=== PATIENT | female | born 2000 | race African-American/Black ===

== ENCOUNTER 2022-11-03 07:02 | Outpatient (OUT) | payer OTHER, SELFPAY ==
--- NOTE | 2022-11-03 07:13 | MR_ITS ---
The [address] [address] Patient Name: LADI FERREIRA MRN: [id number] date: 2000 Sex: F Assigned Patient Location: MRI Current Patient Location: MRI Accession/Order Number: [id number] Exam Date: 11/03/2022 07:30 Report Date: 11/03/2022 08:52 At the request of: DARIO BENITEZ Procedure: MR thoracic spine wo/w con MR thoracic spine wo/w con CLINICAL HISTORY: Paresthesia Of Skin R20.2, Anesthesia R20.0 COMPARISON: MR brain and cervical spine from September 2022 are evaluated. MR TECHNIQUE: Multiplanar multiecho MRI of the thoracic spine is obtained without and with IV contrast with axial and sagittal images. T1 weighted and fluid sensitive images are included. 15 mL of Dotarem utilized for the contrast enhanced portion. FINDINGS: Vertebral body heights are maintained with no fracture or significant malalignment. Normal T2 hyperintensity of the intervertebral discs. Normal marrow fat signal on T1-weighted imaging throughout. No evidence of significant disc bulge or central canal narrowing. Foramina are patent. Spinal cord with normal signal intensity and volume. No focal lesions or abnormal enhancement are identified. IMPRESSION: Negative thoracic spine MRI without and with IV contrast. Specifically no evidence of demyelinating lesions. Electronically authenticated by: ELVER CABELLO Date: 11/03/2022 08:52
== END 2022-11-03 07:03 ==
PROVIDERS: PCP Nurse Practitioner Family; Visit Provider Psychiatry & Neurology Neurology
DX: R20.0 Anesthesia of skin (principal); R20.2 Paresthesia of skin; R53.1 Weakness; F80.81 Childhood onset fluency disorder; R42 Dizziness and giddiness; R53.83 Other fatigue
CPT/HCPCS: 72157; A9575

== ENCOUNTER 2022-11-27 06:47 | Emergency (ER) | payer OTHER, SELFPAY ==
[2022-11-27 06:49] VITALS: BP 130/72; PULSE 75; RESP 20; TEMP 36.8; O2SAT 100; BMI 28.4
--- NOTE | 2022-11-27 07:06 | ED.NAVMDI1 ---
HPI - Nausea/Vomiting/Diarrhea General Chief complaint: Nausea/Vomiting/Diarrhea Stated complaint: VOMITING Time Seen by Provider: 11/27/22 07:05 Mode of arrival: Wheelchair History of Present Illness HPI Narrative: 22-year-old two para one female presents for nausea and vomiting. She's had this for the last 1-2 days. She states she just can't stop vomiting. No fever or hematemesis. No vaginal bleeding. She states her stomach hurts too. No dysuria. Related Data Previous Rx's Medication Instructions Recorded ondansetron 4 mg disintegrating 4 mg PO Q6H PRN nausea and 11/27/22 tablet vomiting #20 tabs Allergies Allergy/AdvReac Type Severity Reaction Status Date / Time No Known Drug Allergies Allergy Verified 11/27/22 06:53 Review of Systems ROS Narrative A ten point review of systems is negative except as noted above. PFSH PFSH Social History Smoking status: Current every day smoker Exam Narrative Exam Narrative: Nurses note and vital signs reviewed and patient is not hypoxic. General: The patient is laying on her side and appears uncomfortable. She has an emesis basin with some saliva in it. Skin: Warm, dry, no pallor noted. There is no rash noted. Head: Normocephalic, atraumatic Eye: Normal conjunctiva, no drainage Ears, Nose, Mouth, and Throat: oral mucosa is moist. Nares patent. Cardiovascular: Regular Rate and Rhythm Respiratory: Patient is in no distress, no accessory muscle use, lungs are clear to auscultation, no wheezing, rales or rhonchi Back: non-tender GI: no tenderness to palpation, no masses appreciated. No rebound, guarding, or rigidity noted. Musculoskeletal: The patient has no evidence of calf tenderness, no pitting edema, symmetrical pulses noted bilaterally Neurological: A&O, normal speech Psychiatric: Cooperative Constitutional Vital Signs, click to edit/add: Last Vital Signs Temp 98.2 F 11/27/22 06:49 Pulse 75 11/27/22 06:49 Resp 20 11/27/22 06:49 BP 130/72 H 11/27/22 06:49 Pulse Ox 100 11/27/22 06:49 Course Vital Signs Vital signs: Vital Signs Temperature 98.2 F 11/27/22 06:49 Pulse Rate 75 11/27/22 06:49 Respiratory Rate 20 11/27/22 06:49 Blood Pressure 130/72 H 11/27/22 06:49 Pulse Oximetry 100 11/27/22 06:49 Temperature 98.2 F 11/27/22 06:49 Pulse Rate 75 11/27/22 06:49 Respiratory Rate 20 11/27/22 06:49 Blood Pressure 130/72 H 11/27/22 06:49 Pulse Oximetry 100 11/27/22 06:49 MDM - Nausea/Vomiting/Diarrhea MDM Narrative Medical decision making narrative: The patient was given IV fluids and Zofran and feels much better now. She is able to be discharged home with a prescription for Zofran. Treatment diagnosis and follow-up were discussed with the patient. Differential Diagnosis Differential diagnosis: Likely food poisoning, gastroenteritis and other (nausea and vomiting in ) Lab Data Attestation: I reviewed the patient's lab results. Labs: Lab Results 11/27/22 Range/Units 07:11 WBC 9.4 (4.0-11.0) 10^3/uL RBC 4.51 (4.20-5.40) 10^6/uL Hgb 13.7 (12.0-16.0) g/dL Hct 39.5 (36.0-48.0) % MCV 87.6 (81.0-99.0) fL MCH 30.4 (26.7-34.0) pg MCHC 34.7 (29.9-35.2) g/dL RDW 13.3 (11.0-15.0) % Plt Count 236 (150-450) 10^3/uL MPV 9.6 (9.5-13.5) fL Neut % (Auto) 72.7 (43.0-75.0) % Lymph % (Auto) 20.6 (20.5-60.0) % [place] % (Auto) 5.7 (1.7-12.0) % Eos % (Auto) 0.5 L (0.9-7.0) % Baso % (Auto) 0.2 (0.2-2.0) % Neut # (Auto) 6.8 H (1.4-6.5) 10^3/uL Lymph # (Auto) 1.9 (1.2-3.8) 10^3/uL [place] # (Auto) 0.5 (0.3-0.8) 10^3/uL Eos # (Auto) 0.1 (0.0-0.7) 10^3/uL Baso # (Auto) 0.0 (0.0-0.1) 10^3/uL Abs Immat Gran (auto) 0.03 (0.00-0.03) 10^3/uL Imm/Tot Granulo (auto) 0.3 (0.0-0.5) % Sodium 133 L (136-145) mmol/L Potassium 3.3 L (3.5-5.1) mmol/L Chloride 101 (98-107) mmol/L Carbon Dioxide 21.3 (21.0-32.0) mmol/L Anion Gap 14.0 BUN 6.0 L (7.0-18.0) mg/dL Creatinine 0.68 (0.55-1.02) mg/dL Est GFR ( Amer) >60 (>=60) Est GFR (Non-Af Amer) >60 (>=60) BUN/Creatinine Ratio 8.8 Glucose 124 H (74-106) mg/dL Calcium 9.2 (8.5-10.1) mg/dL Discharge Plan Discharge Chief Complaint: Nausea/Vomiting/Diarrhea Clinical Impression: Nausea and vomiting during Patient Disposition: Home, Self-Care Time of Disposition Decision: 07:50 Condition: Good Mode of Transportation: Private Vehicle Prescriptions / Home Meds: New ondansetron 4 mg tablet,disintegrating 4 mg PO Q6H PRN (Reason: nausea and vomiting) Qty: 20 0RF Instructions: Nausea and Vomiting in (ED) Stand Alone Forms: Portal Instructions Referrals: ARCELIA MCGUIRE [Primary Care Provider] - 1 week
[2022-11-27] MEDS: 0.9 % SODIUM CHLORIDE 1,000 ML 1000 ML IV (07:17)
[2022-11-27] MEDS: ONDANSETRON PF 4 MG/2 ML VIAL IV (07:17)
[2022-11-27 07:24] LABS: Basophils Percent Auto 0.2 % (0.2-2.0); Eosinophils Absolute Auto 0.1 10^3/uL (0.0-0.7); Eosinophils Percent Auto 0.5 % (0.9-7.0); Hematocrit 39.5 % (36.0-48.0); Hemoglobin 13.7 g/dL (12.0-16.0); Immature Granulocytes Abs Auto 0.03 10^3/uL (0.00-0.03); Immature Granulocytes Pct Auto 0.3 % (0.0-0.5); Lymphocytes Absolute Auto 1.9 10^3/uL (1.2-3.8); Lymphocytes Percent Auto 20.6 % (20.5-60.0); Mean Corpuscular HGB Conc 34.7 g/dL (29.9-35.2); Mean Corpuscular Hemoglobin 30.4 pg (26.7-34.0); Mean Corpuscular Volume 87.6 fL (81.0-99.0); Mean Platelet Volume 9.6 fL (9.5-13.5); Monocytes Absolute Auto 0.5 10^3/uL (0.3-0.8); Monocytes Percent Auto 5.7 % (1.7-12.0); Neutrophils Absolute Auto 6.8 10^3/uL (1.4-6.5); Neutrophils Percent Auto 72.7 % (43.0-75.0); Platelet Count 236 10^3/uL (150-450); Red Blood Count 4.51 10^6/uL (4.20-5.40); Red Cell Distribution Width 13.3 % (11.0-15.0); White Blood Count 9.4 10^3/uL (4.0-11.0)
[2022-11-27 07:37] LABS: BUN Creatinine Ratio 8.8; Calcium 9.2 mg/dL (8.5-10.1); Carbon Dioxide 21.3 mmol/L (21.0-32.0); Chloride 101 mmol/L (98-107); Estimated GFR (African America >60 (>=60); Estimated GFR (Non-African Ame >60 (>=60); Glucose 124 mg/dL (74-106); Potassium 3.3 mmol/L (3.5-5.1); Sodium 133 mmol/L (136-145)
[2022-11-27 08:04] VITALS: BP 99/45; PULSE 64; RESP 16; O2SAT 99
== END 2022-11-27 08:05 | disposition home or self-care (01) ==
PROVIDERS: Emergency Provider Emergency Medicine; PCP Nurse Practitioner Family
DX: O26.893 Other specified pregnancy related conditions, third trimester (principal); R11.2 Nausea with vomiting, unspecified; O99.330 Smoking (tobacco) complicating pregnancy, unspecified trimester; F17.210 Nicotine dependence, cigarettes, uncomplicated; Z3A.00 Weeks of gestation of pregnancy not specified
CPT/HCPCS: 36415; 80048; 85025; 96361; 96374; 99284

== ENCOUNTER 2022-12-05 07:30 | Emergency (ER) | payer OTHER, SELFPAY ==
[2022-12-05 07:42] VITALS: BP 140/88; PULSE 98; RESP 20; TEMP 37; O2SAT 98; BMI 28.3
--- NOTE | 2022-12-05 07:55 | ED.NAVMDI1 ---
HPI - Nausea/Vomiting/Diarrhea General Chief complaint: Nausea/Vomiting/Diarrhea Stated complaint: VOMITTING Time Seen by Provider: 12/05/22 07:55 Source: patient Mode of arrival: Wheelchair Limitations: no limitations History of Present Illness HPI Narrative: Pt presents to the emergency department complaining of nausea and vomiting. Patient is [address] [id number] Dr. Belle. She has not seen Dr. Belle yet. She was seen here a week ago with the same symptoms was given IV fluids and Zofran. symptoms improved she states she ran out of Zofran and she has not been able to stop vomiting every day worse in the morning. She denies any fever, chills, cough or upper respiratory infection symptoms. She denies any abdominal pain. She denies any hematemesis, melena or hematochezia. She denies any diarrhea, constipation. She denies any vaginal bleeding, or discharge. She denies any flank pain, hematuria, dysuria. Related Data Previous Rx's Medication Instructions Recorded ondansetron 4 mg disintegrating 4 mg PO Q6H PRN nausea and 11/27/22 tablet vomiting #20 tabs ondansetron 4 mg disintegrating 4 mg PO Q6H PRN nausea and 11/27/22 tablet vomiting #20 tabs ondansetron HCl 8 mg tablet 8 mg PO Q8H PRN nausea and 12/05/22 vomiting 5 days #14 tabs Allergies Allergy/AdvReac Type Severity Reaction Status Date / Time No Known Drug Allergies Allergy Verified 12/05/22 07:41 Review of Systems ROS Status of ROS 10 or more systems reviewed and unremarkable except as noted in history and below [facility] Social History Smoking status: Current every day smoker Exam Narrative Exam Narrative: Nurses notes and vital signs reviewed and patient is not hypoxic. General: Nontoxic, Actively vomiting. and dry heaving and in no apparent distress. Skin: Warm, dry, no pallor noted. No Rash Head: Normocephalic, atraumatic. Neck: Supple, non-tender. Eye: Pupils are equal, round and EOMI. No scleral icterus. Ears, Nose, Mouth, and Throat: TM clear, no posterior oropharynx erythema or nasal mucosal hypertrophy, uvula is mid-line Oral mucosa is moist Cardiovascular: Regular Rate and Rhythm without murmur, gallop or rub. Respiratory: No accessory muscle use or respiratory distress. Lungs are clear to auscultation, no wheezing, rales or rhonchi Chest Wall: no tenderness Back: No midline thoracic or lumbar vertebral tenderness. No CVA tenderness Musculoskeletal: normal ROM, no calf or popliteal tenderness, no lower extremity edema/swelling GI: Abdomen is soft, non-distended. Normal bowel sounds. No masses appreciated. No tenderness to palpation. No rebound, guarding, or rigidity noted. Neurological: A&O x4. No cranial nerve dysfunction observed. No truncal ataxia. Moves all extremities. Sensation intact. Psychiatric: Cooperative and interactive. Normal mood and affect. Constitutional Vital Signs, click to edit/add: Last Vital Signs Temp 98.6 F 12/05/22 07:42 Pulse 98 H 12/05/22 07:42 Resp 20 12/05/22 07:42 BP 140/88 H 12/05/22 07:42 Pulse Ox 98 12/05/22 07:42 O2 Del Method Nasal Cannula 12/05/22 07:42 Course Vital Signs Vital signs: Vital Signs Temperature 98.6 F 12/05/22 07:42 Pulse Rate 98 H 12/05/22 07:42 Respiratory Rate 20 12/05/22 07:42 Blood Pressure 140/88 H 12/05/22 07:42 Pulse Oximetry 98 12/05/22 07:42 Oxygen Delivery Method Nasal Cannula 12/05/22 07:42 Temperature 98.6 F 12/05/22 07:42 Pulse Rate 98 H 12/05/22 07:42 Respiratory Rate 20 12/05/22 07:42 Blood Pressure 140/88 H 12/05/22 07:42 Pulse Oximetry 98 12/05/22 07:42 Oxygen Delivery Method Nasal Cannula 12/05/22 07:42 MDM - Nausea/Vomiting/Diarrhea MDM Narrative Medical decision making narrative: Patient is nontoxic. She is given 1 L of normal saline and 4 mg of Zofran IV. Symptoms improved. Patient is nontoxic, stable for outpatient follow-up and treatment. Discussed with patient the need to have entire medics and hand specialist so weak 12. She will call Dr. Belle and PCP to follow-up. At this time the patient is without objective evidence of an acute process requiring hospitalization or inpatient management. The patient has remained hemodynamically stable. No additional indication for emergent studies at this time. I answered all questions. Discussed discharge instructions including standard anticipatory guidance and what should prompt a return to the emergency department, including if they get worse are not getting better or develops any new or concerning symptoms. I've given them specific time frame in which to follow-up, and who to follow-up with. The patient demonstrates understanding. Patient is nontoxic and stable for discharge with outpatient follow-up. This note was created with the assistance of a speech recognition program. Although the intention is to generate documents that actually reflects the content of the visit, no guarantees can be provided that every mistake has been identified and corrected by editing. Differential Diagnosis Differential diagnosis: Likely gastroenteritis, drug-induced nausea and vomiting and dehydration Lab Data Attestation: I reviewed the patient's lab results. Labs: Lab Results 12/05/22 12/05/22 Range/Units 08:05 09:11 WBC 11.2 H (4.0-11.0) 10^3/uL RBC 4.37 (4.20-5.40) 10^6/uL Hgb 13.4 (12.0-16.0) g/dL Hct 39.2 (36.0-48.0) % MCV 89.7 (81.0-99.0) fL MCH 30.7 (26.7-34.0) pg MCHC 34.2 (29.9-35.2) g/dL RDW 13.5 (11.0-15.0) % Plt Count 249 (150-450) 10^3/uL MPV 9.4 L (9.5-13.5) fL Neut % (Auto) 71.4 (43.0-75.0) % Lymph % (Auto) 21.3 (20.5-60.0) % [place] % (Auto) 5.5 (1.7-12.0) % Eos % (Auto) 1.0 (0.9-7.0) % Baso % (Auto) 0.4 (0.2-2.0) % Neut # (Auto) 8.0 H (1.4-6.5) 10^3/uL Lymph # (Auto) 2.4 (1.2-3.8) 10^3/uL [place] # (Auto) 0.6 (0.3-0.8) 10^3/uL Eos # (Auto) 0.1 (0.0-0.7) 10^3/uL Baso # (Auto) 0.1 (0.0-0.1) 10^3/uL Abs Immat Gran (auto) 0.05 H (0.00-0.03) 10^3/uL Imm/Tot Granulo (auto) 0.4 (0.0-0.5) % Sodium 138 (136-145) mmol/L Potassium 4.2 (3.5-5.1) mmol/L Chloride 104 (98-107) mmol/L Carbon Dioxide 21.7 (21.0-32.0) mmol/L Anion Gap 16.5 BUN 7.0 (7.0-18.0) mg/dL Creatinine 0.73 (0.55-1.02) mg/dL Est GFR ( Amer) >60 (>=60) Est GFR (Non-Af Amer) >60 (>=60) BUN/Creatinine Ratio 9.6 Glucose 165 H (74-106) mg/dL Calcium 9.4 (8.5-10.1) mg/dL Urine Color Yellow (YELLOW) Urine Clarity Clear (CLEAR) Urine pH 7.5 (5.0-9.0) Ur Specific [place] 1.020 (1.005-1.025) Urine Protein Negative (NEG/TRACE) mg/dL Urine Glucose (UA) Negative (NEGATIVE) mg/dL Urine Ketones 15 A (NEGATIVE) mg/dL Urine Occult Blood Negative (NEGATIVE) Urine Nitrite Negative (NEGATIVE) Urine Bilirubin Negative (NEGATIVE) Urine Urobilinogen 0.2 (0.2-1.0) EU/dL Ur Leukocyte Esterase Negative (NEGATIVE) Discharge Plan Discharge Chief Complaint: Nausea/Vomiting/Diarrhea Clinical Impression: Nausea and vomiting during Patient Disposition: Home, Self-Care Time of Disposition Decision: 08:09 Condition: Good Mode of Transportation: Private Vehicle Prescriptions / Home Meds: New ondansetron HCl 8 mg tablet 8 mg PO Q8H PRN (Reason: nausea and vomiting) 5 Days Qty: 14 0RF No Action ondansetron 4 mg tablet,disintegrating 4 mg PO Q6H PRN (Reason: nausea and vomiting) Qty: 20 0RF ondansetron 4 mg tablet,disintegrating 4 mg PO Q6H PRN (Reason: nausea and vomiting) Qty: 20 0RF Instructions: Nausea and Vomiting in (ED) Stand Alone Forms: Portal Instructions Referrals: Bennett Belle DO [Physician] - 1 week ARCELIA MCGUIRE [Primary Care Provider] - 1 week
[2022-12-05] MEDS: 0.9 % SODIUM CHLORIDE 1,000 ML 999 ML IV (08:12)
[2022-12-05] MEDS: ONDANSETRON PF 4 MG/2 ML VIAL IV (08:12)
[2022-12-05 09:20] LABS: Bilirubin Urine NEGATIVE (NEGATIVE); Blood Urine NEGATIVE (NEGATIVE); Clarity Urine CLEAR (CLEAR); Color Urine YELLOW (YELLOW); Glucose Urine UA NEGATIVE (NEGATIVE); Ketones Urine 15 mg/dL (NEGATIVE); Leukocyte Esterase Urine NEGATIVE (NEGATIVE); Nitrite Urine NEGATIVE (NEGATIVE); Protein Urine NEGATIVE (NEG/TRACE); Urobilinogen Urine 0.2 EU/dL (0.2-1.0); pH Urine 7.5 (5.0-9.0)
[2022-12-05 09:32] LABS: Urine Microscopic Indicated NO
[2022-12-05 09:45] LABS: Basophils Absolute Auto 0.1 10^3/uL (0.0-0.1); Basophils Percent Auto 0.4 % (0.2-2.0); Eosinophils Absolute Auto 0.1 10^3/uL (0.0-0.7); Hematocrit 39.2 % (36.0-48.0); Hemoglobin 13.4 g/dL (12.0-16.0); Immature Granulocytes Abs Auto 0.05 10^3/uL (0.00-0.03); Immature Granulocytes Pct Auto 0.4 % (0.0-0.5); Lymphocytes Absolute Auto 2.4 10^3/uL (1.2-3.8); Lymphocytes Percent Auto 21.3 % (20.5-60.0); Mean Corpuscular HGB Conc 34.2 g/dL (29.9-35.2); Mean Corpuscular Hemoglobin 30.7 pg (26.7-34.0); Mean Corpuscular Volume 89.7 fL (81.0-99.0); Mean Platelet Volume 9.4 fL (9.5-13.5); Monocytes Absolute Auto 0.6 10^3/uL (0.3-0.8); Monocytes Percent Auto 5.5 % (1.7-12.0); Neutrophils Percent Auto 71.4 % (43.0-75.0); Platelet Count 249 10^3/uL (150-450); Red Blood Count 4.37 10^6/uL (4.20-5.40); Red Cell Distribution Width 13.5 % (11.0-15.0); White Blood Count 11.2 10^3/uL (4.0-11.0)
[2022-12-05 10:01] LABS: Anion Gap 16.5; BUN Creatinine Ratio 9.6; Calcium 9.4 mg/dL (8.5-10.1); Carbon Dioxide 21.7 mmol/L (21.0-32.0); Chloride 104 mmol/L (98-107); Estimated GFR (African America >60 (>=60); Estimated GFR (Non-African Ame >60 (>=60); Glucose 165 mg/dL (74-106); Potassium 4.2 mmol/L (3.5-5.1); Sodium 138 mmol/L (136-145)
== END 2022-12-05 10:27 | disposition home or self-care (01) ==
PROVIDERS: Emergency Provider Emergency Medicine; PCP Nurse Practitioner Family
DX: O26.891 Other specified pregnancy related conditions, first trimester (principal); R11.2 Nausea with vomiting, unspecified; Z3A.08 8 weeks gestation of pregnancy; O99.331 Smoking (tobacco) complicating pregnancy, first trimester; F17.210 Nicotine dependence, cigarettes, uncomplicated
CPT/HCPCS: 36415; 80048; 81003; 85025; 96361; 96374; 99284

== ENCOUNTER 2022-12-17 09:37 | Outpatient (OUT) | payer OTHER, SELFPAY ==
--- NOTE | 2022-12-17 09:37 | US_ITS ---
The [address] [address] Patient Name: LADI FERREIRA MRN: [id number] date: 2000 Sex: F Assigned Patient Location: US Current Patient Location: US Accession/Order Number: [id number] Exam Date: 12/17/2022 09:37 Report Date: 12/17/2022 15:12 At the request of: MARY WILKS Procedure: US OB transvaginal EXAMINATION: US OB transvaginal HISTORY: MISSED PERIOD COMPARISON: No relevant comparison available. FINDINGS: GESTATIONAL SAC: Present and normal appearing. YOLK SAC: Present and normal appearing. POLE: Present and normal appearing. CARDIAC: Present. UTERUS: Normal size and appearance. OVARIES: Right: Normal. Left: Normal. CERVIX: 5.5 cm in length and closed. CUL-DE-SAC: Normal. OTHER: None. AGE BY LMP: 9 weeks 3 days CAROL BY LMP: 07/19/2023 AGE BY US CRL: 9 weeks 5 days CAROL BY US CRL: 07/17/2023 US/US OB transvaginal IMPRESSION: 1. Single live intrauterine . Electronically authenticated by: TALIA IBARRA Date: 12/17/2022 15:12
== END 2022-12-17 09:38 | disposition home or self-care (01) ==
LOC: US 09:37
PROVIDERS: PCP Nurse Practitioner Family; Visit Provider Obstetrics & Gynecology
DX: Z34.91 Encounter for supervision of normal pregnancy, unspecified, first trimester (principal); Z3A.09 9 weeks gestation of pregnancy; N92.6 Irregular menstruation, unspecified
CPT/HCPCS: 76817

== ENCOUNTER 2022-12-19 18:11 | Emergency (ER) | payer OTHER, SELFPAY ==
[2022-12-19 18:30] VITALS: BP 154/75; PULSE 69; RESP 18; TEMP 36.7; O2SAT 100; BMI 28.5
--- NOTE | 2022-12-19 18:44 | ED_ITS ---
Documented by User: SUSANA Enciso 12/19/22 20:10 HPI - General Adult General Chief complaint: Nausea/Vomiting/Diarrhea Stated complaint: 10 weeks vomiting Time Seen by Provider: 12/19/22 18:18 Source: patient Mode of arrival: Wheelchair Limitations: no limitations History of Present Illness HPI narrative: patient is a 22-year-old female G 2 who presents to the Emergency Room with concerns of nausea, vomiting and diarrhea. Patient is ten weeks gestation based on ultrasound performed on which demonstrated intrauterine . Patient states for the past five week she's been experiencing morning sickness and hyperemesis gravidarum with prior Emergency Room visits. Patient reports some relief with Zofran 8 mg ODT, but does not get relief with Zofran 4 mg or Phenergan from [employer]. Patient states she has been vomiting since yesterday, diarrhea ?2 today. She denies any abdominal pain or fever. She denies dysuria. Patient denies any vaginal discharge or bleeding. Related Data Previous Rx's Medication Instructions Recorded ondansetron 4 mg disintegrating 4 mg PO Q6H PRN nausea and 11/27/22 tablet vomiting #20 tabs ondansetron 4 mg disintegrating 4 mg PO Q6H PRN nausea and 11/27/22 tablet vomiting #20 tabs ondansetron HCl 8 mg tablet 8 mg PO Q8H PRN nausea and 12/05/22 vomiting 5 days #14 tabs ondansetron 8 mg disintegrating 8 mg PO TID PRN nausea and 12/19/22 tablet vomiting 5 days #15 tabs Allergies Allergy/AdvReac Type Severity Reaction Status Date / Time No Known Drug Allergies Allergy Verified 12/19/22 18:36 Review of Systems ROS Constitutional Denies: fever, chills or change in weight Eyes Denies: change in vision Ears, nose, mouth, and throat Denies: throat pain, neck pain or throat swelling Cardiovascular Denies: chest pain or palpitations Respiratory Denies: shortness of breath or cough Gastrointestinal Reports: nausea and vomiting; Denies: abdominal pain Genitourinary Denies: painful urination or urinary frequency Musculoskeletal Denies: back pain or neck pain Integumentary/Breast Denies: rash, itching or redness Neurological Denies: headache Psychiatric Denies: anxiety Endocrine Denies: excessive urination PFSH PFSH Social History Smoking status: Current every day smoker Exam Narrative Exam Narrative: Nurses notes and vital signs reviewed and patient is not hypoxic. General: The patient appears ill, dry heaving at the bedside. Patient comes in between episodes and is talkative regarding symptoms and her 1st trimester experience with morning sickness. Skin: Warm, dry, no pallor noted.no evidence of rash or petechiae Head: Normocephalic, atraumatic Neck: Supple, trachea mid-line, no tenderness, no lymphadenopathy Eye: Pupils are equal, round and reactive to light, EOMI Ears, Nose, Mouth, and Throat: external exam is unremarkable. Cardiovascular: Regular Rate and Rhythm Respiratory: Patient is in no distress, no accessory muscle use, lungs are clear to auscultation, no wheezing, rales or rhonchi. Chest Wall: no tenderness Back: non-tender, no CVA tenderness, Musculoskeletal: normal ROM, no tenderness, no swelling GI: Normal bowel sounds, no tenderness to palpation, no masses appreciated. No rebound, guarding, or rigidity noted. abdomen nonsurgical Neurological: A&O x4 Psychiatric: Cooperative Constitutional Vital Signs, click to edit/add: Last Vital Signs Temp 98.1 F 12/19/22 18:30 Pulse 69 12/19/22 18:30 Resp 18 12/19/22 18:30 BP 154/75 H 12/19/22 18:30 Pulse Ox 100 12/19/22 18:30 O2 Del Method Room Air 12/19/22 18:30 Course Vital Signs Vital signs: Vital Signs Temperature 98.1 F 12/19/22 18:30 Pulse Rate 69 12/19/22 18:30 Respiratory Rate 18 12/19/22 18:30 Blood Pressure 154/75 H 12/19/22 18:30 Pulse Oximetry 100 12/19/22 18:30 Oxygen Delivery Method Room Air 12/19/22 18:30 Temperature 98.1 F 12/19/22 18:30 Pulse Rate 69 12/19/22 18:30 Respiratory Rate 18 12/19/22 18:30 Blood Pressure 154/75 H 12/19/22 18:30 Pulse Oximetry 100 12/19/22 18:30 Oxygen Delivery Method Room Air 12/19/22 18:30 Medical Decision Making MDM Narrative Medical decision making narrative: patient presents with 1st trimester nausea and vomiting.presentation consistent with hyperemesis gravidarum. Prior ultrasound from 12/17/22 is positive for intrauterine which would make her ten weeks gestation today. Patient medicated with Zofran 4 mg IV, 25 mg IM Phenergan and 25 mg IV Benadryl. Patient given IV fluids. We'll reassess her symptoms. patient reevaluated, symptoms significantly improved. Tolerating by mouth ice chips. Patient given a prescription of the 8 mg pending follow-up with her D[employer]NAGER to discuss further management. The patient is to followup with primary care physician in next 2-3 days or to return to the emergency department should any of the signs or symptoms worsen or new symptoms develop. Patient had questions answered. The patient agrees with the following Diagnosis and Treatment plan and the patient will be discharged home. Lab Data Lab results reviewed: Yes I reviewed the patient's lab results Labs: Lab Results 12/19/22 Range/Units 18:40 WBC 12.3 H (4.0-11.0) 10^3/uL RBC 4.52 (4.20-5.40) 10^6/uL Hgb 13.7 (12.0-16.0) g/dL Hct 39.6 (36.0-48.0) % MCV 87.6 (81.0-99.0) fL MCH 30.3 (26.7-34.0) pg MCHC 34.6 (29.9-35.2) g/dL RDW 12.9 (11.0-15.0) % Plt Count 245 (150-450) 10^3/uL MPV 9.7 (9.5-13.5) fL Neut % (Auto) 79.0 H (43.0-75.0) % Lymph % (Auto) 15.7 L (20.5-60.0) % [place] % (Auto) 4.5 (1.7-12.0) % Eos % (Auto) 0.1 L (0.9-7.0) % Baso % (Auto) 0.2 (0.2-2.0) % Neut # (Auto) 9.7 H (1.4-6.5) 10^3/uL Lymph # (Auto) 1.9 (1.2-3.8) 10^3/uL [place] # (Auto) 0.6 (0.3-0.8) 10^3/uL Eos # (Auto) 0.0 (0.0-0.7) 10^3/uL Baso # (Auto) 0.0 (0.0-0.1) 10^3/uL Abs Immat Gran (auto) 0.06 H (0.00-0.03) 10^3/uL Imm/Tot Granulo (auto) 0.5 (0.0-0.5) % Sodium 135 L (136-145) mmol/L Potassium 3.6 (3.5-5.1) mmol/L Chloride 100 (98-107) mmol/L Carbon Dioxide 20.4 L (21.0-32.0) mmol/L Anion Gap 18.2 BUN 6.0 L (7.0-18.0) mg/dL Creatinine 0.67 (0.55-1.02) mg/dL Est GFR ( Amer) >60 (>=60) Est GFR (Non-Af Amer) >60 (>=60) BUN/Creatinine Ratio 9.0 Glucose 95 (74-106) mg/dL Calcium 9.0 (8.5-10.1) mg/dL Total Bilirubin 0.5 (0.2-1.0) mg/dL Direct Bilirubin 0.1 (0.0-0.2) mg/dL AST <5 L (15-37) U/L ALT <6 L (14-59) U/L Alkaline Phosphatase 41 L (46-116) U/L Total Protein 7.1 (6.4-8.2) g/dL Albumin 4.0 (3.4-5.0) g/dL Globulin 3.1 g/dL Albumin/Globulin Ratio 1.3 Discharge Plan Discharge Chief Complaint: Nausea/Vomiting/Diarrhea Clinical Impression: Nausea and vomiting during Patient Disposition: Home, Self-Care Time of Disposition Decision: 20:30 Condition: Good Prescriptions / Home Meds: New ondansetron 8 mg tablet,disintegrating 8 mg PO TID PRN (Reason: nausea and vomiting) 5 Days Qty: 15 1RF No Action ondansetron 4 mg tablet,disintegrating 4 mg PO Q6H PRN (Reason: nausea and vomiting) Qty: 20 0RF ondansetron 4 mg tablet,disintegrating 4 mg PO Q6H PRN (Reason: nausea and vomiting) Qty: 20 0RF ondansetron HCl 8 mg tablet 8 mg PO Q8H PRN (Reason: nausea and vomiting) 5 Days Qty: 14 0RF Instructions: Nausea and Vomiting in (ED) Stand Alone Forms: Portal Instructions Referrals: Bennett Belle DO [Physician] - As soon as possible ARCELIA MCGUIRE [Primary Care Provider] - 1 week Discharge Date/Time: 12/19/22 21:03 Documented by User: Tari Abreu MD 12/20/22 20:32 HPI - General Adult General Chief complaint: Nausea/Vomiting/Diarrhea Stated complaint: 10 weeks vomiting Time Seen by Provider: 12/19/22 18:18 Related Data Previous Rx's Medication Instructions Recorded ondansetron 4 mg disintegrating 4 mg PO Q6H PRN nausea and 11/27/22 tablet vomiting #20 tabs ondansetron 4 mg disintegrating 4 mg PO Q6H PRN nausea and 11/27/22 tablet vomiting #20 tabs ondansetron HCl 8 mg tablet 8 mg PO Q8H PRN nausea and 12/05/22 vomiting 5 days #14 tabs ondansetron 8 mg disintegrating 8 mg PO TID PRN nausea and 12/19/22 tablet vomiting 5 days #15 tabs Allergies Allergy/AdvReac Type Severity Reaction Status Date / Time No Known Drug Allergies Allergy Verified 12/19/22 18:36 PFSH PFSH Social History Smoking status: Current every day smoker Exam Constitutional Vital Signs, click to edit/add: Last Vital Signs Temp 98.1 F 12/19/22 18:30 Pulse 69 12/19/22 18:30 Resp 18 12/19/22 18:30 BP 154/75 H 12/19/22 18:30 Pulse Ox 100 12/19/22 18:30 O2 Del Method Room Air 12/19/22 18:30 Course Vital Signs Vital signs: Vital Signs Temperature 98.1 F 12/19/22 18:30 Pulse Rate 69 12/19/22 18:30 Respiratory Rate 18 12/19/22 18:30 Blood Pressure 154/75 H 12/19/22 18:30 Pulse Oximetry 100 12/19/22 18:30 Oxygen Delivery Method Room Air 12/19/22 18:30 Temperature 98.1 F 12/19/22 18:30 Pulse Rate 69 12/19/22 18:30 Respiratory Rate 18 12/19/22 18:30 Blood Pressure 154/75 H 12/19/22 18:30 Pulse Oximetry 100 12/19/22 18:30 Oxygen Delivery Method Room Air 12/19/22 18:30 Medical Decision Making MDM Narrative Medical decision making narrative: patient presents with 1st trimester nausea and vomiting.presentation consistent with hyperemesis gravidarum. Prior ultrasound from 12/17/22 is positive for intrauterine which would make her ten weeks gestation today. Patient medicated with Zofran 4 mg IV, 25 mg IM Phenergan and 25 mg IV Benadryl. Patient given IV fluids. We'll reassess her symptoms. patient reevaluated, symptoms significantly improved. Tolerating by mouth ice chips. Patient given a prescription of the 8 mg pending follow-up with her [employer]GER to discuss further management. The patient is to followup with primary care physician in next 2-3 days or to return to the emergency department should any of the signs or symptoms worsen or new symptoms develop. Patient had questions answered. The patient agrees with the following Diagnosis and Treatment plan and the patient will be discharged home. Attending physician attestation I have reviewed the mid-level documentation, agree with the documentation, medical decision making and treatment plan as outlined by the mid-level provider. Lab Data Labs: Lab Results 12/19/22 Range/Units 18:40 WBC 12.3 H (4.0-11.0) 10^3/uL RBC 4.52 (4.20-5.40) 10^6/uL Hgb 13.7 (12.0-16.0) g/dL Hct 39.6 (36.0-48.0) % MCV 87.6 (81.0-99.0) fL MCH 30.3 (26.7-34.0) pg MCHC 34.6 (29.9-35.2) g/dL RDW 12.9 (11.0-15.0) % Plt Count 245 (150-450) 10^3/uL MPV 9.7 (9.5-13.5) fL Neut % (Auto) 79.0 H (43.0-75.0) % Lymph % (Auto) 15.7 L (20.5-60.0) % [place] % (Auto) 4.5 (1.7-12.0) % Eos % (Auto) 0.1 L (0.9-7.0) % Baso % (Auto) 0.2 (0.2-2.0) % Neut # (Auto) 9.7 H (1.4-6.5) 10^3/uL Lymph # (Auto) 1.9 (1.2-3.8) 10^3/uL [place] # (Auto) 0.6 (0.3-0.8) 10^3/uL Eos # (Auto) 0.0 (0.0-0.7) 10^3/uL Baso # (Auto) 0.0 (0.0-0.1) 10^3/uL Abs Immat Gran (auto) 0.06 H (0.00-0.03) 10^3/uL Imm/Tot Granulo (auto) 0.5 (0.0-0.5) % Sodium 135 L (136-145) mmol/L Potassium 3.6 (3.5-5.1) mmol/L Chloride 100 (98-107) mmol/L Carbon Dioxide 20.4 L (21.0-32.0) mmol/L Anion Gap 18.2 BUN 6.0 L (7.0-18.0) mg/dL Creatinine 0.67 (0.55-1.02) mg/dL Est GFR ( Amer) >60 (>=60) Est GFR (Non-Af Amer) >60 (>=60) BUN/Creatinine Ratio 9.0 Glucose 95 (74-106) mg/dL Calcium 9.0 (8.5-10.1) mg/dL Total Bilirubin 0.5 (0.2-1.0) mg/dL Direct Bilirubin 0.1 (0.0-0.2) mg/dL AST <5 L (15-37) U/L ALT <6 L (14-59) U/L Alkaline Phosphatase 41 L (46-116) U/L Total Protein 7.1 (6.4-8.2) g/dL Albumin 4.0 (3.4-5.0) g/dL Globulin 3.1 g/dL Albumin/Globulin Ratio 1.3 Discharge Plan Discharge Chief Complaint: Nausea/Vomiting/Diarrhea Clinical Impression: Nausea and vomiting during Patient Disposition: Home, Self-Care Time of Disposition Decision: 20:30 Condition: Good Prescriptions / Home Meds: New ondansetron 8 mg tablet,disintegrating 8 mg PO TID PRN (Reason: nausea and vomiting) 5 Days Qty: 15 1RF No Action ondansetron 4 mg tablet,disintegrating 4 mg PO Q6H PRN (Reason: nausea and vomiting) Qty: 20 0RF ondansetron 4 mg tablet,disintegrating 4 mg PO Q6H PRN (Reason: nausea and vomiting) Qty: 20 0RF ondansetron HCl 8 mg tablet 8 mg PO Q8H PRN (Reason: nausea and vomiting) 5 Days Qty: 14 0RF Instructions: Nausea and Vomiting in (ED) Stand Alone Forms: Portal Instructions Referrals: Bennett Belle DO [Physician] - As soon as possible ARCELIA MCGUIRE [Primary Care Provider] - 1 week Discharge Date/Time: 12/19/22 21:03
[2022-12-19] MEDS: PROMETHAZINE HCL 25 MG/ML VIAL IM (18:55)
[2022-12-19] MEDS: ONDANSETRON PF 4 MG/2 ML VIAL IV (18:55)
[2022-12-19] MEDS: DIPHENHYDRAMINE HCL 50 MG/ML (1ML) VIAL 25 MG IV (18:55)
[2022-12-19] MEDS: 0.9 % SODIUM CHLORIDE 1,000 ML 999 ML IV (18:56)
[2022-12-19 19:13] LABS: Basophils Percent Auto 0.2 % (0.2-2.0); Eosinophils Percent Auto 0.1 % (0.9-7.0); Hematocrit 39.6 % (36.0-48.0); Hemoglobin 13.7 g/dL (12.0-16.0); Immature Granulocytes Abs Auto 0.06 10^3/uL (0.00-0.03); Immature Granulocytes Pct Auto 0.5 % (0.0-0.5); Lymphocytes Absolute Auto 1.9 10^3/uL (1.2-3.8); Lymphocytes Percent Auto 15.7 % (20.5-60.0); Mean Corpuscular HGB Conc 34.6 g/dL (29.9-35.2); Mean Corpuscular Hemoglobin 30.3 pg (26.7-34.0); Mean Corpuscular Volume 87.6 fL (81.0-99.0); Mean Platelet Volume 9.7 fL (9.5-13.5); Monocytes Absolute Auto 0.6 10^3/uL (0.3-0.8); Monocytes Percent Auto 4.5 % (1.7-12.0); Neutrophils Absolute Auto 9.7 10^3/uL (1.4-6.5); Platelet Count 245 10^3/uL (150-450); Red Blood Count 4.52 10^6/uL (4.20-5.40); Red Cell Distribution Width 12.9 % (11.0-15.0); White Blood Count 12.3 10^3/uL (4.0-11.0)
[2022-12-19 19:22] LABS: Anion Gap 18.2; Carbon Dioxide 20.4 mmol/L (21.0-32.0); Chloride 100 mmol/L (98-107); Estimated GFR (African America >60 (>=60); Estimated GFR (Non-African Ame >60 (>=60); Glucose 95 mg/dL (74-106); Potassium 3.6 mmol/L (3.5-5.1); Sodium 135 mmol/L (136-145)
[2022-12-19 19:27] LABS: Albumin Globulin Ratio 1.3; Alkaline Phosphatase 41 U/L (46-116); Bilirubin Direct 0.1 mg/dL (0.0-0.2); Bilirubin Total 0.5 mg/dL (0.2-1.0); Globulin 3.1 g/dL; Total Protein 7.1 g/dL (6.4-8.2)
[2022-12-19 19:34] LABS: Alanine Aminotransferase <6 U/L (14-59); Aspartate Amino Transferase <5 U/L (15-37)
== END 2022-12-19 21:03 | disposition home or self-care (01) ==
PROVIDERS: Personal Emergency Response Attendant; Emergency Provider Emergency Medicine; PCP Nurse Practitioner Family
DX: O26.891 Other specified pregnancy related conditions, first trimester (principal); R11.2 Nausea with vomiting, unspecified; O99.331 Smoking (tobacco) complicating pregnancy, first trimester; F17.210 Nicotine dependence, cigarettes, uncomplicated; Z3A.10 10 weeks gestation of pregnancy
CPT/HCPCS: 36415; 80048; 80076; 81003; 85025; 96372; 96374; 96375; 99285

== ENCOUNTER 2022-12-22 15:14 | Outpatient (OUT) | payer OTHER, SELFPAY ==
[2022-12-22 15:43] LABS: Basophils Percent Auto 0.4 % (0.2-2.0); Eosinophils Absolute Auto 0.2 10^3/uL (0.0-0.7); Eosinophils Percent Auto 1.5 % (0.9-7.0); Hematocrit 36.2 % (36.0-48.0); Hemoglobin 12.6 g/dL (12.0-16.0); Immature Granulocytes Abs Auto 0.04 10^3/uL (0.00-0.03); Immature Granulocytes Pct Auto 0.4 % (0.0-0.5); Lymphocytes Absolute Auto 2.5 10^3/uL (1.2-3.8); Lymphocytes Percent Auto 24.2 % (20.5-60.0); Mean Corpuscular HGB Conc 34.8 g/dL (29.9-35.2); Mean Corpuscular Hemoglobin 31.2 pg (26.7-34.0); Mean Corpuscular Volume 89.6 fL (81.0-99.0); Mean Platelet Volume 9.5 fL (9.5-13.5); Monocytes Absolute Auto 0.6 10^3/uL (0.3-0.8); Monocytes Percent Auto 5.4 % (1.7-12.0); Neutrophils Percent Auto 68.1 % (43.0-75.0); Platelet Count 222 10^3/uL (150-450); Red Blood Count 4.04 10^6/uL (4.20-5.40); White Blood Count 10.2 10^3/uL (4.0-11.0)
[2022-12-22 15:48] LABS: BOX Test Sent Out SENT
[2022-12-22 16:00] LABS: Estimated Average Glucose 117 mg/dL; Glycohemoglobin A1C 5.7 % (4.5-6.2)
[2022-12-22 16:15] LABS: Thyroid Stimulating Hormone 0.619 uIU/mL (0.358-3.740)
[2022-12-23 05:07] LABS: HCV Ab Non Reactive (Non Reactive); HIV Ab/p24 Ag Screen Non Reactive (Non Reactive); Rubella Antibodies, IgG 2.06 index (Immune >0.99)
[2022-12-23 06:09] LABS: HBsAg Screen Negative (Negative)
[2022-12-23 11:09] LABS: Rapid Plasma Reagin, Quant Non Reactive (NonRea<1:1)
== END 2022-12-22 15:15 | disposition home or self-care (01) ==
LOC: LAB 15:15
PROVIDERS: PCP Nurse Practitioner Family; Visit Provider Obstetrics & Gynecology
DX: N91.2 Amenorrhea, unspecified (principal)
CPT/HCPCS: 36415; 83036; 84443; 85025; 86592; 86706; 86762; 86803; 86850; 86900; 86901; 87086; 87389

== ENCOUNTER 2023-01-12 10:50 | Outpatient (REF) | payer OTHER, SELFPAY ==
[2023-01-17 12:08] LABS: Age Gdln ACOG Testing Note (.); IGP, rfx Aptima HPV ASCU Note (.)
== END 2023-01-12 10:51 | disposition home or self-care (01) ==
LOC: LAB 10:50
PROVIDERS: PCP Nurse Practitioner Family; Visit Provider Obstetrics & Gynecology
DX: Z12.4 Encounter for screening for malignant neoplasm of cervix (principal)
CPT/HCPCS: G0145

== ENCOUNTER 2023-03-01 13:38 | Outpatient (OUT) | payer OTHER, SELFPAY ==
--- NOTE | 2023-03-01 13:41 | US_ITS ---
[address] [address] Patient Name: ALDI FERREIRA MRN: [id number] date: 2000 Sex: F Assigned Patient Location: US Current Patient Location: Accession/Order Number: [id number] Exam Date: 03/01/2023 13:42 Report Date: 03/01/2023 18:50 At the request of: SHANNON MARSH Procedure: US OB cervical length EXAMINATION: US OB anatomy HISTORY: ANATOMY COMPARISON: No relevant comparison available. TECHNIQUE: Transabdominal sonographic examination was performed for obstetrical and evaluation. FINDINGS: Number: 1 Heart Rate: 151.0 bpm H.B. /min Amniotic Fluid Volume: Subjectively normal position: Cephalic Placental Location: ANTERIOR, grade 1, placental edge 3.1 cm from the internal os Cervix Length: 4 cm , closed Normal anatomy: Lateral ventricles, cerebellum, posterior fossa, nose, lips, orbits, four-chamber heart, RVOT, LVOT, diaphragm, stomach, kidneys, abdominal cord insertion, bladder, umbilical arteries, three-vessel cord, spine, extremities BIOMETRY: BPD: 4.7 cm 20 weeks 2 days , 63% HC: 17.6 cm 20 weeks 1 days, 48% AC: 15.6 cm 20 weeks 5 days, 70% FL: 3.4 cm 20 weeks 5 days, 67% EFW:368.4 grams; 13 ounces, 81% FL/AC: 21.8 FL/BPD: 71.9 HC/AC: 1.1 GESTATIONAL AGE: Age by EDC: 20 weeks 0 days CAROL by EDC: 07/19/2023 Age by current US: 20 weeks 3 days CAROL by current US: 07/16/2023 US/US OB cervical length IMPRESSION: Low lying placenta, otherwise normal anatomy scan *Reference: [facility] Practice Guideline for the performance of Obstetric Ultrasound Examinations, February 20, 2007. Electronically authenticated by: SAMMI DONNELLY Date: 03/01/2023 18:50
--- NOTE | 2023-03-01 13:41 | US_ITS ---
[address] [address] Patient Name: LADI FERREIRA MRN: [id number] date: 2000 Sex: F Assigned Patient Location: US Current Patient Location: Accession/Order Number: [id number] Exam Date: 03/01/2023 13:42 Report Date: 03/01/2023 18:50 At the request of: SHANNON MARSH Procedure: US OB anatomy EXAMINATION: US OB anatomy HISTORY: ANATOMY COMPARISON: No relevant comparison available. TECHNIQUE: Transabdominal sonographic examination was performed for obstetrical and evaluation. FINDINGS: Number: 1 Heart Rate: 151.0 bpm H.B. /min Amniotic Fluid Volume: Subjectively normal position: Cephalic Placental Location: ANTERIOR, grade 1, placental edge 3.1 cm from the internal os Cervix Length: 4 cm , closed Normal anatomy: Lateral ventricles, cerebellum, posterior fossa, nose, lips, orbits, four-chamber heart, RVOT, LVOT, diaphragm, stomach, kidneys, abdominal cord insertion, bladder, umbilical arteries, three-vessel cord, spine, extremities BIOMETRY: BPD: 4.7 cm 20 weeks 2 days , 63% HC: 17.6 cm 20 weeks 1 days, 48% AC: 15.6 cm 20 weeks 5 days, 70% FL: 3.4 cm 20 weeks 5 days, 67% EFW:368.4 grams; 13 ounces, 81% FL/AC: 21.8 FL/BPD: 71.9 HC/AC: 1.1 GESTATIONAL AGE: Age by EDC: 20 weeks 0 days CAROL by EDC: 07/19/2023 Age by current US: 20 weeks 3 days CAROL by current US: 07/16/2023 US/US OB anatomy IMPRESSION: Low lying placenta, otherwise normal anatomy scan *Reference: [facility] Practice Guideline for the performance of Obstetric Ultrasound Examinations, February 20, 2007. Electronically authenticated by: SAMMI DONNELLY Date: 03/01/2023 18:50
== END 2023-03-01 13:39 | disposition home or self-care (01) ==
LOC: US 13:38
PROVIDERS: PCP Nurse Practitioner Family; Visit Provider Obstetrics & Gynecology
DX: O44.42 Low lying placenta NOS or without hemorrhage, second trimester (principal); Z3A.20 20 weeks gestation of pregnancy
CPT/HCPCS: 76805; 76817

== ENCOUNTER 2024-02-22 15:09 | Outpatient (OUT) | payer OTHER, SELFPAY ==
--- NOTE | 2024-02-22 15:30 | XR_ITS ---
The [address] [address] Patient Name: LADI FERREIRA MRN: [id number] date: 2000 Sex: F Assigned Patient Location: [facility] Current Patient Location: [facility] Accession/Order Number: [id number] Exam Date: 02/22/2024 15:40 Report Date: 02/22/2024 16:24 At the request of: MARY WILKS Procedure: XR chest 2V EXAM: XR chest 2V HISTORY: Preop exam COMPARISON: None. TECHNIQUE: Upright PA and lateral chest x-ray FINDINGS: The heart is not enlarged and the vasculature is not distended. No acute infiltrate, effusion or pneumothorax is identified. The osseous structures are grossly intact. XR/XR chest 2V IMPRESSION: No acute infiltrate or evidence of cardiac decompensation. Electronically authenticated by: MARISOL TRUJILLO Date: 02/22/2024 16:24
== END 2024-02-22 15:10 | disposition home or self-care (01) ==
LOC: PST 15:10
PROVIDERS: PCP Nurse Practitioner Family; Visit Provider Obstetrics & Gynecology
DX: Z01.810 Encounter for preprocedural cardiovascular examination (principal)
CPT/HCPCS: 71046

== ENCOUNTER 2024-03-02 08:48 | Day surgery (SDC) | payer OTHER, SELFPAY ==
[2024-02-22 15:34] VITALS: BP 123/80; PULSE 90; TEMP 36.3; O2SAT 100; BMI 37.9
[2024-03-02] VITALS (15 sets, daily range): BP systolic 132–170; BP diastolic 72–116; PULSE 56–81; TEMP 36.1–36.2; O2SAT 94–100; BMI 38.2
--- OUTSIDE RECORDS SUMMARY | 2024-03-02 08:55 | XMS_ITS | CCD ---
Author Organization [facility] Care Team Providers Care Business Machine Operator Name Role Phone ALBERTA, ROBIN Unavailable Unavailable IMCA Unavailable Unavailable ALBERTA, ROBIN Unavailable Unavailable ROSIBEL PLEITEZ Attending Unavailable DANGELO POWER Attending Unavailable NICK Andersen Primary Care Provider LAURO Garcia Emergency Provider [phone] NICK Chen Primary Care Provider DO Dario Garcia Attending Provider [phone] SHAYLA, JULIA Primary Care Unavailable EMMANUEL, DARIO Attending Unavailable DARIO GARCIA Consulting Unavailable LUCIO GARCIALE Admitting Unavailable JOSEFINA HORVATH Consulting Unavailable SHAYLA, JULIA Admitting Unavailable SHAYLA, JULIA Attending Unavailable SHAYLA, JULIA Consulting Unavailable SHAYLA, JULIA Primary Care Unavailable KATALINA BORJA Consulting Unavailable SHAYLA, JULIA Admitting Unavailable SHAYLA, JULIA Attending Unavailable SHAYLA, JULIA Consulting Unavailable SHAYLA, JULIA Primary Care Unavailable JANINE, DR CHARLES Watkins Attending Unavailabl e JANINE, DR CHARLES Watkins Consulting Unavailabl e JANINE, DR CHARLES Watkins Admitting Unavailabl e SHAYLA, JULIA Primary Care Unavailable [place], DR SAMMI Cortez Consulting Unavailable QUINCY ., SUSANA BLEDSOE Consulting Unavailabl e NEWVANDANA, IVAN Consulting Unavailable SHAYLA, JULIA Admitting Unavailable SHAYLA, JULIA Attending Unavailable SHAYLA, JULIA Consulting Unavailable SHAYLA, JULIA Primary Care Unavailable SHAYLA, JULIA Admitting Unavailable SHAYLA, JULIA Attending Unavailable SHAYLA, JULIA Consulting Unavailable SHAYLA, JULIA Primary Care Unavailable LATIA SEBASTIAN Consulting Unavailable ZAYDA ChenC Julia Weiss Primary Care Provider LAURO Berman Attending Provider LAURO Berman Referring Provider CHELO BERMAN Referring Unavailabl e SHAYLA, JULIA S Primary Care Unavailable DO Dario Garcia Attending Provider [phone] Unavailable Primary Care Provider Unavailabl e Kiae, Tasneem N Admitting Unavailable SaffleTasneem N Attending Unavailable Rosa M Andersen Primary Care Unavailable Shayla, Julia Isela Primary Care Unavailable ViscTiburcio campbell Admitting Unavailable Tiburcio Bass Attending Unavailable Dario Garcia Admitting Unavailable Dario Garcia Attending Unavailable Shayla, Julia Isela Primary Care Unavailable Dario Garcia Admitting Unavailable Dario Garcia Attending Unavailable Shayla, Julia Isela Primary Care Unavailable Shayla, Julia Isela Primary Care Unavailable Chelo Berman Admitting Unavailable Chelo Berman Attending Unavailable Chelo Berman Referring Unavailable Shayla, Julia Isela Primary Care Unavailable Dario Garcia Admitting Unavailable Dario Garcia Attending Unavailable Dario Garcia Admitting Unavailable Dario Garcia Attending Unavailable Shayla, Julia Isela Primary Care Unavailable Shayla, Julia Isela Imelda Primary Care Unav ailable Chelo Berman Attending Unavailable Chelo Berman Admitting Unavailable Unknown 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, Provider Primary Care Provide r Unavailable UNKNOWN, PROVIDER Primary Care Unavailable BHAVIK STANLEY Referring Unavail able UNKNOWN, PROVIDER Primary Care Unavailable VERRILLBHAVIK ANDREE Referring Unavail able UNKNOWN, PROVIDER Primary Care Unavailable VERRILL, BHAVIK ANDREE Referring Unavail able VERRILL, BHAVIK ANDREE Referring Unavail able UNKNOWN, PROVIDER Primary Care Unavailable VERRILL, BHAVIK ANDREE Referring Unavail able UNKNOWN, PROVIDER Primary Care Unavailable KEVIN HOLLOWAY Referring Unavailable KEVIN HOLLOWAY Referring Unavailable KEVIN HOLLOWAY Referring Unavailable CHELO BERMAN Referring Unavailabl e SHAYLA, JULIA S Primary Care Unavailable SHAYLA, JULIA S Referring Unavailable SHAYLA, JULIA S Primary Care Unavailable SHAYLA, JULIA S Referring Unavailable SHAYLA, JULIA S Primary Care Unavailable ALDO PURVIS Attending Unavailable DARIO GARCIA Referring Unavailable KEVIN HOLLOWAY Attending Unavailable TO VYAS Referring Unavailabl e ONTANEDA, KEVIN Attending Unavailable KLAUS STEVENSON Referring Unavailable KLAUS STEVENSON Attending Unavailable KLAUS STEVENSON Admitting Unavailable NEERU SIFUENTES Attending Unavailable KEVIN HOLLOWAY Referring Unavailable TO VYAS Referring UnavailKEVIN Kingsley Referring Unavailable AMAURI CALHOUN Attending Unavailable KEVIN HOLLOWAY Attending Unavailable DARIO GARCIA Referring Unavailable TO VYAS Referring UnavailVANNESSA Lugo Attending Unavailable SHANNON MARSH Attending Unavailable DARIO GARCIA Attending Unavailable MARY WILKS Attending Unavailable MARY WILKS Attending Unavailable Allergies Allergy Classification Reported Allergen(s) Allergy Type Date of Onset Reaction(s) Facility (8 sources) Coconut extract; Translations: [coconut] Drug Allergy 10-09-2022 [facility] Medications Current Medications Medication Drug Class(es) Dates Sig (Normalized) Sig (Original) baclofen 10 mg oral tablet (20 sources) gamma-Aminobutyri c Acid-ergic Agonist Start: 11-23-2023 End: 03-28-2024 take 1 tablet by mouth three times daily baclofen 10 mg tablet Take 1 tablet by mouth three times a day. 90 tablet 12/29/2023 03/28/2024 Active Start: 09-27-2023 End: 12-26-2023 take 1 tablet by mouth three times daily baclofen 5 mg tablet Take 1 tablet by mouth three times a day. 90 tablet 2 09/27/2023 11/23/2023 Discontinued Start: 09-27-2023 End: 10-28-2023 take 2.5 mg enteral route every twelve hours as needed baclofen 5 mg tablet 0.5 tablets by ORAL/FEEDING TUBE route two times a day as needed. 0 09/27/2023 10/28/2023 Discontinued docusate sodium 100 mg oral capsule (2 sources) Start: 04-07-2023 take 100 mg by mouth once daily at bedtime Docusate Sodium Active 100 MG PO Daily at bedtime April 07, 2023 1:00am HYDROmorphone hydrochloride 2 mg oral tablet (2 sources) Opioid Agonist Start: 04-07-2023 take 1 tablet by mouth every six hours Hydromorphone (Dilaudid) 2 mg tablet Active 2 MG PO Q6H 7 April 07, 2023 hydrOXYzine hydrochloride 50 mg oral tablet (13 sources) Antihistamine Start: 12-19-2023 End: 01-05-2024 take 1 tablet by mouth once daily as needed for anxiety hydrOXYzine HCl (ATARAX) 50 mg tablet Take 1 tablet by mouth once daily as needed for anxiety for up to 15 days. 15 tablet 0 12/21/2023 01/05/2024 Active Start: 11-17-2023 End: 12-17-2023 take 1 tablet by mouth once daily as needed for anxiety hydrOXYzine HCl (ATARAX) 50 mg tablet Take 1 tablet by mouth once daily as needed for anxiety. 30 tablet 0 11/17/2023 12/17/2023 Active End: 09-20-2023 take 1 capsule by mouth twice daily hydrOXYzine pamoate (VISTARIL) 50 mg capsule Take 50 mg by mouth twice daily. 0 09/20/2023 Discontinued ibuprofen 600 mg oral tablet (12 sources) Nonsteroidal Anti-inflammatory Drug Start: 04-07-2023 take 600 mg by mouth every six hours Ibuprofen Active 600 MG PO Q6H 60 April 07, 2023 1:00am Start: 11-09-2018 End: 04-03-2020 take 800 mg by mouth three times daily Ibuprofen Discontinued 800 MG PO Three times daily November 13, 2018 12:00am April 03, 2020 11:45pm Start: 05-27-2017 End: 09-20-2023 take 1 tablet by mouth every six hours as needed ibuprofen (MOTRIN) 800 mg tablet Take 1 tablet by mouth every 6 hours as needed for Pain or Fever. 21 tablet 0 05/27/2017 09/20/2023 Discontinued iv contrast (will be provide d with radiology test) (20 sources) Start: 12-01-2023 iv contrast (w ill be provided with radiology test) Indications: Demyelinating disease of central nervous system (HCC) MRI CSP Inject, intravenously, once for 1 dose. No IV access, insert saline lock prior to the beginning of sedation, infusion, injection of imaging exam. Discontinue saline lock post exam. If Pt. has a central line or IVAD, may access for administration according to line specific nursing protocol. Once exam is complete flush line and de-access according to line specific nursing protocol in the MR contrast administration guidelines link. 1 Each 12/01/2023 Active Start: 12-01-2023 inject 1 dose intravenously on ce iv contrast (will be provided with radiology test) Indications: Demyelinating disease of central nervous system (HCC) MRI Brain Inject, intravenously, once for 1 dose.No IV access, insert saline lock prior to beginning of sedation, infusion, injection of imaging exam.Discontinue saline lock post exam. If Pt. has a central line or IVAD, may access for administration according to line specific nursing protocol.Once exam is complete flush line and de-access according to line specific nursing protocol in the MR contrast administration guidelines link 1 Each 12/01/2023 Active Start: 12-01-2023 inject 1 dose intravenously on ce iv contrast (will be provided with radiology test) Indications: Demyelinating disease of central nervous system (HCC) MRI TSP Inject, intravenously, once for 1 dose. No IV access, insert saline lock prior to the beginning of sedation, infusion, injection of imaging exam. Discontinue saline lock post exam. If Pt. has a central line or IVAD, may access for administration according to line specific nursing protocol. Once exam is complete flush line and de-access according to line specific nursing protocol in the MR contrast administration guidelines link. 1 Each 12/01/2023 Active Start: 12-01-2023 iv contrast (w ill be provided with radiology test) Indications: Demyelinating disease of central nervous system (HCC) MRI CSP Inject, intravenously, once for 1 dose. No IV access, insert saline lock prior to the beginning of sedation, infusion, injection of imaging exam. Discontinue saline lock post exam. If Pt. has a central line or IVAD, may access for administration according to line specific nursing protocol. Once exam is complete flush line and de-access according to line specific nursing protocol in the MR contrast administration guidelines link. 1 Each 0 12/01/2023 Active Start: 12-01-2023 inject 1 dose intravenously on ce iv contrast (will be provided with radiology test) Indications: Demyelinating disease of central nervous system (HCC) MRI TSP Inject, intravenously, once for 1 dose. No IV access, insert saline lock prior to the beginning of sedation, infusion, injection of imaging exam. Discontinue saline lock post exam. If Pt. has a central line or IVAD, may access for administration according to line specific nursing protocol. Once exam is complete flush line and de-access according to line specific nursing protocol in the MR contrast administration guidelines link. 1 Each 0 12/01/2023 Active Start: 12-01-2023 inject 1 dose intravenously on ce iv contrast (will be provided with radiology test) Indications: Demyelinating disease of central nervous system (HCC) MRI Brain Inject, intravenously, once for 1 dose.No IV access, insert saline lock prior to beginning of sedation, infusion, injection of imaging exam.Discontinue saline lock post exam. If Pt. has a central line or IVAD, may access for administration according to line specific nursing protocol.Once exam is complete flush line and de-access according to line specific nursing protocol in the MR contrast administration guidelines link 1 Each 0 12/01/2023 Active Start: 10-04-2023 End: 10-05-2023 inject 1 dose intravenously once iv contrast (will be provided with radiology test) MRI Brain Inject, intravenously, once for 1 dose.No IV access, insert saline lock prior to beginning of sedation, infusion, injection of imaging exam.Discontinue saline lock post exam. If Pt. has a central line or IVAD, may access for administration according to line specific nursing protocol.Once exam is complete flush line and de-access according to line specific nursing protocol in the MR contrast administration guidelines link 1 Each 0 10/04/2023 10/05/2023 Active Start: 10-04-2023 End: 10-05-2023 iv contrast (will be provide d with radiology test) MRI CSP Inject, intravenously, once for 1 dose. No IV access, insert saline lock prior to the beginning of sedation, infusion, injection of imaging exam. Discontinue saline lock post exam. If Pt. has a central line or IVAD, may access for administration according to line specific nursing protocol. Once exam is complete flush line and de-access according to line specific nursing protocol in the MR contrast administration guidelines link. 1 Each 0 10/04/2023 10/05/2023 Active Start: 10-04-2023 End: 10-05-2023 inject 1 dose intravenously once iv contrast (will be provided with radiology test) MRI TSP Inject, intravenously, once for 1 dose. No IV access, insert saline lock prior to the beginning of sedation, infusion, injection of imaging exam. Discontinue saline lock post exam. If Pt. has a central line or IVAD, may access for administration according to line specific nursing protocol. Once exam is complete flush line and de-access according to line specific nursing protocol in the MR contrast administration guidelines link. 1 Each 0 10/04/2023 10/05/2023 Active Start: 09-20-2023 End: 09-20-2023 iv contrast (will be provide d with radiology test) CT Chest ABD/PEL-Inject, intravenously, once for 1 dose.No IV access, insert saline lock prior to the beginning of sedation, infusion, injection of imaging exam. Discontinue saline lock post exam. If Pt. has a central line or IVAD, may access for administration according to line specific nursing protocol. Once exam is complete flush line and de-access according to line specific nursing protocol in the CT contrast administration guidelines link. 1 Each 0 09/20/2023 09/20/2023 Discontinued (Course of therapy completed) lisdexamfetamine dimesylate 30 mg oral capsule (20 sources) Central Nervous System Stimulant Start: 08-12-2023 take 1 capsule by mouth once daily VYVANSE 30 mg capsule Take 1 capsule by mouth once daily. 08/12/2023 Active metoclopramide 5 mg oral tablet (2 sources) Dopamine-2 Receptor Antagonist Start: 04-06-2023 Metoclopramide Hcl (Reglan) 5 mg Tablet Active MG TABLET April 06, 2023 1:00am nitrofurantoin, macrocrystals 25 mg / nitrofurantoin, monohydrate 75 mg oral capsule (3 sources) Nitrofuran Antibacterial Start: 12-15-2023 End: 12-26-2023 take 1 capsule by mouth twice daily nitrofurantoin monohydrate and macrocrystal (MACROBID) 100 mg capsule Take 1 capsule by mouth two times a day for 5 days. 10 capsule 0 12/21/2023 12/26/2023 Active nortriptyline 10 mg oral capsule (20 sources) Tricyclic Antidepressant Start: 11-07-2023 End: 05-13-2024 take 2 capsules by mouth twice daily nortriptyline (PAMELOR) 10 mg capsule Take 2 capsules by mouth two times a day. 120 capsule 2 02/13/2024 05/13/2024 Active Start: 09-27-2023 End: 11-07-2023 take 2 capsules by mouth once daily at bedtime nortriptyline (PAMELOR) 10 mg capsule Take 2 capsules by mouth daily at bedtime. 0 09/27/2023 11/07/2023 Discontinued ocrelizumab (OCREVUS INTRAVE NOUS) (9 sources) ocrelizumab (OCR EVUS INTRAVENOUS) Inject intravenously. Active ocrelizumab (OCR EVUS INTRAVENOUS) Inject intravenously. 0 Active pregabalin 50 mg oral capsul e (20 sources) Start: 10-28-2023 End: 04-19-2024 pregabalin (LYRICA) 50 mg ca psule Indications: Multiple sclerosis (HCC) Please take 150 mg (3 capsules) in the morning, 100 mg (2 capsules) in the afternoon, and 150 mg (3 capsules) at bedtime. 240 capsule 5 10/28/2023 04/19/2024 Active Start: 09-27-2023 End: 12-26-2023 take 1 capsule by mouth twice daily pregabalin (LYRICA) 150 mg capsule Indications: Transverse myelitis (HCC) Take 1 capsule by mouth twice daily for 90 days. 60 capsule 2 09/27/2023 10/28/2023 Discontinued (Course of therapy completed) End: 10-28-2023 pregabalin (LYRICA) 100 mg c apsule Take 100 mg by mouth once daily. Patient taking total of 150 am, 100 mg afternoon, and 150 mg at bedtime 0 10/28/2023 Discontinued (Course of therapy completed) Nkzrtezv-Okp-Fu-Fa (2 sources) Start: 04-06-2023 take 1 tablet by mouth once Tlqajkqj-Iyp-Yw-Fa Active TAB PO April 06, 2023 1:00am Completed/Discontinued Medications Medication Drug Class(es) Dates Sig (Normalized) Sig (Original) acetaminophen 500 mg oral tablet (4 sources) Start: 12-20-2023 End: 12-20-2023 acetaminophen 1,000 mg tab(s) (TYLENOL) Start: 12-06-2023 End: 12-06-2023 acetaminophen 1,000 mg tab(s ) (TYLENOL) Start: 04-07-2023 take 1000 mg by mout h every six hours Acetaminophen Active 1000 MG PO Q6H 60 April 07, 2023 1:00am acetaminophen 325 mg / HYDROcodone bitartrate 5 mg oral tablet (8 sources) Opioid Agonist Start: 02-12-2017 End: 05-18-2018 take 1 tablet by mouth every six hours Hydrocodone-Acetaminophen (Pomona) 5-325 mg tablet Discontinued 1 TAB PO Q6H January 21, 2018 May 18, 2018 7:47pm cephalexin 500 mg oral capsule (4 sources) Cephalosporin Antibacterial Start: 02-06-2017 End: 02-11-2017 take 1 g by mouth twice daily Cephalexin (Keflex) 500 mg capsule Discontinued 1 GM PO Twice daily 17 12February 06, 2017 12:00am February 11, 2017 10:02pm cholecalciferol 0.025 mg oral tablet (15 sources) Vitamin D Start: 09-27-2023 End: 09-26-2024 take 1 tablet by mouth once daily cholecalciferol (VITAMIN D3) 1,000 unit tab tablet 1 tablet by ORAL/FEEDING TUBE route once daily. 30 tablet 11 09/27/2023 10/28/2023 Discontinued cloNIDine hydrochloride 0.3 mg oral tablet (4 sources) Central alpha-2 Adrenergic Agonist Start: 02-06-2017 End: 01-21-2018 take 0.3 mg by mouth once daily Clonidine Hcl Discontinued 0.3 MG PO Daily February 06, 2017 12:00am January 21, 2018 12:46pm dicyclomine hydrochloride 20 mg oral tablet (4 sources) Anticholinergic Start: 11-09-2018 End: 11-13-2018 take 20 mg by mouth three times daily Dicyclomine Discontinued 20 MG PO Three times daily November 09, 2018 12:00am November 13, 2018 12:55am diphenhydrAMINE hydrochloride 25 mg oral capsule (3 sources) Histamine-1 Receptor Antagonist Start: 12-20-2023 End: 12-20-2023 diphenhydrAMINE 50 mg capsule (BENADRYL) Start: 12-06-2023 End: 12-06-2023 diphenhydrAMINE 50 mg capsul e (BENADRYL) Start: 12-06-2023 End: 12-06-2023 diphenhydrAMINE 50 mg inject ion (BENADRYL) doxycycline hyclate 100 mg oral capsule (4 sources) Tetracycline-class Drug Start: 03-19-2021 End: 06-28-2021 take 100 mg by mouth twice daily Doxycycline Hyclate Discontinued 100 MG PO Twice daily 14 March 19, 2021 12:00am June 28, 2021 1:44pm enteric contrast (will be provided with radiology test) (1 source) Start: 09-20-2023 End: 09-20-2023 enteric contrast (will be provided with radiology test) For CT CHESTABD/PEL W IVCON Routine order Administer, As Directed One Time Only, via Oral, Rectal, both Oral and Rectal, Enteric Tube, Stoma or Indwelling Catheter, Enteric Contrast as designated per enteric contrast guidelines 1 Each 0 09/20/2023 09/20/2023 Discontinued (Course of therapy completed) escitalopram 20 mg oral tablet (8 sources) Serotonin Reuptake Inhibitor Start: 01-30-2021 End: 03-19-2021 take 20 mg by mouth once daily Escitalopram Oxalate Discontinued 20 MG PO Daily January 30, 2021 12:00am March 19, 2021 2:13pm Start: 04-03-2020 End: 01-30-2021 take 2 tablets by mouth once daily Escitalopram Oxalate (Lexapro) 10 mg Tablet Discontinued 20 MG PO Daily April 03, 2020 1:00am January 30, 2021 5:49pm ethinyl estradiol 0.035 mg / norethindrone 1 mg oral tablet (4 sources) Estrogen Start: 01-21-2018 End: 05-18-2018 Norethindrone-Ethin Estradiol (Ortho-Novum) 1-35 mg-mcg tablet Discontinued 1 TAB PO Daily 84 January 21, 2018 12:00am May 18, 2018 7:47pm Take 3 pills today, 2 tomorrow, then 1 each day until a week after the bleeding stops. Stop then for 5 days before starting a new pack of pills. gabapentin 100 mg oral capsule (1 source) Anti-epileptic Agent Start: 10-17-2022 End: 09-20-2023 take 3 capsules by mouth three times daily gabapentin (NEURONTIN) 100 mg capsule Take 300 mg by mouth three times a day. 0 10/17/2022 09/20/2023 Discontinued glipiZIDE 2.5 mg / metFORMIN hydrochloride 250 mg oral tablet (2 sources) Biguanide, Sulfonylurea End: 09-20-2023 take 1 tablet by mouth twice daily before mealtime glipiZIDE-metFORMIN (METAGLIP) 2.5-250 mg per tablet Take 1 tablet by mouth twice daily before meals. 0 09/20/2023 Discontinued hydrocortisone 100 mg injection (1 source) Corticosteroid Start: 12-06-2023 End: 12-06-2023 hydrocortisone sodium succinate (PF) 100 mg injection (Solu-CORTEF) LORazepam 0.5 mg oral tablet (8 sources) Benzodiazepine Start: 10-24-2023 End: 11-23-2023 LORazepam (ATIVAN) 0.5 mg Indications: Anxiety Take 1 tablet by mouth once daily as needed (For MRI anxiety) for up to 1 dose. Please take 30-60 minutes prior to MRI. Please do not drive on the day of taking this medication. 1 tablet 0 10/24/2023 10/28/2023 Discontinued meclofenamate 100 mg oral capsule (8 sources) Start: 05-18-2018 End: 09-22-2018 take 100 mg by mouth four times daily Meclofenamate Discontinued 100 MG PO Four times daily May 18, 2018 1:00am September 22, 2018 10:02am Start: 01-21-2018 End: 05-18-2018 take 100 mg by mouth three times daily Meclofenamate Discontinued 100 MG PO Three times daily January 21, 2018 3:41pm May 18, 2018 7:47pm medroxyPROGESTERone acetate 10 mg oral tablet (4 sources) Progestin Start: 02-06-2017 End: 02-16-2017 take 1 tablet by mouth once daily Medroxyprogesterone (Provera) 10 mg tablet Discontinued 10 MG PO Daily 10 February 06, 2017 12:00am February 16, 2017 12:04am mefenamic acid 250 mg oral capsule (4 sources) Nonsteroidal Anti-inflammatory Drug Start: 02-06-2017 End: 02-13-2017 take 250 mg by mouth every six hours at mealtime Mefenamic Acid Discontinued 250 MG PO Q6H 28 February 06, 2017 11:08pm February 13, 2017 12:02am administer with food or milk metFORMIN hydrochloride 500 mg oral tablet (4 sources) Biguanide Start: 02-06-2017 End: 05-18-2018 take 500 mg by mouth once daily Metformin Discontinued 500 MG PO Daily February 06, 2017 12:00am May 18, 2018 7:47pm methocarbamol 500 mg oral tablet (1 source) Muscle Relaxant Start: 09-08-2023 take 1 tablet by mouth twice daily methocarbamol (ROBAXIN) 500 mg tablet Take 1 tablet by mouth two times a day. 0 09/08/2023 Suspended methylPREDNISolone 125 mg injection (6 sources) Corticosteroid Start: 12-20-2023 End: 12-20-2023 methylPREDNISolone sod succinate(PF) 100 mg injection (SOLU-Medrol) Start: 12-06-2023 End: 12-06-2023 methylPREDNISolone sod succi chata(PF) 100 mg injection (SOLU-Medrol) Start: 10-09-2022 End: 04-06-2023 take 1 tablet by mouth once Methylprednisolone (Medrol (Bunny)) 4 mg tablets,dose pack Discontinued 0 PO .COMPLEX October 09, 2022 12:00am April 06, 2023 5:10pm orally per package directions naproxen 500 mg oral tablet (8 sources) Nonsteroidal Anti-inflammatory Drug Start: 06-28-2021 End: 04-06-2023 take 500 mg by mouth twice daily Naproxen Discontinued 500 MG PO Twice daily June 28, 2021 1:00am April 06, 2023 5:10pm Start: 09-22-2018 End: 10-28-2018 take 500 mg by mouth twice daily at mealtime Naproxen Discontinued 500 MG PO Twice daily September 22, 2018 12:00am October 28, 2018 8:16pm administer with food or milk 10 ml ocrelizumab 30 mg/ml injection (2 sources) Start: 12-20-2023 End: 12-20-2023 ocrelizumab (OCREVUS) in NaC l 0.9% Vial-Bag 300 mg 250 mL Start: 12-06-2023 End: 12-06-2023 ocrelizumab (OCREVUS) in NaC l 0.9% Vial-Mate 300 mg 250 mL ondansetron 4 mg oral tablet (12 sources) Serotonin-3 Receptor Antagonist Start: 06-28-2021 End: 04-06-2023 take 4 mg by mouth every eight hours Ondansetron Hcl Discontinued 4 MG PO Q8H 9 3 June 28, 2021 1:00am April 06, 2023 5:10pm Start: 04-04-2020 End: 09-27-2020 take 4 mg by mouth once daily Ondansetron Discontinued 4 MG PO Daily 7 April 04, 2020 1:00am September 27, 2020 10:04am Start: 01-21-2018 End: 05-18-2018 take 1 tablet by mouth every eight hours Ondansetron (Zofran Odt) 4 mg tablet,disintegrating Discontinued 4 MG PO Q8H January 21, 2018 12:00am May 18, 2018 7:47pm risperiDONE 1 mg oral tablet (6 sources) Atypical Antipsychotic Start: 02-06-2017 End: 01-21-2018 take 1 tablet by mouth once daily Risperidone (Risperdal) 1 mg Tablet Discontinued 1 MG PO Daily February 06, 2017 12:00am January 21, 2018 12:46pm End: 09-20-2023 take 1 tablet by mouth once daily at bedtime risperiDONE (RISPERDAL) 0.25 mg tablet Take 0.25 mg by mouth daily at bedtime. 0 09/20/2023 Discontinued traZODone hydrochloride 100 mg oral tablet (2 sources) Serotonin Reuptake Inhibitor End: 09-20-2023 take 1 tablet by mouth once daily at bedtime traZODone (DESYREL) 100 mg tablet Take 100 mg by mouth daily at bedtime. 0 09/20/2023 Discontinued Problems Active Problems Problem Classification Problem Date Documented Date Episodic/Chronic Abdominal pain (5 sources) Generalized abdominal pain; Translations: [Abdominal pain] Onset: 05-27-2017 11-09-2018 Episodic Anxiety disorders (2 sources) Anxiety; Translations: [Anxiety disorder, unspecified] 10-24-2023 Chronic Attention-deficit, conduct, and disruptive behavior disorders (1 source) Attention-deficit hyperactivity disorder, unspecified type; Translations: [ADHD UNSPECIFIED TYPE] Onset: 10-07-2022 Chronic Attention-deficit, conduct, and disruptive behavior disorders (20 sources) Attention deficit hyperactivity disorder; Translations: [Attention-deficit hyperactivity disorder, unspecified type] Onset: 09-23-2023 09-23-2023 Chronic Chronic obstructive pulmonary disease and bronchiectasis (4 sources) Bronchitis; Translations: [Bronchitis, not specified as acute or chronic] 09-27-2020 Episodic Diabetes mellitus without complication (20 sources) Diabetes mellitus type 2 without retinopathy; Translations: [Type 2 diabetes mellitus without complications] Onset: 09-11-2015 09-11-2015 Chronic Encephalitis (except that caused by tuberculosis or sexually transmitted disease) (1 source) Myelitis; Translations: [Myelitis, unspecified] 10-28-2023 Episodic Essential hypertension (2 sources) Essential (primary) hypertension; Translations: [Essential (primary) hypertension] Onset: 09-28-2023 Chronic Genitourinary symptoms and ill-defined conditions (4 sources) Delay when starting to pass urine; Translations: [Hesitancy of micturition] Onset: 01-25-2024 09-20-2023 Episodic Headache; including migraine (1 source) Headache; including migraine; Translations: [HEADACHE UNSPECIFIED] Onset: 10-07-2022 Immunizations and screening for infectious disease (4 sources) At risk of sexually transmitted infection ; Translations: [Contact with and (suspected) exposure to infections with a predominantly sexual mode of transmission] 03-19-2021 Episodic Malaise and fatigue (1 source) Weakness; Translations: [Weakness] Onset: 10-21-2023 Episodic Menstrual disorders (4 sources) Dysmenorrhea; Translations: [Dysmenorrhea, unspecified] 02-12-2017 Chronic Mood disorders (1 source) Depressive disorder; Translations: [Depression, unspecified depression type] 01-24-2024 Chronic Multiple sclerosis (20 sources) Multiple sclerosis; Translations: [Multiple sclerosis] Onset: 10-28-2023 10-24-2023 Chronic Nausea and vomiting (4 sources) Nausea and vomiting; Translations: [Nausea with vomiting, unspecified] 04-04-2020 Episodic Other aftercare (1 source) Other fpc (current) drug therapy; Translations: [OTH [facility] CURRENT DRUG THERAPY] Onset: 10-07-2022 Episodic Other bone disease and musculoskeletal deformities (1 source) Mass of musculoskeletal structure; Translations: [Other specified disorders of bone, other site] 10-18-2023 Episodic Other connective tissue disease (1 source) Muscle weakness (generalized); Translations: [Muscle weakness (generalized)] Onset: 10-21-2023 Episodic Other connective tissue disease (1 source) Other symptoms and signs involving the nervous system; Translations: [Other symptoms and signs involving the nervous system] Onset: 10-21-2023 Episodic Other eye disorders (20 sources) Bilateral vitreous floaters; Translations: [Other vitreous opacities, bilateral] Onset: 09-11-2015 09-11-2015 Chronic Other female genital disorders (1 source) Abnormal uterine and vaginal bleeding, unspecified; Translations: [Abnormal uterine and vaginal bleeding, unspecified] Onset: 05-27-2017 Chronic Other female genital disorders (4 sources) Abnormal uterine bleeding; Translations: [Other specified abnormal uterine and vaginal bleeding] 06-28-2021 Chronic Other nervous system disorders (2 sources) Spinal cord disease; Translations: [Disease of spinal cord, unspecified] 09-20-2023 Chronic Other nervous system disorders (4 sources) Disease of spinal cord, unspecified; Translations: [Unspecified disease of spinal cord] Onset: 10-24-2023 09-20-2023 Chronic Other nervous system disorders (5 sources) Demyelinating disease of central nervous system; Translations: [Demyelinating disease of central nervous system, unspecified] 10-04-2023 Chronic Other nervous system disorders (1 source) Demyelinating disease of central nervous system, unspecified; Translations: [Demyelinating disease of central nervous system (HCC)] Onset: 10-25-2023 Chronic Other nervous system disorders (1 source) Chronic pain; Translations: [Other chronic pain] 10-28-2023 Chronic Other nervous system disorders (4 sources) Numbness and tingling sensation of skin; Translations: [Anesthesia of skin] 10-09-2022 Episodic Other nervous system disorders (5 sources) Paresthesia of skin; Translations: [PARESTHESIA OF SKIN] Onset: 10-07-2022 Episodic Other nervous system disorders (1 source) Noble's reflex positive; Translations: [Abnormal reflex] 10-25-2023 Episodic Other nervous system disorders (1 source) Other lack of coordination; Translations: [Other lack of coordination] Onset: 10-21-2023 Episodic Other nervous system disorders (1 source) Unsteadiness on feet; Translations: [Unsteadiness on feet] Onset: 10-21-2023 Episodic Other nervous system disorders (1 source) Paralytic gait; Translations: [Paralytic gait] Onset: 10-21-2023 Episodic Other nutritional; endocrine; and metabolic disorders (20 sources) Obese class II; Translations: [Obesity, unspecified] Onset: 09-23-2023 09-23-2023 Chronic Other screening for suspected conditions (not mental disorders or infectious disease) (2 sources) Abnormal findings on diagnostic imaging of other parts of musculoskeletal system; Translations: [Patient encounter status] Onset: 08-22-2023 01-25-2024 Episodic Ovarian cyst (4 sources) Cyst of ovary; Translations: [Unspecified ovarian cyst, unspecified side] 11-13-2018 Episodic Paralysis (1 source) Paraplegia; Translations: [Paraplegia, unspecified] 01-04-2024 Chronic Residual codes; unclassified (1 source) Pain, unspecified; Translations: [Pain, unspecified] Onset: 08-22-2023 Episodic Residual codes; unclassified (1 source) Other general symptoms and signs; Translations: [Other general symptoms and signs] Onset: 10-21-2023 Episodic Spondylosis; intervertebral disc disorders; other back problems (9 sources) Backache; Translations: [Dorsalgia, unspecified] Onset: 10-07-2022 11-13-2018 Episodic Spontaneous (4 sources) Complete miscarriage; Translations: [Complete or unspecified spontaneous without complication] 10-28-2018 Episodic Substance-related disorders (20 sources) Nicotine dependence; Translations: [Nicotine dependence, unspecified, uncomplicated] Onset: 09-21-2023 09-22-2023 Chronic Unclassified (1 source) Unknown / UNK(Unknown) Onset: 05-27-2017 Unclassified (3 sources) LOW BACK PAIN, UNSPECIFIED; Translations: [LOW BACK PAIN, UNSPECIFIED] Onset: 09-16-2022 Urinary tract infections (7 sources) Urinary tract infectious disease; Translations: [Urinary tract infection, site not specified] Onset: 01-25-2024 02-06-2017 Episodic Past or Other Problems Problem Classification Problem Date Documented Date Episodic/Chronic Administrative/social admission (20 sources) Impaired mobility; Translations: [Other reduced mobility] Onset: 09-23-2023 09-23-2023 Episodic Disorders of teeth and jaw (2 sources) Periapical abscess without sinus; Translations: [Periapical abscess without sinus] Onset: 05-27-2017 Episodic Early or threatened labor (3 sources) Premature labor; Translations: [ labor with delivery, unspecified trimester, not applicable or unspecified] Onset: 04-06-2023 05-04-2023 Episodic Other connective tissue disease (20 sources) Neuropathic pain; Translations: [Neuralgia and neuritis, unspecified] Onset: 09-23-2023 09-23-2023 Episodic Other connective tissue disease (1 source) Neuralgia and neuritis, unspecified; Translations: [Neuropathic pain] Onset: 09-23-2023 Episodic Other injuries and conditions due to external causes (20 sources) At risk for falls ; Translations: [History of falling] Onset: 09-23-2023 09-23-2023 Episodic Other nervous system disorders (5 sources) Anesthesia of skin; Translations: [ANESTHESIA OF SKIN] Onset: 10-09-2022 Episodic Other nervous system disorders (4 sources) 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; 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] Onset: 12-09-2022 Episodic Other nervous system disorders (20 sources) Transverse myelopathy syndrome; 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] Onset: 09-20-2023 09-20-2023 Episodic Other nervous system disorders (1 source) Ataxia, unspecified; Translations: [Ataxia, unspecified] Onset: 12-24-2022 Episodic Other and delivery including normal (1 source) Encounter for supervision of normal , unspecified, third trimester; Translations: [Encounter for supervision of normal , unspecified, third trimester] Onset: 04-06-2023 Episodic Residual codes; unclassified (20 sources) Finding of activity of daily living; Translations: [Other general symptoms and signs] Onset: 09-23-2023 09-23-2023 Episodic Syncope (20 sources) Vasovagal syncope; Translations: [Syncope and collapse] Onset: 09-23-2023 Resolved: 09-26-2023 09-26-2023 Episodic Unclassified (1 source) LOW BACK PAIN, UNSPECIFIED; Translations: [LOW BACK PAIN, UNSPECIFIED] Onset: 09-10-2022 Results Test Name Value Interpretation Reference Range Facility [facility] 01-25-2024 CNOV Office Visit (UROLMN ) -------- LADI BERNSTEIN ([id number]) 2000 F Date Time Provider Department 01/25/24 1:00 PM NEERU SIFUENTES During your visit today, we recorded the following information about you: Neeru Sifuentes APRN.CNP 01/25/2024 4:06 PM Signed Chief Complaint: urinary hesitancy HPI: Ladi Bernstein is a 23 year old female with history of ADHD, depression, endometriosis, multiple sclerosis (diagnosed October 2022) who presents for evaluation of urinary hesitancy and frequent UTI's. Reports having 2-3 UTI's in the past 5-6 months- she feels like UTI's seem to correlate with recent immunosuppression Rx for MS. Typical UTI symptoms include dysuria, increased urinary urgency/frequency, suprapubic discomfort. Of note, she is being treated with antibiotics locally based on symptoms- no cultures checked per patient. Has been taking an OTC cranberry supplement which seems to minimize symptoms No UTI symptoms today Also notes urinary hesitancy- ongoing for past 5-6 months. Denies episodes of acute retention. Other LUTS include urinary urgency and some dribbling. Will have to sit on the toilet longer- sometimes double voiding. No flank pain. Prior to current symptoms- denies any significant urologic history. No change in bowel habits MS symptoms include generalized weakness, numbness, muscle spasms, heat intolerance. States she is ambulatory, although slows down towards the end of the day- then has shuffled gait. Uses wheelchair only in certain situations. Does seated cardio work out routine. ANNEMARIE: Sometimes (daily) URGENCY: Yes UI: Yes PADS: No FREQUENCY: ~3 hours NOCTURIA: 0 per night STRAINING TO VOID: Yes EMPTIES COMPLETELY: No UTI: 3 past 12 months SEXUALLY ACTIVE: Yes Post-menopause: no Have you had a hysterectomy:NO Postmenopausal bleeding:Not applicable HEMATURIA HX: No GI: +hx of constipation improved with diet changes Do you have a history of any diagnosed back or Neurological problems:YES PSH: excision endometriosis; ; lap vlad; tonsillectomy LABS Creatinine Date Value Ref Range Status 11/03/2023 0.87 0.58 - 0.96 mg/dL Final 09/26/2023 0.77 0.58 - 0.96 mg/dL Final 09/25/2023 0.80 0.58 - 0.96 mg/dL Final 09/24/2023 0.87 0.58 - 0.96 mg/dL Final IMAGING CT ABD/PEL W IVCON 09/20/2023 IMPRESSION: No evidence of malignancy in the abdomen/pelvis. Kidneys: No mass, calculus or hydronephrosis. Probable parapelvic cysts in the upper pole of the left kidney. REVIEW OF SYSTEMS GENERAL:Negative for significant weight loss, fever, SEE HPI GENITOURINARY: See HPI The remainder of the ROS was negative. HISTORIES PAST MEDICAL HISTORY No date: ADHD (attention deficit hyperactivity disorder) No date: Depression No date: Endometriosis FAMILY HISTORY Problem Relation Age of Onset Diabetes Father Glaucoma Father Multiple Sclerosis No Family History SOCIAL HISTORY Social History Tobacco Use Smoking status: Former Current packs/day: 0.00 Average packs/day: 0.5 packs/day for 2.0 years (1.0 ttl pk-yrs) Types: Cigarettes Start date: 12/05/2019 Quit date: 12/04/2021 Years since quittin.1 Smokeless tobacco: Never Substance Use Topics Alcohol use: Yes Comment: occassionally Drug use: Yes Types: Marijuana Comment: everyday PHYSICAL EXAMINATION VITALS: LMP 10/23/2023 (Exact Date) GENERAL: alert, no distress, normal affect EYES: no icterus, no discharge, conjugate gaze RESPIRATORY: normal effort, regular rate, no audible wheeze ABDOMEN: soft, non-tender, non-distended GENITOURINARY: no flank tenderness EXTREMITIES: warm, no dependent edema, no malformations SKIN: no abnormal bruising, no rashes, no cyanosis NEUROLOGIC: no paralysis PVR: 36 cc Assessment (R39.11) Urinary hesitancy (primary encounter diagnosis) (N39.0) Frequent UTI 23 year old female with PMH of MS who presents for evaluation of urinary hesitancy and frequent UTI UA today is normal We discussed risk factors for recurrent UTI in females and rationale for lifestyle modifications/management including increased fluid intake (2-3 L/day), pre and post coital voiding if applicable, maintaining good bowel regimen, maintaining good hygiene practices (wipe front to back; wearing cotton underwear, avoiding tight fitting, non-breathable material), use of Probiotics and D-Mannose PVR today is 36 Discussed rationale for further evaluation with video UDS Plan -Lifestyle modifications as discussed -Recommend daily probiotics and D-Mannose for UTI prevention -Encourage she check urine culture at onset of UTI symptoms -Refer to Dr. Radha Barillas with video UDS scheduled prior Neeru Sifuentes APRN.MEEK ChatmanRyanAGATA 01/25/2024 1:29 PM Signed Post Void Residual done on patient with 36 cc residual volume remaining. MD notified. Ryan Frye (more content not included)... Normal [facility] URINALYSIS, REFLEX MICROSCOP ICon 01-25-2024 Bilirubin Ql (U) Negative Negative [facility] Clarity (Unsp spec) Clear Clear [facility] Color (U) Yellow Yellow [facility] Glucose Test strip (U) [Mass/Vol] Negative Negative [facility] Hemoglobin Ql (U) Negative Negative [facility] Interpretation and review of laboratory results Normal [facility] Ketones Ql (U) Negative Negative [facility] Leukocyte esterase Test strip Ql (U) Negative Negative [facility] Nitrite Ql (U) Negative Negative [facility] pH (U) 7.0 [pH] NINF - 8.5 [facility] Protein (U) [Mass/Vol] Negative Negative [facility] Specific gravity (U) [Rel density] 1.012 1.005 - 1.030 [facility] Urobilinogen Ql (U) 0.2 EU/dL 0.2-1.0 EU/dL [facility] This test was devlasto ped and its performance characteristics determined by [facility]'s [facility]wayne L[facility] [place] ([facility]). It has not been cleared or approved by the FDA. [facility] is regulated under CLIA as qualified to perform high-complexity testing. This test is used for clinical purposes. It should not be regarded as investigational or for research. [facility] Bilirubin Ql (U) Negative Normal Negative [facility] Comment on above: Order Comment: Speci men Type: URINE SPECIMENOrdering Facility: [facility] Address: [address] [place] [address] Performed By: #### L [id number] ####[facility] LABCLIA [id number] [address] [place] Clarity (Unsp spec) Clear Normal Clear [facility] Comment on above: Order Comment: Speci men Type: URINE SPECIMENOrdering Facility: [facility] Address: [address] [id number] Performed By: #### L [id number] ####[facility] LABCLIA [id number] [place] [address] [place] Color (U) Yellow Normal Yellow [facility] Comment on above: Order Comment: Speci men Type: URINE SPECIMENOrdering Facility: [facility] Address: [address] [place] [address] Performed By: #### L [id number] ####[facility] LABCLIA [id number] [place] [address] [place] Glucose Test strip (U) [Mass/Vol] Negative Normal Negative [facility] Comment on above: Order Comment: Speci men Type: URINE SPECIMENOrdering Facility: [facility] Address: [address] [place] [address] Performed By: #### L [id number] ####[facility] LABCLIA [id number] [place] [address] [place] Hemoglobin Ql (U) Negative Normal Negative [facility] Comment on above: Order Comment: Speci men Type: URINE SPECIMENOrdering Facility: [facility] Address: [address] [place] [address] Performed By: #### L [id number] ####[facility] LABCLIA [id number] [place] [address] [place] Ketones Ql (U) Negative Normal Negative [facility] Comment on above: Order Comment: Speci men Type: URINE SPECIMENOrdering Facility: [facility] Address: [address] [place], [place] [id number] Performed By: #### L [id number] ####[facility] LABCLIA [id number] [place] [address] [place] Leukocyte esterase Test strip Ql (U) Negative Normal Negative [facility] Comment on above: Order Comment: Speci men Type: URINE SPECIMENOrdering Facility: [facility] Address: [address] [place] [address] Performed By: #### L [id number] ####[facility] LABCLIA [id number] [place] [address] [place] Nitrite Ql (U) Negative Normal Negative [facility] Comment on above: Order Comment: Speci men Type: URINE SPECIMENOrdering Facility: [facility] Address: [address] [place] [address] Performed By: #### L [id number] ####[facility] LABCLIA [id number] [place] [address] [place] pH (U) 7.0 [pH] Normal <8.5 [facility] Comment on above: Order Comment: Speci men Type: URINE SPECIMENOrdering Facility: [facility] Address: [address] [place] [address] Performed By: #### L [id number] ####[facility] LABCLIA [id number] [place] [address] [place] Protein (U) [Mass/Vol] Negative Normal Negative [facility] Comment on above: Order Comment: Speci men Type: URINE SPECIMENOrdering Facility: [facility] Address: [address] [place] [address] Performed By: #### L [id number] ####[facility] LABCLIA [id number] [place] [address] [place] Specific gravity (U) [Rel density] 1.012 Normal 1.005-1.030 [facility] Comment on above: Order Comment: Speci men Type: URINE SPECIMENOrdering Facility: [facility] Address: [address] [place] [address] Performed By: #### L [id number] ####[facility] LABCLIA [id number] [place] [address] [place] Urobilinogen Ql (U) 0.2 EU/dL Normal 0.2-1.0 EU/dL [facility] Comment on above: Order Comment: Speci men Type: URINE SPECIMENOrdering Facility: [facility] Address: [address] [place] [address] Performed By: #### L [id number] ####[facility] LABCLIA [id number] [address] [place] CNPNon 01-07-2024 CNPN Telephone (NIQ) -------- LADI BERNSTEIN ([id number]) 2000 F Date Time Provider Department 01/07/24 LINA ORDOÑEZ During your visit today, we recorded the following information about you: Saravanan Callaway 01/07/2024 10:00 AM Signed Called to assist patient in scheduling pain, psychology, MRIs, and follow-up visit with Dr. Holloway (preferably a Tuesday afternoon and the same day as her MRI). LVM with phone number to call when ready to schedule Allergies As of Date: 01/07/2024 (No Known Allergies) Date Reviewed: 12/20/2023 Reviewed by: Vianney Muhammad, RN - Fully Assessed Reason for Visit: Appointment [[id number]] Cmt: Called to assist patient in scheduling pain, psychology, MRIs, and follow-up visit with Dr. Holloway (preferably a Tuesday afternoon and the same day as her MRI). LVM with phone number to call when ready to schedule Prescriptions as of 01/07/2024 - baclofen 10 mg tablet Take 1 tablet by mouth three times a day. - ocrelizumab (OCREVUS INTRAVENOUS) Inject intravenously. - iv contrast (will be provided with radiology test) MRI CSP Inject, intravenously, once for 1 dose. No IV access, insert saline lock prior to the beginning of sedation, infusion, injection of imaging exam. Discontinue saline lock post exam. If Pt. has a central line or IVAD, may access for administration according to line specific nursing protocol. Once exam is complete flush line and de-access according to line specific nursing protocol in the MR contrast administration guidelines link. - iv contrast (will be provided with radiology test) MRI TSP Inject, intravenously, once for 1 dose. No IV access, insert saline lock prior to the beginning of sedation, infusion, injection of imaging exam. Discontinue saline lock post exam. If Pt. has a central line or IVAD, may access for administration according to line specific nursing protocol. Once exam is complete flush line and de-access according to line specific nursing protocol in the MR contrast administration guidelines link. - iv contrast (will be provided with radiology test) MRI Brain Inject, intravenously, once for 1 dose.No IV access, insert saline lock prior to beginning of sedation, infusion, injection of imaging exam.Discontinue saline lock post exam. If Pt. has a central line or IVAD, may access for administration according to line specific nursing protocol.Once exam is complete flush line and de-access according to line specific nursing protocol in the MR contrast administration guidelines link - nortriptyline (PAMELOR) 10 mg capsule Take 2 capsules by mouth two times a day. - pregabalin (LYRICA) 50 mg capsule Please take 150 mg (3 capsules) in the morning, 100 mg (2 capsules) in the afternoon, and 150 mg (3 capsules) at bedtime. - VYVANSE 30 mg capsule Take 1 capsule by mouth once daily. - gabapentin (NEURONTIN) 100 mg capsule (Discontinued) Take 300 mg by mouth three times a day. 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] 10/28/2023 Encounter Status:Closed by SARAVANAN CALLAWAY on 01/07/24 Normal [facility] IMMUNOGLOBULIN Mike 4 IgG [Mass/Vol] 881 mg/dL 700 - 1600 mg/dL [facility] IMMUNOGLOBULIN Mon 4 IgM [Mass/Vol] 239 mg/dL High 40 - 230 mg/dL [facility] IgG SerPl-mCncon 12-06-2023 IgG [Mass/Vol] 881 mg/dL Normal 700-1600 [facility] Comment on above: Order Comment: Speci esha Type: BLOOD SPECIMEN [facility] Address: [address] [place] [address] Performed By: #### 3 4528-0 #### [facility] CLIA [id number] [address] [place] [address] [place] IgG [Mass/Vol]on 12-06-2023 Interpretation and review of laboratory results Normal [facility] IgM SerPl-mCncon 12-06-2023 IgM [Mass/Vol] 239 mg/dL High 40-230 [facility] Comment on above: Order Comment: Speci men Type: BLOOD SPECIMEN Ordering Facility: [facility] Address: [address] [place] [address] Performed By: #### 3 4528-0 #### [facility] CLIA [id number] [address] [place] [address] [place] IgM [Mass/Vol]on 12-06-2023 Interpretation and review of laboratory results Abnormal [facility] No Panel Informationon 12-05 [facility] BLOOD TB SCREENon 11-03-2023 M. tuberculosis tuberculin stim IFN-g Ql (Bld) Negative Normal [facility] Comment on above: Order Comment: Speci men Type: BLOOD SPECIMEN Ordering Facility: [facility] Address: [address] [place] [address] Performed By: #### 2 4362-6, #### [facility] CLIA [id number] [address] [place] [address] [place] MITOGEN MINUS NIL >9.96 Normal >=0.50 [facility] Comment on above: Order Comment: Allyni men Type: BLOOD SPECIMEN Ordering Facility: [facility] Address: [address] [place] [address] Performed By: #### 2 4362-6, #### [facility] CLIA [id number] [address] [place] [address] [place] [facility] TB GAMMA INTERPRETATION Infection with M. tuberculosis complex is unlikely. If latent tuberculosis infection is highly suspected, a negative result does not rule out the infection. Specimens from immunocompromised patients and those <5 years of age may show false negative results. In case of a contact investigation, please repeat 8-12 weeks after a known exposure. Normal [facility] Comment on above: Order Comment: Allyni esha Type: BLOOD SPECIMEN Ordering Facility: [facility] Address: [address] [place] [address] Performed By: #### 2 4362-6, #### [facility] CLIA [id number] [address] [place] [address] OF SUE TB NIL 0.04 IU/mL Normal <=8.00 [facility] Comment on above: Order Comment: Shannan balbuena Type: BLOOD SPECIMEN Ordering Facility: [facility] Address: [address] [place] [address] Performed By: #### 2 4362-6, #### [facility] CLIA [id number] [address] [place] [address] [place] TB1 AG MINUS NIL 0.01 IU/mL Normal <0.35 [facility] Comment on above: Order Comment: Speci men Type: BLOOD SPECIMEN Ordering Facility: [facility] Address: [address] [place] [address] Performed By: #### 2 4362-6, #### [facility] CLIA [id number] [address] [place] [address] [place] TB2 AG MINUS NIL 0.01 IU/mL Normal <0.35 [facility] Comment on above: Order Comment: Speci men Type: BLOOD SPECIMEN Ordering Facility: [facility] Address: [address] [place] [address] Performed By: #### 2 4362-6, #### [facility] CLIA [id number] [address] [place] [address] [place] CBC W Auto Differential pane l (Bld)on 11-03-2023 Basophils (Bld) [#/Vol] 0.03 10*3/uL Normal <0.11 [facility] Comment on above: Order Comment: Speci men Type: BLOOD SPECIMEN Ordering Facility: [facility] Address: [address] [place] [address] Performed By: #### 3 4528-0 #### [facility] CLIA [id number] [address] [place] [address] [place] Basophils/100 WBC (Bld) 0.5 % Normal [facility] Comment on above: Order Comment: Speci men Type: BLOOD SPECIMEN Ordering Facility: [facility] Address: [address] [place] [address] Performed By: #### 3 4528-0 #### [facility] CLIA [id number] [address] [place] [address] [place] Differential cell count method Nom (Bld) Auto Normal [facility] Comment on above: Order Comment: Speci men Type: BLOOD SPECIMEN Ordering Facility: [facility] Address: [address] [place] [address] Performed By: #### 3 4528-0 #### [facility] CLIA [id number] [address] [place] [address] [place] Eosinophils (Bld) [#/Vol] 0.10 10*3/uL Normal <0.46 [facility] Comment on above: Order Comment: Speci men Type: BLOOD SPECIMEN Ordering Facility: [facility] Address: [address] [place] [address] Performed By: #### 3 4528-0 #### [facility] CLIA [id number] [address] [place] [address] [place] Eosinophils/100 WBC (Bld) 1.5 % Normal [facility] Comment on above: Order Comment: Speci men Type: BLOOD SPECIMEN Ordering Facility: [facility] Address: [address] [place] [address] Performed By: #### 3 4528-0 #### [facility] CLIA [id number] [address] [place] [address] [place] Erythrocyte distribution width (RBC) [Ratio] 13.3 % Normal 11.5-15.0 [facility] Comment on above: Order Comment: Speci men Type: BLOOD SPECIMEN Ordering Facility: [facility] Address: [address] [place] [address] Performed By: #### 3 4528-0 #### [facility] CLIA [id number] [address] [place] [address] [place] Hematocrit (Bld) [Volume fraction] 38.9 % Normal 36.0-46.0 [facility] Comment on above: Order Comment: Speci men Type: BLOOD SPECIMEN Ordering Facility: [facility] Address: [address] [place] [address] Performed By: #### 3 4528-0 #### [facility] CLIA [id number] [address] [place] [address] [place] Hemoglobin (Bld) [Mass/Vol] 12.7 g/dL Normal 11.5-15.5 [facility] Comment on above: Order Comment: Speci men Type: BLOOD SPECIMEN Ordering Facility: [facility] Address: [address] [place] [address] Performed By: #### 3 4528-0 #### [facility] CLIA [id number] [address] [place] [address] [place] Immature granulocytes (Bld) [#/Vol] 10*3/uL Normal <0.10 [facility] Comment on above: Order Comment: Speci men Type: BLOOD SPECIMEN Ordering Facility: [facility] Address: [address] [place] [address] Performed By: #### 3 4528-0 #### [facility] CLIA [id number] [address] [place] [address] [place] Immature granulocytes/100 WBC (Bld) 0.2 % Normal [facility] Comment on above: Order Comment: Speci men Type: BLOOD SPECIMEN Ordering Facility: [facility] Address: [address] [place] [address] Performed By: #### 3 4528-0 #### [facility] CLIA [id number] [address] [place] [address] [place] Lymphocytes (Bld) [#/Vol] 2.27 10*3/uL Normal 1.00-4.00 [facility] Comment on above: Order Comment: Speci men Type: BLOOD SPECIMEN Ordering Facility: [facility] Address: [address] [place] [address] Performed By: #### 3 4528-0 #### [facility] CLIA [id number] [address] [place] [address] [place] Lymphocytes/100 WBC (Bld) 35.1 % Normal [facility] Comment on above: Order Comment: Speci men Type: BLOOD SPECIMEN Ordering Facility: [facility] Address: [address] [place] [address] Performed By: #### 3 4528-0 #### [facility] CLIA [id number] [address] [place] [address] [place] MCH (RBC) [Entitic mass] 27.9 pg Normal 26.0-34.0 [facility] Comment on above: Order Comment: Speci men Type: BLOOD SPECIMEN Ordering Facility: [facility] Address: [address] [place] [address] Performed By: #### 3 4528-0 #### [facility] CLIA [id number] [address] [place] [address] [place] MCHC (RBC) [Mass/Vol] 32.6 g/dL Normal 30.5-36.0 [facility] Comment on above: Order Comment: Speci men Type: BLOOD SPECIMEN Ordering Facility: [facility] Address: [address] [place] [address] Performed By: #### 3 4528-0 #### [facility] CLIA [id number] [address] [place] [address] [place] MCV (RBC) [Entitic vol] 85.5 fL Normal 80.0-100.0 [facility] Comment on above: Order Comment: Speci men Type: BLOOD SPECIMEN Ordering Facility: [facility] Address: [address] [place] [address] Performed By: #### 3 4528-0 #### [facility] CLIA [id number] [address] [place] [address] [place] Monocytes (Bld) [#/Vol] 0.40 10*3/uL Normal <0.87 [facility] Comment on above: Order Comment: Speci men Type: BLOOD SPECIMEN Ordering Facility: [facility] Address: [address] [place] [address] Performed By: #### 3 4528-0 #### [facility] CLIA [id number] [address] [place] [address] [place] Monocytes/100 WBC (Bld) 6.2 % Normal [facility] Comment on above: Order Comment: Speci men Type: BLOOD SPECIMEN Ordering Facility: [facility] Address: [address] [place] [address] Performed By: #### 3 4528-0 #### [facility] CLIA [id number] [address] [place] [address] [place] Neutrophils (Bld) [#/Vol] 3.65 10*3/uL Normal 1.45-7.50 [facility] Comment on above: Order Comment: Speci men Type: BLOOD SPECIMEN Ordering Facility: [facility] Address: [address] [place] [address] Performed By: #### 3 4528-0 #### [facility] CLIA [id number] [address] [place] [address] [place] Neutrophils/100 WBC (Bld) 56.5 % Normal [facility] Comment on above: Order Comment: Speci men Type: BLOOD SPECIMEN Ordering Facility: [facility] Address: [address] [place] [address] Performed By: #### 3 4528-0 #### [facility] CLIA [id number] [address] [place] [address] [place] Nucleated RBC (Bld) [#/Vol] 10*3/uL Normal <0.01 [facility] Comment on above: Order Comment: Speci men Type: BLOOD SPECIMEN Ordering Facility: [facility] Address: [address] [place] [address] Performed By: #### 3 4528-0 #### [facility] CLIA [id number] [address] [place] [address] [place] Nucleated RBC/100 WBC (Bld) [Ratio] 0.0 /100 WBC Normal [facility] Comment on above: Order Comment: Speci men Type: BLOOD SPECIMEN Ordering Facility: [facility] Address: [address] [place] [address] Performed By: #### 3 4528-0 #### [facility] CLIA [id number] [address] [place] [address] [place] Platelet mean volume (Bld) [Entitic vol] 9.9 fL Normal 9.0-12.7 [facility] Comment on above: Order Comment: Speci men Type: BLOOD SPECIMEN Ordering Facility: [facility] Address: [address] [place] [address] Performed By: #### 3 4528-0 #### [facility] CLIA [id number] [address] [place] [address] [place] Platelets (Bld) [#/Vol] 250 10*3/uL Normal 150-400 [facility] Comment on above: Order Comment: Speci men Type: BLOOD SPECIMEN Ordering Facility: [facility] Address: [address] [place] [address] Performed By: #### 3 4528-0 #### [facility] CLIA [id number] [address] [place] [address] [place] RBC (Bld) [#/Vol] 4.55 10*6/uL Normal 3.90-5.20 [facility] Comment on above: Order Comment: Speci men Type: BLOOD SPECIMEN Ordering Facility: [facility] Address: [address] [place] [address] Performed By: #### 3 4528-0 #### [facility] CLIA [id number] [address] [place] [address] [place] WBC (Bld) [#/Vol] 6.46 10*3/uL Normal 3.70-11.00 [facility] Comment on above: Order Comment: Speci men Type: BLOOD SPECIMEN Ordering Facility: [facility] Address: [address] [place] [address] Performed By: #### 3 4528-0 #### [facility] CLIA [id number] [address] [place] [address] [place] Comprehensive metabolic 2000 panelon 11-03-2023 Albumin [Mass/Vol] 4.5 g/dL Normal 3.9-4.9 [facility] Comment on above: Order Comment: Speci men Type: BLOOD SPECIMEN Ordering Facility: [facility] Address: [address] [place] [address] Performed By: #### 3 4528-0 #### [facility] CLIA [id number] [address] [place] [address] [place] ALP [Catalytic activity/Vol] 73 U/L Normal 34-123 [facility] Comment on above: Order Comment: Speci men Type: BLOOD SPECIMEN Ordering Facility: [facility] Address: [address] [place] [address] Performed By: #### 3 4528-0 #### [facility] CLIA [id number] [address] [place] [address] [place] ALT [Catalytic activity/Vol] 9 U/L Normal 7-38 [facility] Comment on above: Order Comment: Speci men Type: BLOOD SPECIMEN Ordering Facility: [facility] Address: [address] [place] [address] Performed By: #### 3 4528-0 #### [facility] CLIA [id number] [address] [place] [address] [place] Anion gap [Moles/Vol] 9 mmol/L Normal 8-15 [facility] Comment on above: Order Comment: Speci men Type: BLOOD SPECIMEN Ordering Facility: [facility] Address: [address] [place] [address] Performed By: #### 3 4528-0 #### [facility] CLIA [id number] [address] [place] [address] [place] AST [Catalytic activity/Vol] 12 U/L Low 13-35 [facility] Comment on above: Order Comment: Speci men Type: BLOOD SPECIMEN Ordering Facility: [facility] Address: [address] [place] [address] Performed By: #### 3 4528-0 #### [facility] CLIA [id number] [address] [place] [address] [place] Bilirubin [Mass/Vol] mg/dL Low 0.2-1.3 [facility] Comment on above: Order Comment: Speci men Type: BLOOD SPECIMEN Ordering Facility: [facility] Address: [address] [place] [address] Performed By: #### 3 4528-0 #### [facility] CLIA [id number] [address] [place] [address] [place] Calcium [Mass/Vol] 9.8 mg/dL Normal 8.5-10.2 [facility] Comment on above: Order Comment: Speci men Type: BLOOD SPECIMEN Ordering Facility: [facility] Address: [address] [place] [address] Performed By: #### 3 4528-0 #### [facility] CLIA [id number] [address] [place] [address] [place] Chloride [Moles/Vol] 104 mmol/L Normal 98-107 [facility] Comment on above: Order Comment: Speci men Type: BLOOD SPECIMEN Ordering Facility: [facility] Address: [address] [place] [address] Performed By: #### 3 4528-0 #### [facility] CLIA [id number] [address] [place] [address] [place] CO2 [Moles/Vol] 27 mmol/L Normal 22-30 [facility] Comment on above: Order Comment: Speci men Type: BLOOD SPECIMEN Ordering Facility: [facility] Address: [address] [place] [address] Performed By: #### 3 4528-0 #### [facility] CLIA [id number] [address] [place] [address] [place] Creatinine [Mass/Vol] 0.87 mg/dL Normal 0.58-0.96 [facility] Comment on above: Order Comment: Shannan balbuena Type: BLOOD SPECIMEN Ordering Facility: [facility] Address: [address] [place] [address] Performed By: #### 3 4528-0 #### [facility] CLIA [id number] [address] [place] [address] [place] Creatinine and Glomerular filtration rate.predicted panel (S/P/Bld) 95 mL/min/1.73m??? Normal >=60 [facility] Comment on above: Order Comment: Shannan balbuena Type: BLOOD SPECIMEN Ordering Facility: [facility] Address: [address] [place] [address] Result Comment: Gisselle mated Glomerular Filtration Rate (eGFR) is calculated using the 2020 CKD-EPI creatinine equation. This equation utilizes serum creatinine, sex, and age as parameters. The creatinine assay has traceable calibration to isotope dilution-mass spectrometry. Refer to KDIGO guidelines for clinical interpretation. In patients with unstable renal function, e.g. those with acute kidney injury, the eGFR may not accurately reflect actual GFR. Performed By: #### 3 4528-0 #### [facility] CLIA [id number] [address] [place] [address] [place] Glucose [Mass/Vol] 114 mg/dL High 74-99 [facility] Comment on above: Order Comment: Shannan balbuena Type: BLOOD SPECIMEN Ordering Facility: [facility] Address: [address] [place] [address] Result Comment: The [place] [employer] (ADA) provides guidance for cutoff values for fasting glucose and random glucose. The ADA defines fasting as no caloric intake for at least 8 hours. Fasting plasma glucose results between 100 to 125 mg/dL indicate increased risk for diabetes (prediabetes). Fasting plasma glucose results greater than or equal to 126 mg/dL meet the criteria for diagnosis of diabetes. In the absence of unequivocal hyperglycemia, results should be confirmed by repeat testing. In a patient with classic symptoms of hyperglycemia or hyperglycemic crisis, random plasma glucose results greater than or equal to 200 mg/dL meet the criteria for diagnosis of diabetes. Reference: Standards of Medical Care in Diabetes 2016, [place] [employer]. Diabetes Care. 2016.39(Suppl 1). Performed By: #### 3 4528-0 #### [facility] CLIA [id number] [address] [place] [address] [place] Potassium [Moles/Vol] 4.1 mmol/L Normal 3.7-5.1 [facility] Comment on above: Order Comment: Speci men Type: BLOOD SPECIMEN Ordering Facility: [facility] Address: [address] [place] [address] Performed By: #### 3 4528-0 #### [facility] CLIA [id number] [address] [place] [address] [place] Protein [Mass/Vol] 7.8 g/dL Normal 6.3-8.0 [facility] Comment on above: Order Comment: Speci men Type: BLOOD SPECIMEN Ordering Facility: [facility] Address: [address] [place] [address] Performed By: #### 3 4528-0 #### [facility] CLIA [id number] [address] [place] [address] [place] Sodium [Moles/Vol] 140 mmol/L Normal 136-144 [facility] Comment on above: Order Comment: Speci men Type: BLOOD SPECIMEN Ordering Facility: [facility] Address: [address] [place] [address] Performed By: #### 3 4528-0 #### [facility] CLIA [id number] [address] [place] [address] [place] Urea nitrogen [Mass/Vol] 13 mg/dL Normal 7-21 [facility] Comment on above: Order Comment: Speci men Type: BLOOD SPECIMEN Ordering Facility: [facility] Address: [address] [place] [address] Performed By: #### 3 4528-0 #### [facility] CLIA [id number] [address] [place] [address] [place] HBV core Ab Ser Qlon 024 HBV core Ab Ql (S) Negative Normal Negative [facility] Comment on above: Order Comment: Speci men Type: BLOOD SPECIMENOrdering Facility: [facility] Address: [address] [place] [address] Result Comment: No e vidence of current or past infection with Hepatitis B virus. Should recent infection be suspected, repeat testing may be considered 3-4 weeks after this draw. Performed By: #### 1 6933-4, 5195-3, 84485-9 ####[facility] [id number] [place] [address] [place] HBV surface Ab Ql (S)on 10-21 HBV surface Ab Qn (S) <8.00 Normal [facility] Comment on above: Order Comment: Speci men Type: BLOOD SPECIMENOrdering Facility: [facility] Address: [address] [place] [address] Result Comment: <8 m IU/mL: No serological evidence of immunity to Hepatitis B Virus. >/= 8 to <12 mIU/mL: No serological evidence of immunity to Hepatitis B Virus. >/= 12 mIU/mL: Consistent with serological evidence of immunity to Hepatitis B Virus. Performed By: #### 1 6933-4, 5195-3, 45239-3 ####[facility] [id number] [place] [address] [place] HBV surface Ab Ser Qlon 10-21 HBV surface Ab Ql (S) Negative Normal [facility] Comment on above: Order Comment: Speci men Type: BLOOD SPECIMENOrdering Facility: [facility] Address: [address] [place] [address] Result Comment: No s erological evidence of immunity to Hepatitis B Virus. Performed By: #### 1 6933-4, 5195-3, 19857-1 ####[facility] [id number] [place] [address] [place] HBV surface Ag Ser Qlon 06 HBV surface Ag Ql (S) Negative Normal Negative [facility] Comment on above: Order Comment: Shannan balbuena Type: BLOOD SPECIMENOrdering Facility: [facility] Address: [address] [place] [address] Performed By: #### 1 6933-4, 5195-3, 19379-3 ####[facility] [id number] [place] [address] [place] HCV Ab Ser Qlon 11-03-2023 HCV Ab Ql (S) Negative Normal Negative [facility] Comment on above: Order Comment: Shannan balbuena Type: BLOOD SPECIMEN Ordering Facility: [facility] Address: [address] [place] [address] Result Comment: The result suggests no evidence of active infection with Hepatitis C virus. Should recent infection be suspected, repeat testing may be considered 4-6 weeks after this draw. Performed By: #### 3 4528-0 #### [facility] CLIA [id number] [address] [place] [address] [place] IMMUNOGLOBULINS,IGG,IGA,IGMo n 11-03-2023 IgA [Mass/Vol] 168 mg/dL Normal 70-400 [facility] Comment on above: Order Comment: Allyni men Type: BLOOD SPECIMEN Ordering Facility: [facility] Address: [address] [place] [address] Performed By: #### 3 4528-0 #### [facility] CLIA [id number] [address] [place] [address] [place] IgG [Mass/Vol] 960 mg/dL Normal 700-1600 [facility] Comment on above: Order Comment: Shannan balbuena Type: BLOOD SPECIMEN Ordering Facility: [facility] Address: [address] [place] [address] Performed By: #### 3 4528-0 #### [facility] CLIA [id number] [address] [place] [address] [place] IgM [Mass/Vol] 272 mg/dL High 40-230 [facility] Comment on above: Order Comment: Speci men Type: BLOOD SPECIMEN Ordering Facility: [facility] Address: [address] [place] [address] Performed By: #### 3 4528-0 #### [facility] CLIA [id number] [address] [place] [address] [place] JCV ANTIBODY AND INDEX WITH REFLEXon 11-03-2023 JCV ANTIBODY Indeterminate Abnormal [facility] Comment on above: Order Comment: Speci men Type: BLOOD SPECIMENOrdering Facility: [facility] Address: [address] [place] [address] Result Comment: See Inhibition Assay result below for the final antibody result. Index interpretive criteria: <0.20 negative 0.20-0.40 indeterminate >0.40 positive INTERPRETATION Negative: Antibodies to JCV not detected. Indeterminate: Low level reactivity detected, see Inhibition Assay result below for the final antibody result. Positive: Antibodies to SUJIT virus (JCV) detected indicating the patient has been exposed to JCV at an undetermined time. The STRATIFY JCV Antibody Test is an enzyme-linked immunosorbent assay (YULI) designed to detect JCV antibodies to help identify individuals who have been exposed to the virus. Samples with low level reactivity in the detection assay are retested in a confirmation (inhibition) assay to confirm presence or absence of JCV-specific antibodies. Retrospective analyses of post marketing data from various sources, including observational studies and spontaneous reports obtained worldwide, suggest that the risk of developing PML may be associated with relative levels of serum anti-JCV antibody as measured by anti-JCV antibody index.1 1TYSABRI(natalizumab)US Prescribing Information TEST PERFORMED AT: [id number] [facility] [address] [address] Converter Skimmer: Shannan White MD, PhD Performed By: #### J CVIDX, JCVHIB ####[facility] [id number] [place] [address] JCV INDEX VALUE 0.34 High [facility] Comment on above: Order Comment: Specshannan balbuena Type: BLOOD SPECIMENOrdering Facility: [facility] Address: [address] [place] [address] Performed By: #### J CVIDX, JCVHIB ####[facility] [id number] [place] [address] STRATIFY JCV AB INHIBITIONon 11-03-2023 STRATIFY JCV(TM) ANTIBODY INHIBITION ASSAY Negative Normal [facility] Comment on above: Order Comment: Shannan balbuena Type: BLOOD SPECIMEN [facility] Address: [address] [place] [address] Result Comment: REFERENCE RANGE: NEGATIVE INTERPRETATION: Positive: Antibodies to SUJIT virus (JCV) detected indicating the patient has been exposed to JCV at an undetermined time Negative: Antibodies to JCV not detected TEST PERFORMED AT: [id number] [facility] [address] [place] [address] Converter Skimmer: Shannan White MD, PhD Performed By: #### 1 3965-9 #### [facility] CLIA [id number] [address] [place] [address] [place] VARICELLA ZOSTER IGGon 11-02 VARICELLA ZOSTER IGG, QUAL Positive Normal Positive [facility] Comment on above: Order Comment: Speci men Type: BLOOD SPECIMEN [facility] Address: [address] [place] [address] Result Comment: The result suggests recent or past exposure to Varicella-Zoster virus or chickenpox vaccination or zoster vaccination. Positive result may also be seen due to presence of passively-transferred antibodies. Please correlate with patient's history. Performed By: #### 2 4362-6, 86770-0 #### [facility] CLIA [id number] [id number] [place] Sharan 10-27-2023 CNPN Telephone (NEMSMN) -------- LADI BERNSTEIN ([id number]) 2000 F Date Time Provider Department 10/27/23 ALDO PURVIS NEMYi During your visit today, we recorded the following information about you: Aldo Purvis MD 10/27/2023 11:35 AM Signed Called patient and verified by name and . Discussed neuroimaging demonstrating new non-GdE cervical and thoracic cord lesions. Clinically patient has remained stable since discharge from rehab and remains predominantly requiring wheelchair/walker. Taken together with other results, this likely represents spectrum of relapsing demyelinating disorders requiring long-term immunotherapy. Will schedule patient for add-on visit tomorrow pm virtually to discuss further. Aldo Purvis MD Neuroimmunology Fellow Allergies As of Date: 10/27/2023 (No Known Allergies) Date Reviewed: 10/25/2023 Reviewed by: Nydia Perez, MINES SAFETY ENGINEER - Fully Assessed Prescriptions as of 10/27/2023 - LORazepam (ATIVAN) 0.5 mg Take 1 tablet by mouth once daily as needed (For MRI anxiety) for up to 1 dose. Please take 30-60 minutes prior to MRI. Please do not drive on the day of taking this medication. - baclofen 5 mg tablet Take 1 tablet by mouth three times a day. - nortriptyline (PAMELOR) 10 mg capsule Take 2 capsules by mouth daily at bedtime. - cholecalciferol (VITAMIN D3) 1,000 unit tab tablet 1 tablet by ORAL/FEEDING TUBE route once daily. - pregabalin (LYRICA) 150 mg capsule Take 1 capsule by mouth twice daily for 90 days. - baclofen 5 mg tablet 0.5 tablets by ORAL/FEEDING TUBE route two times a day as needed. - VYVANSE 30 mg capsule Take 1 capsule by mouth once daily. - gabapentin (NEURONTIN) 100 mg capsule (Discontinued) Take 300 mg by mouth three times a day. 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 Nicotine use disorder, F17.2 [F17.200] 09/21/2023 Obesity, Class II, BMI 35-39.9 [E66.9] 09/23/2023 ADHD [F90.9] 09/23/2023 Neuropathic pain [M79.2] 09/23/2023 Vasovagal episode [R55] 09/23/2023 09/26/2023 Alteration in self-care ability [R68.89] 09/23/2023 Impaired mobility [Z74.09] 09/23/2023 At risk for falls [Z91.81] 09/23/2023 Encounter Status:[facility] LADI [facility]ERN[facility] ([id number]) 2000 F Date Time Provider Department 10/27/23 KEVIN HOLLOWAY During your visit today, we recorded the following information about you: Leslee 10/27/2023 10:18 AM Signed Perico Call Name of caller : Ladi Relationship to patient: Self Return call phone number : [phone] Reason for call : Patient is requesting to review recent MRI because she has questions about lesions Moriah Marcus APRN.AUTOMATIC GRINDER OPERATOR 10/27/2023 1:00 PM Signed Addressed by fellow in different encounter. Moriah MARCUS APRN.AUTOMATIC GRINDER OPERATOR Allergies As of Date: 10/27/2023 (No Known Allergies) Date Reviewed: 10/25/2023 Reviewed by: Nydia Perez, ANA - Fully Assessed Reason for Visit: Patient Question [1117] Cmt: Patient is requesting to review recent MRI because she has questions about lesions Prescriptions as of 10/27/2023 - LORazepam (ATIVAN) 0.5 mg Take 1 tablet by mouth once daily as needed (For MRI anxiety) for up to 1 dose. Please take 30-60 minutes prior to MRI. Please do not drive on the day of taking this medication. - baclofen 5 mg tablet Take 1 tablet by mouth three times a day. - nortriptyline (PAMELOR) 10 mg capsule Take 2 capsules by mouth daily at bedtime. - cholecalciferol (VITAMIN D3) 1,000 unit tab tablet 1 tablet by ORAL/FEEDING TUBE route once daily. - pregabalin (LYRICA) 150 mg capsule Take 1 capsule by mouth twice daily for 90 days. - baclofen 5 mg tablet 0.5 tablets by ORAL/FEEDING TUBE route two times a day as needed. - VYVANSE 30 mg capsule Take 1 capsule by mouth once daily. - gabapentin (NEURONTIN) 100 mg capsule (Discontinued) Take 300 mg by mouth three times a day. 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 Nicotine use disorder, F17.2 [F17.200] 09/21/2023 Obesity, Class II, BMI 35-39.9 [E66.9] 09/23/2023 ADHD [F90.9] 09/23/2023 Neuropathic pain [M79.2] 09/23/2023 Vasovagal episode [R55] 09/23/2023 09/26/2023 Alteration in self-care ability [R68.89] 09/23/2023 Impaired mobility [Z74.09] 09/23/2023 At risk for falls [Z91.81] 09/23/2023 Encounter Status:Closed by MORIAH MARCUS on 10/27/23 [facility] Telephone ([facility]) -------- LADI BERNSTEIN ([id number]) 2000 F Date Time Provider Department 10/27/23 AMAURI CALHOUN [facility] During your visit today, we recorded the following information about you: Amauri 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 She was verified by name and birthdate at time of call. Results of tumor board presentation : New lesion noted on MRI cervical spine. Low risk for tumor. She is advised to keep neurology follow-ups. Can reevaluate on TB in 3 months with new imaging if needed. Will defer continued imaging to neurology at this time. 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 Please take 30-60 minutes prior to MRI. Please do not drive on the day of taking this medication. - baclofen 5 mg tablet Take 1 tablet by mouth three times a day. - nortriptyline (PAMELOR) 10 mg capsule Take 2 capsules by mouth daily at bedtime. - cholecalciferol (VITAMIN D3) 1,000 unit tab tablet 1 tablet by ORAL/FEEDING TUBE route once daily. - pregabalin (LYRICA) 150 mg capsule Take 1 capsule by mouth twice daily for 90 days. - baclofen 5 mg tablet 0.5 tablets by ORAL/FEEDING TUBE route two times a day as needed. - VYVANSE 30 mg capsule Take 1 capsule by mouth once daily. - gabapentin (NEURONTIN) 100 mg capsule (Discontinued) Take 300 mg by mouth three times a day. 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 No evidence of demyelinating disease. Transcribed Using Voice Recognition Transcribe Date/Time: Oct 25 2023 4:02P Dictated by: MARIO MALAGON MD This examination was interpreted and the report reviewed and electronically signed by: MARIO MALAGON MD on Oct 25 2023 4:05PM [facility] [place] * * *Final Report* * * DATE OF EXAM: Oct 25 2023 3:35PM [facility] 0295 - MRI BRAIN WO/W IVCON / PROCEDURE REASON: Demyelinating disease of central nervous system (HCC) * * * * Physician Interpretation * * * * RESULT: EXAMINATION: MRI BRAIN WO/W IVCON CLINICAL HISTORY: Demyelinating disease TECHNIQUE: Routine brain MRI protocol without and with contrast including diffusion images. MQ: MRBWOW_2 Contrast: 19 mL Dotarem IV COMPARISON: External facility MRI of the brain 09/07/2023 RESULT: Acute Change: There is no evidence of restricted diffusion to suggest an acute infarct. Hemorrhage: No evidence of space-occupying intracranial hemorrhage. Mass Lesion/ Mass Effect: No evidence of an intracranial mass or extra-axial fluid collection. No abnormal parenchymal or leptomeningeal enhancement is noted following contrast administration. No mass effect. Chronic Change: The white matter is within normal limits of signal intensity for age. Parenchyma: No significant volume loss for age. Ventricles: Normal caliber and morphology. Skull Base: Hypothalamic and pituitary region are grossly normal. Craniocervical junction is normal. No significant marrow replacement process. Vasculature: Major intracranial arterial structures, and dural venous sinuses show typical flow void, suggesting patency by spin echo criteria. Other: The visualized paranasal sinuses and mastoid air cells are clear. The orbits and extracranial soft tissues are unremarkable. [facility] Provider, [facility] - 10/25/2023 * * *Final Report* * * DATE OF EXAM: Oct 25 2023 3:35PM [facility] 0295 - MRI BRAIN WO/W IVCON / PROCEDURE REASON: Demyelinating disease of central nervous system (HCC) * * * * Physician Interpretation * * * * RESULT: EXAMINATION: MRI BRAIN WO/W IVCON CLINICAL HISTORY: Demyelinating disease TECHNIQUE: Routine brain MRI protocol without and with contrast including diffusion images. MQ: MRBWOW_2 Contrast: 19 mL Dotarem IV COMPARISON: External facility MRI of the brain 09/07/2023 RESULT: Acute Change: There is no evidence of restricted diffusion to suggest an acute infarct. Hemorrhage: No evidence of space-occupying intracranial hemorrhage. Mass Lesion/ Mass Effect: No evidence of an intracranial mass or extra-axial fluid collection. No abnormal parenchymal or leptomeningeal enhancement is noted following contrast administration. No mass effect. Chronic Change: The white matter is within normal limits of signal intensity for age. Parenchyma: No significant volume loss for age. Ventricles: Normal caliber and morphology. Skull Base: Hypothalamic and pituitary region are grossly normal. Craniocervical junction is normal. No significant marrow replacement process. Vasculature: Major intracranial arterial structures, and dural venous sinuses show typical flow void, suggesting patency by spin echo criteria. Other: The visualized paranasal sinuses and mastoid air cells are clear. The orbits and extracranial soft tissues are unremarkable. IMPRESSION IMPRESSION: Normal MRI of the brain. No evidence of demyelinating disease. Transcribed Using Voice Recognition Transcribe Date/Time: Oct 25 2023 4:02P Dictated by: MARIO MALAGON MD This examination was interpreted and the report reviewed and electronically signed by: MARIO MALAGON MD on Oct 25 2023 4:05PM [facility] MR Brain WO and W contrast I VOrdered By: [facility] Provider on 10-25-2023 [facility] MR Cervical spine WO and W c ontrast Janeen 10-25-2023 * * *Final Report* * * DATE OF EXAM: Oct 25 2023 3:35PM [facility] 0298 - MRI CERVICAL SPINE WO/W IVCON / PROCEDURE REASON: Demyelinating disease of central nervous system (HCC) * * * * Physician Interpretation * * * * RESULT: EXAMINATION: MRI CERVICAL SPINE WO/W IVCON, MRI THORACIC SPINE WO/W IVCON CLINICAL HISTORY: Demyelinating disease of central nervous system (HCC) TECHNIQUE: Routine cervical spine and thoracic MR protocol without and with intravenous gadolinium. COMPARISON: External facility MRI of the cervical spine 08/22/2023, external facility MRI of the thoracic spine 09/07/2023 RESULT: Cervical: Counting reference: Craniocervical junction. Anatomic Variants: None. Alignment: Alignment is anatomic. Craniocervical junction: Craniocervical junction is normal. Cord: Similar mildly expansile T2 STIR hyperintense lesion within the central cord at the level of the C3-C4 disc space with no evidence of postcontrast enhancement. Likely interval development of a new long segment T2 STIR hyperintense lesion within the central and dorsal aspect of the cervical cord spanning C5-C6 with no appreciable enhancement. Query additional faint T2 STIR hyperintense lesion within the dorsal aspect of the cord at the level of C1-C2. Bone marrow signal/fracture: No evidence of pathologic marrow infiltration. No evidence of prior fracture. Paraspinal soft tissues: The paraspinal soft tissues are within normal limits. Canal and foramina: Mild multilevel degenerative changes with canal stenosis most pronounced and mild at C4-C5 and C5-C6. No substantial foraminal stenosis identified. Thoracic: Localizer images: No additional findings. Alignment: Alignment is anatomic. Cord: Interval development of multiple patchy T2 STIR hyperintense lesions scattered throughout the thoracic spinal cord, most pronounced within the central quezada matter of the spinal cord spanning T10-T11. No enhancing lesions are identified. Bone marrow signal/fracture: No evidence of pathologic marrow infiltration. No evidence of prior fracture. Paraspinal soft tissues: The paraspinal soft tissues are within normal limits. Canal and foramina: No substantial canal or foraminal stenosis identified. [facility] Provider, Corrie Casiano [facility] - 10/25/2023 * * *Final Report* * * DATE OF EXAM: Oct 25 2023 3:35PM [facility] 0298 - MRI CERVICAL SPINE WO/W IVCON / PROCEDURE REASON: Demyelinating disease of central nervous system (HCC) * * * * Physician Interpretation * * * * RESULT: EXAMINATION: MRI CERVICAL SPINE WO/W IVCON, MRI THORACIC SPINE WO/W IVCON CLINICAL HISTORY: Demyelinating disease of central nervous system (HCC) TECHNIQUE: Routine cervical spine and thoracic MR protocol without and with intravenous gadolinium. COMPARISON: External facility MRI of the cervical spine 08/22/2023, external facility MRI of the thoracic spine 09/07/2023 RESULT: Cervical: Counting reference: Craniocervical junction. Anatomic Variants: None. Alignment: Alignment is anatomic. Craniocervical junction: Craniocervical junction is normal. Cord: Similar mildly expansile T2 STIR hyperintense lesion within the central cord at the level of the C3-C4 disc space with no evidence of postcontrast enhancement. Likely interval development of a new long segment T2 STIR hyperintense lesion within the central and dorsal aspect of the cervical cord spanning C5-C6 with no appreciable enhancement. Query additional faint T2 STIR hyperintense lesion within the dorsal aspect of the cord at the level of C1-C2. Bone marrow signal/fracture: No evidence of pathologic marrow infiltration. No evidence of prior fracture. Paraspinal soft tissues: The paraspinal soft tissues are within normal limits. Canal and foramina: Mild multilevel degenerative changes with canal stenosis most pronounced and mild at C4-C5 and C5-C6. No substantial foraminal stenosis identified. Thoracic: Localizer images: No additional findings. Alignment: Alignment is anatomic. Cord: Interval development of multiple patchy T2 STIR hyperintense lesions scattered throughout the thoracic spinal cord, most pronounced within the central quezada matter of the spinal cord spanning T10-T11. No enhancing lesions are identified. Bone marrow signal/fracture: No evidence of pathologic marrow infiltration. No evidence of prior fracture. Paraspinal soft tissues: The paraspinal soft tissues are within normal limits. Canal and foramina: No substantial canal or foraminal stenosis identified. IMPRESSION IMPRESSION: Compared to most recent external facility MRI performed in August 2023, there has been interval development of new T2 STIR hyperintense lesions within the central and dorsal aspect of the cervical spinal cord spanning C5-C6 as well as multifocally within the thoracic spinal cord, most pronounced and centrally spanning T10-T11. These findings are concerning for interval progression of multifocal demyelinating disease. Similar appearance of pre-existing T2 STIR hyperintense lesion within the central cord at the level of the C3-C4 disc space, also concerning for demyelinating disease. Query additional tiny lesion within the dorsal cord at the level of C1-C2. No enhancing cord lesions are identified. Transcribed Using Voice Recognition Transcribe Date/Time: Oct 25 2023 4:06P Dictated by: MARIO MALAGON MD This examination was interpreted and the report reviewed and electronically signed by: MARIO MALAGON MD on Oct 25 2023 4:18PM [facility] MR Thoracic spine WO and W c ontrast Janeen 10-25-2023 * * *Final Report* * * DATE OF EXAM: Oct 25 2023 3:35PM [facility] 0326 - MRI THORACIC SPINE WO/W IVCON / PROCEDURE REASON: Demyelinating disease of central nervous system (HCC) * * * * Physician Interpretation * * * * RESULT: EXAMINATION: MRI CERVICAL SPINE WO/W IVCON, MRI THORACIC SPINE WO/W IVCON CLINICAL HISTORY: Demyelinating disease of central nervous system (HCC) TECHNIQUE: Routine cervical spine and thoracic MR protocol without and with intravenous gadolinium. COMPARISON: External facility MRI of the cervical spine 08/22/2023, external facility MRI of the thoracic spine 09/07/2023 RESULT: Cervical: Counting reference: Craniocervical junction. Anatomic Variants: None. Alignment: Alignment is anatomic. Craniocervical junction: Craniocervical junction is normal. Cord: Similar mildly expansile T2 STIR hyperintense lesion within the central cord at the level of the C3-C4 disc space with no evidence of postcontrast enhancement. Likely interval development of a new long segment T2 STIR hyperintense lesion within the central and dorsal aspect of the cervical cord spanning C5-C6 with no appreciable enhancement. Query additional faint T2 STIR hyperintense lesion within the dorsal aspect of the cord at the level of C1-C2. Bone marrow signal/fracture: No evidence of pathologic marrow infiltration. No evidence of prior fracture. Paraspinal soft tissues: The paraspinal soft tissues are within normal limits. Canal and foramina: Mild multilevel degenerative changes with canal stenosis most pronounced and mild at C4-C5 and C5-C6. No substantial foraminal stenosis identified. Thoracic: Localizer images: No additional findings. Alignment: Alignment is anatomic. Cord: Interval development of multiple patchy T2 STIR hyperintense lesions scattered throughout the thoracic spinal cord, most pronounced within the central quezada matter of the spinal cord spanning T10-T11. No enhancing lesions are identified. Bone marrow signal/fracture: No evidence of pathologic marrow infiltration. No evidence of prior fracture. Paraspinal soft tissues: The paraspinal soft tissues are within normal limits. Canal and foramina: No substantial canal or foraminal stenosis identified. [facility] Provider, [facility] - 10/25/2023 * * *Final Report* * * DATE OF EXAM: Oct 25 2023 3:35PM [facility] 0326 - MRI THORACIC SPINE WO/W IVCON / PROCEDURE REASON: Demyelinating disease of central nervous system (HCC) * * * * Physician Interpretation * * * * RESULT: EXAMINATION: MRI CERVICAL SPINE WO/W IVCON, MRI THORACIC SPINE WO/W IVCON CLINICAL HISTORY: Demyelinating disease of central nervous system (HCC) TECHNIQUE: Routine cervical spine and thoracic MR protocol without and with intravenous gadolinium. COMPARISON: External facility MRI of the cervical spine 08/22/2023, external facility MRI of the thoracic spine 09/07/2023 RESULT: Cervical: Counting reference: Craniocervical junction. Anatomic Variants: None. Alignment: Alignment is anatomic. Craniocervical junction: Craniocervical junction is normal. Cord: Similar mildly expansile T2 STIR hyperintense lesion within the central cord at the level of the C3-C4 disc space with no evidence of postcontrast enhancement. Likely interval development of a new long segment T2 STIR hyperintense lesion within the central and dorsal aspect of the cervical cord spanning C5-C6 with no appreciable enhancement. Query additional faint T2 STIR hyperintense lesion within the dorsal aspect of the cord at the level of C1-C2. Bone marrow signal/fracture: No evidence of pathologic marrow infiltration. No evidence of prior fracture. Paraspinal soft tissues: The paraspinal soft tissues are within normal limits. Canal and foramina: Mild multilevel degenerative changes with canal stenosis most pronounced and mild at C4-C5 and C5-C6. No substantial foraminal stenosis identified. Thoracic: Localizer images: No additional findings. Alignment: Alignment is anatomic. Cord: Interval development of multiple patchy T2 STIR hyperintense lesions scattered throughout the thoracic spinal cord, most pronounced within the central quezada matter of the spinal cord spanning T10-T11. No enhancing lesions are identified. Bone marrow signal/fracture: No evidence of pathologic marrow infiltration. No evidence of prior fracture. Paraspinal soft tissues: The paraspinal soft tissues are within normal limits. Canal and foramina: No substantial canal or foraminal stenosis identified. IMPRESSION IMPRESSION: Compared to most recent external facility MRI performed in August 2023, there has been interval development of new T2 STIR hyperintense lesions within the central and dorsal aspect of the cervical spinal cord spanning C5-C6 as well as multifocally within the thoracic spinal cord, most pronounced and centrally spanning T10-T11. These findings are concerning for interval progression of multifocal demyelinating disease. Similar appearance of pre-existing T2 STIR hyperintense lesion within the central cord at the level of the C3-C4 disc space, also concerning for demyelinating disease. Query additional tiny lesion within the dorsal cord at the level of C1-C2. No enhancing cord lesions are identified. Transcribed Using Voice Recognition Transcribe Date/Time: Oct 25 2023 4:06P Dictated by: MARIO MALAGON MD This examination was interpreted and the report reviewed and electronically signed by: MARIO MALAGON MD on Oct 25 2023 4:18PM [facility] MRI BRAIN WO/W IVCONon 10-24 MRI BRAIN WO/W IVCON * * *Final Report* * * DATE OF EXAM: Oct 25 2023 3:35PM [facility] 0295 - MRI BRAIN WO/W IVCON / PROCEDURE REASON: Demyelinating disease of central nervous system (HCC) * * * * Physician Interpretation * * * * RESULT: EXAMINATION: MRI BRAIN WO/W IVCON CLINICAL HISTORY: Demyelinating disease TECHNIQUE: Routine brain MRI protocol without and with contrast including diffusion images. MQ: [id number]_[id number] Contrast: 19 mL Dotarem IV COMPARISON: External facility MRI of the brain 09/07/2023 RESULT: Acute Change: There is no evidence of restricted diffusion to suggest an acute infarct. Hemorrhage: No evidence of space-occupying intracranial hemorrhage. Mass Lesion/ Mass Effect: No evidence of an intracranial mass or extra-axial fluid collection. No abnormal parenchymal or leptomeningeal enhancement is noted following contrast administration. No mass effect. Chronic Change: The white matter is within normal limits of signal intensity for age. Parenchyma: No significant volume loss for age. Ventricles: Normal caliber and morphology. Skull Base: Hypothalamic and pituitary region are grossly normal. Craniocervical junction is normal. No significant marrow replacement process. Vasculature: Major intracranial arterial structures, and dural venous sinuses show typical flow void, suggesting patency by spin echo criteria. Other: The visualized paranasal sinuses and mastoid air cells are clear. The orbits and extracranial soft tissues are unremarkable. IMPRESSION: Normal MRI of the brain. No evidence of demyelinating disease. Transcribed Using Voice Recognition Transcribe Date/Time: Oct 25 2023 4:02P Dictated by: MARIO MALAGON MD This examination was interpreted and the report reviewed and electronically signed by: MARIO MALAGON MD on Oct 25 2023 4:05PM EST [id number] Normal [facility] MRI CERVICAL SPINE WO/W IVCO Non 10-25-2023 MRI CERVICAL SPINE WO/W IVCON * * *Final Report* * * DATE OF EXAM: Oct 25 2023 3:35PM [facility] 0298 - MRI CERVICAL SPINE WO/W IVCON / PROCEDURE REASON: Demyelinating disease of central nervous system (HCC) * * * * Physician Interpretation * * * * RESULT: EXAMINATION: MRI CERVICAL SPINE WO/W IVCON, MRI THORACIC SPINE WO/W IVCON CLINICAL HISTORY: Demyelinating disease of central nervous system (HCC) TECHNIQUE: Routine cervical spine and thoracic MR protocol without and with intravenous gadolinium. COMPARISON: External facility MRI of the cervical spine 08/22/2023, external facility MRI of the thoracic spine 09/07/2023 RESULT: Cervical: Counting reference: Craniocervical junction. Anatomic Variants: None. Alignment: Alignment is anatomic. Craniocervical junction: Craniocervical junction is normal. Cord: Similar mildly expansile T2 STIR hyperintense lesion within the central cord at the level of the C3-C4 disc space with no evidence of postcontrast enhancement. Likely interval development of a new long segment T2 STIR hyperintense lesion within the central and dorsal aspect of the cervical cord spanning C5-C6 with no appreciable enhancement. Query additional faint T2 STIR hyperintense lesion within the dorsal aspect of the cord at the level of C1-C2. Bone marrow signal/fracture: No evidence of pathologic marrow infiltration. No evidence of prior fracture. Paraspinal soft tissues: The paraspinal soft tissues are within normal limits. Canal and foramina: Mild multilevel degenerative changes with canal stenosis most pronounced and mild at C4-C5 and C5-C6. No substantial foraminal stenosis identified. Thoracic: Localizer images: No additional findings. Alignment: Alignment is anatomic. Cord: Interval development of multiple patchy T2 STIR hyperintense lesions scattered throughout the thoracic spinal cord, most pronounced within the central quezada matter of the spinal cord spanning T10-T11. No enhancing lesions are identified. Bone marrow signal/fracture: No evidence of pathologic marrow infiltration. No evidence of prior fracture. Paraspinal soft tissues: The paraspinal soft tissues are within normal limits. Canal and foramina: No substantial canal or foraminal stenosis identified. IMPRESSION: Compared to most recent external facility MRI performed in August 2023, there has been interval development of new T2 STIR hyperintense lesions within the central and dorsal aspect of the cervical spinal cord spanning C5-C6 as well as multifocally within the thoracic spinal cord, most pronounced and centrally spanning T10-T11. These findings are concerning for interval progression of multifocal demyelinating disease. Similar appearance of pre-existing T2 STIR hyperintense lesion within the central cord at the level of the C3-C4 disc space, also concerning for demyelinating disease. Query additional tiny lesion within the dorsal cord at the level of C1-C2. No enhancing cord lesions are identified. Transcribed Using Voice Recognition Transcribe Date/Time: Oct 25 2023 4:06P Dictated by: MARIO MALAGON MD This examination was interpreted and the report reviewed and electronically signed by: MARIO MALAGON MD on Oct 25 2023 4:18PM EST [id number] [facility] MRI THORACIC SPINE WO/W IVCO Non 10-25-2023 MRI THORACIC SPINE WO/W IVCON * * *Final Report* * * DATE OF EXAM: Oct 25 2023 3:35PM [facility] 0326 - MRI THORACIC SPINE WO/W IVCON / PROCEDURE REASON: Demyelinating disease of central nervous system (HCC) * * * * Physician Interpretation * * * * RESULT: EXAMINATION: MRI CERVICAL SPINE WO/W IVCON, MRI THORACIC SPINE WO/W IVCON CLINICAL HISTORY: Demyelinating disease of central nervous system (HCC) TECHNIQUE: Routine cervical spine and thoracic MR protocol without and with intravenous gadolinium. COMPARISON: External facility MRI of the cervical spine 08/22/2023, external facility MRI of the thoracic spine 09/07/2023 RESULT: Cervical: Counting reference: Craniocervical junction. Anatomic Variants: None. Alignment: Alignment is anatomic. Craniocervical junction: Craniocervical junction is normal. Cord: Similar mildly expansile T2 STIR hyperintense lesion within the central cord at the level of the C3-C4 disc space with no evidence of postcontrast enhancement. Likely interval development of a new long segment T2 STIR hyperintense lesion within the central and dorsal aspect of the cervical cord spanning C5-C6 with no appreciable enhancement. Query additional faint T2 STIR hyperintense lesion within the dorsal aspect of the cord at the level of C1-C2. Bone marrow signal/fracture: No evidence of pathologic marrow infiltration. No evidence of prior fracture. Paraspinal soft tissues: The paraspinal soft tissues are within normal limits. Canal and foramina: Mild multilevel degenerative changes with canal stenosis most pronounced and mild at C4-C5 and C5-C6. No substantial foraminal stenosis identified. Thoracic: Localizer images: No additional findings. Alignment: Alignment is anatomic. Cord: Interval development of multiple patchy T2 STIR hyperintense lesions scattered throughout the thoracic spinal cord, most pronounced within the central quezada matter of the spinal cord spanning T10-T11. No enhancing lesions are identified. Bone marrow signal/fracture: No evidence of pathologic marrow infiltration. No evidence of prior fracture. Paraspinal soft tissues: The paraspinal soft tissues are within normal limits. Canal and foramina: No substantial canal or foraminal stenosis identified. IMPRESSION: Compared to most recent external facility MRI performed in August 2023, there has been interval development of new T2 STIR hyperintense lesions within the central and dorsal aspect of the cervical spinal cord spanning C5-C6 as well as multifocally within the thoracic spinal cord, most pronounced and centrally spanning T10-T11. These findings are concerning for interval progression of multifocal demyelinating disease. Similar appearance of pre-existing T2 STIR hyperintense lesion within the central cord at the level of the C3-C4 disc space, also concerning for demyelinating disease. Query additional tiny lesion within the dorsal cord at the level of C1-C2. No enhancing cord lesions are identified. Transcribed Using Voice Recognition Transcribe Date/Time: Oct 25 2023 4:06P Dictated by: MARIO MALAGON MD This examination was interpreted and the report reviewed and electronically signed by: MARIO MALAGON MD on Oct 25 2023 4:18PM EST [id number] Normal [facility] No Panel Informationon 10-24 IMPRESSION: Compared to most recent external facility MRI performed in August 2023, there has been interval development of new T2 STIR hyperintense lesions within the central and dorsal aspect of the cervical spinal cord spanning C5-C6 as well as multifocally within the thoracic spinal cord, most pronounced and centrally spanning T10-T11. These findings are concerning for interval progression of multifocal demyelinating disease. Similar appearance of pre-existing T2 STIR hyperintense lesion within the central cord at the level of the C3-C4 disc space, also concerning for demyelinating disease. Query additional tiny lesion within the dorsal cord at the level of C1-C2. No enhancing cord lesions are identified. Transcribed Using Voice Recognition Transcribe Date/Time: Oct 25 2023 4:06P Dictated by: MARIO MALAGON MD This examination was interpreted and the report reviewed and electronically signed by: MARIO MALAGON MD on Oct 25 2023 4:18PM [facility] [place] RADIOLOG[facility] Radiology Study observation (narrative) [facility] No Panel InformationOrdered By: Ccf Provider on 10-25-2023 [facility] CNCOon 10-24-2023 CNCO Letter Text Normal [facility] CNOVon 10-24-2023 [facility] -------- LADI BERNSTEIN ([id number]) 2000 F Date Time Provider Department 10/24/23 2:00 PM AMAURI CALHOUN [facility] During your visit today, we recorded the following information about you: Weight Height Last Period 94.5 kg 1.626 m 10/23/23 Amauri Calhoun APRN.AUTOMATIC GRINDER OPERATOR 10/25/2023 12:00 PM Signed [facility] Path Neck Pain - Chronic (> 12 weeks) Initial Exam SUBJECTIVE HISTORY OF PRESENT ILLNESS: Ladi Bernstein is a 23 year old female who presents with a chief complaint of low back, neck, arm, and leg pain and is seen in consultation requested by Dr. Kevin Holloway for an opinion regarding myelopathy . My final recommendations will be communicated back to the requesting physician by way of shared medical record or letter via US mail. Patient presents with Full body pain , today worst in bilateral hands and wrist. Denies accident/injury Onset of symptoms began in August 2022. She reports that initial symptoms began with bilateral feet numbness that then progressed upwards to bilateral lower extremities stopping at her waistline. She reported symptoms at that time to primary care provider and had x-rays completed. She states that then numbness began progressing to her chest and hands. After onset numbness to chest and hands to begin experiencing a squeezing sensation to her rib pain and full body pain along with weakness to all extremities. When the symptoms occurred she went to the emergency department at [facility] where she was advised to see a neurologist. She then went to [facility] where she had continuation and worsening of symptoms and had a CT of brain and was once again referred to see a neurologist. She then established with Dr. Garcia at [facility]. She states initially she was diagnosed with transverse myelitis where she had a spinal tap completed after cervical spine lesion was noted on MRI. Patient reports that she was told results were inconclusive. While she was her symptoms improved in her second trimester. She gave in March 2023 to a premature son. After giving son was in the NICU for approximately 4 months. She states that during this time symptoms were mild. She began having increased pain and symptoms in July 2023. She states that after experienced an increase in pain for 3 weeks she was attempting to cut her dinner and the pain intensified and she began having sensations that her hands and fingers were breaking along with numbness. She reports that she began having dexterity difficulties with inability to grasp items and was dropping items frequently. She was once again evaluated by her neurologist with new MRI imaging completed at that time. She states that the lesion could not be the lesion had could not be biopsied increased. She states that she was also told that she had FND and was referred to a second. At [facility]. She has recently been seen and evaluated by Dr. Holloway. After her initial evaluation with Dr. Holloway she was admitted to the hospital 09/20/2023 through 09/27/2023. During admission lumbar puncture and laboratory studies were completed. At discharge she went to a rehab facility from 09/27/2023 through 10/04/2023. She reports that she has been in a wheelchair due to difficulty with balance and ambulation since 09/27/2023. She has recently followed up with Dr. Holloway where a referral to neuro-oncology was placed. At time of today's appointment she states that when she attempted to make neuro oncology consult appointment along with spine surgery consult appointment she was placed onto this providers schedule. Per Dr. Holloway note 10/04/2023: DISEASE SUMMARY Date of onset: August 2022 Date of diagnosis of MS: N/A Disease course at onset: Relapsing-Remitting Current disease course: Relapsing-Remitting Previous disease therapies: - IVMP x3 days (August 23-09/2023) Current disease therapy: None Most recent MRI brain: 09/07/2023 (no lesions) Most recent MRI cervical spine: 08/22/2023 (non GdE C2/3 lesion, increased in size vs. 08/15/2022) Most recent MRI thoracic spine: 09/07/2023 (no lesions) CSF: - 12/09/2022 (RBC 0, WBC 10 [lymphocytic], Glucose 64, Protein 15.3, IgG index 2.5, OCBs not done) - 09/21/2023 (RBC 366, WBC 12 [lymphocytic], Glucose 67, Protein 50, IgG index 1.22, OCBs present, VDRL negative, HSV negative, cytology negative) JCV serology result and date: None OCT: 09/20/2023 (normal) Serum: - 2023: AQP4 Ab negative, copper wnl, vitamin B6 wnl,vitamin E wnl, vitamin B12/MMA wnl, syphilis negaitve, HIV negative, Lyme negative, HTLV negative, CRP wnl, CDS1 negative Systemic imaging: - PET whole body 09/22/2023: few likely reactive hypermetabolic cervical LN but otherwise unremarkable Hector, patient's fiance, present with patient consent Arrived in [facility] (more content not included)... Normal [facility] Sharan 10-24-2023 CNPN Telephone ([facility]) -------- LADI BERNSTEIN ([id number]) 2000 F Date Time Provider Department 10/24/23 ALDO PURVIS During your visit today, we recorded the following information about you: Anandrea KempGenesis 10/24/2023 4:07 PM Signed [place] Call Name of caller : Ladi Bernstein Relationship to patient: Self Return call phone number : [phone] Reason for call : Other : Brief description of concern : Patient is calling and having MRI's done tomorrow and she forgot to ask you for something for the MRI's. She needs something called into the [facility] on [address] at [address][phone]. If any questions, please call her. Please let her know once done. Aldo Purvis MD 10/24/2023 4:50 PM Signed Called patient and confirmed name and . Patient would like medication for anxiety related to MRI. She is not sure what but previously taken any medications was not great. Per PDMP review patient has history of diazepam dispense. Patient does not take any other benzodiazepines regularly or as needed. Will order 0.5 mg of lorazepam to be taken 30 -60 minutes prior to MRI ([facility] on [address] at #[phone]). Advised her not to drive on the day of taking. Patient also denies possibility of . Aldo Purvis MD Neuroimmunology Fellow Allergies As of Date: 10/24/2023 (No Known Allergies) Date Reviewed: 09/25/2023 Reviewed by: Remedios Bueno RN - Fully Assessed Reason for Visit: Patient Question [1477] Cmt: Need something for MRI's tomorrow Primary Visit Diagnosis:Anxiety [F41.9] Other Visit Diagnosis:Multiple sclerosis (HCC) [G35] Order(s):LORazepam (ATIVAN) 0.5 mgTake 1 tablet by mouth once daily as needed (For MRI anxiety) for up to 1 dose. Please take 30-60 minutes prior to MRI. Please do not drive on the day of taking this medication.Disp: 1 tabletRfl: 0 Prescriptions as of 10/24/2023 - LORazepam (ATIVAN) 0.5 mg Take 1 tablet by mouth once daily as needed (For MRI anxiety) for up to 1 dose. Please take 30-60 minutes prior to MRI. Please do not drive on the day of taking this medication. - baclofen 5 mg tablet Take 1 tablet by mouth three times a day. - nortriptyline (PAMELOR) 10 mg capsule Take 2 capsules by mouth daily at bedtime. - cholecalciferol (VITAMIN D3) 1,000 unit tab tablet 1 tablet by ORAL/FEEDING TUBE route once daily. - pregabalin (LYRICA) 150 mg capsule Take 1 capsule by mouth twice daily for 90 days. - baclofen 5 mg tablet 0.5 tablets by ORAL/FEEDING TUBE route two times a day as needed. - VYVANSE 30 mg capsule Take 1 capsule by mouth once daily. - gabapentin (NEURONTIN) 100 mg capsule (Discontinued) Take 300 mg by mouth three times a day. Problem List As Of Date 10/24/2023 Noted Resolved Type 2 diabetes mellitus without retinopathy (H*09/11/2015 Vitreous floaters of both eyes [H43.393] 09/11/2015 Transverse myelitis (HCC) [G37.3] 09/20/2023 Nicotine use disorder, F17.2 [F17.200] 09/21/2023 Obesity, Class II, BMI 35-39.9 [E66.9] 09/23/2023 ADHD [F90.9] 09/23/2023 Neuropathic pain [M79.2] 09/23/2023 Vasovagal episode [R55] 09/23/2023 09/26/2023 Alteration in self-care ability [R68.89] 09/23/2023 Impaired mobility [Z74.09] 09/23/2023 At risk for falls [Z91.81] 09/23/2023 Prescriptions ordered this encounter Disp Refills Start End LORAZEPAM 0.5 MG TABLET 1 ta* 0 10/24/2023 11/23/2023 Route: ORAL Sig: Take 1 tablet by mouth once daily as needed (For MRI anxiety) for up to 1 dose. Please take 30-60 minutes prior to MRI. Please do not drive on the day of taking this medication. Encounter Status:Closed by ALDO PURVIS on 10/24/23 [facility]20[facility] -------- LADI BERNSTEIN ([id number]) 2000 F Date Time Provider Department 10/21/23 AMAURI CALHOUN [facility] During your visit today, we recorded the following information about you: Amauri Calhoun APRN.[facility] 10/21/2023 3:56 PM Signed Provider called and spoke with patient regarding upcoming appointment. She was verified by name and birthdate at time of call. At time of call patient states that she thought that she was being evaluated by spine surgery and also a neurology oncologist. She states that she believes that there has been some confusion with the scheduling process. I informed patient that I have reached out to the spine scheduling team to assist with spine surgery consultation. At this time keep will keep patient on my schedule, if we do not hear from the spine scheduling team by Tuesday will change patient's appointment to a virtual appointment to assist with obtaining proper consultations. Patient was agreeable to this plan. Allergies As of Date: 10/21/2023 (No Known Allergies) Date Reviewed: 09/25/2023 Reviewed by: Remedios Bueno, GERMÁN - Fully Assessed Reason for Visit: Bronze Plater - Other [0669] Prescriptions as of 10/21/2023 - baclofen 5 mg tablet Take 1 tablet by mouth three times a day. - nortriptyline (PAMELOR) 10 mg capsule Take 2 capsules by mouth daily at bedtime. - cholecalciferol (VITAMIN D3) 1,000 unit tab tablet 1 tablet by ORAL/FEEDING TUBE route once daily. - pregabalin (LYRICA) 150 mg capsule Take 1 capsule by mouth twice daily for 90 days. - baclofen 5 mg tablet 0.5 tablets by ORAL/FEEDING TUBE route two times a day as needed. - VYVANSE 30 mg capsule Take 1 capsule by mouth once daily. - gabapentin (NEURONTIN) 100 mg capsule (Discontinued) Take 300 mg by mouth three times a day. Problem List As Of Date 10/21/2023 Noted Resolved Type 2 diabetes mellitus without retinopathy (H*09/11/2015 Vitreous floaters of both eyes [H43.393] 09/11/2015 Transverse myelitis (HCC) [G37.3] 09/20/2023 Nicotine use disorder, F17.2 [F17.200] 09/21/2023 Obesity, Class II, BMI 35-39.9 [E66.9] 09/23/2023 ADHD [F90.9] 09/23/2023 Neuropathic pain [M79.2] 09/23/2023 Vasovagal episode [R55] 09/23/2023 09/26/2023 Alteration in self-care ability [R68.89] 09/23/2023 Impaired mobility [Z74.09] 09/23/2023 At risk for falls [Z91.81] 09/23/2023 Encounter Status:Closed by AMAURI CALHOUN on 10/21/23 [facility] 10-18-2023 [facility] -------- DAY,LADI ([id number]) 2000 F Date Time Provider Department 10/18/23 [facility] During your visit today, we recorded the following information about you: Katty Cunha 10/18/2023 10:33 AM Signed Patient Info Patient Name Sex Ladi Barnes ([id number]) Female 2000 Order Information Date and Time Department Ordering Authorizing 10/04/2023 4:50 PM [facility] Aldo Alvarado Daniel Order Providers Authorizing Provider Encounter Provider Kevin Holloway MD Ontaneda, Daniel, MD Future Order Information Expires 10/03/24 Associated Diagnoses Spinal cord lesion (HCC) [G95.9] Reason for Exam Priority: Routine Dx: Spinal cord lesion (HCC) [G95.9 (ICD-10-CM)] Order Questions Question Answer [facility] Epic access? Yes [facility] - [facility] ADT-Related Order Information Appointments for this Order Date/Time Provider Department 10/24/23 2:00 PM - 45 min Amauri Calhoun APRN.AUTOMATIC GRINDER OPERATOR [facility] Priority and Order Details Priority Class Routine Radha Internal Referral Order History Outpatient Date/Time Action Taken User Additional Information 10/04/23 1650 Sign Aldo Purvis MD Miller, Tara, APRN.AUTOMATIC GRINDER OPERATOR 10/18/2023 1:02 PM Signed Please send to surgical spine for triage: Referring: Kevin Holloway MD Dx: Cervical spine lesion (with radiographic growth) Patient: Ladi Bernstein Address: Ladi Bernstein [id number] [address] [place] [address] Per Triage: Ladi Bernstein is a 23 year old female with ADHD, depression and history of relapsing cervical myelopathy. She presented from [facility] for relapsing generalized weakness after , pain, and ascending sensory changes. She presented in 08/2022 with subacute myelopathy with imaging demonstrating a lesion in her C-spine. These symptoms improved during and in 08/2023 started to have pain and ascending numbness and weakness. She was treated with 3 days of IV steroids without improvement. Repeat MRI C spine now with findings concerning for an expansile lesion in the same location as previously non-expansile lesion which is most concerning for demyelinating lesion. She was admitted to general neurology service for further evaluation and management. Her neurologic exam with relatively strong however largely limited by pain, sensory changes up to waist elbow, symmetric reflexes, with functional overlay. Given unclear nature of condition and lack of response to IV steroids it was discussed with Dr. Holloway the plan for therapy, pain control, and imaging surveillance. Her pain regimen was optimized to Lyrica 150 mg BID, Baclofen 5 mg TID, Nortriptyline 10 -> 20 mg QHS. PT and OT skilled her for acute rehab. She was discharged to acute rehab in stable condition. Patient expectations: New Consult Tumor Specifics: Location: spine Previous Evaluations: Cervical spine MRI 08/22/23 FINDINGS: NUMBERING/ALIGNMENT: There are 7 cervical type vertebrae. Vertebral body alignment is appropriate. Facet alignment is appropriate. Vertebral body heights are well-maintained. BONE MARROW: Normal bone marrow signal throughout. No suspicious enhancing lesion. SPINAL CORD: Redemonstration of focal spinal cord lesion at the C3-C4 level which slightly expands the posterior spinal cord, is T2 bright, and does not demonstrate definite enhancement. The T2 signal has decreased in this lesion compared to prior exam, however size is overall slightly larger, with ill-defined margins, measuring approximately 13 x 6 x 5 mm. There is no definite associated enhancement. No definite low signal on gradient sequence to suggest hemorrhage. No additional spinal cord lesions present. HEAD: Visualized portions of the intracranial contents are unremarkable. SOFT TISSUES: Unremarkable paraspinal soft tissues. DEGENERATIVE FINDINGS: Mild degenerative disc disease throughout. Craniocervical junction: Normal alignment at the craniocervical junction without narrowing at the foramen magnum and at C1-C2. Mild degenerative changes of the dens. C2-C3: No significant neural foraminal or thecal sac narrowing. C3-C4: Minimal disc bulge and facet degeneration. No significant spinal canal or neural foraminal stenosis. C4-C5: Mild disc osteophyte complex and mild effacement of thecal sac anteriorly. No significant neural foraminal narrowing. C5-C6: No significant neural foraminal or thecal sac narrowing. Minimal disc bulge. C6-C7: No significant neural foraminal or thecal sac narrowing. C7-T1: No significant neural foraminal or thecal sac narrowing. Likely small perineural cysts within neural foramen. IMPRESSION: Focal lesion of the C3-C4 spinal cord, as seen on prior, favored to be slightl (more content not included)... Normal [facility] Basic Metabolic Panelon 05- Anion gap [Moles/Vol] 9 mmol/L 9 - 17 mmol/L [facility] Calcium [Mass/Vol] 9.0 mg/dL 8.6 - 10. 4 mg/dL [facility] Chloride [Moles/Vol] 103 mmol/L 98 - 10 7 mmol/L [facility] CO2 [Moles/Vol] 27 mmol/L 20 - 31 mmol/L [facility] Creatinine [Mass/Vol] 0.9 mg/dL 0.5 - 0.9 mg/dL [facility] Ame Turpin Rate - [facility] Comment on above: These results are not intended for use in patients <18 years of age. eGFR results are calculated without a race factor using the 2020 CKD-EPI equation. Careful clinical correlation is recommended, particularly when comparing to results calculated using previous equations. The CKD-EPI equation is less accurate in patients with extremes of muscle mass, extra-renal metabolism of creatine, excessive creatine ingestion, or following therapy that affects renal tubular secretion. Glucose [Mass/Vol] 136 mg/dL High 70 - 99 mg/dL [facility] Interpretation and review of laboratory results Abnormal [facility] Potassium [Moles/Vol] 4.2 mmol/L 3.7 - 5.3 mmol/L [facility] Sodium [Moles/Vol] 139 mmol/L 135 - 144 mmol/L [facility] Urea nitrogen [Mass/Vol] 13 mg/dL 6 - 20 mg/dL [facility] Urea nitrogen/Creatinine [Mass ratio] 14 mg/mg - [facility] Basic Metabolic Profon 10-06 Anion gap [Moles/Vol] 9 mmol/L Normal - [facility] Comment on above: Performed By: #### C BC, BMP #### [facility] [address] [place], [place] [id number] [employer] Machine Operator: Charles He MD BUN/CRE Ratio 14 Normal - [facility] Comment on above: Performed By: #### C BC, BMP #### [facility] [address] [place] [address] [employer] Machine Operator: Charles eH MD Calcium [Mass/Vol] 9.0 mg/dL Normal 8.6-10.4 [facility] Comment on above: Performed By: #### C CHESTER, BMP #### [facility] [address] [facility] [place] [address] [employer] Up Machine Operator: Charles He MD Chloride [Moles/Vol] 103 mmol/L Normal 98-107 [facility] Comment on above: Performed By: #### C BC, BMP #### [facility] [address] [facility] [place] [address] [employer] Up Machine Operator: Charles He MD CO2 [Moles/Vol] 27 mmol/L Normal 20-31 [facility] Comment on above: Performed By: #### C CHESTER, BMP #### [facility] [facility] [place] [address] [employer] Up Machine Operator: Charles He MD Creatinine [Mass/Vol] 0.9 mg/dL Normal 0.5-0.9 [facility] Comment on above: Performed By: #### C CHESTER, BMP #### [facility] [facility] [place] [address] [employer] Up Machine Operator: Charles He MD GFR/1.73 sq M.predicted among non-blacks MDRD (S/P/Bld) [Vol rate/Area] mL/min/{1.73_m2} Normal >60 [facility] Comment on above: Result Comment: These results are not intended for use in patients <18 years of age. eGFR results are calculated without a race factor using the 2020 CKD-EPI equation. Careful clinical correlation is recommended, particularly when comparing to results calculated using previous equations. The CKD-EPI equation is less accurate in patients with extremes of muscle mass, extra-renal metabolism of creatine, excessive creatine ingestion, or following therapy that affects renal tubular secretion. Performed By: #### C BC, BMP #### [facility] [address] [facility] [place] [address] [employer] Up Machine Operator: Charles He MD Glucose [Mass/Vol] 136 mg/dL High 70-99 [facility] Comment on above: Performed By: #### C BC, BMP #### [facility] [address] [place] [address] [employer] Up Machine Operator: Charles He MD Potassium [Moles/Vol] 4.2 mmol/L Normal 3.7-5.3 [facility] Comment on above: Performed By: #### C BC, BMP #### [facility] [address] [place] [address] [employer] Up Machine Operator: Charles He MD Sodium [Moles/Vol] 139 mmol/L Normal 135-144 [facility] Comment on above: Performed By: #### C CHESTER, BMP #### [facility] [address] [place] [address] [employer] Up Machine Operator: Charles He MD Urea nitrogen [Mass/Vol] 13 mg/dL Normal 6-20 [facility] Comment on above: Performed By: #### C CHESTER, BMP #### [facility] [place] [address] Breaker Up Machine Operator: Charles He MD CBCon 10-07-2023 Erythrocyte distribution width (RBC) [Ratio] 14.4 % Normal 11.8-14.4 [facility] Comment on above: Performed By: #### C BC, BMP #### [facility] [facility] [place] [address] [employer]aker Up Machine Operator: Charles He MD Hematocrit (Bld) [Volume fraction] 38.0 % Normal 36.3-47.1 [facility] Comment on above: Performed By: #### C CHESTER, BMP #### [facility] [facility] [place] [address] Breaker Up Machine Operator: Charles He MD Hemoglobin (Bld) [Mass/Vol] 11.8 g/dL Low 11.9-15.1 [facility] Comment on above: Performed By: #### C BC, BMP #### [facility] [facility] [place] [address] Breaker Up Machine Operator: Charles He MD MCH (RBC) [Entitic mass] 28.1 pg Normal 25.2-33.5 [facility] Comment on above: Performed By: #### C BC, BMP #### [facility] [address] [place] [address] [employer] Up Machine Operator: Charles He MD MCHC (RBC) [Mass/Vol] 31.1 g/dL Normal 28.4-34.8 [facility] Comment on above: Performed By: #### C BC, BMP #### [facility] [address] [place] [address] Bre[employer] Up Machine Operator: Charles He MD MCV (RBC) [Entitic vol] 90.5 fL Normal 82.6-102.9 [facility] Comment on above: Performed By: #### C BC, BMP #### [facility] [address] [place] [address]. [place] [address] [employer] Up Machine Operator: Charles He MD NRBC Automated 0.0 per 100 WBC Normal 0.0 [facility] Comment on above: Performed By: #### C BC, BMP #### [facility] [address] [place] [address]. [place] [address] [employer] Up Machine Operator: Charles He MD Platelet mean volume (Bld) [Entitic vol] 10.9 fL Normal 8.1-13.5 [facility] Comment on above: Performed By: #### C BC, BMP #### [facility] [address] [facility] [place] [address] Breaker Up Machine Operator: Charles He MD Platelets (Bld) [#/Vol] 221 10*3/uL Normal 138-453 [facility] Comment on above: Performed By: #### C BC, BMP #### [facility] [address] [facility] [place] [address] [employer]aker Up Machine Operator: Charles He MD RBC (Bld) [#/Vol] 4.20 10*6/uL Normal 3.95-5.11 [facility] Comment on above: Performed By: #### C BC, BMP #### [facility] [address] [facility] [place] [address] [employer]aker Up Machine Operator: Charles He MD WBC (Bld) [#/Vol] 6.6 10*3/uL Normal 3.5-11.3 [facility] Comment on above: Performed By: #### C BC, BMP #### [facility] [address] [facility] [place] [address] [employer] Up Machine Operator: Charles He MD Erythrocyte distribution width (RBC) [Ratio] 14.4 % 11.8 - 14.4 % [facility] Hematocrit (Bld) [Volume fraction] 38.0 % 36.3 - 47.1 % [facility] Hemoglobin (Bld) [Mass/Vol] 11.8 g/dL Low 11.9 - 15.1 g/dL [facility] Interpretation and review of laboratory results Abnormal [facility] MCH (RBC) [Entitic mass] 28.1 pg 25.2 - 33.5 pg [facility] MCHC (RBC) [Mass/Vol] 31.1 g/dL 28.4 - 34.8 g/dL [facility] MCV (RBC) [Entitic vol] 90.5 fL 82.6 - 102.9 fL [facility] Nucleated RBC/100 WBC (Bld) [Ratio] 0.0 % 0.0 per 100 WBC [facility] Platelet mean volume (Bld) [Entitic vol] 10.9 fL 8.1 - 13.5 fL [facility] Platelets (Bld) [#/Vol] 221 10*3/uL [facility] RBC (Bld) [#/Vol] 4.20 10*6/uL 3.95 - 5.1 1 m/uL [facility] WBC other (Bld) [#/Vol] 6.6 [facility] Basic Metabolic Profon 10-03 Anion gap [Moles/Vol] 10 mmol/L Normal 9-17 [facility] Comment on above: Performed By: #### C CHESTER, BMP #### [facility] [address] [place] [address] [employer]aker Up Machine Operator: Charles He MD BUN/CRE Ratio 13 Normal 9-20 [facility] Comment on above: Performed By: #### C CHESTER, BMP #### [facility] [address] [place] [address] [employer] Up Machine Operator: Charles He MD Calcium [Mass/Vol] 8.8 mg/dL Normal 8.6-10.4 [facility] Comment on above: Performed By: #### C CHESTER, BMP #### [facility] [address] [place] [address] [employer]aker Up Machine Operator: Charles He MD Chloride [Moles/Vol] 102 mmol/L Normal 98-107 [facility] Comment on above: Performed By: #### C CHESTER, BMP #### [facility] [address] [place] [address] [employer] Up Machine Operator: Charles He MD CO2 [Moles/Vol] 26 mmol/L Normal 20-31 [facility] Comment on above: Performed By: #### C CHESTER, BMP #### [facility] [address] [facility] [place] [address] Breaker Up Machine Operator: Charles He MD Creatinine [Mass/Vol] 0.9 mg/dL Normal 0.5-0.9 [facility] Comment on above: Performed By: #### C BC, BMP #### [facility] [address] [facility] [place] [address] [employer]aker Up Machine Operator: Charles He MD GFR/1.73 sq M.predicted among non-blacks MDRD (S/P/Bld) [Vol rate/Area] mL/min/{1.73_m2} Normal >60 [facility] Comment on above: Result Comment: These results are not intended for use in patients <18 years of age. eGFR results are calculated without a race factor using the 2020 CKD-EPI equation. Careful clinical correlation is recommended, particularly when comparing to results calculated using previous equations. The CKD-EPI equation is less accurate in patients with extremes of muscle mass, extra-renal metabolism of creatine, excessive creatine ingestion, or following therapy that affects renal tubular secretion. Performed By: #### C CHESTER, BMP #### [facility] [address] [facility] [place] [address] Breaker Up Machine Operator: Charles He MD Glucose [Mass/Vol] 170 mg/dL High 70-99 [facility] Comment on above: Performed By: #### C CHESTER, BMP #### [facility] [address] [facility] [place] [address] Breaker Up Machine Operator: Charles He MD Potassium [Moles/Vol] 4.0 mmol/L Normal 3.7-5.3 [facility] Comment on above: Performed By: #### C BC, BMP #### [facility] [address] [facility] [place] [address] Breaker Up Machine Operator: Charles He MD Sodium [Moles/Vol] 138 mmol/L Normal 135-144 [facility] Comment on above: Performed By: #### C BC, BMP #### [facility] [address] [facility] [place] [address] Breaker Up Machine Operator: Charles He MD Urea nitrogen [Mass/Vol] 12 mg/dL Normal 6-20 [facility] Comment on above: Performed By: #### C BC, BMP #### [facility] [address] [facility] [place] [address] Breaker Up Machine Operator: Charles He MD CBCon 10-04-2023 Erythrocyte distribution width (RBC) [Ratio] 14.6 % High 11.8-14.4 [facility] Comment on above: Performed By: #### C BC, BMP #### [facility] [address] [place] [address]. [place] [address] Breaker Up Machine Operator: Charles He MD Hematocrit (Bld) [Volume fraction] 40.3 % Normal 36.3-47.1 [facility] Comment on above: Performed By: #### C CHESTER, BMP #### [facility] [facility] [place] [address] Breaker Up Machine Operator: Charles He MD Hemoglobin (Bld) [Mass/Vol] 12.5 g/dL Normal 11.9-15.1 [facility] Comment on above: Performed By: #### C BC, BMP #### [facility] [facility] [place] [address] Breaker Up Machine Operator: Charles He MD MCH (RBC) [Entitic mass] 27.8 pg Normal 25.2-33.5 [facility] Comment on above: Performed By: #### C BC, BMP #### [facility] [facility] [place] [address] Breaker Up Machine Operator: Charles He MD MCHC (RBC) [Mass/Vol] 31.0 g/dL Normal 28.4-34.8 [facility] Comment on above: Performed By: #### C BC, BMP #### [facility] [address] [place] [address] Breaker Up Machine Operator: Charles He MD MCV (RBC) [Entitic vol] 89.8 fL Normal 82.6-102.9 [facility] Comment on above: Performed By: #### C BC, BMP #### [facility] [facility] [place] [address] Breaker Up Machine Operator: Charles He MD NRBC Automated 0.0 per 100 WBC Normal 0.0 [facility] Comment on above: Performed By: #### C CHESTER, BMP #### [facility] [address] [place] [address]. [place] [address] Breaker Up Machine Operator: Charles He MD Platelet mean volume (Bld) [Entitic vol] 10.5 fL Normal 8.1-13.5 [facility] Comment on above: Performed By: #### C CHESTER, BMP #### [facility] [address] [place] [address]. [place] [address] Breaker Up Machine Operator: Charles He MD Platelets (Bld) [#/Vol] 223 10*3/uL Normal 138-453 [facility] Comment on above: Performed By: #### C CHESTER, BMP #### [facility] [facility] [place] [address] Breaker Up Machine Operator: Charles He MD RBC (Bld) [#/Vol] 4.49 10*6/uL Normal 3.95-5.11 [facility] Comment on above: Performed By: #### C CHESTER, BMP #### [facility] [facility] [place] [address] Breaker Up Machine Operator: Charles He MD WBC (Bld) [#/Vol] 6.7 10*3/uL Normal 3.5-11.3 [facility] Comment on above: Performed By: #### C BC, BMP #### [facility] [address] [place] [address] Breaker Up Machine Operator: Charles He MD Basic Metabolic Profon 09-29 Anion gap [Moles/Vol] 8 mmol/L Low 9-17 [facility] Comment on above: Performed By: #### B MP, CBC #### [facility] [place] [address] Breaker Up Machine Operator: Charles He MD BUN/CRE Ratio 21 High 9-20 [facility] Comment on above: Performed By: #### B MP, CBC #### [facility] [address] [place] [address] Breaker Up Machine Operator: Charles He MD Calcium [Mass/Vol] 9.0 mg/dL Normal 8.6-10.4 [facility] Comment on above: Performed By: #### B MP, CBC #### [facility] [address] [place], [place] [address] [address] Breaker Up Machine Operator: Charles He MD Chloride [Moles/Vol] 106 mmol/L Normal 98-107 [facility] Comment on above: Performed By: #### B MP, CBC #### [facility] [place] [address] Breaker Up Machine Operator: Charles He MD CO2 [Moles/Vol] 26 mmol/L Normal 20-31 [facility] Comment on above: Performed By: #### B MP, CBC #### [facility] [place] [address] Breaker Up Machine Operator: Charles He MD Creatinine [Mass/Vol] 0.8 mg/dL Normal 0.5-0.9 [facility] Comment on above: Performed By: #### B MP, CBC #### [facility] [address] [facility] [place] [address] Breaker Up Machine Operator: Charles He MD GFR/1.73 sq M.predicted among non-blacks MDRD (S/P/Bld) [Vol rate/Area] mL/min/{1.73_m2} Normal >60 [facility] Comment on above: Result Comment: These results are not intended for use in patients <18 years of age. eGFR results are calculated without a race factor using the 2020 CKD-EPI equation. Careful clinical correlation is recommended, particularly when comparing to results calculated using previous equations. The CKD-EPI equation is less accurate in patients with extremes of muscle mass, extra-renal metabolism of creatine, excessive creatine ingestion, or following therapy that affects renal tubular secretion. Performed By: #### B MP, CBC #### [facility] [facility] [place] [address] Breaker Up Machine Operator: Charles He MD Glucose [Mass/Vol] 118 mg/dL High 70-99 [facility] Comment on above: Performed By: #### B MP, CBC #### [facility] [facility] [place] [address] Breaker Up Machine Operator: Charles He MD Potassium [Moles/Vol] 3.9 mmol/L Normal 3.7-5.3 [facility] Comment on above: Performed By: #### B MP, CBC #### [facility] [facility] [place] [address] Breaker Up Machine Operator: Charles He MD Sodium [Moles/Vol] 140 mmol/L Normal 135-144 [facility] Comment on above: Performed By: #### B MP, CBC #### [facility] [address] [facility] [place] [address] Breaker Up Machine Operator: Charles He MD Urea nitrogen [Mass/Vol] 17 mg/dL Normal 6-20 [facility] Comment on above: Performed By: #### B MP, CBC #### [facility] [facility] [place] [address] Breaker Up Machine Operator: Charles He MD CBCon 09-30-2023 Erythrocyte distribution width (RBC) [Ratio] 14.7 % High 11.8-14.4 [facility] Comment on above: Performed By: #### B MP, CBC #### [facility] [address] [place] [address]. [place] [address] Breaker Up Machine Operator: Charles He MD Hematocrit (Bld) [Volume fraction] 39.6 % Normal 36.3-47.1 [facility] Comment on above: Performed By: #### B MP, CBC #### [facility] [address] [place] [address]. [place] [address] Breaker Up Machine Operator: Charles He MD Hemoglobin (Bld) [Mass/Vol] 12.6 g/dL Normal 11.9-15.1 [facility] Comment on above: Performed By: #### B MP, CBC #### [facility] [address] [place] [address]. [place] [address] Breaker Up Machine Operator: Charles He MD MCH (RBC) [Entitic mass] 27.8 pg Normal 25.2-33.5 [facility] Comment on above: Performed By: #### B MP, CBC #### [facility] [address] [place], [place] [address] [facility] [place] [address] Breaker Up Machine Operator: Charles He MD MCHC (RBC) [Mass/Vol] 31.8 g/dL Normal 28.4-34.8 [facility] Comment on above: Performed By: #### B MP, CBC #### [facility] [address] [facility] [place] [address] Breaker Up Machine Operator: Charles He MD MCV (RBC) [Entitic vol] 87.2 fL Normal 82.6-102.9 [facility] Comment on above: Performed By: #### B MP, CBC #### [facility] [facility] [place] [address] Breaker Up Machine Operator: Charles He MD NRBC Automated 0.0 per 100 WBC Normal 0.0 [facility] Comment on above: Performed By: #### B MP, CBC #### [facility] [address] [place] [address]. [place] [address] Breaker Up Machine Operator: Charles He MD Platelet mean volume (Bld) [Entitic vol] 10.7 fL Normal 8.1-13.5 [facility] Comment on above: Performed By: #### B MP, CBC #### [facility] [address] [place] [address]. [place] [address] Breaker Up Machine Operator: Charles He MD Platelets (Bld) [#/Vol] 226 10*3/uL Normal 138-453 [facility] Comment on above: Performed By: #### B MP, CBC #### [facility] [facility] [place] [address] Breaker Up Machine Operator: Charles He MD RBC (Bld) [#/Vol] 4.54 10*6/uL Normal 3.95-5.11 [facility] Comment on above: Performed By: #### B MP, CBC #### [facility] [address] [place] [address]. [place] [address] Breaker Up Machine Operator: Charles He MD WBC (Bld) [#/Vol] 6.4 10*3/uL Normal 3.5-11.3 [facility] Comment on above: Performed By: #### B MP, CBC #### [facility] [address] [place] [address] Breaker Up Machine Operator: MD Sharan Quiros 09-30-2023 [facility] ([facility]) -------- LADI BERNSTEIN ([id number]) 2000 F Date Time Provider Department 09/30/23 ALDO PURVIS During your visit today, we recorded the following information about you: Aldo Purvis MD 09/30/2023 2:14 PM Signed Called patient and verified by name and . Patient currently in acute rehab. She has a virtual appointment with us on Tuesday but had expressed anxiety over her results so had requested a telephone call. I discussed CSF results including elevated IgG index and presence of OCBs. They are not diagnostic on their own but may indicate an inflammatory etiology. She was curious about possibility of MS. I discussed this would be a possibility but there are some atypical features including lack of DIS which prompt us to enquire further before giving this diagnosis given the implications. Overall, there are no indications to change the therapeutic plan over the weekend and we will discuss our monitoring plan with her on upcoming appointment (most likely serial radiological monitoring and also referral to neuro-oncology). Future Appointments Date Time Provider Department Center 10/03/2023 1:40 PM Julia Lombardo PA-C [facility] 10/04/2023 9:00 AM Kevin Holloway MD [facility] Patient agreeable with the above. Aldo Purvis MD Neuroimmunology Fellow Allergies As of Date: 09/30/2023 (No Known Allergies) Date Reviewed: 09/25/2023 Reviewed by: Remedios Bueno, RN - Fully Assessed Prescriptions as of 09/30/2023 - baclofen 5 mg tablet Take 1 tablet by mouth three times a day. - nortriptyline (PAMELOR) 10 mg capsule Take 2 capsules by mouth daily at bedtime. - cholecalciferol (VITAMIN D3) 1,000 unit tab tablet 1 tablet by ORAL/FEEDING TUBE route once daily. - pregabalin (LYRICA) 150 mg capsule Take 1 capsule by mouth twice daily for 90 days. - baclofen 5 mg tablet 0.5 tablets by ORAL/FEEDING TUBE route two times a day as needed. - VYVANSE 30 mg capsule Take 1 capsule by mouth once daily. - gabapentin (NEURONTIN) 100 mg capsule (Discontinued) Take 300 mg by mouth three times a day. Problem List As Of Date 09/30/2023 Noted Resolved Type 2 diabetes mellitus without retinopathy (H*09/11/2015 Vitreous floaters of both eyes [H43.393] 09/11/2015 Transverse myelitis (HCC) [G37.3] 09/20/2023 Nicotine use disorder, F17.2 [F17.200] 09/21/2023 Obesity, Class II, BMI 35-39.9 [E66.9] 09/23/2023 ADHD [F90.9] 09/23/2023 Neuropathic pain [M79.2] 09/23/2023 Vasovagal episode [R55] 09/23/2023 09/26/2023 Alteration in self-care ability [R68.89] 09/23/2023 Impaired mobility [Z74.09] 09/23/2023 At risk for falls [Z91.81] 09/23/2023 Encounter Status:Closed by ALDO PURVIS on 09/30/23 Normal [facility] CBCon 09-28-2023 Erythrocyte distribution width (RBC) [Ratio] 14.8 % High 11.8-14.4 [facility] Comment on above: Performed By: #### C P, CBC #### [facility] [address] [place] [address] Breaker Up Machine Operator: Charles He MD Hematocrit (Bld) [Volume fraction] 37.5 % Normal 36.3-47.1 [facility] Comment on above: Performed By: #### C P, CBC #### [facility] [address] [place] [address]. [place] [address] Breaker Up Machine Operator: Charles He MD Hemoglobin (Bld) [Mass/Vol] 12.3 g/dL Normal 11.9-15.1 [facility] Comment on above: Performed By: #### C P, CBC #### [facility] [address] [place] [address]. [place] [address] Breaker Up Machine Operator: Charles He MD MCH (RBC) [Entitic mass] 28.3 pg Normal 25.2-33.5 [facility] Comment on above: Performed By: #### C P, CBC #### [facility] [address] [place] [address]. [place] [address] Breaker Up Machine Operator: Charles He MD MCHC (RBC) [Mass/Vol] 32.8 g/dL Normal 28.4-34.8 [facility] Comment on above: Performed By: #### C P, CBC #### [facility] [address] [place] [address]. [place] [address] Breaker Up Machine Operator: Charles He MD MCV (RBC) [Entitic vol] 86.2 fL Normal 82.6-102.9 [facility] Comment on above: Performed By: #### C P, CBC #### [facility] [address] [place] [address]. [place] [address] Breaker Up Machine Operator: Charles He MD NRBC Automated 0.0 per 100 WBC Normal 0.0 [facility] Comment on above: Performed By: #### C P, CBC #### [facility] [address] [place] [address]. [place] [address] Breaker Up Machine Operator: Charles He MD Platelet mean volume (Bld) [Entitic vol] 10.4 fL Normal 8.1-13.5 [facility] Comment on above: Performed By: #### C P, CBC #### [facility] [address] [facility] [place] [address] Breaker Up Machine Operator: Charles He MD Platelets (Bld) [#/Vol] 218 10*3/uL Normal 138-453 [facility] Comment on above: Performed By: #### C P, CBC #### [facility] [place] [address] Breaker Up Machine Operator: Charles He MD RBC (Bld) [#/Vol] 4.35 10*6/uL Normal 3.95-5.11 [facility] Comment on above: Performed By: #### C P, CBC #### [facility] [place] [address] Breaker Up Machine Operator: Charles He MD WBC (Bld) [#/Vol] 7.2 10*3/uL Normal 3.5-11.3 [facility] Comment on above: Performed By: #### C P, CBC #### [facility] [address] [place] [address]. [place] [address] Breaker Up Machine Operator: Charles He MD Comp Metabolic Profon 2023 Albumin [Mass/Vol] 3.7 g/dL Normal 3.5-5.2 [facility] Comment on above: Performed By: #### C P, CBC #### [facility] [place] [address] Breaker Up Machine Operator: Charles He MD Alkaline Phos 63 U/L Normal 35-104 [facility] Comment on above: Performed By: #### C P, CBC #### [facility] [address] [place] [address] Breaker Up Machine Operator: Charles He MD ALT [Catalytic activity/Vol] 6 U/L Normal 5-33 [facility] Comment on above: Performed By: #### C P, CBC #### [facility] [address] [place] [address] Breaker Up Machine Operator: Charles He MD Anion gap [Moles/Vol] 8 mmol/L Low 9-17 [facility] Comment on above: Performed By: #### C P, CBC #### [facility] [address] [place] [address] Breaker Up Machine Operator: Charles He MD AST [Catalytic activity/Vol] 7 U/L Normal <32 [facility] Comment on above: Performed By: #### C P, CBC #### [facility] [address] [place] [address] Breaker Up Machine Operator: Charles He MD Bilirubin [Mass/Vol] 0.1 mg/dL Low 0.3-1.2 [facility] Comment on above: Performed By: #### C P, CBC #### [facility] [address] [place] [address] Breaker Up Machine Operator: Charles He MD BUN/CRE Ratio 28 High 9-20 [facility] Comment on above: Performed By: #### C P, CBC #### [facility] [address] [place] [address] Breaker Up Machine Operator: Charles He MD Calcium [Mass/Vol] 8.9 mg/dL Normal 8.6-10.4 [facility] Comment on above: Performed By: #### C P, CBC #### [facility] [place] [address] Breaker Up Machine Operator: Charles He MD Chloride [Moles/Vol] 107 mmol/L Normal 98-107 [facility] Comment on above: Performed By: #### C P, CBC #### [facility] [address] [facility] [place] [address] Breaker Up Machine Operator: Charles He MD CO2 [Moles/Vol] 24 mmol/L Normal 20-31 [facility] Comment on above: Performed By: #### C P, CBC #### [facility] [address] [facility] [place] [address] Breaker Up Machine Operator: Charles He MD Creatinine [Mass/Vol] 0.8 mg/dL Normal 0.5-0.9 [facility] Comment on above: Performed By: #### C P, CBC #### [facility] [address] [place] [address]. [place] [address] Breaker Up Machine Operator: Charles He MD GFR/1.73 sq M.predicted among non-blacks MDRD (S/P/Bld) [Vol rate/Area] mL/min/{1.73_m2} Normal >60 [facility] Comment on above: Result Comment: These results are not intended for use in patients <18 years of age. eGFR results are calculated without a race factor using the 2020 CKD-EPI equation. Careful clinical correlation is recommended, particularly when comparing to results calculated using previous equations. The CKD-EPI equation is less accurate in patients with extremes of muscle mass, extra-renal metabolism of creatine, excessive creatine ingestion, or following therapy that affects renal tubular secretion. Performed By: #### C P, CBC #### [facility] [address] [facility] [place] [address] Breaker Up Machine Operator: Charles He MD Glucose [Mass/Vol] 126 mg/dL High 70-99 [facility] Comment on above: Performed By: #### C P, CBC #### [facility] [address] [facility] [place] [address] Breaker Up Machine Operator: Charles He MD Potassium [Moles/Vol] 3.9 mmol/L Normal 3.7-5.3 [facility] Comment on above: Performed By: #### C P, CBC #### [facility] [address] [facility] [place] [address] Breaker Up Machine Operator: Charles He MD Protein [Mass/Vol] 6.5 g/dL Normal 6.4-8.3 [facility] Comment on above: Performed By: #### C P, CBC #### [facility] [address] [facility] [place] [address] Breaker Up Machine Operator: Charles He MD Sodium [Moles/Vol] 139 mmol/L Normal 135-144 [facility] Comment on above: Performed By: #### C P, CBC #### [facility] [address] [facility] [place] [address] Breaker Up Machine Operator: Charles He MD Urea nitrogen [Mass/Vol] 22 mg/dL High 6-20 [facility] Comment on above: Performed By: #### C P, CBC #### [facility] [address] [place] [address]. [place] [address] Breaker Up Machine Operator: Charles He MD CASE MANAGEMon 09-27-2023 CASE MANAGEM HNO ID: [id number] Author: BENY MALIK RN Service: ? Author Type: Registered Nurse Type: Care Mgt Progress Note Filed: 09/27/2023 11:35 Note Text: CARE MANAGEMENT DISCHARGE NOTE SERVICE DATE: September 27, 2023 SERVICE TIME: 11:32 AM Admission Date: 09/20/2023 LOS: 7 days Discharge Arrangement Discharge Arrangement: Acute Rehabilitation Facility Services Arranged Medical Services: Other: See Comment (AR) Caregiver Assessment Caregiver is ready, willing and able to meet the patient's needs as recommended by the inter-professional team: No Caregiver needed Transportation Arrangements Transportation Arrangements: Ambulance Transportation Agency and Phone #:: [facility] [phone] Date of Trip: 09/27/23 Time of Trip: 1200 Type of Service: BLS Non-emergency Is Patient Medicaid Pending?: No Was transportation financial coverage discussed with family?: No Econometrician Location: Main [place] Destination: [place] [address] Financial Care Management Responsibility: None Handoff Communication: Handoff to: Other Caregiver Other Caregiver Name/Phone: [facility] Additional Information: N/A Discharge Information Row Name Admission (Current) from 09/20/2023 in [facility] Rehab Facility Agency [facility] Patient will discharge today to [facility]. BLS transport scheduled for 12pm with MMT - Trip# [id number]. DC packet completed by TRACK PRODUCTION ENGINEER's and placed with patient's green chart. Report number sent to bedside RN via [employer] chat. Patient was updated on DC plan,and states she has the contact information for the rehab facility. SIGNATURE: Beny Malik RN PATIENT NAME: Ladi Bernstein DATE: September 27, 2023 TIME: 11:32 AM CONTACT #: [phone] [facility] CNDSon 09-27-2023 [facility] HNO ID: [id number] Author: JESSIKA GOULD MD Service: Neurology General Author Type: Physician Type: Discharge Summary Filed: 09/27/2023 11:53 Note Text: DISCHARGE SUMMARY NEUROLOGY PATIENT NAME: Ladi Bernstein ADMISSION DATE: 09/20/2023 DISCHARGE DATE: 09/27/2023 ATTENDING: Klaus Stevenson MD Code Status: Full Code PCP: No primary care provider on file. Highest Readmission Risk Score: 12 The 30 day readmissions risk score is derived from an internally validated risk model which evaluates patient level characteristics, utilization history, medication orders and lab results up until the day of discharge. Patients with a score of 40 or above are considered highest risk for readmission. Specific patient level drivers will be listed at the bottom of the summary. DIAGNOSIS: Principal Problem: Transverse myelitis (HCC) (POA: Yes) Active Problems: Nicotine use disorder, F17.2 (POA: Yes) Obesity, Class II, BMI 35-39.9 (POA: Yes) ADHD (POA: Yes) Neuropathic pain (POA: Yes) Alteration in self-care ability (POA: Unknown) Impaired mobility (POA: Unknown) At risk for falls (POA: Unknown) Resolved Problems: Vasovagal episode (POA: Unknown) Ladi Bernstein is a 23 year old female with ADHD, depression and history of relapsing cervical myelopathy. She presented from [facility] for relapsing generalized weakness after , pain, and ascending sensory changes. She presented in 08/2022 with subacute myelopathy with imaging demonstrating a lesion in her C-spine. These symptoms improved during and in 08/2023 started to have pain and ascending numbness and weakness. She was treated with 3 days of IV steroids without improvement. Repeat MRI C spine now with findings concerning for an expansile lesion in the same location as previously non-expansile lesion which is most concerning for demyelinating lesion. She was admitted to general neurology service for further evaluation and management. Her neurologic exam with relatively strong however largely limited by pain, sensory changes up to waist elbow, symmetric reflexes, with functional overlay. Given unclear nature of condition and lack of response to IV steroids it was discussed with Dr. Holloway the plan for therapy, pain control, and imaging surveillance. Her pain regimen was optimized to Lyrica 150 mg BID, Baclofen 5 mg TID, Nortriptyline 10 -> 20 mg QHS. PT and OT skilled her for acute rehab. She was discharged to acute rehab in stable condition. Transitions of Care Critical Issues: SPECIALIST FOLLOW-UP: [facility] TURCIOS MEDICATION CHANGES: Pain regimen see above LABS AND PROCEDURES PENDING AT DISCHARGE: Test Results Not Yet Available from This Hospitalization: Please Review at Your Follow Up Appointment Order Current Status COPPER, SERUM/PLASMA FREE In process OLIGOCLONAL BAND CSF In process VITAMIN B7 (BIOTIN) In process FUNGAL CSF CULT/CAD Preliminary result -CSF (12/09/2022): RBC 0, WBC 10 [lymphocytic], Glucose 64, Protein 15.3, IgG index 2.5, OCBs not done -MRI brain w/wo (09/07/2023): No clear intracranial WM lesions. 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 No thoracic cord lesions. No GdE. Per OSH report, in comparison to 10/15/2022 lesions similar in appearance but slightly larger and further expansion. -CSF (09/20): 366R, 12N (corrected 11.5), 50P, 67G, Index 1.22, HSV-, VDRL-, Lyme-, cytology negative --[place] myelopathy panel pending -Nutritional/Metabolic: B12 495, homocystine 8.1, ceruloplasmin 31, VitEa 14.6, VitEg 2.1, Zn 65, VitB1 142, B6 38, B3 71 -Inflammatory: CRP <0.3, ESR 15, CANDY- -Infectious: Syphilis negative, HIV-, Lyme-, Crypto Ag- -CT-C/A/P (09/19): no e/o occult malignancy, small (likely reactive) thoracic LN -PET-CT (09/22): no e/o occult malignancy, small (likely reactive) neck/cervical LN HOSPITAL COURSE: No notes on file OPERATIONS DURING HOSPITALIZATION: None PROCEDURES DURING HOSPITALIZATION: No procedures performed CONSULTING TEAMS DURING HOSPITALIZATION: None Treatment Team: Attending Provider: Klaus Stevenson MD PATIENT CONDITION AT DISCHARGE: Stable DISCHARGE DISPOSITION: Home with Self Care PHYSICAL EXAM: BP 129/53 Pulse 64 Temp 36.7 ?C (98.1 ?F) (Oral) Resp 16 Ht 162.6 cm (5' 4 ) Wt 92.5 kg (204 lb) LMP 05/27/2017 SpO2 100% BMI 35.02 kg/m? Mental Status: Alert, oriented to person, place and time and Follows commands. Cranial Nerves: PERRL, visual vernon intact to confrontation, extraocular movements intact, facial sensation intact, face symmetric, no facial droop or ptosis, hearing intact to finger rub bilaterally, no dysarthria, palate elevate symmetrically, tongue protrudes midline, and shoulder shrug intact and symmetric Motor: Diffuse lower tone. Significant functional overlay in LE testing with give-way weakness. Sandra's sign + Lher (more content not included)... Normal [facility] 09-27-2023 NUTRITION HNO ID: [id number] Author: KIYA DENG DTR Service: Nutrition Therapy Author Type: Order To Delivery Supervisor Type: Nutrition Filed: 09/27/2023 13:42 Note Text: NUTRITION THERAPY BALLROOM DANCE INSTRUCTOR NOTE SERVICE DATE: 09/27/2023 SERVICE TIME: 905 Visit Type: Length of Stay Evaluation Goals Met: Met (The patient states she has been eating fine. Her intakes have noted improvement everyday. Snancks and nutritional supplements were declined. Will continue to monitor for any changes in nutritional status.) [facility] Assessment Malnutrition Score: 0 Nutrition Intake: Diet Orders (From admission, onward) Start Ordered 09/22/23 1215 DIET REGULAR START NOW 09/22/23 1204 Average Daily Calorie Intake (kcal): 1668 kcal Average Daily Protein Intake (gm): 61 gm Average intake over: 3 days Appetite: Good GI Symptoms: None Anthropometrics: Body mass index is 35.02 kg/m?. Usual Weight: 92.5 kg (204 lb) Loss of lean body mass/visual muscle wasting: No Weight Change: Stable Food Preferences: None Allergies: No food allergies MNT Billing: $ Routine Care : 1-15 minutes SIGNATURE: Kiya Deng DTR PATIENT NAME: Ladi Bernstein DATE: September 27, 2023 TIME: 1:42 PM Normal [facility] THERAPY NTon 09-27-2023 THERAPY NT HNO ID: [id number] Author: JESICA MG OT/L Service: Occupational Therapy Author Type: Occupational Therapist Type: Therapy (PT/OT/Speech/Resp) Filed: 09/27/2023 11:19 Note Text: Occupational Therapy Treatment Summary SERVICE DATE: 09/27/2023 SERVICE TIME: 1011 to 1055 ROOM: [place] [address] OT 6 Clicks Score: 20 DISCHARGE RECOMMENDATIONS Acute Rehab Recommended Discharge Disposition Comments: - Recommended Discharge Disposition Due to: Patient requires an active, intensive rehabilitation therapy program due to:, ADL impairment resulting in caregiver dependence, decline in functional status requiring daily skilled care, ongoing intervention of multiple therapy disciplines Anticipated Discharge Needs: Physical Assist at Home Physical Assist at Home for: Cleaning, Laundry, Meals, Medication Management, Self Care, Stairs, Ambulation, Shopping, Transportation Recommended Discharge Equipment: Extended tub bench ASSESSMENT Response to Therapy Interventions: Good Participation in Activities Pt requiring increased time for all functional mobility and ADL task completion 2/2 pain and low activity tolerance. Verbalizes understanding of energy conservation techniques though will benefit from continued education to ensure good carryover. Pt demonstrating steady progress towards OT goals, requiring less assistance with ADLs this date. Pt reporting dizziness at end of session, vitals monitored and stable throughout. Reamins appropriate for AR upon d/c to maximize independence and safety with I/ADLs. 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 Relevant Past Medical History: ADHD and depression HOME LIVING Patient Lives With: Significant Other, Family (fiance) Assistance Available: 24-Hour Entry To Home: Stairs (2nd floor apartment) Number Of Stairs To Bed/Bath: One level once in apartment Tub/Shower Type: tub shower Laundry: pt completes, can assist Equipment Owned: Grab Bars- Shower, Rollator PRIOR FUNCTIONAL LEVEL Within Functional Limits Prior to recent flair up pt was IND, no AD. Recently pt has been receiving help for I/ADLs, states she is able to complete ADLs on her own but it is painful/fatiguing so she recieves help. Very sensitive to heat. Not able to participate in caring for her infant son, states she can hold him for ~10 minutes at a time. -falls, using rollator recently Baseline Cognition: Oriented to self, Oriented to place, Oriented to time, Oriented to situation SUBJECTIVE I'm feeling really dizzy now COGNITION Responsiveness: Alert, Awake Follows Commands: 3-step Commands Cog 6 Start of Session Total Points (Max Score = 24): 24 (09/27/23) Cog 6 End of Session Total Points (Max Score = 24): 24 (09/27/23) 4AT Score: 0 (09/27/23) Delirium Positive/Negative: Negative (09/27/23) THERAPY DIAGNOSIS Decreased activities of daily living (ADL), Reduced mobility-other, Muscle Weakness (generalized) TREATMENT INTERVENTIONS Self Skilled Nursing Management ([address]0501) Timed Code Treatment (minutes): 44 Skilled Treatment Time (minutes): 44 TRAINING AND EDUCATION PROVIDED Activity Adaptation/Compensatory Strategies, Assistive Device Use, Benefits of In-Hospital Mobility, Bed Mobility, Discharge Planning, Disease Specific Education, Energy Conservation, Expected Functional Level, Functional Mobility Involving ADLs, Grooming Tasks, Lower Extremity Dressing, Lower Extremity Bathing, Insight into Deficits, Standing Balance to Improve [place] with ADLs/Self-Care, Transfer - Bed to Chair, Transfer - Sit to Stand, Upper Extremity Dressing THERAPEUTIC SKILLS USED Activity Dosing, Assessment of Tolerance Including Vitals Response to Activity, Cuing Verbal, Physical Assist, Therapeutic Use of Self, Task Analysis Learning, Teach-Back for Education FUNCTIONAL STATUS Activities of Daily Living Assist Level Additional Information Feeding Set Up Grooming Set Up Bathing Upper Body Supervision Bathing Lower Body Minimal Assistance Dressing Upper Body Supervision Dressing Lower Body Moderate Assistance Toileting Minimal Assistance Mobility Assist Level Additional Information Bed Mobility Rolling: Minimal Assistance Supine To Sit: Stand By Assistance (increased time) Sit To Supine: Minimal Assistance Sit to Stand Contact Guard Assistance Stand to Sit Minimal Assistance Bed to Chair Minimal Assistance Bed To Chair Transfer Type: Stand Pivot Bed To Chair Transfer Equipment: Wheeled Walker Toilet/Commode Shower Functional Mobility Contact Guard Assistance Functional Mobility Device: Wheeled Walker GOALS Patient will demonstrate progress to optimize self-care activities, cognitive and/or coping to maximize function upon discharge. Progress Toward Goals: Progressing as expected Rehab Potential: Good PLAN OT Frequency: 4 Times Per Week (more content not included)... Normal [facility]NAGEM HNO ID: [id number] Author: ?, ?, ? Service: ? Author Type: ? Type: Care Mgt Progress Note Filed: 09/27/2023 09:01 Note Text: CARE MANAGEMENT PROGRESS NOTE SERVICE DATE: 09/26/2023 SERVICE TIME: 1:38 PM LOS: 6 days Discharge packet is incomplete and on pt's green chart. AVS, DC Summary need to be added to packet. SIGNATURE: Rubi Mustafa [facility] PATIENT NAME: Ladi Bernstein DATE: September 26, 2023 TIME: 1:38 PM PAGER/CONTACT #: [phone] [facility] CASE MANAGEM HNO ID: [id number] Author: BENY MALIK RN Service: ? Author Type: Registered Nurse Type: Care Mgt Progress Note Filed: 09/26/2023 12:41 Note Text: CARE MANAGEMENT PROGRESS NOTE SERVICE DATE: 09/26/2023 SERVICE TIME: 12:36 PM LOS: 6 days CM Update Skilled for AR with [facility] accepting. Precert is pending. BLS transport scheduled for tomorrow; 09/26 at 12pm with MMT - Trip# [id number], pending precert approval. [facility]'s tasked to complete a DC packet. Patient updated. CM will follow. SIGNATURE: Beny Malik RN PATIENT NAME: Ladi Bernstein DATE: September 26, 2023 TIME: 12:36 PM PAGER/CONTACT #: [phone] Normal [facility] CBC panel Auto (Bld)on 09-25 Erythrocyte distribution width (RBC) [Ratio] 14.9 % Normal 11.5-15.0 [facility] Comment on above: Order Comment: Speci men Type: BLOOD SPECIMEN Ordering Facility: [facility] Address: [address] [place] [address] Performed By: #### 1 3965-9 #### [facility] CLIA [id number] [address] [place] [address] [place] Hematocrit (Bld) [Volume fraction] 39.2 % Normal 36.0-46.0 [facility] Comment on above: Order Comment: Speci men Type: BLOOD SPECIMEN Ordering Facility: [facility] Address: [address] [place] [address] Performed By: #### 1 3965-9 #### [facility] CLIA [id number] [address] [place] [address] [place] Hemoglobin (Bld) [Mass/Vol] 12.8 g/dL Normal 11.5-15.5 [facility] Comment on above: Order Comment: Speci men Type: BLOOD SPECIMEN Ordering Facility: [facility] Address: [address] [place] [address] Performed By: #### 1 3965-9 #### [facility] CLIA [id number] [address] [place] [address] [place] MCH (RBC) [Entitic mass] 28.1 pg Normal 26.0-34.0 [facility] Comment on above: Order Comment: Speci men Type: BLOOD SPECIMEN Ordering Facility: [facility] Address: [address] [place] [address] Performed By: #### 1 3965-9 #### [facility] CLIA [id number] [address] [place] [address] [place] MCHC (RBC) [Mass/Vol] 32.7 g/dL Normal 30.5-36.0 [facility] Comment on above: Order Comment: Speci men Type: BLOOD SPECIMEN Ordering Facility: [facility] Address: [address] [place] [address] Performed By: #### 1 3965-9 #### [facility] CLIA [id number] [address] [place] [address] [place] MCV (RBC) [Entitic vol] 86.0 fL Normal 80.0-100.0 [facility] Comment on above: Order Comment: Speci men Type: BLOOD SPECIMEN Ordering Facility: [facility] Address: [address] [place] [address] Performed By: #### 1 3965-9 #### [facility] CLIA [id number] [address] [place] [address] [place] Nucleated RBC (Bld) [#/Vol] 10*3/uL Normal <0.01 [facility] Comment on above: Order Comment: Speci men Type: BLOOD SPECIMEN Ordering Facility: [facility] Address: [address] [place] [address] Performed By: #### 1 3965-9 #### [facility] CLIA [id number] [address] [place] [address] [place] Platelet mean volume (Bld) [Entitic vol] 10.3 fL Normal 9.0-12.7 [facility] Comment on above: Order Comment: Speci men Type: BLOOD SPECIMEN Ordering Facility: [facility] Address: [address] [place] [address] Performed By: #### 1 3965-9 #### [facility] CLIA [id number] [address] [place] [address] [place] Platelets (Bld) [#/Vol] 237 10*3/uL Normal 150-400 [facility] Comment on above: Order Comment: Speci men Type: BLOOD SPECIMEN Ordering Facility: [facility] Address: [address] [place] [address] Performed By: #### 1 3965-9 #### [facility] CLIA [id number] [address] [place] [address] [place] RBC (Bld) [#/Vol] 4.56 10*6/uL Normal 3.90-5.20 [facility] Comment on above: Order Comment: Speci men Type: BLOOD SPECIMEN Ordering Facility: [facility] Address: [address] [place] [address] Performed By: #### 1 3965-9 #### [facility] CLIA [id number] [address] [place] [address] [place] WBC (Bld) [#/Vol] 7.37 10*3/uL Normal 3.70-11.00 [facility] Comment on above: Order Comment: Speci men Type: BLOOD SPECIMEN Ordering Facility: [facility] Address: [address] [place] [address] Performed By: #### 1 3965-9 #### [facility] CLIA [id number] [address] [place] [address] [place] CNCOon 09-26-2023 CNCO Letter Text Normal [facility] CONSULTon 09-26-2023 CONSULT HNO ID: [id number] Author: HILDA OROZCO PA-C Service: Physical Medicine AND Rehabilitation Author Type: Physician Shellfish Harvester Type: Consults Filed: 09/26/2023 09:05 Note Text: PMANDR consult order received today. Patient seen on 5/3 for PMANDR consult with recommendations for acute rehab. Please see consult for details. Please call with any questions. Current location: [id number]/[id number] Hilda Orozco PA-C Physical Medicine and Rehabilitation pager [phone] Normal [facility] Renal function 2000 panelon 09-26-2023 Albumin [Mass/Vol] 4.0 g/dL Normal 3.9-4.9 [facility] Comment on above: Order Comment: Speci men Type: BLOOD SPECIMENOrdering Facility: [facility] Address: [address] [place] [address] Performed By: #### 2 4362-6 ####[facility] [id number] [place] [address] [place] Anion gap [Moles/Vol] 9 mmol/L Normal 9-18 [facility] Comment on above: Order Comment: Speci men Type: BLOOD SPECIMENOrdering Facility: [facility] Address: [address] [place] [address] Performed By: #### 2 4362-6 ####[facility] [id number] [place] [address] [place] Calcium [Mass/Vol] 9.1 mg/dL Normal 8.5-10.2 [facility] Comment on above: Order Comment: Speci men Type: BLOOD SPECIMENOrdering Facility: [facility] Address: [address] [place] [address] Performed By: #### 2 4362-6 ####[facility] [id number] [place] [address] [place] Chloride [Moles/Vol] 106 mmol/L High 97-105 [facility] Comment on above: Order Comment: Speci men Type: BLOOD SPECIMENOrdering Facility: [facility] Address: [address] [place] [address] Performed By: #### 2 4362-6 ####[facility] [id number] [place] [address] [place] CO2 [Moles/Vol] 24 mmol/L Normal 22-30 [facility] Comment on above: Order Comment: Speci men Type: BLOOD SPECIMENOrdering Facility: [facility] Address: [address] [place] [address] Performed By: #### 2 4362-6 ####[facility] [id number] [place] [address] [place] Creatinine [Mass/Vol] 0.77 mg/dL Normal 0.58-0.96 [facility] Comment on above: Order Comment: Speci men Type: BLOOD SPECIMENOrdering Facility: [facility] Address: [address] [place] [address] Performed By: #### 2 4362-6 ####[facility]IA [id number] [address] STATES OF [facility] Creatinine and Glomerular filtration rate.predicted panel (S/P/Bld) 110 mL/min/1.73m??? Normal >=60 [facility] Comment on above: Order Comment: Speci men Type: BLOOD SPECIMENOrdering Facility: [facility] Address: [address] [place] [address] Result Comment: Gisselle mated Glomerular Filtration Rate (eGFR) is calculated using the 2020 CKD-EPI creatinine equation. This equation utilizes serum creatinine, sex, and age as parameters. The creatinine assay has traceable calibration to isotope dilution-mass spectrometry. Refer to KDIGO guidelines for clinical interpretation. In patients with unstable renal function, e.g. those with acute kidney injury, the eGFR may not accurately reflect actual GFR. Performed By: #### 2 4362-6 ####[facility] [id number] [place] [address] [place] Glucose [Mass/Vol] 121 mg/dL High 74-99 [facility] Comment on above: Order Comment: Speci men Type: BLOOD SPECIMENOrdering Facility: [facility] Address: [address] [place] [address] Result Comment: The [place] [employer] (ADA) provides guidance for cutoff values for fasting glucose and random glucose. The ADA defines fasting as no caloric intake for at least 8 hours. Fasting plasma glucose results between 100 to 125 mg/dL indicate increased risk for diabetes (prediabetes). Fasting plasma glucose results greater than or equal to 126 mg/dL meet the criteria for diagnosis of diabetes. In the absence of unequivocal hyperglycemia, results should be confirmed by repeat testing. In a patient with classic symptoms of hyperglycemia or hyperglycemic crisis, random plasma glucose results greater than or equal to 200 mg/dL meet the criteria for diagnosis of diabetes. Reference: Standards of Medical Care in Diabetes 2016, [place] [employer]. Diabetes Care. 2016.39(Suppl 1). Performed By: #### 2 4362-6 ####[facility] [id number] [place] [address] [place] Phosphate [Mass/Vol] 4.0 mg/dL Normal 2.7-4.8 [facility] Comment on above: Order Comment: Speci men Type: BLOOD SPECIMENOrdering Facility: [facility] Address: [address] [place] [address] Performed By: #### 2 4362-6 ####[facility] [id number] [place] [address] [place] Potassium [Moles/Vol] 4.4 mmol/L Normal 3.7-5.1 [facility] Comment on above: Order Comment: Speci men Type: BLOOD SPECIMENOrdering Facility: [facility] Address: [address] [place] [address] Performed By: #### 2 4362-6 ####[facility]IA [id number] [place] [address] [place] Sodium [Moles/Vol] 139 mmol/L Normal 136-144 [facility] Comment on above: Order Comment: Speci men Type: BLOOD SPECIMENOrdering Facility: [facility] Address: [address] [place] [address] Performed By: #### 2 4362-6 ####[facility]CLIA [id number] [place] [address] [place] Urea nitrogen [Mass/Vol] 17 mg/dL Normal 7-21 [facility] Comment on above: Order Comment: Speci men Type: BLOOD SPECIMENOrdering Facility: [facility] Address: [address] [place] [address] Performed By: #### 2 4362-6 ####[facility]IA [id number] [place] [address] [place] THERAPY NTon 09-26-2023 THERAPY NT HNO ID: [id number] Author: LADI PELAEZ, PT, DPT Service: ? Author Type: Physical Therapist Type: Therapy (PT/OT/Speech/Resp) Filed: 09/26/2023 15:17 Note Text: Physical Therapy Treatment Summary SERVICE DATE: 09/26/2023 SERVICE TIME: 1433 to 1512 ROOM: [place] [address] PT 6 Clicks Score: 14 DISCHARGE RECOMMENDATIONS Acute Rehab Recommended Discharge Disposition Comments: To address deficits to strength, balance, and endurance. Significant gait training needs noted with high risk for falls. Recommended Discharge Disposition Due to: Patient requires an active, intensive rehabilitation therapy program due to:, ADL impairment resulting in caregiver dependence, anticipate community discharge/previous community dweller, caregiver training needs, coordination deficits, decline in functional status requiring daily skilled care, high level balance deficits, ongoing intervention of multiple therapy disciplines, poor trunk control ASSESSMENT Response to Therapy Interventions: Good Participation in Activities, Pain, Requires Additional Time to Complete Activities Pt continues to be highly motivated to participate in therapy session but limited due to significant increase in pain and numbness/tingling with upright mobility. Pt also notes increased dizziness, VSS throughout. Pt only able to tolerate very short distances this date, continues to have significant gait deviations as noted in mobility grid. Pt would benefit from skilled PT in [place] prior to d/c home. 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 Relevant Past Medical History: ADHD and depression HOME LIVING Patient Lives With: Significant Other, Family (fiance) Assistance Available: 24-Hour Entry To Home: Stairs (2nd floor apartment) Number Of Stairs To Bed/Bath: One level once in apartment Tub/Shower Type: tub shower Laundry: pt completes, can assist Equipment Owned: Grab Bars- Shower, Rollator PRIOR FUNCTIONAL LEVEL Within Functional Limits Prior to recent flair up pt was IND, no AD. Recently pt has been receiving help for I/ADLs, states she is able to complete ADLs on her own but it is painful/fatiguing so she recieves help. Very sensitive to heat. Not able to participate in caring for her son, states she can hold him for ~10 minutes at a time. -falls, using rollator recently SUBJECTIVE I want to try if I can THERAPY DIAGNOSIS Reduced mobility-other TREATMENT INTERVENTIONS Therapeutic Activity (48245), Gait Training (07990) Timed Code Treatment (minutes): 39 Skilled Treatment Time (minutes): 39 TRAINING AND EDUCATION PROVIDED Advanced Balance Activities, Anatomy and Impact on Deficits, Assistive Device Use, Bed Mobility, Benefits of In-Hospital Mobility, Discharge Planning, Disease Specific Education, Equipment, Expected Functional Level, Falls Prevention, Gait Pattern, Reduction of Deviations, Patient Exercise/Therapy Program Support Needs, Positioning, Precautions/Restrictions , Sitting Balance, Role of Physical Therapy, Standing Balance, Transfers, Treatment Protocol THERAPEUTIC SKILLS USED Activity Dosing, Assessment of Tolerance Including Vitals Response to Activity, Cues for Sequencing/Proper Technique for Activity, Cuing Tactile, Cuing Verbal, Movement Facilitation, Physical Assist, Teach-Back for Education, Proprioceptive Input, Muscle Activation Facilitation FUNCTIONAL STATUS Bed Mobility Rolling: Contact Guard Assistance Supine To Sit: Contact Guard Assistance Sit to Supine: Moderate Assistance Scooting: Contact Guard Assistance Transfers Sit To Stand: Moderate Assistance Stand To Sit: Moderate Assistance Bed to Chair Moderate Assistance Bed To Chair Transfer Type: Stepping Bed To Chair Transfer Equipment: Wheeled Walker Gait Moderate Assistance Tremoring throughout and reporting increased neck pain and dizziness. Vitals montiored and WNL. Poor weight shifting and toe clearance bilaterally with shuffling pattern and absent heel strike. Gait Device: Wheeled Walker General Deviations/Observations: Malena decreased, Shuffling Gait, Step length decreased, UE weight bearing on assistive device excessive, Flexed trunk posture, Improper distancing from assistive device, Difficulty changing direction/turning Gait Distance (feet): 10', 5' Gait Deviations Right Lower Extremity: Push off during terminal stance decreased, Heel strike during initial stance decreased Gait Deviations Left Lower Extremity: Heel strike during initial stance decreased, Push off during terminal stance decreased Stairs GOALS Patient will demonstrate progress to optimize functional mobility, maximize activity tolerance and endurance to maximize function upon discharge. Rehab Potential: Excellent Progress Toward Goals: Progressing slower than expected PLAN PT Frequency: 5 Times Per Wee (more content not included)... Normal [facility] THERAPY NT HNO ID: [id number] Author: JESICA MG, OT/L Service: Occupational Therapy Author Type: Occupational Therapist Type: Therapy (PT/OT/Speech/Resp) Filed: 09/26/2023 12:12 Note Text: Occupational Therapy Treatment Summary SERVICE DATE: 09/26/2023 SERVICE TIME: 1154 to 1202 ROOM: [place] [address] OT 6 Clicks Score: 19 DISCHARGE RECOMMENDATIONS Acute Rehab Recommended Discharge Disposition Comments: - Recommended Discharge Disposition Due to: Patient requires an active, intensive rehabilitation therapy program due to:, ADL impairment resulting in caregiver dependence, decline in functional status requiring daily skilled care, ongoing intervention of multiple therapy disciplines Anticipated Discharge Needs: Physical Assist at Home Physical Assist at Home for: Cleaning, Laundry, Meals, Medication Management, Self Care, Stairs, Ambulation, Shopping, Transportation Recommended Discharge Equipment: Extended tub bench ASSESSMENT Response to Therapy Interventions: Good Participation in Activities Pt with soiled sheets upon OT arrival, requiring assistance with rolling and chelsi care this date. Bilateral LE tremoring noted following bed mobility, quickly subsided. RN aware. Session limited by pt phone call. Continues to be appropriate for [place] upon d/c to maximize independence with I/ADLs. 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 Relevant Past Medical History: ADHD and depression HOME LIVING Patient Lives With: Significant Other, Family (fiance) Assistance Available: 24-Hour Entry To Home: Stairs (2nd floor apartment) Number Of Stairs To Bed/Bath: One level once in apartment Tub/Shower Type: tub shower Laundry: pt completes, can assist Equipment Owned: Grab Bars- Shower, Rollator PRIOR FUNCTIONAL LEVEL Within Functional Limits Prior to recent flair up pt was IND, no AD. Recently pt has been receiving help for I/ADLs, states she is able to complete ADLs on her own but it is painful/fatiguing so she recieves help. Very sensitive to heat. Not able to participate in caring for her infant son, states she can hold him for ~10 minutes at a time. -falls, using rollator recently Baseline Cognition: Oriented to self, Oriented to place, Oriented to time, Oriented to situation SUBJECTIVE I just had something happen that I need help with COGNITION Responsiveness: Alert, Awake Follows Commands: 3-step Commands Cog 6 Start of Session Total Points (Max Score = 24): 24 (09/26/23) Cog 6 End of Session Total Points (Max Score = 24): 24 (09/26/23) 4AT Score: 0 (09/26/23) Delirium Positive/Negative: Negative (09/26/23) THERAPY DIAGNOSIS Decreased activities of daily living (ADL), Reduced mobility-other, Muscle Weakness (generalized) TREATMENT INTERVENTIONS Self Skilled Nursing Management (10773) Timed Code Treatment (minutes): 8 Skilled Treatment Time (minutes): 8 TRAINING AND EDUCATION PROVIDED Bed Mobility, Toileting , Benefits of In-Hospital Mobility, Functional Mobility Involving ADLs THERAPEUTIC SKILLS USED Activity Dosing, Assessment of Tolerance Including Vitals Response to Activity, Cuing Verbal, Physical Assist, Therapeutic Use of Self FUNCTIONAL STATUS Activities of Daily Living Assist Level Additional Information Feeding Set Up Grooming Set Up Bathing Upper Body Supervision Bathing Lower Body Moderate Assistance Dressing Upper Body Stand By Assistance Dressing Lower Body Moderate Assistance Toileting Minimal Assistance Mobility Assist Level Additional Information Bed Mobility Rolling: Minimal Assistance Supine To Sit: Stand By Assistance Sit To Supine: Minimal Assistance Sit to Stand Contact Guard Assistance Stand to Sit Contact Guard Assistance Bed to Chair Toilet/Commode Shower Functional Mobility Contact Guard Assistance Functional Mobility Device: Wheeled Walker GOALS Patient will demonstrate progress to optimize self-care activities, cognitive and/or coping to maximize function upon discharge. Progress Toward Goals: Progressing as expected Rehab Potential: Good PLAN OT Frequency: 4 Times Per Week Treatment Interventions: Education, Self Care/Home Management, Energy Conservation Training, Strengthening, Functional Mobility Training, Balance Training, Neuromuscular Re-education, Modalities, Pain Management, Coping Strategy Education Plan for Next Visit: Bed Mobility, Chair/Commode Transfer Training, Coping, Energy Conservation, Standing Tolerance SIGNATURE: Jesica Mg OT/L PATIENT NAME: Ladi Bernstein DATE: September 26, 2023 TIME: 12:11 PM Normal [facility] CBC panel Auto (Bld)on 09-24 Erythrocyte distribution width (RBC) [Ratio] 14.7 % Normal 11.5-15.0 [facility] Comment on above: Order Comment: Speci men Type: CEREBROSPINAL FLUID SPECIMEN Ordering Facility: [facility] Address: [address] [place] [address] Performed By: #### L [id number], 79414-9 #### [facility] CLIA [id number] [address] [place] [address] [place] Hematocrit (Bld) [Volume fraction] 35.3 % Low 36.0-46.0 [facility] Comment on above: Order Comment: Speci men Type: CEREBROSPINAL FLUID SPECIMEN Ordering Facility: [facility] Address: [address] [place] [address] Performed By: #### L [id number], 03014-4 #### [facility] CLIA [id number] [address] [place] [address] [place] Hemoglobin (Bld) [Mass/Vol] 11.7 g/dL Normal 11.5-15.5 [facility] Comment on above: Order Comment: Speci men Type: CEREBROSPINAL FLUID SPECIMEN Ordering Facility: [facility] Address: [address] [place] [address] Performed By: #### L [id number], 91710-5 #### [facility] CLIA [id number] [address] [place] [address] [place] MCH (RBC) [Entitic mass] 28.2 pg Normal 26.0-34.0 [facility] Comment on above: Order Comment: Speci men Type: CEREBROSPINAL FLUID SPECIMEN Ordering Facility: [facility] Address: [address] [place] [address] Performed By: #### L [id number], 62390-7 #### [facility] CLIA [id number] [address] [place] [address] [place] MCHC (RBC) [Mass/Vol] 33.1 g/dL Normal 30.5-36.0 [facility] Comment on above: Order Comment: Speci men Type: CEREBROSPINAL FLUID SPECIMEN Ordering Facility: [facility] Address: [address] [place] [address] Performed By: #### L [id number], 16271-7 #### [facility] CLIA [id number] [address] [place] [address] [place] MCV (RBC) [Entitic vol] 85.1 fL Normal 80.0-100.0 [facility] Comment on above: Order Comment: Speci men Type: CEREBROSPINAL FLUID SPECIMEN Ordering Facility: [facility] Address: [address] [place] [address] Performed By: #### L [id number], 61025-5 #### [facility] CLIA [id number] [address] [place] [address] [place] Nucleated RBC (Bld) [#/Vol] 10*3/uL Normal <0.01 [facility] Comment on above: Order Comment: Speci men Type: CEREBROSPINAL FLUID SPECIMEN Ordering Facility: [facility] Address: [address] [place] [address] Performed By: #### L [id number], 10228-1 #### [facility] CLIA [id number] [address] [place] [address] [place] Platelet mean volume (Bld) [Entitic vol] 10.2 fL Normal 9.0-12.7 [facility] Comment on above: Order Comment: Speci men Type: CEREBROSPINAL FLUID SPECIMEN Ordering Facility: [facility] Address: [address] [place] [address] Performed By: #### L [id number], 21795-2 #### [facility] CLIA [id number] [address] [place] [address] [place] Platelets (Bld) [#/Vol] 247 10*3/uL Normal 150-400 [facility] Comment on above: Order Comment: Speci men Type: CEREBROSPINAL FLUID SPECIMEN Ordering Facility: [facility] Address: [address] [place] [address] Performed By: #### Michelle [id number], 41664-3 #### [facility] CLIA [id number] [address] [place] [address] [place] RBC (Bld) [#/Vol] 4.15 10*6/uL Normal 3.90-5.20 [facility] Comment on above: Order Comment: Speci men Type: CEREBROSPINAL FLUID SPECIMEN Ordering Facility: [facility] Address: [address] [place] [address] Performed By: #### L [id number], 66339-7 #### [facility] CLIA [id number] [address] [place] [address] [place] WBC (Bld) [#/Vol] 7.64 10*3/uL Normal 3.70-11.00 [facility] Comment on above: Order Comment: Speci men Type: CEREBROSPINAL FLUID SPECIMEN Ordering Facility: [facility] Address: [address] [place] [address] Performed By: #### Michelle [id number], 97947-0 #### [facility] CLIA [id number] [address] [place] [address] [place] Magnesium SerPl-mCncon 09-24 Magnesium [Mass/Vol] 1.9 mg/dL Normal 1.7-2.3 [facility] Comment on above: Order Comment: Speci men Type: BLOOD SPECIMEN Ordering Facility: [facility] Address: [address] [place] [address] Performed By: #### 2 4362-6, 14717-9 #### [facility] CLIA [id number] [address] [place] [address] [place] Renal function 2000 panelon 09-25-2023 Albumin [Mass/Vol] 3.6 g/dL Low 3.9-4.9 [facility] Comment on above: Order Comment: Speci men Type: BLOOD SPECIMEN Ordering Facility: [facility] Address: [address] [place] [id number] Performed By: #### 2 4362-6, #### [facility] CLIA [id number] [address] [place], [place] [address] [place] Anion gap [Moles/Vol] 9 mmol/L Normal 9-18 [facility] Comment on above: Order Comment: Speci men Type: BLOOD SPECIMEN Ordering Facility: [facility] Address: [address] [place] [id number] Performed By: #### 2 4362-6, #### [facility] CLIA [id number] [address] [place] [address] [place] Calcium [Mass/Vol] 8.9 mg/dL Normal 8.5-10.2 [facility] Comment on above: Order Comment: Speci men Type: BLOOD SPECIMEN Ordering Facility: [facility] Address: [address] [place], [place] [id number] Performed By: #### 2 4362-6, #### [facility] CLIA [id number] [address] [place], [place] [id number] [place] Chloride [Moles/Vol] 106 mmol/L High 97-105 [facility] Comment on above: Order Comment: Speci men Type: BLOOD SPECIMEN Ordering Facility: [facility] Address: [address] [id number] Performed By: #### 2 4362-6, #### [facility] CLIA [id number] [address] [place], [place] [address] [place] CO2 [Moles/Vol] 24 mmol/L Normal 22-30 [facility] Comment on above: Order Comment: Speci men Type: BLOOD SPECIMEN Ordering Facility: [facility] Address: [address] [place], [place] [address] Performed By: #### 2 4362-6, #### [facility] CLIA [id number] [address] [place] [address] [place] Creatinine [Mass/Vol] 0.80 mg/dL Normal 0.58-0.96 [facility] Comment on above: Order Comment: Specshannan balbuena Type: BLOOD SPECIMEN Ordering Facility: [facility] Address: [address] [place] [address] Performed By: #### 2 4362-6, #### [facility] CLIA [id number] [address] [place] [address] [place] Creatinine and Glomerular filtration rate.predicted panel (S/P/Bld) 105 mL/min/1.73m??? Normal >=60 [facility] Comment on above: Order Comment: Shannan balbuena Type: BLOOD SPECIMEN Ordering Facility: [facility] Address: [address] [place] [address] Result Comment: Gisselle mated Glomerular Filtration Rate (eGFR) is calculated using the 2020 CKD-EPI creatinine equation. This equation utilizes serum creatinine, sex, and age as parameters. The creatinine assay has traceable calibration to isotope dilution-mass spectrometry. Refer to KDIGO guidelines for clinical interpretation. In patients with unstable renal function, e.g. those with acute kidney injury, the eGFR may not accurately reflect actual GFR. Performed By: #### 2 4362-6, #### [facility] CLIA [id number] [address] [place] [address] [place] Glucose [Mass/Vol] 114 mg/dL High 74-99 [facility] Comment on above: Order Comment: Shannan balbuena Type: BLOOD SPECIMEN Ordering Facility: [facility] Address: [address] [place] [address] Result Comment: The [place] [employer] (ADA) provides guidance for cutoff values for fasting glucose and random glucose. The ADA defines fasting as no caloric intake for at least 8 hours. Fasting plasma glucose results between 100 to 125 mg/dL indicate increased risk for diabetes (prediabetes). Fasting plasma glucose results greater than or equal to 126 mg/dL meet the criteria for diagnosis of diabetes. In the absence of unequivocal hyperglycemia, results should be confirmed by repeat testing. In a patient with classic symptoms of hyperglycemia or hyperglycemic crisis, random plasma glucose results greater than or equal to 200 mg/dL meet the criteria for diagnosis of diabetes. Reference: Standards of Medical Care in Diabetes 2016, [place] [employer]. Diabetes Care. 2016.39(Suppl 1). Performed By: #### 2 4362-6, #### [facility] CLIA [id number] [address] [place] [address] [place] Phosphate [Mass/Vol] 5.2 mg/dL High 2.7-4.8 [facility] Comment on above: Order Comment: Speci men Type: BLOOD SPECIMEN Ordering Facility: [facility] Address: [address] [place] [address] Performed By: #### 2 43606-28, #### [facility] CLIA [id number] [address] [place] [address] [place] Potassium [Moles/Vol] 4.1 mmol/L Normal 3.7-5.1 [facility] Comment on above: Order Comment: Allyni men Type: BLOOD SPECIMEN Ordering Facility: [facility] Address: [address] [place] [address] Performed By: #### 2 436-6, #### [facility] CLIA [id number] [address] [place], [place] [address] [place] Sodium [Moles/Vol] 139 mmol/L Normal 136-144 [facility] Comment on above: Order Comment: Speci men Type: BLOOD SPECIMEN Ordering Facility: [facility] Address: [address] [place] [address] Performed By: #### 2 4362-6, #### [facility] CLIA [id number] [address] [place], [place] [address] [place] Urea nitrogen [Mass/Vol] 15 mg/dL Normal 7-21 [facility] Comment on above: Order Comment: Speci men Type: BLOOD SPECIMEN Ordering Facility: [facility] Address: [address] [place] [address] Performed By: #### 2 4362-6, 31700-6 #### [facility] CLIA [id number] [address] [place] [address] [facility] CASE MANAGEMon 09-24-2023 CASE MANAGEM HNO ID: [id number] Author: LUZ KELLEY LSW Service: ? Author Type: Journeyman Powerhouse Operator Type: Care Mgt Progress Note Filed: 09/24/2023 08:01 Note Text: CARE MANAGEMENT PROGRESS NOTE NO WEEKEND DISCHARGE SERVICE DATE: 09/24/2023 SERVICE TIME: 7:59 AM LOS: 4 days Needs Prior to Discharge: To Be Determined;Other: See Comment;Precertification ;Discharge Transportation (Medical clearance, precert, d/c transport arranged) Pt will not dc over the weekend. Anticipate dc TBD, pending precert. Precert initiated Tuesday (09/22). [employer] insurance is not open on the weekend. Average turn around time for [facility] precert on Tuesday's is 64 hours. NEEDS: Medical clearance, precert, d/c transport arranged CM will continue to follow. Please see Treatment Team for Care Management Weekend/Holiday coverage. Please note: Should any case management needs arise over the weekend/holiday, please contact the weekend/holiday CM. Please note, however, that NEW referrals will likely not be able to verified for insurance nor can precerts be initiated over the weekend/holiday d/t unavailability of insurance review and accepting agencies/facilities. SIGNATURE: RAMSES Montes De Oca MSW PATIENT NAME: Ladi Bernstein DATE: September 24, 2023 TIME: 7:59 AM PAGER/CONTACT #: [phone] Normal [facility] CBC panel Auto (Bld)on 09-23 Erythrocyte distribution width (RBC) [Ratio] 15.0 % Normal 11.5-15.0 [facility] Comment on above: Order Comment: Speci men Type: BLOOD SPECIMEN Ordering Facility: [facility] Address: [address] [place] [address] Performed By: #### 3 4528-0 #### [facility] CLIA [id number] [address] [place] [address] [place] Hematocrit (Bld) [Volume fraction] 37.0 % Normal 36.0-46.0 [facility] Comment on above: Order Comment: Speci men Type: BLOOD SPECIMEN Ordering Facility: [facility] Address: [address] [place] [address] Performed By: #### 3 4528-0 #### [facility] CLIA [id number] [address] [place] [address] [place] Hemoglobin (Bld) [Mass/Vol] 12.1 g/dL Normal 11.5-15.5 [facility] Comment on above: Order Comment: Speci men Type: BLOOD SPECIMEN Ordering Facility: [facility] Address: [address] [place] [address] Performed By: #### 3 4528-0 #### [facility] CLIA [id number] [address] [place] [address] [place] MCH (RBC) [Entitic mass] 28.2 pg Normal 26.0-34.0 [facility] Comment on above: Order Comment: Speci men Type: BLOOD SPECIMEN Ordering Facility: [facility] Address: [address] [place] [address] Performed By: #### 3 4528-0 #### [facility] CLIA [id number] [address] [place] [address] [place] MCHC (RBC) [Mass/Vol] 32.7 g/dL Normal 30.5-36.0 [facility] Comment on above: Order Comment: Speci men Type: BLOOD SPECIMEN Ordering Facility: [facility] Address: [address] [place] [address] Performed By: #### 3 4528-0 #### [facility] CLIA [id number] [address] [place] [address] [place] MCV (RBC) [Entitic vol] 86.2 fL Normal 80.0-100.0 [facility] Comment on above: Order Comment: Speci men Type: BLOOD SPECIMEN Ordering Facility: [facility] Address: [address] [place] [address] Performed By: #### 3 4528-0 #### [facility] CLIA [id number] [address] [place] [address] [place] Nucleated RBC (Bld) [#/Vol] 10*3/uL Normal <0.01 [facility] Comment on above: Order Comment: Speci men Type: BLOOD SPECIMEN Ordering Facility: [facility] Address: [address] [place] [address] Performed By: #### 3 4528-0 #### [facility] CLIA [id number] [address] [place] [address] [place] Platelet mean volume (Bld) [Entitic vol] 10.0 fL Normal 9.0-12.7 [facility] Comment on above: Order Comment: Speci men Type: BLOOD SPECIMEN Ordering Facility: [facility] Address: [address] [place] [address] Performed By: #### 3 4528-0 #### [facility] CLIA [id number] [address] [place] [address] [place] Platelets (Bld) [#/Vol] 241 10*3/uL Normal 150-400 [facility] Comment on above: Order Comment: Speci men Type: BLOOD SPECIMEN Ordering Facility: [facility] Address: [address] [place] [address] Performed By: #### 3 4528-0 #### [facility] CLIA [id number] [address] [place] [address] [place] RBC (Bld) [#/Vol] 4.29 10*6/uL Normal 3.90-5.20 [facility] Comment on above: Order Comment: Speci men Type: BLOOD SPECIMEN Ordering Facility: [facility] Address: [address] [place] [address] Performed By: #### 3 4528-0 #### [facility] CLIA [id number] [address] [place] [address] [place] WBC (Bld) [#/Vol] 7.41 10*3/uL Normal 3.70-11.00 [facility] Comment on above: Order Comment: Speci men Type: BLOOD SPECIMEN Ordering Facility: [facility] Address: [address] [place] [address] Performed By: #### 3 4528-0 #### [facility] CLIA [id number] [address] [place] [address] [place] Magnesium SerPl-mCncon 09-23 Magnesium [Mass/Vol] 2.0 mg/dL Normal 1.7-2.3 [facility] Comment on above: Order Comment: Speci men Type: BLOOD SPECIMEN Ordering Facility: [facility] Address: [address] [place] [address] Performed By: #### 1 3965-9 #### [facility] CLIA [id number] [address] [place] [address] [place] Renal function 2000 panelon 09-24-2023 Albumin [Mass/Vol] 3.6 g/dL Low 3.9-4.9 [facility] Comment on above: Order Comment: Speci men Type: BLOOD SPECIMEN Ordering Facility: [facility] Address: [address] [place] [address] Performed By: #### 1 3965-9 #### [facility] CLIA [id number] [address] [place] [address] [place] Anion gap [Moles/Vol] 11 mmol/L Normal 9-18 [facility] Comment on above: Order Comment: Speci men Type: BLOOD SPECIMEN Ordering Facility: [facility] Address: [address] [place], [place] [address] Performed By: #### 1 3965-9 #### [facility] CLIA [id number] [address] [place], [place] [address] [place] Calcium [Mass/Vol] 8.8 mg/dL Normal 8.5-10.2 [facility] Comment on above: Order Comment: Speci men Type: BLOOD SPECIMEN Ordering Facility: [facility] Address: [address] [place] [address] Performed By: #### 1 3965-9 #### [facility] CLIA [id number] [address] [place] [address] [place] Chloride [Moles/Vol] 107 mmol/L High 97-105 [facility] Comment on above: Order Comment: Speci men Type: BLOOD SPECIMEN Ordering Facility: [facility] Address: [address] [place] [address] Performed By: #### 1 3965-9 #### [facility] CLIA [id number] [address] [place] [address] [place] CO2 [Moles/Vol] 23 mmol/L Normal 22-30 [facility] Comment on above: Order Comment: Speci men Type: BLOOD SPECIMEN Ordering Facility: [facility] Address: [address] [place], [place] [address] Performed By: #### 1 3965-9 #### [facility] CLIA [id number] [address] [place], [place] [address] [place] Creatinine [Mass/Vol] 0.87 mg/dL Normal 0.58-0.96 [facility] Comment on above: Order Comment: Speci men Type: BLOOD SPECIMEN Ordering Facility: [facility] Address: [address] [place], [place] [address] Performed By: #### 1 3965-9 #### [facility] CLIA [id number] [address] [place] [address] [place] Creatinine and Glomerular filtration rate.predicted panel (S/P/Bld) 95 mL/min/1.73m??? Normal >=60 [facility] Comment on above: Order Comment: Shannan balbuena Type: BLOOD SPECIMEN Ordering Facility: [facility] Address: [address] [place] [address] Result Comment: Gisselle mated Glomerular Filtration Rate (eGFR) is calculated using the 2020 CKD-EPI creatinine equation. This equation utilizes serum creatinine, sex, and age as parameters. The creatinine assay has traceable calibration to isotope dilution-mass spectrometry. Refer to KDIGO guidelines for clinical interpretation. In patients with unstable renal function, e.g. those with acute kidney injury, the eGFR may not accurately reflect actual GFR. Performed By: #### 1 3965-9 #### [facility] CLIA [id number] [address] [place] [address] [place] Glucose [Mass/Vol] 102 mg/dL High 74-99 [facility] Comment on above: Order Comment: Shannan balbuena Type: BLOOD SPECIMEN Ordering Facility: [facility] Address: [address] [place] [address] Result Comment: The [place] Diabetes [employer] (ADA) provides guidance for cutoff values for fasting glucose and random glucose. The ADA defines fasting as no caloric intake for at least 8 hours. Fasting plasma glucose results between 100 to 125 mg/dL indicate increased risk for diabetes (prediabetes). Fasting plasma glucose results greater than or equal to 126 mg/dL meet the criteria for diagnosis of diabetes. In the absence of unequivocal hyperglycemia, results should be confirmed by repeat testing. In a patient with classic symptoms of hyperglycemia or hyperglycemic crisis, random plasma glucose results greater than or equal to 200 mg/dL meet the criteria for diagnosis of diabetes. Reference: Standards of Medical Care in Diabetes 2016, [place] [employer]. Diabetes Care. 2016.39(Suppl 1). Performed By: #### 1 3965-9 #### [facility] CLIA [id number] [address] [place] [address] [place] Phosphate [Mass/Vol] 3.9 mg/dL Normal 2.7-4.8 [facility] Comment on above: Order Comment: Speci men Type: BLOOD SPECIMEN Ordering Facility: [facility] Address: [address] [place] [address] Performed By: #### 1 3965-9 #### [facility] CLIA [id number] [address] [place] [address] [place] Potassium [Moles/Vol] 4.5 mmol/L Normal 3.7-5.1 [facility] Comment on above: Order Comment: Speci men Type: BLOOD SPECIMEN Ordering Facility: [facility] Address: [address] [place] [address] Performed By: #### 1 3965-9 #### [facility] CLIA [id number] [address] [place] [address] [place] Sodium [Moles/Vol] 141 mmol/L Normal 136-144 [facility] Comment on above: Order Comment: Speci men Type: BLOOD SPECIMEN Ordering Facility: [facility] Address: [address] [place] [address] Performed By: #### 1 3965-9 #### [facility] CLIA [id number] [address] [place] [address] [place] Urea nitrogen [Mass/Vol] 14 mg/dL Normal 7-21 [facility] Comment on above: Order Comment: Speci men Type: BLOOD SPECIMEN Ordering Facility: [facility] Address: [address] [place] [address] Performed By: #### 1 3965-9 #### [facility] CLIA [id number] [address] [place] [address] [place] THERAPY NTon 09-24-2023 THERAPY NT HNO ID: [id number] Author: MITCH CREWS, PT, DPT Service: ? Author Type: Physical Therapist Type: Therapy (PT/OT/Speech/Resp) Filed: 09/24/2023 15:40 Note Text: Physical Therapy Treatment Summary SERVICE DATE: 09/24/2023 SERVICE TIME: 1442 to 1521 ROOM: [address] [place] [address] PT 6 Clicks Score: 14 DISCHARGE RECOMMENDATIONS Acute Rehab Recommended Discharge Disposition Comments: To address deficits to strength, balance, and endurance. Significant gait training needs noted with high risk for falls. Recommended Discharge Disposition Due to: Patient requires an active, intensive rehabilitation therapy program due to:, ADL impairment resulting in caregiver dependence, anticipate community discharge/previous community dweller, caregiver training needs, coordination deficits, decline in functional status requiring daily skilled care, high level balance deficits, ongoing intervention of multiple therapy disciplines, poor trunk control ASSESSMENT Response to Therapy Interventions: Good Participation in Activities, Pain, Requires Additional Time to Complete Activities Patient pleasant, cooperative, and motivated. Reports 7-9/10 neck pain during session, increased when OOB. Significant tremoring during effortful movement noted. Continues to reporting significant dizziness and lightheadedness with mobility, but vitals remain WNL. B shuffling pattern during ambulation with poor limb advancement and difficulty weight shifting for offloading LEs. Heavy UE comepensation to FWW, fatiguing quickly on exertion. Continues to be appropriate for AR at D/C. 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 Relevant Past Medical History: ADHD and depression HOME LIVING Patient Lives With: Significant Other, Family (fiance) Assistance Available: 24-Hour Entry To Home: Stairs (2nd floor apartment) Number Of Stairs To Bed/Bath: One level once in apartment Tub/Shower Type: tub shower Laundry: pt completes, can assist Equipment Owned: Grab Bars- Shower, Rollator PRIOR FUNCTIONAL LEVEL Within Functional Limits Prior to recent flair up pt was IND, no AD. Recently pt has been receiving help for I/ADLs, states she is able to complete ADLs on her own but it is painful/fatiguing so she recieves help. Very sensitive to heat. Not able to participate in caring for her infant son, states she can hold him for ~10 minutes at a time. -falls, using rollator recently SUBJECTIVE I always push myself, sometimes too much. THERAPY DIAGNOSIS Reduced mobility-other TREATMENT INTERVENTIONS Therapeutic Activity (80780), Gait Training (88357) Timed Code Treatment (minutes): 39 Skilled Treatment Time (minutes): 39 TRAINING AND EDUCATION PROVIDED Advanced Balance Activities, Anatomy and Impact on Deficits, Assistive Device Use, Bed Mobility, Benefits of In-Hospital Mobility, Discharge Planning, Disease Specific Education, Equipment, Expected Functional Level, Falls Prevention, Gait Pattern, Reduction of Deviations, Patient Exercise/Therapy Program Support Needs, Positioning, Precautions/Restrictions , Sitting Balance, Role of Physical Therapy, Standing Balance, Transfers, Treatment Protocol THERAPEUTIC SKILLS USED Activity Dosing, Assessment of Tolerance Including Vitals Response to Activity, Cues for Sequencing/Proper Technique for Activity, Cuing Tactile, Cuing Verbal, Movement Facilitation, Physical Assist, Teach-Back for Education, Proprioceptive Input, Muscle Activation Facilitation FUNCTIONAL STATUS Bed Mobility Rolling: Contact Guard Assistance Supine To Sit: Contact Guard Assistance . Sit to Supine: Moderate Assistance Scooting: Contact Guard Assistance Transfers Sit To Stand: Minimal Assistance . Stand To Sit: Minimal Assistance Bed to Chair Moderate Assistance Bed To Chair Transfer Type: Stand Pivot Bed To Chair Transfer Equipment: Wheeled Walker, Gait Belt Gait Moderate Assistance Tremoring throughout and reporting increased neck pain and dizziness. Vitals montiored and WNL. Poor weight shifting and toe clearance bilaterally with shuffling pattern and absent heel strike. Gait Device: Wheeled Walker, With Wheelchair Follow General Deviations/Observations: Malena decreased, Shuffling Gait, Step length decreased, UE weight bearing on assistive device excessive, Flexed trunk posture, Improper distancing from assistive device, Difficulty changing direction/turning Gait Distance (feet): 15 ft x 2, 10 ft x 2 Gait Deviations Right Lower Extremity: Push off during terminal stance decreased, Heel strike during initial stance decreased Gait Deviations Left Lower Extremity: Heel strike during initial stance decreased, Push off during terminal stance decreased Stairs GOALS Patient will demonstrate progress to optimize functional mobility, maximize activity tolerance and endurance (more content not included)... Normal [facility] CBC panel Auto (Bld)on 09-22 Erythrocyte distribution width (RBC) [Ratio] 14.7 % Normal 11.5-15.0 [facility] Comment on above: Order Comment: Speci men Type: BLOOD SPECIMEN Ordering Facility: [facility] Address: [address] [place], [place] [address] Performed By: #### 5 8410-2 #### [facility] CLIA [id number] [address] [place] [address] [place] Hematocrit (Bld) [Volume fraction] 40.6 % Normal 36.0-46.0 [facility] Comment on above: Order Comment: Speci men Type: BLOOD SPECIMEN Ordering Facility: [facility] Address: [address] [place] [address] Performed By: #### 5 8410-2 #### [facility] CLIA [id number] [address] [place] [address] [place] Hemoglobin (Bld) [Mass/Vol] 13.0 g/dL Normal 11.5-15.5 [facility] Comment on above: Order Comment: Speci men Type: BLOOD SPECIMEN Ordering Facility: [facility] Address: [address] [place] [address] Performed By: #### 5 8410-2 #### [facility] CLIA [id number] [address] [place] [address] [place] MCH (RBC) [Entitic mass] 27.4 pg Normal 26.0-34.0 [facility] Comment on above: Order Comment: Speci men Type: BLOOD SPECIMEN Ordering Facility: [facility] Address: [address] [place] [address] Performed By: #### 5 8410-2 #### [facility] CLIA [id number] [address] [place] [address] [place] MCHC (RBC) [Mass/Vol] 32.0 g/dL Normal 30.5-36.0 [facility] Comment on above: Order Comment: Speci men Type: BLOOD SPECIMEN Ordering Facility: [facility] Address: [address] [place] [address] Performed By: #### 5 8410-2 #### [facility] CLIA [id number] [address] [place] [address] [place] MCV (RBC) [Entitic vol] 85.5 fL Normal 80.0-100.0 [facility] Comment on above: Order Comment: Speci men Type: BLOOD SPECIMEN Ordering Facility: [facility] Address: [address] [place] [address] Performed By: #### 5 8410-2 #### [facility] CLIA [id number] [address] [place] [address] [place] Nucleated RBC (Bld) [#/Vol] 10*3/uL Normal <0.01 [facility] Comment on above: Order Comment: Speci men Type: BLOOD SPECIMEN Ordering Facility: [facility] Address: [address] [place] [address] Performed By: #### 5 8410-2 #### [facility] CLIA [id number] [address] [place] [address] [place] Platelet mean volume (Bld) [Entitic vol] 9.5 fL Normal 9.0-12.7 [facility] Comment on above: Order Comment: Speci men Type: BLOOD SPECIMEN Ordering Facility: [facility] Address: [address] [place], [place] [address] Performed By: #### 5 8410-2 #### [facility] CLIA [id number] [address] [place] [address] [place] Platelets (Bld) [#/Vol] 245 10*3/uL Normal 150-400 [facility] Comment on above: Order Comment: Speci men Type: BLOOD SPECIMEN Ordering Facility: [facility] Address: [address] [place] [address] Performed By: #### 5 8410-2 #### [facility] CLIA [id number] [address] [place] [address] [place] RBC (Bld) [#/Vol] 4.75 10*6/uL Normal 3.90-5.20 [facility] Comment on above: Order Comment: Speci men Type: BLOOD SPECIMEN Ordering Facility: [facility] Address: [address] [place] [address] Performed By: #### 5 8410-2 #### [facility] CLIA [id number] [address] [place] [address] [place] WBC (Bld) [#/Vol] 6.57 10*3/uL Normal 3.70-11.00 [facility] Comment on above: Order Comment: Speci men Type: BLOOD SPECIMEN Ordering Facility: [facility] Address: [address] [place] [address] Performed By: #### 5 8410-2 #### [facility] CLIA [id number] [address] [place] [address] [place] CEA SerPl-mCncon 09-23-2023 Carcinoembryonic Ag [Mass/Vol] 0.6 ng/mL Normal <=2.9 [facility] Comment on above: Order Comment: Speci men Type: BLOOD SPECIMEN Ordering Facility: [facility] Address: [address] [place] [address] Result Comment: Carc inoembryonic antigen test is used as an aid in monitoring response to treatment or recurrence in patients with established colorectal, breast, lung, prostatic, pancreatic, and ovarian carcinomas. Clinical correlation is required. The Carcinoembryonic antigen test was performed using the Charo Lendstar Unicel DXI paramagnetic particle chemiluminescent immunoassay method. Results obtained with different assay methods or kits cannot be used interchangeably. Performed By: #### 3 4528-0 #### [facility] CLIA [id number] [address] [place] [address] [place] CONSULTon 09-23-2023 CONSULT HNO ID: [id number] Author: HILDA OROZCO PA-C Service: Physical Medicine AND Rehabilitation Author Type: Physician Shellfish Harvester Type: Consults Filed: 09/23/2023 16:56 Note Text: HOSPITAL INITIAL CONSULT: PMANDR SERVICE DATE: 09/23/2023 SERVICE TIME: 4:37 PM REASON FOR CONSULTATION: assessment of rehab service needs and PMANDR Consult Order in patient's chart: Yes, order attached to this consult Subjective PATIENT'S HOME ADDRESS: [address] [place] [id number] HISTORY: Ladi Bernstein is a 23 year old female whose current [facility] admission dates to 09/20/2023. History notes that she was admitted on that date from [facility] Ms. Bernstein is being seen at the request of Dr. Stevenson, the [facility] physician of record. HPI/CHIEF COMPLAINT: Current location: [facility] [id number] Parts of this note may have been copied (in italics) and I have reviewed and edited/updated from a combination of HANDP, progress notes from primary service and/or consulting services notes via chart review: Ms. Ladi Bernstein is a 23yo female with a history of ADHD and depression who presents from [facility] for recurrent recurrent generalized weakness, pain, and ascending sensory change. Ms. Bernstein's symptoms started last August (08/2022, -1yr). Her first symptom was decreased sensation in there feet that ascended over the week to include everything below her waist. By the time she presented to her PCP/ED, her symptoms had progressed to her torso (a/w squeezing sensation) and ascended up her arms (starting at fingertips). She also experienced a bandlike pressure sensation around her entire abdomen (not chest) and diffuse sharp pains/spasms (e.g. circumferentially radiating down arms/legs). It stopped after it reached the middle of her nec to her neck and greater auricular nerve distrubution of head bilaterally (C2-C3). Weakness was first evident in the legs and hands. She denies ever having increased WOB/dyspnea or dysphagia. No pseudobulbar affect. There were no clear antecedent illness or exposures. Her symptoms reoccurred in early July (07/2023) with downward radiating lateral leg pain and cramping (worsened at rest). The continued to progressive over the past three weeks until when she was preparing dinner one evening and experienced severe right, then left hand cramping pain. Pain was followed by the same distal ascending numbness (2 weeks ago, currently at chest and proximal elbows) and then generalized weakness (LUE sensation. She received three days IVMP, without appreciable benefit - instead her pain/weakness worsened. Ms. 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 While the central (and entire) T2 lesion at C2/3 might be more characteristic of NMOSD, the lesion is not as longitudinally extensive as characteristic. However, the T1 isointensity would fit better with NMO compared to MS while the relatively short segment would fit better with MS. MOGAD and other systemic autoimmune diseases considered - although for the latter there are no other clear systemic signs (rash, sicca, chest nodules, etc.). Malignancy screen can help rule out paraneoplastic. Less likely infectious given timecourse, can assess for HIV, syphilis, HTLV. Unlikely spinal cord infarct or dAVF. Other toxic/metabolic causes also on differential - though no currently recognized change that would otherwise provoke worsening. Can also consider tumor given expansile nature but would not be easily explain relapsing course. Likely some functional overlay given discrepancy between LE strength exam and gait - and apparently inconsistent localization in LE localization exam. Could be confounded by pain. Given unclear nature of condition and lack of response to IV steroids discussed with Dr. Holloway and the plan is for therapy, pain control and imaging surveillance. Prior to hospitalization, she relates a daily activity level that was fully independent at the community level prior to flair up. Patient has recently been receiving help for ADLs/IADLs. Patient reports ADLs are difficult due to pain and fatigue. Has been using rollator recently She lives with significant other CURRENT VOCATIONAL STATUS: Does not work CURRENT TRANSPORTATION ACCESS: Prior to admission, how did patient travel to appointments AND events outside the home? Does not drive PROJECTED/ ANTICIPATED MEDICATION MANAGEMENT: (Surrogate for cognition/executive/phys ical functioning) at discharge from this episode of care: will manage without help (may receive help picking up pills / delivery) ALLERGIES No Known Allergies Current Facility-Administered Medications Medication Dose Route Frequency lisdexamfetamine 30 mg capsule (VYVANSE) 30 mg ORAL DAILY enoxaparin 40 mg injection (LOVENOX) 40 mg SUBCUTANEOUS q 24 HR NaCl 0.9% iv flush bag 20 mL INTRAVENOUS PRN a (more content not included)... Normal [facility] Magnesium SerPl-mCncon 09-22 Magnesium [Mass/Vol] 2.0 mg/dL Normal 1.7-2.3 [facility] Comment on above: Order Comment: Speci men Type: BLOOD SPECIMEN Ordering Facility: [facility] Address: [address] [place] [address] Performed By: #### 1 3965-9 #### [facility] CLIA [id number] [address] [place] [address] [place] Renal function 2000 panelon 09-23-2023 Albumin [Mass/Vol] 4.1 g/dL Normal 3.9-4.9 [facility] Comment on above: Order Comment: Speci men Type: BLOOD SPECIMEN Ordering Facility: [facility] Address: [address] [place] [address] Performed By: #### 1 3965-9 #### [facility] CLIA [id number] [address] [place] [address] [place] Anion gap [Moles/Vol] 16 mmol/L Normal 9-18 [facility] Comment on above: Order Comment: Speci men Type: BLOOD SPECIMEN Ordering Facility: [facility] Address: [address] [place] [address] Performed By: #### 1 3965-9 #### [facility] CLIA [id number] [address] [place] [address] [place] Calcium [Mass/Vol] 9.3 mg/dL Normal 8.5-10.2 [facility] Comment on above: Order Comment: Speci men Type: BLOOD SPECIMEN Ordering Facility: [facility] Address: [address] [place] [address] Performed By: #### 1 3965-9 #### [facility] CLIA [id number] [address] [place] [address] [place] Chloride [Moles/Vol] 104 mmol/L Normal 97-105 [facility] Comment on above: Order Comment: Speci men Type: BLOOD SPECIMEN Ordering Facility: [facility] Address: [address] [place], [place] [id number] Performed By: #### 1 3965-9 #### [facility] CLIA [id number] [address] [place] [address] [place] CO2 [Moles/Vol] 17 mmol/L Low 22-30 [facility] Comment on above: Order Comment: Speci esha Type: BLOOD SPECIMEN Ordering Facility: [facility] Address: [address] [place] [address] Performed By: #### 1 3965-9 #### [facility] CLIA [id number] [address] [place] [address] [place] Creatinine [Mass/Vol] 0.82 mg/dL Normal 0.58-0.96 [facility] Comment on above: Order Comment: Allyni men Type: BLOOD SPECIMEN Ordering Facility: [facility] Address: [address] [place] [address] Performed By: #### 1 3965-9 #### [facility] [place] [id number] [address] [place] [address] [place] Creatinine and Glomerular filtration rate.predicted panel (S/P/Bld) 102 mL/min/1.73m??? Normal >=60 [facility] Comment on above: Order Comment: Allyni men Type: BLOOD SPECIMEN Ordering Facility: [facility] Address: [address] [place] [address] Result Comment: Gisselle mated Glomerular Filtration Rate (eGFR) is calculated using the 2020 CKD-EPI creatinine equation. This equation utilizes serum creatinine, sex, and age as parameters. The creatinine assay has traceable calibration to isotope dilution-mass spectrometry. Refer to KDIGO guidelines for clinical interpretation. In patients with unstable renal function, e.g. those with acute kidney injury, the eGFR may not accurately reflect actual GFR. Performed By: #### 1 3965-9 #### [facility] CLIA [id number] [address] [place] [address] [place] Glucose [Mass/Vol] 123 mg/dL High 74-99 [facility] Comment on above: Order Comment: Allyni men Type: BLOOD SPECIMEN Ordering Facility: [facility] Address: [address] [place] [id number] Result Comment: The [place] Diabetes [employer] (ADA) provides guidance for cutoff values for fasting glucose and random glucose. The ADA defines fasting as no caloric intake for at least 8 hours. Fasting plasma glucose results between 100 to 125 mg/dL indicate increased risk for diabetes (prediabetes). Fasting plasma glucose results greater than or equal to 126 mg/dL meet the criteria for diagnosis of diabetes. In the absence of unequivocal hyperglycemia, results should be confirmed by repeat testing. In a patient with classic symptoms of hyperglycemia or hyperglycemic crisis, random plasma glucose results greater than or equal to 200 mg/dL meet the criteria for diagnosis of diabetes. Reference: Standards of Medical Care in Diabetes 2016, [place] [employer]. Diabetes Care. 2016.39(Suppl 1). Performed By: #### 1 3965-9 #### [facility] CLIA [id number] [address] [place] [address] [place] Phosphate [Mass/Vol] 3.8 mg/dL Normal 2.7-4.8 [facility] Comment on above: Order Comment: Speci men Type: BLOOD SPECIMEN Ordering Facility: [facility] Address: [address] [place] [address] Performed By: #### 1 3965-9 #### [facility] CLIA [id number] [address] [place] [address] [place] Potassium [Moles/Vol] 4.7 mmol/L Normal 3.7-5.1 [facility] Comment on above: Order Comment: Speci men Type: BLOOD SPECIMEN Ordering Facility: [facility] Address: [address] [place], [place] [address] Performed By: #### 1 3965-9 #### [facility] CLIA [id number] [address] [place] [address] [place] Sodium [Moles/Vol] 137 mmol/L Normal 136-144 [facility] Comment on above: Order Comment: Speci men Type: BLOOD SPECIMEN Ordering Facility: [facility] Address: [address] [place] [address] Performed By: #### 1 3965-9 #### [facility] CLIA [id number] [address] [place] [address] [place] Urea nitrogen [Mass/Vol] 17 mg/dL Normal 7-21 [facility] Comment on above: Order Comment: Speci men Type: BLOOD SPECIMEN Ordering Facility: [facility] Address: [address] [place] [address] Performed By: #### 1 3965-9 #### [facility] CLIA [id number] [address] [place] [address] [place] THERAPY NTon 09-23-2023 THERAPY NT HNO ID: [id number] Author: LADI PELAEZ, PT, DPT Service: ? Author Type: Physical Therapist Type: Therapy (PT/OT/Speech/Resp) Filed: 09/23/2023 15:29 Note Text: Physical Therapy Treatment Summary SERVICE DATE: 09/23/2023 SERVICE TIME: 1435 to 1508 ROOM: [place] [address] PT 6 Clicks Score: 15 DISCHARGE RECOMMENDATIONS Acute Rehab Recommended Discharge Disposition Comments: Pending further progress with mobility and pain management. If mobility unable to progress, may benefit from stay in [place]. PT will continue to assess Recommended Discharge Disposition Due to: Patient requires an active, intensive rehabilitation therapy program due to:, ADL impairment resulting in caregiver dependence, anticipate community discharge/previous community dweller, caregiver training needs, coordination deficits, decline in functional status requiring daily skilled care, high level balance deficits, ongoing intervention of multiple therapy disciplines, poor trunk control ASSESSMENT Response to Therapy Interventions: Good Participation in Activities, Multiple Ongoing Medical Issues, Low Activity Tolerance Pt pleasant and motivated to participate in therapy session. Pt ambulates to bathroom and then additional 15' following. Pt with shuffling, tremulous gait patterns, limited knee and hip flexion. Pt becomes very fatigued with upright activity, x2 instances of near syncope with increased dizziness, all VSS and recovers well with seated rest. However, pt states mobility increasing pain. Pt brought back to bed via WC for safety and RN and PT assisting back to supine in bed for safety. Pt would benefit from d/c to [place] due to significant change in functional mobility and inability to safely complete mobility in home environment. PT will update recommendation, team aware. 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 Relevant Past Medical History: ADHD and depression HOME LIVING Patient Lives With: Significant Other, Family (fiance) Assistance Available: 24-Hour Entry To Home: Stairs (2nd floor apartment) Number Of Stairs To Bed/Bath: One level once in apartment Tub/Shower Type: tub shower Laundry: pt completes, can assist Equipment Owned: Grab Bars- Shower, Rollator PRIOR FUNCTIONAL LEVEL Within Functional Limits Prior to recent flair up pt was IND, no AD. Recently pt has been receiving help for I/ADLs, states she is able to complete ADLs on her own but it is painful/fatiguing so she recieves help. Very sensitive to heat. Not able to participate in caring for her infant son, states she can hold him for ~10 minutes at a time. -falls, using rollator recently SUBJECTIVE agreeable to PT THERAPY DIAGNOSIS Reduced mobility-other TREATMENT INTERVENTIONS Therapeutic Activity (98679), Gait Training (02544) Timed Code Treatment (minutes): 33 Skilled Treatment Time (minutes): 33 TRAINING AND EDUCATION PROVIDED Advanced Balance Activities, Anatomy and Impact on Deficits, Assistive Device Use, Bed Mobility, Benefits of In-Hospital Mobility, Discharge Planning, Disease Specific Education, Equipment, Expected Functional Level, Falls Prevention, Gait Pattern, Reduction of Deviations, Patient Exercise/Therapy Program Support Needs, Positioning, Precautions/Restrictions , Sitting Balance, Role of Physical Therapy, Standing Balance, Transfers, Treatment Protocol THERAPEUTIC SKILLS USED Activity Dosing, Assessment of Tolerance Including Vitals Response to Activity, Cues for Sequencing/Proper Technique for Activity, Cuing Tactile, Cuing Verbal, Movement Facilitation, Physical Assist, Teach-Back for Education, Proprioceptive Input, Muscle Activation Facilitation FUNCTIONAL STATUS Bed Mobility Rolling: Minimal Assistance Supine To Sit: Minimal Assistance Sit to Supine: Minimal Assistance Scooting: (NT) Transfers Sit To Stand: Contact Guard Assistance Stand To Sit: Contact Guard Assistance Bed to Chair Moderate Assistance Bed To Chair Transfer Type: Stand Pivot Bed To Chair Transfer Equipment: Gait Belt Gait Moderate Assistance pt with increased anterior lean throughout amb, dec heel strike/ toe off amb with flat foot shuffle gait B. limited hip flexion and tremulous throughout gait, increasing with faituge Gait Device: Wheeled Walker General Deviations/Observations: Malena decreased, Shuffling Gait, Step length decreased, UE weight bearing on assistive device excessive, Flexed trunk posture Gait Distance (feet): 2x15' Stairs GOALS Patient will demonstrate progress to optimize functional mobility, maximize activity tolerance and endurance to maximize function upon discharge. Rehab Potential: Excellent Progress Toward Goals: Progressing slower than expected PLAN PT Frequency: 5 Times Per Week Treatment Interventions: Education, Strengthening, Functional Mobility Training, (more content not included)... Normal [facility] THERAPY NT HNO ID: [id number] Author: JESICA MG, OT/L Service: Occupational Therapy Author Type: Occupational Therapist Type: Therapy (PT/OT/Speech/Resp) Filed: 09/23/2023 10:35 Note Text: Occupational Therapy Treatment Summary SERVICE DATE: 09/23/2023 SERVICE TIME: 18 to 1006 ROOM: [id number] OT 6 Clicks Score: 19 DISCHARGE RECOMMENDATIONS Acute Rehab Recommended Discharge Disposition Comments: - Recommended Discharge Disposition Due to: Patient requires an active, intensive rehabilitation therapy program due to:, ADL impairment resulting in caregiver dependence, decline in functional status requiring daily skilled care, ongoing intervention of multiple therapy disciplines Anticipated Discharge Needs: Physical Assist at Home Physical Assist at Home for: Cleaning, Laundry, Meals, Medication Management, Self Care, Stairs, Ambulation, Shopping, Transportation Recommended Discharge Equipment: Extended tub bench ASSESSMENT Response to Therapy Interventions: Good Participation in Activities, Low Activity Tolerance Pt agreeable and motivated to participate in OT session. Pt presents with significantly impaired activity tolerance, pain, and dizziness impacting performance this date. Negative for orthostatic hypotension, though pt symptomatic with all functional activity. HR in high 50s following activity, RN and medical team aware. At this time pt is unsafe to return home and will benefit from intensive, multidisciplinary therapy at [place] to maximize independence and safety with self-care tasks. Pt aware and in agreement with update dd/c recommendations. 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 Relevant Past Medical History: ADHD and depression HOME LIVING Patient Lives With: Significant Other, Family (fiance) Assistance Available: 24-Hour Entry To Home: Stairs (2nd floor apartment) Number Of Stairs To Bed/Bath: One level once in apartment Tub/Shower Type: tub shower Laundry: pt completes, can assist Equipment Owned: Grab Bars- Shower, Rollator PRIOR FUNCTIONAL LEVEL Within Functional Limits Prior to recent flair up pt was IND, no AD. Recently pt has been receiving help for I/ADLs, states she is able to complete ADLs on her own but it is painful/fatiguing so she recieves help. Very sensitive to heat. Not able to participate in caring for her infant son, states she can hold him for ~10 minutes at a time. -falls, using rollator recently Baseline Cognition: Oriented to self, Oriented to place, Oriented to time, Oriented to situation SUBJECTIVE I need to lay down COGNITION Responsiveness: Alert, Awake Follows Commands: 3-step Commands Cog 6 Start of Session Total Points (Max Score = 24): 24 (09/23/23) Cog 6 End of Session Total Points (Max Score = 24): 24 (09/23/23) 4AT Score: 0 (09/23/23) Delirium Positive/Negative: Negative (09/23/23) THERAPY DIAGNOSIS Decreased activities of daily living (ADL), Reduced mobility-other, Muscle Weakness (generalized) TREATMENT INTERVENTIONS Self Skilled Nursing Management (29877), Therapeutic Activity (71903) Timed Code Treatment (minutes): 49 Skilled Treatment Time (minutes): 49 TRAINING AND EDUCATION PROVIDED Activity Adaptation/Compensatory Strategies, Attention Diversion Techniques, Bed Mobility, Benefits of In-Hospital Mobility, Discharge Planning, Disease Specific Education, Grooming Tasks, Functional Mobility Involving ADLs, Role of Occupational Therapy, Standing Balance to Improve [place] with ADLs/Self-Care, Transfer - Sit to Stand THERAPEUTIC SKILLS USED Assessment of Tolerance Including Vitals Response to Activity, Activity Dosing, Cuing Verbal, Physical Assist, Therapeutic Use of Self, Teach-Back for Education, Task Analysis Learning FUNCTIONAL STATUS Activities of Daily Living Assist Level Additional Information Feeding Set Up Grooming Set Up Bathing Upper Body Supervision Bathing Lower Body Moderate Assistance Dressing Upper Body Stand By Assistance Dressing Lower Body Moderate Assistance Toileting Minimal Assistance Mobility Assist Level Additional Information Bed Mobility Rolling: Stand By Assistance Supine To Sit: Stand By Assistance Sit To Supine: Minimal Assistance Sit to Stand Contact Guard Assistance Stand to Sit Contact Guard Assistance Bed to Chair Toilet/Commode Shower Functional Mobility Contact Guard Assistance Functional Mobility Device: Wheeled Walker GOALS Patient will demonstrate progress to optimize self-care activities, cognitive and/or coping to maximize function upon discharge. Progress Toward Goals: Progressing as expected Rehab Potential: Good PLAN OT Frequency: 4 Times Per Week Treatment Interventions: Education, Self Care/Home Management, Energy Conservation Training, Strengthening, Functional Mobility Training, Balance Training, Neurom (more content not included)... Normal [facility] CBC panel Auto (Bld)on 09-21 Erythrocyte distribution width (RBC) [Ratio] 14.9 % Normal 11.5-15.0 [facility] Comment on above: Order Comment: Speci men Type: BLOOD SPECIMENOrdering Facility: [facility] Address: [address] [place] [address] Performed By: #### 5 8410-2 ####[facility] [id number] [place] [address] [place] Hematocrit (Bld) [Volume fraction] 38.5 % Normal 36.0-46.0 [facility] Comment on above: Order Comment: Speci men Type: BLOOD SPECIMENOrdering Facility: [facility] Address: [address] [place] [address] Performed By: #### 5 8410-2 ####[facility] [id number] [place] [address] [place] Hemoglobin (Bld) [Mass/Vol] 12.5 g/dL Normal 11.5-15.5 [facility] Comment on above: Order Comment: Speci men Type: BLOOD SPECIMENOrdering Facility: [facility] Address: [address] [place] [address] Performed By: #### 5 8410-2 ####[facility] [id number] [place] [address] [place] MCH (RBC) [Entitic mass] 27.3 pg Normal 26.0-34.0 [facility] Comment on above: Order Comment: Speci men Type: BLOOD SPECIMENOrdering Facility: [facility] Address: [address] [place] [address] Performed By: #### 5 8410-2 ####[facility]CLIA [id number] [place] [address] [place] MCHC (RBC) [Mass/Vol] 32.5 g/dL Normal 30.5-36.0 [facility] Comment on above: Order Comment: Speci men Type: BLOOD SPECIMENOrdering Facility: [facility] Address: [address] [place] [address] Performed By: #### 5 8410-2 ####[facility]CLIA [id number] [place] [address] [place] MCV (RBC) [Entitic vol] 84.1 fL Normal 80.0-100.0 [facility] Comment on above: Order Comment: Speci men Type: BLOOD SPECIMENOrdering Facility: [facility] Address: [address] [place] [address] Performed By: #### 5 8410-2 ####[facility]CLIA [id number] [place] [address] [place] Nucleated RBC (Bld) [#/Vol] 10*3/uL Normal <0.01 [facility] Comment on above: Order Comment: Speci men Type: BLOOD SPECIMENOrdering Facility: [facility] Address: [address] [place] [address] Performed By: #### 5 8410-2 ####[facility]IA [id number] [place] [address] [place] Platelet mean volume (Bld) [Entitic vol] 9.8 fL Normal 9.0-12.7 [facility] Comment on above: Order Comment: Speci men Type: BLOOD SPECIMENOrdering Facility: [facility] Address: [address] [place] [address] Performed By: #### 5 8410-2 ####[facility]CLIA [id number] [place] [address] [place] Platelets (Bld) [#/Vol] 278 10*3/uL Normal 150-400 [facility] Comment on above: Order Comment: Speci men Type: BLOOD SPECIMENOrdering Facility: [facility] Address: [address] [place] [address] Performed By: #### 5 8410-2 ####[facility]CLIA [id number] [place] [address] [place] RBC (Bld) [#/Vol] 4.58 10*6/uL Normal 3.90-5.20 [facility] Comment on above: Order Comment: Speci men Type: BLOOD SPECIMENOrdering Facility: [facility] Address: [address] [place] [address] Performed By: #### 5 8410-2 ####[facility]CLIA [id number] [place] [address] [place] WBC (Bld) [#/Vol] 6.84 10*3/uL Normal 3.70-11.00 [facility] Comment on above: Order Comment: Speci men Type: BLOOD SPECIMENOrdering Facility: [facility] Address: [address] [place] [address] Performed By: #### 5 8410-2 ####[facility]CLIA [id number] [place] [address] [place] Magnesium SerPl-mCncon 09-21 Magnesium [Mass/Vol] 2.1 mg/dL Normal 1.7-2.3 [facility] Comment on above: Order Comment: Speci men Type: BLOOD SPECIMEN [facility] Address: [address] [place] [address] Performed By: #### 2 4362-6, 62071-0 #### [facility] CLIA [id number] [address] [place] [address] [place] NM PET/CT WHOLE BODY INITon 09-22-2023 NM PET/CT WHOLE BODY INIT * * *Final Report* * * DATE OF EXAM: Sep 22 2023 11:56AM N 0061 - NM PET/CT WHOLE BODY INIT / PROCEDURE REASON: Occult malignancy * * * * Physician Interpretation * * * * EXAMINATION: BODY FDG PET-CT CLINICAL HISTORY: 23 years old Female with Occult malignancy. INDICATION: Initial treatment strategy. TECHNIQUE: Radiopharmaceutical was administered IV followed about 60 minutes later by PET imaging from eyes to proximal thighs. Free breathing, low dose CT of the same body region was acquired without IV contrast for attenuation correction and anatomic localization. * CT Radiation Dose: Integrated CT Dose-Length Product (DLP) for this visit = 718 mGy*cm * CT Dose Reduction Employed: Yes * Blood glucose (mg/dL): 103 * Radiopharmaceutical Dose: 12.3 mCi * Radiopharmaceutical: S24-Dfapyydkkmbgfotekf (FDG) COMPARISON: No previous FDG PET/CT available CORRELATION: CT chest abdomen pelvis 09/20/2023 RESULT: REFERENCES: SUV reference values: * Blood pool (descending aorta) activity: SUVmax 2.7 * Background liver activity: SUVmax 3.5; SUVmean 2.7 Senior Dot Net Developer (topogram) images: No additional findings. Notes and Limitations: * Standardized uptake values indicate the highest activity concentration (SUVmax) at a given location but can be variable and are not absolute. * Physiologic/non-neoplast ic uptake is common in the brain, extraocular muscles, oral cavity, tonsils, salivary glands, vocal cords, myocardium, liver, GI tract, urinary tract, and bone marrow among others. Certain regions and organ systems can have more intense uptake, which could confound or obscure some pathology. * Unenhanced imaging is limited for the evaluation of some pathology and the acquired CT for PET was not designed to produce diagnostic CT scan quality. * PET-CT is often not sensitive for pulmonary nodules less than 8 mm. HEAD AND NECK: Imaged Head: No abnormal uptake. Neck and Lymph Nodes: Few mildly FDG avid subcentimeter cervical nodes, presumably reactive. Index nodes as follows: * 0.8 cm LEFT level 2A (Max SUV:4.0; image 4:35 and 6:317) * 0.8 cm RIGHT level 2A (Max SUV:4.4; image 4:35 and 6:317) Increased FDG uptake within the paravertebral soft tissues and supraclavicular regions without corresponding soft tissue lesion favored to represent metabolically active brown adipose tissue. Thyroid: No abnormal uptake. CHEST: Lungs and Airways: No abnormal uptake. Pleura and Pericardium: No abnormal uptake. No effusion. Cardiovascular: No abnormal uptake. Mediastinum and Lymph Nodes: No abnormal uptake. Chest Wall: No abnormal uptake. ABDOMEN AND PELVIS: Hepatobiliary: No abnormal uptake. Spleen: No abnormal uptake. No splenomegaly. Pancreas: No abnormal uptake. Adrenals: No abnormal uptake. Urinary Tract: No abnormal uptake. No hydronephrosis. GI Tract: No abnormal uptake. No dilated bowel. Peritoneum: No abnormal uptake. No ascites. Vasculature: No abnormal uptake. No abdominal aortic aneurysm. Retroperitoneum and Lymph Nodes: No abnormal uptake. Pelvis: No abnormal uptake. MUSCULOSKELETAL: Osseous: No abnormal uptake. Soft Tissues: No abnormal uptake. IMPRESSION: HEAD/NECK: * Few mildly hypermetabolic subcentimeter cervical lymphadenopathy, presumably reactive. * No definite FDG avid neoplastic process. CHEST: * No FDG avid neoplastic process. ABDOMEN/PELVIS: * No FDG avid neoplastic process. MUSCULOSKELETAL: * No FDG avid neoplastic process. Personnel Consultant: STEPHEN Transcribe Date/Time: Sep 22 2023 2:31P Dictated by : TARA KENDALL MD This examination was interpreted and the report reviewed and electronically signed by: TARA KENDALL MD on Sep 22 2023 2:56PM EST [id number] Normal [facility] Renal function 2000 panelon 09-22-2023 Albumin [Mass/Vol] 4.0 g/dL Normal 3.9-4.9 [facility] Comment on above: Order Comment: Speci men Type: BLOOD SPECIMEN [facility] Address: [address] [place] [address] Performed By: #### 2 4362-6, 35697-2 #### [facility] CLIA [id number] [address] [place] [address] [place] Anion gap [Moles/Vol] 10 mmol/L Normal 9-18 [facility] Comment on above: Order Comment: Speci men Type: BLOOD SPECIMEN [facility] Address: [address] [place] [address] Performed By: #### 2 4362-6, #### [facility] CLIA [id number] [address] [place] [id number] [place] Calcium [Mass/Vol] 9.2 mg/dL Normal 8.5-10.2 [facility] Comment on above: Order Comment: Speci men Type: BLOOD SPECIMEN [facility] Address: [address] [place], [place] [address] Performed By: #### 2 436-6, #### [facility] CLIA [id number] [address] [place] [address] [place] Chloride [Moles/Vol] 104 mmol/L Normal 97-105 [facility] Comment on above: Order Comment: Speci men Type: BLOOD SPECIMEN [facility] Address: [address] [place] [address] Performed By: #### 2 436-6, #### [facility] CLIA [id number] [address] [place] [address] [place] CO2 [Moles/Vol] 23 mmol/L Normal 22-30 [facility] Comment on above: Order Comment: Speci men Type: BLOOD SPECIMEN [facility] Address: [address] [place], [place] [address] Performed By: #### 2 4362-6, #### [facility] CLIA [id number] [address] [place], [place] [address] [place] Creatinine [Mass/Vol] 0.97 mg/dL High 0.58-0.96 [facility] Comment on above: Order Comment: Speci men Type: BLOOD SPECIMEN [facility] Address: [address] [place], [place] [address] Performed By: #### 2 4362-6, #### [facility] CLIA [id number] [address] [place] [address] [place] Creatinine and Glomerular filtration rate.predicted panel (S/P/Bld) 83 mL/min/1.73m??? Normal >=60 [facility] Comment on above: Order Comment: Shannan balbuena Type: BLOOD SPECIMEN [facility] Address: [address] [place] [address] Result Comment: Gisselle mated Glomerular Filtration Rate (eGFR) is calculated using the 2020 CKD-EPI creatinine equation. This equation utilizes serum creatinine, sex, and age as parameters. The creatinine assay has traceable calibration to isotope dilution-mass spectrometry. Refer to KDIGO guidelines for clinical interpretation. In patients with unstable renal function, e.g. those with acute kidney injury, the eGFR may not accurately reflect actual GFR. Performed By: #### 2 4362-6, 51943-1 #### [facility] CLIA [id number] [address] [place] [address] [place] Glucose [Mass/Vol] 100 mg/dL High 74-99 [facility] Comment on above: Order Comment: Shannan balbuena Type: BLOOD SPECIMEN [facility] Address: [address] [place] [address] Result Comment: The [place] [employer] (ADA) provides guidance for cutoff values for fasting glucose and random glucose. The ADA defines fasting as no caloric intake for at least 8 hours. Fasting plasma glucose results between 100 to 125 mg/dL indicate increased risk for diabetes (prediabetes). Fasting plasma glucose results greater than or equal to 126 mg/dL meet the criteria for diagnosis of diabetes. In the absence of unequivocal hyperglycemia, results should be confirmed by repeat testing. In a patient with classic symptoms of hyperglycemia or hyperglycemic crisis, random plasma glucose results greater than or equal to 200 mg/dL meet the criteria for diagnosis of diabetes. Reference: Standards of Medical Care in Diabetes 2016, [place] [employer]. Diabetes Care. 2016.39(Suppl 1). Performed By: #### 2 4362-6, 52515-0 #### [facility] CLIA [id number] [address] [place] [address] [place] Phosphate [Mass/Vol] 4.8 mg/dL Normal 2.7-4.8 [facility] Comment on above: Order Comment: Speci men Type: BLOOD SPECIMEN [facility] Address: [address] [place] [address] Performed By: #### 2 4362-6, #### [facility] CLIA [id number] [address] [place] [address] [place] Potassium [Moles/Vol] 4.3 mmol/L Normal 3.7-5.1 [facility] Comment on above: Order Comment: Speci men Type: BLOOD SPECIMEN [facility] Address: [address] [place] [address] Performed By: #### 2 4362-6, #### [facility] CLIA [id number] [address] [place] [address] [place] Sodium [Moles/Vol] 137 mmol/L Normal 136-144 [facility] Comment on above: Order Comment: Speci men Type: BLOOD SPECIMEN [facility] Address: [address] [place] [address] Performed By: #### 2 4362-6, #### [facility] CLIA [id number] [address] [place] [address] [place] Urea nitrogen [Mass/Vol] 18 mg/dL Normal 7-21 [facility] Comment on above: Order Comment: Speci men Type: BLOOD SPECIMEN [facility] Address: [address] [place] [address] Performed By: #### 2 4362-6, #### [facility] CLIA [id number] [address] [place] [address] [place] THERAPY NTon 09-22-2023 THERAPY NT HNO ID: [id number] Author: TASNEEM VIEIRA, PT, DPT Service: ? Author Type: Physical Therapist Type: Therapy (PT/OT/Speech/Resp) Filed: 09/22/2023 16:03 Note Text: Physical Therapy Treatment Summary SERVICE DATE: 09/22/2023 SERVICE TIME: 1447 to 1516 ROOM: [place] [address] PT 6 Clicks Score: 16 DISCHARGE RECOMMENDATIONS Outpatient PT Recommended Discharge Disposition Comments: Pending further progress with mobility and pain management. If mobility unable to progress, may benefit from stay in [place]. PT will continue to assess ASSESSMENT Response to Therapy Interventions: Good Participation in Activities, Multiple Ongoing Medical Issues, Low Activity Tolerance pt pleasant and agreeable to session, motivated to amb today. pt amb down the king with WW and Scooter. tremulous throughout gait, increasing with fatigue. amb with flat foot gait. pt requesting seated rest break due to severe neck pain. pt requesting wet rags due to feeling overheated. PT obtaining rags and pt reports wanting to amb back to room. however at this time pt is noted to be mildly diaphoretic. pt is wheeled back to bed as precaution and planned to assess vitals however upon entering room pt becoming increasingly diaphoretic, reporting nausea and losing consiousness. staff assist activated and pt is returned from wc to bed with maxA x2. pt left in care of nursing staff and team. at this time pt is NOT cleared from PT to return home as pt lives in a second floor apartment requiring stair assessment and further amb trials to ensure safety with mobilization. if medical instability and physical assist levels continue to fluctuate, may require further PT services and oversight in [place] facility. PT will continue to follow and assess. 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 Relevant Past Medical History: ADHD and depression HOME LIVING Patient Lives With: Significant Other, Family (fiance) Assistance Available: 24-Hour Entry To Home: Stairs (2nd floor apartment) Number Of Stairs To Bed/Bath: One level once in apartment Tub/Shower Type: tub shower Laundry: pt completes, can assist Equipment Owned: Grab Bars- Shower, Rollator PRIOR FUNCTIONAL LEVEL Within Functional Limits Prior to recent flair up pt was IND, no AD. Recently pt has been receiving help for I/ADLs, states she is able to complete ADLs on her own but it is painful/fatiguing so she recieves help. Very sensitive to heat. Not able to participate in caring for her infant son, states she can hold him for ~10 minutes at a time. -falls, using rollator recently SUBJECTIVE THERAPY DIAGNOSIS Reduced mobility-other TREATMENT INTERVENTIONS Therapeutic Activity (73431), Gait Training (28969) Timed Code Treatment (minutes): 29 Skilled Treatment Time (minutes): 29 TRAINING AND EDUCATION PROVIDED Advanced Balance Activities, Anatomy and Impact on Deficits, Assistive Device Use, Bed Mobility, Benefits of In-Hospital Mobility, Discharge Planning, Disease Specific Education, Equipment, Expected Functional Level, Falls Prevention, Gait Pattern, Reduction of Deviations, Patient Exercise/Therapy Program Support Needs, Positioning, Precautions/Restrictions , Sitting Balance, Role of Physical Therapy, Standing Balance, Transfers, Treatment Protocol THERAPEUTIC SKILLS USED Activity Dosing, Assessment of Tolerance Including Vitals Response to Activity, Cues for Sequencing/Proper Technique for Activity, Cuing Tactile, Cuing Verbal, Movement Facilitation, Physical Assist, Teach-Back for Education, Proprioceptive Input, Muscle Activation Facilitation FUNCTIONAL STATUS Bed Mobility Rolling: Minimal Assistance Supine To Sit: Minimal Assistance log roll due to pain Sit to Supine: Maximal Assistance (due to dec responsiveness) Scooting: (NT) Transfers Sit To Stand: Contact Guard Assistance Stand To Sit: Contact Guard Assistance Bed to Chair Maximal Assistance (x2 assist due to dec responsiveness) Bed To Chair Transfer Type: Stand Pivot Bed To Chair Transfer Equipment: Gait Belt Gait Minimal Assistance pt with increased anterior lean throughout amb, dec heel strike/ toe off amb with flat foot shuffle gait B. limited hip flexion and tremulous throughout gait, increasing with faituge Gait Device: Wheeled Walker General Deviations/Observations: Malena decreased, Shuffling Gait, Step length decreased, UE weight bearing on assistive device excessive, Flexed trunk posture Gait Distance (feet): 45' Stairs GOALS Patient will demonstrate progress to optimize functional mobility, maximize activity tolerance and endurance to maximize function upon discharge. Rehab Potential: Excellent Progress Toward Goals: Progressing slower than expected PLAN PT Frequency: 5 Times Per Week Treatment Interventions: Education, Strengthening, Functional Mobility (more content not included)... Normal [facility] BANDS OLIGOCLONAL CSFon 05-0 CSF OLIGOCLONAL BANDS Oligoclonal bands are present in the CSF but not in the serum. Consistent with intrathecal synthesis of IgG. Normal [facility] Comment on above: Order Comment: Speci men Type: CEREBROSPINAL FLUID SPECIMENOrdering Facility: [facility] Address: [address] [place] [address] Performed By: #### T OURTCSF, BDOLGCSF ####[facility] [id number] [place] [address] [place] STAFF REVIEW (OLIGO BANDING) Reviewed by Billie Sims M.D., Ph.D Normal [facility] Comment on above: Order Comment: Speci men Type: CEREBROSPINAL FLUID SPECIMENOrdering Facility: [facility] Address: [address] [place] [address] Performed By: #### T OURTCSF, BDOLGCSF ####[facility] [id number] [place] [address] [place] Bacteria CSF Culton 09-21-19 24 Bacteria identified Cx Nom (CSF) CULTURE, CSF: No growth 5 days GRAM STAIN: No organisms seen Rare Polymorphonuclear leukocytes Gram stain performed on cytospun specimen. Normal [facility] Comment on above: Performed By: #### 4 3228-6, 606-4, FUNCS ####[facility] [id number] [place] [address] [place] CBC panel Auto (Bld)on 09-20 Erythrocyte distribution width (RBC) [Ratio] 15.1 % High 11.5-15.0 [facility] Comment on above: Order Comment: Speci men Type: BLOOD SPECIMEN [facility] Address: [address] [place] [address] Performed By: #### 5 8410-2 #### [facility] CLIA [id number] [address] [place] [address] [place] Hematocrit (Bld) [Volume fraction] 41.5 % Normal 36.0-46.0 [facility] Comment on above: Order Comment: Speci men Type: BLOOD SPECIMEN [facility] Address: [address] [place] [address] Performed By: #### 5 8410-2 #### [facility] CLIA [id number] [address] [place] [address] [place] Hemoglobin (Bld) [Mass/Vol] 13.4 g/dL Normal 11.5-15.5 [facility] Comment on above: Order Comment: Speci men Type: BLOOD SPECIMEN [facility] Address: [address] [place] [address] Performed By: #### 5 8410-2 #### [facility] CLIA [id number] [address] [place] [address] [place] MCH (RBC) [Entitic mass] 27.0 pg Normal 26.0-34.0 [facility] Comment on above: Order Comment: Speci men Type: BLOOD SPECIMEN [facility] Address: [address] [place] [address] Performed By: #### 5 8410-2 #### [facility] CLIA [id number] [address] [place] [address] [place] MCHC (RBC) [Mass/Vol] 32.3 g/dL Normal 30.5-36.0 [facility] Comment on above: Order Comment: Speci men Type: BLOOD SPECIMEN [facility] Address: [address] [place] [address] Performed By: #### 5 8410-2 #### [facility] CLIA [id number] [address] [place] [address] [place] MCV (RBC) [Entitic vol] 83.5 fL Normal 80.0-100.0 [facility] Comment on above: Order Comment: Speci men Type: BLOOD SPECIMEN [facility] Address: [address] [place] [address] Performed By: #### 5 8410-2 #### [facility] CLIA [id number] [address] [place] [address] [place] Nucleated RBC (Bld) [#/Vol] 10*3/uL Normal <0.01 [facility] Comment on above: Order Comment: Speci men Type: BLOOD SPECIMEN [facility] Address: [address] [place] [address] Performed By: #### 5 8410-2 #### [facility] CLIA [id number] [address] [place] [address] [place] Platelet mean volume (Bld) [Entitic vol] 9.5 fL Normal 9.0-12.7 [facility] Comment on above: Order Comment: Speci men Type: BLOOD SPECIMEN [facility] Address: [address] [place] [address] Performed By: #### 5 8410-2 #### [facility] CLIA [id number] [address] [place] [address] [place] Platelets (Bld) [#/Vol] 287 10*3/uL Normal 150-400 [facility] Comment on above: Order Comment: Speci men Type: BLOOD SPECIMEN [facility] Address: [address] [place] [address] Performed By: #### 5 8410-2 #### [facility] CLIA [id number] [address] [place] [address] [place] RBC (Bld) [#/Vol] 4.97 10*6/uL Normal 3.90-5.20 [facility] Comment on above: Order Comment: Speci men Type: BLOOD SPECIMEN [facility] Address: [address] [place] [address] Performed By: #### 5 8410-2 #### [facility] CLIA [id number] [address] [place] [address] [place] WBC (Bld) [#/Vol] 6.71 10*3/uL Normal 3.70-11.00 [facility] Comment on above: Order Comment: Shannan balbuena Type: BLOOD SPECIMEN [facility] Address: [address] [place] [address] Performed By: #### 5 8410-2 #### [facility] CLIA [id number] [address] [place] [address] [place] [employer]MER [employer] DEMYELINATING DISEASE EV ALUATION, SERUMon 09-21-2023 TURNER AND [employer]MER [employer]OM[employer]IC DEMYELINATING DISEASE INTERP, S SEE NOTE Normal [facility] Comment on above: Order Comment: Shannan balbuena Type: CEREBROSPINAL FLUID SPECIMEN [facility] Address: [address] [place] [address] Result Comment: No i nformative autoantibodies were detected in this evaluation. A negative result does not preclude a diagnosis of an inflammatory [employer] demyelinating disorder. Performed By: #### L YE9618, 41952-0 #### [facility] CLIA [id number] [address] [place] [address] [place] MYELIN OLIGODENDROCYTE GLYCOPROTEIN (MOG-IGG1) FLUORESCENCE-ACTIVATED CELL Negative Normal Negative [facility] [facility] Comment on above: Order Comment: Shannan balbuena Type: CEREBROSPINAL FLUID SPECIMEN Ordering Facility: [facility] Address: [address] [place] [address] Result Comment: ADDITIONAL INFORMATION This test was developed and its performance characteristics determined by [facility] in a manner consistent with CLIA requirements. This test has not been cleared or approved by the U.S. Food and Drug Administration. Test Performed by: [facility] [place] [address] Breaker Up Machine Operator: Ferny Ramires M.D. Ph.D.; CLIA# [id number] Performed By: #### L [id number], 12929-7 #### [facility] CLIA [id number] [address] [place] [address] [place] NMO/AQPF FACS, S Negative Normal Negative [facility] Comment on above: Order Comment: Speci men Type: CEREBROSPINAL FLUID SPECIMEN Ordering Facility: [facility] Address: [address] [place] [address] Result Comment: ADDITIONAL INFORMATION This test was developed and its performance characteristics determined by [facility] in a manner consistent with CLIA requirements. This test has not been cleared or approved by the U.S. Food and Drug Administration. Performed By: #### L [id number], 78841-2 #### [facility] CLIA [id number] [address] [place] [address] [place] CSF MANUAL DIFFon 09-21-2023 DIF TTL, CSF 100 cells counted Normal [facility] Comment on above: Order Comment: Speci men Type: CEREBROSPINAL FLUID SPECIMEN Ordering Facility: [facility] Address: [address] [place] [address] Performed By: #### L [id number], 01323-0 #### [facility] CLIA [id number] [address] [place] [address] [place] LYMPH%, CSF 79 % Normal 50-90 [facility] Comment on above: Order Comment: Speci men Type: CEREBROSPINAL FLUID SPECIMEN Ordering Facility: [facility] Address: [address] [place] [address] Performed By: #### L [id number], 28581-7 #### [facility] CLIA [id number] [address] [place] [address] [place] MONO%, CSF 7 % Low 10-50 [facility] Comment on above: Order Comment: Speci men Type: CEREBROSPINAL FLUID SPECIMEN Ordering Facility: [facility] Address: [address] [place] [address] Performed By: #### L [id number], 68885-8 #### [facility] CLIA [id number] [address] [place] [address] [place] NEUT%, CSF 14 % High 0-3 [facility] Comment on above: Order Comment: Speci men Type: CEREBROSPINAL FLUID SPECIMEN Ordering Facility: [facility] Address: [address] [place] [address] Performed By: #### L ZR0623, 57023-9 #### [facility] CLIA [id number] [address] [place] [address] [place] CYTOLOGY NON-GYNon 4 CASE REPORT Normal [facility] Comment on above: Order Comment: Speci men Type: CEREBROSPINAL FLUID SPECIMENOrdering Facility: [facility] Address: [address] [place] [address] Result Comment: [facility] Cytology Report Case: [id number] Authorizing Provider: Klaus Stevenson MD Collected: 09/21/2023 01:24 AM Ordering Location: [place] [address] Received: 09/21/2023 10:18 AM Pathologist: Constantino Rader MD, PhD Specimen: CSF, Lumbar Puncture Performed By: #### C YTONON ####[facility] [id number] [place] [address] [place] CLINICAL HISTORY replasing transverse myelitis Normal [facility] Comment on above: Order Comment: Speci men Type: CEREBROSPINAL FLUID SPECIMENOrdering Facility: [facility] Address: [address] [place] [address] Performed By: #### C YTONON ####[facility] [id number] [place] [address] [place] FINAL DIAGNOSIS Normal [facility] Comment on above: Order Comment: Speci men Type: CEREBROSPINAL FLUID SPECIMENOrdering Facility: [facility] Address: [address] [place] [address] Result Comment: A - CSF, Lumbar Puncture, Cerebrospinal Fluid Negative for malignant cells. Performed By: #### C YTONON ####[facility] [id number] [place] [address] [place] FINAL PERFORMING LAB Normal [facility] Comment on above: Order Comment: Speci men Type: CEREBROSPINAL FLUID SPECIMENOrdering Facility: [facility] Address: [address] [place] [address] Result Comment: Tech nical component, armature winder repair screening performed at [facility], [address] [place], [place] [id number] CLIA# [id number] Diagnostic interpretation performed at [facility], [address] [place], [place] [id number] CLIA# [id number] Information Receptionist: Benny Jaime M.D. Performed By: #### C YTONON ####[facility] [id number] [place] [address] [place] GROSS DESCRIPTION Normal [facility] Comment on above: Order Comment: Speci men Type: CEREBROSPINAL FLUID SPECIMENOrdering Facility: [facility] Address: [address] [place] [address] Result Comment: A. C SF, Lumbar Puncture 1.5 cc clear colorless fluid. ThinPrep prepared. Performed By: #### C YTONON ####[facility] [id number] [place] [address] [place] Cell count panel (CSF)on Clarity (CSF) Clear Normal Clear [facility] Comment on above: Order Comment: Speci men Type: CEREBROSPINAL FLUID SPECIMEN Ordering Facility: [facility] Address: [address] [place] [address] Performed By: #### L [id number], 39796-9 #### [facility] CLIA [id number] [address] [place] [address] [place] Clarity (Unsp spec) Not Indicated Normal Clear Cl [facility] Comment on above: Order Comment: Speci men Type: CEREBROSPINAL FLUID SPECIMEN Ordering Facility: [facility] Address: [address] [place] [address] Performed By: #### L FI2624, 81678-0 #### [facility] CLIA [id number] [address] [place] [address] [place] Color (CSF) Colorless Normal Colorless [facility] Comment on above: Order Comment: Speci men Type: CEREBROSPINAL FLUID SPECIMEN [facility]ing Facility: [facility] Address: [address] [place] [address] Performed By: #### L [id number], 43889-9 #### [facility] CLIA [id number] [address] [place] [address] [place] Color (Spun CSF) Not Indicated Normal Colorless [facility] Comment on above: Order Comment: Speci men Type: CEREBROSPINAL FLUID SPECIMEN Ordering Facility: [facility] Address: [address] [place] [address] Performed By: #### L [id number], 69502-1 #### [facility] CLIA [id number] [address] [place] [address] [place] CSF TUBE NUMBER Tube 4 Normal [facility] Comment on above: Order Comment: Speci men Type: CEREBROSPINAL FLUID SPECIMEN Ordering Facility: [facility] Address: [address] [place] [address] Performed By: #### L ZQ5324, 01380-1 #### [facility] CLIA [id number] [address] [place] [address] [place] RBC Manual cnt (CSF) [#/Vol] 366 cells/uL High 0-5 [facility] Comment on above: Order Comment: Speci men Type: CEREBROSPINAL FLUID SPECIMEN Ordering Facility: [facility] Address: [address] [place] [address] Performed By: #### L IJ0949, 10119-9 #### [facility] CLIA [id number] [address] [place] [address] [place] WBC Manual cnt (CSF) [#/Vol] 12 cells/uL High 0-5 [facility] Comment on above: Order Comment: Speci men Type: CEREBROSPINAL FLUID SPECIMEN Ordering Facility: [facility] Address: [address] [place] [address] Performed By: #### L SD0816, 35368-5 #### [facility] CLIA [id number] [address] [place] [address] OF SUE Cryptoc Ag Spec Ql LAon 05-0 Cryptococcus sp Ag LA Ql (Unsp spec) CRYPTOCOCCAL AG RESULT: Cryptococcal Antigen NOT DETECTED by line flow immunoassay Normal [facility] Comment on above: Performed By: #### 4 3228-6, 606-4, FUNCSF ####[facility]IA [id number] [address] [place] FUNGAL CSF CULTUREon 024 FUNGAL CSF CULTURE CULTURE, FUNGAL: No Fungus isolated after 28 days Normal [facility] Comment on above: Performed By: #### 4 3228-6, 606-4, FUNCSF ####[facility]IA [id number] [address] [place] Glucose CSF-mCncon 4 Glucose (CSF) [Mass/Vol] 67 mg/dL Normal 40-70 [facility] Comment on above: Order Comment: Speci men Type: CEREBROSPINAL FLUID SPECIMENOrdering Facility: [facility] Address: [address] [place] [address] Result Comment: Lumb ar CSF glucose values of healthy patients are approximately 60% of the plasma values and must always be compared with a concurrently measured plasma value for adequate clinical interpretation. References: 1. Glucose HK (GLUC3) [package insert V 12.0 [place]i]. [employer], [place], [place]. September 2015. 2. Iqra Juarez, Paul H. (2015). Chapter 7: Glucose and Lactate. FCarin Navarro al.(eds.), Cerebrospinal Fluid in Clinical Neurology. Fajardo: [employer]. Performed By: #### 2 880-3, HSPCR, 2342-4, 88723-2 ####[facility] LAB[facility]IA [id number] [place] [address] [place]#### VZPCR ####[facility] [id number] [place] [address] HERPES SIMPLEX VIRUS (HSV-1 AND HSV-2), QUALITATIVE PCR, CSFon 09-21-2023 HERPES SIMPLEX VIRUS (HSV-1 AND HSV-2), QUALITATIVE PCR, CSF HERPES SIMPLEX VIRUS 1 (HSV-1) DNA: Not detected HERPES SIMPLEX VIRUS 2 (HSV-2) DNA: Not detected Normal [facility] Comment on above: Performed By: #### 2 880-3, HSPCR, 2342-4, 16966-7 ####[facility] [id number] [place] [address] [place]#### VZPCR ####[facility] [id number] [place] [address] INTERLEUKIN 2 RECEPTOR, SOLU BLE, SERUMon 09-21-2023 INTERLEUKIN-2 RECEPTOR 731.8 pg/mL Normal 175.3-858.2 [facility] Comment on above: Order Comment: Speci men Type: BLOOD SPECIMEN [facility] Facility: [facility] Address: [address] [place] [address] Result Comment: INTE RPRETIVE INFORMATION: Cytokines Results are used to understand the pathophysiology of immune, infectious, or inflammatory disorders, or may be used for research purposes. This test was developed and its performance characteristics determined by [facility]. It has not been cleared or approved by the US Food and Drug Administration. This test was performed in a CLIA certified laboratory and is intended for clinical purposes. Performed By: [facility] [address] [place] [address] Information Receptionist: Cole rCaft MD, PhD CLIA Number: [id number] Performed By: #### 5 8410-2 #### [facility] CLIA [id number] [address] [place] [address] [place] Magnesium SerPl-ncon 09-20 Magnesium [Mass/Vol] 2.1 mg/dL Normal 1.7-2.3 [facility] Comment on above: Order Comment: Speci esha Type: BLOOD SPECIMEN [facility] Facility: [facility] Address: [address] [place] [address] Performed By: #### 5 8410-2 #### [facility] CLIA [id number] [address] [place] [address] [place] Prot CSF-ncon 09-21-2023 Protein (CSF) [Mass/Vol] 50 mg/dL High 15-45 [facility] Comment on above: Order Comment: Shannan balbuena Type: CEREBROSPINAL FLUID SPECIMENOrdering Facility: [facility] Address: [address] [place] [address] Result Comment: The sample contains red blood cells, which may indicate blood contamination due to a traumatic lumbar puncture. This may falsely increase the concentration of protein in CSF and invalidate the protein result. Interpret CSF protein with caution and within the context of the red blood cell count, if available. Performed By: #### 2 880-3, [facility], 2342-4, 36015-9 ####[facility] LAB[facility]IA [id number] [place] [address] [place]#### VZPCR ####[facility] [id number] [place] [address] [address] [place], [place] [address]on 09-21-2023 Albumin [Mass/Vol] 4.4 g/dL Normal 3.9-4.9 [facility] Comment on above: Order Comment: Speci men Type: BLOOD SPECIMEN [facility]: [facility] Address: [address] [place] [address] Performed By: #### 5 8410-2 #### [facility] CLIA [id number] [address] [place] [address] [place] Anion gap [Moles/Vol] 11 mmol/L Normal 9-18 [facility] Comment on above: Order Comment: Speci men Type: BLOOD SPECIMEN [facility] Facility: [facility] Address: [address] [place] [address] Performed By: #### 5 8410-2 #### [facility] CLIA [id number] [address] [place], [place] [address] [place] Calcium [Mass/Vol] 9.5 mg/dL Normal 8.5-10.2 [facility] Comment on above: Order Comment: Speci men Type: BLOOD SPECIMEN [facility] Facility: [facility] Address: [address] [place] [address] Performed By: #### 5 8410-2 #### [facility] CLIA [id number] [address] [place] [address] [place] Chloride [Moles/Vol] 103 mmol/L Normal 97-105 [facility] Comment on above: Order Comment: Speci men Type: BLOOD SPECIMEN [facility] Facility: [facility] Address: [address] [place] [address] Performed By: #### 5 8410-2 #### [facility] CLIA [id number] [address] [place] [address] [place] CO2 [Moles/Vol] 22 mmol/L Normal 22-30 [facility] Comment on above: Order Comment: Speci men Type: BLOOD SPECIMEN [facility] Facility: [facility] Address: [address] [place] [address] Performed By: #### 5 8410-2 #### [facility] CLIA [id number] [address] [place] [address] [place] Creatinine [Mass/Vol] 0.76 mg/dL Normal 0.58-0.96 [facility] Comment on above: Order Comment: Speci men Type: BLOOD SPECIMEN [facility] Facility: [facility] Address: [address] [place] [address] Performed By: #### 5 8410-2 #### [facility] CLIA [id number] [address] [place] [address] [place] Creatinine and Glomerular filtration rate.predicted panel (S/P/Bld) 112 mL/min/1.73m??? Normal >=60 [facility] Comment on above: Order Comment: Shannan balbuena Type: BLOOD SPECIMEN [facility] Facility: [facility] Address: [address] [place] [address] Result Comment: Gisselle mated Glomerular Filtration Rate (eGFR) is calculated using the 2020 CKD-EPI creatinine equation. This equation utilizes serum creatinine, sex, and age as parameters. The creatinine assay has traceable calibration to isotope dilution-mass spectrometry. Refer to KDIGO guidelines for clinical interpretation. In patients with unstable renal function, e.g. those with acute kidney injury, the eGFR may not accurately reflect actual GFR. Performed By: #### 5 8410-2 #### [facility] CLIA [id number] [address] [place] [address] [place] Glucose [Mass/Vol] 113 mg/dL High 74-99 [facility] Comment on above: Order Comment: Shannan balbuena Type: BLOOD SPECIMEN [facility]: [facility] Address: [address] [place] [address] Result Comment: The [place] Diabetes Association (ADA) provides guidance for cutoff values for fasting glucose and random glucose. The ADA defines fasting as no caloric intake for at least 8 hours. Fasting plasma glucose results between 100 to 125 mg/dL indicate increased risk for diabetes (prediabetes). Fasting plasma glucose results greater than or equal to 126 mg/dL meet the criteria for diagnosis of diabetes. In the absence of unequivocal hyperglycemia, results should be confirmed by repeat testing. In a patient with classic symptoms of hyperglycemia or hyperglycemic crisis, random plasma glucose results greater than or equal to 200 mg/dL meet the criteria for diagnosis of diabetes. Reference: Standards of Medical Care in Diabetes 2016, [place] [employer] Association. Diabetes Care. 2016.39(Suppl 1). Performed By: #### 5 8410-2 #### [facility] CLIA [id number] [address] [place], [place] [address] [place] Phosphate [Mass/Vol] 3.9 mg/dL Normal 2.7-4.8 [facility] Comment on above: Order Comment: Speci men Type: BLOOD SPECIMEN [facility] Facility: [facility] Address: [address] [place] [address] Performed By: #### 5 8410-2 #### [facility] CLIA [id number] [address] [place] [address] [place] Potassium [Moles/Vol] 4.2 mmol/L Normal 3.7-5.1 [facility] Comment on above: Order Comment: Speci men Type: BLOOD SPECIMEN [facility] Address: [address] [place] [address] Performed By: #### 5 8410-2 #### [facility] CLIA [id number] [address] [place] [address] [place] Sodium [Moles/Vol] 136 mmol/L Normal 136-144 [facility] Comment on above: Order Comment: Speci men Type: BLOOD SPECIMEN [facility] Address: [address] [place] [address] Performed By: #### 5 8410-2 #### [facility] CLIA [id number] [address] [place] [address] [place] Urea nitrogen [Mass/Vol] 12 mg/dL Normal 7-21 [facility] Comment on above: Order Comment: Speci men Type: BLOOD SPECIMEN [facility] Address: [address] [place] [address] Performed By: #### 5 8410-2 #### [facility] CLIA [id number] [address] [place] [address] [place] THERAPY NTon 09-21-2023 THERAPY NT HNO ID: [id number] Author: LADI PELAEZ, PT, DPT Service: ? Author Type: Physical Therapist Type: Therapy (PT/OT/Speech/Resp) Filed: 09/21/2023 12:45 Note Text: Physical Therapy Evaluation Summary SERVICE DATE: 09/21/2023 SERVICE TIME: 1100 to 1147 ROOM: [place] [address] PT 6 Clicks Score: 18 DISCHARGE RECOMMENDATIONS Outpatient PT Recommended Discharge Disposition Comments: Pending further progress with mobility and pain management. If mobility unable to progress, may benefit from stay in [place]. PT will continue to assess ASSESSMENT Response to Therapy Interventions: Good Participation in Activities, Pain Pt with significant pain (attributes to LP yesterday), however very motivated to move and participate as able. Pt completes bed mobility with Scooter and able to complete sit<>stand and very small steps with CGA using WW. Pt using significant UE support on WW to off load LE and for pain management. Pt unable to tolerate further due to increased pain and PT assisting back to supine in bed. RN and MD notified about pain. 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 Relevant Past Medical History: ADHD and depression HOME LIVING Patient Lives With: Significant Other, Family (fiance) Assistance Available: 24-Hour Entry To Home: Stairs (2nd floor apartment) Number Of Stairs To Bed/Bath: One level once in apartment Tub/Shower Type: tub shower Laundry: pt completes, can assist Equipment Owned: Grab Bars- Shower, Rollator PRIOR FUNCTIONAL LEVEL Within Functional Limits Prior to recent flair up pt was IND, no AD. Recently pt has been receiving help for I/ADLs, states she is able to complete ADLs on her own but it is painful/fatiguing so she recieves help. Very sensitive to heat. Not able to participate in caring for her son, states she can hold him for ~10 minutes at a time. -falls, using rollator recently SUBJECTIVE agreeable to PT THERAPY DIAGNOSIS Reduced mobility-other TREATMENT INTERVENTIONS Evaluation, Therapeutic Activity (74644) Timed Code Treatment (minutes): 32 Skilled Treatment Time (minutes): 47 TRAINING AND EDUCATION PROVIDED Advanced Balance Activities, Anatomy and Impact on Deficits, Assistive Device Use, Bed Mobility, Benefits of In-Hospital Mobility, Discharge Planning, Disease Specific Education, Equipment, Exercise Program, Expected Functional Level, Falls Prevention, Gait Pattern, Reduction of Deviations, Patient Exercise/Therapy Program Support Needs, Positioning, Precautions/Restrictions , Sitting Balance, Role of Physical Therapy, Standing Balance, Transfers, Treatment Protocol THERAPEUTIC SKILLS USED Activity Dosing, Assessment of Tolerance Including Vitals Response to Activity, Cues for Sequencing/Proper Technique for Activity, Cuing Tactile, Cuing Verbal, Movement Facilitation, Physical Assist, Teach-Back for Education FUNCTIONAL STATUS Bed Mobility Supine To Sit: Minimal Assistance, Additional Information log roll to assist with pain management Sit to Supine: Minimal Assistance Scooting: Contact Guard Assistance Transfers Sit To Stand: Contact Guard Assistance, Additional Information bed elevated Stand To Sit: Contact Guard Assistance Bed to Chair Gait Contact Guard Assistance, Additional Information very limited due to pain, had previously ambulated to/from bathroom with nursing Gait Device: Wheeled Walker General Deviations/Observations: Malena decreased, Shuffling Gait, Step length decreased, UE weight bearing on assistive device excessive Gait Distance (feet): 2' Stairs ROM Right Lower Extremity ROM Comments: WFL Left Lower Extremity ROM Comments: WFL STRENGTH Right Lower Extremity Strength Comments: grossly 3+/5 major muscle groups, some tremors with functional mobility Left Lower Extremity Strength Comments: grossly 4/5 major muscle groups BALANCE Static Sitting Balance: Good Dynamic Sitting Balance: Good Static Standing Balance: Fair Dynamic Standing Balance: Fair GOALS Patient will demonstrate progress to optimize functional mobility, maximize activity tolerance and endurance to maximize function upon discharge. Rehab Potential: Excellent Progress Toward Goals: Progressing as expected PLAN PT Frequency: 5 Times Per Week Treatment Interventions: Education, Strengthening, Functional Mobility Training, Balance Training, Neuromuscular Re-education Plan for Next Visit: Bed Mobility, Chair Transfer Training, Fall Prevention, Gait Training, Exercise Instruction/Handout, Standing Tolerance SIGNATURE: Ladi Pelaez PT, DPT PATIENT NAME: Ladi Bernstein DATE: September 21, 2023 TIME: 12:44 PM Normal [facility] THERAPY NT HNO ID: [id number] Author: PITA LOCKETT OT/L Service: Occupational Therapy Author Type: Occupational Therapist Type: Therapy (PT/OT/Speech/Resp) Filed: 09/21/2023 12:04 Note Text: Occupational Therapy Evaluation Summary SERVICE DATE: 09/21/2023 SERVICE TIME: 08 to 30 ROOM: [place] [address] OT 6 Clicks Score: 18 DISCHARGE RECOMMENDATIONS Outpatient OT Recommended Discharge Disposition Comments: Pt has first appt with [facility] prior to admit, recommend OPOT be completed at [facility] Anticipated Discharge Needs: Physical Assist at Home Physical Assist at Home for: Cleaning, Laundry, Meals, Medication Management, Self Care, Shopping, Transportation Recommended Discharge Equipment: Extended tub bench ASSESSMENT Response to Therapy Interventions: Good Participation in Activities, Pain Pt in bed on entry and agreeable to OT. States she is in pain from LP yesterday, participated in bed level session. Pt reports numbness in digits 3-5 that travels up to her elbows. Some difficulty with fine motor activity this date but able to complete with increased time and effort. Some tremoring in R hand as pt became fatigued. OT provided education on energy conservation, benefits of continued therapy post d/c, and recommended DME. EOS pt in bed with call light in reach. 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 Recently pt has been receiving help for I/ADLs, states she is able to complete ADLs on her own but it is painful/fatiguing so she recieves help. Very sensitive to heat. Not able to participate in caring for her son, states she can hold him for ~10 minutes at a time. -falls Baseline Cognition: Oriented to self, Oriented to place, Oriented to time, Oriented to situation SUBJECTIVE Are there other young people here? COGNITION Responsiveness: Alert, Awake Follows Commands: 3-step Commands Cog 6 Start of Session Total Points (Max Score = 24): 24 (09/21/23) Cog 6 End of Session Total Points (Max Score = 24): 24 (09/21/23) 4AT Score: 0 (09/21/23) Delirium Positive/Negative: Negative (09/21/23) THERAPY DIAGNOSIS Decreased activities of daily living (ADL), Reduced mobility-other, Muscle Weakness (generalized) TREATMENT INTERVENTIONS Evaluation, Self Skilled Nursing Management ([id number]) Timed Code Treatment (minutes): 23 Skilled Treatment Time (minutes): 38 TRAINING AND EDUCATION PROVIDED Activity Adaptation/Compensatory Strategies, Adaptive Equipment/DME, Assistive Device Use, Bed Mobility, Benefits of In-Hospital Mobility, Coping Skills/Resiliency, Disease Specific Education, Energy Conservation, Fine Motor Coordination, Grooming Tasks, Health Literacy, Health Management of Chronic Conditions, Home Set-up/Modifications, Life Roles/Routines/Habits, Role of Occupational Therapy, Pain Management THERAPEUTIC SKILLS USED Activity Dosing, Bed in Chair Position, Cues for Sequencing/Proper Technique for Activity, Movement Facilitation, Physical Assist, Task Analysis Learning, Teach-Back for Education, Therapeutic Use of Self FUNCTIONAL STATUS Activities of Daily Living Assist Level Additional Information Feeding Set Up Grooming Set Up Bathing Upper Body Independent Bathing Lower Body Moderate Assistance Dressing Upper Body Stand By Assistance Dressing Lower Body Moderate Assistance Toileting Minimal Assistance Mobility Assist Level Additional Information Bed Mobility Rolling: Stand By Assistance Sit to Stand Stand to Sit Bed to Chair Toilet/Commode Shower Functional Mobility GOALS Patient will demonstrate progress to optimize self-care activities, cognitive and/or coping to maximize function upon discharge. Rehab Potential: Good PLAN OT Frequency: 4 Times Per Week Treatment Interventions: Education, Self Care/Home Management, Energy Conservation Training, Strengthening, Functional Mobility Training, Balance Training, Neuromuscular Re-education, Modalities, Pain Management, Coping Strategy Education Plan for Next Visit: Bed Mobility, Chair/Commode Transfer Training, Coping, Energy Conservation, Grooming Training SIGNATURE: MARI Henriquez, OT/L PATIENT NAME: Ladi Bernstein DATE: September 21, 2023 TIME: 9:59 AM Normal [facility] [place] CSFon 4 Albumin (CSF) [Mass/Vol] 34.2 mg/dL High 10.0-30.0 [facility] Comment on above: Order Comment: Speci men Type: CEREBROSPINAL FLUID SPECIMENOrdering Facility: [facility] Address: [address] [place] [address] Performed By: #### T OURTCSF, BDOLGCSF ####[facility]IA [id number] [place] [address] [place] Albumin [Mass/Vol] 4300 mg/dL Normal 9470-2235 [facility] Comment on above: Order Comment: Speci men Type: CEREBROSPINAL FLUID SPECIMENOrdering Facility: [facility] Address: [address] [place] [address] Performed By: #### T OURTCSF, BDOLGCSF ####[facility]IA [id number] [place] [address] [place] IgG (CSF) [Mass/Vol] 8.7 mg/dL High 1.0-3.0 [facility] Comment on above: Order Comment: Speci men Type: CEREBROSPINAL FLUID SPECIMENOrdering Facility: [facility] Address: [address] [place] [address] Result Comment: Ther e is visual evidence suggesting that the sample may be contaminated with blood, which may indicate a traumatic lumbar puncture and/or a clinical condition causing impaired capvf-kqtvf-zxmjqsx integrity. This may falsely increase the concentration of IgG and albumin in CSF and compromise the calculations. Interpret the results with caution and within the context of the patient's clinical history and CSF red blood cell count, if available. Performed By: #### T OURTCSF, BDOLGCSF ####[facility] LABCLIA [id number] [place] [address] [place] IgG [Mass/Vol] 900 mg/dL Normal 700-1600 [facility] Comment on above: Order Comment: Speci men Type: CEREBROSPINAL FLUID SPECIMENOrdering Facility: [facility] Address: [address] [place] [address] Performed By: #### T OURTCSF, BDOLGCSF ####[facility]CLIA [id number] [place] [address] [place] IgG clearance/Albumin clearance (S+CSF) [Ratio] 1.22 High 0.00-0.61 [facility] Comment on above: Order Comment: Speci men Type: CEREBROSPINAL FLUID SPECIMENOrdering Facility: [facility] Address: [address] [place] [address] Performed By: #### T OURTCSF, BDOLGCSF ####[facility] LABCLIA [id number] [place] [address] [place] IgG synthesis rate Calc (S+CSF) [Mass/Time] 24.3 mg/day High 0.0-3.0 [facility] Comment on above: Order Comment: Speci men Type: CEREBROSPINAL FLUID SPECIMENOrdering Facility: [facility] Address: [address] [place] [address] Performed By: #### T OURTCSF, BDOLGCSF ####[facility]CLIA [id number] [place] [address] [place] IgG/Albumin (CSF) [Mass ratio] 0.25 High 0.06-0.17 [facility] Comment on above: Order Comment: Speci men Type: CEREBROSPINAL FLUID SPECIMENOrdering Facility: [facility] Address: [address] [place] [address] Performed By: #### T OURTCSF, BDOLGCSF ####[facility] LABCLIA [id number] [place] [address] [place] VARICELLA ZOSTER PCRon 09-20 VARICELLA ZOSTER PCR SPECIMEN SOURCE (VZ PCR): CSF VARICELLA ZOSTER VIRUS: Not Detected NOT DETECTED - A negative result does not rule out the presence of PCR inhibitors in the patient specimen or assay specific nucleic acid in concentrations below the level of detection by the assay. INTERPRETIVE INFORMATION: Varicella-Zoster Virus by PCR This test was developed and its performance characteristics determined by [facility]. It has not been cleared or approved by the [place] Food and Drug Administration. This test was performed in a CLIA certified laboratory and is intended for clinical purposes. Performed By: [facility] [address] [place] [address] Information Receptionist: Cole Craft MD, PhD CLIA Number: [id number] Normal [facility] Comment on above: Performed By: #### 2 880-3, [facility], 2342-4, 29248-5 ####[facility] LABCLIA [id number] [place] [address] [place]#### VZPCR ####[facility] [id number] [place] [address] VDRL CSF-Titron 09-21-2023 Reagin Ab VDRL (CSF) [Titer] Non-Reactive Normal Nonreactive [facility] Comment on above: Order Comment: Speci men Type: CEREBROSPINAL FLUID SPECIMENOrdering Facility: [facility] Address: [address] [place] [address] Result Comment: CSF VDRL test is used an aid in diagnosis of neurosyphilis. CSF VDRL detects non-treponemal antibodies and has lower sensitivity than CSF treponemal tests such as FTA, therefore a negative result cannot reliably rule out neurosyphilis. Clinical correlation is required. Performed By: #### 2 880-3, [facility], 2342-4, 70872-5 ####[facility] LABCLIA [id number] [place] [address] [place]#### VZPCR ####[facility] [id number] [place] [address] A-Tocopherol Vit E [facility] 09-20-2023 Alpha tocopherol [Mass/Vol] 14.6 mg/L Normal 6.0-23.0 [facility] Comment on above: Order Comment: Speci men Type: BLOOD SPECIMEN [facility] Address: [address] [place] [address] Performed By: #### 5 8410-2 #### [facility] CLIA [id number] [address] [place] [address] [place] CANDY BY IFA WITH REFLEXon Nuclear Ab Ql (S) Negative Normal Negative [facility] Comment on above: Order Comment: Speci men Type: BLOOD SPECIMEN [facility] Address: [address] [place] [address] Result Comment: Anti -nuclear antibody test is used as an aid in diagnosis of systemic autoimmune diseases. Where positive and clinically warranted, follow-up using disease-specific testing is recommended. Low positive titers are not uncommon with advanced age, certain chronic infections, and malignancies among others. Test methodology: Indirect fluorescence immunoassay (IFA) using HEp-2 cells. Performed By: #### 5 8410-2 #### [facility] CLIA [id number] [address] [place] [address] [place] Alpha tocopherol [Mass/Vol]o n 09-20-2023 Beta+gamma tocopherol [Mass/Vol] 2.1 mg/L Normal 0.3-3.2 [facility] Comment on above: Order Comment: Shannan balbuena Type: BLOOD SPECIMEN [facility] Address: [address] [place] [address] Result Comment: This test was developed and its performance characteristics determined by [facility] [place] ([facility]). It has not been cleared or approved by the FDA. [facility] is regulated under CLIA as qualified to perform high-complexity testing. This test is used for clinical purposes. It should not be regarded as investigational or for research. Performed By: #### 5 8410-2 #### [facility] CLIA [id number] [address] [place] [address] [place] B. burgdorferi IgG and IgM p rika (S)on 09-20-2023 B. burgdorferi IgG+IgM Qn (S) Negative Normal Negative [facility] Comment on above: Order Comment: Shannan balbuena Type: BLOOD SPECIMENOrdering Facility: [facility] Address: [address] [place] [address] Result Comment: Rece nt infection with B. burgdorferi sensu lato cannot be excluded if the specimen collected within four weeks after the onset of signs and symptoms or within six weeks after a known tick exposure. Clinical and epidemiological correlation is required. Performed By: #### 3 4942-3 ####[facility] LABCLIA [id number] [place] [address] [place] CBC W Auto Differential pane l (Bld)on 09-20-2023 Basophils (Bld) [#/Vol] 0.04 10*3/uL Normal <0.11 [facility] Comment on above: Order Comment: Speci men Type: CEREBROSPINAL FLUID SPECIMEN [facility] Address: [address] [place] [address] Performed By: #### L [id number], 23353-4 #### [facility] CLIA [id number] [address] [place] [address] [place] Basophils/100 WBC (Bld) 0.6 % Normal [facility] Comment on above: Order Comment: Speci men Type: CEREBROSPINAL FLUID SPECIMEN [facility] Address: [address] [place] [address] Performed By: #### L [id number], 21561-1 #### [facility] CLIA [id number] [address] [place] [address] [place] Differential cell count method Nom (Bld) Auto Normal [facility] Comment on above: Order Comment: Speci men Type: CEREBROSPINAL FLUID SPECIMEN [facility] Address: [address] [place] [address] Performed By: #### L [id number], 04149-1 #### [facility] CLIA [id number] [address] [place] [address] [place] Eosinophils (Bld) [#/Vol] 0.07 10*3/uL Normal <0.46 [facility] Comment on above: Order Comment: Speci men Type: CEREBROSPINAL FLUID SPECIMEN [facility] Address: [address] [place] [address] Performed By: #### L [id number], 68139-6 #### [facility] CLIA [id number] [address] [place] [address] [place] Eosinophils/100 WBC (Bld) 1.0 % Normal [facility] Comment on above: Order Comment: Speci men Type: CEREBROSPINAL FLUID SPECIMEN [facility] Address: [address] [place] [address] Performed By: #### L [id number], 89173-4 #### [facility] CLIA [id number] [address] [place] [address] [place] Erythrocyte distribution width (RBC) [Ratio] 15.2 % High 11.5-15.0 [facility] Comment on above: Order Comment: Speci men Type: CEREBROSPINAL FLUID SPECIMEN [facility] Address: [address] [place] [address] Performed By: #### L [id number], 22279-9 #### [facility] CLIA [id number] [address] [place] [address] [place] Hematocrit (Bld) [Volume fraction] 41.4 % Normal 36.0-46.0 [facility] Comment on above: Order Comment: Speci men Type: CEREBROSPINAL FLUID SPECIMEN [facility] Address: [address] [place] [address] Performed By: #### L [id number], 55193-3 #### [facility] CLIA [id number] [address] [place] [address] [place] Hemoglobin (Bld) [Mass/Vol] 13.3 g/dL Normal 11.5-15.5 [facility] Comment on above: Order Comment: Speci men Type: CEREBROSPINAL FLUID SPECIMEN [facility] Address: [address] [place] [address] Performed By: #### L [id number], 64218-7 #### [facility] CLIA [id number] [address] [place] [address] [place] Immature granulocytes (Bld) [#/Vol] 10*3/uL Normal <0.10 [facility] Comment on above: Order Comment: Speci men Type: CEREBROSPINAL FLUID SPECIMEN [facility] Address: [address] [place] [address] Performed By: #### L [id number], 48200-8 #### [facility] CLIA [id number] [address] [place] [address] [place] Immature granulocytes/100 WBC (Bld) 0.3 % Normal [facility] Comment on above: Order Comment: Speci men Type: CEREBROSPINAL FLUID SPECIMEN [facility] Address: [address] [place] [address] Performed By: #### L [id number], 24189-8 #### [facility] CLIA [id number] [address] [place] [address] [place] Lymphocytes (Bld) [#/Vol] 1.87 10*3/uL Normal 1.00-4.00 [facility] Comment on above: Order Comment: Speci men Type: CEREBROSPINAL FLUID SPECIMEN [facility] Address: [address] [place] [address] Performed By: #### L [id number], 08670-6 #### [facility] CLIA [id number] [address] [place] [address] [place] Lymphocytes/100 WBC (Bld) 26.3 % Normal [facility] Comment on above: Order Comment: Speci men Type: CEREBROSPINAL FLUID SPECIMEN [facility] Address: [address] [place] [address] Performed By: #### L [id number], 08559-5 #### [facility] CLIA [id number] [address] [place] [address] [place] MCH (RBC) [Entitic mass] 27.3 pg Normal 26.0-34.0 [facility] Comment on above: Order Comment: Speci men Type: CEREBROSPINAL FLUID SPECIMEN [facility] Address: [address] [place] [address] Performed By: #### L [id number], 19233-3 #### [facility] CLIA [id number] [address] [place] [address] [place] MCHC (RBC) [Mass/Vol] 32.1 g/dL Normal 30.5-36.0 [facility] Comment on above: Order Comment: Speci men Type: CEREBROSPINAL FLUID SPECIMEN [facility] Address: [address] [place] [address] Performed By: #### L [id number], 30826-9 #### [facility] CLIA [id number] [address] [place] [address] [place] MCV (RBC) [Entitic vol] 85.0 fL Normal 80.0-100.0 [facility] Comment on above: Order Comment: Speci men Type: CEREBROSPINAL FLUID SPECIMEN [facility] Address: [address] [place] [address] Performed By: #### L [id number], 97895-5 #### [facility] CLIA [id number] [address] [place] [address] [place] Monocytes (Bld) [#/Vol] 0.43 10*3/uL Normal <0.87 [facility] Comment on above: Order Comment: Speci men Type: CEREBROSPINAL FLUID SPECIMEN [facility] Address: [address] [place] [address] Performed By: #### L [id number], 82596-8 #### [facility] CLIA [id number] [address] [place] [address] [place] Monocytes/100 WBC (Bld) 6.0 % Normal [facility] Comment on above: Order Comment: Speci men Type: CEREBROSPINAL FLUID SPECIMEN [facility] Address: [address] [place] [address] Performed By: #### L [id number], 88429-5 #### [facility] CLIA [id number] [address] [place] [address] [place] Neutrophils (Bld) [#/Vol] 4.69 10*3/uL Normal 1.45-7.50 [facility] Comment on above: Order Comment: Speci men Type: CEREBROSPINAL FLUID SPECIMEN [facility] Address: [address] [place] [address] Performed By: #### L [id number], 77047-3 #### [facility] CLIA [id number] [address] [place] [address] [place] Neutrophils/100 WBC (Bld) 65.8 % Normal [facility] Comment on above: Order Comment: Speci men Type: CEREBROSPINAL FLUID SPECIMEN [facility] Address: [address] [place] [address] Performed By: #### L [id number], 83810-0 #### [facility] CLIA [id number] [address] [place] [address] [place] Nucleated RBC (Bld) [#/Vol] 10*3/uL Normal <0.01 [facility] Comment on above: Order Comment: Speci men Type: CEREBROSPINAL FLUID SPECIMEN [facility] Address: [address] [place] [address] Performed By: #### L [id number], 72482-5 #### [facility] CLIA [id number] [address] [place] [address] [place] Nucleated RBC/100 WBC (Bld) [Ratio] 0.0 /100 WBC Normal [facility] Comment on above: Order Comment: Speci men Type: CEREBROSPINAL FLUID SPECIMEN [facility] Address: [address] [place] [address] Performed By: #### L [id number], 30674-4 #### [facility] CLIA [id number] [address] [place] [address] [place] Platelet mean volume (Bld) [Entitic vol] 9.5 fL Normal 9.0-12.7 [facility] Comment on above: Order Comment: Speci men Type: CEREBROSPINAL FLUID SPECIMEN [facility] Address: [address] [place] [address] Performed By: #### L [id number], 95652-8 #### [facility] CLIA [id number] [address] [place] [address] [place] Platelets (Bld) [#/Vol] 298 10*3/uL Normal 150-400 [facility] Comment on above: Order Comment: Speci men Type: CEREBROSPINAL FLUID SPECIMEN [facility] Address: [address] [place] [address] Performed By: #### L [id number], 82485-7 #### [facility] CLIA [id number] [address] [place] [address] [place] RBC (Bld) [#/Vol] 4.87 10*6/uL Normal 3.90-5.20 [facility] Comment on above: Order Comment: Speci men Type: CEREBROSPINAL FLUID SPECIMEN [facility] Address: [address] [place] [address] Performed By: #### L [id number], 32463-1 #### [facility] CLIA [id number] [address] [place] [address] [place] WBC (Bld) [#/Vol] 7.12 10*3/uL Normal 3.70-11.00 [facility] Comment on above: Order Comment: Speci men Type: CEREBROSPINAL FLUID SPECIMEN [facility] Address: [address] [place] [address] Performed By: #### L [id number], 87415-5 #### [facility] CLIA [id number] [address] [place] [address] [place] CNOVon 09-20-2023 CNOV Office Visit ([facility] ) -------- LADI BERNSTEIN ([id number]) 2000 F Date Time Provider Department 09/20/23 7:30 AM KEVIN HOLLOWAY During your visit today, we recorded the following information about you: Pulse Blood pressure Weight Height 94/minute 135/80 92.5 kg 1.626 m Kevin Holloway MD 09/20/2023 6:23 PM [facility] NEW PATIENT EVALUATION/CONSULTATION Referral source: Dario Garcia DO [address] [place] [address] Also followed by: No care bioinformatics team member to display PRINCIPAL NEUROLOGIC DIAGNOSIS: Myelopathy DISEASE SUMMARY Date of onset: August 2022 Date of diagnosis of MS: N/A Disease course at onset: Relapsing-Remitting Current disease course: Relapsing-Remitting Previous disease therapies: - IVMP x3 days (August 23-09/2023) Current disease therapy: None Most recent MRI brain: 09/07/2023 Most recent MRI cervical spine: 08/22/2023 Most recent MRI thoracic spine: 09/07/2023 CSF: 12/09/2022 (RBC 0, WBC 10 [lymphocytic], Glucose 64, Protein 15.3, IgG index 2.5, OCBs not done) JCV serology result and date: None Serum: - 2023: AQP4 Ab negative HISTORY OF ILLNESS: An opinion on this 23 year old right handed female was requested by the referring physician for a second opinion on abnormal MRI. The patient was accompanied by her fiance. Previous records (physician notes, laboratory reports, and radiology reports) and imaging studies were reviewed and summarized. My recommendations will be communicated back to the patient's physician(s) via facsimile. Follow-up is expected to be with me or the referring physician based on results of planned workup. Around August 2022 she started experiencing numbness in the feet (initially attributed to pinched nerve) which ascended and by the end of the week was numb below the waist. She was evaluated by her PCP by then symptoms affecting the torso and arms. She was also experiencing a feeling of squeezing in her abdomen and was seen in the ER who recommended neurology evaluation. She does not recall a trigger or feeling unwell prior to onset of symptoms. She was seen by Dr. Garcia who initially did MRI brain which was unremarkable. She then had MRI cervical spine in September 2022 which showed a cervical spine lesion and no thoracic cord lesions. She was given a Medrol dose pack and started on gabapentin and she became shortly after and stopped gabapentin. During that time she had symptoms of tremor in the hands, bouncing quality walk, stuttering speech, weakness in the four extremities, and urinary hesitation symptoms. At the time she was ambulating independently. During her symptoms mostly improved. She delivered in March 2023 () and was 100% back to normal self neurologically. Around mid July 2023 she started experiencing shooting pain in neck and BLE. About a month ago she also experienced pain symptoms in BUE. The symptoms have progressed to include weakness in BUE and BLE. She is also experiencing the hug like sensation and muscle spasms. She had IV steroids for 3 days about 3 weeks ago after the MRI results showing possibly expanded cord lesion which did not help significantly. During this period her pain and weakness has gotten worse. Over the past 1.5 weeks she feels similar ascending numbness symptoms to her index event. She still ambulates independently although her fiance helps her walk with holding her at most times. She is ex-smoker quit November 2022. She denies any significant alcohol or drug use. No current plans for although does not use contraception. Current Symptoms: Heat sensitivity Pain, taking gabapentin 300 mg TID which somewhat helps with the pain Muscle spasms, taking Robaxin 500 mg BID which helps somewhat Weakness Numbness Urinary hesitation mostly due to lack of sensation, denies incontinence Neuro-QoL Functions (higher=better functioning) Flowsheet Row Office Visit from 09/20/2023 in [facility] Upper Extremity Domain T Score 35 Lower Extremity Domain T Score 33 Cognitive Function Domain T Score 38 Positive Affect Well Being T Score -- Ability To Participate In Social Roles T Score 29 Satisfaction With Social Roles T Score 32 Neuro-QoL Symptoms (higher=worse symptoms) Flowsheet Row Office Visit from 09/20/2023 in [facility] Sleep Domain T Score 59 Fatigue Domain T Score 64 Anxiety Domain T Score 57 Depression Domain T Score 49 Stigma Domain T Score 60 Emotional Behavior Dyscontrol T Score -- PAST HISTORY: has a past medical history of ADHD (attention deficit hyperactivity disorder), Depression, and Endometriosis. has a past surgical history that includes section hx and removal gallbladder. has a current medication list which includes the following prescription(s): vyvanse, methocarbamol (more content not included)... Normal [facility] COPPER, SERUM/PLASMA FREEon 09-20-2023 COPPER, FREE, SERUM/PLASMA 460 mcg/L Normal [facility] Comment on above: Order Comment: Shannan balbuena Type: BLOOD SPECIMEN Ordering Facility: [facility] Address: [address] [place] [address] Result Comment: Seru m or Plasma Reporting Limit: 11 mcg/L [facility] derived data: Median, 1.2 mcg/L; range, Less than 1-180 mcg/L(N = 937). 10-90% of concentrations range from Less than 1-54 mcg/L. [email or web address] uses a direct measurement technique using ultracentrifugation for free copper determinations. Comparison of reported concentrations to techniques where calculated free copper concentrations are determined is not recommended. Analysis by Inductively Coupled Plasma/Mass Spectrometry (ICP/MS) Specimens for elemental testing should be collected in certified metal-free containers. Elevated results for elemental testing may be caused by environmental contamination at the time of specimen collection and should be interpreted accordingly. It is recommended that unexpected elevated results be verified by testing another specimen in a trace metal free container. This test was developed and its performance characteristics determined by [facility]. It has not been cleared or approved by the [place] Food and Drug Administration. Digital data review may have taken place remotely by qualified [facility] staff utilizing a secure VPN connection for some or all of the reported results. This is in accordance with and follows CLIA regulations. Testing performed at [facility] [address] [place] [address] CLIA [id number] Performed By: #### 1 3965-9 #### [facility] CLIA [id number] [address] [place] [address] [place] CRP SerPl-mCncon 09-20-2023 CRP [Mass/Vol] mg/L Normal <0.9 [facility] Comment on above: Order Comment: Speci men Type: BLOOD SPECIMEN Ordering Facility: [facility] Address: [address] [place] [address] Performed By: #### 5 8410-2 #### [facility] CLIA [id number] [address] [place] [address] [place] [address] [place] [address] [address] ABD/PEL W IVCONon 024 CT ABD/PEL W IVCON * * *Final Report* * * DATE OF EXAM: Sep 20 2023 8:48PM [facility] 0530 - CT ABD/PEL W IVCON / PROCEDURE REASON: Occult malignancy * * * * Physician Interpretation * * * * EXAMINATION: CT ABDOMEN AND PELVIS WITH IV CONTRAST CLINICAL HISTORY: Occult malignancy TECHNIQUE: CT of the abdomen and pelvis was performed using standard technique, scanning from just above the dome of the diaphragm to the symphysis pubis. MQ: CTAP_3 Contrast: IV: 100 ml of Omnipaque 350 CT Radiation dose: Integrated Dose-length product (DLP) for this visit = 1100 mGy*cm. CT Dose Reduction Employed: Automated exposure control (AEC) COMPARISON: None. RESULT: Liver: No mass. Biliary: No bile duct dilation. Spleen: No mass. No splenomegaly. Pancreas: No mass or duct dilation. Adrenals: No mass. Kidneys: No mass, calculus or hydronephrosis. Probable parapelvic cysts in the upper pole of the left kidney. GI tract: No dilation or wall thickening. Lymph nodes: No abdominal or pelvic lymphadenopathy. Shotty mesenteric nodes. Mesentery/Peritoneum: No ascites or mass. Retroperitoneum: No mass. Vasculature: - Abdominal aorta and iliac arteries: No aneurysm. - Celiac and SMA: Patent without stenosis. - Portal venous system (SMV, splenic vein, portal vein and branches): Patent. - Hepatic veins: Patent. Pelvis: Trace ascites, likely physiologic. No mass. Bones/Soft Tissues: No suspicious lesion. Lower thorax: A chest CT performed will be reported separately. Localizer images: Unremarkable. IMPRESSION: No evidence of malignancy in the abdomen/pelvis. Personnel Consultant: STEPHEN Transcribe Date/Time: Sep 20 2023 9:10P Dictated by : REED ALFREDO MD This examination was interpreted and the report reviewed and electronically signed by: REED ALFREDO MD on Sep 20 2023 9:17PM EST [id number] Normal [facility] CT CHEST W IVCONon CT CHEST W IVCON * * *Final Report* * * DATE OF EXAM: Sep 20 2023 8:48PM [facility] 0539 - CT CHEST W IVCON / PROCEDURE REASON: Occult malignancy * * * * Physician Interpretation * * * * EXAMINATION: CHEST CT WITH CONTRAST CLINICAL HISTORY: Clinically suspected occult malignancy. Technique: Spiral CT acquisition of the chest from the thoracic inlet to the upper abdomen following IV contrast. MQ: CTCW_6 Contrast: 100 mL Omnipaque [address] Radiation dose: Integrated Dose-length product (DLP) for this visit = 1100 mGy*cm CT Dose Reduction Employed: Automated exposure control (AEC) Comparison: None. RESULT: Limitations: Mild breathing motion artifacts. Lines, tubes, and devices: None. Lung parenchyma and airways: Mild degree of infiltrate airway thickening is suspected in the hilar regions. Few tiny intrafissural lymph nodes are seen on the right. No consolidation or mass lesion. Pleural space: No pleural effusion. No pleural thickening. Lower neck, lymph nodes, and mediastinum: Central airways are patent. Thyroid is unremarkable. Small amount of residual thymic tissue is compatible with age. Small nonenlarged mediastinal and hilar nodes are likely reactive. There is no mediastinal or hilar adenopathy. Esophagus is grossly unremarkable. Heart, pericardium, and thoracic vessels: Normal sized heart. Trace pericardial fluid. Thoracic aorta, main pulmonary arteries and SVC are within normal in diameter. Bones and soft tissues: Small nonenlarged axillary nodes are seen, likely reactive. No lytic or sclerotic osseous lesion. Upper abdomen: Reported separately. Localizer images: No additional information. IMPRESSION: Small nonenlarged mediastinal, hilar and axillary nodes, likely reactive. Clinical correlation is recommended. No suspicious nodule or mass lesion. Personnel Consultant: PSCB Transcribe Date/Time: Sep 20 2023 9:45P Dictated by : OUMOU GONZALES MD This examination was interpreted and the report reviewed and electronically signed by: OUMOU GONZALES MD on Sep 20 2023 9:59PM EST [id number] Normal [facility] Ceruloplasmin SerPl-mCncon 0 09-20-2023 Ceruloplasmin [Mass/Vol] 31 mg/dL Normal 16-45 [facility] Comment on above: Order Comment: Speci men Type: BLOOD SPECIMEN Ordering Facility: [facility] Address: [address] [place] [address] Performed By: #### 5 8410-2 #### [facility] CLIA [id number] [address] [place] [address] [place] Comprehensive metabolic 2000 panelon 09-20-2023 Albumin [Mass/Vol] 4.9 g/dL Normal 3.9-4.9 [facility] Comment on above: Order Comment: Speci men Type: BLOOD SPECIMEN Ordering Facility: [facility] Address: [address] [place] [address] Performed By: #### 1 3965-9 #### [facility] CLIA [id number] [address] [place] [address] [place] ALP [Catalytic activity/Vol] 66 U/L Normal 34-123 [facility] Comment on above: Order Comment: Speci men Type: BLOOD SPECIMEN Ordering Facility: [facility] Address: [address] [place] [address] Performed By: #### 1 3965-9 #### [facility] CLIA [id number] [address] [place] [address] [place] ALT [Catalytic activity/Vol] 7 U/L Normal 7-38 [facility] Comment on above: Order Comment: Speci men Type: BLOOD SPECIMEN Ordering Facility: [facility] Address: [address] [place] [address] Performed By: #### 1 3965-9 #### [facility] CLIA [id number] [address] [place] [address] [place] Anion gap [Moles/Vol] 11 mmol/L Normal 9-18 [facility] Comment on above: Order Comment: Speci men Type: BLOOD SPECIMEN Ordering Facility: [facility] Address: [address] [id number] Performed By: #### 1 3965-9 #### [facility] CLIA [id number] [address] [place] [address] [place] AST [Catalytic activity/Vol] 12 U/L Low 13-35 [facility] Comment on above: Order Comment: Speci men Type: BLOOD SPECIMEN Ordering Facility: [facility] Address: [address] [place], [place] [id number] Performed By: #### 1 3965-9 #### [facility] CLIA [id number] [address] [place] [address] [place] Bilirubin [Mass/Vol] 0.2 mg/dL Normal 0.2-1.3 [facility] Comment on above: Order Comment: Speci men Type: BLOOD SPECIMEN Ordering Facility: [facility] Address: [address] [place] [address] Performed By: #### 1 3965-9 #### [facility] CLIA [id number] [address] [place] [address] [place] Calcium [Mass/Vol] 9.5 mg/dL Normal 8.5-10.2 [facility] Comment on above: Order Comment: Speci men Type: BLOOD SPECIMEN Ordering Facility: [facility] Address: [address] [place], [place] [id number] Performed By: #### 1 3965-9 #### [facility] CLIA [id number] [address] [place], [place] [id number] [place] Chloride [Moles/Vol] 103 mmol/L Normal 97-105 [facility] Comment on above: Order Comment: Speci men Type: BLOOD SPECIMEN Ordering Facility: [facility] Address: [address] [place], [place] [address] Performed By: #### 1 3965-9 #### [facility] CLIA [id number] [address] [place], [place] [id number] [place] CO2 [Moles/Vol] 25 mmol/L Normal 22-30 [facility] Comment on above: Order Comment: Speci men Type: BLOOD SPECIMEN Ordering Facility: [facility] Address: [address] [place] [address] Performed By: #### 1 3965-9 #### [facility] CLIA [id number] [address] [place] [address] [place] Creatinine [Mass/Vol] 0.64 mg/dL Normal 0.58-0.96 [facility] Comment on above: Order Comment: Speci men Type: BLOOD SPECIMEN Ordering Facility: [facility] Address: [address] [place] [address] Performed By: #### 1 3965-9 #### [facility] CLIA [id number] [address] [place] [address] [place] Creatinine and Glomerular filtration rate.predicted panel (S/P/Bld) 126 mL/min/1.73m??? Normal >=60 [facility] Comment on above: Order Comment: Speci men Type: BLOOD SPECIMEN Ordering Facility: [facility] Address: [address] [place] [address] Result Comment: Gisselle mated Glomerular Filtration Rate (eGFR) is calculated using the 2020 CKD-EPI creatinine equation. This equation utilizes serum creatinine, sex, and age as parameters. The creatinine assay has traceable calibration to isotope dilution-mass spectrometry. Refer to KDIGO guidelines for clinical interpretation. In patients with unstable renal function, e.g. those with acute kidney injury, the eGFR may not accurately reflect actual GFR. Performed By: #### 1 3965-9 #### [facility] CLIA [id number] [address] [place] [address] [place] Glucose [Mass/Vol] 102 mg/dL High 74-99 [facility] Comment on above: Order Comment: Speci men Type: BLOOD SPECIMEN Ordering Facility: [facility] Address: [address] [place] [address] Result Comment: The [place] Diabetes [employer] (ADA) provides guidance for cutoff values for fasting glucose and random glucose. The ADA defines fasting as no caloric intake for at least 8 hours. Fasting plasma glucose results between 100 to 125 mg/dL indicate increased risk for diabetes (prediabetes). Fasting plasma glucose results greater than or equal to 126 mg/dL meet the criteria for diagnosis of diabetes. In the absence of unequivocal hyperglycemia, results should be confirmed by repeat testing. In a patient with classic symptoms of hyperglycemia or hyperglycemic crisis, random plasma glucose results greater than or equal to 200 mg/dL meet the criteria for diagnosis of diabetes. Reference: Standards of Medical Care in Diabetes 2016, [place] [employer]. Diabetes Care. 2016.39(Suppl 1). Performed By: #### 1 3965-9 #### [facility] CLIA [id number] [address] [place] [address] [place] Potassium [Moles/Vol] 4.2 mmol/L Normal 3.7-5.1 [facility] Comment on above: Order Comment: Speci men Type: BLOOD SPECIMEN Ordering Facility: [facility] Address: [address] [place] [address] Performed By: #### 1 3965-9 #### [facility] CLIA [id number] [address] [place] [address] [place] Protein [Mass/Vol] 7.8 g/dL Normal 6.3-8.0 [facility] Comment on above: Order Comment: Speci men Type: BLOOD SPECIMEN Ordering Facility: [facility] Address: [address] [place] [address] Performed By: #### 1 3965-9 #### [facility] CLIA [id number] [address] [place] [address] [place] Sodium [Moles/Vol] 139 mmol/L Normal 136-144 [facility] Comment on above: Order Comment: Speci men Type: BLOOD SPECIMEN Ordering Facility: [facility] Address: [address] [place] [address] Performed By: #### 1 3965-9 #### [facility] CLIA [id number] [address] [place] [address] [place] Urea nitrogen [Mass/Vol] 13 mg/dL Normal 7-21 [facility] Comment on above: Order Comment: Speci men Type: BLOOD SPECIMEN Ordering Facility: [facility] Address: [address] [place] [address] Performed By: #### 1 3965-9 #### [facility] IA [id number] [address] [place] [address] [place] ESR Westergren method (Bld) [Velocity]on 09-20-2023 ESR (Bld) [Velocity] 15 mm/h Normal 0-20 [facility] Comment on above: Order Comment: Speci men Type: BLOOD SPECIMEN Ordering Facility: [facility] Address: [address] [place] [address] Performed By: #### 1 3965-9 #### [facility] [place] [id number] [address] [place] [address] [place] HISTORY PHYSICALon HISTORY PHYSICAL HNO ID: [id number] Author: KLAUS STEVENSON MD Service: Neurology General Author Type: Physician Type: H&P Filed: 09/21/2023 08:16 Note Text: HANDP NEUROLOGY SERVICE DATE: 09/20/2023 SERVICE TIME: 1400 REASON FOR ADMISSION: Recurrent generalized weakness, pain, and sensory change Subjective HISTORY OF PRESENT ILLNESS: Ms. Ladi Bernstein is a 23yo female with a history of ADHD and depression who presents from [facility] for recurrent recurrent generalized weakness, pain, and ascending sensory change. Information is obtained by chart review and supplemented by patient/family as able. Ms. Bernstein's symptoms started last August (08/2022, -1yr). Her first symptom was decreased sensation in there feet that ascended over the week to include everything below her waist. By the time she presented to her PCP/ED, her symptoms had progressed to her torso (a/w squeezing sensation) and ascended up her arms (starting at fingertips). She also experienced a bandlike pressure sensation around her entire abdomen (not chest) and diffuse sharp pains/spasms (e.g. circumferentially radiating down arms/legs). It stopped after it reached the middle of her nec to her neck and greater auricular nerve distrubution of head bilaterally (C2-C3). Weakness was first evident in the legs and hands. She denies ever having increased WOB/dyspnea or dysphagia. No pseudobulbar affect. There were no clear antecedent illness or exposures. MRI-cervical spine (09/2022) demonstrated cervical spine lesion (report/images not available) but no brain or thoracic lesions. CSF (12/09/2022): RBC 0, WBC 10 [lymphocytic], Glucose 64, Protein 15.3, IgG index 2.5, OCBs not done Empiric treatment included Medrol dose pack and GBP (the latter stopped d/t ). Steroids provided no appreciable benefit. Her symptoms progressively improved over the next 8-12 weeks (by about month 3 of ). She was completely back to her unaffected pre-August baseline by the time of delivery (, 03/2023). Her symptoms reoccurred in early July (07/2023) with downward radiating lateral leg pain and cramping (worsened at rest). The continued to progressive over the past three weeks until when she was preparing dinner one evening and experienced severe right, then left hand cramping pain. Pain was followed by the same distal ascending numbness (2 weeks ago, currently at chest and proximal elbows) and then generalized weakness (LUE sensation. She received three days IVMP, without appreciable benefit - instead her pain/weakness worsened. MRI brain w/wo (09/07/2023): No clear intracranial WM lesions. 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 No thoracic cord lesions. No GdE. Per OSH report, in comparison to 10/15/2022 lesions similar in appearance but slightly larger and further expansion. She endorses mental fog, anomia/WFD, shuffling gait (no falls), and difficulty completely emptying bladder (no UTI sx). She otherwise denies no constipation, vision change, speech change / scanning speech, diplopia, dysphagia, aphasia, confusional episodes, seizure-like episodes, (pre)syncope/falls, vertigo, tinnitus, hearing change, or any other focal deficit. Denies any pertinent family history of neurologic/autoimmune disorders, substance use (EtOH socially, no recreational, former tobacco), no known toxic exposures. No recent diet change, recent weight loss (70lbs unintentionally 2 years ago but stable recently), change in sleep habits/quality. PAST MEDICAL HISTORY Diagnosis Date ADHD (attention deficit hyperactivity disorder) Depression Endometriosis PAST SURGICAL HISTORY Procedure Laterality Date SECTION HX REMOVAL GALLBLADDER FAMILY HISTORY Problem Relation Age of Onset Diabetes Father Glaucoma Father Multiple Sclerosis No Family History Social History Occupational History Not on file Tobacco Use Smoking status: Former Packs/day: 0.50 Years: 2.00 Additional pack years: 0.00 Total pack years: 1.00 Types: Cigarettes Quit date: 12/04/2021 Years since quittin.7 Smokeless tobacco: Never Substance and Sexual Activity Alcohol use: Yes Comment: occassionally Drug use: Yes Types: Marijuana Comment: everyday Sexual activity: Yes Partners: Male control/protection: Condom Current Facility-Administered Medications Medication Dose Route Frequency [START ON 09/21/2023] lisdexamfetamine 30 mg capsule (VYVANSE) 30 mg ORAL DAILY [START ON 09/22/2023] enoxaparin 40 mg injection (LOVENOX) 40 mg SUBCUTANEOUS q 24 HR NaCl 0.9% iv flush bag 20 mL INTRAVENOUS PRN acetaminophen 650 mg tab(s) (TYLENOL) 650 mg ORAL/FEEDING TUBE q 6 H PRN Or acetaminophen 650 mg suppository (TYLENOL) 650 mg RECTAL q 6 H PRN iv contrast (radiology procedure) INTRAVENOUS DIRECTED PRN iv contrast (radiology procedure) INTRAVENOU (more content not included)... Normal [facility] HIV 1+2 Ab IA Qlon 4 HIV 1 and 2 Ab IA.rapid Nom (S/P/Bld) Normal [facility] Comment on above: Order Comment: Speci men Type: CEREBROSPINAL FLUID SPECIMEN Ordering Facility: [facility] Address: [address] [place] [address] Result Comment: Test not indicated. Performed By: #### L [id number], 77260-1 #### [facility] CLIA [id number] [address] [place] [address] [place] HIV 1+2 Ab+HIV1 p24 Ag IA Ql Non-Reactive Normal Nonreactive [facility] Comment on above: Order Comment: Speci men Type: CEREBROSPINAL FLUID SPECIMEN Ordering Facility: [facility] Address: [address] [place] [address] Performed By: #### L [id number], 51153-9 #### [facility] CLIA [id number] [address] [place] [address] OF SUE HIV immunoassay testing algorithm interpretation (S/P/Bld) [Interp] Normal [facility] Comment on above: Order Comment: Speci men Type: CEREBROSPINAL FLUID SPECIMEN Ordering Facility: [facility] Address: [address] [place] [address] Result Comment: No e vidence of HIV-1 or HIV-2 infection. Should recent infection be suspected, repeat testing may be considered 2-3 weeks after this draw. [place] Rev. Code 3701.243(E): This information has been disclosed to you from confidential records protected from disclosure by state law. ???You shall make no further disclosure of this information without the specific, written, and informed release of the individual to whom it pertains or as otherwise permitted by state law. A general authorization for the release of medical or other information is not sufficient for the purpose of the release of HIV test results or diagnoses. Performed By: #### L [id number], 05688-2 #### [facility] CLIA [id number] [address] [place] [address] [place] HTLV AB SCREENon 09-20-2023 HTLV I/II AB SCREEN Negative Normal Negative [facility] Comment on above: Order Comment: Speci men Type: BLOOD SPECIMENOrdering Facility: [facility] Address: [address] [place] [address] Result Comment: Base d on the non-reactive anti-HTLV YULI screen, the HTLV Western Blot is not indicated and therefore not performed. INTERPRETIVE INFORMATION: HTLV I/II Antibodies w/Reflex to Confirm This assay should not be used for blood donor screening, associated re-entry protocols, or for screening Human Cell, Tissues and Cellular and Tissue-Based Products (HCT/P). Performed By: [facility] [address] [place] [address] Information Receptionist: Cole Craft MD, PhD [facility] Number: [id number] Performed By: #### H [facility]OUNDARY [facility] ####[facility] [id number] [place] [address] Hcys SerPl-sCncon 09-20-2023 Homocysteine [Moles/Vol] 8.1 umol/L Normal <15.1 [facility] Comment on above: Order Comment: Speci men Type: BLOOD SPECIMEN [facility]ing Facility[facility] Address: [address] [place] [address] Performed By: #### 1 3965-9 #### [facility] CLIA [id number] [address] [place] [address] [place] Methylmalonate SerPl-sCncon 09-20-2023 Methylmalonate [Moles/Vol] 0.09 umol/L Normal <=0.40 [facility] Comment on above: Order Comment: Speci esha Type: BLOOD SPECIMEN Ordering Facility: [facility] Address: [address] [place] [address] Result Comment: This test was developed and its performance characteristics determined by [facility] [place] (-[facility]). It has not been cleared or approved by the FDA. [facility] is regulated under CLIA as qualified to perform high-complexity testing. This test is used for clinical purposes. It should not be regarded as investigational or for research. Performed By: #### 1 3965-9 #### [facility] CLIA [id number] [address] [place] [address] [place] NURSING PROGon 09-20-2023 NURSING PROG HNO ID: [id number] Author: GLENDA ALONZO RN Service: ? Author Type: Registered Nurse Type: Nursing Progress Note Filed: 09/20/2023 13:36 Note Text: Admission/Transfer Note PATIENT NAME: Ladi Bernstein Patient Location: [place] [address]/60 Room: [place] [address] Patient admitted from home via wheelchair in stable condition. Actions taken: Patient oriented to room, call light function, prescribed activities, Patient rights, and Quiet at night. This note was completed by: Glenda Chung [facility] PT panel Coag (PPP)on 2023 INR Coag (PPP) [Relative time] 1.1 {INR} Normal 0.9-1.3 [facility] Comment on above: Order Comment: Shannan balbuena Type: BLOOD SPECIMEN [facility] Facility: [facility] Address: [address] [place] [address] Result Comment: Ken min K Antagonist (VKA) Therapeutic Range: INR 2 to 3 (Target INR of 2.5) Note: For patients treated with VKA drugs, such as warfarin, the [place] [employer] 2012 Guideline recommends a therapeutic INR range of 2 to 3 (target INR of 2.5). This recommendation includes high-risk patients with antiphospholipid syndrome with previous arterial or venous thromboembolism, current-generation mechanical or bioprosthetic aortic heart valve replacement. Note: Patients with mechanical aortic valve replacement and additional risk factors for thromboembolic events (atrial fibrillation, previous thromboembolism, LV dysfunction, hypercoagulable conditions) or an older generation mechanical AVR (i.e., ball in-Cage) or any mechanical MVR should have a INR therapeutic range of 2.5 to 3.5 (target INR of 3). Jayesh GH, et al. Chest 2012, 141:7S-47S Hilda RA et al. [facility] 2017, 70: 252-289 Performed By: #### 3 4528-0 #### [facility] CLIA [id number] [address] [place], [place] [address] [address] [place] PT Coag (PPP) [Time] 11.2 s Normal 9.7-13.0 [facility] Comment on above: Order Comment: Shannan balbuena Type: BLOOD SPECIMEN Ordering Facility: [facility] Address: [address] [place] [address] Performed By: #### 3 4528-0 #### [facility] CLIA [id number] [address] [place] [address] [place] Reagin and Treponema pallidu m IgG and IgM [Interp]on 09-20-2023 T. pallidum IgG+IgM IA Ql (S) Non-Reactive Normal Nonreactive [facility] Comment on above: Order Comment: Speci men Type: CEREBROSPINAL FLUID SPECIMEN Ordering Facility: [facility] Address: [address] [place] [address] Performed By: #### L [id number], 76630-7 #### [facility] CLIA [id number] [address] [place] [address] [place] S[place] Reagin+T pallidum IgG+IgM Se rPl-Impon 09-20-2023 Reagin and Treponema pallidum IgG and IgM [Interp] Cannot exclude recent Treponemal infection if specimen collected within 7-10 days after appearance of suspect lesions or 2-3 weeks after an exposure. Clinical correlation is required. Normal [facility] Comment on above: Order Comment: Speci men Type: CEREBROSPINAL FLUID SPECIMEN Ordering Facility: [facility] Address: [address] [place] [address] Performed By: #### L [id number], 41526-4 #### [facility] CLIA [id number] [address] [place] [address] [place] VITAMIN B1 (THIAMINE), WHOLE BLOODon 09-20-2023 Thiamine (Bld) [Moles/Vol] 142.0 nmol/L Normal 84.3-213.3 [facility] Comment on above: Order Comment: Speci men Type: BLOOD SPECIMEN [facility]ing Facility: [facility] Address: [address] [place] [address] Result Comment: This assay measures the concentration of thiamine diphosphate (TDP), the primary active form of vitamin B1. Approximately 90 percent of vitamin B1 present in whole blood is TDP. Thiamine and thiamine monophosphate, which comprise the remaining 10 percent, are not measured. This test was developed and its performance characteristics determined by [facility] [place] ([facility] It has not been cleared or approved by the FDA. [facility] is regulated under CLIA as qualified to perform high-complexity testing. This test is used for clinical purposes. It should not be regarded as investigational or for research. Performed By: #### 2 4362-6, 44034-2 #### [facility] CLIA [id number] [address] [place] [address] [place] VITAMIN B3/NIACIN, PLASMAon 09-20-2023 NICOTINAMIDE 70.6 ng/mL Normal 5.0-48.0 [facility] Comment on above: Order Comment: Shannan balbuena Type: BLOOD SPECIMEN [facility] Facility: [facility] Address: [address] [place] [address] Result Comment: Like ly non-fasting specimen or patient on nicotinamide supplement at pharmacological doses. Performed By: #### 3 4528-0 #### [facility] CLIA [id number] [address] [place] [address] STATES OF [facility] NICOTINIC ACID <5.0 Normal Cutoff:<5.0 [facility] Comment on above: Order Comment: Shannan balbuena Type: BLOOD SPECIMEN [facility] Facility: [facility] Address: [address] [place] [address] Performed By: #### 3 4528-0 #### [facility] CLIA [id number] [address] [place] [address] OF SUE NICOTINURIC ACID <5.0 Normal Cutoff:<5.0 [facility] Comment on above: Order Comment: Shannan balbuena Type: BLOOD SPECIMEN [facility] Facility: [facility] Address: [address] [place] [address] Result Comment: ADDITIONAL INFORMATION Testing performed by Liquid Chromatography-Tandem Mass Spectrometry (LC-MS/MS) This test was developed and its performance characteristics determined by [facility] in a manner consistent with CLIA requirements. This test has not been cleared or approved by the U.S. Food and Drug Administration. Test Performed by: [facility] [address] [id number] Breaker Up Machine Operator: Ferny Ramires M.D. Ph.D.; CLIA# [id number] Performed By: #### 3 4528-0 #### [facility] CLIA [id number] [address] [place] [address] [place] VITAMIN B6/PYRIDOXINon 09-19 VITAMIN B6 38.2 nmol/L Normal 20.0-125.0 [facility] Comment on above: Order Comment: Shannan balbuena Type: BLOOD SPECIMEN [facility] Facility: [facility] Address: [address] [place] [address] Result Comment: INTE RPRETIVE INFORMATION: Vitamin B6 (Pyridoxal 5-Phosphate) Pyridoxal 5'-phosphate measured in a specimen collected following an 8-hour or overnight fast accurately indicates vitamin B6 nutritional status. Non-fasting specimen concentration reflects recent vitamin intake. This test was developed and its performance characteristics determined by [facility]. It has not been cleared or approved by the US Food and Drug Administration. This test was performed in a CLIA certified laboratory and is intended for clinical purposes. Performed By: [facility] [address] [place] [address] Information Receptionist: Cole Craft MD, PhD CLIA Number: [id number] Performed By: #### 5 8410-2 #### [facility] CLIA [id number] [address] [place] [address] [place] VITAMIN B7 (BIOTIN)on 2023 VITAMIN B7 (BIOTIN) 1699.4 pg/mL Normal 221.0-3004.0 [facility] Comment on above: Order Comment: Shannan balbuena Type: BLOOD SPECIMENOrdering Facility: [facility] Address: [address] [place] [address] Result Comment: ADDITIONAL INFORMATION The performance characteristics of the listed assay was validated by [facility] [facility] [employer]. The US FDA has not approved or cleared this test. The results of this assay can be used for clinical diagnosis without FDA approval. [facility] is a CLIA certified, CAP accredited laboratory for performing high complexity assays such as this one. Test Performed by: [facility] [address] [place] [address] Performed By: #### V ITB7 ####[facility]IA [id number] [place] [address] Vit B12 SerPl-mCncon 024 Cobalamin (Vitamin B12) [Mass/Vol] 495 pg/mL Normal 232-1245 [facility] Comment on above: Order Comment: Shannan balbuena Type: BLOOD SPECIMEN [facility] Address: [address] [place] [address] Performed By: #### 5 8410-2 #### [facility] CLIA [id number] [address] [place] [address] [place] Zinc SerPl-mCncon 09-20-2023 Zinc [Mass/Vol] 65 ug/dL Normal 60-120 [facility] Comment on above: Order Comment: Shannan balbuena Type: BLOOD SPECIMEN [facility] Address: [address] [place] [address] Result Comment: This test was developed and its performance characteristics determined by [facility] [place] ([facility]). It has not been cleared or approved by the FDA. [facility] is regulated under CLIA as qualified to perform high-complexity testing. This test is used for clinical purposes. It should not be regarded as investigational or for research. Performed By: #### 3 4528-0 #### [facility] CLIA [id number] [address] [place] [address] [place] CNPNon 09-16-2023 CNPN Telephone ([facility]) -------- LADI BERNSTEIN ([id number]) 2000 F Date Time Provider Department 09/16/23 ALDO PURVIS During your visit today, we recorded the following information about you: Aldo Purvis MD 09/16/2023 1:17 PM Signed Attempted to call [facility] library several times to obtain OSH images for upcoming appointment but unable to reach. Future Appointments Date Time Provider Department Center 09/20/2023 7:30 AM Kevin Holloway MD [facility] Aldo Purvis MD Neuroimmunology Fellow Aldo Purvis MD 09/16/2023 1:48 PM Signed Was able to connect and push over neuroimaging from this year. Was advised prior neuroimaging from 2022 was done at [facility]. Unable to connect electronically to confirm. Aldo Purvis MD Neuroimmunology Fellow Allergies As of Date: 09/16/2023 (No Known Allergies) Date Reviewed: 05/27/2017 Reviewed by: Desi Yoon (Rn)(Hist), RN - Fully Assessed Prescriptions as of 09/16/2023 - ibuprofen (MOTRIN) 800 mg tablet Take 1 tablet by mouth every 6 hours as needed for Pain or Fever. - hydrOXYzine pamoate (VISTARIL) 50 mg capsule Take 50 mg by mouth twice daily. - glipiZIDE-metFORMIN (METAGLIP) 2.5-250 mg per tablet Take 1 tablet by mouth twice daily before meals. - traZODone (DESYREL) 100 mg tablet Take 100 mg by mouth daily at bedtime. - risperiDONE (RISPERDAL) 0.25 mg tablet Take 0.25 mg by mouth daily at bedtime. Problem List As Of Date 09/16/2023 Noted Resolved Type 2 diabetes mellitus without retinopathy (H*09/11/2015 Vitreous floaters of both eyes [H43.393] 09/11/2015 Encounter Status:Closed by ALDO PURVIS on 09/16/23 Normal [facility] Neuromyelitis Optica, IgGon 04-25-2024 Neuromyelitis Optica, IgG <1.5 Normal 0.0-3.0 The Count Includes [facility] Comment on above: Result Comment: Nega tive: 0.0 - 3.0 Positive: >3.0 Performed at: [address] [id number] Breaker Up Machine Operator: Bon Solis MD, Phone: [phone] PERFORMED BY: [facility] [address] [place] [address] PATHOLOGIST GARNISHMENT SPECIALIST ANU RICK M.D. Performed By: #### C SF GLU, CSFCCDIFF, CSF TP #### [address] Coding Summaryon 09-13-2023 Coding Summary HTMLBase 64 UjdzjauvYEn8jPo+PGhlYWQ+ NZ3UJBDtV88yjCKpsQ0iQ3QA TElOSywgQVBQTElOSyIgbmFt AT4zbDUoBMAh IC8+TL4qSHTqDinabTCsj1M6 dJU4U53uij5yYUbowKB9FPGf LbSzhabsj8cwwSw2LMiqQpxp OyBt QVQyuM08UPX8kT34Rq54vJXg bNLyo2forEy8YsBpHIZjYWT9 qVvgEFngs8WtIXNrT33enXBk c2U6 FJQpcGltqNHsPuQkhOF7dN3l CTbdoxbaw8vbpqvlXfy4yv33 dAMjv6S7mYT7U9TaxoF7UAPz bGQg TjzjuFXWyT2hgdild4ufldzw AuCmYIBtQBd3RRl7NGXgaNjz DnFzGW75HWO5JWJnkqOaX1Me LWFs gQokHlK1o1W4Mj5LE3MYZbvx D1AAPVFDRHassMA+MJ20hk64 V8FmGdmwYtx8KTJeLID6fNR1 aD0n XEWeIToud0S0zXB6O0HfbgRn vw7ee0rxYCDkQOyuM59tjOEp y7Z6MIHdgUD5GHAdaOthEmWm aG93 Oyc+CFRdlMtod0DhSlsye0km x9vdmAa0KlarLEMasbFlsElm HSS9i6RbVr1bMOIbwRE4pAV3 aD0i BuPxUmU3CZawG122VkZbfBLs XbfwK82kX1VdrOK+PHRyPjx0 YYQznLpqHA1eE3JkDCEkfzwp bGVm eUcaMK4xNYXzjqcnPPLcmY5v XXBuD1n2CfMtTjB3LJcmN0Sy ZPZwlsniJh41cL0nRrKtFvO5 MGlu N5AoosG5VKJvmGXiGJvwMZQ7 X97ua1S5VXDsWTClWVK6gFL9 wV6cfUyewxtkjCAcrPqcuiWy dGlj TElvZBkjL824ERCsqIwqIpGu ZGluZyBEYXRlOiAgMDQvMjMv MjAyNDwvdGQ+LHHxKGD5tMzu PSAn lVWfBVjcNs2idHkyrCbsQK7o MSLkwqjaWNFovF3fDIJzzDVq eBrnUL2jRJKtzkcuy719RcWn MHB0 XBPphCOiF6DttL5rTbDhZWTt PCIzW4OezUOdSWddK281HBid DkD7QREvzzZkH2XlQEXkkOpa OiB0 a5S6Ae8Mz0HmoexlX9StkJIi FuHhMgecBJm4R0IfGkxeqKE+ LU50SGAyJO64BZm7NZN2hAih PSdi SJBiI5KygV0uAhUlLOEnBWLh Oyc+PHRhYmxlIHdpZHRoPScx MYCtQeLnkMlmUP0lSo6dNGHg LWNv vLbueUDkFiDlp1dyCDMyITth QO8xrMydF7PsqRG0GGWwa9a7 Cr39M35vB1XbaYN+PGNvbCB3 aWR0 kR0hQcIbTqY6KLpnF316VoGg mZAyKertb7srm2fjjQi7MiU5 JSRmfxWovKteUII0t6PrDh30 Y29s IHdpZHRoPSIxNSUiIHZhbGln fv7rjI2jPg5+SGIosDJ6zRD5 cG8pPdGlBjL4HLcdS268VrQx cCIv Kubne5aao0eccRl1DrZfXBLp rjGymWmpYNA7i2PtFb41F1Pn tHrgl5WkUlz0yv60dZYxa9C2 bGU9 K6YuVFWatwscoDAssVjyXT8v FSMhhndkGISlrS2jNIUmF8u0 QnTgNvA3ENzjD4IwuaE7BXAa bGQg JCSwiGIDpV1rsuvou6msmndw YqQvADTiOYc2SSd6JYYtqWrv WdXcQPP8ZrQ9FDS4vPMtuA3e bGln lkbjcH7fUpk+YTK0yBLvcXQJ GQ2sXmbgpLE+TOZfKWX0qIbu YEjeFTKoeQ3oRSOtT8q0NiBy LjA1 KWvwQ7UyokA4EEQgzAQaADQy hMLExS0nglzge5wihykpTjDm YOPlWSi6COu5MWTzxQveLqUh ZWZ0 AqI8LDV0fLOufU2pqCcpncgc mT7kXiz+RdbcgDeoDXD3HWg2 G9HrOns3HXQkfCisOQ1quUKa ZGlu Mu0caZjfxAogUF3kTQCvrvjf b776RwLfh9jlTVGkzAWtAHcf DSX5K11gv8V8BVMpRNJeBPZ8 dGV4 iO1mrBtkqxdeeEKlnKhmntXz jZvuOUtmESvjM013YMVwsPdg EkGcOUq0P1AjHev4DQVwjBek ZT0n wJJsGBlsUr9auEfndIfmRB4t KLPyzapiq348AiTed5btJYBs zOFoHVutPOM0H79qx7F8IAXj MDAw ZGX6eXF3zS7teLjcphqwxSYv pWngxlTfxOauYMoxFTisY598 MOUxxXkhKpMjhDc4T8OgOaz0 ZCBz yVpiLU6uiMXnAVntOb2vpNhq sQgmYR0jGVYvcrmif357HvSi d1skYJDgnABwTMwgHQQ7N17u b3I6 SDZeQWAlIDP1jBL5iA2pdDpq bjogbGVmdDsgdmVydGljYWwt CJemI570BOLdwGfrPwCzzUwd bnQg HSmkOWu7E5IkRtboeWV+PC90 IWWnEN72vLLmrIPfq2ouwGk1 GzXpYONrPIQ9vSrlBOutz9Xq ZXIt B94hbNXwb8R6EJFbpDxpaMEb QxJqwPC3oI2cJQkcinwyv3ou raygEajsl6sxpq66wP29P75j IHdp BUOyUQFqFDNzFUXqwXunyy6k gZ8tFh9+JBDvgXM3nHI5wR2y NFTuZoU9NFqtB941JpPlvPSq Pjxj a8uvv5dfsJf9SxO7NORgctNw sPwlFWX4b2RwJu19X37zLIwc WRUhXBFmFXRfFOHveSywih6b dG9w Ii8+QEOsiXF8vWJ0gZ8dTrKh WlK7GXhzG812QoJhlCKpPslo A05cZ2CsaFW+YJTqPwu8CRMz dHls OX8rrZDdSZtoRa6cETV4OmYc QhTfONpuY3JvLAPwkrqdnhmj cAJ7BFHrRUXyzX53Vo8ulBzu MTBw sUNJnG2vvtlon9wqfibaQiGt WIBkJEt2AAe8HBHenXgrBnVp FPV8FoZ1PUB6kXOhfL1pzWtm bjog lI8eN3EvJAXabbitXr68nN6c BuFzInT3MQznXoy+R9dQYkVP LAxbGC9BAVFGRAGtBfpSF6uX PC90 TI09cZGzi2A3sXJ5K2IeDQRu jqgatgztnKA0RHRpSKQstQ82 bRQgGTqnGs9gs9Z7u239YABm MDUw mQ93Xi9awJoaRTEldQVRnE4w eupuo1onopjjKoYxECNlJYf9 OCy5FSMtvNvqYzOvPMM0FxP5 ZXJ0 gRPvfK6hjLjdzjkwiB6vBrq+ MMDdIPFzYLf0ZFwhnOB+PHRk JUW2fUmcUCrqXZPiaS2fBAHw Z2h0 YbCpMzR6CBcpS6WjCVWgpoyn Kz22zN8jNnWoIrB0DDgdG1Px qhD2TTIdqFIeNBmeHJJ5D67q b3I6 EUEmMUUmCOM9uYU4lO4ytUjj bjogbGVmdDsgdmVydGljYWwt RQiuX531BWJkgAwlSnC8OZgk YXJz PM37PY14xUIhq1K8jAQ4O2Kx BMRxbqozzjclkOB1EISlTZUp cF43uAOfOTqoHc2iy4D9p971 IDAu NFYwfQ56Bb2jjVjqCSHtaOKG lS0xryaat1zcyshzQsGpTPMb YJw2LLx1JOJmtRxkFnTzMNJ2 OyB2 ULH6eZBeuW2tcNlcdmlhdE4e Oyc+PrSMBJfAXP88XG41bCVw j7D0qNO3P2BxHTTjjfncflqq aHQ6 SPJjLACnaX01zYQpRHbuKh4c x2A6w962TTZhDOTolA53Mj9k uFqmGMQzgBXEdW7nlbylv9jk cjog UuMnRPObCHs8NMo4FVChxKxi EsUkWAE4YaU1TCA9pFQchZ7k yCyhssjctS9tHsh+UmVjdXJy aW5n SS32xTGngJllbwX9O8BzXvyh dHI+IB16IYMtBM52mKCcoPRh a9xhjKi2JrXwOGKhBYE9cLte PSdi y6RsULWqX63jlMXoj6L9JFJv pCztuYPfFcTefRR5aK0yMPpq sbezm0llgzysBdxpi2geqz46 cD48 J02bPIirZUEsHXPrFEKcZANp oVtpbq7fxD1bCu1+PGNvbCB3 tRE4qO5qKfNdMiC0YIvyA434 InRv pRMfPcxlf4hpt2anzCn6ImWu MHCokkKbpRtnFQO3v4UrZq00 P12fTNvrPBNrIXKhZRYcOCNr bGln ab1msM9nEd2+CW1kf5dsci99 hT42vGQ+VSDaQJQ8wEybSQbc YOKixD2sRRnzVsC6BQMhPfAr aW47 tKWwKYalNl8shUuwiXuiEL1u FAJtjftxd857MrUxe4aqVMYm nVNoHSzmTMT0C52jp9W6VREg MDAw UBR6lME9yT4cwAqqejpyfVYp mLoudkOhfIkrPLecXEyxP222 OYAopRnaOfZewCPhD7euwaFG YW1l OjwvdGQ+ETOlKJT1fZrgKAim RKGnhB4bRFQvY5q6EuGfDpW2 RIvpH2HlpiO7JZItiGAqERNz dCBU pK3frworp3iwggoeMpKqCYQz GNv5WEl5ITUtuAvzWcKnBKD8 QzF9SGX0uJJnjX3vfVxlgzgm dG9w Oyc+RklOOjwvdGQ+PHRkIHN0 tKpvKJdpODFuzC3sKLFmF3o0 PjGiXvE6XBumS0IcnjD1AHXv bGQg XVFllDKYjV9oezzhg6bmstmi JkUgUEBrDHt3KQu5HIPtoSus ZvCiHEI1LkB6NHS9cNReaQ7u bGln lqxkvV7rKik+TVJOOjwvdGQ+ BOBpSST4zVyzSOqrEXLvhV8s XHOlC4y9XcNaYqV6QRztQ8Ti bnQ6 YYLmjWSyRCEjyKQAtK6zemsq j2frcaugGkOdXOIeAKc0HZw3 TIBjsYgdEdDnOQM6BxV2ALN6 aWNh gZ3ggLzhxfbkcB4eYww+UGF5 TFK1EB18EQ42V3HeXrocuSSl bGU+PHRhYmxlIHdpZHRoPScx MDAl JyB (more content not included)... Normal [facility] MR BRAIN W WO CONTon 024 MR BRAIN W WO CONT MR BRAIN W WO CONT MRI brain: HISTORY: Acute transverse myelitis. Paresthesias. Multisequence multiplanar imaging of the brain was obtained. White matter signal characteristics are unremarkable without evidence of demyelination. Ventricles are nondilated. There is no susceptibility and gradient echo sequences. The diffusion-weighted images and corresponding ADC map show no focus of diffusion restriction or acute intracranial ischemia. Cerebellar tonsils are normal position. Contrast-enhanced imaging was acquired in the axial, sagittal, and coronal planes showing no focus of pathologic intracranial enhancement. Basilar cisterns are patent. No mass, midline shift, or vasogenic edema. Paranasal sinuses are clear. IMPRESSION: Normal exam. Finalized by Mckay Dickerson MD on 09/07/2023 12:54 PM Normal [facility] MR THORACIC SPINE W WO CONTo n 09-07-2023 MR THORACIC SPINE W WO CONT MR THORACIC SPINE W WO CONT History: [Acute transverse myelitis. Symptoms recurred one month ago] [Procedure: Standard MR of the thoracic spine was obtained before and after intravenous administration 17.2 mL ProHance gadolinium contrast without reported complication FINDINGS: There is no prior MR of the thoracic spine available for comparison.] MR of the thoracic spine before and after contrast demonstrate that the thoracic vertebra and discs have normal height and signal there is normal signal within the thoracic cord . There is no spinal stenosis, foraminal stenosis, large disc herniation, or evidence of cord impingement. There is no pathologic contrast enhancement within the thoracic spine or cord. Impression: [Unremarkable MR of thoracic spine without obvious signal abnormality or pathologic contrast enhancement.] Finalized by Brendon Daniles MD on 09/07/2023 5:28 PM Normal [facility] C Urineon 08-30-2023 C Urine Urine Culture ordere d as a result of parameters set on specific urine dip and urine microsopic results. Mixed skin, or urogenital willis. Clinically insignificant Normal [facility] Comment on above: Performed By: #### 1 [id number], [id number], [id number] #### [facility] (DEFAULT) [address] [place] [address] Provider Orderson 08-29-2023 Provider Orders [id number] F Normal [facility] .Auto Diff 1on 08-28-2023 Auto Rabun % 7 % Normal -12 [facility] Comment on above: Performed By: #### 1 [id number], [id number], [id number], [id number] #### [facility] (DEFAULT) [address] [place] [address] Baso Abs# 0.0 x10 Normal 0.0-0.2 [facility] Comment on above: Performed By: #### 1 [id number], [id number], [id number], [id number] #### [facility] (DEFAULT) [address] [place] [address] Basophils/100 WBC (Bld) 0.0 % Low 0.2-2.0 [facility] Comment on above: Performed By: #### 1 [id number], [id number], [id number], [id number] #### [facility] (DEFAULT) [address] [place] [address] Eos Abs# 0.0 x10 Normal 0.0-0.4 [facility] Comment on above: Performed By: #### 1 [id number], [id number], [id number], [id number] #### [facility] (DEFAULT) [address] [place] [address] Eosinophils/100 WBC (Bld) 0.0 % Low 0.9-4.0 [facility] Comment on above: Performed By: #### 1 [id number], [id number], [id number], [id number] #### [facility] (DEFAULT) [address] [place] [address] Lymph Abs# 2.3 x10 Normal 1.3-2.9 [facility] Comment on above: Performed By: #### 1 [id number], [id number], [id number], [id number] #### [facility] (DEFAULT) [address] [place] [address] Lymphocytes/100 WBC (Bld) 17 % Normal 14-48 [facility] Comment on above: Performed By: #### 1 [id number], [id number], [id number], [id number] #### [facility] (DEFAULT) [address] [place] [address] Rabun Abs# 1.0 x10 High 0.0-0.8 [facility] Comment on above: Performed By: #### 1 [id number], [id number], [id number], [id number] #### [facility] (DEFAULT) [address] [place] [address] Neut Abs# 10.3 x10 High 1.5-9.2 [facility] Comment on above: Performed By: #### 1 [id number], [id number], [id number], [id number] #### [facility] (DEFAULT) [address] [place] [address] Neutrophils/100 WBC (Bld) 76 % Normal 44-88 [facility] Comment on above: Performed By: #### 1 [id number], [id number], [id number], [id number] #### [facility] (DEFAULT) [address] [place], [place] [id number] CBC w/ Auto Diffon 4 Erythrocyte distribution width (RBC) [Ratio] 16.5 % High 11.5-15.0 [facility] Comment on above: Performed By: #### 1 [id number], [id number], [id number], [id number] #### [facility] (DEFAULT) [address] [place] [address] Hematocrit (Bld) [Volume fraction] 38.4 % Normal 33.7-40.4 [facility] Comment on above: Performed By: #### 1 [id number], 0154129, 69134205, 9335070 #### [facility] (DEFAULT) [address] [place] [address] Hemoglobin (Bld) [Mass/Vol] 12.6 g/dL Normal 11.3-15.9 [facility] Comment on above: Performed By: #### 1 [id number], 4122075, [id number], [id number] #### [facility] (DEFAULT) [address] [place] [address] Man Diff? Auto Invalid Interpretation Code [facility] Comment on above: Performed By: #### 1 [id number], [id number], [id number], [id number] #### [facility] [facility] (DEFAULT) [address] [place] [address] MCH (RBC) [Entitic mass] 27 pg Normal 24-34 [facility] Comment on above: Performed By: #### 1 [id number], [id number], [id number], [id number] #### [facility] (DEFAULT) [address] [place] [address] MCHC (RBC) [Mass/Vol] 33 g/dL Normal 26-37 [facility] Comment on above: Performed By: #### 1 [id number], [id number], [id number], [id number] #### [facility] (DEFAULT) [address] [place] [address] MCV (RBC) [Entitic vol] 82 fL Normal 81-100 [facility] Comment on above: Performed By: #### 1 [id number], [id number], [id number], [id number] #### [facility] (DEFAULT) [address] [place] [address] Platelet 260 x10 Normal 138-427 [facility] Comment on above: Performed By: #### 1 [id number], [id number], 01739274, 7948171 #### [facility] (DEFAULT) [address] [place] [address] Platelet mean volume (Bld) [Entitic vol] 8.2 fL Normal 6.3-10.2 [facility] Comment on above: Performed By: #### 1 [id number], [id number], 86382076, 7332628 #### [facility] (DEFAULT) [address] [place] [address] RBC 4.66 x10 Normal 3.70-5.30 [facility] Comment on above: Performed By: #### 1 [id number], 9056266, 69405472, 8727099 #### [facility] (DEFAULT) [address] [place] [address] WBC 13.6 x10 High 3.5-10.5 [facility] Comment on above: Performed By: #### 1 [id number], 5545269, 62897048, 1049072 #### [facility] (DEFAULT) [address] [place] [address] CMP Standardon 08-28-2023 Breakpoint Chem Normal [facility] Comment on above: Performed By: #### 1 [id number], 5667770, 13996127, 0730253 #### [facility] (DEFAULT) [address] [place] [address] eGFR Non AA >60 Invalid Interpretation Code [facility] Comment on above: Performed By: #### 1 [id number], 2760490, 33644319, 7369240 #### [facility] (DEFAULT) [address] [place] [address] eGFR AA >60 Invalid Interpretation Code [facility] Comment on above: Performed By: #### 1 [id number], [id number], 48748780, [id number] #### [facility] (DEFAULT) [address] [place] [address] Albumin [Mass/Vol] 4.0 g/dL Normal 3.5-5.0 [facility] Comment on above: Performed By: #### 1 [id number], [id number], 18297224, 3442442 #### [facility] (DEFAULT) [address] [place] [address] Albumin/Globulin [Mass ratio] 1.1 {ratio} Low 1.4-2.6 [facility] Comment on above: Performed By: #### 1 [id number], 4575520, 68040163, 2918629 #### [facility] (DEFAULT) [address] [place] [address] Alk Phos 58 IU/L Normal 32-91 [facility] Comment on above: Performed By: #### 1 [id number], 0999302, 83490021, 5571138 #### [facility] (DEFAULT) [address] [place] [address] ALT [Catalytic activity/Vol] 17.0 U/L Normal 14.0-54.0 [facility] Comment on above: Performed By: #### 1 [id number], 3436233, 88879441, 9699705 #### [facility] (DEFAULT) [address] [place] [address] Anion gap [Moles/Vol] 8.8 mmol/L Normal 5.0-19.0 [facility] Comment on above: Performed By: #### 1 [id number], 9338156, 21802374, 0966886 #### [facility] (DEFAULT) [address] [place] [address] AST [Catalytic activity/Vol] 21 U/L Normal 15-41 [facility] Comment on above: Performed By: #### 1 [id number], 2993635, 22552116, 8098173 #### [facility] (DEFAULT) [address] [place] [address] Bili Total 0.3 mg/dL Normal 0.3-1.2 [facility] Comment on above: Performed By: #### 1 [id number], 4428556, 29626324, 1573636 #### [facility] (DEFAULT) [address] [place] [address] Calcium [Mass/Vol] 9.2 mg/dL Normal 8.9-10.3 [facility] Comment on above: Performed By: #### 1 [id number], 4934489, 25494976, 7390097 #### [facility] (DEFAULT) [address] [place] [address] Chloride [Moles/Vol] 106 mmol/L Normal 101-111 [facility] Comment on above: Performed By: #### 1 [id number], 2138061, 94296690, 5878748 #### [facility] (DEFAULT) [address] [place] [address] CO2 [Moles/Vol] 27 mmol/L Normal 21-32 [facility] Comment on above: Performed By: #### 1 [id number], 4199051, 25331537, 0528879 #### [facility] (DEFAULT) [address] [place] [address] Creatinine [Mass/Vol] 0.91 mg/dL Normal 0.60-1.30 [facility] Comment on above: Performed By: #### 1 [id number], 1119376, 51939796, 5495635 #### [facility] (DEFAULT) [address] [place] [address]294 Globulin (S) [Mass/Vol] 3.4 g/dL Normal 1.5-4.3 [facility] Comment on above: Performed By: #### 1 [id number], 4634093, 65581509, 3713704 #### [facility] (DEFAULT) [address] [place] [address]1651 Glucose [Mass/Vol] 139.0 mg/dL High 74.0-118.0 [facility] Comment on above: Performed By: #### 1 [id number], 4684298, 38998238, 9797400 #### [facility] (DEFAULT) [address] [place] [address] Osmolality 280 mOsm/L Invalid Interpretation Code [facility] Comment on above: Performed By: #### 1 [id number], 0052079, 17895675, 6211828 #### [facility] (DEFAULT) [address] [place] [address] 00498 Potassium [Moles/Vol] 3.8 mmol/L Normal 3.6-5.1 [facility] Comment on above: Performed By: #### 1 [id number], 0494261, 25353714, 0772067 #### [facility] (DEFAULT) [address] [place] [address]64 Protein [Mass/Vol] 7.4 g/dL Normal 6.5-8.1 [facility] Comment on above: Performed By: #### 1 [id number], 1962648, 02861652, 1918549 #### [facility] (DEFAULT) [address] [place] [address] 11541 Sodium [Moles/Vol] 138.0 mmol/L Normal 136.0-144.0 [facility] Comment on above: Performed By: #### 1 [id number], 1832612, 02158029, 4472855 #### [facility] (DEFAULT) [address] [place] [address] 09472 Urea nitrogen [Mass/Vol] 20 mg/dL Normal 8-26 [facility] Comment on above: Performed By: #### 1 [id number], 1556204, 75518459, 0144676 #### [facility] (DEFAULT) [address] [place] [address] 35657 Urea nitrogen/Creatinine [Mass ratio] 21.9 mg/mg High 4.6-16.2 [facility] Comment on above: Performed By: #### 1 [id number], 8045462, 68436224, 5648718 #### [facility] (DEFAULT) [address] [place] [address] 67949 Sed Rateon 08-28-2023 Sed Rate 5 mm/hr Normal 0-20 [facility] Comment on above: Performed By: #### 1 [id number], 1992102, 18730988, 4481084 #### [facility] (DEFAULT) [address] [place] [address]09 UA Lscrs3ov 08-28-2023 UA Bacteria 3+ Normal [facility] Comment on above: Order Comment: Urina lysis Microscopic order added on by [employer] system. Performed By: #### 1 [id number], 54533517, 0688515 #### [facility] (DEFAULT) [address] [place] [address] UA Mucous 1+ [facility] Comment on above: Order Comment: Urina lysis Microscopic order added on by [employer] Rules system. Performed By: #### 1 [id number], 34294302, 8737630 #### [facility] (DEFAULT) [address] [place] [address] UA RBC 5-[address] [facility] Comment on above: Order Comment: Urina lysis Microscopic order added on by [employer] Expert Rules system. Performed By: #### 1 [id number], 03343847, 5834858 #### [facility] (DEFAULT) [address] [place] [address] UA Squam Epi Moderate [facility] Comment on above: Order Comment: Urina lysis Microscopic order added on by [employer] Expert Rules system. Performed By: #### 1 [id number], 60609120, 0252415 #### [facility] (DEFAULT) [address] [place] [address] UA WBC 10-[address] [facility] Comment on above: Order Comment: Urina lysis Microscopic order added on by [employer] Rules system. Performed By: #### 1 [id number], 73556528, 7459606 #### [facility] (DEFAULT) [address] [place] [address] UA w Culture if Ind Standard on 08-28-2023 Breakpoint UA [facility] Comment on above: Performed By: #### 1 [id number], 45510940, 0850558 #### [facility] (DEFAULT) [address] [place] [address] Color (U) Yellow [facility] Comment on above: Performed By: #### 1 [id number], 60723349, 5905012 #### [facility] (DEFAULT) [address] [place] [address] Culture? Indicated Invalid Interpretation Code [facility] Comment on above: Result Comment: Resu lt created by rule GL_MAGR_ADD_UA_CULT Result created by rule GL_MAGR_ADD_UA_CULT Result created by rule GL_MAGR_ADD_UA_CULT1 Result created by rule GL_MAGR_ADD_UA_CULT Performed By: #### 1 [id number], 15742680, 6095264 #### [facility] (DEFAULT) [address] [place] [address] Glucose (U) [Mass/Vol] Negative Normal [facility] Comment on above: Performed By: #### 1 [id number], 48408893, 5211155 #### [facility] (DEFAULT) [address] [place] [address] Ketones Ql (U) TRACE Normal [facility] Comment on above: Performed By: #### 1 [id number], 59551629, 1012870 #### [facility] (DEFAULT) [address] [place] [address] Micro? Indicated Invalid Interpretation Code [facility] Comment on above: Result Comment: Resu lt created by rule GL_MAGR_ADD_UA_MICRO Performed By: #### 1 [id number], 79590024, 1733359 #### [facility] (DEFAULT) [address] [place] [address] UA Bilirubin Negative Normal [facility] Comment on above: Performed By: #### 1 [id number], 76601053, 7589809 #### [facility] (DEFAULT) [address] [place] [address] UA Blood Negative Normal [facility] Comment on above: Performed By: #### 1 [id number], 04957502, 1844233 #### [facility] (DEFAULT) [address] [place] [address] UA Clarity CLEAR Normal CLEAR [facility] Comment on above: Performed By: #### 1 [id number], 59181806, 7915948 #### [facility] (DEFAULT) [address] [place] [address] 12107 UA Leuk Est Negative Normal NEGATIVE [facility] Comment on above: Performed By: #### 1 [id number], 73445832, 6883800 #### [facility] (DEFAULT) [address] [place] [address] 83911 UA Nitrite Negative Normal NEGATIVE [facility] Comment on above: Performed By: #### 1 [id number], 67316136, 7960010 #### [facility] (DEFAULT) [address] [place] [address] 40510 UA pH 6.5 Normal 5-8 [facility] Comment on above: Performed By: #### 1 [id number], 37821735, 5451216 #### [facility] (DEFAULT) [address] [place] [address] 45967 UA Protein TRACE Abnormal NEGATIVE [facility] Comment on above: Performed By: #### 1 [id number], 39294921, 1695264 #### [facility] (DEFAULT) [address] [place] [address] 89111 UA Spec Grav 1.025 Normal 1.001-1.035 [facility] Comment on above: Performed By: #### 1 [id number], 42562729, 5439268 #### [facility] (DEFAULT) [address] [place] [address] 67187 UA Urobilinogen 0.2 mg/dL Normal 0.2-1.0 [facility] Comment on above: Performed By: #### 1 [id number], 90071312, 5947411 #### [facility] (DEFAULT) [address] [place] [address] 18083 Urine Source Clean Catch Normal [facility] Comment on above: Performed By: #### 1 [id number], 05975746, 5793546 #### [facility] (DEFAULT) [address] [place] [address]103 Progress Note - Nurseon Progress Note - Nurse Patient arrived wi th significant other at 0940 for outpatient IV Methylprednisolone infusion. IV access obtained per electrician helper powerhouse, Etta RN, #[id number] to Right AC. Methylprednisolone infusion administered per orders, ran for 55 minutes. IV flushed and discontinued. Gauze dressing applied. Patient denied questions or needs. Patient discharged to home with already scheduled follow up. [Electronically Signed on: 08/27/2023 12:58 EDT] Erna Amezquita RN [Verified on: 08/27/2023 12:58 EDT] Erna Amezquita RN [facility] Provider Orderson 08-26-2023 Provider Orders [id number] TIFF [facility] MR CERVICAL SPINE W WO CONTo n 08-23-2023 MR CERVICAL SPINE W WO CONT MR CERVICAL SPINE W WO CONT MR CERVICAL SPINE W WO CONT 08/22/2023 9:21 AM INDICATION: Abnormal MRI, cervical spine, numbness and weakness COMPARISON: Cervical spine MRI 10/15/2022 TECHNIQUE: Multiplanar multisequence MR images of the cervical spine with and without contrast were obtained. FINDINGS: NUMBERING/ALIGNMENT: There are 7 cervical type vertebrae. Vertebral body alignment is appropriate. Facet alignment is appropriate. Vertebral body heights are well-maintained. BONE MARROW: Normal bone marrow signal throughout. No suspicious enhancing lesion. SPINAL CORD: Redemonstration of focal spinal cord lesion at the C3-C4 level which slightly expands the posterior spinal cord, is T2 bright, and does not demonstrate definite enhancement. The T2 signal has decreased in this lesion compared to prior exam, however size is overall slightly larger, with ill-defined margins, measuring approximately 13 x 6 x 5 mm. There is no definite associated enhancement. No definite low signal on gradient sequence to suggest hemorrhage. No additional spinal cord lesions present. HEAD: Visualized portions of the intracranial contents are unremarkable. SOFT TISSUES: Unremarkable paraspinal soft tissues. DEGENERATIVE FINDINGS: Mild degenerative disc disease throughout. Craniocervical junction: Normal alignment at the craniocervical junction without narrowing at the foramen magnum and at C1-C2. Mild degenerative changes of the dens. C2-C3: No significant neural foraminal or thecal sac narrowing. C3-C4: Minimal disc bulge and facet degeneration. No significant spinal canal or neural foraminal stenosis. C4-C5: Mild disc osteophyte complex and mild effacement of thecal sac anteriorly. No significant neural foraminal narrowing. C5-C6: No significant neural foraminal or thecal sac narrowing. Minimal disc bulge. C6-C7: No significant neural foraminal or thecal sac narrowing. C7-T1: No significant neural foraminal or thecal sac narrowing. Likely small perineural cysts within neural foramen. IMPRESSION: Focal lesion of the C3-C4 spinal cord, as seen on prior, favored to be slightly larger compared to prior exam without definite associated enhancement, and slight expansion of the spinal cord this level. Given persistence and spinal cord expansion, neoplasm should be considered versus additional etiology such as focal demyelinating lesion. Further evaluation with completion MRI of the entire neural axis including MR brain with contrast recommended to evaluate for additional lesions. CSF sampling may also be helpful. THIS REPORT CONTAINS A SIGNIFICANT RESULT AND/OR RECOMMENDATION, WHICH REQUIRES THE ATTENTION OF THE LICENSED CAREGIVER RESPONSIBLE FOR THIS PATIENT. THEREFORE, I SPECIFICALLY DESIGNATED THIS REPORT TO BE TELEPHONED BY THE RADIOLOGY DEPARTMENT. FINDINGS WERE INSTRUCTED TO BE CALLED TO THE CLINICAL SERVICE ON 08/22/2023 AT 11:21 AM. IJosefina DO have personally reviewed the image(s) and agree with and/or edited the report Finalized by Josefina Isaacs DO on 08/23/2023 11:22 AM Normal [facility] Complete Blood Count Auto Di ffon 04-07-2023 Basophils (Bld) [#/Vol] 0.0 10*3/uL Normal 0.0-0.2 The Count Includes [facility] Comment on above: Result Comment: PERF ORMED BY: [place] [address] PATHOLOGIST GARNISHMENT SPECIALIST ANU RICK M.D. Performed By: #### C SF GLU, CSFCCDIFF, CSF TP #### [address] Basophils/100 WBC (Bld) 0.1 % Normal . The Count Includes [facility] Comment on above: Performed By: #### C SF GLU, CSFCCDIFF, CSF TP #### [address] Eosinophils (Bld) [#/Vol] 0.0 10*3/uL Normal 0.0-0.45 The Count Includes [facility] Comment on above: Performed By: #### C SF GLU, CSFCCDIFF, CSF TP #### [address] Eosinophils/100 WBC (Bld) 0.1 % Normal . The Count Includes [facility] Comment on above: Performed By: #### C SF GLU, CSFCCDIFF, CSF TP #### [address] Erythrocyte distribution width (RBC) [Ratio] 12.8 % Normal 11.9-15.3 The Count Includes [facility] Comment on above: Performed By: #### C SF GLU, CSFCCDIFF, CSF TP #### [address] Hematocrit (Bld) [Volume fraction] 27.3 % Significant change down 34.0-46.4 The Count Includes [facility] Comment on above: Performed By: #### C SF GLU, CSFCCDIFF, CSF TP #### [address] Hemoglobin (Bld) [Mass/Vol] 9.2 g/dL Low 11.8-15.4 The Count Includes [facility] Comment on above: Performed By: #### C SF GLU, CSFCCDIFF, CSF TP #### [address] Lymphocytes (Bld) [#/Vol] 2.3 10*3/uL Normal 1.00-4.8 The Count Includes [facility] Comment on above: Performed By: #### C SF GLU, CSFCCDIFF, CSF TP #### [address] Lymphocytes/100 WBC (Bld) 13.6 % Normal . The Count Includes [facility] Comment on above: Performed By: #### C SF GLU, CSFCCDIFF, CSF TP #### [address] MCH (RBC) [Entitic mass] 30.5 pg Normal 24.7-34.3 The Count Includes [facility] Comment on above: Performed By: #### C SF GLU, CSFCCDIFF, CSF TP #### [address] MCV (RBC) [Entitic vol] 90.2 fL Normal 80-100 The Count Includes [facility] Comment on above: Performed By: #### C SF GLU, CSFCCDIFF, CSF TP #### [address] Mean Corpuscular HGB Conc 33.8 g/dL Normal 32.0-35.0 The Count Includes [facility] Comment on above: Performed By: #### C SF GLU, CSFCCDIFF, CSF TP #### [address] Monocytes (Bld) [#/Vol] 1.4 10*3/uL High 0.0-0.8 The Count Includes [facility] Comment on above: Performed By: #### C SF GLU, CSFCCDIFF, CSF TP #### [address] Monocytes/100 WBC (Bld) 8.3 % Normal . The Count Includes [facility] Comment on above: Performed By: #### C SF GLU, CSFCCDIFF, CSF TP #### [address] Neutrophils (Bld) [#/Vol] 13.2 10*3/uL High 1.8-7.7 The Count Includes [facility] Comment on above: Performed By: #### C SF GLU, CSFCCDIFF, CSF TP #### [address] Neutrophils/100 WBC (Bld) 77.9 % Normal . The Count Includes [facility] Comment on above: Performed By: #### C SF GLU, CSFCCDIFF, CSF TP #### [address] NRBC% 0.1 /100{WBC} Normal 0-0.5 The Count Includes [facility] Comment on above: Performed By: #### C SF GLU, CSFCCDIFF, CSF TP #### [address] Platelet mean volume (Bld) [Entitic vol] 7.9 fL Normal 6.3-10.7 The Count Includes [facility] Comment on above: Performed By: #### C SF GLU, CSFCCDIFF, CSF TP #### [address] Platelets (Bld) [#/Vol] 234 10*3/uL Normal 150-450 The Count Includes [facility] Comment on above: Performed By: #### C SF GLU, CSFCCDIFF, CSF TP #### [address] RBC (Bld) [#/Vol] 3.02 10*6/uL Low 3.60-5.00 The Count Includes [facility] Comment on above: Performed By: #### C SF GLU, CSFCCDIFF, CSF TP #### [address] WBC (Bld) [#/Vol] 16.9 10*3/uL High 3.8-11.6 The Count Includes [facility] Comment on above: Performed By: #### C SF GLU, CSFCCDIFF, CSF TP #### [address] Complete Blood Count Auto Di ffon 04-06-2023 Basophils (Bld) [#/Vol] 0.0 10*3/uL Normal 0.0-0.2 The Count Includes [facility] Comment on above: Result Comment: PERF ORMED BY: [place] [address] PATHOLOGIST GARNISHMENT SPECIALIST ANU RICK M.D. Performed By: #### C SF GLU, CSFCCDIFF, CSF TP #### [address] Basophils/100 WBC (Bld) 0.3 % Normal . The Count Includes [facility] Comment on above: Performed By: #### C SF GLU, CSFCCDIFF, CSF TP #### [address] Eosinophils (Bld) [#/Vol] 0.0 10*3/uL Normal 0.0-0.45 The Count Includes [facility] Comment on above: Performed By: #### C SF GLU, CSFCCDIFF, CSF TP #### [address] Eosinophils/100 WBC (Bld) 0.4 % Normal . The Count Includes [facility] Comment on above: Performed By: #### C SF GLU, CSFCCDIFF, CSF TP #### [address] Erythrocyte distribution width (RBC) [Ratio] 12.9 % Normal 11.9-15.3 The Count Includes [facility] Comment on above: Performed By: #### C SF GLU, CSFCCDIFF, CSF TP #### [address] Hematocrit (Bld) [Volume fraction] 38.4 % Normal 34.0-46.4 The Count Includes [facility] Comment on above: Performed By: #### C SF GLU, CSFCCDIFF, CSF TP #### [address] Hemoglobin (Bld) [Mass/Vol] 13.1 g/dL Normal 11.8-15.4 The Count Includes [facility] Comment on above: Performed By: #### C SF GLU, CSFCCDIFF, CSF TP #### [address] Lymphocytes (Bld) [#/Vol] 2.7 10*3/uL Normal 1.00-4.8 The Count Includes [facility] Comment on above: Performed By: #### C SF GLU, CSFCCDIFF, CSF TP #### [address] Lymphocytes/100 WBC (Bld) 24.7 % Normal . The Count Includes [facility] Comment on above: Performed By: #### C SF GLU, CSFCCDIFF, CSF TP #### [address] MCH (RBC) [Entitic mass] 30.9 pg Normal 24.7-34.3 The Count Includes [facility] Comment on above: Performed By: #### C SF GLU, CSFCCDIFF, CSF TP #### [address] MCV (RBC) [Entitic vol] 90.6 fL Normal 80-100 The Count Includes [facility] Comment on above: Performed By: #### C SF GLU, CSFCCDIFF, CSF TP #### [address] Mean Corpuscular HGB Conc 34.1 g/dL Normal 32.0-35.0 The Count Includes The [facility] [facility] Comment on above: Performed By: #### C SF GLU, CSFCCDIFF, CSF TP #### [address] Monocytes (Bld) [#/Vol] 0.7 10*3/uL Normal 0.0-0.8 The Count Includes [facility] Comment on above: Performed By: #### C SF GLU, CSFCCDIFF, CSF TP #### [address] Monocytes/100 WBC (Bld) 6.1 % Normal . The Count Includes [facility] Comment on above: Performed By: #### C SF GLU, CSFCCDIFF, CSF TP #### [address] Neutrophils (Bld) [#/Vol] 7.3 10*3/uL Normal 1.8-7.7 The Count Includes [facility] Comment on above: Performed By: #### C SF GLU, CSFCCDIFF, CSF TP #### [address] Neutrophils/100 WBC (Bld) 68.5 % Normal . The Count Includes [facility] Comment on above: Performed By: #### C SF GLU, CSFCCDIFF, CSF TP #### [address] NRBC% 0.0 /100{WBC} Normal 0-0.5 The Count Includes [facility] Comment on above: Performed By: #### C SF GLU, CSFCCDIFF, CSF TP #### [address] Platelet mean volume (Bld) [Entitic vol] 8.6 fL Normal 6.3-10.7 The Count Includes [facility] Comment on above: Performed By: #### C SF GLU, CSFCCDIFF, CSF TP #### [place] [address] [place] Platelets (Bld) [#/Vol] 256 10*3/uL Normal 150-450 The Count Includes [facility] Comment on above: Performed By: #### C SF GLU, CSFCCDIFF, CSF TP #### [address] RBC (Bld) [#/Vol] 4.23 10*6/uL Normal 3.60-5.00 The Count Includes [facility] Comment on above: Performed By: #### C SF GLU, CSFCCDIFF, CSF TP #### [address] WBC (Bld) [#/Vol] 10.7 10*3/uL Normal 3.8-11.6 The Count Includes [facility] Comment on above: Performed By: #### C SF GLU, CSFCCDIFF, CSF TP #### [address] Dipstick and Microscopicon 1 06-06-2022 Appearance (U) Turbid Critically abnormal Clear The Count Includes [facility] Comment on above: Order Comment: Name Collection Type:: Yan Catheter Performed By: #### A DDONUAPLUS #### [address] Bacteria,Urine None Seen Normal None Seen The Count Includes [facility] Comment on above: Order Comment: Name Collection Type:: Yan Catheter Performed By: #### A DDONUAPLUS #### [address] Bilirubin,Urine Negative Normal Negative The Count Includes [facility] Comment on above: Order Comment: Name Collection Type:: Yan Catheter Performed By: #### A DDONUAPLUS #### [address] Color (U) Yellow Normal Yellow The Count Includes [facility] Comment on above: Order Comment: Name Collection Type:: Yan Catheter Performed By: #### A DDONUAPLUS #### [address] Glucose Ql (U) Normal Normal Normal The Count Includes [facility] Comment on above: Order Comment: Name Collection Type:: Yan Catheter Performed By: #### A DDONUAPLUS #### [place] [address] [place] Hyaline Casts,Urine None Seen Normal 0-1 The Count Includes [facility] Comment on above: Order Comment: Name Collection Type:: Yan Catheter Performed By: #### A DDONUAPLUS #### [address] Ketones Ql (U) 2+ High Negative The Count Includes [facility] Comment on above: Order Comment: Name Collection Type:: Yan Catheter Performed By: #### A DDONUAPLUS #### [address] Leukocyte esterase Test strip Ql (U) Negative Normal Negative The Count Includes [facility] Comment on above: Order Comment: Name Collection Type:: Yan Catheter Performed By: #### A DDONUAPLUS #### [place] [address] [place] Nitrite,Urine Negative Normal Negative The Count Includes [facility] Comment on above: Order Comment: Name Collection Type:: Yan Catheter Performed By: #### A DDONUAPLUS #### [place] [address] [place] Occult Blood,Urine 2+ High Negative The Count Includes [facility] Comment on above: Order Comment: Name Collection Type:: Yan Catheter Result Comment: PERF ORMED BY: [place] [address] PATHOLOGIST GARNISHMENT SPECIALIST ANU RICK M.D. Performed By: #### A DDONUAPLUS #### [address] Other Casts,Urine None Seen Normal None Seen The Count Includes [facility] Comment on above: Order Comment: Name Collection Type:: Yan Catheter Result Comment: PERF ORMED BY: [place] [address] PATHOLOGIST GARNISHMENT SPECIALIST ANU RICK M.D. Performed By: #### A DDONUAPLUS #### [address] pH (U) 6.0 [pH] Normal 5.0-9.0 The Count Includes [facility] Comment on above: Order Comment: Name Collection Type:: Yan Catheter Performed By: #### A DDONUAPLUS #### [address] Protein (U) [Mass/Vol] 30 mg/dL High Negative Th e Count Includes [facility] Comment on above: Order Comment: Name Collection Type:: Yan Catheter Performed By: #### A DDONUAPLUS #### [address] RBC,Urine 20-49 High 0-4 The Count Includes [facility] Comment on above: Order Comment: Name Collection Type:: Yan Catheter Performed By: #### A DDONUAPLUS #### [address] Renal Epithelial Cells,Urine None Seen Normal 0-1 The Count Includes [facility] Comment on above: Order Comment: Name Collection Type:: Yan Catheter Performed By: #### A DDONUAPLUS #### [address] Specificy [place],Urine 1.028 Normal 1.001-1.030 The Count Includes [facility] Comment on above: Order Comment: Name Collection Type:: Yan Catheter Performed By: #### A DDONUAPLUS #### [address] Squamous Epithelial Cell,Urine 10-19 High 0-2 The Count Includes [facility] Comment on above: Order Comment: Name Collection Type:: Yan Catheter Performed By: #### A DDONUAPLUS #### [address] [place] [address] [facility] Urobilinogen,Urine Normal Normal Normal The Count Includes [facility] Comment on above: Order Comment: Name Collection Type:: Yan Catheter Performed By: #### A DDONUAPLUS #### [facility] [address] [place] [id number] [place] WBC,Urine 3-4 Normal 0-4 The Count Includes [facility] Comment on above: Order Comment: Name Collection Type:: Yan Catheter Performed By: #### A DDONUAPLUS #### [facility] [address] [place] [id number] [facility] 04-06-2023 L ---- Specimen: [id number] Received: 04/07/23 Status: JOSE Brandt Num: [id number] Spec Type: Surgical Subm Dr: Tiburcio Bass DO Tissues: A Placenta - 3rd Trimester (Greater than 28 weeks) (PLACENTA AND CORD) Procedures: BRIT/Emily, Gross/Micro L5 Age/ Patient Sex Location Account Attending Physician Ladi Bernstein 22/F 3S [id number] Tiburcio Bass DO SPEC NUM: [id number] RECD: 04/07/23 STATUS: JOSE BRANDT NUM: [id number] BEV: 04/06/[address] [facility] [address]: Tiburcio Bass DO ENTERED: 04/07/[address] [facility] DR: ALLYN TYPE: Surgical DEPT: S ORDERED: HE/3, Gross/Micro L5 ORDERED: HE/3, Gross/Micro L5 Pathological Diagnosis Placenta, emergent delivery: - premature late second trimester placenta with three-vessel cord, 252 g -No evidence of acute chorioamnionitis, funisitis, or villitis -Patchy edematous changes of villous stroma per immaturity of the chorionic villi corresponding to the the stated gestational age -Incidental 1 small cord hematoma -No other significant histopathological changes except patchy mild nonspecific chronic deciduitis Clinical Information 25 weeks 1 day IUP, spontaneous labor Gross Description The specimen is received in formalin labeled with the patient's name designated placenta and consists of a 252 g, 15.0 x 13.0 x 2.0 cm evga placenta with attached membranes and umbilical cord. The umbilical cord is 5.5 cm in length x 0.8 cm in diameter. The umbilical cord does not have a twist. The cut surfaces of the umbilical cord show three vessels. Specimen: [id number] Received: 04/07/23 Status: JOSE Brandt Num: [id number] Spec Type: Surgical Subm Dr: Tibrucio Bass DO Tissues: A Placenta - 3rd Trimester (Greater than 28 weeks) (PLACENTA AND CORD) Procedures: Cleo WARD/Alyce L5 Patient: DayLadi shelton Yi [id number] (Continued) Specimen: [id number] Received: 04/07/23 (Continued) Gross Description (Continued) Signed (signature on file) Bruce Riley MD 04/08/23 1439 Specimen: [id number] Received: 04/07/23 Status: JOSE Brandt Num: [id number] Spec Type: Surgical Subm Dr: Tiburcio Bass DO Tissues: A Placenta - 3rd Trimester (Greater than 28 weeks) (PLACENTA AND CORD) Procedures: BRITCleo Diaz/Alyce L5 Patient: Ladi Bernstein [id number] (Continued) Specimen: [id number] Received: 04/07/23 (Continued) Gross Description (Continued) There are no true knots present. There is no evidence of torn cord present. The umbilical cord is eccentrically inserted and extends to within 2.0 cm of the placental margin. The membranes are inserted marginally and are young-pink, smooth, dusky, and opaque. The site of membrane rupture is at the placental margin. The surface is blue-purple, smooth, and glistening with multiple tortuous blood vessels. The blood vessels are of the normal course and caliber for the gestational age. There is no subchorionic fibrin deposition present. The maternal surface is complete and is comprised of multiple red-brown, homogenous, soft, spongy cotyledons without calcific spiculations. The cut surfaces of the placenta show red- brown, homogenous, soft, spongy tissue without abnormality. Talent Assistant sections are submitted in three cassettes labeled as follows: A1 membrane roll and umbilical cord, A2 full-thickness transverse section of placenta, marginally, A3 full-thickness transverse section of placenta, centrally. Microscopic Description Microscopic examinations are performed CPT Codes 19758 Specimen: [id number] Received: 04/07/23 Status: JOSE Brandt Num: [id number] Spec Type: Surgical Subm Dr: Tiburcio Bass, DO Tissues: A Placenta - 3rd T (more content not included)... Normal The Count Includes [facility] OB Urine Drug Screen (NO THC )on 04-06-2023 Amphetamine Screen,Urine Negative Normal Negative The Count Includes [facility] Comment on above: Performed By: #### O BUDS #### [address] Barbiturate Screen,Urine Negative Normal Negative The Count Includes [facility] Comment on above: Performed By: #### O BUDS #### [place] [address] [place] Benzodiazepines Screen,Urine Negative Normal Negative The Count Includes [facility] Comment on above: Performed By: #### O BUDS #### [address] Cocaine Screen,Urine Negative Normal Negative The Count Includes [facility] Comment on above: Performed By: #### O BUDS #### [place] [address] [place] Opiate Screen,Urine Negative Normal Negative The Count Includes [facility] Comment on above: Performed By: #### O BUDS #### [address] Phencyclidine Screen, Urine Negative Normal Negative The Count Includes [facility] Comment on above: Result Comment: Thes e are unconfirmed results and should not be used for legal purposes. Drug Cut-Off Concentration: AMPH 1000 ng/mL PERRY 200 ng/mL EDITH 200 ng/mL COCM 300 ng/mL OP 300 ng/mL PCP 25 ng/mL PERFORMED BY: [place] [address] PATHOLOGIST GARNISHMENT SPECIALIST ANU RICK M.D. Performed By: #### O BUDS #### [address] RPR w/rfx to Quant TP Abson 04-06-2023 RPR, Rfx Quant RPR Non-Reactive Normal Non Reactive Th e Count Includes [facility] Comment on above: Result Comment: Perf ormed at: - [facility] [id number] Breaker Up Machine Operator: Mckay Cifuentes PhD, Phone: [phone] PERFORMED BY: [place] [address] PATHOLOGIST GARNISHMENT SPECIALIST ANU RICK M.D. Performed By: #### R OH W RFX #### [facility] , Type and Screenon 04-06-2023 ABO and Rh group Nom (Bld) Blood group O Rh(D) positive Normal The Count Includes [facility] Aerobic Cultureon 12-09-2022 Aerobic Culture Result Tab Codes No Growth 3 Days Anaerobic Culture Results No Anaerobes Isolated 3 Days Gram Stain Result No White Blood Cells Seen No Bacteria Seen PERFORMED BY: [place] [address] PATHOLOGIST GARNISHMENT SPECIALIST ANU RICK M.D. Normal The Count Includes [facility] Comment on above: Performed By: #### G S, AERC #### [address] CSF Angiotensin Converting E nzon 12-09-2022 CSF Angiotensin Converting Enz <1.5 Normal 0.0-2.5 The Count Includes [facility] Comment on above: Result Comment: Resu lts of this test are labeled for research purposes only by the assay's process area supervisor. The performance characteristics of this assay have not been established by the process area supervisor. The result should not be used for treatment or for diagnostic purposes without confirmation of the diagnosis by another medically established diagnostic product or procedure. The performance characteristics were determined by [facility]. Performed at: [facility] [id number] Breaker Up Machine Operator: Bon Solis MD, Phone: [phone] PERFORMED BY: [place] [address] PATHOLOGIST GARNISHMENT SPECIALIST ANU RICK M.D. Performed By: #### C SF GLU, CSFCCDIFF, CSF TP #### [address] CSF and Ser Oligoclonal Band son 12-09-2022 Oligoclonal Bands Interpret Normal The Count Includes [facility] Comment on above: Order Comment: Tube Number for CSF Cell Count #1: 4 Result Comment: Test not performed. The requested test was omitted during the drive thru order taker process and the specimen is no longer available for testing. test [id number] PANEL Oligoclonal Banding, Serum+CSF contacted your facility on 02-09-2023 Performed By: #### C SF GLU, CSFCCDIFF, CSF TP #### [address] CSF, SREE Protein Electrophor on 12-09-2022 Albumin, CSF 50.2 % Normal 47.8-69.1 The Count Includes [facility] Comment on above: Order Comment: Tube Number for CSF Cell Count #1: 4 Performed By: #### C SF GLU, CSFCCDIFF, CSF TP #### [place] [address] [place] Alpha-1 Globulin, CSF 1.7 % Low 2.2-6.2 The Count Includes [facility] Comment on above: Order Comment: Tube Number for CSF Cell Count #1: 4 Performed By: #### C SF GLU, CSFCCDIFF, CSF TP #### [place] [address] [place] Alpha-2 Globulin, CSF 4.8 % Normal 2.7-8.2 The Count Includes [facility] Comment on above: Order Comment: Tube Number for CSF Cell Count #1: 4 Performed By: #### C SF GLU, CSFCCDIFF, CSF TP #### [place] [address] [place] Beta Globulin, CSF 15.4 % Normal 11.8-21.7 The Count Includes [facility] Comment on above: Order Comment: Tube Number for CSF Cell Count #1: 4 Performed By: #### C SF GLU, CSFCCDIFF, CSF TP #### [address] Gamma Globulin, CSF 23.9 % High 2.8-8.5 The Count Includes [facility] Comment on above: Order Comment: Tube Number for CSF Cell Count #1: 4 Result Comment: Prot ein electrophoresis scan will follow via computer, mail, or four horse hitch driver delivery. Performed at: - [facility] [id number] Breaker Up Machine Operator: Mckay Cifuentes PhD, Phone: [phone] Performed By: #### C SF GLU, CSFCCDIFF, CSF TP #### [address] Immunoelectropheresis CSF Abnormal . The Count Includes [facility] Comment on above: Order Comment: Tube Number for CSF Cell Count #1: 4 Result Comment: Immu nofixation shows IgG monoclonal protein with kappa light chain specificity. Performed By: #### C SF GLU, CSFCCDIFF, CSF TP #### [address] Pre-Albumin, CSF 3.9 % Normal 2.2-7.7 The Count Includes [facility] Comment on above: Order Comment: Tube Number for CSF Cell Count #1: 4 Performed By: #### C SF GLU, CSFCCDIFF, CSF TP #### [address] Total Protein, CSF 15.3 mg/dL Normal 0.0-44.0 The Count Includes [facility] Comment on above: Order Comment: Tube Number for CSF Cell Count #1: 4 Performed By: #### C SF GLU, CSFCCDIFF, CSF TP #### [address] Cell Count Differential,CSFo n 12-09-2022 Appearance, CSF Clear Normal Clear The Count Includes [facility] Comment on above: Order Comment: Tube Number for CSF Cell Count #1: 4 Performed By: #### C SF GLU, CSFCCDIFF, CSF TP #### [place] [address] [place] Color, CSF Colorless Normal Colorless The Count Includes [facility] Comment on above: Order Comment: Tube Number for CSF Cell Count #1: 4 Performed By: #### C SF GLU, CSFCCDIFF, CSF TP #### [address] CSF Supernatant Color Colorless Normal Colorless The Count Includes [facility] Comment on above: Order Comment: Tube Number for CSF Cell Count #1: 4 Performed By: #### C SF GLU, CSFCCDIFF, CSF TP #### [address] CSF Volume, Total 11.9 mL Normal The Count Includes [facility] Comment on above: Order Comment: Tube Number for CSF Cell Count #1: 4 Performed By: #### C SF GLU, CSFCCDIFF, CSF TP #### [address] Eosinophil, CSF 0 % Normal 0-0 The Count Includes [facility] Comment on above: Order Comment: Tube Number for CSF Cell Count #1: 4 Performed By: #### C SF GLU, CSFCCDIFF, CSF TP #### [place] [address] [place] Lymphocytes, CSF 97 % High 40-80 The Count Includes [facility] Comment on above: Order Comment: Tube Number for CSF Cell Count #1: 4 Performed By: #### C SF GLU, CSFCCDIFF, CSF TP #### [place] [address] [place] Monocytes, CSF 3 % Low 15-45 The Count Includes [facility] Comment on above: Order Comment: Tube Number for CSF Cell Count #1: 4 Performed By: #### C SF GLU, CSFCCDIFF, CSF TP #### [place] [address] [place] Neutrophils, CSF 0 % Normal 0-6 The Count Includes [facility] Comment on above: Order Comment: Tube Number for CSF Cell Count #1: 4 Performed By: #### C SF GLU, CSFCCDIFF, CSF TP #### [place] [address] [place] RBC, CSF 0 /uL Normal The Count Includes [facility] Comment on above: Order Comment: Tube Number for CSF Cell Count #1: 4 Result Comment: The reference interval and other method performance specifications have not been established for this body fluid. The test result must be integrated into the clinical context for interpretation. Performed By: #### C SF GLU, CSFCCDIFF, CSF TP #### [address] TNC, CSF 10 /uL High 0-5 The Count Includes [facility] Comment on above: Order Comment: Tube Number for CSF Cell Count #1: 4 Result Comment: Crit ical value result called at 211 on 12/09/22 Performed By: #### C SF GLU, CSFCCDIFF, CSF TP #### [address] Total Count, CSF 100 Normal The Count Includes [facility] Comment on above: Order Comment: Tube Number for CSF Cell Count #1: 4 Performed By: #### C SF GLU, CSFCCDIFF, CSF TP #### [address] Tube Number Tested, CSF Tube Number: 4 Normal The Count Includes [facility] Comment on above: Order Comment: Tube Number for CSF Cell Count #1: 4 Result Comment: PERF ORMED BY: [place] [address] PATHOLOGIST GARNISHMENT SPECIALIST ANU RICK M.D. Performed By: #### C SF GLU, CSFCCDIFF, CSF TP #### [address] Cell Count Differential,CSF #2on 12-09-2022 Appearance, CSF Clear Normal Clear The Count Includes [facility] Comment on above: Performed By: #### C SF GLU, CSFCCDIFF, CSF TP #### [address] Color, CSF Colorless Normal Colorless The Count Includes [facility] Comment on above: Performed By: #### C SF GLU, CSFCCDIFF, CSF TP #### [address] CSF Supernatant Color Colorless Normal Colorless The Count Includes [facility] Comment on above: Performed By: #### C SF GLU, CSFCCDIFF, CSF TP #### [address] CSF Volume, Total 11.9 mL Normal The Count Includes [facility] Comment on above: Performed By: #### C SF GLU, CSFCCDIFF, CSF TP #### [address] Eosinophil, CSF 0 % Normal 0-0 The Count Includes [facility] Comment on above: Performed By: #### C SF GLU, CSFCCDIFF, CSF TP #### [address] Lymphocytes, CSF 95 % High 40-80 The Count Includes [facility] Comment on above: Performed By: #### C SF GLU, CSFCCDIFF, CSF TP #### [address] Monocytes, CSF 5 % Low 15-45 The Count Includes [facility] Comment on above: Performed By: #### C SF GLU, CSFCCDIFF, CSF TP #### [address] Neutrophils, CSF 0 % Normal 0-6 The Count Includes [facility] Comment on above: Performed By: #### C SF GLU, CSFCCDIFF, CSF TP #### [address] RBC, CSF 0 /uL Normal The Count Includes [facility] Comment on above: Result Comment: The reference interval and other method performance specifications have not been established for this body fluid. The test result must be integrated into the clinical context for interpretation. Performed By: #### C SF GLU, CSFCCDIFF, CSF TP #### [address] TNC, CSF 12 /uL Off scale high 0-5 The Count Includes [facility] Comment on above: Result Comment: Crit ical value result called at 2117 on 12/09/22 Performed By: #### C SF GLU, CSFCCDIFF, CSF TP #### [address] Total Count, CSF 100 Normal The Count Includes [facility] Comment on above: Performed By: #### C SF GLU, CSFCCDIFF, CSF TP #### [facility] [address] Tube Number Tested, CSF Tube Number: 2 Normal The Count Includes [facility] Comment on above: Result Comment: PERF ORMED BY: [address] [place] [address] PATHOLOGIST GARNISHMENT SPECIALIST ANU RICK M.D. Performed By: #### C SF GLU, CSFCCDIFF, CSF TP #### [facility] [address] Cerebrospinal fluid eosinoph il percentageOrdered By: Dario Garcia on 12-09-2022 Eosinophils/100 WBC (CSF) 0 % 0-0 [facility] Cerebrospinal fluid lymphocy te percentageOrdered By: Dario Garcia on 12-09-2022 Lymphocytes/Leukocytes Manual cnt (CSF) [Pure # fraction] 97 % 40-80 [facility] Cerebrospinal fluid monocyte percentageOrdered By: Dario Garcia on 12-09-2022 Monocytes/100 WBC (CSF) 3 % 15-45 [facility] Cerebrospinal fluid neutroph il percentageOrdered By: Dario Garcia on 12-09-2022 Neutrophils/100 WBC (CSF) 0 % 0-6 [facility] Cerebrospinal fluid post-shannan trifugation appearance determinationOrdered By: Dario Garcia on 12-09-2022 Appearance (Spun CSF) Colorless Colorless [facility] Cerebrospinal fluid sample t ube volume measurementOrdered By: Dario Garcia on 12-09-2022 Specimen volume (CSF) 11.9 mL [facility] Color CSFOrdered By: Dario Garcia on 12-09-2022 Color (CSF) Colorless Colorless [facility] Glucose [Mass/volume] in Cer ebral spinal fluidOrdered By: Dario Garcia on 12-09-2022 Glucose (CSF) [Mass/Vol] 64 mg/dL 40-70 [facility] Glucose, CSF #2on 12-09-2022 Glucose, CSF #2 64 mg/dL Normal 40-70 The Count Includes [facility] Comment on above: Performed By: #### C SF GLU, CSFCCDIFF, CSF TP #### [address] Glucose, Spinal Fluidon 11-21 Glucose, Spinal Fluid 64 mg/dL Normal 40-70 The Count Includes [facility] Comment on above: Order Comment: Tube Number for CSF Cell Count #1: 4 Performed By: #### C SF GLU, CSFCCDIFF, CSF TP #### [address] Gram Stainon 12-09-2022 Microscopic observation Gram stain Nom (Unsp spec) Gram Stain Result No White Blood Cells Seen No Bacteria Seen PERFORMED BY: [place] [address] PATHOLOGIST GARNISHMENT SPECIALIST ANU RICK M.D. Normal The Count Includes [facility] Comment on above: Performed By: #### G S, AERC #### [address] Gram stain for investigation of transfusion reactionOrdered By: Dario Garcia on 12-09-2022 Microscopic observation Gram stain Nom (Unsp spec) [facility] IGG Synthesis Rate,CSFon Albumin [Mass/Vol] 3.8 g/dL Low 4.0-5.0 The Count Includes [facility] Comment on above: Order Comment: Tube Number for CSF Cell Count #1: 4 Result Comment: Pl ease note reference interval change Performed By: #### C SF GLU, CSFCCDIFF, CSF TP #### [address] Albumin, CSF 7 mg/dL Normal 7-29 The Count Includes [facility] Comment on above: Order Comment: Tube Number for CSF Cell Count #1: 4 Performed By: #### C SF GLU, CSFCCDIFF, CSF TP #### [address] IgG Synthesis Rate, CSF/Ser 11.7 High -9.9 TO +3.3 The Count Includes [facility] Comment on above: Order Comment: Tube Number for CSF Cell Count #1: 4 Result Comment: Perf ormed at: CB - [facility] [address], [place], [place] [id number] Breaker Up Machine Operator: Mckay Cifuentes PhD, Phone: [phone] Performed By: #### C SF GLU, CSFCCDIFF, CSF TP #### [place] [address] [place] IgG, Quant, CSF 3.6 mg/dL Normal 0.0-6.7 The Count Includes [facility] Comment on above: Order Comment: Tube Number for CSF Cell Count #1: 4 Performed By: #### C SF GLU, CSFCCDIFF, CSF TP #### [place] [address] [place] IgG, Serum 767 mg/dL Normal 586-1602 The Count Includes [facility] Comment on above: Order Comment: Tube Number for CSF Cell Count #1: 4 Performed By: #### C SF GLU, CSFCCDIFF, CSF TP #### [place] [address] [place] Immunoglob G Indexon 023 CSF IgG Index 2.5 High 0.0-0.7 The Count Includes [facility] Comment on above: Order Comment: Tube Number for CSF Cell Count #1: 4 Performed By: #### C SF GLU, CSFCCDIFF, CSF TP #### [address] IgG/Alb Ratio,CSF 0.51 High 0.00-0.25 The Count Includes [facility] Comment on above: Order Comment: Tube Number for CSF Cell Count #1: 4 Performed By: #### C SF GLU, CSFCCDIFF, CSF TP #### [address] Lyme Disease DNA (PCR)on Lyme Disease DNA (PCR) Negative Normal Negative Th e Count Includes [facility] Comment on above: Order Comment: Tube Number for CSF Cell Count #1: 4 Result Comment: No B . burgdorferi DNA Detected. This test was developed and its performance characteristics determined by [facility]. It has not been cleared or approved by the Food and Drug Administration. The FDA has determined that such clearance or approval is not necessary. Performed at: BN - [address] [id number] Breaker Up Machine Operator: Bon Solis MD, Phone: [phone] Performed By: #### C SF GLU, CSFCCDIFF, CSF TP #### [address] MYELIN BASIC PROTEIN, CSFon 12-09-2022 MYELIN BASIC PROTEIN, CSF 1.7 ng/mL Normal 0.0-2.9 The Count Includes [facility] Comment on above: Order Comment: Tube Number for CSF Cell Count #1: 4 Result Comment: Resu lts of this test are labeled for research purposes only by the assay's process area supervisor. The performance characteristics of this assay have not been established by the process area supervisor. The result should not be used for treatment or for diagnostic purposes without confirmation of the diagnosis by another medically established diagnostic product or procedure. The performance characteristics were determined by [employer]. Performed at: [facility] [address] [id number] Breaker Up Machine Operator: Bon Solis MD, Phone: [phone] PERFORMED BY: [place] [address] PATHOLOGIST GARNISHMENT SPECIALIST ANU RICK M.D. Performed By: #### C SF GLU, CSFCCDIFF, CSF TP #### [address] Manual cerebrospinal fluid e rythrocytes count (number/volume)Ordered By: Dario Garcia on 12-09-2022 RBC Manual cnt (CSF) [#/Vol] 0 /uL [facility] Comment on above: The reference interv al and other method performance specifications have not been established for this body fluid. The test result must be integrated into the clinical context for interpretation. No Panel InformationOrdered By: Dario Garcia on 12-09-2022 CSF Appearance Clear Clear [facility] CSF Total Cells Counted 100 [facility] CSF Tube Number Tube number: 4 [facility] Nucleated cells [#/volume] i n Cerebral spinal fluid by Manual countOrdered By: Dario Garcia on 12-09-2022 Nucleated cells Manual cnt (CSF) [#/Vol] 0.01 10*3/uL 0-5 [facility] Comment on above: Critical valueresult calledat 7 on 12/09/22 Protein [Mass/volume] in Cer ebral spinal fluidOrdered By: Dario Garcia on 12-09-2022 Protein (CSF) [Mass/Vol] 21 mg/dL 15-45 [facility] Total Protein, CSF #2on 07- 0-2022 Total Protein, CSF #2 21 mg/dL Normal 15-45 The Count Includes [facility] Comment on above: Result Comment: PERF ORMED BY: [place] [phone] PATHOLOGIST GARNISHMENT SPECIALIST ANU RICK M.D. Performed By: #### C SF GLU, CSFCCDIFF, CSF TP #### [address] Total Protein, Spinal Fluido n 12-09-2022 Total Protein, Spinal Fluid 21 mg/dL Normal 15-45 The Count Includes [facility] Comment on above: Order Comment: Tube Number for CSF Cell Count #1: 4 Result Comment: PERF ORMED BY: [place] [address] PATHOLOGIST GARNISHMENT SPECIALIST ANU RICK M.D. Performed By: #### C SF GLU, CSFCCDIFF, CSF TP #### [address] Blood mercury measurement (m ass/volume)Ordered By: Dario Garcia on 10-20-2022 Mercury (Bld) [Mass/Vol] <1.0 ug/L 0.0-14.9 [facility] Comment on above: This test was devlasto ped and its performance characteristicsdetermined by [facility]. It has not been cleared orapproved by the Food and Drug Administration. Environmental Exposure: <15.0 Occupational Exposure: RISHABH - Inorganic Mercury: 15.0 Detection Limit = 1.0Performed at: - [facility] [address] [id number] Director: Bon Solis MD, Phone: [phone] Borrelia burgdorferi Ab [Int erpretation] in SerumOrdered By: Dario Garcia on 10-20-2022 B. burgdorferi Ab (S) [Interp] N/A [facility] Borrelia burgdorferi IgG Ab [Presence] in Serum or Plasma by ImmunoassayOrdered By: Dario Garcia on 10-20-2022 B. burgdorferi IgG IA Ql N/A [facility] Borrelia burgdorferi IgG+IgM Ab [Presence] in Serum by ImmunoassayOrdered By: Dario Garcia on 10-20-2022 B. burgdorferi IgG+IgM IA Ql (S) Negative Negative [facility] Comment on above: Lyme antibodies not detected. Reflex testing is notindicated.No laboratory evidence of infection with B. burgdorferi(Lyme disease). Negative results may occur in patientsrecently infected (less than or equal to 14 days) with B.burgdorferi. If recent infection is suspected, repeattesting on a new sample collected in 7 to 14 days isrecommended.Performed at: [facility] [place] [id number] Director: Mckay Cifuentes PhD, Phone: [phone] Borrelia burgdorferi IgM Ab [Presence] in Serum or Plasma by ImmunoassayOrdered By: Dario Garcia on 10-20-2022 B. burgdorferi IgM IA Ql N/A [facility] Creatine Kinaseon 10-20-2022 CK [Catalytic activity/Vol] 88 U/L Normal The Count Includes [facility] Comment on above: Result Comment: PERF ORMED BY: [place] [address] PATHOLOGIST GARNISHMENT SPECIALIST ANU RICK M.D. Performed By: #### G S, AERC #### [address] Creatine kinase [Enzymatic a ctivity/volume] in Serum or PlasmaOrdered By: Dario Garcia on 10-20-2022 CK [Catalytic activity/Vol] 88 U/L [facility] Folate [Mass/volume] in Seru m or PlasmaOrdered By: Dario Garcia on 10-20-2022 Folate [Mass/Vol] 6.0 ng/mL >5.9 [facility] Comment on above: Folate reference ran ge: >5.9 ng/mlThe WHO technical consultation on folate and vitamin [id number] has determined that folate concentrations lessthan 4 ng/ml are considered deficient. Heavy Metals Profile I, Bldo n 10-20-2022 Arsenic 1 Normal 0-9 The Count Includes [facility] Comment on above: Result Comment: This test was developed and its performance characteristics determined by [employer]. It has not been cleared or approved by the Food and Drug Administration. Detection Limit = 1 Performed By: #### G S, AERC #### [facility] [address] Lead Blood <1.0 Normal 0.0-3.4 The Count Includes [facility] Comment on above: Result Comment: Test ing performed by Inductively coupled plasma/Mass Spectrometry. This test was developed and its performance characteristics determined by [employer]. It has not been cleared or approved by the Food and Drug Administration. Environmental Exposure: WHO Recommendation <5.0 Occupational Exposure: OSHA Lead Std 40.0 RISHABH 30.0 Detection Limit = 1.0 Performed By: #### G S, AERC #### [facility] [address] [place] [id number] [facility] Mercury, Blood <1.0 Normal 0.0-14.9 The Count Includes [facility] Comment on above: Result Comment: This test was developed and its performance characteristics determined by [employer]. It has not been cleared or approved by the Food and Drug Administration. Environmental Exposure: <15.0 Occupational Exposure: RISHABH - Inorganic Mercury: 15.0 Detection Limit = 1.0 Performed at: [address] [id number] Breaker Up Machine Operator: Bon Solis MD, Phone: [phone] Performed By: #### G S, AERC #### [facility] [address] [place] [id number] [facility] Lyme, Total Ab with Reflexon 10-20-2022 Lyme Total Antibody Negative Normal Negative The Count Includes [facility] Comment on above: Result Comment: Lyme antibodies not detected. Reflex testing is not indicated. No laboratory evidence of infection with B. burgdorferi (Lyme disease). Negative results may occur in patients recently infected (less than or equal to 14 days) with B. burgdorferi. If recent infection is suspected, repeat testing on a new sample collected in 7 to 14 days is recommended. Performed at: [facility] [address], [place], [place] [id number] Breaker Up Machine Operator: Mckay Cifuentes PhD, Phone: [phone] PERFORMED BY: [place] [address] PATHOLOGIST GARNISHMENT SPECIALIST ANU RICK M.D. Performed By: #### G S, AERC #### [address] Monocyte %Ordered By: Dario Garcia on 10-20-2022 Monocyte % 1 ug/L 0-9 [facility] Comment on above: This test was develo ped and its performance characteristicsdetermined by [employer]. It has not been cleared orapproved by the Food and Drug Administration. Detection Limit = 1 No Panel InformationOrdered By: Dario Garcia on 10-20-2022 Whole Blood Lead <1.0 ug/dL 0.0-3.4 [facility] Comment on above: Testing performed by Inductively coupled plasma/MassSpectrometry.This test was developed and its performance characteristicsdetermined by [employer]. It has not been cleared orapproved by the Food and Drug Administration. Environmental Exposure: WHO Recommendation <5.0 Occupational Exposure: OSHA Lead Std 40.0 RISHABH 30.0 Detection Limit = 1.0 Vit. B12/Folate Profileon Cobalamin (Vitamin B12) [Mass/Vol] 260 pg/mL Normal 180-914 The Count Includes [facility] Comment on above: Performed By: #### G S, AERC #### [address] Folate 6.0 ng/mL Normal >5.9 The Count Includes [facility] Comment on above: Result Comment: Sandra te reference range: >5.9 ng/ml The WHO technical consultation on folate and vitamin b12 deficiencies has determined that folate concentrations less than 4 ng/ml are considered deficient. Performed By: #### G S, AERC #### [address] Vitamin B12 ser/plasOrdered By: Dario Garcia on 10-20-2022 Cobalamin (Vitamin B12) [Mass/Vol] 260 pg/mL 180-914 [facility] Vitamin D 25 Hydroxy Totalon 10-20-2022 Vitamin D 25 Hydroxy Total 20.2 ng/mL Low 30-100 The Count Includes [facility] Comment on above: Result Comment: KEN MIN D STATUS 25(OH)VITAMIN D RANGE (ng/mL) Deficient <20 Insufficient 20 to <30 Sufficient 30 to 100 Reference: Nicole Lee, Lalito VILLAFUERTE, et al. Evaluation,treatment, and prevention of vitamin D deficiency; an Endocrine Society clinical practice guideline. JCEM. 2010; 96(7):1911-. PERFORMED BY: [place] [address] PATHOLOGIST GARNISHMENT SPECIALIST ANU RICK M.D. Performed By: #### G S, AERC #### [address] Vitamin D+Metabolites [Mass/ volume] in Serum or PlasmaOrdered By: Dario Garcia on 10-20-2022 Vitamin D+Metabolites [Mass/Vol] 20.2 ng/mL 30-100 [facility] Comment on above: VITAMIN D STATUS 25( [place])VITAMIN D RANGE (ng/mL) Deficient <20 Insufficient 20 to <30Sufficient 30 to 100Reference: Nicole Lee, Lalito VILLAFUERTE, et al. Evaluation,treatment, and prevention of vitamin D deficiency; an Endocrine Society clinical practice guideline. JCEM. 2010; 96(7):191-. MRI CSPINE WO W CONon 2022 MRI CSPINE WO W CON EXAM: MRI of the cervical spine without and with IV contrast utilizing 15 mL of IV gadolinium contrast. REASON FOR EXAM: Anesthesia of skin COMPARISON: CT scan dated 10/05/2022 FINDINGS: No cervical spine fractures, acute malalignment or acute abnormal marrow signal. No spinal canal mass, hematoma or fluid collection. No abnormal cord signal. Focal signal abnormality in the cord at the C3-C4 level somewhat dorsally within the cord extending overlying from approximately 1.5 cm. No expansion of the cord at this level or associated abnormal enhancement. Preserved intervertebral disc heights. No substantial posterior disc protrusions. Multilevel spinal canal stenoses on a congenital basis, worst at the C4-C5 level where the stenosis is moderate. Mild right C2-C3, C3-C4, C4-C5 neural foraminal stenoses on a congenital basis. Remainder unremarkable. IMPRESSION: 1. Focal signal abnormality in the cord at the C3-C4 level without associated enhancement. This may represent changes of demyelinating disease. Neoplasm is a less likely consideration. Trauma, infarct or infection are unlikely. Correlate clinically and consider follow-up MRI. 2. 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 Electronically authenticated by: JOSEFINA HORVATH Date: 2022-10-17 07:16 Normal [facility] MRI BRAIN WO W CONon 023 MRI BRAIN WO W CON EXAMINATION: MRI BRA IN WO W CON HISTORY: Paresthesia acute weakness, numbness, tingling. COMPARISON: Head CT 10/05/2022 TECHNIQUE: Multiplanar, multisequence MRI images of the brain were obtained without and with contrast. FINDINGS: No restricted diffusion. No foci of abnormal signal or pathologic contrast enhancement. Ventricles and sulci normal in size. No hydrocephalus. There is no midline shift, mass effect, or abnormal extraaxial fluid collections. Pituitary gland is not abnormally enlarged. There is no evidence for a Chiari I malformation. The orbital apices are clear. The flow voids of the [place] are visualized, implying that the vessels are patent. IMPRESSION: Negative for acute infarct or acute intracranial process. No focal lesions in the brain. No evidence for demyelinating process. Electronically authenticated by: KATALINA BORJA Date: 2022-10-12 14:08 Normal [facility] Activated partial thrombopla stin time (aPTT) in platelet poor plasma by coagulation aOrdered By: Tasneem Garcia on 10-09-2022 aPTT Coag (PPP) [Time] 31.7 s 25.1-36.5 [facility] Basic Metabolic Panelon 09-21 Anion gap [Moles/Vol] 7.0 mmol/L Normal 6.0-15.0 The Count Includes [facility] Comment on above: Performed By: #### C SF GLU, CSFCCDIFF, CSF TP #### [address] Calcium [Mass/Vol] 8.9 mg/dL Normal 8.6-10.3 The Count Includes [facility] Comment on above: Performed By: #### C SF GLU, CSFCCDIFF, CSF TP #### [facility] [address] [place] [address] [place] Chloride [Moles/Vol] 107 mmol/L Normal 98-107 The Count Includes [facility] Comment on above: Performed By: #### C SF GLU, CSFCCDIFF, CSF TP #### [facility] [address] CO2 [Moles/Vol] 27.0 mmol/L Normal 21.0-31.0 The Count Includes [facility] Comment on above: Performed By: #### C SF GLU, CSFCCDIFF, CSF TP #### [facility] [address] Creatinine [Mass/Vol] 0.69 mg/dL Normal 0.60-1.20 The Count Includes [facility] Comment on above: Performed By: #### C SF GLU, CSFCCDIFF, CSF TP #### [facility] [address] [place] [address] [place] Creatinine Clr Calc Pharmacy 126.27 Normal The Count Includes [facility] Comment on above: Performed By: #### C SF GLU, CSFCCDIFF, CSF TP #### [facility] [address] [place] [address] [place] GFR/1.73 sq M.predicted MDRD (S/P/Bld) [Vol rate/Area] mL/min/{1.73_m2} Normal The Count Includes [facility] Comment on above: Performed By: #### C SF GLU, CSFCCDIFF, CSF TP #### [facility] [address] [place] [address] [place] Glucose [Mass/Vol] 110 mg/dL High 70-100 The Count Includes [facility] Comment on above: Result Comment: [place] Glucose Reference Range is dependent on time and content of last meal. Glucose of more than 200 mg/dL in a nonstressed, ambulatory subject supports the diagnosis of Diabetes Mellitus. ADA recommended reference range Performed By: #### C SF GLU, CSFCCDIFF, CSF TP #### [facility] [address] Potassium [Moles/Vol] 4.0 mmol/L Normal 3.5-5.1 The Count Includes [facility] Comment on above: Performed By: #### C SF GLU, CSFCCDIFF, CSF TP #### [facility] [address] Sodium [Moles/Vol] 137 mmol/L Normal 136-145 The Count Includes [facility] Comment on above: Performed By: #### C SF GLU, CSFCCDIFF, CSF TP #### [facility] [address] Urea nitrogen [Mass/Vol] 11 mg/dL Normal 7-25 The Count Includes [facility] Comment on above: Performed By: #### C SF GLU, CSFCCDIFF, CSF TP #### [address] Basophils Auto (Bld) [#/Vol] Ordered By: Tasneem Garcia on 10-09-2022 Basophils (Bld) [#/Vol] 0.1 10*3/uL 0.0-0.2 [facility] Basophils/100 WBC Auto (Bld) Ordered By: Tasneem Garcia on 10-09-2022 Basophils/100 WBC (Bld) 0.7 % . [facility] Bilirubin Test strip Ql (U)O rdered By: Tasneem Garcia on 10-09-2022 Bilirubin Ql (U) Negative Negative [facility] C reactive protein [Mass/vol ume] in Serum or PlasmaOrdered By: Tasneem Garcia on 10-09-2022 CRP [Mass/Vol] < 0.5 mg/dL 0.0-0.5 [facility] C-Reactive Proteinon 023 CRP [Mass/Vol] mg/L Normal 0.0-0.5 The Count Includes [facility] Comment on above: Result Comment: PERF ORMED BY: [address] [place] [address] PATHOLOGIST GARNISHMENT SPECIALIST ANU RICK M.D. Performed By: #### C SF GLU, CSFCCDIFF, CSF TP #### [facility] [address] Calcium [Mass/volume] in Ser um or PlasmaOrdered By: Tasneem Garcia on 10-09-2022 Calcium [Mass/Vol] 8.9 mg/dL 8.6-10.3 [facility] Carbon dioxide, total [Moles /volume] in Serum or PlasmaOrdered By: Tasneem Garcia on 10-09-2022 CO2 [Moles/Vol] 27.0 mmol/L 21.0-31.0 [facility] Chloride [Moles/volume] in S sagrario or PlasmaOrdered By: Tasneem Garcia on 10-09-2022 Chloride [Moles/Vol] 107 mmol/L 98-107 [facility] Color Auto (U)Ordered By: Titus Garcia on 10-09-2022 Color (U) Yellow Yellow [facility] Complete Blood Count Auto Di ffon 10-09-2022 Basophils (Bld) [#/Vol] 0.1 10*3/uL Normal 0.0-0.2 The Count Includes [facility] Comment on above: Performed By: #### E SR, CBC, PT, CRP, PTT, BMP #### [place] [address] [place] Basophils/100 WBC (Bld) 0.7 % Normal . The Count Includes [facility] Comment on above: Performed By: #### E SR, CBC, PT, CRP, PTT, BMP #### [facility] [address] [place] [address] [place] Eosinophils (Bld) [#/Vol] 0.4 10*3/uL Normal 0.0-0.45 The Count Includes [facility] Comment on above: Performed By: #### E SR, CBC, PT, CRP, PTT, BMP #### [facility] [address] [place] [address] [place] Eosinophils/100 WBC (Bld) 4.6 % Normal . The Count Includes [facility] Comment on above: Performed By: #### E SR, CBC, PT, CRP, PTT, BMP #### [facility] [address] [place] [address] [place] Erythrocyte distribution width (RBC) [Ratio] 14.5 % Normal 11.9-15.3 The Count Includes [facility] Comment on above: Performed By: #### E SR, CBC, PT, CRP, PTT, BMP #### [address] Hematocrit (Bld) [Volume fraction] 40.7 % Normal 34.0-46.4 The Count Includes [facility] Comment on above: Performed By: #### E SR, CBC, PT, CRP, PTT, BMP #### [address] Hemoglobin (Bld) [Mass/Vol] 13.5 g/dL Normal 11.8-15.4 The Count Includes [facility] Comment on above: Performed By: #### E SR, CBC, PT, CRP, PTT, BMP #### [address] Lymphocytes (Bld) [#/Vol] 3.2 10*3/uL Normal 1.00-4.8 The Count Includes [facility] Comment on above: Performed By: #### E SR, CBC, PT, CRP, PTT, BMP #### [address] Lymphocytes/100 WBC (Bld) 33.1 % Normal . The Count Includes [facility] Comment on above: Performed By: #### E SR, CBC, PT, CRP, PTT, BMP #### [address] MCH (RBC) [Entitic mass] 29.8 pg Normal 24.7-34.3 The Count Includes [facility] Comment on above: Performed By: #### E SR, CBC, PT, CRP, PTT, BMP #### [address] MCV (RBC) [Entitic vol] 89.9 fL Normal 80-100 The Count Includes [facility] Comment on above: Performed By: #### E SR, CBC, PT, CRP, PTT, BMP #### [address] Mean Corpuscular HGB Conc 33.2 g/dL Normal 32.0-35.0 The Count Includes [facility] Comment on above: Performed By: #### E SR, CBC, PT, CRP, PTT, BMP #### [address] Monocytes (Bld) [#/Vol] 0.5 10*3/uL Normal 0.0-0.8 The Count Includes [facility] Comment on above: Performed By: #### E SR, CBC, PT, CRP, PTT, BMP #### [address] Monocytes/100 WBC (Bld) 17.76 % Normal 0.00-20.00 The Count Includes [facility] Comment on above: Performed By: #### E SR, CBC, PT, CRP, PTT, BMP #### [address] Monocytes/100 WBC (Bld) 5.2 % Normal . The Count Includes [facility] Comment on above: Performed By: #### E SR, CBC, PT, CRP, PTT, BMP #### [address] Neutrophils (Bld) [#/Vol] 5.4 10*3/uL Normal 1.8-7.7 The Count Includes [facility] Comment on above: Performed By: #### E SR, CBC, PT, CRP, PTT, BMP #### [address] Neutrophils/100 WBC (Bld) 56.4 % Normal . The Count Includes [facility] Comment on above: Performed By: #### E SR, CBC, PT, CRP, PTT, BMP #### [address] NRBC% 0.1 /100{WBC} Normal 0-0.5 The Count Includes [facility] Comment on above: Performed By: #### E SR, CBC, PT, CRP, PTT, BMP #### [address] Platelet mean volume (Bld) [Entitic vol] 7.8 fL Normal 6.3-10.7 The Count Includes [facility] Comment on above: Performed By: #### E SR, CBC, PT, CRP, PTT, BMP #### [facility] [address] Platelets (Bld) [#/Vol] 221 10*3/uL Normal 150-450 The Count Includes [facility] Comment on above: Performed By: #### E SR, CBC, PT, CRP, PTT, BMP #### [facility] [address] RBC (Bld) [#/Vol] 4.53 10*6/uL Normal 3.60-5.00 The Count Includes [facility] Comment on above: Performed By: #### E SR, CBC, PT, CRP, PTT, BMP #### [facility] [address] WBC (Bld) [#/Vol] 9.6 10*3/uL Normal 3.8-11.6 The Count Includes [facility] Comment on above: Performed By: #### E SR, CBC, PT, CRP, PTT, BMP #### [facility] [address] Creatinine [Mass/volume] in Serum or PlasmaOrdered By: Tasneem Garcia on 10-09-2022 Creatinine [Mass/Vol] 0.69 mg/dL 0.60-1.20 [facility] ECG 12 lead ECGon 10-09-2022 ECG 12 lead ECG [facility] Main [place] [address] [place] [address] Electrocardiograph Report Signed Patient: Ladi Bernstein MR#: [id number] : 2000 Acct:[id number] Age/Sex: 22 / F ADM Date: 10/09/22 Loc: ER Room: Type: [facility] ER Attending Dr: Ordering Provider: Tasneem Garcia APRN Date of Service: 10/09/22 ECG/ECG 12 lead ECG: Neuro Symptoms/Deficit Copies to: Test Reason : Blood Pressure : 098/053 mmHG Vent. Rate : 065 BPM Atrial Rate : 065 BPM P-R Int : 156 ms QRS Dur : 076 ms QT Int : 386 ms P-R-T Axes : 035 098 026 degrees QTc Int : 401 ms Normal sinus rhythm Rightward axis Borderline ECG When compared with ECG of 27-SEP-2020 10:02, Vent. rate has decreased BY 32 BPM Confirmed by PIA DE LEON MD ([id number]) on 10/09/2022 8:31:50 PM Referred By: Electronically Signed By:PIA DE LEON MD Transcribed By: MUS Signed By Pia De Leon MD 09/21 Normal The Count Includes [facility] Eosinophils Auto (Bld) [#/Vo l]Ordered By: Tasneem Garcia on 10-09-2022 Eosinophils (Bld) [#/Vol] 0.4 10*3/uL 0.0-0.45 [facility] Eosinophils/100 WBC Auto (Bl d)Ordered By: Tasneem Garcia on 10-09-2022 Eosinophils/100 WBC (Bld) 4.6 % . [facility] Erythrocyte Sedimentation Ra jules 10-09-2022 ESR (Bld) [Velocity] 13 mm/h Normal 0- The Count Includes [facility] Comment on above: Result Comment: PERF ORMED BY: [place] [address] PATHOLOGIST GARNISHMENT SPECIALIST ANU RICK M.D. Performed By: #### E SR, CBC, PT, CRP, PTT, BMP #### [address] Erythrocyte distribution wid th Auto (RBC) [Ratio]Ordered By: Tasneem Garcia on 10-09-2022 Erythrocyte distribution width (RBC) [Ratio] 14.5 % 11.9-15.3 [facility] Erythrocyte sedimentation ra te by Photometric methodOrdered By: Tasneem Garcia on 10-09-2022 ESR Photometric method (Bld) [Velocity] 13 mm/hr 0-19 [facility] Glucose [Mass/volume] in Ser um or PlasmaOrdered By: Tasneem Garcia on 10-09-2022 Glucose [Mass/Vol] 110 mg/dL 70-100 [facility] Comment on above: ADA recommended refe rence rangeRandom Glucose Reference Range is dependent on time and content of last meal. Glucose of more than 200 mg/dL in a nonstressed, ambulatory subject supports the diagnosis of Diabetes Mellitus. HCG ( test) IA.rapi d Ql (U)Ordered By: Tasneem Garcia on 10-09-2022 HCG ( test) Ql (U) Negative [facility] HCG,Urineon 10-09-2022 Beta HCG ( test) Ql (U) Negative Normal The Count Includes [facility] Comment on above: Order Comment: Tube Number for CSF Cell Count #1: 4 Result Comment: PERF ORMED BY: [place] [address] PATHOLOGIST GARNISHMENT SPECIALIST ANU RICK M.D. Performed By: #### C SF GLU, CSFCCDIFF, CSF TP #### [address] Hematocrit Auto (Bld) [Volum e fraction]Ordered By: Tasneem Garcia on 10-09-2022 Hematocrit (Bld) [Volume fraction] 40.7 % 34.0-46.4 [facility] Hemoglobin [Mass/volume] in BloodOrdered By: Tasneem Garcia on 10-09-2022 Hemoglobin (Bld) [Mass/Vol] 13.5 g/dL 11.8-15.4 [facility] Ketones Auto test strip (U) [Mass/Vol]Ordered By: Tasneem Garcia on 10-09-2022 Ketones (U) [Mass/Vol] Negative Negative [facility] Laboratory - CoagulationOrde red By: Tasneem Garcia on 10-09-2022 PT Coag (PPP) [Time] 12.7 s 9.0-12.9 [facility] Leukocytes [#/volume] correc moni for nucleated erythrocytes in Blood by Automated counOrdered By: Tasneem Garcia on 10-09-2022 WBC corrected for nucl RBC Auto (Bld) [#/Vol] 9.6 10*3/uL 3.8-11.6 [facility] Lymphocytes Auto (Bld) [#/Vo l]Ordered By: Tasneem Garcia on 10-09-2022 Lymphocytes (Bld) [#/Vol] 3.2 10*3/uL 1.00-4.8 [facility] Lymphocytes/100 WBC Auto (Bl d)Ordered By: Tasneem Garcia on 10-09-2022 Lymphocytes/100 WBC (Bld) 33.1 % . [facility] MCH Auto (RBC) [Entitic mass ]Ordered By: Tasneem Garcia on 10-09-2022 MCH (RBC) [Entitic mass] 29.8 pg 24.7-34.3 [facility] MCHC Auto (RBC) [Mass/Vol]Or dered By: Tasneem Garcia on 10-09-2022 MCHC (RBC) [Mass/Vol] 33.2 g/dL 32.0-35.0 [facility] MCV Auto (RBC) [Entitic vol] Ordered By: Tasneem Garcia on 10-09-2022 MCV (RBC) [Entitic vol] 89.9 fL 80-100 [facility] Monocyte distribution width [Entitic volume] in Blood by AutomatedOrdered By: Tasneem Garcia on 10-09-2022 Monocyte distribution width Auto (Bld) [Entitic vol] 17.76 % 0.00-20.00 [facility] Monocytes Auto (Bld) [#/Vol] Ordered By: Tasneem Garcia on 10-09-2022 Monocytes (Bld) [#/Vol] 0.5 10*3/uL 0.0-0.8 [facility] Monocytes/100 WBC Auto (Bld) Ordered By: Tasneem Garcia on 10-09-2022 Monocytes/100 WBC (Bld) 5.2 % . [facility] Neutrophils Auto (Bld) [#/Vo l]Ordered By: Tasneem Garcia on 10-09-2022 Neutrophils (Bld) [#/Vol] 5.4 10*3/uL 1.8-7.7 [facility] Neutrophils/100 WBC Auto (Bl d)Ordered By: Tasneem Garcia on 10-09-2022 Neutrophils/100 WBC (Bld) 56.4 % . [facility] Nitrite Test strip Ql (U)Ord ered By: Tasneem Garcia on 10-09-2022 Nitrite Ql (U) Negative Negative [facility] No Panel InformationOrdered By: Tasneem Garcia on 10-09-2022 Estimated GFR (CKD-EPI) > 60.0 mL/Min [facility] Creatinine Clearance (Chem 126.27 [facility] Nucleated erythrocytes [Pres ence] in Blood by Automated countOrdered By: Tasneem Garcia on 10-09-2022 Nucleated RBC Auto Ql (Bld) 0.1 /100{WBC} 0-0.5 [facility] Partial Thromboplastin Timeo n 10-09-2022 aPTT Coag (Bld) [Time] 31.7 s Normal 25.1-36.5 Th e Count Includes [facility] Comment on above: Result Comment: PERF ORMED BY: [place] [address] PATHOLOGIST GARNISHMENT SPECIALIST ANU RICK M.D. Performed By: #### C SF GLU, CSFCCDIFF, CSF TP #### [address] Platelet mean volume Auto (B ld) [Entitic vol]Ordered By: Tasneem Garcia on 10-09-2022 Platelet mean volume (Bld) [Entitic vol] 7.8 fL 6.3-10.7 [facility] Platelet poor plasma interna tional normalized ratio (INR) by coagulation assay (relatOrdered By: Tasneem Garcia on 10-09-2022 INR Coag (PPP) [Relative time] 1.1 {INR} [facility] Comment on above: INR Therapeutic Rang e A) Pre- and Peroperative OAT started two weeks before surgery. NOT HIP SURGERY: 1.5 - 2.5 HIP SURGERY: 2 - 3B) Primary and secondary prevention of venous THROMBOSIS: 2 - 3C) Active venous thrombosis, pulmonary embolismand prevention of recurrent venous thrombosis: 2 - 3D) Prevention of arterial thromboembolismincluding patients with mechanical heart valves: 3 - 4.5 Platelets Auto (Bld) [#/Vol] Ordered By: Tasneem Garcia on 10-09-2022 Platelets (Bld) [#/Vol] 221 10*3/uL 150-450 [facility] Potassium [Moles/volume] in Serum or PlasmaOrdered By: Tasneem Garcia on 10-09-2022 Potassium [Moles/Vol] 4.0 mmol/L 3.5-5.1 [facility] Protein Auto test strip (U) [Mass/Vol]Ordered By: Tasneem Garcia on 10-09-2022 Protein (U) [Mass/Vol] Negative Negative [facility] Prothrombin Time INRon 10-09 INR Coag (PPP) [Relative time] 1.1 {INR} Normal The Count Includes [facility] Comment on above: Result Comment: INR Therapeutic Range A) Pre- and Peroperative OAT started two weeks before surgery. NOT HIP SURGERY: 1.5 - 2.5 HIP SURGERY: 2 - 3 B) Primary and secondary prevention of venous THROMBOSIS: 2 - 3 C) Active venous thrombosis, pulmonary embolism and prevention of recurrent venous thrombosis: 2 - 3 D) Prevention of arterial thromboembolism including patients with mechanical heart valves: 3 - 4.5 Performed By: #### C SF GLU, CSFCCDIFF, CSF TP #### [facility] [address] PT Coag (PPP) [Time] 12.7 s Normal 9.0-12.9 The Count Includes [facility] Comment on above: Performed By: #### C SF GLU, CSFCCDIFF, CSF TP #### [address] RBC Auto (Bld) [#/Vol]Ordere d By: Tasneem Garcia on 10-09-2022 RBC (Bld) [#/Vol] 4.53 10*6/uL 3.60-5.00 [facility] Serum or plasma anion gap de terminationOrdered By: Tasneem Garcia on 10-09-2022 Anion gap [Moles/Vol] 7.0 mmol/L 6.0-15.0 [facility] Sodium [Moles/volume] in Ser um or PlasmaOrdered By: Tasneem Garcia on 10-09-2022 Sodium [Moles/Vol] 137 mmol/L 136-145 [facility] Specific gravity Auto test s trip (U) [Rel density]Ordered By: Tasneem Garcia on 10-09-2022 Specific gravity (U) [Rel density] 1.013 1.001-1.030 [facility] Urea nitrogen [Mass/volume] in Serum or PlasmaOrdered By: Tasneem Garcia on 10-09-2022 Urea nitrogen [Mass/Vol] 11 mg/dL 12-14 [facility] Urinalysison 10-09-2022 Appearance (U) Clear Normal Clear The Count Includes [facility] Comment on above: Order Comment: Tube Number for CSF Cell Count #1: 4 Performed By: #### C SF GLU, CSFCCDIFF, CSF TP #### [facility] [address] Bilirubin,Urine Negative Normal Negative The Count Includes [facility] Comment on above: Order Comment: Tube Number for CSF Cell Count #1: 4 Performed By: #### C SF GLU, CSFCCDIFF, CSF TP #### [facility] [address] Color (U) Yellow Normal Yellow The Count Includes [facility] Comment on above: Order Comment: Tube Number for CSF Cell Count #1: 4 Performed By: #### C SF GLU, CSFCCDIFF, CSF TP #### [facility] [address] [place] [address] [place] Glucose Ql (U) Normal Normal Normal The Count Includes [facility] Comment on above: Order Comment: Tube Number for CSF Cell Count #1: 4 Performed By: #### C SF GLU, CSFCCDIFF, CSF TP #### [facility] [address] [place] [address] [place] Ketones Ql (U) Negative Normal Negative The Count Includes [facility] Comment on above: Order Comment: Tube Number for CSF Cell Count #1: 4 Performed By: #### C SF GLU, CSFCCDIFF, CSF TP #### [facility] [address] [place] [address] [place] Leukocyte esterase Test strip Ql (U) Negative Normal Negative The Count Includes [facility] Comment on above: Order Comment: Tube Number for CSF Cell Count #1: 4 Performed By: #### C SF GLU, CSFCCDIFF, CSF TP #### [facility] [address] [place] [address] [place] Nitrite,Urine Negative Normal Negative The Count Includes [facility] Comment on above: Order Comment: Tube Number for CSF Cell Count #1: 4 Performed By: #### C SF GLU, CSFCCDIFF, CSF TP #### [facility] [address] Occult Blood,Urine Negative Normal Negative The Count Includes [facility] Comment on above: Order Comment: Tube Number for CSF Cell Count #1: 4 Performed By: #### C SF GLU, CSFCCDIFF, CSF TP #### [address] pH (U) 7.5 [pH] Normal 5.0-9.0 The Count Includes [facility] Comment on above: Order Comment: Tube Number for CSF Cell Count #1: 4 Performed By: #### C SF GLU, CSFCCDIFF, CSF TP #### [address] Protein,Urine Negative Normal Negative The Count Includes [facility] Comment on above: Order Comment: Tube Number for CSF Cell Count #1: 4 Performed By: #### C SF GLU, CSFCCDIFF, CSF TP #### [address] Specificy [place],Urine 1.013 Normal 1.001-1.030 The Count Includes [facility] Comment on above: Order Comment: Tube Number for CSF Cell Count #1: 4 Performed By: #### C SF GLU, CSFCCDIFF, CSF TP #### [address] Urobilinogen,Urine Normal Normal Normal The Count Includes [facility] Comment on above: Order Comment: Tube Number for CSF Cell Count #1: 4 Performed By: #### C SF GLU, CSFCCDIFF, CSF TP #### [address] Urine clarity by refractomet ry automatedOrdered By: Tasneem Garcia on 10-09-2022 Clarity Refractometry automated (U) Clear Clear [facility] Urine glucose measurement by automated test strip (mass/volume)Ordered By: Tasneem Garcia on 10-09-2022 Glucose Auto test strip (U) [Mass/Vol] Normal mg/dL Normal [facility] Urine hemoglobin detection b y automated test stripOrdered By: Tasneem Garcia on 10-09-2022 Hemoglobin Auto test strip Ql (U) Negative Negative [facility] Urine leukocyte esterase det ection by automated test stripOrdered By: Tasneem Garcia on 10-09-2022 Leukocyte esterase Auto test strip Ql (U) Negative Negative [facility] Urobilinogen Auto test strip (U) [Mass/Vol]Ordered By: Tasneem Garcia on 10-09-2022 Urobilinogen (U) [Mass/Vol] Normal mg/dL Normal [facility] WBC Auto (Bld) [#/Vol]Ordere d By: Tasneem Garcia on 10-09-2022 WBC (Bld) [#/Vol] 9.6 10*3/uL 3.8-11.6 [facility] pH Auto test strip (U)Ordere d By: Tasneem Garcia on 10-09-2022 pH (U) 7.5 [pH] 5.0-9.0 [facility] CBC AUTO DIFFon 10-05-2022 BASO # 0.0 103/ul Normal 0.0-0.1 [facility] Comment on above: Performed By: #### C BC ####[facility] [address] [place], [place] [address]Dr. Harvinder Riley Basophils/100 WBC (Bld) 0.5 % Normal 0.2-2.0 [facility] Comment on above: Performed By: #### C BC ####[facility] [address] [place], [place] [address]Dr. Harvinder Riley EO # 0.1 103/ul Normal 0.0-0.7 [facility] Comment on above: Performed By: #### C BC ####[facility] [address] [place], [place] [address]Dr. Harvinder Riley Eosinophils/100 WBC (Bld) 1.4 % Normal 0.9-7.0 [facility] Comment on above: Performed By: #### C BC ####[facility] [address] [place], [place] [address]Dr. Harvinder Riley Erythrocyte distribution width (RBC) [Ratio] 13.8 % Normal 11.0-15.0 [facility] Comment on above: Performed By: #### C BC ####[facility] [address] [place] [address]Dr. Harvinder Riley Hematocrit (Bld) [Volume fraction] 42.4 % Normal 36.0-48.0 [facility] Comment on above: Performed By: #### C BC ####[facility] [address] [place], [place] [address]Dr. Harvinder Riley Hemoglobin (Bld) [Mass/Vol] 14.4 g/dL Normal 12.0-16.0 [facility] Comment on above: Performed By: #### C BC ####[facility] [address] [place], [place] [address]Dr. Harvinder Riley IG # 0.02 10e3/ul Normal 0.00-0.03 [facility] Comment on above: Performed By: #### C BC ####[facility] [address] [place], [place] [address]Dr. Harvinder Riley IG % 0.2 % Normal 0.0-0.5 [facility] Comment on above: Performed By: #### C BC ####[facility] [address] [place], [place] [address]Dr. Harvinder Riley LYMPH # 2.3 103/ul Normal 1.2-3.8 [facility] Comment on above: Performed By: #### C BC ####[facility] [address] [place], [place] [address]Dr. Harvinder Riley Lymphocytes/100 WBC (Bld) 27.6 % Normal 20.5-60.0 [facility] Comment on above: Performed By: #### C BC ####[facility] [address] [place], [place] [address]Dr. Harvinder Osvaldo MANUAL DIFF REQ NO Normal [facility] Comment on above: Performed By: #### C BC ####[facility] [address] [place], [place] [address]Dr. Sandraanand Riley MCH (RBC) [Entitic mass] 30.1 pg Normal 26.7-34.0 [facility] Comment on above: Performed By: #### C BC ####[facility] [address] [place] [address]Dr. Harvinder Riley MCHC (RBC) [Mass/Vol] 34.0 g/dL Normal 29.9-35.2 [facility] Comment on above: Performed By: #### C BC ####[facility] [address] [place], [place] [address]Dr. Harvinder Riley MCV (RBC) [Entitic vol] 88.5 fL Normal 81.0-99.0 [facility] Comment on above: Performed By: #### C BC ####[facility] [address] [place], [place] [address]Dr. Harvinder Osvaldo MONO # 0.4 103/ul Normal 0.3-0.8 [facility] Comment on above: Performed By: #### C BC ####[facility] [address] [place], [place] [address]Dr. Sandraanand Riley Monocytes/100 WBC (Bld) 5.2 % Normal 1.7-12.0 [facility] Comment on above: Performed By: #### C BC ####[facility] [address] [place], [place] [address]Dr. Harvinder Riley NEUT # 5.4 103/ul Normal 1.4-6.5 [facility] Comment on above: Performed By: #### C BC ####[facility] [address] [place], [place] [address]Dr. Sandraanand Riley Neutrophils/100 WBC (Bld) 65.1 % Normal 43.0-75.0 [facility] Comment on above: Performed By: #### C BC ####[facility] [address] [place], [place] [address]Dr. Harvinder Osvaldo Platelet mean volume (Bld) [Entitic vol] 9.5 fL Normal 9.5-13.5 [facility] Comment on above: Performed By: #### C BC ####[facility] [address] [place], [place] [address]Dr. Harvinder Riley PLT 227 103/ul Normal 150-450 [facility] Comment on above: Performed By: #### C BC ####[facility] [address] [place], [place] [address]Jc. Harvinder Riley RBC 4.79 106/ul Normal 4.20-5.40 [facility] Comment on above: Performed By: #### C BC ####[facility] [address] [place], [place] [address]Hh. Harvinder Riley WBC 8.3 103/ul Normal 4.0-11.0 [facility] Comment on above: Performed By: #### C BC ####[facility] [address] [place] [id number]. Harvinder Riley CRPon 10-05-2022 CRP [Mass/Vol] mg/L Normal <=1.0 [facility] Comment on above: Performed By: #### C MP, CRP ####[facility] [address] [place] [id number]. Harvinder Riley CT HEAD WO CONon 10-05-2022 CT HEAD WO CON EXAMINATION: CT HEAD WO CON, 10/05/2022 2:25 PM EDT HISTORY: HEADACHE COMPARISON: None. TECHNIQUE: CT scan of the head was performed without IV contrast. CT dose reduction technique was used, including Automated Exposure Control. FINDINGS: BRAIN PARENCHYMA/CSF SPACES: Ventricles are normal in size for age. There is no hemorrhage, mass effect or midline shift. There are no other significant findings. PARANASAL SINUSES: Clear. SKULL BASE AND CALVARIUM: Normal. EXTRACRANIAL SOFT TISSUES: Normal. IMPRESSION: No acute intracranial findings. Electronically authenticated by: IVAN ABRAHAM Date: 2022-10-05 15:47 Normal [facility] MONOon 10-05-2022 Monocytes (Bld) [#/Vol] Negative Normal NEGATIVE [facility] Comment on above: Performed By: #### M DAYANARA, PREG ####[facility] [address] [place] [id number]. Harvinder Riley PREG HCG QUALon 10-05-2022 , QUAL Negative Normal NEGATIVE [facility] Comment on above: Performed By: #### M DAYANARA, PREG ####[facility] [address] [place] [address]Dr. Harvinder Riley PROF 14(COMP METB)on 023 Albumin [Mass/Vol] 3.9 g/dL Normal 3.4-5.0 [facility] Comment on above: Performed By: #### C MP, CRP ####[facility] [address] [place] [address]Dr. Harvinder Riley Albumin/Globulin [Mass ratio] 1.0 {ratio} Normal [facility] Comment on above: Performed By: #### C MP, CRP ####[facility] [address] [place] [address]Dr. Harvinder Riley ALP [Catalytic activity/Vol] 56 U/L Normal 46-116 [facility] Comment on above: Performed By: #### C MP, CRP ####[facility] [address] [place] [address]Dr. Harvinder Riley ALT [Catalytic activity/Vol] 18 U/L Normal 14-59 [facility] Comment on above: Performed By: #### C MP, CRP ####[facility] [address] [place] [address]Dr. Harvinder Riley Anion gap [Moles/Vol] 14.4 mmol/L Normal [facility] Comment on above: Performed By: #### C MP, CRP ####[facility] [address] [place] [address]Dr. Harvinder Riley AST [Catalytic activity/Vol] 16 U/L Normal 15-37 [facility] Comment on above: Performed By: #### C MP, CRP ####[facility] [address] [place] [address]Dr. Harvinder Riley Bilirubin [Mass/Vol] 0.3 mg/dL Normal 0.2-1.0 [facility] Comment on above: Performed By: #### C MP, CRP ####[facility] [address] [place] [address]Dr. Harvinder Riley Calcium [Mass/Vol] 8.8 mg/dL Normal 8.5-10.1 [facility] Comment on above: Performed By: #### C MP, CRP ####[facility] [address] [place] [address]Dr. Harvinder Riley Chloride [Moles/Vol] 104 mmol/L Normal 98-107 [facility] Comment on above: Performed By: #### C MP, CRP ####[facility] [address] [place] [address]Dr. Harvinder Riley CO2 [Moles/Vol] 25.4 mmol/L Normal 21.0-32.0 [facility] Comment on above: Performed By: #### C MP, CRP ####[facility] [address] [place], [place] [address]Dr. Harvinder Riley Creatinine [Mass/Vol] 0.84 mg/dL Normal 0.55-1.02 [facility] Comment on above: Performed By: #### C MP, CRP ####[facility] [address] [place], [place] [address]Dr. Harvinder Riley EGFR-AF IRAQI >60 Normal >=60 [facility] Comment on above: Performed By: #### C MP, CRP ####[facility] [address] [place], [place] [address]Dr. Harvinder Riley EGFR-NON AF IRAQI >60 Normal >=60 [facility] Comment on above: Performed By: #### C MP, CRP ####[facility] [address] [place], [place] [address]Dr. Harvinder Riley Globulin (S) [Mass/Vol] 4.0 g/dL Normal [facility] Comment on above: Performed By: #### C MP, CRP ####[facility] [address] [place] [address]Dr. Harvinder Osvaldo Glucose [Mass/Vol] 115 mg/dL Critically high 74-106 [facility] Comment on above: Performed By: #### C MP, CRP ####[facility] [address] [address]Dr. Harvinder Riley Potassium [Moles/Vol] 3.8 mmol/L Normal 3.5-5.1 [facility] Comment on above: Performed By: #### C MP, CRP ####[facility] [address] [address]Dr. Harvinder Riley Protein [Mass/Vol] 7.9 g/dL Normal 6.4-8.2 [facility] Comment on above: Performed By: #### C MP, CRP ####[facility] [address] [place] [address]Dr. Harvinder Riley Sodium [Moles/Vol] 140 mmol/L Normal 136-145 [facility] Comment on above: Performed By: #### C MP, CRP ####[facility] [address] [address]Dr. Harvinder Riley Urea nitrogen [Mass/Vol] 8.0 mg/dL Normal 7.0-18.0 [facility] Comment on above: Performed By: #### C MP, CRP ####[facility] [address] [address]Dr. Harvinder Riley Urea nitrogen/Creatinine [Mass ratio] 9.5 mg/mg Normal [facility] Comment on above: Performed By: #### C MP, CRP ####[facility] [address] [address]Dr. Harvinder Riley [facility] 2022 SED RATE 22 mm/hr Critically high <=20 [facility] Comment on above: Performed By: #### S EDR ####[facility] [address] [address]Dr. Harvinder Riley TSHon 10-05-2022 TSH 2.144 uIU/mL Normal 0.358-3.740 [facility] Comment on above: Performed By: #### C BC #### [facility] [address] [address] [address] Harvinder Riley CBC AUTO DIFFon 10-04-2022 BASO # 0.0 103/ul Normal 0.0-0.1 [facility] Comment on above: Performed By: #### C BC #### [facility] [address] [address] [address] Harvinder Riley Basophils/100 WBC (Bld) 0.3 % Normal 0.2-2.0 [facility] Comment on above: Performed By: #### C BC #### [facility] [address] [place] [address] Dr. Harvinder Riley EO # 0.2 103/ul Normal 0.0-0.7 [facility] Comment on above: Performed By: #### C BC #### [facility] [address] [place] [address] Dr. Harvinder Riley Eosinophils/100 WBC (Bld) 2.8 % Normal 0.9-7.0 [facility] Comment on above: Performed By: #### C BC #### [facility] [address] [place] [address] Dr. Harvinder Riley Erythrocyte distribution width (RBC) [Ratio] 13.9 % Normal 11.0-15.0 [facility] Comment on above: Performed By: #### C BC #### [facility] [address] [place] [address] Dr. Harvinder Riley Hematocrit (Bld) [Volume fraction] 42.0 % Normal 36.0-48.0 [facility] Comment on above: Performed By: #### C BC #### [facility] [address] [place] [address] Dr. Harvinder Riley Hemoglobin (Bld) [Mass/Vol] 13.8 g/dL Normal 12.0-16.0 [facility] Comment on above: Performed By: #### C BC #### [facility] [address] [place] [address] Dr. Harvinder Riley IG # 0.02 10e3/ul Normal 0.00-0.03 [facility] Comment on above: Performed By: #### C BC #### [facility] [address] [place] [address] Dr. Harvinder Riley IG % 0.3 % Normal 0.0-0.5 [facility] Comment on above: Performed By: #### C BC #### [facility] [address] [place] [address] Dr. Harvinder Riley LYMPH # 1.8 103/ul Normal 1.2-3.8 [facility] Comment on above: Performed By: #### C BC #### [facility] [address] [place] [address] Dr. Harvinder Riley Lymphocytes/100 WBC (Bld) 25.1 % Normal 20.5-60.0 [facility] Comment on above: Performed By: #### C BC #### [facility] [address] [place] [address] Dr. Harvinder Riley MANUAL DIFF REQ NO Normal [facility] Comment on above: Performed By: #### C BC #### [facility] [address] [place] [address] Dr. Harvinder Riley MCH (RBC) [Entitic mass] 29.6 pg Normal 26.7-34.0 [facility] Comment on above: Performed By: #### C BC #### [facility] [address] [place] [address] Dr. Harvinder Riley MCHC (RBC) [Mass/Vol] 32.9 g/dL Normal 29.9-35.2 [facility] Comment on above: Performed By: #### C BC #### [facility] [address] [place] [address] Dr. Harvinder Riley MCV (RBC) [Entitic vol] 90.1 fL Normal 81.0-99.0 [facility] Comment on above: Performed By: #### C BC #### [facility] [address] [place] [address] Dr. Harvinder Riley MONO # 0.6 103/ul Normal 0.3-0.8 [facility] Comment on above: Performed By: #### C BC #### [facility] [address] [place] [address] Dr. Harvinder Riley Monocytes/100 WBC (Bld) 8.2 % Normal 1.7-12.0 [facility] Comment on above: Performed By: #### C BC #### [facility] [address] [place] [address] Dr. Harvinder Riley NEUT # 4.6 103/ul Normal 1.4-6.5 [facility] Comment on above: Performed By: #### C BC #### [facility] [address] [place] [address] Dr. Harvinder Riley Neutrophils/100 WBC (Bld) 63.3 % Normal 43.0-75.0 [facility] Comment on above: Performed By: #### C BC #### [facility] [address] [place] [address] Dr. Harvinder Riley Platelet mean volume (Bld) [Entitic vol] 9.7 fL Normal 9.5-13.5 [facility] Comment on above: Performed By: #### C BC #### [facility] [address] [place] [address] Dr. Harvinder Riley PLT 216 103/ul Normal 150-450 [facility] Comment on above: Performed By: #### C BC #### [facility] [address] [place] [address] Dr. Harvinder Riley RBC 4.66 106/ul Normal 4.20-5.40 [facility] Comment on above: Performed By: #### C BC #### [facility] [address] [place] [address] Dr. Harvinder Riley WBC 7.2 103/ul Normal 4.0-11.0 [facility] Comment on above: Performed By: #### C BC #### [facility] [address] [place] [address] Dr. Harvinder Riley FREE T3on 10-04-2022 FREE T3 2.07 pg/mlL Critically low 2.18-3.98 [facility] Comment on above: Performed By: #### F T3, CMP, T4, TSH #### [facility] [address] [place] [address] Dr. Harvinder Riley IRONon 10-04-2022 Iron [Mass/Vol] 32.0 ug/dL Critically low 50.0-170.0 [place] Comment on above: Performed By: #### V ITB12, IRON, VITAD #### [facility] [address] [address] [address] Harvinder Riley PROF 14(COMP METB)on 023 Albumin [Mass/Vol] 3.7 g/dL Normal 3.4-5.0 [facility] Comment on above: Performed By: #### F T3, CMP, T4, TSH #### [facility] [address] [address] [address] Harvinder Riley Albumin/Globulin [Mass ratio] 1.1 {ratio} Normal [facility] Comment on above: Performed By: #### F T3, CMP, T4, TSH #### [facility] [address] [address] [address] Harvinder Riley ALP [Catalytic activity/Vol] 58 U/L Normal 46-116 [facility] Comment on above: Performed By: #### F T3, CMP, T4, TSH #### [facility] [address] [address] [address] Harvinder Riley ALT [Catalytic activity/Vol] 13 U/L Critically low 14-59 [facility] Comment on above: Performed By: #### F T3, CMP, T4, TSH #### [facility] [address] [address] [address] Harvinder Riley Anion gap [Moles/Vol] 11.6 mmol/L Normal [facility] Comment on above: Performed By: #### F T3, CMP, T4, TSH #### [facility] [address] [address] [address] Harvinder Riley AST [Catalytic activity/Vol] 12 U/L Critically low 15-37 [facility] Comment on above: Performed By: #### F T3, CMP, T4, TSH #### [facility] [address] [address] [address] Harvinder Riley Bilirubin [Mass/Vol] 0.1 mg/dL Critically low 0.2-1.0 [facility] Comment on above: Performed By: #### F T3, CMP, T4, TSH #### [facility] [address] [address] [address] Harvinder Riley Calcium [Mass/Vol] 8.7 mg/dL Normal 8.5-10.1 [facility] Comment on above: Performed By: #### F T3, CMP, T4, TSH #### [facility] [address] [address] [address] Harvinder Riley Chloride [Moles/Vol] 106 mmol/L Normal 98-107 [facility] Comment on above: Performed By: #### F T3, CMP, T4, TSH #### [facility] [address] [address] [address] Harvinder Riley CO2 [Moles/Vol] 27.9 mmol/L Normal 21.0-32.0 [facility] Comment on above: Performed By: #### F T3, CMP, T4, TSH #### [facility] [address] [place] [address] Dr. Harvinder Riley Creatinine [Mass/Vol] 0.87 mg/dL Normal 0.55-1.02 [facility] Comment on above: Performed By: #### F T3, CMP, T4, TSH #### [facility] [address] [place] [address] Dr. Harvinder Riley EGFR-AF IRAQI >60 Normal >=60 [facility] Comment on above: Performed By: #### F T3, CMP, T4, TSH #### [facility] [address] [place] [address] Dr. Harvinder Riley EGFR-NON AF IRAQI >60 Normal >=60 [facility] Comment on above: Performed By: #### F T3, CMP, T4, TSH #### [facility] [address] [place] [address] Dr. Harvinder Riley Globulin (S) [Mass/Vol] 3.4 g/dL Normal [facility] Comment on above: Performed By: #### F T3, CMP, T4, TSH #### [facility] [address] [place] [address] Dr. Harvinder Riley Glucose [Mass/Vol] 108 mg/dL Critically high 74-106 [facility] Comment on above: Performed By: #### F T3, CMP, T4, TSH #### [facility] [address] [place] [address] Dr. Harvinder Riley Potassium [Moles/Vol] 4.5 mmol/L Normal 3.5-5.1 [facility] Comment on above: Performed By: #### F T3, CMP, T4, TSH #### [facility] [address] [place] [address] Dr. Harvinder Riley Protein [Mass/Vol] 7.1 g/dL Normal 6.4-8.2 [facility] Comment on above: Performed By: #### F T3, CMP, T4, TSH #### [facility] [address] [place] [address] Dr. Harvinder Riley Sodium [Moles/Vol] 141 mmol/L Normal 136-145 [facility] Comment on above: Performed By: #### F T3, CMP, T4, TSH #### [facility] [address] [place] [address] Dr. Harvinder Riley Urea nitrogen [Mass/Vol] 12.0 mg/dL Normal 7.0-18.0 [facility] Comment on above: Performed By: #### F T3, CMP, T4, TSH #### [facility] [address] [place] [address] Dr. Harvinder Riley Urea nitrogen/Creatinine [Mass ratio] 13.8 mg/mg Normal [facility] Comment on above: Performed By: #### F T3, CMP, T4, TSH #### [facility] [address] [place] [address] Dr. Harvinder Riley T4on 10-04-2022 T4 [Mass/Vol] 7.80 ug/dL Normal 4.80-13.90 [facility] Comment on above: Performed By: #### F T3, CMP, T4, TSH #### [facility] [address] [place] [address] Dr. Harvinder Riley TSHon 10-04-2022 TSH 0.959 uIU/mL Normal 0.358-3.740 [facility] Comment on above: Performed By: #### F T3, CMP, T4, TSH #### [facility] [address] [place] [address] Dr. Harvinder Riley VITAMIN B12on 10-04-2022 Cobalamin (Vitamin B12) [Mass/Vol] 325.0 pg/mL Normal 193.0-986.0 [facility] Comment on above: Performed By: #### V ITB12, IRON, VITAD #### [facility] [address] [address] [address] Harvinder Riley VITAMIN D 25 OHon 10-04-2022 VIT D 25-OH 25.3 ng/mL Normal [facility] Comment on above: Performed By: #### V ITB12, IRON, VITAD #### [facility] [address] [address] [address] Harvinder Riley VIT D RANGES SEE BELOW Normal [facility] Comment on above: Result Comment: <20 ng/mL Vit D deficient 20 - <30 ng/mL Vit D insufficient 30 - 100 ng/mL Vit D sufficient >100 ng/mL Potential Toxicity Performed By: #### V ITB12, IRON, VITAD #### [facility] [address] [address] [address] Harvinder Riley CBC AUTO DIFFon 09-15-2022 BASO # 0.0 103/ul Normal 0.0-0.1 [facility] Comment on above: Performed By: #### C BC ####[facility] [address] [address]Dr. Harvinder Riley Basophils/100 WBC (Bld) 0.4 % Normal 0.2-2.0 [facility] Comment on above: Performed By: #### C BC ####[facility] [address] [address]Dr. Harvinder Riley EO # 0.4 103/ul Normal 0.0-0.7 [facility] Comment on above: Performed By: #### C BC ####[facility] [address] [address]Dr. Harvinder Riley Eosinophils/100 WBC (Bld) 3.8 % Normal 0.9-7.0 [facility] Comment on above: Performed By: #### C BC ####[facility] [address] [place] [id number]. Harvinder Riley Erythrocyte distribution width (RBC) [Ratio] 14.1 % Normal 11.0-15.0 [facility] Comment on above: Performed By: #### C BC ####[facility] [address] [place], [place] [id number]. Harvinder Riley Hematocrit (Bld) [Volume fraction] 40.7 % Normal 36.0-48.0 [facility] Comment on above: Performed By: #### C BC ####[facility] [address] [place], [place] [address]Dr. Harvinder Riley Hemoglobin (Bld) [Mass/Vol] 13.2 g/dL Normal 12.0-16.0 [facility] Comment on above: Performed By: #### C BC ####[facility] [address] [place], [place] [address]Dr. Harvinder Riley IG # 0.03 10e3/ul Normal 0.00-0.03 [facility] Comment on above: Performed By: #### C BC ####[facility] [address] [place], [place] [address]Dr. Harvinder Riley IG % 0.3 % Normal 0.0-0.5 [facility] Comment on above: Performed By: #### C BC ####[facility] [address] [place], [place] [address]Dr. Harvinder Riley LYMPH # 2.3 103/ul Normal 1.2-3.8 [facility] Comment on above: Performed By: #### C BC ####[facility] [address] [place], [place] [address]Dr. Harvinder Riley Lymphocytes/100 WBC (Bld) 25.2 % Normal 20.5-60.0 [facility] Comment on above: Performed By: #### C BC ####[facility] [address] [place], [place] [address]Dr. Harvinder Riley MANUAL DIFF REQ NO Normal [facility] Comment on above: Performed By: #### C BC ####[facility] [address] [place] [address] Harvinder Riley MCH (RBC) [Entitic mass] 29.3 pg Normal 26.7-34.0 [facility] Comment on above: Performed By: #### C BC ####[facility] [address] [address]Dr. Harvinder Riley MCHC (RBC) [Mass/Vol] 32.4 g/dL Normal 29.9-35.2 [facility] Comment on above: Performed By: #### C BC ####[facility] [address] [place], [place] [address]Dr. Harvinder Riley MCV (RBC) [Entitic vol] 90.4 fL Normal 81.0-99.0 [facility] Comment on above: Performed By: #### C BC ####[facility] [address] [place], [place] [address]Dr. Harvinder Osvaldo MONO # 0.6 103/ul Normal 0.3-0.8 [facility] Comment on above: Performed By: #### C BC ####[facility] [address] [place], [place] [address]Dr. Harvinder Riley Monocytes/100 WBC (Bld) 5.9 % Normal 1.7-12.0 [facility] Comment on above: Performed By: #### C BC ####[facility] [address] [place], [place] [address]Dr. Harvinder Riley NEUT # 6.0 103/ul Normal 1.4-6.5 [facility] Comment on above: Performed By: #### C BC ####[facility] [address] [place], [place] [address]Dr. Harvinder Osvaldo Neutrophils/100 WBC (Bld) 64.4 % Normal 43.0-75.0 [facility] Comment on above: Performed By: #### C BC ####[facility] [address] [place], [place] [address]Dr. Harvinder Riley Platelet mean volume (Bld) [Entitic vol] 9.3 fL Critically low 9.5-13.5 [facility] Comment on above: Performed By: #### C BC ####[facility] [address] [place], [place] [address]Ge. Harvinder Riley PLT 224 103/ul Normal 150-450 [facility] Comment on above: Performed By: #### C BC ####[facility] [address] [place], [place] [address]Hg. Harvinder Riley RBC 4.50 106/ul Normal 4.20-5.40 [facility] Comment on above: Performed By: #### C BC ####[facility] [address] [place], [place] [address]Cs. Harvinder Riley WBC 9.3 103/ul Normal 4.0-11.0 [facility] Comment on above: Performed By: #### C BC ####[facility] [address] [place] [id number]. Harivnder Riley FREE THYROXINE INDEX T7on FTI 2.24 Normal 1.30-4.50 [facility] Comment on above: Performed By: #### T SH, CMP, T7 ####[facility] [address] [place], [place] [address]Ag. Harvinder Riley T3U 32.0 % Normal 30.0-39.0 [facility] Comment on above: Performed By: #### T SH, CMP, T7 ####[facility] [address]scz[address]x0384 [place], [place] [address]Id. Harvinder Osvaldo T4 [Mass/Vol] 7.00 ug/dL Normal 4.80-13.90 [facility] Comment on above: Performed By: #### T SH, CMP, T7 ####[facility] [address]q75[address] [place], [place] [address]Vu. Harvinder Riley IRONon 09-15-2022 Iron [Mass/Vol] 60.0 ug/dL Normal 50.0-170.0 [facility] Comment on above: Performed By: #### C BC #### [facility] [address] [place], [place] [address] Dr. Harvinder Riley PROF 14(COMP METB)on 023 Albumin [Mass/Vol] 3.7 g/dL Normal 3.4-5.0 [facility] Comment on above: Performed By: #### T SH, CMP, T7 ####[facility] [address] [place] [address]Dr. Harvinder Riley Albumin/Globulin [Mass ratio] 1.1 {ratio} Normal [facility] Comment on above: Performed By: #### T SH, CMP, T7 ####[facility] [address] [place] [address]Dr. Harvinder Riley ALP [Catalytic activity/Vol] 54 U/L Normal 46-116 [facility] Comment on above: Performed By: #### T SH, CMP, T7 ####[facility] [address] [place], [place] [address]Dr. Harvinder Riley ALT [Catalytic activity/Vol] 17 U/L Normal 14-59 [facility] Comment on above: Performed By: #### T SH, CMP, T7 ####[facility] [address] [place], [place] [address]Dr. Harvinder Riley Anion gap [Moles/Vol] 12.1 mmol/L Normal [facility] Comment on above: Performed By: #### T SH, CMP, T7 ####[facility] [address] [place], [place] [address]Dr. Harvinder Riley AST [Catalytic activity/Vol] 16 U/L Normal 15-37 [facility] Comment on above: Performed By: #### T SH, CMP, T7 ####[facility] [address] [place], [place] [address]Dr. Harvinder Riley Bilirubin [Mass/Vol] 0.3 mg/dL Normal 0.2-1.0 [facility] Comment on above: Performed By: #### T SH, CMP, T7 ####[facility] [address] [place], [place] [address]Dr. Harvinder Riley Calcium [Mass/Vol] 8.8 mg/dL Normal 8.5-10.1 [facility] Comment on above: Performed By: #### T SH, CMP, T7 ####[facility] [address] [address]Dr. Harvinder Riley Chloride [Moles/Vol] 104 mmol/L Normal 98-107 [facility] Comment on above: Performed By: #### T PAPA CMP, T7 ####[facility] [address] [address]Dr. Harvinder Riley CO2 [Moles/Vol] 26.0 mmol/L Normal 21.0-32.[address] [facility] Comment on above: Performed By: #### T PAPA CMP, T7 ####[facility] [address] [address]Dr. Harvinder Riley Creatinine [Mass/Vol] 0.77 mg/dL Normal 0.55-1.02 [facility] Comment on above: Performed By: #### T PAPA CMP, T7 ####[facility] [address] [address]Dr. Harvinder Riley EGFR-AF IRAQI >60 Normal >=[address] [facility] Comment on above: Performed By: #### T PAPA CMP, T7 ####[facility] [address] [address]Dr. Harvinder Riley EGFR-NON AF IRAQI >60 Normal >=60 [facility] Comment on above: Performed By: #### T PAPA CMP, T7 ####[facility] [address] [place] [address]Dr. Harvinder Riley Globulin (S) [Mass/Vol] 3.5 g/dL Normal [facility] Comment on above: Performed By: #### T PAPA CMP, T7 ####[facility] [address] [place] [address]Dr. Harvinder Riley Glucose [Mass/Vol] 111 mg/dL Critically high 74-106 [facility] Comment on above: Performed By: #### T PAPA CMP, T7 ####[facility] [address] [place] [address]Dr. Harvinder Riley Potassium [Moles/Vol] 4.1 mmol/L Normal 3.5-5.1 [facility] Comment on above: Performed By: #### T PAPA CMP, T7 ####[facility] [address] [place] [id number]. Harvinder Riley Protein [Mass/Vol] 7.2 g/dL Normal 6.4-8.2 [facility] Comment on above: Performed By: #### T SH, CMP, T7 ####[facility] [address] [place] [address]Dr. Harvinder Riley Sodium [Moles/Vol] 138 mmol/L Normal 136-145 [facility] Comment on above: Performed By: #### T PAPA, CMP, T7 ####[facility] [address] [place] [address]Dr. Harvinder Riley Urea nitrogen [Mass/Vol] 14.0 mg/dL Normal 7.0-18.0 [facility] Comment on above: Performed By: #### T PAPA, CMP, T7 ####[facility] [address] [place] [address]Dr. Harvinder Riley Urea nitrogen/Creatinine [Mass ratio] 18.2 mg/mg Normal [facility] Comment on above: Performed By: #### T PAPA, CMP, T7 ####[facility] [address] [place] [id number]. Harvinder Riley TSHon 09-15-2022 TSH 1.909 uIU/mL Normal 0.358-3.740 [facility] Comment on above: Performed By: #### T PAPA, CMP, T7 ####[facility] [address] [place] [id number]. Harvinder Riley VITAMIN B12on 09-15-2022 Cobalamin (Vitamin B12) [Mass/Vol] 397.0 pg/mL Normal 193.0-986.0 [facility] Comment on above: Performed By: #### C BC #### [facility] [address] [place] [address] Dr. Harvinder Riley VITAMIN D 25 OHon 09-15-2022 VIT D 25-OH 22.3 ng/mL Normal [facility] Comment on above: Performed By: #### C BC #### [facility] [address] [place] [address] Dr. Harvinder Riley VIT D RANGES SEE BELOW Normal [facility] Comment on above: Result Comment: <20 ng/mL Vit D deficient 20 - <30 ng/mL Vit D insufficient 30 - 100 ng/mL Vit D sufficient >100 ng/mL Potential Toxicity Performed By: #### C BC #### [facility] [address] [address] [address] Harvinder Riley XR LSPINE 2_3 VIEWSon 2022 XR LSPINE 2_3 VIEWS EXAM: XR LSPINE 2_3 VIEWS HISTORY: Low back pain COMPARISON: None. TECHNIQUE: 3 view study FINDINGS: Vertebral bodies and disc spaces are normal in height. There is a mild left convexity curve of the lower lumbar spine seen in frontal projection. IMPRESSION: Mild left convexity curve. No acute finding otherwise is identified. Electronically authenticated by: Lai SEBASTIAN Date: 2022-09-11 00:33 Normal [facility] Chlam/GC-DNA Amplifiedon Chlam[facility]GC[facility]achomat[facility] DNA NOT DETECTEDNeisseria gonorrhoeae DNA NOT DETECTEDReference range NOT DETECTEDMethod: Strand Displacement Amplification-BD ProbeTec AssayComment: A negative result does not precludeC.trachomatis or N. gonorrhoeae infection becauseresults are dependent on adequate specimen collection,absence of inhibitors, and sufficient DNA to be detected. Normal [facility] Comment on above: Performed By: #### C TGCA ####[address] [address] ED NOTEon 05-28-2017 ED NOTE HNO ID: [id number] Author: Herman HuertaTechKayla Smith Service: Emergency Medicine Author Type: Process Area Supervisor Type: ED Notes Filed: 05/27/2017 10:24 PM Note Text: Urine specimen obtained and sent. Normal [facility] ED NOTE HNO ID: [id number] Author: Tarun HuertaRn) GERMÁN Kaur Service: Emergency Medicine Author Type: Registered Nurse Type: ED Notes Filed: 05/27/2017 10:16 PM Note Text: Pelvic exam completed by the ER doctor with pelvic labs and urine collected/sent to lab. Normal [facility] Rapid Bact.Vaginosison 05-28 Rapid Bact.Vaginosis see below Normal [facility] Comment on above: Result Comment: Nega tive for the presence of bacterial vaginosis. Performed By: #### R APBV ####[place] [address] Rapid Trichomonas Agon 05-28 Rapid Trichomonas Ag see below Normal [facility] Comment on above: Result Comment: No T richomonas antigen present or the antigen level is belowdetection limit of the assay (2500 organisms/mL). Performed By: #### R APTR ####[place] [address] Urinalysis Routineon 018 Ep Cells Urine 2.4 /hpf Normal 0.0-5.0 [facility] Comment on above: Performed By: #### U RIN2 ####[place] [address] Hyaline Cast 1.1 /lpf High 0.0-1.0 [facility] Comment on above: Performed By: #### U RIN2 ####[place] [address] Urine, bacteria in sediment NONE Normal None [facility] Comment on above: Performed By: #### U RIN2 ####[place] [address] Urine, erythrocytes in sediment by area 2.5 /[HPF] Normal 0.0-5.0 [facility] Comment on above: Performed By: #### U RIN2 ####[place] [address] Urine, leukocytes in sedmiment 5.4 /[HPF] High 0.0-5.0 [facility] Comment on above: Performed By: #### U RIN2 ####[address] [address] Bilirubin Urine Negative Normal Negative [facility] Comment on above: Performed By: #### U RIN2 ####[place] [address] Hemoglobin,Urine Negative Normal Negative [facility] Comment on above: Performed By: #### U RIN2 ####[facility] [place], [place] [address] Ketone Urine Negative Normal Negative [facility] Comment on above: Performed By: #### U RIN2 ####[place] [address] Nitrites Urine Negative Normal Negative [facility] Comment on above: Performed By: #### U RIN2 ####[address] [address] Protein Urine Negative Normal Negative [facility] Comment on above: Performed By: #### U RIN2 ####[place] [address] Urine, appearance CLOUDY Normal [facility] Comment on above: Performed By: #### U RIN2 ####[place] [address] Urine, color YELLOW Normal [facility] Comment on above: Performed By: #### U RIN2 ####[place] [address] Urine, glucose presence Negative Normal Negative [facility] Comment on above: Performed By: #### U RIN2 ####[place] [address] Urine, pH 6.0 [pH] Normal 5.0-8.0 [facility] Comment on above: Performed By: #### U RIN2 ####[place] [address] Urobilinogen,Ur 0.2 EU/dL Normal 0.0-1.0 [facility] Comment on above: Performed By: #### U RIN2 ####[place] [address] WBC (Leukocytes) Negative Normal Negative [facility] Comment on above: Performed By: #### U RIN2 ####[place] [address] Urine HCG, Qual.on 8 HCG.beta subunit ( test) Ql (U) Negative Normal Negative [facility] Comment on above: Performed By: #### H CGUR ####[facility] [place], [place] [address] Specific [place], Ur 1.028 Normal 1.005-1.030 [facility] Comment on above: Performed By: #### H CGUR ####[facility] [place], [place] [address] Performed By: #### U RIN2 ####[facility] [place], [place] [address] 8on 05-27-2017 8 HNO ID: [id number]: Karmen GarrettService: Emergency MedicineAuthor Type: Physician AssistantType: ED Triage NotesFiled: 05/27/2017 6:26 PMNote Text:ED INTAKE NOTEPatient Name: Ladi BernsteinMRN: [id number] Date: 05/27/17BRIEF HPI:Patient is a 17 y/o F who presents to the ED c/o left lower dental painand facial swelling x 2 days. Patient reports her wisdom teeth are comingin and she called her dentist and he recommended her to come into the EDfor antibiotics. Patient denies taking anything for the pain or swelling.Patient denies fever/chills, inability to swallow, difficulty breathing,sore throat.I was in the process of discharging the patient with dental pain, howevershe started complaining of vaginal bleeding x 2 weeks using 1 superplustampon an hour and abdominal pain and cramping. Patient reports she isnauseous, but denies vomiting. She reports having two periods in the monthaprilone in the beginning and one at the end . Due to the newsymptoms, blood work was ordered and she was sent to the waiting room [facility] for a room that is appropriate for a full examination. Her dischargepapers and prescriptions for dental pain/infection were discarded into theconfidential shredding box.BRIEF EXAM:Constitutional: Well developed, well nourished, NADHEENT: Normocephalic, atraumatic, uvula midline, tonsils symmetrical, nodrooling and no trismus, floor of the mouth is soft, patent airway, nosigns of dental/buccal abscessRespiratory: No respiratory distressAbdomen: Soft, Limited due to patient sitting upright in exam chair withher coat on.Neuro: [id number]: Warm and dryINTAKE WORKUP:CBC, CMP, Lipase, UA, urine pregnancySIGNATURE: Karmen Garrett PA-C Normal [facility] Comprehensive Panelon 2017 Alkaline phosphatase (ALP) 61 U/L Normal 46-116 [facility] Comment on above: Performed By: #### P 14 ####[facility] [place], [place] [address] Bilirubin Ql (U) 0.2 mg/dL Normal 0.2-1.0 [facility] Comment on above: Performed By: #### P 14 ####[address] [address] Protein 7.9 g/dL Normal 6.4-8.2 [facility] Comment on above: Performed By: #### P 14 ####[address] [address] Alanine aminotransferase (ALT) 14 U/L Normal 12-78 [facility] Comment on above: Performed By: #### P 14 ####[address] [address] Aspartate aminotransferase (AST) 9 U/L Normal 9-37 [facility] Comment on above: Performed By: #### P 14 ####[address] [address] Creatinine 0.80 mg/dL Normal 0.51-0.95 [facility] Comment on above: Performed By: #### P 14 ####[address] [address] Albumin 3.9 g/dL Normal 3.4-5.0 [facility] Comment on above: Performed By: #### P 14 ####[address] [address] Anion gap 4 mmol/L Low 8-16 [facility] Comment on above: Performed By: #### P 14 ####[address] [address] Calcium 9.0 mg/dL Normal 8.5-10.1 [facility] Comment on above: Performed By: #### P 14 ####[facility] [place] [address] CO2 30 mmol/L Normal 21-32 [facility] Comment on above: Performed By: #### P 14 ####[facility] [place], [place] [address] Glucose mass conc 96 mg/dL Normal 70-99 [facility] Comment on above: Performed By: #### P 14 ####[facility] [place] [address] Urea nitrogen 15 mg/dL Normal 7-18 [facility] Comment on above: Performed By: #### P 14 ####[facility] [place] [address] Chloride 107 mmol/L Normal 98-107 [facility] Comment on above: Performed By: #### P 14 ####[facility] [place] [address] Potassium molar conc 4.0 mmol/L Normal 3.5-5.1 [facility] Comment on above: Performed By: #### P 14 ####[place] [address] Sodium 137 mmol/L Normal 136-145 [facility] Comment on above: Performed By: #### P 14 ####[address] [address] ED PROV NOTEon 05-27-2017 ED PROV NOTE HNO ID: [id number]: LIZ Villanuevaervice: Emergency MedicineAuthor Type: PhysicianType: ED Provider NotesFiled: 08/16/2017 6:21 AMNote Text:ED Provider NotePatient Name: Ladi BernsteinMRN: [id number] DATE: 05/27/17HistoryPatient presents with:Facial Swelling: pt states that her wisdom teeth are coming in and she hasswelling to left side of face, able to handle secretions, no difficultyswallowing. Pt states that she is also having severe menstrual cramps.HPI Comments: Sunni presents to the emergency room for evaluation ofmultiple complaints. She had been seen for left lower dental pain, andsome facial swelling ?2 days. She was seen by the mid-level practitioner,and was about to be discharged with Kyree and Carolina Daniel when she endorsedhaving abdominal pain, cramping ?2 weeks. She endorses bleeding, about 1tampon an hour. She states that she had 2 periods during April, hasbeen having pain since then. She has been in the past, which wasterminated. She has had a cholecystectomy, but denies other surgeries inher abdomen. She endorses diarrhea, nonbloody. She is actually active,does not wear condoms consistently. Denies vaginal purulent discharge,however difficult to tell due to the amount of blood. She denies traumato her abdomen or vagina. She rates her pain as 10 out of 10, locatedthroughout her abdomen, without localizing symptoms. She describes it ascrampy. It does not radiate. She has nausea, without vomiting. Shedenies fevers, chills.History provided by: PatientPAST MEDICAL HISTORYDiagnosis Date- DepressionNo past surgical history on file.FAMILY HISTORYProblem Relation Age of Onset- Diabetes Father- Glaucoma FatherSocial HistorySocial History Main Topics- Smoking status: Current Every Day Smoker Packs/day: 0.50 Years: 2.00- Smokeless tobacco: Never Used- Alcohol use Yes Comment: occassionally- Drug use: Yes Special: Marijuana Comment: everyday- Sexual activity: Yes Partners: Male control/ protection: CondomALLERGIESNo Known AllergiesReview of SystemsConstitutional: Negative for chills and fever.HENT: Positive for dental problem and facial swelling. Negative for eardischarge and ear pain.Eyes: Negative for pain and discharge.Respiratory: Negative for cough and shortness of breath.Cardiovascular: Negative for chest pain and palpitations.Gastrointes tinal: Positive for abdominal pain, diarrhea and nausea.Negative for constipation and vomiting.Genitourinary: Positive for menstrual problem and vaginal bleeding.Negative for dysuria, frequency, vaginal discharge and vaginal pain.Musculoskeletal: Negative for back pain and neck pain.Skin: Negative for rash and wound.Neurological: Negative for syncope, weakness and numbness.Psychiatric/Beh avioral: Negative for self-injury and suicidal ideas.Physical ExamBP 134/52 Pulse 85 Temp (Src) 98.4 (Oral) Resp 16 Ht 5' 4 (1.63m) Wt 180 lb (81.6kg) SpO2 100% LMP 05/27/2017 BMI 30.88 kg/(m2).Physical ExamConstitutional: She is oriented to person, place, and time. She appearswell-developed and well-nourished. No distress.HENT:Head: Normocephalic and atraumatic.Right Ear: External ear normal.Left Ear: External ear normal.Eyes: Pupils are equal, round, and reactive to light. No scleral icterus.Neck: Normal range of motion. Neck supple.Cardiovascular: Normal rate, regular rhythm, normal heart sounds andintact distal pulses. Exam reveals no gallop and no friction rub.No murmur heard.Pulmonary/Chest: Effort normal and breath sounds normal. No stridor. Norespiratory distress. She has no wheezes. She has no rales. She exhibitsno tenderness.Abdominal: Soft. There is tenderness (diffuse abdominal pain). There is noguarding.Musculoskelet al: Normal range of motion. She exhibits no edema, tendernessor deformity.Neurological: She is alert and oriented to person, place, and time. Nocranial nerve deficit.Skin: Skin is warm and dry. No rash noted. She is not diaphoretic.Psychiatric: She has a normal mood and affect.Nursing note and vitals reviewed.Diagnostic TestingResults for orders placed or performed during the hospital encounter of05/27/17COMPREHENSIVE METABOLIC PANEL (AK,AV,EU,FV,HL,WILL,MM,SP )Result Value Ref Range Sodium 137 136 - 145 mEq/L Potassium 4.0 3.5 - 5.1 mEq/L Chloride 107 98 - 107 mEq/L CO2 30 21 - 32 mEq/L Glucose 96 70 - 99 mg/dL BUN 15 7 - 18 mg/dL Creatinine 0.80 0.51 - 0.95 mg/dL Calcium 9.0 8.5 - 10.1 mg/dL Albumin 3.9 3.4 - 5.0 g/dL Protein, Total 7.9 6.4 - 8.2 g/dL AST 9 9 - 37 U/L ALT 14 12 - 78 U/L Alkaline Phosphatase 61 46 - 116 U/L Bilirubin, Total 0.2 0.2 - 1.0 mg/dL Anion Gap 4 (L) 8 - 16LIPASE BLOOD (AK,AV,EU,FV,HL,WILL,MM,SP )Result Value Ref Range Lipase 151 73 - 393 U/LCBC + AUTO DIFF (AK,AV,EU,FV,HL,WILL,MM,SP )Result Value Ref Range WBC 10.05 (H) 3.98 - 10.04 thou/cmm RBC 4.51 3.93 - 5.22 mil/cmm HGB 12.8 11.2 - 15.7 g/dL Hematocrit 39.4 34.1 - 44.9 % MCV 87.4 79.4 - 94.8 fl MCH 28.4 25.6 - 32.2 pg MCHC 32.5 31.6 - 34.8 % RDW 13.8 11.7 - 14.4 % RDW-SD 43.8 36.4 - 46.3 fl Platelet Count 270 182 - 369 thou/cmm MPV 9.8 9.4 - 12.3 fl Seg Neutrophil 65.1 % Immature Grans 0.50 % Lymphocyte 24.6 % Monocyte 6.2 % Eosinophil 3.2 % Basophil 0.4 % Seg. Neut. # 6.54 (H) 1.56 - 6.13 thou/cmm Immature Grans # 0.05 0.00 - 0.05 thou/cmm Lymphocyte # 2.47 1.18 - 3.74 thou/cmm Monocyte # 0.62 0.27 - 0.70 thou/cmm Eosinophil # 0.32 (H) 0.00 - 0.31 thou/cmm Basophil # 0.04 0.01 - 0.08 thou/cmmURINALYSIS WITH MICROSCOPIC (IA,AV,EU,FV,HL,WILL,MM,SP )Result Value Ref Range Color YELLOW Urine Appearance CLOUDY Glucose, Urine NEGATIVE Negative mg/dL Ketones, Urine NEGATIVE Negative mg/dL Hemoglobin, Urine NEGATIVE Negative Protein, Urine NEGATIVE Negative mg/dL Nitrites Urine NEGATIVE Negative Bilirubin, Urine NEGATIVE Negative Specific [place], Ur 1.028 1.005 - 1.030 pH, Urine 6.0 5.0 - 8.0 Urobilinogen, Urine 0.2 0.0 - 1.0 EU/dL Leukocytes Esterase NEGATIVE Negative RBC, Urine 2.5 0.0 - 5.0 /hpf WBC, Urine 5.4 (H) 0.0 - 5.0 /hpf EP Cells Urine 2.4 0.0 - 5.0 /hpf Bacteria, Urine NONE None Hyaline Cast 1.1 (H) 0.0 - 1.0 /lpfHCG QUALITATIVE URINE (AK,AV,EU,FV,HL,WILL,MM,SP )Result Value Ref Range HCG Qualitative, Urine Negative Negative Specific [place], Ur 1.028 1.005 - 1.030MDRD GFRResult Value Ref Range eGFR >60 >60mL/min/1.85d7ELGMIHH, BLOOD (POC)Result Value Ref Range GLUCOSE METER 97 70 - 99 mg/dLRAPID BACT VAGINOSIS (AK)Result Value Ref Range Rapid Bact.Vaginosis see belowTRICHOMONAS PREP (AK,AV,EU,FV,HL,WILL,MM,SP )Result Value Ref Range Rapid Trichomonas Ag see belowProceduresMedical Decision Making / ED CourseED CoursePatient presents to the emergency room for evaluation of multiplecomplaints, initially seen for dental pain, now endorsing diffuseabdominal cramping, vaginal bleeding. Concern is for dysmenorrhea,dysfunction al uterine bleeding, threatened miscarriage. Physical examnotable for normal heart rate, no acute distress, diffuse abdominaltenderness without rebound, guarding, rigidity. Pelvic exam showed a fewclots, no active hemorrhage. Blood work did not show an anemia,electrolytes were within normal limits. HCG negative. Rapid bacterialvaginosis and respiratory negative. Her abdominal pain may be related tofibroids or dysmenorrhea. She was prescribed Motrin because she statedthe Naprosyn has not helped her in the past. She had no findings thatrequire CT scan at that time. Laboratory work was all within normallimits, with exception of a very very mild leukocytosis at 10.05, likelyphysiological and within laboratory error for normal. Her pain was notacute and opioids were not indicated at this time. When this wasexplained the patient she became very belligerent. She started yellingand making a seen in the ER. She was asked to leave, and was escorted outof the emergency department.Encounter Diagnosis ICD-10-CM1. Dental abscess K04.72. Generalized abdominal pain R10.843. Abnormal vaginal bleeding N93.9PlanThe Patient was DISCHARGED: Counseled patient regarding suspecteddiagnosis AND need for follow-up. Discharged home with verbal and writteninstructions. They were instructed to return as needed for persistent orworsening symptoms or any new concerns.Condition at time of disposition: stableSIGNATURE: Martine Trejo (Res) Dre, [id number]/06/18 2124Attending NoteI evaluated the patient and personally participated in the turcios components. I agree with the resident's findings and plan as documented and havediscussed the case and management of the patient's care with the resident.I was personally present and supervised turcios portions of all procedures.17 year old female presents with multiple complaints. Evaluated by [facility] for dental pain and was to be treated with abx and motrin forpossible abscess. WHen she became upset that she needed something strongerfor pain, she then relayed abd pain x2 weeks and vaginal bleeding. Noother GI symptoms, urinary symptoms or vaginal discharge. abd pain isapparently 10/10 despite not wanting this complaint worked up duringevaluation of tooth pain initially.VS reviewedCVS: RRRLungs: CTABAbd: soft, ND, diffuse mild general TTP, no PSPt presents for evaluation of multiple complaints. Afebrile, nontoxic, HDstable. HCG neg, doubt ectopic. Pelvic exam and cultures performed w/osignificant findings. No significant leukocytosis, JUAN or transaminitis.DOubt vlad, appy, or pancreatitis. I find no indication for imaging atthis time. Pt had to be escorted from ER after she became disruptive whentold she would not receive opiates. F/u to PCP. Symptoms that shouldprompt return to the Emergency Department were discussed and understandingverbalized. Discharged in stable condition.Signature: DANIEL Villanuevaate: 08/16/2017Time: 6:15 Jayna Pinzon MD08/16/17 0621 Normal [facility] Glucose Meteron 05-27-2017 Glucose mass conc 97 mg/dL Normal 70-99 [facility] Comment on above: Performed By: #### G LMET ####[place] [address] Hemogram/Diffon 05-27-2017 Abs Immature Grans 0.05 thou/cmm Normal 0.00-0.05 [facility] Comment on above: Performed By: #### C BCD1 ####[facility] [place] [address] Abs. Baso 0.04 thou/cmm Normal 0.01-0.08 [facility] Comment on above: Performed By: #### C BCD1 ####[place] [address] Abs. Rabun 0.62 thou/cmm Normal 0.27-0.70 [facility] Comment on above: Performed By: #### C BCD1 ####[place] [address] Abs. Neut 6.54 thou/cmm High 1.56-6.13 [facility] Comment on above: Performed By: #### C BCD1 ####[place] [address] Basophils/100 WBC Auto (Bld) 0.4 % Normal [facility] Comment on above: Performed By: #### C BCD1 ####[place] [address] Eosinophils 0.32 thou/cmm High 0.00-0.31 [facility] Comment on above: Performed By: #### C BCD1 ####[place] [address] Eosinophils/100 leukocytes 3.2 % Normal [facility] Comment on above: Performed By: #### C BCD1 ####[place] [address] Erythrocyte distribution width Auto Ratio (RBC) 13.8 % Normal 11.7-14.4 [facility] Comment on above: Performed By: #### C BCD1 ####[place] [address] Erythrocytes (RBC) 4.51 mil/cmm Normal 3.93-5.22 [facility] Comment on above: Performed By: #### C BCD1 ####[place] [address] Hematocrit (HCT) 39.4 % Normal 34.1-44.9 [facility] Comment on above: Performed By: #### C BCD1 ####[place] [address] Hemoglobin mass conc (Bld) 12.8 g/dL Normal 11.2-15.7 [facility] Comment on above: Performed By: #### C BCD1 ####[place] [address] Immature Grans 0.50 % Normal [facility] Comment on above: Performed By: #### C BCD1 ####[place] [address] Lymphocytes 2.47 thou/cmm Normal 1.18-3.74 [facility] Comment on above: Performed By: #### C BCD1 ####[address] [address] Lymphocytes/100 leukocytes 24.6 % Normal [facility] Comment on above: Performed By: #### C BCD1 ####[place] [address] MCH 28.4 pg Normal 25.6-32.2 [facility] Comment on above: Performed By: #### C BCD1 ####[place] [address] MCHC mass conc (RBC) 32.5 % Normal 31.6-34.8 [facility] Comment on above: Performed By: #### C BCD1 ####[place] [address] MCV 87.4 fL Normal 79.4-94.8 [facility] Comment on above: Performed By: #### C BCD1 ####[place] [address] Monocytes/100 leukocytes 6.2 % Normal [facility] Comment on above: Performed By: #### C BCD1 ####[place] [address] Platelet mean volume (PMV) 9.8 fL Normal 9.4-12.3 [facility] Comment on above: Performed By: #### C BCD1 ####[facility] [place], [place] [address] Platelets 270 thou/cmm Normal 182-369 [facility] Comment on above: Performed By: #### C BCD1 ####[facility] [place], [place] [address] RDW SD 43.8 fl Normal 36.4-46.3 [facility] Comment on above: Performed By: #### C BCD1 ####[address] [address] Seg Neutrophil 65.1 % Normal [facility] Comment on above: Performed By: #### C BCD1 ####[address] [address] WBC (Leukocytes) 10.05 thou/cmm High 3.98-10.04 [facility] Comment on above: Performed By: #### C BCD1 ####[address] [address] Lipase Bloodon 05-27-2017 Lipase Blood 151 U/L Normal 73-393 [facility] Comment on above: Performed By: #### L IP ####[address] [address] MDRD GFRon 05-27-2017 eGFR (non-black) mL/min/{1.73_m2} Normal >60mL/m in/1. 73m2 [facility] Comment on above: Result Comment: If t he patient is , multiply the result by 1.210. Performed By: #### G FR ####[address] [address] Vital Signs Date Time Vital Sign Value Performing Clinician Nuria edgar 12-20-2023 14:30-0400 Body temperature 99.1 [degF] Infusion 9 Work Phone: [facility] 12-20-2023 14:30-0400 Diastolic blood pressure 58 mm[Hg] Infusion 9 Work Phone: [facility] 12-20-2023 14:30-0400 Heart rate 91 /min Infusion 9 Work Phone: [facility] 12-20-2023 14:30-0400 Systolic blood pressure 130 mm[Hg] Infusion 9 Work Phone: [facility] 12-06-2023 15:35-0400 Body temperature 98.2 [degF] Infusion 5 Work Phone: [facility] 12-06-2023 15:35-0400 Diastolic blood pressure 76 mm[Hg] Infusion 5 Work Phone: [facility] 12-06-2023 15:35-0400 Heart rate 100 /min Infusion 5 Work Phone: [facility] 12-06-2023 15:35-0400 Systolic blood pressure 156 mm[Hg] Infusion 5 Work Phone: [facility] 12-06-2023 12:15-0400 SaO2% (BldA) [Mass fraction] 100 % Infusion 5 Work Phone: [facility] 10-24-2023 14:01-0400 Body height 162.6 cm Amauri Calhoun BELT MAKER HELPER.AUTOMATIC GRINDER OPERATOR Work Phone: [facility] 10-24-2023 14:01-0400 Body mass index (BMI) [Ratio] 35.74 kg/m2 Amauri Calhoun BELT MAKER HELPER.AUTOMATIC GRINDER OPERATOR Work Phone: [facility] 10-24-2023 14:01-0400 Body weight 94.5 kg Amauri Calhoun BELT MAKER HELPER.AUTOMATIC GRINDER OPERATOR Work Phone: [facility] 09-20-2023 07:36-0400 Body height 162.6 cm Kevin Holloway MD Work Phone: [facility] 09-20-2023 07:36-0400 Body mass index (BMI) [Ratio] 35.02 kg/m2 Kevin Holloway MD Work Phone: [facility] 09-20-2023 07:36-0400 Body weight 92.53 kg Kevin Holloway MD Work Phone: [facility] 09-20-2023 07:36-0400 Diastolic blood pressure 80 mm[Hg] Kevin Holloway MD Work Phone: [facility] 09-20-2023 07:36-0400 Heart rate 94 /min Kevin Holloway MD Work Phone: [facility] 09-20-2023 07:36-0400 Systolic blood pressure 135 mm[Hg] Kevin Holloway MD Work Phone: [facility] 08-25-2023 11:20-0400 Diastolic blood pressure 62 mm[Hg] [employer] M[employer]ER[employer] Julia Shayla Work Phone: [facility] 08-25-2023 11:20-0400 Heart rate 61 /min [employer] M[employer]ER[employer] Julia Shayla Work Phone: [facility] 08-25-2023 11:20-0400 Systolic blood pressure 106 mm[Hg] [employer] M[employer]ER[employer]C Julia Shayla Work Phone: [facility] 10-09-2022 17:04-0400 Heart rate 65 /min [employer]ER[employer] Rosa M Luby Work Phone: [facility] 10-09-2022 16:59-0400 Diastolic blood pressure 58 mm[Hg] [employer] M[employer]ER[employer]C Rosa M Luby Work Phone: [facility] 10-09-2022 16:59-0400 Respiratory rate 18 /min [employer] M[employer]ER[employer]C Rosa M Luby Work Phone: [facility] 10-09-2022 16:59-0400 SaO2% (BldA) [Mass fraction] 99 % KNIT GOODS MENDER-C Rosa M Luby Work Phone: [facility] 10-09-2022 16:59-0400 Systolic blood pressure 124 mm[Hg] [employer] M[employer]C Rosa M Luby Work Phone: [facility] 10-09-2022 14:58-0400 Body height 162.56 cm K[employer]IT [employer] MENDER-C Rosa M Luby Work Phone: [facility] 10-09-2022 14:58-0400 Body temperature 99 [degF] [employer] MENDER-C Rosa M Luby Work Phone: [facility] 10-09-2022 14:58-0400 Body weight 77 kg KNIT GOODS MENDER-C Rosa M Andersen Work Phone: [facility] Encounters Encounter Date Encounter Type Care Provider Facility Start: 02-13-2024 End: 02-13-2024 Refill Moriah Marcus BELT MAKER HELPER.AUTOMATIC GRINDER OPERATOR Work Phone: [facility] Comment on above: Refill Request Start: 02-06-2024 End: 02-06-2024 ambulatory MARY EFE Not Available Start: 01-25-2024 End: 01-30-2024 ambulatory NEERU URMILAINSKI Facility:[facility] Start: 01-25-2024 End: 01-25-2024 Patient encounter procedure Neeru Sifuentes BELT MAKER HELPER.AUTOMATIC GRINDER OPERATOR Work Phone: Urology Comment on above: Urinary hesitancy (P rimary Dx); Frequent UTI Start: 01-24-2024 End: 01-24-2024 Orders Only Lina Ordoñez MD Work Phone: [facility] Comment on above: Attention deficit hy peractivity disorder (ADHD), unspecified ADHD type (Primary Dx); Depression, unspecified depression type Start: 01-09-2024 End: 01-09-2024 ambulatory MARY EFE Not Available Start: 01-07-2024 End: 01-07-2024 Telephone encounter Lina Ordoñez MD Work Phone: Neurology Comment on above: Appointment (Called to assist patient in scheduling pain, psychology, MRIs, and follow-up visit with Dr. Holloway (preferably a Tuesday afternoon and the same day as her MRI). LVM with phone number to call when ready to schedule) Start: 01-04-2024 End: 01-04-2024 ambulatory Kevin Holloway MD Work Phone: [facility] Comment on above: Multiple sclerosis ( HCC) (Primary Dx); Urinary retention; Paraplegia (HCC); Neuropathic pain; Recurrent UTI Start: 01-04-2024 End: 01-04-2024 Telemedicine consultation with patient Kevin Holloway MD Work Phone: [facility] Start: 12-28-2023 Refill Moriah de la torre BELT MAKER HELPER.AUTOMATIC GRINDER OPERATOR Work Phone: [facility] Comment on above: Refill Request Start: 12-21-2023 Refill Aldo Purvis MD Work Phone: [facility] Comment on above: Refill Request Start: 12-20-2023 End: 12-20-2023 ambulatory [facility] [place] [facility] Work Phone: Multiple Sclerosis Comment on above: Progressive multiple sclerosis (HCC) (Primary Dx) Start: 12-19-2023 Refill Poncho Waldron Work Phone: [facility] Comment on above: Refill Request Start: 12-06-2023 End: 12-06-2023 ambulatory [facility] [place] [facility] 5 Work Phone: Multiple Sclerosis Comment on above: Progressive multiple sclerosis (HCC) (Primary Dx) Start: 12-01-2023 Orders Only To tucker MD Work Phone: [facility] Comment on above: Demyelinating diseas e of central nervous system (HCC) (Primary Dx) Forms ([employer] form faxed back to [phone]) Start: 11-23-2023 Refill Moriah de la torre BELT MAKER HELPER.AUTOMATIC GRINDER OPERATOR Work Phone: [facility] Comment on above: Refill Request Start: 11-21-2023 End: 12-22-2023 ambulatory [facility] Start: 11-15-2023 ambulatory Kevin aguilar MD Work Phone: [facility] Comment on above: Anxiety medication Start: 11-07-2023 Refill Aldo Purvis MD Work Phone: [facility] Comment on above: Refill Request Start: 11-04-2023 End: 11-04-2023 ambulatory Vannessa Kruse APRN.AUTOMATIC GRINDER OPERATOR Work Phone: [facility] Comment on above: Multiple sclerosis ( HCC) (Primary Dx) Start: 11-04-2023 End: 11-04-2023 Telemedicine consultation with patient Vannessa Kruse AUTOMATIC GRINDER OPERATOR Work Phone: [facility] Start: 11-03-2023 End: 11-03-2023 ambulatory ALDO PURVIS Facility:[facility] Start: 10-28-2023 E-mail encounter era barney caregiver Aldo Purvis MD Work Phone: Neurology Start: 10-28-2023 Patient encounter procedure Aldo Purvis MD Work Phone: Neurology Comment on above: Appointment Start: 10-28-2023 End: 10-28-2023 ambulatory Aldo Purvis MD Work Phone: [facility] Comment on above: Multiple sclerosis ( HCC) (Primary Dx); Other chronic pain; Progressive multiple sclerosis (HCC); Myelitis (HCC) Start: 10-28-2023 End: 10-28-2023 Telemedicine consultation with patient Aldo Purvis MD Work Phone: [facility] Start: 10-27-2023 Telephone encounter Amauri cuellar APRN.AUTOMATIC GRINDER OPERATOR Work Phone: [facility] Comment on above: Bronze 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 - 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 Patient Question (Susana whiteside is requesting to review recent MRI because she has questions about lesions) Start: 10-25-2023 ambulatory KEVIN BILLYJENNIFER Facilit y:[facility] Start: 10-25-2023 End: 10-25-2023 Subsequent hospital visit by physician Mri [facility] (1.5t) RADIO MRI [facility] Comment on above: Demyelinating diseas e of central nervous system (HCC) [G37.9] Start: 10-24-2023 End: 10-24-2023 ambulatory KEVIN HOLLOWAY Facility:[facility] Start: 10-24-2023 End: 10-24-2023 Patient encounter procedure Amauri Calhoun APRN.AUTOMATIC GRINDER OPERATOR Work Phone: [facility] Comment on above: Myelopathy (HCC) (Pr imary Dx); Spinal cord lesion (HCC); Noble's reflex Start: 10-24-2023 Telephone encounter Aldo Purvis MD Work Phone: [facility] Comment on above: Patient Question (Ne ed something for MRI's tomorrow) Start: 10-21-2023 Telephone encounter Amauri Skin ner BELT MAKER HELPERCarinAUTOMATIC GRINDER OPERATOR Work Phone: [facility] Comment on above: [facility] - O ther Start: 10-21-2023 End: 11-21-2023 ambulatory JULIA Darling [facility] Start: 10-18-2023 Telephone encounter Self [facility] Comment on above: Triage (Internal Ref erral) Start: 10-11-2023 End: 10-12-2023 ambulatory [facility] Start: 10-07-2023 End: 10-08-2023 ambulatory [facility] Start: 10-07-2023 End: 10-07-2023 Subsequent hospital visit by physician Provider Unknown [facility] Start: 10-04-2023 End: 10-05-2023 ambulatory Aldo Purvis MD Work Phone: [facility] Comment on above: Visit today Demyelinating diseas e of central nervous system (HCC) (Primary Dx); Spinal cord lesion (HCC) Start: 10-04-2023 E-mail encounter era barney caregiver Aldo Purvis MD Work Phone: [facility] Start: 10-04-2023 End: 10-04-2023 Telemedicine consultation with patient Kevin Amie BROUSSARD Work Phone: [facility] Start: 09-30-2023 Telephone encounter Aldo Purvis MD Work Phone: [facility] Start: 09-30-2023 End: 10-01-2023 ambulatory PROVIDER UNKNOWN [facility] Start: 09-28-2023 End: 09-29-2023 ambulatory PROVIDER UNKNOWN [facility] Start: 09-23-2023 ambulatory [facility] Comment on above: Questionnaire Submis josé luis Start: 09-23-2023 E-mail encounter fro m caregiver [facility] Provider Medical Records Start: 09-22-2023 End: 09-22-2023 Evaluation and management of inpatient ALDO PURVIS Facility:[facility] Start: 09-22-2023 End: 09-22-2023 ambulatory ALDO PURVIS Facility:[facility] Start: 09-20-2023 End: 09-27-2023 Evaluation and management of inpatient KLAUS STEVENSON Facility:[facility] Start: 09-20-2023 End: 09-20-2023 ambulatory DARIO GARCIA Facility:[facility] Start: 09-20-2023 End: 09-20-2023 Patient encounter procedure Kevin Holloway MD Work Phone: [facility] Comment on above: Myelopathy (HCC) (Pr imary Dx); Urinary hesitancy; Spinal cord lesion (HCC) Start: 09-16-2023 Telephone encounter Aldo Purvis MD Work Phone: [facility] Start: 09-15-2023 End: 09-15-2023 ambulatory Dario Garcia Facility:[facility] Start: 09-15-2023 End: 09-15-2023 ambulatory KNIT GOODS MENDER-C Julia Chen Work Phone: [facility] Work Phone: Start: 09-15-2023 End: 09-15-2023 Patient encounter procedure KNIT GOODS MENDER-C Julia Chen Work Phone: [facility] [place] Work Phone: Start: 09-15-2023 End: 09-15-2023 ambulatory DARIO GARCIA Not Available Start: 09-07-2023 End: 09-08-2023 ambulatory CHELO BERMAN [facility] Start: 08-26-2023 End: 09-19-2023 ambulatory Julia Chen Facility:[facility] Start: 08-25-2023 End: 08-25-2023 ambulatory Julia Chen Facility:[facility] Start: 08-25-2023 End: 08-25-2023 ambulatory KNIT GOODS MENDER-C Julia Chen Work Phone: [facility] Work Phone: Start: 08-25-2023 End: 08-25-2023 Discharged Recurring KNIT GOODS MENDER-C Julia Chen Work Phone: [facility]-Infusion Therapy - [facility] Work Phone: Start: 08-22-2023 ambulatory [facility] Start: 08-22-2023 End: 08-22-2023 ambulatory CHELO ANAHI [facility] Start: 04-06-2023 End: 04-07-2023 Evaluation and management of inpatient Julia Chen Facility:[facility] Start: 04-06-2023 End: 04-06-2023 ambulatory SHANNON MARSH Not Available Start: 12-24-2022 End: 12-25-2022 ambulatory Dario Garcia Facility:[facility] Start: 12-09-2022 End: 12-09-2022 ambulatory Dario Garcia Facility:[facility] Start: 12-09-2022 End: 12-09-2022 ambulatory KNIT GOODS MENDER-C Rosa M Andersen Work Phone: [facility] Work Phone: Start: 12-09-2022 End: 12-09-2022 Patient encounter procedure KNIT GOODS MENDER-C Rosa M Andersen Work Phone: [facility] [place] Work Phone: Start: 12-08-2022 Registered Recurring KNIT GOODS MENDER-C Rae Andersen Work Phone: [facility]-Physical Therapy [facility] [place] Start: 10-20-2022 End: 10-20-2022 ambulatory Julia Chen Facility:[facility] Start: 10-20-2022 End: 10-20-2022 ambulatory KNIT GOODS MENDER-C Rosa M Andersen Work Phone: [facility] Work Phone: Start: 10-20-2022 End: 10-20-2022 Patient encounter procedure KNIT GOODS MENDER-C Rosa M Andersen Work Phone: [facility] [place] Work Phone: Start: 10-15-2022 End: 10-16-2022 ambulatory JULIA SHAYLA Facility:[facility] Start: 10-12-2022 End: 10-13-2022 ambulatory JULIA SHAYLA Facility:[facility] Start: 10-09-2022 End: 10-09-2022 Emergency department patient visit Tasneem Garcia Facility:[facility] Start: 10-09-2022 End: 10-09-2022 Emergency department patient visit NICK Andersen Work Phone: [facility]-Emergency Room Work Phone: Start: 10-05-2022 End: 10-05-[address] CHARLES MEHTA Facility:[facility] Start: 10-04-2022 End: 10-05-2022 ambulatory JULIA SHAYLA Facility:[facility] Start: 09-15-2022 End: 09-16-2022 ambulatory JULIAJORGE LOZANOMER Facility:[facility] Start: 09-10-2022 End: 09-11-2022 ambulatory JULIAJORGE LOZANOMER Facility:[facility] Start: 07-27-2019 Patient encounter procedure ROSIBEL Rod [facility] Ambulatory Start: 05-27-2017 End: 05-28-2017 Emergency department patient visit ROBIN KOY Facility:[facility] Procedures Date Procedure Procedure Detail Performing Clinician Start: 01-25-2024 Urnls dip stick/tabl et rgnt auto w/o microscopy Bulk Order Provider Start: 12-06-2023 Assay of gammaglobul in iga igd igg igm each To Vyas MD Work Phone: Start: 10-25-2023 Mri brain brain stem w/o w/contrast material Aldo Purvis MD Work Phone: Start: 10-07-2023 Basic metabolic pane l calcium total Bhavik Andree Stanley MD Work Phone: Start: 04-06-2023 Antibody screen Rafa Garcia Comment on above: Result Comment: PERF ORMED BY: [facility] [address] [place] [address] PATHOLOGIST GARNISHMENT SPECIALIST ANU RICK M.D. Start: 12-09-2022 Investigation of transfusion reaction NICK Andersen Work Phone: H/O: section Status pos t primary low transverse section KNIT GOODS MENDER-C Julia Shayla Work Phone: Plan of Treatment Date Care Activity Detail Author Start: 04-07-2033 Urine microalbumin profile DTaP,Tdap,Td Vaccine (6 - Td or Tdap) [facility] Start: 06-19-2024 End: 06-19-2024 ambulatory 06/19/2024 8:00 AM [facility] Multiple Sclerosis [address] [address] Multiple [facility]clerosis [facility] Comment on above: Multiple Sclerosis Start: 06-02-2024 End: 12-30-2024 MR Brain WO and W contrast IV MRI BRAIN WO/W IVCON Radiology Routine Demyelinating disease of central nervous system (HCC) Expected: 06/02/2024 (Approximate), Expires: 12/30/2024 [facility] Comment on above: Expected: 06/02/2024 (Approximate), Expi res: 12/30/2024 Start: 06-02-2024 End: 12-30-2024 MR Cervical spine WO and W contrast IV MRI CERVICAL SPINE WO/W IVCON Radiology Routine Demyelinating disease of central nervous system (HCC) Expected: 06/02/2024 (Approximate), Expires: 12/30/2024 [facility] Work Phone: Comment on above: Expected: 06/02/2024 (Approximate), Expi res: 12/30/2024 Start: 06-02-2024 End: 12-30-2024 MR Thoracic spine WO and W contrast IV MRI THORACIC SPINE WO/W IVCON Radiology Routine Demyelinating disease of central nervous system (HCC) Expected: 06/02/2024 (Approximate), Expires: 12/30/2024 [facility] Comment on above: Expected: 06/02/2024 (Approximate), Expi res: 12/30/2024 Start: 03-14-2024 End: 03-14-2024 ambulatory 03/14/2024 12:00 PM EDT [facility] [address] [id number] Kevin Holloway MD [address] [place] [address] [facility] Comment on above: ms Start: 02-29-2024 End: 02-29-2024 Patient encounter procedure 02/29/2024 11:15 AM EDT Office Visit Urology [address] [address] Brianna Angel MD [address] [place] [address] Urinary hesitance per staff msg Urology Comment on above: Urinary hesitance per staff msg Start: 02-29-2024 End: 02-29-2024 Nursing evaluation of patient and report 02/29/2024 10:00 AM EDT Nurse Visit Urology [address] [address] [employer] [address] [place] [id number] [facility] Urology Comment on above: [employer] [facility] Start: 02-03-2024 End: 02-03-2024 Patient encounter procedure 02/03/2024 2:30 PM EDT Office Visit Urology [address] [address] Urol, Nurse [facility] [address] [place] [address] [facility] Urology Comment on above: [employer] Start: 01-25-2024 End: 01-25-2024 Patient encounter procedure 01/25/2024 1:00 PM EDT Office Visit Urology [address] [address] Neeru Sifuentes APRN.AUTOMATIC GRINDER OPERATOR [address] [place] [address] Urinary retention Urology Comment on above: Urinary retention Start: 01-22-2024 Covid-19 Vaccine () Covid-19 Vaccine () [facility] Start: 01-22-2024 Covid-19 Vaccine ( season) Covid-19 Vaccine ( season) [facility] Start: 01-22-2024 Influenza vaccination [facility] Start: 01-04-2024 End: 01-04-2024 Follow-up encounter 01/04/2024 11:00 AM EDT [address] [phone] Kevin Holloway MD [address] [place] [address] Follow up [facility] Comment on above: Follow up Start: 12-22-2023 Influenza vaccination Flu vaccine (Season Ended) [facility] Start: 12-20-2023 End: 12-20-2023 [facility] [address] [place] [address] [facility] Comment on above: [facility] Start: 12-06-2023 End: 12-06-2023 [facility] [address] [place] [address] [facility] Comment on above: [facility] Start: 11-30-2023 End: 11-30-2023 Follow-up encounter 11/30/2023 11:00 AM EDT [address] [address] Kevin Holloway MD [address] [place] [address] Follow up [facility] Comment on above: Follow up Start: 11-16-2023 End: 11-16-2023 Follow-up encounter 11/16/2023 7:25 AM EDT [address] [address] Kevin Holloway MD [address] [place] [address] Follow up [facility] Comment on above: Follow up Start: 10-28-2023 End: 01-27-2024 BLOOD TB SCREEN BLOOD TB SCREEN Lab Routine Other chronic pain Expected: 10/28/2023, Expires: 01/27/2024 [facility] Comment on above: Expected: 10/28/2023, Expires: Start: 10-28-2023 End: 01-27-2024 CBC W Auto Differential panel - Blood COMPLETE BLOOD COUNT AND DIFFERENTIAL Lab Routine Other chronic pain Expected: 10/28/2023, Expires: 01/27/2024 [facility] Comment on above: Expected: 10/28/2023, Expires: Start: 10-28-2023 End: 01-27-2024 Chronic hepatitis differentiation between hepatitis B and C virus panel - Serum or Plasma HEP REMOTE PANEL BL Lab Routine Other chronic pain Expected: 10/28/2023, Expires: 01/27/2024 [facility] Comment on above: Expected: 10/28/2023, Expires: Start: 10-28-2023 End: 01-27-2024 Comprehensive metabolic 2000 panel - Serum or Plasma COMPREHENSIVE METABOLIC PANEL Lab Routine Other chronic pain Expected: 10/28/2023, Expires: 01/27/2024 [facility] Comment on above: Expected: 10/28/2023, Expires: Start: 10-28-2023 End: 01-27-2024 IMMUNOGLOBULINS,IGG,IGA,I GM IMMUNOGLOBULINS,IGG,IGA,I GM Lab Routine Other chronic pain Expected: 10/28/2023, Expires: 01/27/2024 [facility] Work Phone: Comment on above: Expected: 10/28/2023, Expires: Start: 10-28-2023 End: 01-27-2024 JCV ANTIBODY & INDEX WITH REFLEX JCV ANTIBODY & INDEX WITH REFLEX Lab Routine Other chronic pain Expected: 10/28/2023, Expires: 01/27/2024 [facility] Comment on above: Expected: 10/28/2023, Expires: Start: 10-28-2023 End: 01-27-2024 VARICELLA ZOSTER IGG VARICELLA ZOSTER IGG Lab Routine Other chronic pain Expected: 10/28/2023, Expires: 01/27/2024 [facility] Comment on above: Expected: 10/28/2023, Expires: Start: 10-28-2023 End: 10-28-2023 Follow-up encounter 10/28/2023 1:00 PM EDT [facility] [address] [address] Aldo Purvis MD [address] [place] [address] Follow Up, MRI results [facility] Comment on above: Follow Up, MRI results Start: 10-25-2023 End: 10-25-2023 Patient encounter procedure 10/25/2023 2:40 PM EDT Appointment RADIO MRI [facility] [address] [place] [address] MRI BRAIN WO/W IVCON RADIO MRI [facility] Comment on above: MRI BRAIN WO/W IVCON Start: 10-25-2023 End: 10-25-2023 Patient encounter procedure RADIO MRI [facility] Comment on above: MRI THORACIC SPINE WO/W IVCON MRI CERVICAL SPINE W O/W IVCON Start: 10-24-2023 End: 10-24-2023 Patient encounter procedure 10/24/2023 2:00 PM EDT Office Visit [facility] [address] [place] [address] [place] [address] Amauri Calhoun, BELT MAKER HELPER.AUTOMATIC GRINDER OPERATOR [address] [place] [address] Spinal Lesion [facility] Comment on above: Spinal Lesion Start: 10-13-2023 End: 10-13-2023 ambulatory 10/13/2023 2:40 PM EDT [facility] Internal Medicine [facility] [address] [place] [address] Julia Lombardo PA-C [address] [place] [address] post-hospitalization Internal Medicine [facility] Comment on above: post-hospitalization Start: 10-04-2023 End: 10-04-2023 ambulatory 10/04/2023 9:00 AM EDT [facility] [address] [address] Kevin Holloway MD [address] [place] [address] Myelopathy (HCC) [G95.9] [facility] Comment on above: Myelopathy (HCC) [G95.9] Start: 10-04-2023 End: 10-04-2023 Patient encounter procedure 10/04/2023 9:00 AM EDT Office Visit [address] [address] Kevin Holloway MD [address] [place] [address] Myelopathy (HCC) [G95.9] [facility] Comment on above: Myelopathy (HCC) [G95.9] Start: 10-03-2023 End: 10-03-2023 ambulatory 10/03/2023 1:40 PM EDT [facility] Internal Medicine [facility] [address] [place] [address] Julia Lomabrdo PA-C [address] [place] [address] post-hospitalization Internal Medicine [facility] Comment on above: post-hospitalization Start: 09-30-2023 End: 09-30-2023 Patient encounter procedure 09/30/2023 2:30 PM EDT Office Visit Urology [address] [address] Les Benito PA [address] [address] Urinary hesitancy Urology Comment on above: Urinary hesitancy Start: 09-20-2023 End: 12-20-2023 ANTI NEUTRO CYTO AB ANTI NEUTRO CYTO AB Lab Routine Myelopathy (HCC) Expected: 09/20/2023, Expires: 12/20/2023 [facility] Comment on above: Expected: 09/20/2023, Expires: Start: 09-20-2023 End: 12-20-2023 Borrelia burgdorferi IgG and IgM panel - Serum LYME AB LATE >30 DAYS SYMPTOMS Lab Routine Myelopathy (HCC) Expected: 09/20/2023, Expires: 12/20/2023 [facility] Comment on above: Expected: 09/20/2023, Expires: Start: 09-20-2023 End: 12-20-2023 C reactive protein [Mass/volume] in Serum or Plasma C-REACTIVE PROTEIN Lab Routine Myelopathy (HCC) Expected: 09/20/2023, Expires: 12/20/2023 [facility] Comment on above: Expected: 09/20/2023, Expires: Start: 09-20-2023 End: 12-20-2023 TURNER AND FORMER AUTOMATIC DEMYELINATING DISEASE EVALUATION, SERUM TURNER AND FORMER AUTOMATIC DEMYELINATING DISEASE EVALUATION, SERUM Lab Routine Myelopathy (HCC) Expected: 09/20/2023, Expires: 12/20/2023 [facility] Work Phone: Comment on above: Expected: 09/20/2023, Expires: Start: 09-20-2023 End: 12-20-2023 Cobalamin (Vitamin B12) [Mass/volume] in Serum or Plasma VITAMIN B12 Lab Routine Myelopathy (HCC) Expected: 09/20/2023, Expires: 12/20/2023 [facility] Comment on above: Expected: 09/20/2023, Expires: Start: 09-20-2023 End: 12-20-2023 Comprehensive metabolic 2000 panel - Serum or Plasma COMPREHENSIVE METABOLIC PANEL Lab Routine Myelopathy (HCC) Expected: 09/20/2023, Expires: 12/20/2023 [facility] Comment on above: Expected: 09/20/2023, Expires: Start: 09-20-2023 End: 12-20-2023 COPPER BLOOD COPPER BLOOD Lab Routine Myelopathy (HCC) Expected: 09/20/2023, Expires: 12/20/2023 [facility] Comment on above: Expected: 09/20/2023, Expires: Start: 09-20-2023 End: 12-20-2023 DNA double strand Ab [Units/volume] in Serum by Immunoassay DNA AB DS + CONF BLD Lab Routine Myelopathy ([facility]) Expected: 09/20/2023, Expires: 12/20/2023 [facility] Comment on above: Expected: 09/20/2023, Expires: Start: 09-20-2023 End: 12-20-2023 Erythrocyte sedimentation rate SEDIMENTATION RATE, WESTERGREN Lab Routine Myelopathy ([facility]) Expected: 09/20/2023, Expires: 12/20/2023 [facility] Comment on above: Expected: 09/20/2023, Expires: Start: 09-20-2023 End: 12-20-2023 Extractable nuclear Ab panel - Serum ANTI KERRI ID Lab Routine Myelopathy ([facility]) Expected: 09/20/2023, Expires: 12/20/2023 [facility] Comment on above: Expected: 09/20/2023, Expires: Start: 09-20-2023 End: 12-20-2023 HIV 1+2 Ab [Presence] in Serum or Plasma by Immunoassay HIV 1/2 COMBO WITH REFLEX TO DIFFERENTIATION Lab Routine Myelopathy ([facility]) Expected: 09/20/2023, Expires: 12/20/2023 [facility] Comment on above: Expected: 09/20/2023, Expires: Start: 09-20-2023 End: 12-20-2023 Homocysteine [Moles/volume] in Serum or Plasma HOMOCYSTEINE Lab Routine Myelopathy ([facility]) Expected: 09/20/2023, Expires: 12/20/2023 [facility] Comment on above: Expected: 09/20/2023, Expires: Start: 09-20-2023 End: 12-20-2023 HTLV AB SCREEN HTLV AB SCREEN Lab Routine Myelopathy ([facility]) Expected: 09/20/2023, Expires: 12/20/2023 [facility] Comment on above: Expected: 09/20/2023, Expires: Start: 09-20-2023 End: 12-20-2023 Methylmalonate [Moles/volume] in Serum or Plasma METHYLMALONIC ACID Lab Routine Myelopathy (HCC) Expected: 09/20/2023, Expires: 12/20/2023 [facility] Comment on above: Expected: 09/20/2023, Expires: Start: 09-20-2023 End: 12-20-2023 Nuclear Ab [Presence] in Serum by Immunoassay CANDY PANEL BLOOD SCRN Lab Routine Myelopathy ([facility]) Expected: 09/20/2023, Expires: 12/20/2023 [facility] Comment on above: Expected: 09/20/2023, Expires: Start: 09-20-2023 End: 12-20-2023 SYPHILIS TOTAL W/REFLEX SYPHILIS TOTAL W/REFLEX Lab Routine Myelopathy ([facility]) Expected: 09/20/2023, Expires: 12/20/2023 [facility] Comment on above: Expected: 09/20/2023, Expires: Start: 09-20-2023 End: 09-20-2023 Patient encounter procedure 09/20/2023 7:30 AM EDT Office Visit [address] [address] Kevin Holloway MD [address] [place] [address] TM (Transverse Myelitis) [facility] Comment on above: TM (Transverse Myelitis) Start: 09-15-2023 [facility] Start: 06-29-2023 Hemoglobin A1c measurement HbA1C [facility] Start: 05-23-2023 Behavioral Health Screening Behavioral Health Screening [facility] Start: 01-21-2023 Covid-19 Vaccine ( season) Covid-19 Vaccine () [facility] Start: 12-09-2022 Aerobic Culture Aerobic Culture [facility] Start: 12-09-2022 Anaerobic Culture Anaerobic Culture [facility] Start: 12-09-2022 Cerebrospinal fluid culture [facility] Start: 12-09-2022 Borrelia burgdorferi DNA assay [facility] Start: 12-09-2022 [facility] Start: 10-20-2022 [facility] Start: 2019 Screening for malignant neoplasm of cervix [facility] Start: 2017 DTaP/Tdap/Td vaccine (1 - Tdap) DTaP/Tdap/Td vaccine (1 - Tdap) [facility] Start: 2017 Hepatitis B Vaccine (1 of 3 - 19+ 3-dose series) Hepatitis B Vaccine (1 of 3 - 19+ 3-dose series) [facility] Start: 2017 Urine microalbumin profile DTaP,Tdap,Td Vaccine (1 - Tdap) [facility] Start: 09-10-2016 Glaucoma screening Dilated Retinal Exam [facility] Start: 2016 Annual PCP Team Chronic Disease Visit Annual PCP Team Chronic Disease Visit [facility] Start: 2016 Anxiety Screening Anxiety Screening [facility] Start: 2016 Depression Screening Depression Screening [facility] Start: 2016 Hepatitis B surface antibody level LDL Cholesterol [facility] Start: 2016 Hepatitis C screening Hepatitis C Screening [facility] Start: 2016 HIV screening HIV Screening [facility] Start: 2013 HPV Vaccine (1 - 3-dose series) HPV Vaccine (1 - 3-dose series) [facility] Start: 2012 Peds To Adult Transition Annual Assessment Peds To Adult Transition Annual Assessment [facility] Start: 2010 Peds To Adult Transition Initial Discussion Peds To Adult Transition Initial Discussion [facility] Start: 2008 Diabetic foot examination Diabetic Foot Exam [facility] Start: 2008 Hepatitis B screening Urine Albumin:Creatinine Ratio [facility] Start: 2004 Pneumococcal vaccination Pneumococcal Vaccine (1 of 2 - PCV) [facility] Start: 1998 COVID-19 Vaccine (#1) COVID-19 Vaccine (#1) [place] Albumin [Mass/volume ] in Cerebral spinal fluid [facility] Albumin [Mass/volume ] in Serum or Plasma [facility] Albumin/Protein.tota l in Cerebral spinal fluid by Electrophoresis [facility] Angiotensin converti ng enzyme [Enzymatic activity/volume] in Cerebral spinal fluid [facility] Aquaporin 4 water ch becky IgG Ab [Units/volume] in Serum or Plasma by Immunoassay [facility] Arsenic measurement [facility] Beta globulin/Protein.total in Cerebral spinal fluid by Electrophoresis [facility] Borrelia burgdorferi Ab [Interpretation] in Serum [facility] Borrelia burgdorferi IgG Ab [Presence] in Serum or Plasma by Immunoassay [facility] Borrelia burgdorferi IgG+IgM Ab [Presence] in Serum by Immunoassay [facility] Borrelia burgdorferi IgM Ab [Presence] in Serum or Plasma by Immunoassay [facility] Cerebrospinal fluid IgG ratio and IgG index [facility] End: 10-19-2024 CT Abdomen and Pelvis W contrast IV CT ABD/PEL W IVCON Radiology Routine Myelopathy (HCC) 1 Occurrences starting 09/20/2023 until 10/19/2024 [facility] Comment on above: 1 Occurrences starting 09/20/2023 until 10/19/2024 End: 10-19-2024 CT Chest W contrast IV CT CHEST W IVCON Radiology Routine Myelopathy (HCC) 1 Occurrences starting 09/20/2023 until 10/19/2024 [facility] Comment on above: 1 Occurrences starting 09/20/2023 until 10/19/2024 Electrophoresis: [id number] [facility] Electrophoresis: [id number] [facility] FLUROURODYNAMICS WITH EMG FLUROU RODYNAMICS WITH EMG Procedures Routine Urinary hesitancy Ordered: 01/25/2024 [facility] Work Phone: Comment on above: Ordered: 01/25/2024 Gamma globulin/Protein.total in Cerebral spinal fluid by Electrophoresis [facility] IgG [Mass/volume] in Cerebral spinal fluid [facility] IgG [Mass/volume] in Serum or Plasma [facility] IgG clearance/Albumi n clearance [Ratio] in Serum and CSF [facility] IgG synthesis rate [Mass/time] in Serum and CSF by calculation [facility] Laboratory data interpretation [facility] Mercury [Mass/volume ] in Blood [facility] End: 11-02-2024 MR Brain WO and W contrast IV MRI BRAIN WO/W IVCON Radiology Routine Demyelinating disease of central nervous system (HCC) 1 Occurrences starting 10/04/2023 until 11/02/2024 [facility] Work Phone: Comment on above: 1 Occurrences starting 10/04/2023 until 11/02/2024 End: 11-02-2024 MR Cervical spine WO and W contrast IV MRI CERVICAL SPINE WO/W IVCON Radiology Routine Demyelinating disease of central nervous system (HCC) 1 Occurrences starting 10/04/2023 until 11/02/2024 [facility] Comment on above: 1 Occurrences starting 10/04/2023 until 11/02/2024 End: 11-02-2024 MR Thoracic spine WO and W contrast IV MRI THORACIC SPINE WO/W IVCON Radiology Routine Demyelinating disease of central nervous system (HCC) 1 Occurrences starting 10/04/2023 until 11/02/2024 [facility] Comment on above: 1 Occurrences starting 10/04/2023 until 11/02/2024 End: 03-13-2025 OCT NEURO INST OCT NEURO INST OPHT Imaging Routine Myelopathy (HCC) 1 Occurrences starting 09/20/2023 until 03/13/2025 [facility] Comment on above: 1 Occurrences starting 09/20/2023 until 03/13/2025 Patient Education Paresthesia (DC) [facility] Work Phone: Patient referral [facility] Work Phone: Protein [Mass/volume ] in Cerebral spinal fluid [facility] Protein fractions.oligoclonal bands.intrathecal [Presence] in Serum and CSF [facility] RF Guidance for inje ction of Lumbar spine IR LUMBAR PUNCTURE DIAGNOSTIC ([facility]) Radiology Routine Myelopathy (HCC) Ordered: 09/20/2023 [facility] Comment on above: Ordered: 09/20/2023 Transthyretin measurement [facility] Immunizations Immunization Date Immunization Notes Care Provider Fa cili 04-07-2023 tetanus toxoid, redu everett diphtheria toxoid, and acellular pertussis vaccine, adsorbed [employer] Julia Chen Work Phone: [facility] 03-12-2015 influenza virus vaccine, unspecified formulation Kevin Holloway MD Work Phone: [facility] Payers Date Payer Category Payer Medicaid [place] [facility] MEDICA[facility] [id number] 2023-Present [phone] [address] [place] [address] Medicaid [id number] 2022 Self-pay [id number] 1998 Unknown [id number] 2.16.840.1.063689.3.579.2.593 1998 Unknown [id number] 2.16.840.1.816949.3.579.2.593 1998 Unknown [id number] 2.16.840.1.480769.3.579.2.593 1998 Unknown [id number] 2.16.840.1.960765.3.579.2.593 1998 Unknown [id number] 2.16.840.1.119484.3.579.2.593 1998 Unknown [id number] 2.16.840.1.043914.3.579.2.593 1998 Unknown [id number] 2.16.840.1.700661.3.579.2.1286 1998 Unknown [id number] 2.16.840.1.410562.3.579.2.1286 1998 Unknown [id number] 2.16.840.1.311306.3.579.2.1286 1998 Unknown [id number] 2.16.840.1.426057.3.579.2.718 1998 Unknown [id number] 2.16.840.1.401732.3.579.2.177 1998 Unknown [id number] 2.16.840.1.894289.3.579.2.177 1998 Unknown [id number] 2.16.840.1.740294.3.579.2.177 1998 Unknown [id number] 2.16.840.1.406255.3.579.2.177 1998 Unknown [id number] 2.16.840.1.931330.3.579.2.177 1998 Unknown [id number] 2.16.840.1.825975.3.579.2.1286 1998 Unknown [id number] 2..840.1.659413.3.579.2.1286 1998 Unknown [id number] 2.840.1.382239.3.579.2.1286 1998 Unknown [id number] 2.840.1.178621.3.579.2.1259 1998 Unknown [id number] 2.840.1.942794.3.579.2.1259 1998 Unknown [id number] 2.840.1.545465.3.579.2.9 1998 Unknown [id number] 2.840.1.982161.3.579.2.1259 1959 Medicaid [id number] 1961 Self-pay [id number] Medicaid [id number] Unknown [id number] 2.16840.1.747582.3.579.2.531 Unknown [id number] 2.16840.1.193350.3.579.2.531 Unknown [id number] 2.16.840.1.229363.3.579.2.531 Unknown [id number] 2.16840.1.382763.3.579.2.531 Unknown [id number] 2.16840.1.145811.3.579.2.531 Unknown [id number] 2.16.840.1.399081.3.579.2.531 Unknown [id number] 2.16.840.1.447784.3.579.2.531 Social History Date Type Detail Facility Start: 12-05-2019 End: 12-04-2021 Tobacco smoking status NHIS Smoker (finding) [facility] Start: 2000 Sex Assigned At Female F [facility] Start: 04-06-2023 End: 09-20-2023 Tobacco smoking status COIS Ex-smoker (finding) [facility] Start: 11-19-2017 End: 09-20-2023 History of tobacco use [facility] Start: 09-11-2015 Tobacco smoking stat us [facility] Smokes tobacco daily [facility] Start: 12-05-2019 End: 12-04-2021 History of tobacco use Cigarette Smoker [facility] Start: 09-11-2015 End: 09-20-2023 Cigarettes smoked current (pack per day) - Reported 0.5 [facility] Start: 09-11-2015 End: 09-20-2023 Tobacco use and exposure Smokeless tobacco non-user [facility] Start: 05-27-2017 End: 01-25-2024 Alcohol intake Current drinker of alcohol (finding) [facility] Start: 05-27-2017 Alcohol Comment occassionally [facility] Start: 2000 Sex Assigned At Not on file [facility] [place] Adult Depression Screening Assessment 1 [facility] Has the [employer], or [employer] threatened to shut off services in your home in past 12Mo No [facility] Work Phone: (I/We) worried juanita burgess (my/our) food would run out before (I/we) got money to buy more. Never true [facility] Are you now , , , , never or living with a partner? Living with partner [facility] How often to you hav e a drink containing alcohol? Monthly or less [facility] How many standard drinks containing alcohol do you have on a typical day? 1 or 2 [facility] How often do you hav e 6 or more drinks on 1 occasion? Never [facility] How hard is it for y ou to pay for the very basics like food, housing, medical care, and heating Not very hard [facility] Do you feel stress - tense, restless, nervous, or anxious, or unable to sleep at night because your mind is troubled all the time - these days [OSQ] Only a little [facility] Tobacco smoking stat us NHIS Tobacco smoking consumption unknown [facility] Clinical Notes 10-05-2022 to 02-13-2024 Telephone Encounter - Karmen Jon - 02/13/2024 1:06 PM EDTTelephone Encounter - Karmen Jon - 02/13/2024 1:06 PM EDTPatient Ryan Rosen OCCA - 01/25/2024 1:21 PM EDT Note Date & Type Note Facility 02-13-2024 Telephone encounter Note Source : call from patient requesting refill. Delivery : e-script Requested Prescriptions Pending Prescriptions Disp Refills nortriptyline (PAMELOR) 10 mg capsule 120 capsule 2 Sig: Take 2 capsules by mouth two times a day. DX : Patient last seen 11-04-23 Next Appointment : Karmen Jon [facility] Work Phone: 02-13-2024 Miscellaneous Notes Source : call from patient requesting refill. Delivery : e-script Requested Prescriptions Pending Prescriptions Disp Refills nortriptyline (PAMELOR) 10 mg capsule 120 capsule 2 Sig: Take 2 capsules by mouth two times a day. DX : Patient last seen 11-04-23 Next Appointment : Karmen Jon documented in this encounter [facility] 01-25-2024 Instructions Neeru Sifuentes APRN.CNP - 01/25/2024 2:03 PM EDT We discussed risk factors for recurrent UTI in females and rationale for lifestyle modifications/management including increased fluid intake (2-3 L/day), pre and post coital voiding if applicable, maintaining good bowel regimen, maintaining good hygiene practices (wipe front to back; wearing cotton underwear, avoiding tight fitting, non-breathable material), use of Probiotics and D-Mannose Recommend over the counter probiotics and D-Mannose (2,000 mg/day) for UTI prevention Will coordinate urodynamics testing with follow up visit for further evaluation documented in this encounter [facility] 01-25-2024 Nurse Note Post Void Residual done on patient with 36 cc residual volume remaining. notified. AGATA Molina [facility] 01-25-2024 Nurse Note Post Void Residual done on patient with 36 cc residual volume remaining. notified. AGATA Molina documented in this encounter [facility] 01-25-2024 History of Present illness Narrative Chief Complaint: urinary hesitancy HPI: Ladi Bernstein is a 23 year old female with history of ADHD, depression, endometriosis, multiple sclerosis (diagnosed October 2022) who presents for evaluation of urinary hesitancy and frequent UTI's. Reports having 2-3 UTI's in the past 5-6 months- she feels like UTI's seem to correlate with recent immunosuppression Rx for MS. Typical UTI symptoms include dysuria, increased urinary urgency/frequency, suprapubic discomfort. Of note, she is being treated with antibiotics locally based on symptoms- no cultures checked per patient. Has been taking an OTC cranberry supplement which seems to minimize symptoms No UTI symptoms today Also notes urinary hesitancy- ongoing for past 5-6 months. Denies episodes of acute retention. Other LUTS include urinary urgency and some dribbling. Will have to sit on the toilet longer- sometimes double voiding. No flank pain. Prior to current symptoms- denies any significant urologic history. No change in bowel habits MS symptoms include generalized weakness, numbness, muscle spasms, heat intolerance. States she is ambulatory, although slows down towards the end of the day- then has shuffled gait. Uses wheelchair only in certain situations. Does seated cardio work out routine. ANNEMARIE: Sometimes (daily) URGENCY: Yes UI: Yes PADS: No FREQUENCY: ~3 hours NOCTURIA: 0 per night STRAINING TO VOID: Yes EMPTIES COMPLETELY: No UTI: 3 past 12 months SEXUALLY ACTIVE: Yes Post-menopause: no Have you had a hysterectomy:NO Postmenopausal bleeding:Not applicable HEMATURIA HX: No GI: +hx of constipation improved with diet changes Do you have a history of any diagnosed back or Neurological problems:YES PSH: excision endometriosis; ; lap vlad; tonsillectomy LABS Creatinine Date Value Ref Range Status 11/03/2023 0.87 0.58 - 0.96 mg/dL Final 09/26/2023 0.77 0.58 - 0.96 mg/dL Final 09/25/2023 0.80 0.58 - 0.96 mg/dL Final 09/24/2023 0.87 0.58 - 0.96 mg/dL Final IMAGING CT ABD/PEL W IVCON 09/20/2023 IMPRESSION: No evidence of malignancy in the abdomen/pelvis. Kidneys: No mass, calculus or hydronephrosis. Probable parapelvic cysts in the upper pole of the left kidney. REVIEW OF SYSTEMS GENERAL:Negative for significant weight loss, fever, SEE HPI GENITOURINARY: See HPI The remainder of the ROS was negative. HISTORIES PAST MEDICAL HISTORY No date: ADHD (attention deficit hyperactivity disorder) No date: Depression No date: Endometriosis FAMILY HISTORY Problem Relation Age of Onset Diabetes Father Glaucoma Father Multiple Sclerosis No Family History SOCIAL HISTORY Social History Tobacco Use Smoking status: Former Current packs/day: 0.00 Average packs/day: 0.5 packs/day for 2.0 years (1.0 ttl pk-yrs) Types: Cigarettes Start date: 12/05/2019 Quit date: 12/04/2021 Years since quittin.1 Smokeless tobacco: Never Substance Use Topics Alcohol use: Yes Comment: occassionally Drug use: Yes Types: Marijuana Comment: everyday PHYSICAL EXAMINATION VITALS: LMP 10/23/2023 (Exact Date) GENERAL: alert, no distress, normal affect EYES: no icterus, no discharge, conjugate gaze RESPIRATORY: normal effort, regular rate, no audible wheeze ABDOMEN: soft, non-tender, non-distended GENITOURINARY: no flank tenderness EXTREMITIES: warm, no dependent edema, no malformations SKIN: no abnormal bruising, no rashes, no cyanosis NEUROLOGIC: no paralysis PVR: 36 cc Assessment (R39.11) Urinary hesitancy (primary encounter diagnosis) (N39.0) Frequent UTI 23 year old female with PMH of MS who presents for evaluation of urinary hesitancy and frequent UTI UA today is normal We discussed risk factors for recurrent UTI in females and rationale for lifestyle modifications/management including increased fluid intake (2-3 L/day), pre and post coital voiding if applicable, maintaining good bowel regimen, maintaining good hygiene practices (wipe front to back; wearing cotton underwear, avoiding tight fitting, non-breathable material), use of Probiotics and D-Mannose PVR today is 36 Discussed rationale for further evaluation with video UDS Plan -Lifestyle modifications as discussed -Recommend daily probiotics and D-Mannose for UTI prevention -Encourage she check urine culture at onset of UTI symptoms -Refer to Dr. Radha Barillas with video UDS scheduled prior Neeru Sifuentes APRN.CNP documented in this encounter [facility] 01-25-2024 Note HNO ID: [id number] Author: NEERU SIFUENTES APRN.CNP Service: ? Author Type: Nurse Practitioner Type: Progress Notes Filed: 01/25/2024 16:06 Note Text: Chief Complaint: urinary hesitancy HPI: Ladi Bernstein is a 23 year old female with history of ADHD, depression, endometriosis, multiple sclerosis (diagnosed October 2022) who presents for evaluation of urinary hesitancy and frequent UTI's. Reports having 2-3 UTI's in the past 5-6 months- she feels like UTI's seem to correlate with recent immunosuppression Rx for MS. Typical UTI symptoms include dysuria, increased urinary urgency/frequency, suprapubic discomfort. Of note, she is being treated with antibiotics locally based on symptoms- no cultures checked per patient. Has been taking an OTC cranberry supplement which seems to minimize symptoms No UTI symptoms today Also notes urinary hesitancy- ongoing for past 5-6 months. Denies episodes of acute retention. Other LUTS include urinary urgency and some dribbling. Will have to sit on the toilet longer- sometimes double voiding. No flank pain. Prior to current symptoms- denies any significant urologic history. No change in bowel habits MS symptoms include generalized weakness, numbness, muscle spasms, heat intolerance. States she is ambulatory, although slows down towards the end of the day- then has shuffled gait. Uses wheelchair only in certain situations. Does seated cardio work out routine. ANNEMARIE: Sometimes (daily) URGENCY: Yes UI: Yes PADS: No FREQUENCY: ~3 hours NOCTURIA: 0 per night STRAINING TO VOID: Yes EMPTIES COMPLETELY: No UTI: 3 past 12 months SEXUALLY ACTIVE: Yes Post-menopause: no Have you had a hysterectomy:NO Postmenopausal bleeding:Not applicable HEMATURIA HX: No GI: +hx of constipation improved with diet changes Do you have a history of any diagnosed back or Neurological problems:YES PSH: excision endometriosis; ; lap vlad; tonsillectomy LABS Creatinine Date Value Ref Range Status 11/03/2023 0.87 0.58 - 0.96 mg/dL Final 09/26/2023 0.77 0.58 - 0.96 mg/dL Final 09/25/2023 0.80 0.58 - 0.96 mg/dL Final 09/24/2023 0.87 0.58 - 0.96 mg/dL Final IMAGING CT ABD/PEL W IVCON 09/20/2023 IMPRESSION: No evidence of malignancy in the abdomen/pelvis. Kidneys: No mass, calculus or hydronephrosis. Probable parapelvic cysts in the upper pole of the left kidney. REVIEW OF SYSTEMS GENERAL:Negative for significant weight loss, fever, SEE HPI GENITOURINARY: See HPI The remainder of the ROS was negative. HISTORIES PAST MEDICAL HISTORY No date: ADHD (attention deficit hyperactivity disorder) No date: Depression No date: Endometriosis FAMILY HISTORY Problem Relation Age of Onset Diabetes Father Glaucoma Father Multiple Sclerosis No Family History SOCIAL HISTORY Social History Tobacco Use Smoking status: Former Current packs/day: 0.00 Average packs/day: 0.5 packs/day for 2.0 years (1.0 ttl pk-yrs) Types: Cigarettes Start date: 12/05/2019 Quit date: 12/04/2021 Years since quittin.1 Smokeless tobacco: Never Substance Use Topics Alcohol use: Yes Comment: occassionally Drug use: Yes Types: Marijuana Comment: everyday PHYSICAL EXAMINATION VITALS: LMP 10/23/2023 (Exact Date) GENERAL: alert, no distress, normal affect EYES: no icterus, no discharge, conjugate gaze RESPIRATORY: normal effort, regular rate, no audible wheeze ABDOMEN: soft, non-tender, non-distended GENITOURINARY: no flank tenderness EXTREMITIES: warm, no dependent edema, no malformations SKIN: no abnormal bruising, no rashes, no cyanosis NEUROLOGIC: no paralysis PVR: 36 cc Assessment (R39.11) Urinary hesitancy (primary encounter diagnosis) (N39.0) Frequent UTI 23 year old female with PMH of MS who presents for evaluation of urinary hesitancy and frequent UTI UA today is normal We discussed risk factors for recurrent UTI in females and rationale for lifestyle modifications/management including increased fluid intake (2-3 L/day), pre and post coital voiding if applicable, maintaining good bowel regimen, maintaining good hygiene practices (wipe front to back; wearing cotton underwear, avoiding tight fitting, non-breathable material), use of Probiotics and D-Mannose PVR today is 36 Discussed rationale for further evaluation with video UDS Plan -Lifestyle modifications as discussed -Recommend daily probiotics and D-Mannose for UTI prevention -Encourage she check urine culture at onset of UTI symptoms -Refer to Dr. Radha Barillas with video UDS scheduled prior Neeru Sifuentes APRN.[facility] 01-25-2024 Note Patient Outreach (UR OLMN) LADI BERNSTEIN ([id number]) 2000 F Date Time Provider Department 01/25/24 NEERU SIFUENTES During your visit today, we recorded the following information about you: Allergies As of Date: 01/25/2024 Noted Allergy Reaction COCONUT 01/25/2024 9 - Itching Date Reviewed: 01/25/2024 Reviewed by: Ryan Chatman OCCA - Fully Assessed Visit Diagnosis:Screening for genitourinary condition [Z13.89] Order(s):URINALYSIS, REFLEX MICROSCOPIC [[id number]] Order #: [id number]. #:[id number] Prescriptions as of 01/30/2024 - baclofen 10 mg tablet Take 1 tablet by mouth three times a day. - ocrelizumab (OCREVUS INTRAVENOUS) Inject intravenously. - iv contrast (will be provided with radiology test) MRI CSP Inject, intravenously, once for 1 dose. No IV access, insert saline lock prior to the beginning of sedation, infusion, injection of imaging exam. Discontinue saline lock post exam. If Pt. has a central line or IVAD, may access for administration according to line specific nursing protocol. Once exam is complete flush line and de-access according to line specific nursing protocol in the MR contrast administration guidelines link. - iv contrast (will be provided with radiology test) MRI TSP Inject, intravenously, once for 1 dose. No IV access, insert saline lock prior to the beginning of sedation, infusion, injection of imaging exam. Discontinue saline lock post exam. If Pt. has a central line or IVAD, may access for administration according to line specific nursing protocol. Once exam is complete flush line and de-access according to line specific nursing protocol in the MR contrast administration guidelines link. - iv contrast (will be provided with radiology test) MRI Brain Inject, intravenously, once for 1 dose.No IV access, insert saline lock prior to beginning of sedation, infusion, injection of imaging exam.Discontinue saline lock post exam. If Pt. has a central line or IVAD, may access for administration according to line specific nursing protocol.Once exam is complete flush line and de-access according to line specific nursing protocol in the MR contrast administration guidelines link - nortriptyline (PAMELOR) 10 mg capsule Take 2 capsules by mouth two times a day. - pregabalin (LYRICA) 50 mg capsule Please take 150 mg (3 capsules) in the morning, 100 mg (2 capsules) in the afternoon, and 150 mg (3 capsules) at bedtime. - VYVANSE 30 mg capsule Take 1 capsule by mouth once daily. - gabapentin (NEURONTIN) 100 mg capsule (Discontinued) Take 300 mg by mouth three times a day. 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] 09/20/2023 Nicotine use disorder, F17.2 [F17.200] 09/21/2023 Obesity, Class II, BMI 35-39.9 [E66.9] 09/23/2023 ADHD [F90.9] 09/23/2023 Neuropathic pain [M79.2] 09/23/2023 Vasovagal episode [R55] 09/23/2023 09/26/2023 Alteration in self-care ability [R68.89] 09/23/2023 Impaired mobility [Z74.09] 09/23/2023 At risk for falls [Z91.81] 09/23/2023 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] 10/28/2023 Encounter Status:Closed by Last 2 Left, PRODUSER on 01/30/24 [facility] 01-07-2024 Telephone encounter Note Called to assist patient in scheduling pain, psychology, MRIs, and follow-up visit with Dr. Holloway (preferably a Tuesday afternoon and the same day as her MRI). LVM with phone number to call when ready to schedule [facility] 01-07-2024 Miscellaneous Notes Called to assist patient in scheduling pain, psychology, MRIs, and follow-up visit with Dr. Holloway (preferably a Tuesday afternoon and the same day as her MRI). LVM with phone number to call when ready to schedule documented in this encounter [facility] 01-04-2024 Note HNO ID: [id number] Author: KEVIN HOLLOWAY MD Service: ? Author Type: Physician Type: Progress Notes Filed: 01/05/2024 07:26 Note Text: [facility] FOLLOWUP/ESTABLISHED VIRTUAL PATIENT VISIT PRINCIPAL NEUROLOGIC DIAGNOSIS: Multiple Sclerosis DISEASE SUMMARY Date of onset: August 2022 Date of diagnosis of MS: October 2022 Disease course at onset: Progressive Current disease course: Progressive with relapses Previous disease therapies: - IVMP x3 days (August 23-09/2023) Current disease therapy: None Most recent MRI brain: 10/27/2023 (stable vs. 09/07/2023: 2 PV lesions) Most recent MRI cervical spine: - 10/26/2023 (non GdE C5/6 lesion, new vs. 08/22/2023) - 08/22/2023 (non GdE C2/3 lesion, increased in size vs. 08/15/2022) Most recent MRI thoracic spine: - 10/26/2023 (non GdE T10/11 lesion, new vs. 09/07/2023) - 09/07/2023 (no lesions) CSF: - 12/09/2022 (RBC 0, WBC 10 [lymphocytic], Glucose 64, Protein 15.3, IgG index 2.5, OCBs not done) - 09/21/2023 (RBC 366, WBC 12 [lymphocytic], Glucose 67, Protein 50, IgG index 1.22, OCBs present, VDRL negative, HSV negative, cytology negative) JCV serology result and date: None OCT: 09/20/2023 (pending) Serum: - 2023: AQP4 Ab negative, copper wnl, vitamin B6 wnl, vitamin E wnl, vitamin B12/MMA wnl, syphilis negaitve, HIV negative, Lyme negative, HTLV negative, CRP wnl, CDS1 negative Systemic imaging: - PET whole body 09/22/2023: few likely reactive hypermetabolic cervical LN but otherwise unremarkable CHIEF COMPLAINT: Follow-up on MS disease modifying therapy INTERVAL HISTORY: Today's visit is being completed virtually over Zoom. Patient consented to proceed with virtual visit. Since her last virtual visit on 10/28/[address] Vyas, she has received her first 2 Ocrevus infusions on 12/05 and 12/19. She had a mild infusion reaction with the first infusion that resolved with administration of hypersensitivity medications. She experienced a transient erythematous papular rash on her buttocks the day after her second infusion. Also since her second infusion she has been getting headaches 2-3 times/week. These are pressure-like, retro-orbital, sometimes shooting down the back of her neck. Has not been taking medicine for it. Usually resolves after sleeping. Associated photophobia but no phonophobia or nausea. She has noticed some improvement in leg strength but is still using wheelchair. Has also started dieting and exercising. Pain is present but reasonably controlled with medication. She really notices when she misses a dose. Has referral to pain medicine but has not yet made appointment. After exercise she gets quite a bit more numbness, weakness, and pain as well as some nausea. Usually returns to normal within an hour. Sometimes the weakness persists up to 1-2 days. Her exercise routine consists mainly of seated cardio with arms and legs and ab workout. 20-40 min. Every other day. Reports a couple UTIs since starting Ocrevus and no history of recurrent UTIs prior. Also reports urinary hesitancy and has to stay on the toilet to void completely. No bowel symptoms or sexual dysfunction. Usual treating team: Ontaneda/Fellow The patient is by herself. The patient was last seen 11/04/23, currently taking Ocrevus. Since the patient's last visit the patient reports overall feeling stable. Issues with current therapy: Tolerating medication with the following side effects: headache. Neuro-QoL Functions (higher=better functioning) Flowsheet [facility] Distance Health from 01/04/2024 in [facility] Distance Health from 10/28/2023 in [facility] Office Visit from 09/20/2023 in [facility] Upper Extremity Domain T Score 33 -- 35 Lower Extremity Domain T Score 33 31 33 Cognitive Function Domain T Score 43 40 38 Positive Affect Well Being T Score -- -- -- Ability To Participate In Social Roles T Score 41 40 29 Satisfaction With Social Roles T Score 43 39 32 Neuro-QoL Symptoms (higher=worse symptoms) Flowsheet Row Distance Health from 01/04/2024 in [facility] Distance Health from 10/28/2023 in [facility] Office Visit from 09/20/2023 in [facility] Sleep Domain T Score 62 -- 59 Fatigue Domain T Score 61 61 64 Anxiety Domain T Score 56 61 57 Depression Domain T Score 50 53 49 Stigma Domain T Score 64 -- 60 Emotional Behavior Dyscontrol T Score -- -- -- has a past medical history of ADHD (attention deficit hyperactivity disorder), Depression, and Endometriosis. has a current medication list which includes the following prescription(s): baclofen, hydroxyzine hcl, ocrelizumab, iv contrast, iv contrast, iv contrast, nortriptyline, pregabalin, vyvanse, and [DISCONTINUED] gabapentin. EXAM: LMP 10/23/2023 (Exact Date) General Appearance: well appearing, in no acute distress Mental status evaluation during the interview and examination showed normal level of consciousness, orientation, language, memory, praxis, and higher int (more content not included)... [facility] 01-04-2024 History of Present illness Narrative Images from the original note were not included. [facility] FOLLOWUP/ESTABLISHED VIRTUAL PATIENT VISIT PRINCIPAL NEUROLOGIC DIAGNOSIS: Multiple Sclerosis DISEASE SUMMARY Date of onset: August 2022 Date of diagnosis of MS: October 2022 Disease course at onset: Progressive Current disease course: Progressive with relapses Previous disease therapies: - IVMP x3 days (August 23-09/2023) Current disease therapy: None Most recent MRI brain: 10/27/2023 (stable vs. 09/07/2023: 2 PV lesions) Most recent MRI cervical spine: - 10/26/2023 (non GdE C5/6 lesion, new vs. 08/22/2023) - 08/22/2023 (non GdE C2/3 lesion, increased in size vs. 08/15/2022) Most recent MRI thoracic spine: - 10/26/2023 (non GdE T10/11 lesion, new vs. 09/07/2023) - 09/07/2023 (no lesions) CSF: - 12/09/2022 (RBC 0, WBC 10 [lymphocytic], Glucose 64, Protein 15.3, IgG index 2.5, OCBs not done) - 09/21/2023 (RBC 366, WBC 12 [lymphocytic], Glucose 67, Protein 50, IgG index 1.22, OCBs present, VDRL negative, HSV negative, cytology negative) JCV serology result and date: None OCT: 09/20/2023 (pending) Serum: - 2023: AQP4 Ab negative, copper wnl, vitamin B6 wnl, vitamin E wnl, vitamin B12/MMA wnl, syphilis negaitve, HIV negative, Lyme negative, HTLV negative, CRP wnl, CDS1 negative Systemic imaging: - PET whole body 09/22/2023: few likely reactive hypermetabolic cervical LN but otherwise unremarkable CHIEF COMPLAINT: Follow-up on MS disease modifying therapy INTERVAL HISTORY: Today's visit is being completed virtually over Zoom. Patient consented to proceed with virtual visit. Since her last virtual visit on 10/28/[address] Vyas, she has received her first 2 Ocrevus infusions on 12/05 and 12/19. She had a mild infusion reaction with the first infusion that resolved with administration of hypersensitivity medications. She experienced a transient erythematous papular rash on her buttocks the day after her second infusion. Also since her second infusion she has been getting headaches 2-3 times/week. These are pressure-like, retro-orbital, sometimes shooting down the back of her neck. Has not been taking medicine for it. Usually resolves after sleeping. Associated photophobia but no phonophobia or nausea. She has noticed some improvement in leg strength but is still using wheelchair. Has also started dieting and exercising. Pain is present but reasonably controlled with medication. She really notices when she misses a dose. Has referral to pain medicine but has not yet made appointment. After exercise she gets quite a bit more numbness, weakness, and pain as well as some nausea. Usually returns to normal within an hour. Sometimes the weakness persists up to 1-2 days. Her exercise routine consists mainly of seated cardio with arms and legs and ab workout. 20-40 min. Every other day. Reports a couple UTIs since starting Ocrevus and no history of recurrent UTIs prior. Also reports urinary hesitancy and has to stay on the toilet to void completely. No bowel symptoms or sexual dysfunction. Usual treating team: Ontaneda/Fellow The patient is by herself. The patient was last seen 11/04/23, currently taking Ocrevus. Since the patient's last visit the patient reports overall feeling stable. Issues with current therapy: Tolerating medication with the following side effects: headache. Neuro-QoL Functions (higher=better functioning) Flowsheet Row Distance Health from 01/04/2024 in [facility] Distance Health from 10/28/2023 in [facility] Office Visit from 09/20/2023 in [facility] Upper Extremity Domain T Score 33 -- 35 Lower Extremity Domain T Score 33 31 33 Cognitive Function Domain T Score 43 40 38 Positive Affect Well Being T Score -- -- -- Ability To Participate In Social Roles T Score 41 40 29 Satisfaction With Social Roles T Score 43 39 32 Neuro-QoL Symptoms (higher=worse symptoms) Flowsheet Row Distance Health from 01/04/2024 in [facility] Distance Health from 10/28/2023 in [facility] Office Visit from 09/20/2023 in [facility] Sleep Domain T Score 62 -- 59 Fatigue Domain T Score 61 61 64 Anxiety Domain T Score 56 61 57 Depression Domain T Score 50 53 49 Stigma Domain T Score 64 -- 60 Emotional Behavior Dyscontrol T Score -- -- -- has a past medical history of ADHD (attention deficit hyperactivity disorder), Depression, and Endometriosis. has a current medication list which includes the following prescription(s): baclofen, hydroxyzine hcl, ocrelizumab, iv contrast, iv contrast, iv contrast, nortriptyline, pregabalin, vyvanse, and [DISCONTINUED] gabapentin. EXAM: LMP 10/23/2023 (Exact Date) General Appearance: well appearing, in no acute distress Mental status evaluation during the interview and examination showed normal level of consciousness, orientation, language, memory, praxis, and higher intellectual function Affect: Normal RESULTS: CBC + Diff Component Value Date WBC 6.46 11/03/2023 HB 12.7 11/03/2023 HCT 38.9 11/03/2023 PLT 250 11/03/2023 ABSLYMPH 2.27 11/03/2023 No results found for: VITD25 CMP Component Value Date AST 12 (L) 11/03/2023 GLUC 114 (H) 11/03/2023 BUN 13 11/03/2023 CREAT 0.87 11/03/2023 NA 140 11/03/2023 K 4.1 11/03/2023 CHLOR 104 11/03/2023 ALT 9 11/03/2023 MRI Results No new imaging since last visit. Previous MRIs show extensive burden of cervical and thoracic cord lesions without enhancement. ASSESSMENT/PLAN: Ladi Bernstein is a 23 year old female with presumed multiple sclerosis, though with atypical presentation or recurrent and progressive myelitis without supratentorial lesions. Since the last visit, she has started Ocrevus, which she has tolerated well overall other than some mild recurrent headaches since the second infusion. Clinically, she has also remained stable thought with persistent severe disability (wheelchair dependent). Will continue Ocrevus and monitor with repeat MRI about 6 months from previous one obtained. PLAN: -Continue Ocrevus -Repeat MRI brain, c and t-spine in about 6 months (around April) -Follow-up same day as or shortly after repeat MRI -Labs at next visit -Referral to urology placed due to concerns for urinary retention -Will send message to appointment pool to help coordinate multiple pending referrals and appointments I have communicated my name and active licensure. The patient's identity and physical location were verified at the time of this visit. Either the patient or their legal in store marketing representative has been informed of the risks and benefits of -- and alternatives to -- treatment through a remote evaluation and consents to proceed with the evaluation remotely. Lina Ordoñez MD Neuroimmunology Fellow, PGY 5 [facility] for Multiple Sclerosis [facility] STAFF PHYSICIAN NOTE OF PERSONAL INVOLVEMENT IN CARE I have reviewed the progress note obtained and documented by the fellow and I personally participated in the turcios components. I have discussed the case and management of the patient's care. The following comments revise or confirm relevant turcios components of their note. 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 We have started ocrelizumab and she has been clinically stable. We will plan on a repeat MRI of the brain and spinal cord in April of 2024. Agree with referral to urology and will likely need urodynamic testing. All questions answered. Follow-up in person with MRI studies. SIGNATURE: Kevin Holloway MD PhD DATE of SERVICE: January 05, 2024 ' documented in this encounter [facility] 12-28-2023 Telephone encounter Note Source : mychart from patient requesting refill. Delivery : e-script Requested Prescriptions Pending Prescriptions Disp Refills baclofen 10 mg tablet 90 tablet 2 Sig: Take 1 tablet by mouth three times a day. DX : Patient last seen 11/04/23 Next Appointment : Leslee Brown [facility] 12-28-2023 Miscellaneous Notes Source : mychart from patient requesting refill. Delivery : e-script Requested Prescriptions Pending Prescriptions Disp Refills baclofen 10 mg tablet 90 tablet 2 Sig: Take 1 tablet by mouth three times a day. DX : Patient last seen 11/04/23 Next Appointment : Leslee Brown documented in this encounter [facility] 12-21-2023 Telephone encounter Note Called [facility] and confirmed previous prescriptions for Macrobid and Atarax have not been picked up. Advised to cancel as I will be sending scripts to [facility] pharmacy now. Aldo Purvis MD Neuroimmunology Staff [facility] 12-21-2023 Miscellaneous Notes Called [facility] and confirmed previous prescriptions for Macrobid and Atarax have not been picked up. Advised to cancel as I will be sending scripts to [facility] pharmacy now. Aldo Purvis MD Neuroimmunology Staff This RN called and spoke to patient at Dr. Purvis's request. She states that both the Atarax and Macrobid prescriptions were sent to [facility] however, she is no longer in [place]. She states she needs both Rxs re escribed to [facility] on [address] In [place] were she is currently. Please review and process accordingly. Source : call from patient requesting refill. Delivery : e-script Requested Prescriptions Pending Prescriptions Disp Refills hydrOXYzine HCl (ATARAX) 50 mg tablet 15 tablet 0 Sig: Take 1 tablet by mouth once daily as needed for anxiety for up to 15 days. DX : Patient last seen 11/04/23 Next Appointment : pantera REID---pt is requesting another fill for Microbid 100 mg She switched her pharmacy to [facility] Leslee Brown documented in this encounter [facility] 12-21-2023 Telephone encounter Note This RN called and spoke to patient at Dr. Purvis's request. She states that both the Atarax and Macrobid prescriptions were sent to [facility] however, she is no longer in [place]. She states she needs both Rxs re escribed to [facility] on [address] In [place] were she is currently. Please review and process accordingly. [facility] 12-21-2023 Telephone encounter Note Source : call from patient requesting refill. Delivery : e-script Requested Prescriptions Pending Prescriptions Disp Refills hydrOXYzine HCl (ATARAX) 50 mg tablet 15 tablet 0 Sig: Take 1 tablet by mouth once daily as needed for anxiety for up to 15 days. DX : Patient last seen 11/04/23 Next Appointment : pantera REID---pt is requesting another fill for Microbid 100 mg She switched her pharmacy to [facility] Leslee Brown [facility] 12-19-2023 Telephone encounter Note Source : mychart from patient requesting refill. Delivery : e-script Requested Prescriptions Pending Prescriptions Disp Refills hydrOXYzine HCl (ATARAX) 50 mg tablet 30 tablet 0 Sig: Take 1 tablet by mouth once daily as needed for anxiety. DX : Patient last seen 11/04/23 Next Appointment : pantera Brown [facility] 12-19-2023 Miscellaneous Notes Source : mychart from patient requesting refill. Delivery : e-script Requested Prescriptions Pending Prescriptions Disp Refills hydrOXYzine HCl (ATARAX) 50 mg tablet 30 tablet 0 Sig: Take 1 tablet by mouth once daily as needed for anxiety. DX : Patient last seen 11/04/23 Next Appointment : pantera Brown documented in this encounter [facility] 12-06-2023 Note HNO ID: [id number] Author: SHIRLEY SETHI RN Service: ? Author Type: Registered Nurse Type: Progress Notes Filed: 12/06/2023 16:00 Note Text: Patient seen for first dose Ocrevus infusion today. During infusion, patient had complaint of developing wheezing and the feeling of swelling in the throat. Patient denied any itchiness or scratchiness. Upon assessment here was no noticible redness or swelling in the throat. SP02 was 100% and vitals were stable. Infusion was stopped and Hypersensitivity medications were administered. Patient wheezing had subsided at time of reassessment and vitals were stable. assessed patient at bedside. Recommended restart of infusion. Patient was agreeable. Patient was monitored and tolerated remainder of infusion well. Patient was discharged in stable condition. [facility] 12-06-2023 History of Present illness Narrative Patient seen for first dose Ocrevus infusion today. During infusion, patient had complaint of developing wheezing and the feeling of swelling in the throat. Patient denied any itchiness or scratchiness. Upon assessment here was no noticible redness or swelling in the throat. SP02 was 100% and vitals were stable. Infusion was stopped and Hypersensitivity medications were administered. Patient wheezing had subsided at time of reassessment and vitals were stable. assessed patient at bedside. Recommended restart of infusion. Patient was agreeable. Patient was monitored and tolerated remainder of infusion well. Patient was discharged in stable condition. documented in this encounter [facility] 12-01-2023 Note HNO ID: [id number] Author: ?, ?, ? Service: ? Author Type: ? Type: Progress Notes Filed: 12/01/2023 15:02 Note Text: [employer] form faxed back to [phone] [facility] 12-01-2023 History of Present illness Narrative [employer] form faxed back to [phone] documented in this encounter [facility] 11-23-2023 Telephone encounter Note Per previous notes, patient was discharged from hospital on baclofen 5 mg 3 times daily. Her office visit 10/28/2023 note mentions she was discharged from acute rehab with baclofen 10 mg 3 times daily. On medication review, unable to see this is acute rehab records not included in her chart. The following approved medication requests have been transmitted electronically. Requested Prescriptions Signed Prescriptions Disp Refills baclofen 10 mg tablet 90 tablet 2 Sig: Take 1 tablet by mouth three times a day. Authorizing Provider: MORIAH MARCUS APRN.CNP [facility] 11-23-2023 Miscellaneous Notes Per previous notes, patient was discharged from hospital on baclofen 5 mg 3 times daily. Her office visit 10/28/2023 note mentions she was discharged from acute rehab with baclofen 10 mg 3 times daily. On medication review, unable to see this is acute rehab records not included in her chart. The following approved medication requests have been transmitted electronically. Requested Prescriptions Signed Prescriptions Disp Refills baclofen 10 mg tablet 90 tablet 2 Sig: Take 1 tablet by mouth three times a day. Authorizing Provider: MORIAH MARCUS APRN.CNP Patient states that the prescription is supposed to be 10 mg and not 5 mg. Source : call from patient requesting refill. Delivery : e-script Requested Prescriptions Pending Prescriptions Disp Refills baclofen 5 mg tablet 90 tablet 2 Sig: Take 1 tablet by mouth three times a day. DX : Patient last seen 11-04-2023 Next Appointment : 01-04-2024 Karmen Jon documented in this encounter [facility] 11-23-2023 Telephone encounter Note Patient states that the prescription is supposed to be 10 mg and not 5 mg. Source : call from patient requesting refill. Delivery : e-script Requested Prescriptions Pending Prescriptions Disp Refills baclofen 5 mg tablet 90 tablet 2 Sig: Take 1 tablet by mouth three times a day. DX : Patient last seen 11-04-2023 Next Appointment : 01-04-2024 Karmen Jon [facility] Work Phone: 11-07-2023 Telephone encounter Note Patient reports taking 2 tablets (20mg) BID for the past few months. [facility] 11-07-2023 Miscellaneous Notes Patient reports taking 2 tablets (20mg) BID for the past few months. Source : call from patient requesting refill. Delivery : e-script Requested Prescriptions Pending Prescriptions Disp Refills nortriptyline (PAMELOR) 10 mg capsule Sig: Take 2 capsules by mouth daily at bedtime. DX : Patient last seen 11/04/23 Next Appointment : pantera REID---Pt says that there may be a dosage issue Leslee Brown documented in this encounter [facility] 11-07-2023 Telephone encounter Note Source : call from patient requesting refill. Delivery : e-script Requested Prescriptions Pending Prescriptions Disp Refills nortriptyline (PAMELOR) 10 mg capsule Sig: Take 2 capsules by mouth daily at bedtime. DX : Patient last seen 11/04/23 Next Appointment : pantera REID---Pt says that there may be a dosage issue Leslee Brown [facility] 11-04-2023 Instructions Vannessa Kruse APRN.[facility] - 11/04/2023 3:30 PM EDT [facility] points from today's shared medical visit: The entire process from deciding to start infusion therapy to receiving the infusion typically takes 6-8 weeks. Your [facility] providers, our infusion team, and the pharmacy authorization team are all in contact with each other at least once weekly to review your case and make sure that it is in progress. All blood tests and MRIs must be completed before our authorization team is able to request insurance approval for the medication. The B-cell therapies that we use for MS treatment include Ocrevus, Rituxan/Ruxience (Rituximab), and Briumvi. These all have the same risks, benefits, and side effects, and treat MS the same way. Your insurance company may have a preference for one of these medications over another, which is okay--we use these interchangeably. Common side effects include infusion site reactions (includes itching, hives, fatigue, flushing, and headache). We premedicate you prior to your infusions with Tylenol, Benadryl, and a small dose of steroids to help minimize these reactions. There are more rare side effects including an immune-mediated colitis, reactivation of hepatitis B virus, PML, and malignancies Please plan to have a driver guard for your first few infusions until you are able to determine how you feel after the infusions FP Complete (Ocrevus, Rituxan) and [employer]osh[employer] (Ruxience) and [employer] (Briumvi) have excellent financial assistance and co-pay assistance programs. Make sure that you have filled out the patient consent portion of the start form so that they can contact you about these programs. FP Complete assistance: Octoshape assistance: [employer]: [phone] Infusions are billed through your MEDICAL insurance benefit, not your pharmacy or drug plan. It is important to understand your deductible and out of pocket costs with your insurance plan. These drug companies (as above) help subsidize yearly out of pocket costs. Our financial counselor can give more specific information about your plan and costs: [phone] You may receive a denial from your insurance. In most situations, we have already been notified of this. We will work on an appeal and will also contact the medication companies to see if you qualify for medication coverage through them instead of insurance. We will contact you if any further information is needed or if you need to do anything for this process. Ultimately, do not stress. Keep your care team in the loop with any changes to your insurance or any information you may receive from them during this process. Once we have insurance approval, we will reach out to you to schedule your first infusion dates. We offer infusions at [facility] ([facility]), [facility], and [facility] Please confirm with your primary treatment team, but typically we ask that you stop your current MS medication about 1-2 weeks prior to your infusion Talk with your PCP regarding any vaccines you may need. We recommend that you do not get any vaccines 2 weeks prior to your infusion and at least 4 weeks after an infusion. NO LIVE VACCINES WHILE ON THESE MEDICATIONS There are support groups available through our [facility] team. Many of the groups remain virtual, but that may be changing in the future. Please contact your care team for referral to Health Psychology if you have interest in attending these groups or for one-on-one care regarding your diagnosis. This list is not all inclusive of what we offer as it can change based off of enrollment at times. MS Support Group: Targeting patients with MS who would like to connect and share common life experiences for emotional support and the opportunity to help others. Build confidence in ability to cope and address concerns related to MS. Meets every 3pm-4pm Young Professionals Support Group: Targeting the newly diagnosed and younger population that are working and/or have young families. Group members share experiences, receive emotional support, and navigate resources with peers. This group is only for patients living with MS. Meets of the month 4pm-5pm Men's Support Group: Targeting men diagnosed with MS who would like to connect and share common life experiences for emotional support and the opportunity to support others. Group members will be able to share experiences related to gender roles, masculinity, receive emotional support, and navigate resources with peers. Meets of the month 4pm-5pm Caregiver Support Group: Targeting persons in a caregiving role to any neurological condition. Caregivers are able to participate with or without spouse, partner, siblings, adult children, and parents to share concerns, experiences, and resources with other group members. Meets every of the months 4pm-5pm documented in this encounter [facility] 11-04-2023 History of Present illness Narrative Images from the original note were not included. SMAPRINCIPAL NEUROLOGIC DIAGNOSIS: Multiple Sclerosis PRINCIPAL NEUROLOGIC DIAGNOSIS: Multiple Sclerosis DISEASE SUMMARY Date of onset: August 2022 Date of diagnosis of MS: October 2022 Disease course at onset: Relapsing-Remitting Current disease course: Relapsing-Remitting Previous disease therapies: - IVMP x3 days (August 23-09/2023) Current disease therapy: None Most recent MRI brain: 10/27/2023 (stable vs. 09/07/2023: 2 PV lesions) Most recent MRI cervical spine: - 10/26/2023 (non GdE C5/6 lesion, new vs. 08/22/2023) - 08/22/2023 (non GdE C2/3 lesion, increased in size vs. 08/15/2022) Most recent MRI thoracic spine: - 10/26/2023 (non GdE T10/11 lesion, new vs. 09/07/2023) - 09/07/2023 (no lesions) CSF: - 12/09/2022 (RBC 0, WBC 10 [lymphocytic], Glucose 64, Protein 15.3, IgG index 2.5, OCBs not done) - 09/21/2023 (RBC 366, WBC 12 [lymphocytic], Glucose 67, Protein 50, IgG index 1.22, OCBs present, VDRL negative, HSV negative, cytology negative) JCV serology result and date: None OCT: 09/20/2023 (pending) Serum: - 2023: AQP4 Ab negative, copper wnl, vitamin B6 wnl, vitamin E wnl, vitamin B12/MMA wnl, syphilis negaitve, HIV negative, Lyme negative, HTLV negative, CRP wnl, CDS1 negative Systemic imaging: - PET whole body 09/22/2023: few likely reactive hypermetabolic cervical LN but otherwise unremarkable CHIEF COMPLAINT: MS B Cell Depleting Therapy Shared Medical Appointment I have communicated my name and active licensure. The patient's identity and physical location were verified at the time of this visit. Either the patient or their legal in store marketing representative has been informed of the risks and benefits of -- and alternatives to -- treatment through a remote evaluation and consents to proceed with the evaluation remotely. INTERVAL HISTORY: Patient last seen 10/28/23, with diagnosis of Multiple Sclerosis. Currently reports questions regarding multiple sclerosis B cell deleting therapies. Visit conducted over [employer]. They consented to proceed with shared medical virtual visit. REVIEW OF SYSTEMS: Neuro-QoL Functions (higher = better functioning) Flowsheet Row Distance Health from 10/28/2023 in [facility] Office Visit from 09/20/2023 in [facility] Upper Extremity Domain T Score -- 35 Lower Extremity Domain T Score 31 33 Cognitive Function Domain T Score 40 38 Positive Affect Well Being T Score -- -- Ability To Participate In Social Roles T Score 40 29 Satisfaction With Social Roles T Score 39 32 Neuro-QoL Symptoms (higher = worse symptoms) Flowsheet Row Distance Health from 10/28/2023 in [facility] Office Visit from 09/20/2023 in [facility] Sleep Domain T Score -- 59 Fatigue Domain T Score 61 64 Anxiety Domain T Score 61 57 Depression Domain T Score 53 49 Stigma Domain T Score -- 60 Emotional Behavior Dyscontrol T Score -- -- PAST MEDICAL HISTORY Diagnosis Date ADHD (attention deficit hyperactivity disorder) Depression Endometriosis MEDICATIONS and ALLERGIES were reviewed and updated. EXAM: General Appearance: well appearing, in no acute distress Mental status evaluation during the interview and examination showed normal level of consciousness, orientation, language, memory, praxis, and higher intellectual function Affect: Normal ASSESSMENT/PLAN: Ladi Bernstein is a 23 year old with Multiple Sclerosis. They should continue with their current medications and treatment as planned by their care team. All questions answered regarding Multiple Sclerosis and B cell deleting therapies Patient Health Education Discussed at Visit: Risks and Common side effects of MS medications I spent 35 minutes in this visit, with >50% direct patient time spent counseling about prognosis, treatment options, and coordination of care. Vannessa Kruse APRN.[facility] documented in this encounter [facility] 11-04-2023 Note HNO ID: [id number] Author: VANNESSA KRUSE APRN.CNP Service: ? Author Type: Nurse Practitioner Type: Progress Notes Filed: 11/04/2023 16:08 Note Text: SMAPRINCIPAL NEUROLOGIC DIAGNOSIS: Multiple Sclerosis PRINCIPAL NEUROLOGIC DIAGNOSIS: Multiple Sclerosis DISEASE SUMMARY Date of onset: August 2022 Date of diagnosis of MS: October 2022 Disease course at onset: Relapsing-Remitting Current disease course: Relapsing-Remitting Previous disease therapies: - IVMP x3 days (August 23-09/2023) Current disease therapy: None Most recent MRI brain: 10/27/2023 (stable vs. 09/07/2023: 2 PV lesions) Most recent MRI cervical spine: - 10/26/2023 (non GdE C5/6 lesion, new vs. 08/22/2023) - 08/22/2023 (non GdE C2/3 lesion, increased in size vs. 08/15/2022) Most recent MRI thoracic spine: - 10/26/2023 (non GdE T10/11 lesion, new vs. 09/07/2023) - 09/07/2023 (no lesions) CSF: - 12/09/2022 (RBC 0, WBC 10 [lymphocytic], Glucose 64, Protein 15.3, IgG index 2.5, OCBs not done) - 09/21/2023 (RBC 366, WBC 12 [lymphocytic], Glucose 67, Protein 50, IgG index 1.22, OCBs present, VDRL negative, HSV negative, cytology negative) JCV serology result and date: None OCT: 09/20/2023 (pending) Serum: - 2023: AQP4 Ab negative, copper wnl, vitamin B6 wnl, vitamin E wnl, vitamin B12/MMA wnl, syphilis negaitve, HIV negative, Lyme negative, HTLV negative, CRP wnl, CDS1 negative Systemic imaging: - PET whole body 09/22/2023: few likely reactive hypermetabolic cervical LN but otherwise unremarkable CHIEF COMPLAINT: MS B Cell Depleting Therapy Shared Medical Appointment I have communicated my name and active licensure. The patient's identity and physical location were verified at the time of this visit. Either the patient or their legal in store marketing representative has been informed of the risks and benefits of -- and alternatives to -- treatment through a remote evaluation and consents to proceed with the evaluation remotely. INTERVAL HISTORY: Patient last seen 10/28/23, with diagnosis of Multiple Sclerosis. Currently reports questions regarding multiple sclerosis B cell deleting therapies. Visit conducted over [employer]. They consented to proceed with shared medical virtual visit. REVIEW OF SYSTEMS: Neuro-QoL Functions (higher = better functioning) Flowsheet Row Distance Health from 10/28/2023 in [facility] Office Visit from 09/20/2023 in [facility] Upper Extremity Domain T Score -- 35 Lower Extremity Domain T Score 31 33 Cognitive Function Domain T Score 40 38 Positive Affect Well Being T Score -- -- Ability To Participate In Social Roles T Score 40 29 Satisfaction With Social Roles T Score 39 32 Neuro-QoL Symptoms (higher = worse symptoms) Flowsheet Row Distance [facility] from 10/28/2023 in [facility] Office Visit from 09/20/2023 in [facility] Sleep Domain T Score -- 59 Fatigue Domain T Score 61 64 Anxiety Domain T Score 61 57 Depression Domain T Score 53 49 Stigma Domain T Score -- 60 Emotional Behavior Dyscontrol T Score -- -- PAST MEDICAL HISTORY Diagnosis Date ADHD (attention deficit hyperactivity disorder) Depression Endometriosis MEDICATIONS and ALLERGIES were reviewed and updated. EXAM: General Appearance: well appearing, in no acute distress Mental status evaluation during the interview and examination showed normal level of consciousness, orientation, language, memory, praxis, and higher intellectual function Affect: Normal ASSESSMENT/PLAN: Ladi Bernstein is a 23 year old with Multiple Sclerosis. They should continue with their current medications and treatment as planned by their care team. All questions answered regarding Multiple Sclerosis and B cell deleting therapies Patient Health Education Discussed at Visit: Risks and Common side effects of MS medications I spent 35 minutes in this visit, with >50% direct patient time spent counseling about prognosis, treatment options, and coordination of care. Vannessa Kruse APRN.[facility] 10-28-2023 History of Present illness Narrative Images from the original note were not included. [facility] FOLLOWUP/ESTABLISHED VIRTUAL PATIENT VISIT PRINCIPAL NEUROLOGIC DIAGNOSIS: Multiple Sclerosis DISEASE SUMMARY Date of onset: August 2022 Date of diagnosis of MS: October 2022 Disease course at onset: Relapsing-Remitting Current disease course: Relapsing-Remitting Previous disease therapies: - IVMP x3 days (August 23-09/2023) Current disease therapy: None Most recent MRI brain: 10/27/2023 (stable vs. 09/07/2023: 2 PV lesions) Most recent MRI cervical spine: - 10/26/2023 (non GdE C5/6 lesion, new vs. 08/22/2023) - 08/22/2023 (non GdE C2/3 lesion, increased in size vs. 08/15/2022) Most recent MRI thoracic spine: - 10/26/2023 (non GdE T10/11 lesion, new vs. 09/07/2023) - 09/07/2023 (no lesions) CSF: - 12/09/2022 (RBC 0, WBC 10 [lymphocytic], Glucose 64, Protein 15.3, IgG index 2.5, OCBs not done) - 09/21/2023 (RBC 366, WBC 12 [lymphocytic], Glucose 67, Protein 50, IgG index 1.22, OCBs present, VDRL negative, HSV negative, cytology negative) JCV serology result and date: None OCT: 09/20/2023 (pending) Serum: - 2023: AQP4 Ab negative, copper wnl, vitamin B6 wnl, vitamin E wnl, vitamin B12/MMA wnl, syphilis negaitve, HIV negative, Lyme negative, HTLV negative, CRP wnl, CDS1 negative Systemic imaging: - PET whole body 09/22/2023: few likely reactive hypermetabolic cervical LN but otherwise unremarkable CHIEF COMPLAINT: Review diagnostic testing results and discuss implications INTERVAL HISTORY: Today's visit is being completed virtually over Zoom. Patient consented to proceed with virtual visit. The patient is accompanied by her fiance. The patient was last seen 10/04/2023. Since the patient's last visit the patient reports overall feeling stable. She starts outpatient physical therapy and occupational therapy on the . This will be scheduled at [facility]. She denies major side effects related to pain medication and reports they are controlling the pain well. She was discharged with the following regiment from [facility]: - Lyrica 150/100/150 - Baclofen 10 mg TID - Pamelor 20 mg BID She reports being almost out of her Lyrica as [facility] did not provide refills and is requesting refills. She was evaluated by tumor board with telephone encounter 10/27/2023: Results of tumor board presentation: New lesion noted on MRI cervical spine. Low risk for tumor. She is advised to keep neurology follow-ups. Can reevaluate on TB in 3 months with new imaging if needed. Will defer continued imaging to neurology at this time. She denies possibility of and is not currently but also denies any use of contraception. Refer to patient-entered data. Neuro-QoL Functions (higher=better functioning) Flowsheet Row Distance Health from 10/28/2023 in [facility] Office Visit from 09/20/2023 in [facility] Upper Extremity Domain T Score -- 35 Lower Extremity Domain T Score 31 33 Cognitive Function Domain T Score 40 38 Positive Affect Well Being T Score -- -- Ability To Participate In Social Roles T Score 40 29 Satisfaction With Social Roles T Score 39 32 Neuro-QoL Symptoms (higher=worse symptoms) Flowsheet Row Distance Health from 10/28/2023 in [facility] Office Visit from 09/20/2023 in [facility] Sleep Domain T Score -- 59 Fatigue Domain T Score 61 64 Anxiety Domain T Score 61 57 Depression Domain T Score 53 49 Stigma Domain T Score -- 60 Emotional Behavior Dyscontrol T Score -- -- has a past medical history of ADHD (attention deficit hyperactivity disorder), Depression, and Endometriosis. has a current medication list which includes the following prescription(s): baclofen, vyvanse, pregabalin, nortriptyline, and [DISCONTINUED] gabapentin. EXAM: LMP 10/23/2023 (Exact Date) General Appearance: well appearing, in no acute distress Mental status evaluation during the interview and examination showed normal level of consciousness, language, memory, praxis, and higher intellectual function Affect: Normal RESULTS: CBC + Diff Component Value Date WBC 7.37 09/26/2023 HB 12.8 09/26/2023 HCT 39.2 09/26/2023 PLT 237 09/26/2023 ABSLYMPH 1.87 09/20/2023 No results found for: VITD25 CMP Component Value Date AST 12 (L) 09/20/2023 GLUC 121 (H) 09/26/2023 BUN 17 09/26/2023 CREAT 0.77 09/26/2023 NA 139 09/26/2023 K 4.4 09/26/2023 CHLOR 106 (H) 09/26/2023 ALT 7 09/20/2023 MRI Results MRI brain w/wo 10/25/2023: Normal MRI of the brain. No evidence of demyelinating disease [on personal review there is right PV lesion and a smaller left PV lesion also present on prior MRI brain, best seen on sagittal cuts]. MRI cervical and thoracic spine w/wo 10/25/2023: Compared to most recent external facility MRI performed in August 2023, there has been interval development of new T2 STIR hyperintense lesions within the central and dorsal aspect of the cervical spinal cord spanning C5-C6 as well as multifocally within the thoracic spinal cord, most pronounced and centrally spanning T10-T11. These findings are concerning for interval progression of multifocal demyelinating disease. Similar appearance of pre-existing T2 STIR hyperintense lesion within the central cord at the level of the C3-C4 disc space, also concerning for demyelinating disease. Query additional tiny lesion within the dorsal cord at the level of C1-C2. No enhancing cord lesions are identified. ASSESSMENT/PLAN: 23 year old right handed female with cervical myelopathy and other relevant PMHx ADHD and depression presenting for follow up. She had onset of neurological symptoms around August 2022 progressively and subacutely consistent with myelopathy and found to have a C2/3 non-enhancing lesion and treated with Medrol dose-pack without improvement. She had improvement in symptoms with but has had recurrence of subacute progressive symptoms post- starting around July 2023 with MRI demonstrating expansion in the size of the previously noted lesion again without GdE. The remainder of neuroimaging notable for subtle periventricular lesions. CSF workup has demonstrated lymphocytic pleocytosis and elevated IgG index and presence of OCBs. Systemic imaging has been unremarkable. She has been treated again with 3 days of IVMP in August 2023 without improvement. She was admitted to hospital for expedited workup and was discharged to [facility] in early September 2023 although she has noticed mild improvement she remains requiring wheelchair/walker. Her neurological examination has previously evidence of [employer] injury (in addition to possibly non-organic overlay symptoms). Follow up imaging in October 2023 showed new non-GdE cervical and thoracic cord lesions. Overall, taken together the etiology of progressive and recurrent myelitis at this time is most likely related to autoimmune and inflammatory etiology. Although some atypical features and diagnostic ambiguity is present, the diagnosis at this time based on available information is multiple sclerosis (likely primary progressive variant). Given the ongoing inflammatory activity we will plan on initiation of treatment with anti-CD20 mAb (ocrelizumab) pending pre-DMT lab clearance. Discussed risks, benefits, and alternatives and consent obtained. In the meantime, will also address symptoms as outlined below. PLAN: - Pre-DMT lab testing as outlined below. - Start Ocrevus authorization. - Advised patient to follow up with PCP to obtain vaccines and malignancy screening as per protocol. - Refilled Lyrica given efficacy and tolerance. - Referral to chronic pain management- will ask our scheduling team to contact. - Outpatient PT and OT as scheduled. - Follow up in person in about 1 month. [facility] on 10/28/23 IMMUNOGLOBULINS,IGG,IGA,IGM COMPLETE BLOOD COUNT AND DIFFERENTIAL COMPREHENSIVE METABOLIC PANEL HEP REMOTE PANEL BL VARICELLA ZOSTER IGG JCV ANTIBODY & INDEX WITH REFLEX BLOOD TB SCREEN CONSULT TO CENTER FOR PAIN RECOVERY (CHRONIC PAIN) Seen with Dr. Vyas. Aldo Purvis MD Neuroimmunology Fellow [facility] Multiple Sclerosis NEUROLOGY STAFF ADDENDUM I have reviewed the history and physical examination obtained and documented by the fellow and I personally participated in the turcios components of history and examination. I agree with the fellow's plan as noted above which was formulated with my direct input. Challenging case with a relapsing myelitis. AQP4/MOG testing negative and no systemic findings on PET for a peripheral biopsy target. Overall, agree that the clinical and radiographic features seem suggestive of an immune mediated process and given the relapsing nature requires treatment. Agree with CD20 with close monitoring moving forward. Risk/benefits discussed. Pretreatment labs ordered/ I spent a total of 40 minutes on the date of the service which included preparing to see the patient, [id number] patient care, completing clinical documentation, obtaining and/or reviewing separately obtained history and counseling and educating the patient/family/caregiver. I have communicated my name and active licensure. The patient's identity and physical location [[place]] were verified at the time of this visit. Either the patient or their legal in store marketing representative has been informed of the risks and benefits of -- and alternatives to -- treatment through a remote evaluation and consents to proceed with the evaluation remotely. To Vyas MD Staff, Department of Neurology [facility] for Multiple Sclerosis documented in this encounter [facility] 10-28-2023 Note HNO ID: [id number] Author: ALDO PURVIS MD Service: ? Author Type: Physician Type: Progress Notes Filed: 11/04/2023 17:30 Note Text: [facility] FOLLOWUP/ESTABLISHED VIRTUAL PATIENT VISIT PRINCIPAL NEUROLOGIC DIAGNOSIS: Multiple Sclerosis DISEASE SUMMARY Date of onset: August 2022 Date of diagnosis of MS: October 2022 Disease course at onset: Progressive Current disease course: Progressive with relapses Previous disease therapies: - IVMP x3 days (August 23-09/2023) Current disease therapy: None Most recent MRI brain: 10/27/2023 (stable vs. 09/07/2023: 2 PV lesions) Most recent MRI cervical spine: - 10/26/2023 (non GdE C5/6 lesion, new vs. 08/22/2023) - 08/22/2023 (non GdE C2/3 lesion, increased in size vs. 08/15/2022) Most recent MRI thoracic spine: - 10/26/2023 (non GdE T10/11 lesion, new vs. 09/07/2023) - 09/07/2023 (no lesions) CSF: - 12/09/2022 (RBC 0, WBC 10 [lymphocytic], Glucose 64, Protein 15.3, IgG index 2.5, OCBs not done) - 09/21/2023 (RBC 366, WBC 12 [lymphocytic], Glucose 67, Protein 50, IgG index 1.22, OCBs present, VDRL negative, HSV negative, cytology negative) JCV serology result and date: None OCT: 09/20/2023 (pending) Serum: - 2023: AQP4 Ab negative, copper wnl, vitamin B6 wnl, vitamin E wnl, vitamin B12/MMA wnl, syphilis negaitve, HIV negative, Lyme negative, HTLV negative, CRP wnl, CDS1 negative Systemic imaging: - PET whole body 09/22/2023: few likely reactive hypermetabolic cervical LN but otherwise unremarkable CHIEF COMPLAINT: Review diagnostic testing results and discuss implications INTERVAL HISTORY: Today's visit is being completed virtually over Zoom. Patient consented to proceed with virtual visit. The patient is accompanied by her fiance. The patient was last seen 10/04/2023. Since the patient's last visit the patient reports overall feeling stable. She starts outpatient physical therapy and occupational therapy on the . This will be scheduled at [facility]. She denies major side effects related to pain medication and reports they are controlling the pain well. She was discharged with the following regiment from [facility]: - Lyrica 150/100/150 - Baclofen 10 mg TID - Pamelor 20 mg BID She reports being almost out of her Lyrica as [facility] did not provide refills and is requesting refills. She was evaluated by tumor board with telephone encounter 10/27/2023: Results of tumor board presentation: New lesion noted on MRI cervical spine. Low risk for tumor. She is advised to keep neurology follow-ups. Can reevaluate on TB in 3 months with new imaging if needed. Will defer continued imaging to neurology at this time. She denies possibility of and is not currently but also denies any use of contraception. Refer to patient-entered data. Neuro-QoL Functions (higher=better functioning) Flowsheet Row [facility] from 10/28/2023 in [facility] Office Visit from 09/20/2023 in [facility] Upper Extremity Domain T Score -- 35 Lower Extremity Domain T Score 31 33 Cognitive Function Domain T Score 40 38 Positive Affect Well Being T Score -- -- Ability To Participate In Social Roles T Score 40 29 Satisfaction With Social Roles T Score 39 32 Neuro-QoL Symptoms (higher=worse symptoms) Flowsheet Row [facility] from 10/28/2023 in [facility] Office Visit from 09/20/2023 in [facility] Sleep Domain T Score -- 59 Fatigue Domain T Score 61 64 Anxiety Domain T Score 61 57 Depression Domain T Score 53 49 Stigma Domain T Score -- 60 Emotional Behavior Dyscontrol T Score -- -- has a past medical history of ADHD (attention deficit hyperactivity disorder), Depression, and Endometriosis. has a current medication list which includes the following prescription(s): baclofen, vyvanse, pregabalin, nortriptyline, and [DISCONTINUED] gabapentin. EXAM: LMP 10/23/2023 (Exact Date) General Appearance: well appearing, in no acute distress Mental status evaluation during the interview and examination showed normal level of consciousness, language, memory, praxis, and higher intellectual function Affect: Normal RESULTS: CBC + Diff Component Value Date WBC 7.37 09/26/2023 HB 12.8 09/26/2023 HCT 39.2 09/26/2023 PLT 237 09/26/2023 ABSLYMPH 1.87 09/20/2023 No results found for: VITD25 CMP Component Value Date AST 12 (L) 09/20/2023 GLUC 121 (H) 09/26/2023 BUN 17 09/26/2023 CREAT 0.77 09/26/2023 NA 139 09/26/2023 K 4.4 09/26/2023 CHLOR 106 (H) 09/26/2023 ALT 7 09/20/2023 MRI Results MRI brain w/wo 10/25/2023: Normal MRI of the brain. No evidence of demyelinating disease [on personal review there is right PV lesion and a smaller left PV lesion also present on prior MRI brain, best seen on sagittal cuts]. MRI cervical and thoracic spine w/wo 10/25/2023: Compared to most recent external facility MRI performed in August 2023, there has been interval development of new T2 STIR hyperintense lesions within th (more content not included)... [facility] 10-27-2023 Miscellaneous Notes Called patient and verified by name and . Discussed neuroimaging demonstrating new non-GdE cervical and thoracic cord lesions. Clinically patient has remained stable since discharge from rehab and remains predominantly requiring wheelchair/walker. Taken together with other results, this likely represents spectrum of relapsing demyelinating disorders requiring long-term immunotherapy. Will schedule patient for add-on visit tomorrow pm virtually to discuss further. Aldo Purvis MD Neuroimmunology Fellow documented in this encounter [facility] 10-27-2023 Telephone encounter Note Addressed by fellow in different encounter. Moriah MARCUS APRN.AUTOMATIC GRINDER OPERATOR [facility] Work Phone: 10-27-2023 Miscellaneous Notes Addressed by fellow in different encounter. Moriah MARCUS APRN.AUTOMATIC GRINDER OPERATOR Perico Call Name of caller : Ladi Relationship to patient: Self Return call phone number : [phone] Reason for call : Patient is requesting to review recent MRI because she has questions about lesions documented in this encounter [facility] 10-27-2023 Telephone encounter Note Called patient and verified by name and . Discussed neuroimaging demonstrating new non-GdE cervical and thoracic cord lesions. Clinically patient has remained stable since discharge from rehab and remains predominantly requiring wheelchair/walker. Taken together with other results, this likely represents spectrum of relapsing demyelinating disorders requiring long-term immunotherapy. Will schedule patient for add-on visit tomorrow pm virtually to discuss further. Aldo Purvis MD Neuroimmunology Fellow [facility] 10-27-2023 Telephone encounter Note Perico Call Name of caller : Ladi Relationship to patient: Self Return call phone number : [phone] Reason for call : Patient is requesting to review recent MRI because she has questions about lesions [facility] 10-27-2023 Telephone encounter Note Patient contacted regarding results of tumor board case review. She was verified by name and birthdate at time of call. Results of tumor board presentation : New lesion noted on MRI cervical spine. Low risk for tumor. She is advised to keep neurology follow-ups. Can reevaluate on TB in 3 months with new imaging if needed. Will defer continued imaging to neurology at this time. [facility] Work Phone: 10-27-2023 Miscellaneous Notes Patient contacted regarding results of tumor board case review. She was verified by name and birthdate at time of call. Results of tumor board presentation : New lesion noted on MRI cervical spine. Low risk for tumor. She is advised to keep neurology follow-ups. Can reevaluate on TB in 3 months with new imaging if needed. Will defer continued imaging to neurology at this time. documented in this encounter [facility] 10-24-2023 Telephone encounter Note Called patient and confirmed name and . Patient would like medication for anxiety related to MRI. She is not sure what but previously taken any medications was not great. Per PDMP review patient has history of diazepam dispense. Patient does not take any other benzodiazepines regularly or as needed. Will order 0.5 mg of lorazepam to be taken 30 -60 minutes prior to MRI ([facility] on [address] at #[phone]). Advised her not to drive on the day of taking. Patient also denies possibility of . Aldo Purvis MD Neuroimmunology Fellow [facility] 10-24-2023 Miscellaneous Notes Called patient and confirmed name and . Patient would like medication for anxiety related to MRI. She is not sure what but previously taken any medications was not great. Per PDMP review patient has history of diazepam dispense. Patient does not take any other benzodiazepines regularly or as needed. Will order 0.5 mg of lorazepam to be taken 30 -60 minutes prior to MRI ([facility] on [address] at #[phone]). Advised her not to drive on the day of taking. Patient also denies possibility of . Aldo Purvis MD Neuroimmunology Fellow Perico Call Name of caller : Ladi Bernstein Relationship to patient: Self Return call phone number : [phone] Reason for call : Other : Brief description of concern : Patient is calling and having MRI's done tomorrow and she forgot to ask you for something for the MRI's. She needs something called into the [facility] on [address] at #[phone]. If any questions, please call her. Please let her know once done. documented in this encounter [facility] 10-24-2023 Telephone encounter Note Perico Call Name of caller : Ladi Bernstein Relationship to patient: Self Return call phone number : [phone] Reason for call : Other : Brief description of concern : Patient is calling and having MRI's done tomorrow and she forgot to ask you for something for the MRI's. She needs something called into the [facility] on [address] at #[phone]. If any questions, please call her. Please let her know once done. [facility] Work Phone: 10-24-2023 History of Present illness Narrative Spine Care Path Neck Pain - Chronic (> 12 weeks) Initial Exam SUBJECTIVE HISTORY OF PRESENT ILLNESS: Ladi Bernstein is a 23 year old female who presents with a chief complaint of low back, neck, arm, and leg pain and is seen in consultation requested by Dr. Kevin Holloway for an opinion regarding myelopathy . My final recommendations will be communicated back to the requesting physician by way of shared medical record or letter via US mail. Patient presents with Full body pain , today worst in bilateral hands and wrist. Denies accident/injury Onset of symptoms began in August 2022. She reports that initial symptoms began with bilateral feet numbness that then progressed upwards to bilateral lower extremities stopping at her waistline. She reported symptoms at that time to primary care provider and had x-rays completed. She states that then numbness began progressing to her chest and hands. After onset numbness to chest and hands to begin experiencing a squeezing sensation to her rib pain and full body pain along with weakness to all extremities. When the symptoms occurred she went to the emergency department at [facility] where she was advised to see a neurologist. She then went to [facility] where she had continuation and worsening of symptoms and had a CT of brain and was once again referred to see a neurologist. She then established with Dr. Garcia at [facility]. She states initially she was diagnosed with transverse myelitis where she had a spinal tap completed after cervical spine lesion was noted on MRI. Patient reports that she was told results were inconclusive. While she was her symptoms improved in her second trimester. She gave in March 2023 to a premature son. After giving son was in the NICU for approximately 4 months. She states that during this time symptoms were mild. She began having increased pain and symptoms in July 2023. She states that after experienced an increase in pain for 3 weeks she was attempting to cut her dinner and the pain intensified and she began having sensations that her hands and fingers were breaking along with numbness. She reports that she began having dexterity difficulties with inability to grasp items and was dropping items frequently. She was once again evaluated by her neurologist with new MRI imaging completed at that time. She states that the lesion could not be the lesion had could not be biopsied increased. She states that she was also told that she had FND and was referred to a second. At [facility]. She has recently been seen and evaluated by Dr. Holloway. After her initial evaluation with Dr. Holloway she was admitted to the hospital 09/20/2023 through 09/27/2023. During admission lumbar puncture and laboratory studies were completed. At discharge she went to a rehab facility from 09/27/2023 through 10/04/2023. She reports that she has been in a wheelchair due to difficulty with balance and ambulation since 09/27/2023. She has recently followed up with Dr. Holloway where a referral to neuro-oncology was placed. At time of today's appointment she states that when she attempted to make neuro oncology consult appointment along with spine surgery consult appointment she was placed onto this providers schedule. Per Dr. Holloway note 10/04/2023: DISEASE SUMMARY Date of onset: August 2022 Date of diagnosis of MS: N/A Disease course at onset: Relapsing-Remitting Current disease course: Relapsing-Remitting Previous disease therapies: - IVMP x3 days (August 23-09/2023) Current disease therapy: None Most recent MRI brain: 09/07/2023 (no lesions) Most recent MRI cervical spine: 08/22/2023 (non GdE C2/3 lesion, increased in size vs. 08/15/2022) Most recent MRI thoracic spine: 09/07/2023 (no lesions) CSF: - 12/09/2022 (RBC 0, WBC 10 [lymphocytic], Glucose 64, Protein 15.3, IgG index 2.5, OCBs not done) - 09/21/2023 (RBC 366, WBC 12 [lymphocytic], Glucose 67, Protein 50, IgG index 1.22, OCBs present, VDRL negative, HSV negative, cytology negative) JCV serology result and date: None OCT: 09/20/2023 (normal) Serum: - 2023: AQP4 Ab negative, copper wnl, vitamin B6 wnl,vitamin E wnl, vitamin B12/MMA wnl, syphilis negaitve, HIV negative, Lyme negative, HTLV negative, CRP wnl, CDS1 negative Systemic imaging: - PET whole body 09/22/2023: few likely reactive hypermetabolic cervical LN but otherwise unremarkable Hector, patient's fianc , present with patient consent Arrived in wheel chair Former smoker - quit 2021 Not currently working She is right handed Neck: Pain localized to Entire neck Pain described as aching, continuous, breaking, numbness, weakness Radiation:BUE hands all finger, Numbness/Tingling: pinkie ring middle finger numbness worse, BUE, Back: Pain localized to thoracic and lumbar t/o Pain described as aching, continuous, breaking, numbness, weakness Radiation: BLE entire Numbness/Tingling: BLE - great toe bilateral greatest Positive dexterity difficulties, urinary incontinence that began in August 2022, positive for imbalance without falls. She has been using a wheelchair since 09/27/2023. Pain rated 7/10 Pain worse with everything, Pain improved with lyrica, baclofen, nortriptyline, Vyvanse , heat, PT Interventions: medications, heat , PT Medications: Vyvanse , lyrica, baclofen, nortriptyline, Past medications: Gabapentin Physical Therapy: Restarting 11/02/20232022 - at [facility] Treating Physicians: Dr Emanuel - Neurology - Referring Provider Dr. Garcia - Neruology - [facility] History of Spine Injections/Surgery: 09/2022 spinal tap 11/2022 spinal tap Other Issues Addressed at the Visit Today: None. Precipitating Event: None PAIN EVALUATION 10/24/2023 1359 Pain Level: 7 Frequency: Continuous Litigation: No Workers' Compensation: No YELLOW & BLUE FLAGS No-Neg Attitude; Back Pain is Disabling No-Avoiding Activity (for Fear of Pain) No-Depression or Anxiety Disorders No-Social Problems No-Substance Use Disorder No-Job Dissatisfaction No-Financial Disincentives Patient Entered Questionnaires PROMIS Score Percentiles 09/18/2023 PROMIS Global Health Scale Physical Health Percentile 1 Mental Health Percentile 13 Percentiles provide an indication of how the patient's score ranks in relation to the general population. Higher percentile rankings indicate better function/quality of life. 50th percentile is the average of the general population and indicates half of respondents had a worse score. 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) Nicotine use disorder, F17.2 Obesity, Class II, Bmi 35-39.9 Adhd Neuropathic Pain Alteration in Self-Care Ability Impaired Mobility At Risk for Falls PAST MEDICAL HISTORY Diagnosis Date ADHD (attention deficit hyperactivity disorder) Depression Endometriosis PAST SURGICAL HISTORY Procedure Laterality Date SECTION HX REMOVAL GALLBLADDER Social History Tobacco Use Smoking status: Former Packs/day: 0.50 Years: 2.00 Additional pack years: 0.00 Total pack years: 1.00 Types: Cigarettes Quit date: 12/04/2021 Years since quittin.8 Smokeless tobacco: Never Substance Use Topics Alcohol use: Yes Comment: occassionally Drug use: Yes Types: Marijuana Comment: everyday FAMILY HISTORY Problem Relation Age of Onset Diabetes Father Glaucoma Father Multiple Sclerosis No Family History ALLERGIES No Known Allergies CURRENT MEDICATIONS: baclofen 5 mg tablet Take 1 tablet by mouth three times a day. nortriptyline (PAMELOR) 10 mg capsule Take 2 capsules by mouth daily at bedtime. pregabalin (LYRICA) 150 mg capsule Take 1 capsule by mouth twice daily for 90 days. baclofen 5 mg tablet 0.5 tablets by ORAL/FEEDING TUBE route two times a day as needed. VYVANSE 30 mg capsule Take 1 capsule by mouth once daily. cholecalciferol (VITAMIN D3) 1,000 unit tab tablet 1 tablet by ORAL/FEEDING TUBE route once daily. (Patient not taking: Reported on 10/24/2023) [DISCONTINUED] gabapentin (NEURONTIN) 100 mg capsule Take 300 mg by mouth three times a day. REVIEW OF SYSTEMS: PAIN ASSESSMENT: See HPI. GENERAL: Denies fever, chills malaise and weight loss. HEENT: No recent change in vision or hearing. CARDIOVASCULAR: Denies chest pain, history of A-fib, valvular disease, or pacemaker/ICD. RESPIRATORY: Denies SOB, sputum production, and hemoptysis. GI: Denies GI ulcers, inflammatory disease, or liver disease. : Incontinence MUSCULOSKELETAL: Positive for See HPI SKIN: Denies rash or itching. PSYCHOLOGICAL: Depression and ADHD - on vyvance and nortriptyline NEURO: Numbness, foggy memory ENDOCRINE: Denies diabetes, thyroid disease. HEMATOLOGY/LYMPHOLOGY: Denies cancer, bleeding or clotting disorders, anemia,and DVT's. ALLERGIC/IMMUNOLOGICAL: Denies risks for infection, or recent MRSA infections. OBJECTIVE: PHYSICAL EXAM Ht 162.6 cm (5' 4.02 ) Wt 94.5 kg (208 lb 5.4 oz) LMP 10/23/2023 (Exact Date) BMI 35.74 kg/m GENERAL APPEARANCE: Well appearing, well-hydrated, well nourished and alert SKIN: Head, neck, trunk, and extremities dry, intact and without lesions LUNGS: even and non-labored breathing, normal chest excursion NEURO/PSYCH: oriented to time, place, and person, speech normal, mental status intact GAIT: non-ambulatory/wheelchair POSTURE: Posture and spinal curves are normal PALPATION: no palpable masses, tenderness, or spasm, no palpable subluxation or step-off, no point tenderness over the spine MUSCULOSKELETAL: Extended Low Back & Leg Exam Lumbar Range of Motion Flexion Unable to evaluate Extension Unable to evaluate RIGHT LEFT Lateral Bending Unable to evaluate Unable to evaluate Oblique Extension Unable to evaluate Unable to evaluate Leg Raise Straight Leg Raise Unable to evaluate Unable to evaluate Contralateral Straight Leg Raise Unable to evaluate Unable to evaluate DTRs Knee Hyper-reflexive Hyper-reflexive Ankle Normal Normal Babinski normal normal Strength of Lower Extremities Extensor Hallux Longus 4/5 4/5 Ankle Dorsiflexion 4/5 4/5 Ankle Plantarflexion 4/5 4/5 Knee Extension 4/5 4/5 Tato's Exam: Deferred Hip Range of Motion - modified RIGHT LEFT Flexion Normal Normal Extension Normal Normal Abduction Normal Normal Adduction Normal Normal Internal Rotation Normal Normal External Rotation Normal Normal Hip Exam RIGHT LEFT TARI Exam Normal Normal Trochanteric Bursa Tenderness Normal Normal Gaenslen's Maneuver Unable to evaluate Unable to evaluate Marcello's Test (IT-Band Pathology) Unable to evaluate Unable to evaluate @[id number]@ Cervical Range of Motion Flexion Normal With pain Extension Normal With pain RIGHT LEFT Rotation Full ROM with pain Full ROM with pain Lateral Bend Full ROM with pain Full ROM with pain Upper Body Reflex Exam RIGHT LEFT Reflex Status Reflex Status Biceps 3+ Brisk 3+ Brisk Triceps 3+ Brisk 3+ Brisk Brachioradialis 3+ Brisk 3+ Brisk Inverted Radial 2+ Normal 2+ Normal Noble's Sign Present present Upper Extremity Strength RIGHT LEFT Strength (MMT) Strength (MMT) Shoulder Abduction 4/5 4/5 Biceps 4/5 4/5 Triceps 4/5 4/5 Resisted Suppination 4/5 4/5 Wrist Extension 4/5 4/5 Interossei 4/5 4/5 Shoulder Range of Motion RIGHT LEFT Flexion Normal Normal Extension Normal Normal Abduction Normal Normal Adduction Normal Normal Internal Rotation Normal Normal External Rotation Normal Normal Shoulder Tests Neer Impingement Sign - Negative Empty Can Test -weakness to bilateral upper extremities noted with examination Speed's Test - weakness to bilateral upper extremities noted with examination NEUROSENSORY: Soft touch; Decreased - Bilateral lower extremities Lhermitte's test: Positive Spurling test: positive Tinel's test: Positive Phalen's test: Inconclusive Tremoring noted when patient performed bilateral upper and lower extremity strength testing. Patient had difficulty with ambulating. With attempt to obtain patient's weight, Moriah DE and patient's fianc had to assist due to weakness. Due to weakness patient is unable to get onto examination table and examination was completed from wheelchair for patient safety and comfort. Neuro Tests: None Data Review: [facility] records independently reviewed Images independently reviewed with the patient Imaging and outside records independently reviewed New MRI's scheduled for 10/25/2023: NM/PET 09/22/2023: HEAD/NECK: * Few mildly hypermetabolic subcentimeter cervical lymphadenopathy, presumably reactive. * No definite FDG avid neoplastic process. CHEST: * No FDG avid neoplastic process. ABDOMEN/PELVIS: * No FDG avid neoplastic process. MUSCULOSKELETAL: * No FDG avid neoplastic process. MRI Brain 09/07/2023 report only: Normal exam. Multisequence multiplanar imaging of the brain was obtained. White matter signal characteristics are unremarkable without evidence of demyelination. Ventricles are nondilated. There is no susceptibility and gradient echo sequences. The diffusion-weighted images and corresponding ADC map show no focus of diffusion restriction or acute intracranial ischemia. Cerebellar tonsils are normal position. Contrast-enhanced imaging was acquired in the axial, sagittal, and coronal planes showing no focus of pathologic intracranial enhancement. Basilar cisterns are patent. No mass, midline shift, or vasogenic edema. Paranasal sinuses are clear. MRI THORACIC - 09/07/2023: Unremarkable MR of thoracic spine without obvious signal abnormality or pathologic contrast enhancement MR of the thoracic spine before and after contrast demonstrate that the thoracic vertebra and discs have normal height and signal there is normal signal within the thoracic cord . There is no spinal stenosis, foraminal stenosis, large disc herniation, or evidence of cord impingement. There is no pathologic contrast enhancement within the thoracic spine or cord. MRI CERVICAL - 08/22/2023: Focal lesion of the C3-C4 spinal cord, as seen on prior, favored to be slightly larger compared to prior exam without definite associated enhancement, and slight expansion of the spinal cord this level. Given persistence and spinal cord expansion, neoplasm should be considered versus additional etiology such as focal demyelinating lesion. Further evaluation with completion MRI of the entire neural axis including MR brain with contrast recommended to evaluate for additional lesions. CSF sampling may also be helpful. NUMBERING/ALIGNMENT: There are 7 cervical type vertebrae. Vertebral body alignment is appropriate. Facet alignment is appropriate. Vertebral body heights are well-maintained. BONE MARROW: Normal bone marrow signal throughout. No suspicious enhancing lesion. SPINAL CORD: Redemonstration of focal spinal cord lesion at the C3-C4 level which slightly expands the posterior spinal cord, is T2 bright, and does not demonstrate definite enhancement. The T2 signal has decreased in this lesion compared to prior exam, however size is overall slightly larger, with ill-defined margins, measuring approximately 13 x 6 x 5 mm. There is no definite associated enhancement. No definite low signal on gradient sequence to suggest hemorrhage. No additional spinal cord lesions present. HEAD: Visualized portions of the intracranial contents are unremarkable. SOFT TISSUES: Unremarkable paraspinal soft tissues. DEGENERATIVE FINDINGS: Mild degenerative disc disease throughout. Craniocervical junction: Normal alignment at the craniocervical junction without narrowing at the foramen magnum and at C1-C2. Mild degenerative changes of the dens. C2-C3: No significant neural foraminal or thecal sac narrowing. C3-C4: Minimal disc bulge and facet degeneration. No significant spinal canal or neural foraminal stenosis. C4-C5: Mild disc osteophyte complex and mild effacement of thecal sac anteriorly. No significant neural foraminal narrowing. C5-C6: No significant neural foraminal or thecal sac narrowing. Minimal disc bulge. C6-C7: No significant neural foraminal or thecal sac narrowing. C7-T1: No significant neural foraminal or thecal sac narrowing. Likely small perineural cysts within neural foramen. MRI Cervical 10/17/2022: IMPRESSION: 1. Focal signal abnormality in the cord at the C3-C4 level without associated enhancement. This may represent changes of demyelinating disease. Neoplasm is a less likely consideration. Trauma, infarct or infection are unlikely. Correlate clinically and consider follow-up MRI. 2. 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 MRI Brain w/Wo IVCOn 10/12/2022: Negative for acute infarct or acute intracranial process. No focal lesions in the brain. No evidence for demyelinating process. ASSESSMENT/PLAN Spinal cord lesion (hcc) Myelopathy (hcc) (primary encounter diagnosis) Noble's reflex Ladi Bernstein is a 23 year old female with chronic full body pain and weakness. Symptoms began in August, with progression of symptoms beginning in July 2023. Myelopathic exam. Per patient symptoms are progressing. HX of : Depression and ADHD . MRI CERVICAL - 08/22/2023: Focal lesion of the C3-C4 spinal cord, as seen on prior, favored to be slightly larger compared to prior exam without definite associated enhancement, and slight expansion of the spinal cord this level. Given persistence and spinal cord expansion, neoplasm should be considered versus additional etiology such as focal demyelinating lesion. Further evaluation with completion MRI of the entire neural axis including MR brain with contrast recommended to evaluate for additional lesions. CSF sampling may also be helpful. MRI THORACIC - 09/07/2023: Unremarkable MR of thoracic spine without obvious signal abnormality or pathologic contrast enhancement MRI Brain 09/07/2023 report only: Normal exam. She is scheduled to have updated MRIs of her brain, cervical, and thoracic spine completed tomorrow afternoon 09/24/2023. She is encouraged to complete imaging. I will present patient to tumor board on , October 27, 2023. After consultation with tumor board I will contact patient with recommendations. She was educated on tumor board at time of visit and is agreeable with tumor board presentation. 1. Imaging: Complete MRI brain, cervical ,thoracic - 10/25/2023 2. Physical Therapy: Encouraged to start 3. Medication:No changes 4. Referrals: None 5. Considerations: TBD 6. Follow up: Provider will call patient with next steps in treatment plan Imaging Ordered: None SIGNATURE: Amauri Calhoun APRN.CNP PATIENT NAME: Ladi Bernstein DATE: October 24, 2023 TIME: 1:59 PM documented in this encounter [facility] 10-24-2023 Note HNO ID: [id number] Author: AMAURI CALHOUN APRN.CNP Service: ? Author Type: Nurse Practitioner Type: Progress Notes Filed: 10/25/2023 12:00 Note Text: Spine Care Path Neck Pain - Chronic (> 12 weeks) Initial Exam SUBJECTIVE HISTORY OF PRESENT ILLNESS: Ladi Bernstein is a 23 year old female who presents with a chief complaint of low back, neck, arm, and leg pain and is seen in consultation requested by Dr. Kevin Holloway for an opinion regarding myelopathy . My final recommendations will be communicated back to the requesting physician by way of shared medical record or letter via US mail. Patient presents with Full body pain , today worst in bilateral hands and wrist. Denies accident/injury Onset of symptoms began in August 2022. She reports that initial symptoms began with bilateral feet numbness that then progressed upwards to bilateral lower extremities stopping at her waistline. She reported symptoms at that time to primary care provider and had x-rays completed. She states that then numbness began progressing to her chest and hands. After onset numbness to chest and hands to begin experiencing a squeezing sensation to her rib pain and full body pain along with weakness to all extremities. When the symptoms occurred she went to the emergency department at [facility] where she was advised to see a neurologist. She then went to [facility] where shehad continuation and worsening of symptoms and had a CT of brain and was once again referred to see a neurologist. She then established with Dr. Garcia at [facility]. She states initially she was diagnosed with transverse myelitis where she had a spinal tap completed after cervical spine lesion was noted on MRI. Patient reports that she was told results were inconclusive. While she was her symptoms improved in her second trimester. She gave in March 2023 to a premature son. After giving son was in the NICU for approximately 4 months. She states that during this time symptoms were mild. She began having increased pain and symptoms in July 2023. She states that after experienced an increase in pain for 3 weeks she was attempting to cut her dinner and the pain intensified and she began having sensations that her hands and fingers were breaking along with numbness. She reports that she began having dexterity difficulties with inability to grasp items and was dropping items frequently. She was once again evaluated by her neurologist with new MRI imaging completed at that time. She states that the lesion could not be the lesion had could not be biopsied increased. She states that she was also told that she had FND and was referred to a second. At [facility]. She has recently been seen and evaluated by Dr. Holloway. After her initial evaluation with Dr. Holloway she was admitted to the hospital 09/20/2023 through 09/27/2023. During admission lumbar puncture and laboratory studies were completed. At discharge she went to a rehab facility from 09/27/2023 through 10/04/2023. She reports that she has been in a wheelchair due to difficulty with balance and ambulation since 09/27/2023. She has recently followed up with Dr. Holloway where a referral to neuro-oncology was placed. At time of today's appointment she states that when she attempted to make neuro oncology consult appointment along with spine surgery consult appointment she was placed onto this providers schedule. Per Dr. Holloway note 10/04/2023: DISEASE SUMMARY Date of onset: August 2022 Date of diagnosis of MS: N/A Disease course at onset: Relapsing-Remitting Current disease course: Relapsing-Remitting Previous disease therapies: - IVMP x3 days (August 23-09/2023) Current disease therapy: None Most recent MRI brain: 09/07/2023 (no lesions) Most recent MRI cervical spine: 08/22/2023 (non GdE C2/3 lesion, increased in size vs. 08/15/2022) Most recent MRI thoracic spine: 09/07/2023 (no lesions) CSF: - 12/09/2022 (RBC 0, WBC 10 [lymphocytic], Glucose 64, Protein 15.3, IgG index 2.5, OCBs not done) - 09/21/2023 (RBC 366, WBC 12 [lymphocytic], Glucose 67, Protein 50, IgG index 1.22, OCBs present, VDRL negative, HSV negative, cytology negative) JCV serology result and date: None OCT: 09/20/2023 (normal) Serum: - 2023: AQP4 Ab negative, copper wnl, vitamin B6 wnl,vitamin E wnl, vitamin B12/MMA wnl, syphilis negaitve, HIV negative, Lyme negative, HTLV negative, CRP wnl, CDS1 negative Systemic imaging: - PET whole body 09/22/2023: few likely reactive hypermetabolic cervical LN but otherwise unremarkable Hector, patient's fiance, present with patient consent Arrived in wheel chair Former smoker - quit 2021 Not currently working She is right handed Neck: Pain localized to Entire neck Pain described as aching, continuous, breaking, numbness, weakness Radiation:BUE hands all finger, Numbness/Tingli (more content not included)... [facility] 10-21-2023 Telephone encounter Note Provider called and spoke with patient regarding upcoming appointment. She was verified by name and birthdate at time of call. At time of call patient states that she thought that she was being evaluated by spine surgery and also a neurology oncologist. She states that she believes that there has been some confusion with the scheduling process. I informed patient that I have reached out to the spine scheduling team to assist with spine surgery consultation. At this time keep will keep patient on my schedule, if we do not hear from the spine scheduling team by Tuesday will change patient's appointment to a virtual appointment to assist with obtaining proper consultations. Patient was agreeable to this plan. [facility] Work Phone: 10-21-2023 Miscellaneous Notes Provider called and spoke with patient regarding upcoming appointment. She was verified by name and birthdate at time of call. At time of call patient states that she thought that she was being evaluated by spine surgery and also a neurology oncologist. She states that she believes that there has been some confusion with the scheduling process. I informed patient that I have reached out to the spine scheduling team to assist with spine surgery consultation. At this time keep will keep patient on my schedule, if we do not hear from the spine scheduling team by Tuesday will change patient's appointment to a virtual appointment to assist with obtaining proper consultations. Patient was agreeable to this plan. documented in this encounter [facility] 10-18-2023 Telephone encounter Note Please send to surgical spine for triage: Referring: Kevin Holloway MD Dx: Cervical spine lesion (with radiographic growth) __ Patient: Ladi Bernstein Address: Ladi Bernstein [id number] [place] [address] Per Triage: Ladi Bernstein is a 23 year old female with ADHD, depression and history of relapsing cervical myelopathy. She presented from [facility] for relapsing generalized weakness after , pain, and ascending sensory changes. She presented in 08/2022 with subacute myelopathy with imaging demonstrating a lesion in her C-spine. These symptoms improved during and in 08/2023 started to have pain and ascending numbness and weakness. She was treated with 3 days of IV steroids without improvement. Repeat MRI C spine now with findings concerning for an expansile lesion in the same location as previously non-expansile lesion which is most concerning for demyelinating lesion. She was admitted to general neurology service for further evaluation and management. Her neurologic exam with relatively strong however largely limited by pain, sensory changes up to waist elbow, symmetric reflexes, with functional overlay. Given unclear nature of condition and lack of response to IV steroids it was discussed with Dr. Holloway the plan for therapy, pain control, and imaging surveillance. Her pain regimen was optimized to Lyrica 150 mg BID, Baclofen 5 mg TID, Nortriptyline 10 -> 20 mg QHS. PT and OT skilled her for acute rehab. She was discharged to acute rehab in stable condition. Patient expectations: New Consult Tumor Specifics: Location: spine Previous Evaluations: Cervical spine MRI 08/22/23 FINDINGS: NUMBERING/ALIGNMENT: There are 7 cervical type vertebrae. Vertebral body alignment is appropriate. Facet alignment is appropriate. Vertebral body heights are well-maintained. BONE MARROW: Normal bone marrow signal throughout. No suspicious enhancing lesion. SPINAL CORD: Redemonstration of focal spinal cord lesion at the C3-C4 level which slightly expands the posterior spinal cord, is T2 bright, and does not demonstrate definite enhancement. The T2 signal has decreased in this lesion compared to prior exam, however size is overall slightly larger, with ill-defined margins, measuring approximately 13 x 6 x 5 mm. There is no definite associated enhancement. No definite low signal on gradient sequence to suggest hemorrhage. No additional spinal cord lesions present. HEAD: Visualized portions of the intracranial contents are unremarkable. SOFT TISSUES: Unremarkable paraspinal soft tissues. DEGENERATIVE FINDINGS: Mild degenerative disc disease throughout. Craniocervical junction: Normal alignment at the craniocervical junction without narrowing at the foramen magnum and at C1-C2. Mild degenerative changes of the dens. C2-C3: No significant neural foraminal or thecal sac narrowing. C3-C4: Minimal disc bulge and facet degeneration. No significant spinal canal or neural foraminal stenosis. C4-C5: Mild disc osteophyte complex and mild effacement of thecal sac anteriorly. No significant neural foraminal narrowing. C5-C6: No significant neural foraminal or thecal sac narrowing. Minimal disc bulge. C6-C7: No significant neural foraminal or thecal sac narrowing. C7-T1: No significant neural foraminal or thecal sac narrowing. Likely small perineural cysts within neural foramen. IMPRESSION: Focal lesion of the C3-C4 spinal cord, as seen on prior, favored to be slightly larger compared to prior exam without definite associated enhancement, and slight expansion of the spinal cord this level. Given persistence and spinal cord expansion, neoplasm should be considered versus additional etiology such as focal demyelinating lesion. Further evaluation with completion MRI of the entire neural axis including MR brain with contrast recommended to evaluate for additional lesions. CSF sampling may also be helpful. Uzma Gonzalez APRN.AUTOMATIC GRINDER OPERATOR October 18, 2023 [facility] 10-18-2023 Miscellaneous Notes Please send to surgical spine for triage: Referring: Kevin Holloway MD Dx: Cervical spine lesion (with radiographic growth) __ Patient: Ladi Bernstein Address: Ladi Bernstein [id number] [place] [address] Per Triage: Ladi Bernstein is a 23 year old female with ADHD, depression and history of relapsing cervical myelopathy. She presented from [facility] for relapsing generalized weakness after , pain, and ascending sensory changes. She presented in 08/2022 with subacute myelopathy with imaging demonstrating a lesion in her C-spine. These symptoms improved during and in 08/2023 started to have pain and ascending numbness and weakness. She was treated with 3 days of IV steroids without improvement. Repeat MRI C spine now with findings concerning for an expansile lesion in the same location as previously non-expansile lesion which is most concerning for demyelinating lesion. She was admitted to general neurology service for further evaluation and management. Her neurologic exam with relatively strong however largely limited by pain, sensory changes up to waist elbow, symmetric reflexes, with functional overlay. Given unclear nature of condition and lack of response to IV steroids it was discussed with Dr. Holloway the plan for therapy, pain control, and imaging surveillance. Her pain regimen was optimized to Lyrica 150 mg BID, Baclofen 5 mg TID, Nortriptyline 10 -> 20 mg QHS. PT and OT skilled her for acute rehab. She was discharged to acute rehab in stable condition. Patient expectations: New Consult Tumor Specifics: Location: spine Previous Evaluations: Cervical spine MRI 08/22/23 FINDINGS: NUMBERING/ALIGNMENT: There are 7 cervical type vertebrae. Vertebral body alignment is appropriate. Facet alignment is appropriate. Vertebral body heights are well-maintained. BONE MARROW: Normal bone marrow signal throughout. No suspicious enhancing lesion. SPINAL CORD: Redemonstration of focal spinal cord lesion at the C3-C4 level which slightly expands the posterior spinal cord, is T2 bright, and does not demonstrate definite enhancement. The T2 signal has decreased in this lesion compared to prior exam, however size is overall slightly larger, with ill-defined margins, measuring approximately 13 x 6 x 5 mm. There is no definite associated enhancement. No definite low signal on gradient sequence to suggest hemorrhage. No additional spinal cord lesions present. HEAD: Visualized portions of the intracranial contents are unremarkable. SOFT TISSUES: Unremarkable paraspinal soft tissues. DEGENERATIVE FINDINGS: Mild degenerative disc disease throughout. Craniocervical junction: Normal alignment at the craniocervical junction without narrowing at the foramen magnum and at C1-C2. Mild degenerative changes of the dens. C2-C3: No significant neural foraminal or thecal sac narrowing. C3-C4: Minimal disc bulge and facet degeneration. No significant spinal canal or neural foraminal stenosis. C4-C5: Mild disc osteophyte complex and mild effacement of thecal sac anteriorly. No significant neural foraminal narrowing. C5-C6: No significant neural foraminal or thecal sac narrowing. Minimal disc bulge. C6-C7: No significant neural foraminal or thecal sac narrowing. C7-T1: No significant neural foraminal or thecal sac narrowing. Likely small perineural cysts within neural foramen. IMPRESSION: Focal lesion of the C3-C4 spinal cord, as seen on prior, favored to be slightly larger compared to prior exam without definite associated enhancement, and slight expansion of the spinal cord this level. Given persistence and spinal cord expansion, neoplasm should be considered versus additional etiology such as focal demyelinating lesion. Further evaluation with completion MRI of the entire neural axis including MR brain with contrast recommended to evaluate for additional lesions. CSF sampling may also be helpful. Uzma Gonzalez APRN.MEEK October 18, 2023 Patient Info Patient Name Sex Ladi Barragan ([id number]) Female 2000 Order Information Date and Time Department Ordering Authorizing 10/04/2023 4:50 PM [facility] Aldo Alvarado Daniel Order Providers Authorizing Provider Encounter Provider Kevin Holloway MD Ontaneda, Daniel, MD Future Order Information Expires 10/03/24 Associated Diagnoses Spinal cord lesion (HCC) [G95.9] Reason for Exam Priority: Routine Dx: Spinal cord lesion (HCC) [G95.9 (ICD-10-CM)] Order Questions Question Answer [facility] Epic access? Yes [facility] ADT-Related Order Information Appointments for this Order Date/Time Provider Department 10/24/23 2:00 PM - 45 min Amauri Calhoun APRN.MEEK Spine Med [facility] Priority and Order Details Priority Class Routine Radha Internal Referral Order History Outpatient Date/Time Action Taken User Additional Information 10/04/23 1650 Sign Aldo Purvis MD documented in this encounter [facility] 10-18-2023 Telephone encounter Note Patient Info Patient Name Sex Ladi Barragan ([id number]) Female 2000 Order Information Date and Time Department Ordering Authorizing 10/04/2023 4:50 PM [facility] Aldo Alvarado Daniel Order Providers Authorizing Provider Encounter Provider Kevin Holloway MD Ontaneda, Daniel, MD Future Order Information Expires 10/03/24 Associated Diagnoses Spinal cord lesion (HCC) [G95.9] Reason for Exam Priority: Routine Dx: Spinal cord lesion (HCC) [G95.9 (ICD-10-CM)] Order Questions Question Answer [facility] Epic access? Yes [facility] ADT-Related Order Information Appointments for this Order Date/Time Provider Department 10/24/23 2:00 PM - 45 min Amauri Calhoun APRN.AUTOMATIC GRINDER OPERATOR Spine Med [facility] Priority and Order Details Priority Class Routine Radha Internal Referral Order History Outpatient Date/Time Action Taken User Additional Information 10/04/23 1650 Sign Aldo Purvis MD [facility] 10-04-2023 History of Present illness Narrative Images from the original note were not included. [facility] FOLLOWUP/ESTABLISHED VIRTUAL PATIENT VISIT PRINCIPAL NEUROLOGIC DIAGNOSIS: Cervical myelopathy DISEASE SUMMARY Date of onset: August 2022 Date of diagnosis of MS: N/A Disease course at onset: Relapsing-Remitting Current disease course: Relapsing-Remitting Previous disease therapies: - IVMP x3 days (August 23-09/2023) Current disease therapy: None Most recent MRI brain: 09/07/2023 (no lesions) Most recent MRI cervical spine: 08/22/2023 (non GdE C2/3 lesion, increased in size vs. 08/15/2022) Most recent MRI thoracic spine: 09/07/2023 (no lesions) CSF: - 12/09/2022 (RBC 0, WBC 10 [lymphocytic], Glucose 64, Protein 15.3, IgG index 2.5, OCBs not done) - 09/21/2023 (RBC 366, WBC 12 [lymphocytic], Glucose 67, Protein 50, IgG index 1.22, OCBs present, VDRL negative, HSV negative, cytology negative) JCV serology result and date: None OCT: 09/20/2023 (normal) Serum: - 2023: AQP4 Ab negative, copper wnl, vitamin B6 wnl,vitamin E wnl, vitamin B12/MMA wnl, syphilis negaitve, HIV negative, Lyme negative, HTLV negative, CRP wnl, CDS1 negative Systemic imaging: - PET whole body 09/22/2023: few likely reactive hypermetabolic cervical LN but otherwise unremarkable CHIEF COMPLAINT: Review diagnostic testing results and discuss implications INTERVAL HISTORY: Patient provided consent to perform the visit over the phone ([employer] did not work for her). The patient is not accompanied by anyone. She is at rehab still. The patient was last seen 09/20/2023. Since the patient's last visit the patient was admitted to hospital 09/20/2023 - 09/27/2023 and discharged to acute rehab. Although she feels about the same in terms of her strength. She is using a wheelchair and a walker to ambulate. She is planned to be discharged on Tuesday. Refer to patient-entered data. Neuro-QoL Functions (higher=better functioning) Flowsheet Row Office Visit from 09/20/2023 in [facility] Upper Extremity Domain T Score 35 Lower Extremity Domain T Score 33 Cognitive Function Domain T Score 38 Positive Affect Well Being T Score -- Ability To Participate In Social Roles T Score 29 Satisfaction With Social Roles T Score 32 Neuro-QoL Symptoms (higher=worse symptoms) Flowsheet Row Office Visit from 09/20/2023 in [facility] Sleep Domain T Score 59 Fatigue Domain T Score 64 Anxiety Domain T Score 57 Depression Domain T Score 49 Stigma Domain T Score 60 Emotional Behavior Dyscontrol T Score -- has a past medical history of ADHD (attention deficit hyperactivity disorder), Depression, and Endometriosis. has a current medication list which includes the following prescription(s): iv contrast, iv contrast, iv contrast, baclofen, nortriptyline, cholecalciferol, pregabalin, baclofen, vyvanse, and [DISCONTINUED] gabapentin. EXAM: [facility] 05/27/2017 Telephone visit. RESULTS: CBC + Diff Component Value Date WBC 7.37 09/26/2023 HB 12.8 09/26/2023 HCT 39.2 09/26/2023 PLT 237 09/26/2023 ABSLYMPH 1.87 09/20/2023 No results found for: VITD25 CMP Component Value Date AST 12 (L) 09/20/2023 GLUC 121 (H) 09/26/2023 BUN 17 09/26/2023 CREAT 0.77 09/26/2023 NA 139 09/26/2023 K 4.4 09/26/2023 CHLOR 106 (H) 09/26/2023 ALT 7 09/20/2023 ASSESSMENT/PLAN: 23 year old right handed female with cervical myelopathy and other relevant PMHx ADHD and depression presenting for follow up. She had onset of neurological symptoms around August 2022 progressively and subacutely consistent with myelopathy and found to have a C2/3 non-enhancing lesion and treated with Medrol dose-pack without improvement. She had improvement in symptoms with but has had recurrence of subacute progressive symptoms post- starting around July 2023 with MRI demonstrating expansion in the size of the previously noted lesion again without GdE. The remainder of neuroimaging has been unremarkable. CSF workup has demonstrated lymphocytic pleocytosis and elevated IgG index and presence of OCBs. Systemic imaging has been unremarkable. She has been treated again with 3 days of IVMP in August 2023 without improvement. Her neurological examination has evidence of TURNER AND FORMER AUTOMATIC injury (in addition to possibly non-organic overlay symptoms). She was admitted to hospital for expedited workup and was discharged to [facility] in early September 2023 although she has noticed much improvement. Overall, the etiology of myelopathy at this time remains unclear with broad differentials but possibility of neoplastic etiology is raised given the increase in size, the expansile appearance of the lesion, and lack of response to IVMP. However, other causes including inflammatory given the presence of pleocytosis, elevated IgG index, and OCBs are also possible. Given the sparse evidence for active and ongoing T[employer]MER [employer]OM[employer] inflammation, we would hold off on additional immunotherapy and will instead continue with close surveillance as outlined below. PLAN: - Neuro-oncology evaluation. - Repeat neuroimaging in about 3 months or sooner pending neuro-oncology evaluation (ordered with demyelinating protocol but could be adjusted pending above). - Follow up in 3 months after above. [facility] on 10/04/23 MRI BRAIN WO/W IVCON MRI CERVICAL SPINE WO/W IVCON MRI THORACIC SPINE WO/W IVCON Seen with Dr. Holloway. I have communicated my name and active licensure. The patient's identity and physical location [[place] were verified at the time of this visit. Either the patient or their legal in store marketing representative has been informed of the risks and benefits of -- and alternatives to -- treatment through a remote evaluation and consents to proceed with the evaluation remotely. Aldo Purvis MD Neuroimmunology Fellow [facility] for Multiple Sclerosis [facility] STAFF PHYSICIAN NOTE OF PERSONAL INVOLVEMENT IN CARE I have reviewed the progress note obtained and documented by the fellow and I personally participated in the turcios components. I have discussed the case and management of the patient's care. The following comments revise or confirm relevant turcios components of their note. IMPRESSION: This is a 23 year old female with progressive myelopathic symptoms that have most recently been stable. MRI of the cervical spine showed a slightly expansile lesion in the upper cervical cord. She was admitted for expedited work-up and PET was negative. CSF was normal other than positive OCB. We will refer to neuro-oncology for an opinion. Plan for repeat MRI in November 2023. Follow clinical symptoms closely. All questions answered. SIGNATURE: Kevin Holloway MD PhD DATE of SERVICE: October 04, 2023 documented in this encounter [facility] 10-04-2023 Note HNO ID: [id number] Author: KEVIN HOLLOWAY MD Service: ? Author Type: Physician Type: Progress Notes Filed: 10/04/2023 18:39 Note Text: [facility] FOLLOWUP/ESTABLISHED VIRTUAL PATIENT VISIT PRINCIPAL NEUROLOGIC DIAGNOSIS: Cervical myelopathy DISEASE SUMMARY Date of onset: August 2022 Date of diagnosis of MS: N/A Disease course at onset: Relapsing-Remitting Current disease course: Relapsing-Remitting Previous disease therapies: - IVMP x3 days (August 23-09/2023) Current disease therapy: None Most recent MRI brain: 09/07/2023 (no lesions) Most recent MRI cervical spine: 08/22/2023 (non GdE C2/3 lesion, increased in size vs. 08/15/2022) Most recent MRI thoracic spine: 09/07/2023 (no lesions) CSF: - 12/09/2022 (RBC 0, WBC 10 [lymphocytic], Glucose 64, Protein 15.3, IgG index 2.5, OCBs not done) - 09/21/2023 (RBC 366, WBC 12 [lymphocytic], Glucose 67, Protein 50, IgG index 1.22, OCBs present, VDRL negative, HSV negative, cytology negative) JCV serology result and date: None OCT: 09/20/2023 (normal) Serum: - 2023: AQP4 Ab negative, copper wnl, vitamin B6 wnl,vitamin E wnl, vitamin B12/MMA wnl, syphilis negaitve, HIV negative, Lyme negative, HTLV negative, CRP wnl, CDS1 negative Systemic imaging: - PET whole body 09/22/2023: few likely reactive hypermetabolic cervical LN but otherwise unremarkable CHIEF COMPLAINT: Review diagnostic testing results and discuss implications INTERVAL HISTORY: Patient provided consent to perform the visit over the phone (zoom did not work for her). The patient is not accompanied by anyone. She is at rehab still. The patient was last seen 09/20/2023. Since the patient's last visit the patient was admitted to hospital 09/20/2023 - 09/27/2023 and discharged to acute rehab. Although she feels about the same in terms of her strength. She is using a wheelchair and a walker to ambulate. She is planned to be discharged on Tuesday. Refer to patient-entered data. Neuro-QoL Functions (higher=better functioning) Flowsheet Row Office Visit from 09/20/2023 in [facility] Upper Extremity Domain T Score 35 Lower Extremity Domain T Score 33 Cognitive Function Domain T Score 38 Positive Affect Well Being T Score -- Ability To Participate In Social Roles T Score 29 Satisfaction With Social Roles T Score 32 Neuro-QoL Symptoms (higher=worse symptoms) Flowsheet Row Office Visit from 09/20/2023 in [facility] Sleep Domain T Score 59 Fatigue Domain T Score 64 Anxiety Domain T Score 57 Depression Domain T Score 49 Stigma Domain T Score 60 Emotional Behavior Dyscontrol T Score -- has a past medical history of ADHD (attention deficit hyperactivity disorder), Depression, and Endometriosis. has a current medication list which includes the following prescription(s): iv contrast, iv contrast, iv contrast, baclofen, nortriptyline, cholecalciferol, pregabalin, baclofen, vyvanse, and [DISCONTINUED] gabapentin. EXAM: LMP 05/27/2017 Telephone visit. RESULTS: CBC + Diff Component Value Date WBC 7.37 09/26/2023 HB 12.8 09/26/2023 HCT 39.2 09/26/2023 PLT 237 09/26/2023 ABSLYMPH 1.87 09/20/2023 No results found for: VITD25 CMP Component Value Date AST 12 (L) 09/20/2023 GLUC 121 (H) 09/26/2023 BUN 17 09/26/2023 CREAT 0.77 09/26/2023 NA 139 09/26/2023 K 4.4 09/26/2023 CHLOR 106 (H) 09/26/2023 ALT 7 09/20/2023 ASSESSMENT/PLAN: 23 year old right handed female with cervical myelopathy and other relevant PMHx ADHD and depression presenting for follow up. She had onset of neurological symptoms around August 2022 progressively and subacutely consistent with myelopathy and found to have a C2/3 non-enhancing lesion and treated with Medrol dose-pack without improvement. She had improvement in symptoms with but has had recurrence of subacute progressive symptoms post- starting around July 2023 with MRI demonstrating expansion in the size of the previously noted lesion again without GdE. The remainder of neuroimaging has been unremarkable. CSF workup has demonstrated lymphocytic pleocytosis and elevated IgG index and presence of OCBs. Systemic imaging has been unremarkable. She has been treated again with 3 days of IVMP in August 2023 without improvement. Her neurological examination has evidence of TUR[employer] AND FORMER [employer]OMATIC injury (in addition to possibly non-organic overlay symptoms). She was admitted to hospital for expedited workup and was discharged to [facility] in early September 2023 although she has noticed much improvement. Overall, the etiology of myelopathy at this time remains unclear with broad differentials but possibility of neoplastic etiology is raised given the increase in size, the expansile appearance of the lesion, and lack of response to IVMP. However, other causes including inflammatory given the presence of pleocytosis, elevated IgG index, and OCBs are also possible. Given the sparse evidence for active and ongoing TUR[employer] FORMER [employer]OM[employer]IC inflammat (more content not included)... [facility] 09-30-2023 Telephone encounter Note Called patient and verified by name and . Patient currently in acute rehab. She has a virtual appointment with us on Tuesday but had expressed anxiety over her results so had requested a telephone call. I discussed CSF results including elevated IgG index and presence of OCBs. They are not diagnostic on their own but may indicate an inflammatory etiology. She was curious about possibility of MS. I discussed this would be a possibility but there are some atypical features including lack of DIS which prompt us to enquire further before giving this diagnosis given the implications. Overall, there are no indications to change the therapeutic plan over the weekend and we will discuss our monitoring plan with her on upcoming appointment (most likely serial radiological monitoring and also referral to neuro-oncology). Future Appointments Date Time Provider Department Center 10/03/2023 1:40 PM Julia Lombardo PA-C [facility] 10/04/2023 9:00 AM Kevin Holloway MD [facility] Patient agreeable with the above. Aldo Purvis MD Neuroimmunology Fellow [facility] Work Phone: 09-30-2023 Miscellaneous Notes Called patient and verified by name and . Patient currently in acute rehab. She has a virtual appointment with us on Tuesday but had expressed anxiety over her results so had requested a telephone call. I discussed CSF results including elevated IgG index and presence of OCBs. They are not diagnostic on their own but may indicate an inflammatory etiology. She was curious about possibility of MS. I discussed this would be a possibility but there are some atypical features including lack of DIS which prompt us to enquire further before giving this diagnosis given the implications. Overall, there are no indications to change the therapeutic plan over the weekend and we will discuss our monitoring plan with her on upcoming appointment (most likely serial radiological monitoring and also referral to neuro-oncology). Future Appointments Date Time Provider Department Center 10/03/2023 1:40 PM Julia Lombardo PA-C [facility] 10/04/2023 9:00 AM Kevin Holloway MD [facility] Patient agreeable with the above. Aldo Purvis MD Neuroimmunology Fellow documented in this encounter [facility] 09-27-2023 Note HNO ID: [id number] Author: LIBBY SUGGS, ? Service: Care Management Author Type: ? Type: Care Mgt Progress Note Filed: 09/27/2023 11:39 Note Text: [facility] PRECERT NOTE [facility] MEDICAID approved Inpatient Rehab Facility for [facility]. Precert approved through ?. For any additional questions regarding approvals, transport or care management needs, please contact the CM assigned to this patient in the Treatment Team. SIGNATURE: Libby Suggs DATE: September 27, 2023 TIME: 11:39 AM [facility] 09-27-2023 Note HNO ID: [id number] Author: JESSIKA GOULD MD Service: Neurology General Author Type: Physician Type: Progress Notes Filed: 09/27/2023 11:52 Note Text: TEAM PROGRESS NOTE (GENERAL) NEUROLOGY After 5pm and on weekends, please page [phone] (2NEUR) to contact the General Neurology Resident Bottom Ironer. SERVICE DATE: 09/27/2023 SERVICE TIME: 8:17 AM Subjective INTERVAL HISTORY: Increase nortriptyline seems to be helping overall. MEDICATIONS: Current medications and allergies reviewed. Recommended/planned medication changes discussed in detail in the A/P section below. Objective VITAL SIGNS 24 HOUR REVIEW: BP 102/50 Pulse 60 Temp 36.7 ?C (98 ?F) (Oral) Resp 18 Ht 162.6 cm (5' 4 ) Wt 92.5 kg (204 lb) LMP 05/27/2017 SpO2 99% BMI 35.02 kg/m? GENERAL: Awake/easily arousable. HEENT: Normocephalic/atraumatic RESPIRATORY: Normal respiratory effort. CARDIOVASCULAR: No lower extremity edema. GI: Not examined EXTREMITIES: No cyanosis, clubbing or edema. SKIN: Skin color, texture, turgor normal. No rashes or lesions. NEURO: Mental Status: Alert, oriented to person, place and time and Follows commands. Cranial Nerves: PERRL, visual vernon intact to confrontation, extraocular movements intact, facial sensation intact, face symmetric, no facial droop or ptosis, hearing intact to finger rub bilaterally, no dysarthria, palate elevate symmetrically, tongue protrudes midline, and shoulder shrug intact and symmetric Motor: Diffuse lower tone. Significant functional overlay in LE testing with give-way weakness. Sandar's sign + Lhermitte+ Upper Extremity Right Left Shoulder ABd (Axil C5-C6) 4+/5 4+/5 Elbow Flx (MusCtn C5/C6) 4+/5 4+/5 Elbow Ext (Radial C7) 4+/5 4+/5 Wrist Flx (Md/Ul C6-T1) 4+/5 4+/5 Wrist Ext (Radial C6-C8) 4+/5 4+/5 Lower Extremity Right Left Hip Flx (Lum Plx L1/L2/L3) 4-/5 4-/5 Knee Flx (Sciatic L5/S1) 4/5 4/5 Knee Ext (Femoral L3/L4) 4/5 4/5 Dorsiflexion (Peroneal L5) 4+/5 4+/5 Plantar Flx (Tibial S1) 4+/5 4+/5 Reflexes: UE and LE reflexes are equal and reactive. Brisk 2+ throughout, 3+ patellar bilaterally. Babinski down, Noble negative, Tromner negative, no ankle clonus. Sensation: LT diminished bilaterally distal to waist and bilaterally distal to elbow. Intact vibration throughout but slightly decreased LLE. Coordination: Finger-to- nose-finger intact bilaterally, unable to perform H2S due to weakness. Gait: Antalgic gait. CBC: Recent Labs 09/26/23 0732 09/25/23 0410 09/24/23 0712 09/23/23 0844 09/22/23 0558 09/21/23 0823 09/20/23 1411 WBC 7.37 7.64 7.41 6.57 6.84 6.71 7.12 HB 12.8 11.7 12.1 13.0 12.5 13.4 13.3 HCT 39.2 35.3* 37.0 40.6 38.5 41.5 41.4 PLT 237 247 241 245 278 287 298 MCV 86.0 85.1 86.2 85.5 84.1 83.5 85.0 RDWCV 14.9 14.7 15.0 14.7 14.9 15.1* 15.2* NEUTP -- -- -- -- -- -- 65.8 ABSNEUT -- -- -- -- -- -- 4.69 LYMPHP -- -- -- -- -- -- 26.3 MONOP -- -- -- -- -- -- 6.0 EODINP -- -- -- -- -- -- 1.0 BASOP -- -- -- -- -- -- 0.6 General Chemistry: Recent Labs 09/26/23 0732 09/25/23 0410 09/24/23 0712 09/23/23 0844 09/22/23 0558 09/21/23 0823 09/20/23 1411 NA 139 139 141 137 137 136 139 K 4.4 4.1 4.5 4.7 4.3 4.2 4.2 CHLOR 106* 106* 107* 104 104 103 103 CO2 24 24 23 17* 23 22 25 BUN 17 15 14 17 18 12 13 CREAT 0.77 0.80 0.87 0.82 0.97* 0.76 0.64 GLUC 121* 114* 102* 123* 100* 113* 102* CA 9.1 8.9 8.8 9.3 9.2 9.5 9.5 MG -- 1.9 2.0 2.0 2.1 2.1 -- P 4.0 5.2* 3.9 3.8 4.8 3.9 -- ANION 9 9 11 16 10 11 11 } Inflammatory: Recent Labs 09/20/23 1422 CRP <0.3 WSR 15 CSF Studies: Recent Labs 09/21/23 0124 CSFPROT 50* CSFGLUC 67 CRBC 366* Vitamin AND Hormone Levels: Recent Labs 09/20/23 1422 B12 495 QUALITY CHECKLIST: Lines, Drains, and Airways Drain Duration External Collection Device 09/25/23 1900 1 day Assessment AND Plan Problem List Transverse myelitis (HCC) (POA: Yes) Nicotine use disorder, F17.2 (POA: Yes) Obesity, Class II, BMI 35-39.9 (POA: Yes) ADHD (POA: Yes) Neuropathic pain (POA: Yes) Alteration in self-care ability (POA: Status not on file) Impaired mobility (POA: Status not on file) At risk for falls (POA: Status not on file) Assessment and Plan: Ladi Bernstein is a 23 year old female with ADHD, depression and history of relapsing cervical myelopathy. She presented from [facility] for relapsing generalized weakness after , pain, and ascending sensory changes. In August of 2022 she presented with subacute myelopathy with imaging demonstrating a non-enhancing lesion in the posterior aspect of the C-spine. Her symptoms improved and then in August of 2023 she noted first pain, and then ascening numbness and weakness. She was treated with 3 days of IV steroids without improvement. Repeat MRI C spine now with findings concerning for an expansile lesion in the same location as previously non-expansile lesion. (more content not included)... [facility] 09-26-2023 Note HNO ID: [id number] Author: KLAUS STEVENSON MD Service: Neurology General Author Type: Physician Type: Progress Notes Filed: 09/26/2023 13:35 Note Text: TEAM PROGRESS NOTE (GENERAL) NEUROLOGY After 5pm and on weekends, please page [phone] (2NEUR) to contact the General Neurology Resident Bottom Ironer. 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 Still with similar back of the head neck pain. MEDICATIONS: Current medications and allergies reviewed. Recommended/planned medication changes discussed in detail in the A/P section below. Objective VITAL SIGNS 24 HOUR REVIEW: BP (!) 107/44 Pulse (!) 53 Temp 36.6 ?C (97.9 ?F) (Oral) Resp 17 Ht 162.6 cm (5' 4 ) Wt 92.5 kg (204 lb) LMP 05/27/2017 SpO2 98% BMI 35.02 kg/m? GENERAL: Awake/easily arousable. HEENT: Normocephalic/atraumatic RESPIRATORY: Normal respiratory effort. CARDIOVASCULAR: No lower extremity edema. GI: Not examined EXTREMITIES: No cyanosis, clubbing or edema. SKIN: Skin color, texture, turgor normal. No rashes or lesions. NEURO: Mental Status: Alert, oriented to person, place and time and Follows commands. Cranial Nerves: PERRL, visual vernon intact to confrontation, extraocular movements intact, facial sensation intact, face symmetric, no facial droop or ptosis, hearing intact to finger rub bilaterally, no dysarthria, palate elevate symmetrically, tongue protrudes midline, and shoulder shrug intact and symmetric Motor: Diffuse lower tone. Significant functional overlay in LE testing with give-way weakness. Sandra's sign + Lhermitte+ Upper Extremity Right Left Shoulder ABd (Axil C5-C6) 4+/5 4+/5 Elbow Flx (MusCtn C5/C6) 4+/5 4+/5 Elbow Ext (Radial C7) 4+/5 4+/5 Wrist Flx (Md/Ul C6-T1) 4+/5 4+/5 Wrist Ext (Radial C6-C8) 4+/5 4+/5 Lower Extremity Right Left Hip Flx (Lum Plx L1/L2/L3) 4-/5 4-/5 Knee Flx (Sciatic L5/S1) 4/5 4/5 Knee Ext (Femoral L3/L4) 4/5 4/5 Dorsiflexion (Peroneal L5) 4+/5 4+/5 Plantar Flx (Tibial S1) 4+/5 4+/5 Reflexes: UE and LE reflexes are equal and reactive. Brisk 2+ throughout, 3+ patellar bilaterally. Babinski down, Noble negative, Tromner negative, no ankle clonus. Sensation: LT diminished bilaterally distal to waist and bilaterally distal to elbow. Intact vibration throughout but slightly decreased LLE. Coordination: Finger-to- nose-finger intact bilaterally, unable to perform H2S due to weakness. Gait: Antalgic gait. CBC: Recent Labs 09/25/2340909/24/2371109/23/[id number]/22/[id number]/21/2382209/20/23 1411 WBC 7.64 7.41 6.57 6.84 6.71 7.12 HB 11.7 12.1 13.0 12.5 13.4 13.3 HCT 35.3* 37.0 40.6 38.5 41.5 41.4 PLT 247 241 245 278 287 298 MCV 85.1 86.2 85.5 84.1 83.5 85.0 RDWCV 14.7 15.0 14.7 14.9 15.1* 15.2* NEUTP -- -- -- -- -- 65.8 ABSNEUT -- -- -- -- -- 4.69 LYMPHP -- -- -- -- -- 26.3 MONOP -- -- -- -- -- 6.0 EODINP -- -- -- -- -- 1.0 BASOP -- -- -- -- -- 0.6 General Chemistry: Recent Labs 09/25/2340909/24/2371109/23/2384309/22/2355709/21/23 0823 09/20/23 1411 NA 139 141 137 137 136 139 K 4.1 4.5 4.7 4.3 4.2 4.2 CHLOR 106* 107* 104 104 103 103 CO2 24 23 17* 23 22 25 BUN 15 14 17 18 12 13 CREAT 0.80 0.87 0.82 0.97* 0.76 0.64 GLUC 114* 102* 123* 100* 113* 102* CA 8.9 8.8 9.3 9.2 9.5 9.5 MG 1.9 2.0 2.0 2.1 2.1 -- P 5.2* 3.9 3.8 4.8 3.9 -- ANION 9 11 16 10 11 11 } Inflammatory: Recent Labs 09/20/23 1422 CRP <0.3 WSR 15 CSF Studies: Recent Labs 09/21/23 0124 CSFPROT 50* CSFGLUC 67 CRBC 366* Vitamin AND Hormone Levels: Recent Labs 09/20/23 1422 B12 495 QUALITY CHECKLIST: Lines, Drains, and Airways None Assessment AND Plan Problem List Transverse myelitis (HCC) (POA: Yes) Nicotine use disorder, F17.2 (POA: Yes) Obesity, Class II, BMI 35-39.9 (POA: Yes) ADHD (POA: Yes) Neuropathic pain (POA: Yes) Vasovagal episode (POA: Status not on file) Alteration in self-care ability (POA: Status not on file) Impaired mobility (POA: Status not on file) At risk for falls (POA: Status not on file) Assessment and Plan: Ladi Bernstein is a 23 year old female with ADHD and depression who presented from [facility] for relapsing generalized weakness after , pain, and ascending sensory changes. Neurologic exam with relatively strong however largely limited by pain, sensory changes up to waist elbow, symmetric reflexes, and overall functional overlay. Her presentation given her age, remission during then relapsing nature, with found central T2 lesion at C2-3, fits immune mediated myelopathy. Active issue at this time is pain. Disposition planning to [facility] with precert start 09/22. #Myelopathy #Generalized weakness #Ascending sensory deficit (LT, proprioception) #Neck pain, radicular arm pain #Neurogenic bladder (more content not included)... [facility] 09-25-2023 Note HNO ID: [id number] Author: KLAUS STEVENSON MD Service: Neurology General Author Type: Physician Type: Progress Notes Filed: 09/25/2023 14:06 Note Text: TEAM PROGRESS NOTE (GENERAL) NEUROLOGY After 5pm and on weekends, please page [phone] (2NEUR) to contact the General Neurology Resident Bottom Ironer. SERVICE DATE: 09/25/2023 SERVICE TIME: 0800 Subjective INTERVAL HISTORY: -NAEON -SBP 96-113, afebrile, on RA -Presenting neuropathic pain continues to be well managed. Neck pain continues (cervical spinal, perispinal, upper thoracic, traps), continues to describe shock-like sensation when bending neck forward. ACTIVE PLAN: -PT/OT, planning [facility] pending Precert - PMR consulted > [facility], Facility to started precert 09/22. -Continue new balcofen 5mg TID, lyrica 150mg BID (titrate as needed, increased 09/22), tylenol, topical lidocaine/Voltaren -Follow up [place] MEDICATIONS: Current medications and allergies reviewed. Recommended/planned medication changes discussed in detail in the A/P section below. Objective VITAL SIGNS 24 HOUR REVIEW: BP (!) 124/48 Pulse (!) 51 Temp 36.7 ?C (98.1 ?F) (Oral) Resp 16 Ht 162.6 cm (5' 4 ) Wt 92.5 kg (204 lb) LMP 05/27/2017 SpO2 97% BMI 35.02 kg/m? GENERAL: Awake/easily arousable. HEENT: Normocephalic/atraumatic RESPIRATORY: Normal respiratory effort. CARDIOVASCULAR: No lower extremity edema. GI: Not examined EXTREMITIES: No cyanosis, clubbing or edema. SKIN: Skin color, texture, turgor normal. No rashes or lesions. NEURO: Mental Status: Alert, oriented to person, place and time and Follows commands. Cranial Nerves: PERRL, visual vernon intact to confrontation, extraocular movements intact, facial sensation intact, face symmetric, no facial droop or ptosis, hearing intact to finger rub bilaterally, no dysarthria, palate elevate symmetrically, tongue protrudes midline, and shoulder shrug intact and symmetric Lhermitte+ Motor: Individual Muscle Group Testing: Significant functional overlay in LE testing with give-way weakness. Sandra's sign positive. Upper Extremity Right Left Shoulder ABd (Axil C5-C6) 4+/5 4+/5 Elbow Flx (MusCtn C5/C6) 4+/5 4+/5 Elbow Ext (Radial C7) 4+/5 4+/5 Wrist Flx (Md/Ul C6-T1) 4+/5 4+/5 Wrist Ext (Radial C6-C8) 4+/5 4+/5 Lower Extremity Right Left Hip Flx (Lum Plx L1/L2/L3) 4-/5 4-/5 Knee Flx (Sciatic L5/S1) 4/5 4/5 Knee Ext (Femoral L3/L4) 4/5 4/5 Dorsiflexion (Peroneal L5) 4+/5 4+/5 Plantar Flx (Tibial S1) 4+/5 4+/5 Reflexes: UE and LE reflexes are equal and reactive. Brisk 2+ throughout, 3+ patellar bilaterally. Babinski down, Noble negative, Tromner negative, no ankle clonus. Sensation: LT diminished bilaterally distal to waist and bilaterally distal to elbow. Intact vibration throughout but slightly decreased LLE. Coordination: Finger-to- nose-finger intact bilaterally, unable to perform H2S due to weakness. Gait: Not assessed. LABS/DATA: Most recent labs and imaging results reviewed. CBC: Recent Labs 09/25/23 0410 09/24/23 0712 09/23/23 0844 09/22/23 0558 09/21/23 0823 09/20/23 1411 WBC 7.64 7.41 6.57 6.84 6.71 7.12 HB 11.7 12.1 13.0 12.5 13.4 13.3 HCT 35.3* 37.0 40.6 38.5 41.5 41.4 PLT 247 241 245 278 287 298 MCV 85.1 86.2 85.5 84.1 83.5 85.0 RDWCV 14.7 15.0 14.7 14.9 15.1* 15.2* NEUTP -- -- -- -- -- 65.8 ABSNEUT -- -- -- -- -- 4.69 LYMPHP -- -- -- -- -- 26.3 MONOP -- -- -- -- -- 6.0 EODINP -- -- -- -- -- 1.0 BASOP -- -- -- -- -- 0.6 General Chemistry: Recent Labs 09/25/23 0410 09/24/23 0712 09/23/23 0844 09/22/23 0558 09/21/23 0823 09/20/23 1411 NA 139 141 137 137 136 139 K 4.1 4.5 4.7 4.3 4.2 4.2 CHLOR 106* 107* 104 104 103 103 CO2 24 23 17* 23 22 25 BUN 15 14 17 18 12 13 CREAT 0.80 0.87 0.82 0.97* 0.76 0.64 GLUC 114* 102* 123* 100* 113* 102* CA 8.9 8.8 9.3 9.2 9.5 9.5 MG 1.9 2.0 2.0 2.1 2.1 -- P 5.2* 3.9 3.8 4.8 3.9 -- ANION 9 11 16 10 11 11 } Inflammatory: Recent Labs 09/20/23 1422 CRP <0.3 WSR 15 CSF Studies: Recent Labs 09/21/23 0124 CSFPROT 50* CSFGLUC 67 CRBC 366* Vitamin AND Hormone Levels: Recent Labs 09/20/23 1422 B12 495 QUALITY CHECKLIST: Lines, Drains, and Airways Line Duration Peripheral 09/24/231999 Right Hand 22 Gauge <1 day Assessment AND Plan Problem List Transverse myelitis (HCC) (POA: Yes) Nicotine use disorder, F17.2 (POA: Yes) Obesity, Class II, BMI 35-39.9 (POA: Yes) ADHD (POA: Yes) Neuropathic pain (POA: Yes) Vasovagal episode (POA: Status not on file) Alteration in self-care ability (POA: Status not on file) Impaired mobility (POA: Status not on file) At risk for falls (POA: Status not on file) Assessment and Plan: Ms. Ladi Bernstein is a 23yo female with a history of ADHD and depression who presents from [facility] for recurrent recurrent generalized weakness, pain, and ascending (more content not included)... [facility] 09-24-2023 Note HNO ID: [id number] Author: KLAUS STEVENSON MD Service: Neurology General Author Type: Physician Type: Progress Notes Filed: 09/25/2023 14:40 Note Text: TEAM PROGRESS NOTE (GENERAL) NEUROLOGY After 5pm and on weekends, please page [phone] (2NEUR) to contact the General Neurology Resident Bottom Ironer. SERVICE DATE: 09/24/2023 SERVICE TIME: 0800 Subjective INTERVAL HISTORY: No acute events. Presenting neuropathic pain continues to be well managed. Neck pain continues (cervical spinal, perispinal, upper thoracic, traps). Feels the ultram makes her nauseas ACTIVE PLAN: -PT/OT, planning [place] pending Precert - [facility] Facility to started precert 09/22. -Continue new balcofen 5mg TID, lyrica 150mg BID (titrate as needed, increased 09/22), tylenol, topical lidocaine/Voltaren - Change ultram 50mg BID PRN, to Toradol given ultram causing nausea -Follow up Perico MEDICATIONS: Current medications and allergies reviewed. Recommended/planned medication changes discussed in detail in the A/P section below. Objective VITAL SIGNS 24 HOUR REVIEW: BP 117/75 Pulse 66 Temp 37 ?C (98.6 ?F) (Oral) Resp 18 Ht 162.6 cm (5' 4 ) Wt 92.5 kg (204 lb) LMP 05/27/2017 SpO2 100% BMI 35.02 kg/m? GENERAL: No acute distress HEENT: Normocephalic, atraumatic RESPIRATORY: No respiratory distress, no increased WOB, regular rate CARDIOVASCULAR: Regular rate and rhythm, Radial / DP pulses palpable ABDOMEN: Nondistended, no guarding EXTREMITIES / MSK: No cyanosis, No joint deformities SKIN: No visible rashes, warm and dry NEURO: Mental Status: Alert, oriented to person, place and time and Follows commands. Cranial Nerves: PERRL, visual vernon intact to confrontation, extraocular movements intact, facial sensation intact, face symmetric, no facial droop or ptosis, hearing intact to finger rub bilaterally, no dysarthria, palate elevate symmetrically, tongue protrudes midline, and shoulder shrug intact and symmetric Lhermitte+ Motor: No drift. No increased tone. Individual Muscle Group Testing: Upper Extremity Right Left Shoulder ABd (Axil C5-C6) 4/5 4/5 Elbow Flx (MusCtn C5/C6) 4/5 4/5 Elbow Ext (Radial C7) 4/5 4/5 Wrist Flx (Md/Ul C6-T1) 4/ 4/5 Wrist Ext (Radial C6-C8) 4/5 4/5 Lower Extremity Right Left Hip Flx (Lum Plx L1/L2/L3) -4/5 -4/5 Hip Ext (Sciatic L5-S1) -4/5 -4/ Knee Flx (Sciatic L5/S1) 4/5 4/5 Knee Ext (Femoral L3/L4) 4/5 4/5 Dorsiflexion (Peroneal L5) 4/5 4/5 Plantar Flx (Tibial S1) +4/5 +4/5 Reflexes: UE and LE reflexes are equal and reactive. Brisk 2+ throughout, 3+ patellar bilaterally. Babinski down, Noble negative, Tromner negative, no ankle clonus. Sensation: LT diminished bilaterally distal to waist and bilaterally distal to elbow. Intact vibration throughout but slightly decreased LLE. Reduce proprioception bilateral great toe (L>R), UE. Coordination: Finger-to- nose-finger intact bilaterally and Hkpb-ib-idjj intact bilaterally (in proportion to weakness) Gait: shuffling. LABS/DATA: Most recent labs and imaging results reviewed. CBC: Recent Labs 09/24/23 0712 09/23/23 0844 09/22/23 0558 09/21/23 0823 09/20/23 1411 WBC 7.41 6.57 6.84 6.71 7.12 HB 12.1 13.0 12.5 13.4 13.3 HCT 37.0 40.6 38.5 41.5 41.4 PLT 241 245 278 287 298 MCV 86.2 85.5 84.1 83.5 85.0 RDWCV 15.0 14.7 14.9 15.1* 15.2* NEUTP -- -- -- -- 65.8 ABSNEUT -- -- -- -- 4.69 LYMPHP -- -- -- -- 26.3 MONOP -- -- -- -- 6.0 EODINP -- -- -- -- 1.0 BASOP -- -- -- -- 0.6 General Chemistry: Recent Labs 09/24/23 0712 09/23/23 0844 09/22/23 0558 09/21/23 0823 09/20/23 1411 NA 141 137 137 136 139 K 4.5 4.7 4.3 4.2 4.2 CHLOR 107* 104 104 103 103 CO2 23 17* 23 22 25 BUN 14 17 18 12 13 CREAT 0.87 0.82 0.97* 0.76 0.64 GLUC 102* 123* 100* 113* 102* CA 8.8 9.3 9.2 9.5 9.5 MG 2.0 2.0 2.1 2.1 -- P 3.9 3.8 4.8 3.9 -- ANION 11 16 10 11 11 } Inflammatory: Recent Labs 09/20/23 1422 CRP <0.3 WSR 15 CSF Studies: Recent Labs 09/21/23 0124 CSFPROT 50* CSFGLUC 67 CRBC 366* Vitamin AND Hormone Levels: Recent Labs 09/20/23 1422 B12 495 QUALITY CHECKLIST: Lines, Drains, and Airways Line Duration Peripheral 09/20/23 1400 [facility] Facility Right Antecubital 20 Gauge 3 days Assessment AND Plan Problem List Transverse myelitis (HCC) (POA: Yes) Nicotine use disorder, F17.2 (POA: Yes) Obesity, Class II, BMI 35-39.9 (POA: Yes) ADHD (POA: Yes) Neuropathic pain (POA: Yes) Vasovagal episode (POA: Status not on file) Alteration in self-care ability (POA: Status not on file) Impaired mobility (POA: Status not on file) At risk for falls (POA: Status not on file) Assessment and Plan: Ms. Ladi Bernstein is a 23yo female with a history of ADHD and depression who presents from [facility] for recurrent recurrent generalized weakness, pain, and ascending sen (more content not included)... [facility] 09-23-2023 Note HNO ID: [id number] Author: ALFREDA STROUD ? Service: Pharmacy Author Type: Electrician Third Type: Plan of Care Filed: 09/23/2023 16:10 Note Text: PHARMACY BEDSIDE DELIVERY SERVICE Patient Name: Ladi Bernstein The marked outpatient medications were Filled at: [facility] and delivered to the patient's bedside to PATIENT Medication List START taking these medications baclofen 5 mg tablet Take 1 tablet by mouth three times a day. MEDICATION: DELIVERED pregabalin 100 mg capsule Commonly known as: LYRICA Take 1 capsule by mouth two times a day for 90 days MEDICATION: DELIVERED Walker Misc 1 Units one time only for 1 dose. MEDICATION: DELIVERED CONTINUE taking these medications VYVANSE 30 mg capsule Generic drug: lisdexamfetamine You might also be taking other medications not listed above. If you have questions about any of your other medications, talk to the person who prescribed them or your Primary Care Provider. STOP taking these medications methocarbamol 500 mg tablet Commonly known as: ROBAXIN Alfreda Portilloff PAGER: [phone] September 23, 2023 4:08 PM [facility] 09-23-2023 Note HNO ID: [id number] Author: FANNY PLEITEZ RN Service: Care Management Author Type: Registered Nurse Type: Care Mgt Progress Note Filed: 09/23/2023 15:56 Note Text: CARE MANAGEMENT WEEKEND PLANNING NOTE DISCHARGE OR POSSIBLE DISCHARGE Date/Time: POSSIBLE BUT NOT LIKELY Disposition: Rehab Facility - Precert Obtained: No Facility Name: [facility] Phone #: [phone] D/C Packet Completed: Yes - Location of Packet: on Chart Transport: Mode of Transportation: Ambulance Transportation Agency and Phone #: [facility] [phone] . Date of Trip: WILL CALL Trip # [id number] Type of Service: BLS Non-emergency Is Patient Medicaid Pending: No Discussion of financial coverage occurred with Patient . Econometrician Location: Main Destination: [facility] Financial Care Management Responsibility: None Other Concerns: Precert started by [facility]. IF approved over weekend could transition to facility. Weekend Rasper Machine Operator Pager #: Please see Treatment Team for Care Management Weekend/Holiday coverage. SIGNATURE: Fanny Pleitez RN PATIENT NAME: Ladi Bernstein DATE: September 23, 2023 TIME: 3:43 PM PAGER/CONTACT #: [phone] [facility] 09-23-2023 Note HNO ID: [id number] Author: FANNY PLEITEZ RN Service: Care Management Author Type: Registered Nurse Type: Care Mgt Progress Note Filed: 09/23/2023 15:52 Note Text: CARE MANAGEMENT WEEKEND PLANNING NOTE NO WEEKEND DISCHARGE Disposition: CASE MANAGMENT PROVIDER LIST: Rehab Facility Anticipated Discharge Date: Weekend Rasper Machine Operator Pager #: Please see Treatment Team for Care Management Weekend/Holiday coverage. Needs Prior to Discharge: To Be Determined;Accepting Facility;Precertification;Discharg e Transportation [place] of Choice Given: Yes Level of Care Discussed: Inpatient Rehab Facility Financial Disclosure Provided: Yes Financial Disclosure Comments: patient Provider List: Rehab Facility Provider list within the patient's requested geographic area shared with the patient/family: Yes of zip code: [address] Quality and resource use metrics shared with the patient that are relevant to the patient's goals of care and treatment preferences:: Yes Metrics: Potentially Preventable 30-day Post Discharge Readmission Rates;Skin Integrity;Incidence of Major Falls OT now recommending AR, do not believe home with OP is safe discharge. PT to come and see again today. Spoke with patient about new recommendations, she is agreeable to any AR, would prefer closer to home, but agreeable to referrals sent to [facility] [place] as well as multiple in [facility]. Awaiting response and updated PT notes. Patient will need precert. Count Includes [facility] and [facility] accepting, Patient's first choice is [facility]. Facility to start precert today. SIGNATURE: Fanny Pleitez RN PATIENT NAME: Ladi Bernstein DATE: September 23, 2023 TIME: 12:07 PM PAGER/CONTACT #: [phone] [facility] 09-23-2023 Note HNO ID: [id number] Author: KLAUS STEVENSON MD Service: Neurology General Author Type: Physician Type: Progress Notes Filed: 09/23/2023 16:16 Note Text: TEAM PROGRESS NOTE (GENERAL) NEUROLOGY After 5pm and on weekends, please page [phone] (2NEUR) to contact the General Neurology Resident Bottom Ironer. SERVICE DATE: 09/23/2023 SERVICE TIME: 0800 Subjective INTERVAL HISTORY: No acute events. Presenting neuropathic pain continues to be well managed. Neck pain continues (cervical spinal, perispinal, upper thoracic, traps). ACTIVE PLAN: -Continue new balcofen 5mg TID, lyrica 150mg BID (titrate as needed, increased 5/3), ultram 50mg BID PRN, tylenol, topical lidocaine/Voltaren -Follow up Perico -PT/OT, planning [place] MEDICATIONS: Current medications and allergies reviewed. Recommended/planned medication changes discussed in detail in the A/P section below. Objective VITAL SIGNS 24 HOUR REVIEW: BP (!) 102/45 Pulse (!) 53 Temp 36.6 ?C (97.9 ?F) (Oral) Resp 16 Ht 162.6 cm (5' 4 ) Wt 92.5 kg (204 lb) LMP 05/27/2017 SpO2 97% BMI 35.02 kg/m? GENERAL: No acute distress HEENT: Normocephalic, atraumatic RESPIRATORY: No respiratory distress, no increased WOB, regular rate CARDIOVASCULAR: Regular rate and rhythm, Radial / DP pulses palpable ABDOMEN: Nondistended, no guarding EXTREMITIES / MSK: No cyanosis, No joint deformities SKIN: No visible rashes, warm and dry NEURO: Mental Status: Alert, oriented to person, place and time and Follows commands. Cranial Nerves: PERRL, visual vernon intact to confrontation, extraocular movements intact, facial sensation intact, face symmetric, no facial droop or ptosis, hearing intact to finger rub bilaterally, no dysarthria, palate elevate symmetrically, tongue protrudes midline, and shoulder shrug intact and symmetric Lhermitte+ Motor: No drift. No increased tone. Individual Muscle Group Testing: Upper Extremity Right Left Shoulder ABd (Axil C5-C6) 4/5 4/5 Elbow Flx (MusCtn C5/C6) 4/5 4/5 Elbow Ext (Radial C7) 4/5 4/5 Wrist Flx (Md/Ul C6-T1) 4/5 4/5 Wrist Ext (Radial C6-C8) 4/5 4/5 Lower Extremity Right Left Hip Flx (Lum Plx L1/L2/L3) -4/5 -4/5 Hip Ext (Sciatic L5-S1) -4/5 -4/5 Knee Flx (Sciatic L5/S1) 4/5 4/5 Knee Ext (Femoral L3/L4) 4/5 4/5 Dorsiflexion (Peroneal L5) 4/5 4/5 Plantar Flx (Tibial S1) +4/5 +4/5 Reflexes: UE and LE reflexes are equal and reactive. Brisk 2+ throughout, 3+ patellar bilaterally. Babinski down, Noble negative, Tromner negative, no ankle clonus. Right hand UMN sign (inconsistent) Sensation: LT diminished bilaterally distal to waist and bilaterally distal to elbow. Intact vibration throughout but slightly decreased LLE. Reduce proprioception bilateral great toe (L>R), UE. Coordination: Finger-to- nose-finger intact bilaterally and Hzvw-ot-pfnz intact bilaterally (in proportion to weakness) Gait: shuffling. GENERAL: No acute distress HEENT: Normocephalic, atraumatic RESPIRATORY: No respiratory distress, no increased WOB, regular rate CARDIOVASCULAR: Regular rate and rhythm, Radial / DP pulses palpable ABDOMEN: Nondistended, no guarding EXTREMITIES / MSK: No cyanosis, No joint deformities SKIN: No visible rashes, warm and dry NEURO: Mental Status: Alert, oriented to person, place and time and Follows commands. Cranial Nerves: PERRL, visual vernon intact to confrontation, extraocular movements intact, facial sensation intact, face symmetric, no facial droop or ptosis, hearing intact to finger rub bilaterally, no dysarthria, palate elevate symmetrically, tongue protrudes midline, and shoulder shrug intact and symmetric Lhermitte+ Motor: No drift. No increased tone. Shaking/bouncing movements when attempting resistance tests. Individual Muscle Group Testing: Upper Extremity Right Left Shoulder ABd (Axil C5-C6) 4/5 4/5 Elbow Flx (MusCtn C5/C6) 4/5 4/5 Elbow Ext (Radial C7) 4/5 4/5 Wrist Flx (Md/Ul C6-T1) 4/5 4/5 Wrist Ext (Radial C6-C8) 4/5 4/5 Lower Extremity Right Left Hip Flx (Lum Plx L1/L2/L3) -4/5 -4/5 Hip Ext (Sciatic L5-S1) -4/5 -4/5 Knee Flx (Sciatic L5/S1) 4/5 4/5 Knee Ext (Femoral L3/L4) 4/5 4/5 Dorsiflexion (Peroneal L5) 4/5 4/5 Plantar Flx (Tibial S1) +4/5 +4/5 Reflexes: UE and LE reflexes are equal and reactive. Brisk 2+ throughout, 3+ patellar bilaterally. Babinski down, Noble negative, Tromner negative, no ankle clonus. Right hand UMN sign (inconsistent) Sensation: LT diminished bilaterally distal to waist and bilaterally distal to elbow. Intact vibration throughout but slightly decreased LLE. Reduce proprioception bilateral great toe (L>R), UE. Coordination: Finger-to- nose-finger intact bilaterally and Csxj-yy-ohhq intact bilaterally (in proportion to weakness) Gait: shuffling, more intact than would be suggested by individual muscle group testing LABS/DATA: Most recent labs and imaging results reviewed. CBC: Recent Labs (more content not included)... [facility] 09-23-2023 Note HNO ID: [id number] Author: KLAUS STEVENSON MD Service: Neurology General Author Type: Physician Type: Discharge Summary Filed: 10/03/2023 09:02 Note Text: Entered in error. Klaus Stevenson MD [facility] 09-23-2023 Note HNO ID: [id number] Author: ALFREDA STROUD ? Service: Pharmacy Author Type: Electrician Third Type: Plan of Care Filed: 09/23/2023 08:32 Note Text: Insurance investigation completed Patient has active prescription insurance: Yes - Patient's insurance is in-network with [facility] Insurance loaded into [place]: Yes Test claim was completed to verify insurance is active: Successful Any questions, please contact your medication client support coordinator. Pager #: [phone] [facility] 09-22-2023 Note HNO ID: [id number] Author: ELHAM ROSS RT(R) Service: Nuclear Medicine Author Type: Technologist Type: Progress Notes Filed: 09/22/2023 10:19 Note Text: RADIOLOGY SERVICE PROGRESS NOTE SERVICE DATE: 09/22/2023 SERVICE TIME: 10:16 AM PATIENT IDENTITY VERIFICATION COMPLETED USING TWO (2) STANDARD IDENTIFIERS: Name and Date of confirmed by patient verbally and Name and Date of confirmed by identification band FALL SCREENING: Has the patient had 2 falls in the last year or 1 fall with injury or currently using an Ambulatory Assistive Device (Walker, Cane, Wheelchair, Crutches, etc.)? No PATIENT GENDER DATA: .female : No ALLERGIES: Reviewed and unchanged MEDICATIONS REVIEWED: No PATIENT RELEVANT IMPLANT DATA REVIEWED: Not Applicable PATIENT PRESENTS WITH AN IMPLANTABLE OR ATTACHED SHEET ROCK TAPER HELPER: No CREATININE: Creatinine Date Value Ref Range Status 09/22/2023 0.97 (H) 0.58 - 0.96 mg/dL Final 09/21/2023 0.76 0.58 - 0.96 mg/dL Final 09/20/2023 0.64 0.58 - 0.96 mg/dL Final Estimated Glomerular Filtration Rate Date Value Ref Range Status 09/22/2023 83 >=60 mL/min/1.73m? Final Comment: Estimated Glomerular Filtration Rate (eGFR) is calculated using the 2020 CKD-EPI creatinine equation. This equation utilizes serum creatinine, sex, and age as parameters. The creatinine assay has traceable calibration to isotope dilution-mass spectrometry. Refer to KDIGO guidelines for clinical interpretation. In patients with unstable renal function, e.g. those with acute kidney injury, the eGFR may not accurately reflect actual GFR. P.O.C.T. RESULTS: N/A September 22, [address] PERFORMED: No IV SITE: Inpatient - refer to LDA documentation POST EXAM PIV STATUS: Inpatient see LDA documentation PROCEDURE TYPE: NM INJECT: PET/CT WHOLE BODY SCAN. 12.3 mCi F18 FDG. No other medications given.. ADMINISTRATION TIME: 1016 PATIENT DISCHARGED TO: Patient taken to IP transport area for return to RNF/ICU/ED. A Diagnostic radioactive procedure has taken place, with no further precautions necessary other than routine body substance precautions. More information regarding radiation safety can be found using this link: [email or web address] SIGNATURE: RT Hilario(R) PATIENT NAME: Ladi Bernstein DATE: September 22, 2023 TIME: 10:16 AM PAGER/CONTACT #: [facility] 09-22-2023 Note HNO ID: [id number] Author: RADHA SALGADO MD Service: Neurology General Author Type: Resident Type: Progress Notes Filed: 09/22/2023 09:57 Note Text: Documentation Query Based on your medical judgment of the clinical indicators outlined below, please clarify the condition: (Please type X next to your response and sign) Clinical Indicators: 09/19 Pt. admitted. 09/19 HANDP and 09/20 General Neurology progress notes state: Assessment and Plan: Ms. Ladi Bernstein is a 23yo female with a history of ADHD and depression ..... PAST MEDICAL HISTORY: Depression PLAN: #Depression -continue lisdexamfetamine (vyvanse) 30mg daily -consider starting SNRI for MDD history and neurogenic pain Please clarify/document the type of depression: X Depression unspecified Depression recurrent Other, please specify Radha Salgado MD PhD PGY-2 Neurology Resident [facility] 09-22-2023 Note HNO ID: [id number] Author: KLAUS STEVENSON MD Service: Neurology General Author Type: Physician Type: Progress Notes Filed: 09/22/2023 17:07 Note Text: TEAM PROGRESS NOTE (GENERAL) NEUROLOGY After 5pm and on weekends, please page [phone] (2NEUR) to contact the General Neurology Resident Bottom Ironer. SERVICE DATE: 09/22/2023 SERVICE TIME: 0800 Subjective INTERVAL HISTORY: No acute events. Pain more managed today. -CSF (09/20): Index 1.22, HSV- ACTIVE PLAN: -Obtain PET-CT whole body -Unlikely to IVIG/PLEX this admission -Continue new balcofen 5mg TID, lyrica 100mg BID (titrate as needed), ultram 50mg BID PRN, tylenol, topical lidocaine/Voltaren -Follow up Perico recommendations -PT/OT, both recommend outpatient therapy MEDICATIONS: Current medications and allergies reviewed. Recommended/planned medication changes discussed in detail in the A/P section below. Objective VITAL SIGNS 24 HOUR REVIEW: BP 96/62 Pulse (!) 58 Temp 36.9 ?C (98.4 ?F) (Oral) Resp 16 Ht 162.6 cm (5' 4 ) Wt 92.5 kg (204 lb) LMP 05/27/2017 SpO2 97% BMI 35.02 kg/m? GENERAL: No acute distress HEENT: Normocephalic, atraumatic RESPIRATORY: No respiratory distress, no increased WOB, regular rate CARDIOVASCULAR: Regular rate and rhythm, Radial / DP pulses palpable ABDOMEN: Nondistended, no guarding EXTREMITIES / MSK: No cyanosis, No joint deformities SKIN: No visible rashes, warm and dry NEURO: Mental Status: Alert, oriented to person, place and time and Follows commands. Cranial Nerves: PERRL, visual vernon intact to confrontation, extraocular movements intact, facial sensation intact, face symmetric, no facial droop or ptosis, hearing intact to finger rub bilaterally, no dysarthria, palate elevate symmetrically, tongue protrudes midline, and shoulder shrug intact and symmetric Lhermitte+ Motor: No drift. No increased tone. Individual Muscle Group Testing: Upper Extremity Right Left Shoulder ABd (Axil C5-C6) 4/5 4/5 Elbow Flx (MusCtn C5/C6) 4/5 4/5 Elbow Ext (Radial C7) 4/5 4/5 Wrist Flx (Md/Ul C6-T1) 4/5 4/5 Wrist Ext (Radial C6-C8) 4/5 4/5 Lower Extremity Right Left Hip Flx (Lum Plx L1/L2/L3) -4/5 -4/5 Hip Ext (Sciatic L5-S1) -4/5 -4/5 Knee Flx (Sciatic L5/S1) 4/5 4/5 Knee Ext (Femoral L3/L4) 4/5 4/5 Dorsiflexion (Peroneal L5) 4/5 4/5 Plantar Flx (Tibial S1) +4/5 +4/5 Reflexes: UE and LE reflexes are equal and reactive. Brisk 2+ throughout, 3+ patellar bilaterally. Babinski down, Noble negative, Tromner negative, no ankle clonus. Right hand UMN sign (inconsistent) Sensation: LT diminished bilaterally distal to waist and bilaterally distal to elbow. Intact vibration throughout but slightly decreased LLE. Reduce proprioception bilateral great toe (L>R), UE. Coordination: Finger-to- nose-finger intact bilaterally and Ihrn-fq-djmz intact bilaterally (in proportion to weakness) Gait: shuffling. GENERAL: No acute distress HEENT: Normocephalic, atraumatic RESPIRATORY: No respiratory distress, no increased WOB, regular rate CARDIOVASCULAR: Regular rate and rhythm, Radial / DP pulses palpable ABDOMEN: Nondistended, no guarding EXTREMITIES / MSK: No cyanosis, No joint deformities SKIN: No visible rashes, warm and dry NEURO: Mental Status: Alert, oriented to person, place and time and Follows commands. Cranial Nerves: PERRL, visual vernon intact to confrontation, extraocular movements intact, facial sensation intact, face symmetric, no facial droop or ptosis, hearing intact to finger rub bilaterally, no dysarthria, palate elevate symmetrically, tongue protrudes midline, and shoulder shrug intact and symmetric Lhermitte+ Motor: No drift. No increased tone. Individual Muscle Group Testing: Upper Extremity Right Left Shoulder ABd (Axil C5-C6) 4/5 4/5 Elbow Flx (MusCtn C5/C6) 4/5 4/5 Elbow Ext (Radial C7) 4/5 4/5 Wrist Flx (Md/Ul C6-T1) 4/ 4/5 Wrist Ext (Radial C6-C8) 4/5 4/5 Lower Extremity Right Left Hip Flx (Lum Plx L1/L2/L3) -4/5 -4/5 Hip Ext (Sciatic L5-S1) -4/5 -4/5 Knee Flx (Sciatic L5/S1) 4/5 4/5 Knee Ext (Femoral L3/L4) 4/5 4/5 Dorsiflexion (Peroneal L5) 4/5 4/5 Plantar Flx (Tibial S1) +4/5 +4/5 Reflexes: UE and LE reflexes are equal and reactive. Brisk 2+ throughout, 3+ patellar bilaterally. Babinski down, Noble negative, Tromner negative, no ankle clonus. Right hand UMN sign (inconsistent) Sensation: LT diminished bilaterally distal to waist and bilaterally distal to elbow. Intact vibration throughout but slightly decreased LLE. Reduce proprioception bilateral great toe (L>R), UE. Coordination: Finger-to- nose-finger intact bilaterally and Ksdm-dm-ljfl intact bilaterally (in proportion to weakness) Gait: shuffling, more intact than would be suggested by individual muscle group testing LABS/DATA: Most recent labs and imaging results reviewed. CBC: Recent Labs 09/22/23 0558 09/21/23 0823 09/20/23 1411 WBC 6 (more content not included)... [facility] 09-21-2023 Note HNO ID: [id number] Author: DAIANA PERRY RN Service: Care Management Author Type: Registered Nurse Type: Care Mgt Initial Assessment Filed: 09/21/2023 10:41 Note Text: CARE MANAGEMENT: ASSESSMENT AND DISCHARGE PLAN SERVICE DATE: September 21, 2023 SERVICE TIME: 1030 PCP: No primary care provider on file. Primary Contact: Extended Emergency Contact Information Primary Emergency Contact: HECTOR PETERS Mobile Relation: Significant other Admission Status: Inpatient Insurance Provider: [employer] Discharge Planning requested by: Per Department Practice Potential Transition Plans Rehab Facility Advance Directives Current Advance Directive: None Data Collection Technician Attempted to Assist with AD Completion: Yes Action: Education Provided;Patient Unwilling Current Living Arrangements and Support Lives with: Spouse/significant other, Children ((Son- age 5 months)) Type of Residence: Private Residence (Apartment or Condo) (Apartment- 2nd floor. [address] Does the patient have to climb stairs at home?: Yes;stairs outside the home (( [address]. Pt. will then be on the second floor which is where pt. lives.)) Support: Spouse/significant other How do you manage to accomplish the following: Independent: Medication Management Needs Assistance: Ambulation;Meals/Meal Prep;Bathe/Shower ((Supervision with shower.. pt. is able to bathe self. Pt. is able to cook 1-2 days/week.. has difficulty chopping and completing all the steps for a meal. Pt. holds onto Fiance for physical support.)) Dependent: Transportation to appointments/community;Dress Current Services/Equipment Current Post-Acute Service(s): DME Current DME Type: Grab bars, Other: See Comment (Pt. has access to a rolllator.) Discharge Planning Patient Goal(s): Other: See Comment Patient's Other Post-Acute Care Goal(s): To be able to do two things a day instead of one. [place] of Choice Explained: [place] of Choice Given: No Reason Not Given: Unable to complete with this assessment - revisit Discharge Planning Participant(s): Patient;Spouse/significant other Patient/Family Comments: Hector Peters (SIG)-- [phone] Caregiver Assessment: Caregiver is ready, willing and able to meet the patient's needs as recommended by the inter-professional team: Other: See Comment (TBD. Per pt., her Fiance is unemployed and available for 24/7 assistance. Pt.'s Mother lives three hours away, but can assist if needed.) Transport at Discharge: Transportation Arrangements: To Be Determined (If plan is for a return to home, plan for pt.'s Akhil Young to transport pt. to home at the time of hospital D/C.) Needs Prior to Discharge: Needs Prior to Discharge: To Be Determined;Patient/Family;OT/PT Evaluation;Discharge Transportation Post-Acute Discharge Plan: D/C date and needs unknown. OT recommending OUTPT OT; PT assessment pending. Akhil Young is able to transport pt. to and from OUTPT therapy sessions. Work up in progress. CSF samples pending. Continue pain control. Possible IVIG or PLEX treatments, per chart review. Unit CM/SW to follow for D/C planning needs. SIGNATURE: Daiana Perry RN PATIENT NAME: Ladi Bernstein DATE: September 21, 2023 TIME: 10:30 AM CONTACT #: [phone] [facility] 09-21-2023 Note HNO ID: [id number] Author: KLAUS STEVENSON MD Service: Neurology General Author Type: Physician Type: Progress Notes Filed: 09/21/2023 17:09 Note Text: TEAM PROGRESS NOTE (GENERAL) NEUROLOGY After 5pm and on weekends, please page [phone] ([phone]) to contact the General Neurology Resident Bottom Ironer. SERVICE DATE: 09/21/2023 SERVICE TIME: 0800 Subjective INTERVAL HISTORY: No acute events. -CSF (09/20): 366R, 12N (corrected 11.5), 50P, 67G -Nutritional/Metabolic: B12 495, homocystine 8.1, ceruloplasmin 31 -Inflammatory: CRP <0.3, ESR 15 -Infectious: Syphilis negative, HIV- -CT-C/A/P (09/19): no e/o occult malignancy, small (likely reactive) thoracic LN ACTIVE PLAN: -Follow up CSF studies -Continue new balcofen 5mg TID, lyrica 75mg BID (titrate as needed) -Pending CSF results, may do IVIG/PLEX -PT/OT, discharge pending possible IVIG/PLEX MEDICATIONS: Current medications and allergies reviewed. Recommended/planned medication changes discussed in detail in the A/P section below. Objective VITAL SIGNS 24 HOUR REVIEW: BP 106/64 Pulse 62 Temp 36.9 ?C (98.4 ?F) (Oral) Resp 18 Ht 162.6 cm (5' 4 ) Wt 92.5 kg (204 lb) LMP 05/27/2017 SpO2 99% BMI 35.02 kg/m? GENERAL: No acute distress HEENT: Normocephalic, atraumatic RESPIRATORY: No respiratory distress, no increased WOB, regular rate CARDIOVASCULAR: Regular rate and rhythm, Radial / DP pulses palpable ABDOMEN: Nondistended, no guarding EXTREMITIES / MSK: No cyanosis, No joint deformities SKIN: No visible rashes, warm and dry NEURO: Mental Status: Alert, oriented to person, place and time and Follows commands. Cranial Nerves: PERRL, visual vernon intact to confrontation, extraocular movements intact, facial sensation intact, face symmetric, no facial droop or ptosis, hearing intact to finger rub bilaterally, no dysarthria, palate elevate symmetrically, tongue protrudes midline, and shoulder shrug intact and symmetric Lhermitte+ Motor: No drift. No increased tone. Individual Muscle Group Testing: Upper Extremity Right Left Shoulder ABd (Axil C5-C6) 4/5 4/5 Elbow Flx (MusCtn C5/C6) 4/5 4/5 Elbow Ext (Radial C7) 4/5 4/5 Wrist Flx (Md/Ul C6-T1) 4/5 4/5 Wrist Ext (Radial C6-C8) 4/5 4/5 Lower Extremity Right Left Hip Flx (Lum Plx L1/L2/L3) -4/5 -4/5 Hip Ext (Sciatic L5-S1) -4/5 -4/5 Knee Flx (Sciatic L5/S1) 4/5 4/5 Knee Ext (Femoral L3/L4) 4/5 4/5 Dorsiflexion (Peroneal L5) 4/5 4/5 Plantar Flx (Tibial S1) +4/5 +4/5 Reflexes: UE and LE reflexes are equal and reactive. Brisk 2+ throughout, 3+ patellar bilaterally. Babinski down, Noble negative, Tromner negative, no ankle clonus. Right hand UMN sign (inconsistent) Sensation: LT diminished bilaterally distal to waist and bilaterally distal to elbow. Intact vibration throughout but slightly decreased LLE. Reduce proprioception bilateral great toe (L>R), UE. Coordination: Finger-to- nose-finger intact bilaterally and Wlyi-[id number]-xrnw intact bilaterally (in proportion to weakness) Gait: shuffling. GENERAL: No acute distress HEENT: Normocephalic, atraumatic RESPIRATORY: No respiratory distress, no increased WOB, regular rate CARDIOVASCULAR: Regular rate and rhythm, Radial / DP pulses palpable ABDOMEN: Nondistended, no guarding EXTREMITIES / MSK: No cyanosis, No joint deformities SKIN: No visible rashes, warm and dry NEURO: Mental Status: Alert, oriented to person, place and time and Follows commands. Cranial Nerves: PERRL, visual vernon intact to confrontation, extraocular movements intact, facial sensation intact, face symmetric, no facial droop or ptosis, hearing intact to finger rub bilaterally, no dysarthria, palate elevate symmetrically, tongue protrudes midline, and shoulder shrug intact and symmetric Lhermitte+ Motor: No drift. No increased tone. Individual Muscle Group Testing: Upper Extremity Right Left Shoulder ABd (Axil C5-C6) 4/5 4/5 Elbow Flx (MusCtn C5/C6) 4/5 4/5 Elbow Ext (Radial C7) 4/5 4/5 Wrist Flx (Md/Ul C6-T1) 4/5 4/5 Wrist Ext (Radial C6-C8) 4/5 4/5 Lower Extremity Right Left Hip Flx (Lum Plx L1/L2/L3) -4/5 -4/5 Hip Ext (Sciatic L5-S1) -4/5 -4/5 Knee Flx (Sciatic L5/S1) 4/5 4/5 Knee Ext (Femoral L3/L4) 4/5 4/5 Dorsiflexion (Peroneal L5) 4/5 4/5 Plantar Flx (Tibial S1) +4/5 +4/5 Reflexes: UE and LE reflexes are equal and reactive. Brisk 2+ throughout, 3+ patellar bilaterally. Babinski down, Noble negative, Tromner negative, no ankle clonus. Right hand UMN sign (inconsistent) Sensation: LT diminished bilaterally distal to waist and bilaterally distal to elbow. Intact vibration throughout but slightly decreased LLE. Reduce proprioception bilateral great toe (L>R), UE. Coordination: Finger-to- nose-finger intact bilaterally and Txiq-mj-gege intact bilaterally (in proportion to weakness) Gait: shuffling, more intact than would be suggested by individual muscle group testing LABS/DATA: Most re (more content not included)... [facility] 09-20-2023 Note HNO ID: [id number] Author: MARYANNE VELÁZQUEZ DO Service: Neurology General Author Type: Resident Type: Procedures Filed: 09/21/2023 04:39 Note Text: BEDSIDE PROCEDURE NOTE LUMBAR PUNCTURE Date/Start Time: 09/20/2023 12:47 PM Date/Stop Time: 09/21/2023 1:30 AM Performed by: Maryanne Velázquez DO Authorized by: Klaus Stevenson MD Where was Patient When this Procedure was Performed Bedside/Unscheduled Procedure Room Informed Consent Consent Obtained: Written [place] Protocol A moment to CARE was completed. SIGN IN Personnel directly involved with the procedure wore the appropriate PPE. Patient/Surrogate Stated/Verified: Patient name, Date of , Relevant allergies and Intended procedure TIME OUT Intended patient and procedure match the source document(s). Consent documented and matches the intended procedure. Relevant labs, photos, and/or imaging studies have been reviewed. Correct side/site marked and visible. Pre-Procedure Details: Last Lab Result (48 hrs) Component Value Date/Time INR 1.1 09/20/2023 1411 PLT 298 09/20/2023 1411 Patient is not on anticoagulant/antiplatelet medication. The area was prepped with alcohol and allowed to dry. A sterile partial body drape was applied following the usual aseptic technique. Medications: Anxiolysis (see MAR): Lorazapem Procedure Details: LP Indication: Transverse Myelitis. Patient's Position: Left lateral decubitus Location: L3-4. The subarachnoid space was located using the iliac crests and spinous processes as landmarks. A 20 gauge 6 inch needle was introduced into the arachnoid space. 17 mL(s) of blood-tinged then clearing fluid was collected. Tubes of Fluid: 4 Opening Pressure (cm H2O): 15 Dressing: Site cleaned and adhesive bandage applied Number of Attempts: 1 Post-Procedure Details: The patient was instructed to lie supine for 60 minutes post procedure. Patient Tolerance: Patient tolerated the procedure well with no immediate complications SIGN OUT All specimen containers correctly labeled. SIGNATURE: Maryanne Velázquez DO PATIENT NAME: Ladi Bernstein DATE: September 20, 2023 TIME: 11:47 PM [facility] 09-20-2023 Note HNO ID: [id number] Author: FARIDEH CRABTREE RT(R) Service: Radiology Author Type: Technologist Type: Progress Notes Filed: 09/20/2023 20:49 Note Text: Radiology Service Progress Note DATE OF SERVICE: September 20, 2023 TIME: 8:48 PM PATIENT IDENTITY VERIFICATION COMPLETED USING TWO (2) STANDARD IDENTIFIERS: Name and Date of confirmed by patient verbally and Name and Date of confirmed by identification band. FALL SCREENING: Has the patient had 2 falls in the last year or 1 fall with injury or currently using an Ambulatory Assistive Device (Walker, Cane, Wheelchair, Crutches, etc.)? Inpatient: Screened on floor PATIENT GENDER DATA: Female. status: : No status: NO. PATIENT RELEVANT IMPLANT DATA REVIEWED: Yes PATIENT PRESENTS WITH AN IMPLANTABLE OR ATTACHED SHEET ROCK TAPER HELPER: No ALLERGIES: Reviewed and unchanged CONTRAST ALLERGY: NO. EXAM: CT -CONTRAST INDUCED NEPHROPATHY RISK FACTORS: Not applicable CREATININE: Creatinine Date Value Ref Range Status 09/20/2023 0.64 0.58 - 0.96 mg/dL Final 05/27/2017 0.80 0.51 - 0.95 mg/dL Final Estimated Glomerular Filtration Rate Date Value Ref Range Status 09/20/2023 126 >=60 mL/min/1.73m? Final Comment: Estimated Glomerular Filtration Rate (eGFR) is calculated using the 2020 CKD-EPI creatinine equation. This equation utilizes serum creatinine, sex, and age as parameters. The creatinine assay has traceable calibration to isotope dilution-mass spectrometry. Refer to KDIGO guidelines for clinical interpretation. In patients with unstable renal function, e.g. those with acute kidney injury, the eGFR may not accurately reflect actual GFR. P.O.C.T. RESULTS: POC done: Yes, See Lab Tab September 20, 2023 TREATMENT: N/A PERIPHERAL IV DATA: Inpatient - refer to LDA documentation RADIOLOGY DEPARTMENT: CT; Exam(s) Completed: Chest Abdomen Pelvis SIGNATURE: RT Chaka(R) PATIENT NAME: Ladi Bernstein DATE: September 20, 2023 TIME: 8:48 PM [facility] 09-20-2023 Instructions Aldo Purvis MD - 09/20/2023 8:53 AM EDT We would recommend proceeding with blood tests and an eye test called OCT today. We will arrange for admission to the hospital. We would like to see you after the above to discuss the results. documented in this encounter [facility] 09-20-2023 History of Present illness Narrative Images from the original note were not included. [facility] NEW PATIENT EVALUATION/CONSULTATION Referral source: Dario Garcia DO [id number] [place] [address] Also followed by: No care bioinformatics team member to display PRINCIPAL NEUROLOGIC DIAGNOSIS: Myelopathy DISEASE SUMMARY Date of onset: August 2022 Date of diagnosis of MS: N/A Disease course at onset: Relapsing-Remitting Current disease course: Relapsing-Remitting Previous disease therapies: - IVMP x3 days (August 23-09/2023) Current disease therapy: None Most recent MRI brain: 09/07/2023 Most recent MRI cervical spine: 08/22/2023 Most recent MRI thoracic spine: 09/07/2023 CSF: 12/09/2022 (RBC 0, WBC 10 [lymphocytic], Glucose 64, Protein 15.3, IgG index 2.5, OCBs not done) JCV serology result and date: None Serum: - 2023: AQP4 Ab negative HISTORY OF ILLNESS: An opinion on this 23 year old right handed female was requested by the referring physician for a second opinion on abnormal MRI. The patient was accompanied by her fiance. Previous records (physician notes, laboratory reports, and radiology reports) and imaging studies were reviewed and summarized. My recommendations will be communicated back to the patient's physician(s) via facsimile. Follow-up is expected to be with me or the referring physician based on results of planned workup. Around August 2022 she started experiencing numbness in the feet (initially attributed to pinched nerve) which ascended and by the end of the week was numb below the waist. She was evaluated by her PCP by then symptoms affecting the torso and arms. She was also experiencing a feeling of squeezing in her abdomen and was seen in the ER who recommended neurology evaluation. She does not recall a trigger or feeling unwell prior to onset of symptoms. She was seen by Dr. Garcia who initially did MRI brain which was unremarkable. She then had MRI cervical spine in September 2022 which showed a cervical spine lesion and no thoracic cord lesions. She was given a Medrol dose pack and started on gabapentin and she became shortly after and stopped gabapentin. During that time she had symptoms of tremor in the hands, bouncing quality walk, stuttering speech, weakness in the four extremities, and urinary hesitation symptoms. At the time she was ambulating independently. During her symptoms mostly improved. She delivered in March 2023 () and was 100% back to normal self neurologically. Around mid July 2023 she started experiencing shooting pain in neck and BLE. About a month ago she also experienced pain symptoms in BUE. The symptoms have progressed to include weakness in BUE and BLE. She is also experiencing the hug like sensation and muscle spasms. She had IV steroids for 3 days about 3 weeks ago after the MRI results showing possibly expanded cord lesion which did not help significantly. During this period her pain and weakness has gotten worse. Over the past 1.5 weeks she feels similar ascending numbness symptoms to her index event. She still ambulates independently although her fiance helps her walk with holding her at most times. She is ex-smoker quit November 2022. She denies any significant alcohol or drug use. No current plans for although does not use contraception. Current Symptoms: Heat sensitivity Pain, taking gabapentin 300 mg TID which somewhat helps with the pain Muscle spasms, taking Robaxin 500 mg BID which helps somewhat Weakness Numbness Urinary hesitation mostly due to lack of sensation, denies incontinence Neuro-QoL Functions (higher=better functioning) Flowsheet Row Office Visit from 09/20/2023 in [facility] Upper Extremity Domain T Score 35 Lower Extremity Domain T Score 33 Cognitive Function Domain T Score 38 Positive Affect Well Being T Score -- Ability To Participate In Social Roles T Score 29 Satisfaction With Social Roles T Score 32 Neuro-QoL Symptoms (higher=worse symptoms) Flowsheet Row Office Visit from 09/20/2023 in [facility] Sleep Domain T Score 59 Fatigue Domain T Score 64 Anxiety Domain T Score 57 Depression Domain T Score 49 Stigma Domain T Score 60 Emotional Behavior Dyscontrol T Score -- PAST HISTORY: has a past medical history of ADHD (attention deficit hyperactivity disorder), Depression, and Endometriosis. has a past surgical history that includes section hx and removal gallbladder. has a current medication list which includes the following prescription(s): vyvanse, methocarbamol, iv contrast, enteric contrast, and [DISCONTINUED] gabapentin. Social History Tobacco Use Smoking status: Former Packs/day: 0.50 Years: 2.00 Additional pack years: 0.00 Total pack years: 1.00 Types: Cigarettes Quit date: 12/04/2021 Years since quittin.7 Smokeless tobacco: Never family history includes Diabetes in her father; Glaucoma in her father. PHYSICAL EXAM: BP 135/80 Pulse 94 Ht 162.6 cm (5' 4 ) Wt 92.5 kg (204 lb) LMP 05/27/2017 BMI 35.02 kg/m Hair, skin, nails, and joints were normal. Neck was supple with Lhermitte's phenomenon. Breathing comfortably on room air. There was no peripheral edema. The patient was alert and with normal language, attention and concentration, recent and remote memory, praxis, and intellectual function. Affect was normal. The patient did not appear depressed. Visual acuity to near card was as follows: OD= 20/20 -1 (with contacts) OS= 20/20 (with contacts). Visual vernon were full to confrontation. Pupils were 3 mm and briskly reactive OU without a relative afferent pupillary defect. Funduscopic examination was normal without disc edema, erythema, or atrophy. Ocular ductions were full without nystagmus or ataxia. Facial sensation was normal. Muscles of mastication and facial expression moved normally. Hearing was intact to finger rub bilaterally. Palatal movements were normal. Sternocleidomastoid and trapezius power were normal. Tongue movements were normal. There was no dysarthria. Motor Examination: Ratcheting quality to strength testing. Right Upper Extremity: Left Upper Extremity: Deltoid 4+/5 Deltoid 4+/5 Biceps 4+/5 Biceps 4+/5 Triceps 4+/5 Triceps 4+/5 Wrist extensors 4+/5 Wrist extensors 4+/5 Wrist flexors 4+/5 Wrist flexors 4+/5 Dorsal interossei 4+/5 Dorsal interossei 4+/5 Finger extension 4+/5 Finger extension 4+/5 Tone (Marcy scale) 0 Tone (Marcy scale) 0 Right Lower Extremity: Left Lower Extremity: Hip flexors 4/5 Hip flexors 4/5 Hip extensors 4/5 Hip extensors 4/5 Knee flexors 4/5 Knee flexors 4/5 Knee extensors 4/5 Knee extensors 4/5 Dorsiflexors 4/5 Dorsiflexors 4/5 Plantarflexors 4/5 Plantarflexors 4/5 Toe extensors 4+/5 Toe extensors 4+/5 Toe flexors 4+/5 Toe flexors 4+/5 Tone (Marcy scale) 0 Tone (Marcy scale) 0 Reflexes: brachioradialis ++ (brisk) brachioradialis ++ (brisk) biceps ++ (brisk) biceps ++ (brisk) triceps ++ (brisk) triceps ++ (brisk) patellar +++ patellar +++ Achilles ++ Achilles ++ Noble's sign absent Noble's sign absent clonus absent clonus absent plantar response down plantar response down Coordination testing in the arms and legs was performed including wavim-lg-yngad, rapid-alternating, and fine movements. Rapid movements were smooth with good malena and there was no dysmetria although appears to have sensory ataxia. No signs of cerebellar dysfunction. Sensory examination: Light touch: Reports impaired touch in BUE to elbow and BLE to waist. Vibration: Normal bilateral lower extremities. Proprioception: Reduced bilateral lower extremities at distal joint (2-3 errors). Intact in bilateral upper extremities. Gait was shuffling. Unable to stand on toes or heels. REVIEW OF RECORDS: As summarized above. REVIEW OF IMAGING STUDIES: MRI brain w/wo 09/07/2023: No clear intracranial WM lesions. MRI cervical spine w/wo 08/22/2023 and thoracic spine w/wo 09/07/2023: Expansile T2 lesion at C3/4 central and involving almost the entire cord. No thoracic cord lesions. No GdE. Per OSH report, in comparison to 10/15/2022 lesions similar in appearance but slightly larger and further expansion. Previous MRI from 2022 done at [facility]. ASSESSMENT: 23 year old right handed female with relevant PMHx ADHD and depression presenting for second opinion regarding myelopathy. She had onset of neurological symptoms around August 2022 progressively and subacutely consistent with myelopathy and found to have a C2/3 non-enhancing lesion (although index imaging not available for personal review) and treated with Medrol dose-pack without improvement. She had improvement in symptoms with but has had recurrence of subacute progressive symptoms post- starting around July 2023 with MRI demonstrating expansion in the size of the previously noted lesion again without GdE. The remainder of neuroimaging has been unremarkable. Limited previous CSF workup has demonstrated lymphocytic pleocytosis and elevated IgG index. She has been treated again with 3 days of IVMP in August 2023 without improvement and she currently thinks has been having ongoing progressive symptoms. Her neurological examination today has evidence of T[employer]NER [employer]IC injury (in addition to possibly non-organic overlay symptoms). Overall, the etiology of myelopathy at this time remains unclear with broad differentials but possibility of neoplastic etiology is raised given the increase in size, the expansile appearance of the lesion, and lack of response to IVMP. However, other causes including inflammatory, infectious, and nutritional need to be evaluated further. Given the diagnostic ambiguity, progression of symptoms/disability, and patient's preference, we will proceed with direct admission to the neurology service for expedited workup and evaluation. PLAN: - OCT testing today. - Serum testing as outlined below. - Direct admit to general neurology service - discussed with Dr. Osullivan. - CSF testing (routine, infectious, inflammatory including MAC1, cytology). - CT C/A/P w/wo. - Physical therapy and occupational therapy evaluation. - Obtain prior MRI from [facility]. - Adjust neuropathic and muscle relaxant medications during hospitalization. - Urology referral and neuro-oncology evaluation. - Follow up with us after the above. Office Visit on 09/20/23 CT ABD/PEL W IVCON CT CHEST W IVCON IR LUMBAR PUNCTURE DIAGNOSTIC (MC) T[employer]NER [employer]OM[employer]IC DEMYELINATING DISEASE EVALUATION, SERUM MISC SEND OUT TST 1 MISC SEND OUT TST 1 HIV 1/2 COMBO WITH REFLEX TO DIFFERENTIATION SYPHILIS TOTAL W/REFLEX HTLV AB SCREEN CANDY PANEL BLOOD SCRN ANTI KERRI ID ANTI NEUTRO CYTO AB C-REACTIVE PROTEIN DNA AB DS + CONF BLD SEDIMENTATION RATE, WESTERGREN HOMOCYSTEINE VITAMIN B12 METHYLMALONIC ACID COPPER BLOOD LYME AB LATE >30 DAYS SYMPTOMS MISC SEND OUT TST 1 MISC SEND OUT TST 1 COMPREHENSIVE METABOLIC PANEL CONSULT TO UROLOGY CONSULT TO NEUROLOGY OCT NEURO INST Seen with Dr. Holloway. Aldo Purvis MD Neuroimmunology Fellow [facility] for Multiple Sclerosis [facility] STAFF PHYSICIAN NOTE OF PERSONAL INVOLVEMENT IN CARE I have reviewed the progress note obtained and documented by the fellow and I personally participated in the turcios components. I have discussed the case and management of the patient's care. The following comments revise or confirm relevant turcios components of their note. IMPRESSION: This is a 23 year old female with ascending sensory and motor symptoms of the lower extremities over the last year. Symptoms improved during and after , but returned in July of 2023. Initial work up showed a central cord lesion at C3/C4 without enhancement. She has since had worsening weakness and sensory change, bladder changes, and now symptoms in her hands bilaterally. MRI brain and cervical spine repeated in August showed no acute changes or lesions in the brain, but expansion of the previously identified cervical lesion. She had CSF conducted previously which showed elevated IgG Index and mild pleocytosis. Given ongoing worsening and suspicion of possible T[employer]NER [employer]MER [employer]OMATIC malignancy we will admit to hospital. Will need a repeat CSF examination, CT CAP and if negative PET scan. OCT today at [place], and screening blood tests as above. IF above work-up negative would consider consult to neuro-oncology. Appreciate assistance from neurology general team. SIGNATURE: Kevin Holloway MD PhD DATE of SERVICE: September 20, 2023 documented in this encounter [facility] 09-20-2023 Note HNO ID: [id number] Author: KEVIN HOLLOWAY MD Service: ? Author Type: Physician Type: Progress Notes Filed: 09/20/2023 18:23 Note Text: [facility] NEW PATIENT EVALUATION/CONSULTATION Referral source: Dario Garcia DO [address] [place] [address] Also followed by: No care bioinformatics team member to display PRINCIPAL NEUROLOGIC DIAGNOSIS: Myelopathy DISEASE SUMMARY Date of onset: August 2022 Date of diagnosis of MS: N/A Disease course at onset: Relapsing-Remitting Current disease course: Relapsing-Remitting Previous disease therapies: - IVMP x3 days (August 23-09/2023) Current disease therapy: None Most recent MRI brain: 09/07/2023 Most recent MRI cervical spine: 08/22/2023 Most recent MRI thoracic spine: 09/07/2023 CSF: 12/09/2022 (RBC 0, WBC 10 [lymphocytic], Glucose 64, Protein 15.3, IgG index 2.5, OCBs not done) JCV serology result and date: None Serum: 2023: AQP4 Ab negative HISTORY OF ILLNESS: An opinion on this 23 year old right handed female was requested by the referring physician for a second opinion on abnormal MRI. The patient was accompanied by her fiance. Previous records (physician notes, laboratory reports, and radiology reports) and imaging studies were reviewed and summarized. My recommendations will be communicated back to the patient's physician(s) via facsimile. Follow-up is expected to be with me or the referring physician based on results of planned workup. Around August 2022 she started experiencing numbness in the feet (initially attributed to pinched nerve) which ascended and by the end of the week was numb below the waist. She was evaluated by her PCP by then symptoms affecting the torso and arms. She was also experiencing a feeling of squeezing in her abdomen and was seen in the ER who recommended neurology evaluation. She does not recall a trigger or feeling unwell prior to onset of symptoms. She was seen by Dr. Garcia who initially did MRI brain which was unremarkable. She then had MRI cervical spine in September 2022 which showed a cervical spine lesion and no thoracic cord lesions. She was given a Medrol dose pack and started on gabapentin and she became shortly after and stopped gabapentin. During that time she had symptoms of tremor in the hands, bouncing quality walk, stuttering speech, weakness in the four extremities, and urinary hesitation symptoms. At the time she was ambulating independently. During her symptoms mostly improved.She delivered in March 2023 () and was 100% back to normal self neurologically. Around mid July 2023 she started experiencing shooting pain in neck and BLE. About a month ago she also experienced pain symptoms in BUE. The symptoms have progressed to include weakness in BUE and BLE. She is also experiencing the hug like sensation and muscle spasms. She had IV steroids for 3 days about 3 weeks ago after the MRI results showing possibly expanded cord lesion which did not help significantly. During this period her pain and weakness has gotten worse. Over the past 1.5 weeks she feels similar ascending numbness symptoms to her index event. She still ambulates independently although her fiance helps her walk with holding her at most times. She is ex-smoker quit November 2022. She denies any significant alcohol or drug use. No current plans for although does not use contraception. Current Symptoms: Heat sensitivity Pain, taking gabapentin 300 mg TID which somewhat helps with the pain Muscle spasms, taking Robaxin 500 mg BID which helps somewhat Weakness Numbness Urinary hesitation mostly due to lack of sensation, denies incontinence Neuro-QoL Functions (higher=better functioning) Flowsheet Row Office Visit from 09/20/2023 in [facility] Upper Extremity Domain T Score 35 Lower Extremity Domain T Score 33 Cognitive Function Domain T Score 38 Positive Affect Well Being T Score -- Ability To Participate In Social Roles T Score 29 Satisfaction With Social Roles T Score 32 Neuro-QoL Symptoms (higher=worse symptoms) Flowsheet Row Office Visit from 09/20/2023 in [facility] Sleep Domain T Score 59 Fatigue Domain T Score 64 Anxiety Domain T Score 57 Depression Domain T Score 49 Stigma Domain T Score 60 Emotional Behavior Dyscontrol T Score -- PAST HISTORY: has a past medical history of ADHD (attention deficit hyperactivity disorder), Depression, and Endometriosis. has a past surgical history that includes section hx and removal gallbladder. has a current medication list which includes the following prescription(s): vyvanse, methocarbamol, iv contrast, enteric contrast, and [DISCONTINUED] gabapentin. Social History Tobacco Use Smoking status: Former Packs/day: 0.50 Years: 2.00 Additional pack years: 0.00 Total pack years: 1.00 Types: Cigarettes Quit date: 12/04/2021 Years since quit (more content not included)... [facility] 09-16-2023 Telephone encounter Note Was able to connect and push over neuroimaging from this year. Was advised prior neuroimaging from 2022 was done at [facility]. Unable to connect electronically to confirm. Aldo Purvis MD Neuroimmunology Fellow [facility] Work Phone: 09-16-2023 Miscellaneous Notes Was able to connect and push over neuroimaging from this year. Was advised prior neuroimaging from 2022 was done at [facility]. Unable to connect electronically to confirm. Aldo Purvis MD Neuroimmunology Fellow Attempted to call [facility] film library several times to obtain OSH images for upcoming appointment but unable to reach. Future Appointments Date Time Provider Department [place] 09/20/2023 7:30 AM Kevin Holloway MD [facility] Sofia Purvis MD Neuroimmunology Fellow documented in this encounter [facility] 09-16-2023 Telephone encounter Note Attempted to call [facility] film library several times to obtain OSH images for upcoming appointment but unable to reach. Future Appointments Date Time Provider Department [facility] 09/20/2023 7:30 AM Kevin Holloway MD [facility] [place] Aldo Purvis MD Neuroimmunology Fellow [facility] 10-05-2022 Note PROCEDURE: CT CSPINE WO CON, CT LSPINE WO CON COMPARISON: None. HISTORY: MUSCLE WEAKNESS (GENERALIZED) TECHNIQUE: Axial, Coronal, and Sagittal CT images obtained without IV contrast. Dose reduction techniques were achieved by using automated exposure control and/or adjustment of mA and/or kV according to patient size and/or use of iterative reconstruction technique. FINDINGS: CERVICAL SPINE: PARASPINAL AREA: Scattered anterior and posterior cervical lymph nodes DISCS: Normal intervertebral spacing BONES: Reversal of normal cervical lordosis. No acute fracture or spondylolisthesis. No significant degenerative changes OTHER: Negative. LUMBAR SPINE: PARASPINAL AREA: Normal with no visible mass. DISCS: Mild disc bulge L5-S1 BONES: Normal alignment with no acute fracture or spondylolisthesis. No significant degenerative changes OTHER: Negative. IMPRESSION: No acute abnormality of the cervical or lumbar spine Electronically authenticated by: SAMMI DONNELLY Date: 2022-10-05 15:55 [facility] 10-05-2022 Note PROCEDURE: CT CSPINE WO CON, CT LSPINE WO CON COMPARISON: None. HISTORY: MUSCLE WEAKNESS (GENERALIZED) TECHNIQUE: Axial, Coronal, and Sagittal CT images obtained without IV contrast. Dose reduction techniques were achieved by using automated exposure control and/or adjustment of mA and/or kV according to patient size and/or use of iterative reconstruction technique. FINDINGS: CERVICAL SPINE: PARASPINAL AREA: Scattered anterior and posterior cervical lymph nodes DISCS: Normal intervertebral spacing BONES: Reversal of normal cervical lordosis. No acute fracture or spondylolisthesis. No significant degenerative changes OTHER: Negative. LUMBAR SPINE: PARASPINAL AREA: Normal with no visible mass. DISCS: Mild disc bulge L5-S1 BONES: Normal alignment with no acute fracture or spondylolisthesis. No significant degenerative changes OTHER: Negative. IMPRESSION: No acute abnormality of the cervical or lumbar spine Electronically authenticated by: SAMMI DONNELLY Date: 2022-10-05 15:55 [facility] Evaluation note No assessment inform ation available [facility] Work Phone: Evaluation note Diagnosis Myelopathy (HCC)- Primary Unspecified disease of spinal cord Urinary hesitancy Spinal cord lesion (HCC) Unspecified disease of spinal cord [facility] Demyelinating disease of central nervous system (HCC)- Primary Demyelinating disease of central nervous system, unspecified Spinal cord lesion (HCC) Unspecified disease of spinal cord [facility] Mass of spine [M89.8X8]- Primary [facility] Diagnosis Anxiety- Primary Anxiety state, unspecified Multiple sclerosis (HCC) Multiple sclerosis [facility] Diagnosis Myelopathy (HCC)- Primary Unspecified disease of spinal cord Spinal cord lesion (HCC) Unspecified disease of spinal cord Noble's reflex Abnormal reflex [facility] Diagnosis Demyelinating disease of central nervous system (HCC) Demyelinating disease of central nervous system, unspecified [facility] Diagnosis Multiple sclerosis (HCC)- Primary Multiple sclerosis Other chronic pain Progressive multiple sclerosis (HCC) Myelitis (HCC) Unspecified cause of encephalitis, myelitis, and encephalomyelitis [facility] Diagnosis Multiple sclerosis (HCC)- Primary Multiple sclerosis [facility] Diagnosis Anxiety- Primary Anxiety state, unspecified [facility] Diagnosis Demyelinating disease of central nervous system (HCC)- Primary Demyelinating disease of central nervous system, unspecified documented in this encounter [facility] note* Diagnosis Progressive multiple sclerosis (HCC)- Primary documented in this encounter [facility] note* Diagnosis Progressive multiple sclerosis (HCC)- Primary [facility]* Diagnosis Multiple sclerosis (HCC)- Primary Multiple sclerosis Urinary retention Retention of urine, unspecified Paraplegia (HCC) Paraplegia Neuropathic pain Neuralgia, neuritis, and radiculitis, unspecified Recurrent UTI Urinary tract infection, site not specified documented in this encounter [facility] note* Diagnosis Attention deficit hyperactivity disorder (ADHD), unspecified ADHD type- Primary Depression, unspecified depression type [facility]* Diagnosis Urinary hesitancy- Primary Frequent UTI Urinary tract infection, site not specified documented in this encounter [facility] note* Diagnosis Screening for genitourinary condition Screening for other and unspecified genitourinary condition documented in this encounter [facility] for referral (narrative)* Outpatient Procedure (Routine) - New Request Specialty Diagnoses / Procedures Referred By Contac t Referred To Contact [facility] Diagnoses Urinary hesitancy Procedures FLUROURODYNAMICS WITH EMG EMG STDS ANAL/URTL SPHNCTR OT/THN NDL Neeru Sifuentes APRN.CNP [address] [place] [address] [place] [address] Referral ID Status Reason Start Date Expiration Date Visits Requested Visits Authorized [id number] New Request Auto-Generat ed Referral 01/25/2024 01/24/2025 1 1 [facility] Summary Purpose Family History Relationship Condition Age at Onset Recorded Date/T vladislav father Type 2 diabetes mellitus Unknown Advance Directives Advance Directive Response Recorded Date/ Time Advance Directives No January 10:58pm Date Activated Date Inactivated Comments 09/25/2023 3:17 AM 09/27/2023 6:23 PM Question Answer Comments Full Code Order Discussed With: Patient Date Activated Date Inactivated Comments 09/25/2023 3:17 AM 09/27/2023 6:23 PM Question Answer Comments Full Code Order Discussed With: Patient Chief Complaint and Reason for Visit Chief Complaint numbness all over amisha dy headache r20.0 E55.9 Chief Complaint numbness all over amisha dy headache r20.0 E55.9 Back/Spine labs Chief Complaint not listed Chief Complaint not listed G37.3 R53.1 Reason for Referral Specialty Diagnoses / Procedures Referred By Contac t Referred To Contact Neurology / MULTIPLE SCLEROSIS Diagnoses Myelopathy (HCC) Spinal cord lesion (HCC) Procedures CONSULT TO NEUROLOGY OFFICE/OUTPATIENT [facility] 60 MINUTES Kevin Holloway MD [address] [facility] [place] [address] [place] [address] [place], [place] [id number] Referral ID Status Reason Start Date Expiration Date V isits Requested Visits Authorized [id number] Closed PCP Requested Referral 09/20/2023 05/22/2024 2 2 Specialty Diagnoses / Procedures Referred By Contac t Referred To Contact Urology Diagnoses Urinary hesitancy Procedures CONSULT TO UROLOGY OFFICE/OUTPATIENT [facility] 60 MINUTES Kevin Holloway MD [address] [phone] Referral ID Status Reason Start Date Expiration Date Visits Requested Visits Authorized [id number] Authorized PCP Requested Referral 09/20/2023 09/19/2024 1 1 Specialty Diagnoses / Procedures Referred By Contac t Referred To Contact CT IMAGING Diagnoses Myelopathy (HCC) Procedures CT CHEST W IVCON DIAGNOSTIC COMPUTED TOMOGRAPHY THORAX W/CONTRAST Kevin Holloway MD [address] [place] [address] Ct Imaging [facility]95 Referral ID Status Reason Start Date Expiration Date Visits Requested Visits Authorized [id number] Pending Review Auto-Generat ed Referral 09/20/2023 10/19/2024 1 1 Specialty Diagnoses / Procedures Referred By Contac t Referred To Contact CT IMAGING Diagnoses Myelopathy (HCC) Procedures CT ABD/PEL W IVCON CT ABD & PELVIS W/CONTRAST Kevin Holloway MD [address] [place] [address] Ct Imaging [place] [address] Referral ID Status Reason Start Date Expiration Date Visits Requested Visits Authorized [id number] Pending Review Auto-Generat ed Referral 09/20/2023 10/19/2024 1 1 Specialty Diagnoses / Procedures Referred By Contac t Referred To Contact Neurology Diagnoses Spinal cord lesion (HCC) Procedures CONSULT TO NEUROLOGY OFFICE/OUTPATIENT [facility] 60 MINUTES Kevin Holloway MD [address] [place] [address] Referral ID Status Reason Start Date Expiration Date Visits Requested Visits Authorized [id number] Authorized PCP Requested Referral 10/04/2023 10/03/2024 1 1 Specialty Diagnoses / Procedures Referred By Contac t Referred To Contact MR IMAGING Diagnoses Demyelinating disease of central nervous system (HCC) Procedures MRI THORACIC SPINE WO/W IVCON MRI SPINAL CANAL THORACIC W/O & W/CONTR MATRL Kevin Holloway MD [address] [place] [address] Mr Imaging [place] [address] Referral ID Status Reason Start Date Expiration Date Visits Requested Visits Authorized [id number] Pending Review Auto-Generat ed Referral 10/04/2023 11/02/2024 1 1 Specialty Diagnoses / Procedures Referred By Contac t Referred To Contact MR IMAGING Diagnoses Demyelinating disease of central nervous system (HCC) Procedures MRI CERVICAL SPINE WO/W IVCON MRI SPINAL CANAL CERVICAL W/O & W/CONTR MATRL Kevin Holloway MD [address] [phone] Mr Imaging [facility] Referral ID Status Reason Start Date Expiration Date Visits Requested Visits Authorized [id number] Pending Review Auto-Generat ed Referral 10/04/2023 11/02/2024 1 1 Specialty Diagnoses / Procedures Referred By Contac t Referred To Contact MR IMAGING Diagnoses Demyelinating disease of central nervous system (HCC) Procedures MRI BRAIN WO/W IVCON MRI BRAIN BRAIN STEM W/O W/CONTRAST MATERIAL Kevin Holloway MD [address] [place] [address] Imaging [place] [address] Referral ID Status Reason Start Date Expiration Date Visits Requested Visits Authorized [id number] Pending Review Auto-Generat ed Referral 10/04/2023 11/02/2024 1 1 Referral ID Status Reason Start Date Expiration Date V isits Requested Visits Authorized [id number] Closed Auto-Generate d Referral 10/11/2023 11/10/2023 1 1 Referral ID Status Reason Start Date Expiration Date V isits Requested Visits Authorized [id number] Closed Auto-Generate d Referral 10/11/2023 11/10/2023 1 1 Referral ID Status Reason Start Date Expiration Date V isits Requested Visits Authorized [id number] Closed Auto-Generate d Referral 10/11/2023 11/10/2023 1 1 Specialty Diagnoses / Procedures Referred By Contac t Referred To Contact Spine [place] Diagnoses Other chronic pain Procedures CONSULT TO [facility]) OFFICE/OUTPATIENT [facility] 60 MINUTES To Vyas MD [address] [place] [address] Referral ID Status Reason Start Date Expiration Date Visits Requested Visits Authorized [id number] Pending Review PCP Requested Referral 10/28/2023 10/27/2024 1 1 Specialty Diagnoses / Procedures Referred By Contac t Referred To Contact Psychology Diagnoses Multiple sclerosis (HCC) Procedures CONSULT TO PSYCHOLOGY OFFICE/OUTPATIENT [facility] 60 MINUTES Vannessa Kruse, LAURO.AUTOMATIC GRINDER OPERATOR [address] [place] [address] Referral ID Status Reason Start Date Expiration Date Visits Requested Visits Authorized [id number] Pending Review PCP Requested Referral 11/04/2023 11/03/2024 1 1 Specialty Diagnoses / Procedures Referred By Contac t Referred To Contact MR IMAGING Diagnoses Demyelinating disease of central nervous system (HCC) Procedures MRI BRAIN WO/W IVCON MRI BRAIN BRAIN STEM W/O W/CONTRAST MATERIAL To Vyas MD [address] [phone] Mr Imaging [facility] Referral ID Status Reason Start Date Expiration Date Visits Requested Visits Authorized [id number] New Request Auto-Generat ed Referral 06/02/2024 12/30/2024 1 1 Specialty Diagnoses / Procedures Referred By Contac t Referred To Contact MR IMAGING Diagnoses Demyelinating disease of central nervous system (HCC) Procedures MRI THORACIC SPINE WO/W IVCON MRI SPINAL CANAL THORACIC W/O & W/CONTR To Ruiz MD [address] [place] [phone] Mr Imaging [facility] Referral ID Status Reason Start Date Expiration Date Visits Requested Visits Authorized [id number] New Request Auto-Generat ed Referral 06/02/2024 12/30/2024 1 1 Specialty Diagnoses / Procedures Referred By Contac t Referred To Contact MR IMAGING Diagnoses Demyelinating disease of central nervous system (HCC) Procedures MRI CERVICAL SPINE WO/W IVCON MRI SPINAL CANAL CERVICAL W/O & W/CONTR To Ruiz MD [address] [place] [address] Mr Imaging [place] [address] Referral ID Status Reason Start Date Expiration Date Visits Requested Visits Authorized [id number] New Request Auto-Generat ed Referral 06/02/2024 12/30/2024 1 1 Specialty Diagnoses / Procedures Referred By Contac t Referred To Contact Urology Diagnoses Urinary retention Recurrent UTI Procedures CONSULT TO UROLOGY OFFICE/OUTPATIENT [facility] 60 MINUTES Kevin Holloway MD [address] [phone] Referral ID Status Reason Start Date Expiration Date Visits Requested Visits Authorized [id number] Authorized PCP Requested Referral 01/04/2024 01/03/2025 1 1 Specialty Diagnoses / Procedures Referred By Contac t Referred To Contact Diagnoses Attention deficit hyperactivity disorder (ADHD), unspecified ADHD type Depression, unspecified depression type Procedures CONSULT TO PSYCHIATRY OFFICE/OUTPATIENT [facility] 60 MINUTES Kevin Holloway MD [address] [phone] Referral ID Status Reason Start Date Expiration Date Visits Requested Visits Authorized [id number] Pending Review PCP Requested Referral 01/24/2024 01/23/2025 1 1 Additional Source Comments INFORMATION SOURCE (unrecogn ized section and content) DATE CREATED AUTHOR 11/10/2017 [facility] DATE CREATED AUTHOR AUTHOR'S ORGANIZ ATION 11/11/2017 [facility] DATE CREATED AUTHOR AUTHOR'S ORGANIZ ATION 07/27/2019 [facility] DATE CREATED AUTHOR AUTHOR'S ORGANIZ ATION 11/01/2022 [facility] DATE CREATED AUTHOR AUTHOR'S ORGANIZ ATION 08/23/2023 [facility] DATE CREATED AUTHOR AUTHOR'S ORGANIZ ATION 09/08/2023 [facility] DATE CREATED AUTHOR AUTHOR'S ORGANIZ ATION 09/22/2023 [facility] DATE CREATED AUTHOR AUTHOR'S ORGANIZ ATION 09/29/2023 [facility] DATE CREATED AUTHOR AUTHOR'S ORGANIZ ATION 10/13/2023 [facility] DATE CREATED AUTHOR AUTHOR'S ORGANIZ ATION 10/26/2023 [facility] DATE CREATED AUTHOR AUTHOR'S ORGANIZ ATION 12/24/2023 [facility] DATE CREATED AUTHOR AUTHOR'S ORGANIZ ATION 01/30/2024 [facility] DATE CREATED AUTHOR AUTHOR'S ORGANIZ ATION 02/08/2024 [facility] EPIC Care Teams (unrecognized sec tion and content) Team Status: Active Member Role Status Dates Julia Chen NP-C Primary Care Provider Active Team Status: Inactive Member Role Status Dates Rosa M Andersen NP-C Primary Care Provider Active Tasneem Garcia APRN Emergency Provider Active Team Status: Inactive Member Role Status Dates Julia Chen NP-C Primary Care Provider Active Dario Garcia DO Attending Provider Active Team Status: Active Member Role Status Dates Julia Chen NP-C Primary Care Provider Active Dario Garcia DO Attending Provider Active Team Status: Inactive Member Role Status Dates Julia Isela Shayla , KNIT GOODS MENDER-C Primary Care Provider Active Start: August 25, 2023 End: August 25, 2023 Chelo Berman APRN Attending Provid er, Referring Provider Active Start: August 25, 2023 End: August 25, 2023 Team Status: Inactive Member Role Status Dates Julia Chen KNIT GOODS MENDER-C Primary Care Provider Active Start: September 15, 2023 End: September 15, 2023 Dario Garcia DO Attending Provider Active Sta rt: September 15, 2023 End: September 15, 2023 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 Start Date End Date Unknown, Provider, 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 PCP - General 09/27/23 Goals (unrecognized section and content) Goals may be documented in a n alternate sectionGoals may be documented in an alternate sectionGoals may be documented in an alternate sectionGoals may be documented in an alternate section Source Comments (unrecognize d section and content) In the event this informatio n is protected by the Federal Confidentiality of Alcohol and Drug Abuse Patient Records regulations: The Federal rules restrict any use of the information to criminally investigate or prosecute any alcohol or drug abuse patient.[facility] the event this information is protected by the Federal Confidentiality of Alcohol and Drug Abuse Patient Records regulations: The Federal rules restrict any use of the information to criminally investigate or prosecute any alcohol or drug abuse patient.[facility] the event this information is protected by the Federal Confidentiality of Alcohol and Drug Abuse Patient Records regulations: The Federal rules restrict any use of the information to criminally investigate or prosecute any alcohol or drug abuse patient.[facility] the event this information is protected by the Federal Confidentiality of Alcohol and Drug Abuse Patient Records regulations: The Federal rules restrict any use of the information to criminally investigate or prosecute any alcohol or drug abuse patient.[facility] WestIn the event this information is protected by the Federal Confidentiality of Alcohol and Drug Abuse Patient Records regulations: The Federal rules restrict any use of the information to criminally investigate or prosecute any alcohol or drug abuse patient.[facility] WestIn the event this information is protected by the Federal Confidentiality of Alcohol and Drug Abuse Patient Records regulations: The Federal rules restrict any use of the information to criminally investigate or prosecute any alcohol or drug abuse patient.[facility] WestIn the event this information is protected by the Federal Confidentiality of Alcohol and Drug Abuse Patient Records regulations: The Federal rules restrict any use of the information to criminally investigate or prosecute any alcohol or drug abuse patient.[facility] WestIn the event this information is protected by the Federal Confidentiality of Alcohol and Drug Abuse Patient Records regulations: The Federal rules restrict any use of the information to criminally investigate or prosecute any alcohol or drug abuse patient.[facility] WestIn the event this information is protected by the Federal Confidentiality of Alcohol and Drug Abuse Patient Records regulations: The Federal rules restrict any use of the information to criminally investigate or prosecute any alcohol or drug abuse patient.[facility] WestIn the event this information is protected by the Federal Confidentiality of Alcohol and Drug Abuse Patient Records regulations: The Federal rules restrict any use of the information to criminally investigate or prosecute any alcohol or drug abuse patient.[facility] WestIn the event this information is protected by the Federal Confidentiality of Alcohol and Drug Abuse Patient Records regulations: The Federal rules restrict any use of the information to criminally investigate or prosecute any alcohol or drug abuse patient.[facility] WestIn the event this information is protected by the Federal Confidentiality of Alcohol and Drug Abuse Patient Records regulations: The Federal rules restrict any use of the information to criminally investigate or prosecute any alcohol or drug abuse patient.[facility] WestIn the event this information is protected by the Federal Confidentiality of Alcohol and Drug Abuse Patient Records regulations: The Federal rules restrict any use of the information to criminally investigate or prosecute any alcohol or drug abuse patient.[facility] WestIn the event this information is protected by the Federal Confidentiality of Alcohol and Drug Abuse Patient Records regulations: The Federal rules restrict any use of the information to criminally investigate or prosecute any alcohol or drug abuse patient.[facility] WestIn the event this information is protected by the Federal Confidentiality of Alcohol and Drug Abuse Patient Records regulations: The Federal rules restrict any use of the information to criminally investigate or prosecute any alcohol or drug abuse patient.[facility] WestIn the event this information is protected by the Federal Confidentiality of Alcohol and Drug Abuse Patient Records regulations: The Federal rules restrict any use of the information to criminally investigate or prosecute any alcohol or drug abuse patient.[facility] WestIn the event this information is protected by the Federal Confidentiality of Alcohol and Drug Abuse Patient Records regulations: The Federal rules restrict any use of the information to criminally investigate or prosecute any alcohol or drug abuse patient.[facility] WestIn the event this information is protected by the Federal Confidentiality of Alcohol and Drug Abuse Patient Records regulations: The Federal rules restrict any use of the information to criminally investigate or prosecute any alcohol or drug abuse patient.[facility] WestIn the event this information is protected by the Federal Confidentiality of Alcohol and Drug Abuse Patient Records regulations: The Federal rules restrict any use of the information to criminally investigate or prosecute any alcohol or drug abuse patient.[facility] WestIn the event this information is protected by the Federal Confidentiality of Alcohol and Drug Abuse Patient Records regulations: The Federal rules restrict any use of the information to criminally investigate or prosecute any alcohol or drug abuse patient.[facility] WestIn the event this information is protected by the Federal Confidentiality of Alcohol and Drug Abuse Patient Records regulations: The Federal rules restrict any use of the information to criminally investigate or prosecute any alcohol or drug abuse patient.[facility] WestIn the event this information is protected by the Federal Confidentiality of Alcohol and Drug Abuse Patient Records regulations: The Federal rules restrict any use of the information to criminally investigate or prosecute any alcohol or drug abuse patient.[facility] WestIn the event this information is protected by the Federal Confidentiality of Alcohol and Drug Abuse Patient Records regulations: The Federal rules restrict any use of the information to criminally investigate or prosecute any alcohol or drug abuse patient.[facility] WestIn the event this information is protected by the Federal Confidentiality of Alcohol and Drug Abuse Patient Records regulations: The Federal rules restrict any use of the information to criminally investigate or prosecute any alcohol or drug abuse patient.[facility] WestIn the event this information is protected by the Federal Confidentiality of Alcohol and Drug Abuse Patient Records regulations: The Federal rules restrict any use of the information to criminally investigate or prosecute any alcohol or drug abuse patient.[facility] WestIn the event this information is protected by the Federal Confidentiality of Alcohol and Drug Abuse Patient Records regulations: The Federal rules restrict any use of the information to criminally investigate or prosecute any alcohol or drug abuse patient.[facility] WestIn the event this information is protected by the Federal Confidentiality of Alcohol and Drug Abuse Patient Records regulations: The Federal rules restrict any use of the information to criminally investigate or prosecute any alcohol or drug abuse patient.[facility] WestIn the event this information is protected by the Federal Confidentiality of Alcohol and Drug Abuse Patient Records regulations: The Federal rules restrict any use of the information to criminally investigate or prosecute any alcohol or drug abuse patient.[facility] WestIn the event this information is protected by the Federal Confidentiality of Alcohol and Drug Abuse Patient Records regulations: The Federal rules restrict any use of the information to criminally investigate or prosecute any alcohol or drug abuse patient.[facility] WestIn the event this information is protected by the Federal Confidentiality of Alcohol and Drug Abuse Patient Records regulations: The Federal rules restrict any use of the information to criminally investigate or prosecute any alcohol or drug abuse patient.[facility] WestIn the event this information is protected by the Federal Confidentiality of Alcohol and Drug Abuse Patient Records regulations: The Federal rules restrict any use of the information to criminally investigate or prosecute any alcohol or drug abuse patient.[facility] WestIn the event this information is protected by the Federal Confidentiality of Alcohol and Drug Abuse Patient Records regulations: The Federal rules restrict any use of the information to criminally investigate or prosecute any alcohol or drug abuse patient.[facility] WestIn the event this information is protected by the Federal Confidentiality of Alcohol and Drug Abuse Patient Records regulations: The Federal rules restrict any use of the information to criminally investigate or prosecute any alcohol or drug abuse patient.[facility] WestIn the event this information is protected by the Federal Confidentiality of Alcohol and Drug Abuse Patient Records regulations: The Federal rules restrict any use of the information to criminally investigate or prosecute any alcohol or drug abuse patient.[facility] WestIn the event this information is protected by the Federal Confidentiality of Alcohol and Drug Abuse Patient Records regulations: The Federal rules restrict any use of the information to criminally investigate or prosecute any alcohol or drug abuse patient.[facility] Reason for Visit (unrecogniz ed section and content) Reason Comments Infusion [facility] Specialty Diagnoses / Procedures Referred By Contac t Referred To Contact Diagnoses Progressive multiple sclerosis (HCC) Procedures INJECTION, OCRELIZUMAB, 1 MG To Vyas MD [address] [place] [address] [facility] [address] [place] [address] Referral ID Status Reason Start Date Expiration Date V isits Requested Visits Authorized [id number] Authorized 10/28/2023 05/31/2024 2 2 Reason Comments New Patient Evaluation Specialty Diagnoses / Procedures Referred By Contac t Referred To Contact Neurology / MULTIPLE SCLEROSIS Diagnoses Myelopathy (HCC) Spinal cord lesion (HCC) Procedures CONSULT TO NEUROLOGY OFFICE/OUTPATIENT 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 60 MINUTES Kevin Holloway MD [address] [place] [address] Referral ID Status Reason Start Date Expiration Date V isits Requested Visits Authorized [id number] Closed PCP Requested Referral 10/04/2023 10/03/2024 1 1 Specialty Diagnoses / Procedures Referred By Contac t Referred To Contact MR IMAGING Diagnoses Demyelinating disease of central nervous system (HCC) Procedures MRI BRAIN WO/W IVCON MRI BRAIN BRAIN STEM W/O W/CONTRAST MATERIAL Kevin Holloway MD [address] [facility] [place] [address] Imaging [place] [id number] Referral ID Status Reason Start Date Expiration Date V isits Requested Visits Authorized [id number] Closed Auto-Generate d Referral 10/11/2023 11/10/2023 1 1 Specialty Diagnoses / Procedures Referred By Contac t Referred To Contact MR IMAGING Diagnoses Demyelinating disease of central nervous system (HCC) Procedures MRI CERVICAL SPINE WO/W IVCON MRI SPINAL CANAL CERVICAL W/O & W/CONTR MATRL Kevin Holloway MD [address] [facility] [place] [address] Mr Imaging [place] [address] Referral ID Status Reason Start Date Expiration Date V isits Requested Visits Authorized [id number] Closed Auto-Generate d Referral 10/11/2023 11/10/2023 1 1 Specialty Diagnoses / Procedures Referred By Contac t Referred To Contact MR IMAGING Diagnoses Demyelinating disease of central nervous system (HCC) Procedures MRI THORACIC SPINE WO/W IVCON MRI SPINAL CANAL THORACIC W/O & W/CONTR MATRL Ontaneda, Kevin, MD [address] [facility] [place] [address] Mr Imaging [place] [address] Referral ID Status Reason Start Date Expiration Date V isits Requested Visits Authorized [id number] Closed Auto-Generate d Referral 10/11/2023 11/10/2023 1 1 Reason Comments Patient Question Patient is requestin latrell to review recent MRI because she has questions about lesions Reason Comments Established Patient Follow-Up Reason Comments Established Patient Follow-Up B-cell SMA Reason Onset Date Comments Refill Request 11/07/2023 Reason Onset Date Comments Refill Request 11/23/2023 Reason Comments Forms [employer] form fa xed back to [phone] Reason Comments Infusion Reason Onset Date Comments Refill Request 12/19/2023 Reason Onset Date Comments Refill Request 12/21/2023 Reason Onset Date Comments Refill Request 12/28/2023 Reason Comments Appointment Called to assist pat ient in scheduling pain, psychology, MRIs, and follow-up visit with Dr. Holloway (preferably a Tuesday afternoon and the same day as her MRI). M with phone number to call when ready to schedule Reason Comments Consult Specialty Diagnoses / Procedures Referred By Linda can Referred To Contact Urology Diagnoses Urinary retention Recurrent UTI Procedures CONSULT TO UROLOGY OFFICE/OUTPATIENT [facility] 60 MINUTES Kevin Holloway MD [address] [facility] [place] [address] Referral ID Status Reason Start Date Expiration Date V isits Requested Visits Authorized [id number] Closed PCP Requested Referral 01/04/2024 01/03/2025 1 1 Reason Onset Date Comments Refill Request 02/13/2024 FOR RECORDS PERTAINING TO PATIENTS WHO ARE OR HAVE BEEN ENROLLED IN A CHEMICAL DEPENDENCY/SUBSTANCEABUSE PROGRAM, SOME INFORMATION MAY BE OMITTED. This clinical summary was aggregated from multiple sources. Caution should be exercised in using it in the provision of clinical care. This summary normalizes information from multiple sources, and as a consequence, information in this document may materially change the coding, format and clinical context of patient data. In addition, data may be omitted in some cases. CLINICAL DECISIONS SHOULD BE BASED ON THE PRIMARY CLINICAL RECORDS. [employer] provides no warranty or guarantee of the accuracy or completeness of information in this document.
[2024-03-02 09:02] LABS: Basophils Absolute Auto 0.1 10^3/uL (0.0-0.1); Basophils Percent Auto 0.7 % (0.2-2.0); Eosinophils Absolute Auto 0.1 10^3/uL (0.0-0.7); Eosinophils Percent Auto 1.6 % (0.9-7.0); Hemoglobin 12.8 g/dL (12.0-16.0); Immature Granulocytes Abs Auto 0.01 10^3/uL (0.00-0.03); Immature Granulocytes Pct Auto 0.1 % (0.0-0.5); Lymphocytes Absolute Auto 2.2 10^3/uL (1.2-3.8); Lymphocytes Percent Auto 29.3 % (20.5-60.0); Mean Corpuscular HGB Conc 32.8 g/dL (29.9-35.2); Mean Corpuscular Hemoglobin 28.3 pg (26.7-34.0); Mean Corpuscular Volume 86.1 fL (81.0-99.0); Mean Platelet Volume 10.1 fL (9.5-13.5); Monocytes Absolute Auto 0.7 10^3/uL (0.3-0.8); Monocytes Percent Auto 9.1 % (1.7-12.0); Neutrophils Absolute Auto 4.4 10^3/uL (1.4-6.5); Neutrophils Percent Auto 59.2 % (43.0-75.0); Platelet Count 242 10^3/uL (150-450); Red Blood Count 4.53 10^6/uL (4.20-5.40); White Blood Count 7.4 10^3/uL (4.0-11.0)
[2024-03-02 09:21] LABS: HCG Quantitative <1 mIU/mL
[2024-03-02] MEDS: 0.9 % SODIUM CHLORIDE 500 ML 50 ML IV ×2 (09:24→10:12)
--- NOTE | 2024-03-02 11:32 | P.ON_ITS ---
Brief Operative Note Date of procedure: 03/02/24 Pre-op diagnosis general: desires permanent sterilization Post-op diagnosis: same as pre-op Procedure: NAME OF PROCEDURE: robotic assisted bilateral laparoscopic salpingectomy PROCEDURE: The patient was taken back to the Operating Room where she was given general anesthesia without difficulty. She was then prepped and draped in the normal sterile fashion after being placed in a dorsal lithotomy position. A wet sponge stick was placed into the patient's vagina. Attention was then turned to the patient's abdomen, where a scalpel was used to make a small infraumbilical incision. The S retractors were then used to dissect the underlying layers until the fascia could be seen. The fascia was then grasped with Myrna clamps and tented up. A knife was then used to make a small incision to the fascia. The muscle was identified, at that time two sutures of #0 Vicryl on a GI needle was then used and placed through the fascia. the peritoneum was then identified and entered bluntly. The 10-4 Daniel was then placed into the patient's abdomen. This was confirmed with direct visualization of the bowel, using the laparoscope. The patient's abdomen was then insufflated using approximately 4 liters of CO2 gas. Survey of the patient's abdomen demonstrated ovaries were normal in appearance as well as both tubes and uterus. A second and third rt and lt lateral robotic ports which were 8 mm in size, was then placed after the skin incision was made under direct visualization . the robotic arms were engaged. The patient's tube on the patient's right side was identified and tented up using a grasper, the ligasure apparatus was then used to come across the mesosalpingx from the fimbriated end to the insertion site at the uterus, the tube was then amputated and removed in its entirety. This was done on the contralateral side. The tubes were the removed from the patients abdomen. Excellent hemostasis was noted. The lateral ports were then moved under direct visualization with excellent hemostasis. All instruments were removed from the patient's abdomen. The fascia was closed using the #0 Vicryl on GI needle. The skin was closed using 4-0 Vicryl subcuticularly. All instruments were removed from the patient's vagina as well. The patient was taken out of the dorsal lithotomy position and placed in the supine position and taken to recovery in stable condition. Sponge, lap and needle counts were correct x2. Anesthesia: GETA Surgeon: Bennett Belle Chief Engineer Research: Moriah Molina Estimated blood loss (mL): 5 Pathology: other (tubes) Condition: stable Disposition: PACU Urinary Catheter Management Urinary Catheter Management Urethral: Cath placed during this visit: no
[2024-03-02] MEDS: MEPERIDINE HCL/PF 25 MG/ML VIAL IM (12:23)
[2024-03-02] MEDS: PROMETHAZINE HCL 25 MG/ML VIAL IM (12:24)
== END 2024-03-02 13:45 | disposition home or self-care (01) ==
PROVIDERS: PCP Nurse Practitioner Family; Visit Provider Obstetrics & Gynecology
PROC: (CPT 840; principal; 2024-03-02 08:40)
DX: Z30.2 Encounter for sterilization (principal); Z90.49 Acquired absence of other specified parts of digestive tract; Z87.891 Personal history of nicotine dependence; G35 Multiple sclerosis; K21.9 Gastro-esophageal reflux disease without esophagitis
CPT/HCPCS: 00840; 58661; 36415; 84702; 85025; 88305; J0131; J1100; J1171; J1885; J2175; J2250; J2405; J2704; J3010

== ENCOUNTER 2025-04-15 12:30 | Outpatient (REF) | payer MEDICARE, MEDICAID, SELFPAY ==
--- OUTSIDE RECORDS SUMMARY | 2025-04-15 14:30 | XMS_ITS | Encounter Summary ---
Author Organization [facility] Address [address] [place] [address] Care Team Providers Care Hog Confinement System Manager Name Role Phone RadhaEula cuellar Unavailable [phone] Daniel Landry MD Primary Care Provider [phone] Julia Chen MD Unavailable [phone] Flora Quintanilla Unavailable Reason for Visit * ReasonCommentsMenorrhagiaEndometrial Biopsy Encounter Details DateTypeDepartmentCare Team (Latest Contact Info)Lnvmljdukor12/24/2025 2:30 PM ESTProcedure Visit [facility] [address] [place] [address] Bennett Belle DO [address] [place] [address] Pre-op examination; Menorrhagia with irregular cycle; Abnormal uterine bleeding; Pelvic pain in female Social History Tobacco UseTypesPacks/DayYears UsedDateSmoking Tobacco: FormerCigarettes 2016 - 01/01/2023Smokeless Tobacco: Never Comments:Was a pack a day sm oker quit October 2022 Alcohol UseStandard Drinks/WeekCommentsNot Currently0 (1 standard drink = 0.6 oz pure alcohol)Maybe once a monthCommentsNoSex and Gender InformationValue Date RecordedSex Assigned at BirthNot on fileLegal KxuEknsfb41/15/2023 10:02 PM EDTGender IdentityNot on fileSexual OrientationNot on filedocumented as of this encounter Last Filed Vital Signs Vital SignReadingTime TakenCommentsBlood Ukmiftit505/7211 2:49 PM EST Pulse--Temperature--Respiratory Rate--Oxygen Saturation--Inhaled Oxygen Concentration--Tjwudf614 kg (222 lb)04/15/2025 2:49 PM ESTHeight--Body Mass Index38.11001/09/2024 1:49 PM EDTdocumented in this encounter Progress Notes * Jeanna Goodwin - 04/15/2025 2:30 PM ESTAssociated Order(s): Endometrial biopsy Pre-Procedure Diagnose(s): Menorrhagia with irregular cycle Post-Procedure Diagnose(s): Menorrhagia with irregular cycle Reason for Appointment: Patient ID: Carrie Bernstein is a 24 y.o. female who presents for Menorrhagia and Endometrial Biopsy Patient presents today for a Pre Op/Endometrial Biopsy appointment. Patient is scheduled to undergoEndometrial Ablation with Isa on 05/10/[address] Belle at [facility]. appointment. MEDICATIONS Current Outpatient Medications Medication Instructions hydrOXYzine HCl (Atarax) 50 MG tablet TAKE 1 TABLET BY MOUTH ONCE DAILY NEEDED FOR ANXIETY FOR UP TO 15 DAYS. LORazepam (Ativan) 0.5 MG tablet PLEASE SEE ATTACHED FOR DETAILED DIRECTIONS nortriptyline (PAMELOR) 20 mg, Oral, 2 times daily OCRELIZUMAB IV Intravenous pregabalin (Lyrica) 100 MG capsule Vyvanse 30 MG capsule 1 capsule, Oral, Daily RT ALLERGIES Allergies Allergen Reactions Coconut (Cocos Nucifera) Itching Coconut Flavoring Agent (Non-Screening) Other Reaction(s): Unknown PROBLEMS Active Ambulatory Problems Diagnosis Date Noted Paresthesia of skin 09/15/2023 Stuttering 09/15/2023 Tension headache 09/15/2023 Vitamin D deficiency 09/15/2023 Resolved Ambulatory Problems Diagnosis Date Noted No Resolved Ambulatory Problems Past Medical History: Diagnosis Date ADHD (attention deficit hyperactivity disorder) Anxiety Breast screening Depression Dysmenorrhea Endometriosis H/O chlamydia infection Menorrhagia Miscarriage ([facility] 2019 Multiple sclerosis Numbness PTSD (post-traumatic stress disorder) HISTORY PAST MEDICAL HISTORY SOCIAL HISTORY Past Medical History: Diagnosis Date ADHD (attention deficit hyperactivity disorder) Anxiety Breast screening Received clinical breast exam but not referred for further evaluation based on their clinical breast exam. Depression Dysmenorrhea Endometriosis H/O chlamydia infection Menorrhagia Miscarriage ([facility]) 2019 Multiple sclerosis Numbness PTSD (post-traumatic stress disorder) Vitamin D deficiency Social History Tobacco Use Smoking status: Former Current packs/day: 0.00 Types: Cigarettes Start date: 2016 Quit date: 01/01/2023 Years since quittin.2 Smokeless tobacco: Never Tobacco comments: Was a pack a day smoker quit October 2022 Substance Use Topics Alcohol use: Not Currently Comment: Maybe once a month Drug use: Yes Types: Marijuana Comment: Active medical card used for PTSD 2x per day as needed FAMILY HISTORY Family History Problem Relation Name Age of Onset ADD / ADHD Mother Catherine Wooten Diabetes Father Sloan Bernstein intermittant explosives do Neuropathy Father Sloan Bernstein SURGICAL HISTORY Past Surgical History: Procedure Laterality Date ADENOIDECTOMY SECTION, LOW TRANSVERSE 03/2015 CHOLECYSTECTOMY 2014 DILATION AND CURETTAGE OF UTERUS HYSTEROSCOPY 07/21/2021 Hysteroscopy Dilation and Curettage with Laparoscopic Cauterization of Endometriosis Implants and Left Ovarian Cystotomy OTHER SURGICAL HISTORY 2011 b/l tubes OTHER SURGICAL HISTORY laparoscopy for endometriosis PAP SMEAR 2019 TONSILLECTOMY REVIEW OF SYSTEMS Review of Systems: Review of Systems Constitutional: Negative. HENT: Negative. Eyes: Negative. Respiratory: Negative. Cardiovascular: Negative. Gastrointestinal: Negative. Genitourinary: Positive for menstrual problem and pelvic pain. Musculoskeletal: Negative. Skin: Negative. Neurological: Negative. All other systems reviewed and are negative. Hematological: Negative. Endocrine: Negative. Allergic/Immunologic: Negative. OBJECTIVE Objective: Physical Exam Constitutional: Appearance: Normal appearance. She is well-developed. Genitourinary: Vulva normal. Cardiovascular: Rate and Rhythm: Normal rate and regular rhythm. Pulmonary: Effort: Pulmonary effort is normal. Breath sounds: Normal breath sounds. Abdominal: General: Bowel sounds are normal. There is no distension. Palpations: Abdomen is soft. Tenderness: There is no abdominal tenderness. There is no guarding or rebound. Musculoskeletal: General: No swelling. Normal range of motion. Right lower leg: No edema. Left lower leg: No edema. Neurological: Mental Status: She is alert and oriented to person, place, and time. Skin: General: Skin is warm and dry. Psychiatric: Mood and Affect: Mood normal. Behavior: Behavior normal. Vitals and nursing note reviewed. Exam conducted with a optical coating technician present. Vitals: Estimated body mass index is 38.11 kg/m?? as calculated from the following: Height as of 01/09/24: 5' 4 . Weight as of this encounter: 222 lb. BP: 122/72 Patient's last menstrual period was 04/15/2025. ASSESSMENT & PLAN Encounter Diagnosis: ICD-10-CM 1. Pre-op examination Z01.818 2. Menorrhagia with irregular cycle N92.1 POCT , urine manually resulted Endometrial biopsy 3. Abnormal uterine bleeding N93.9 4. Pelvic pain in female R10.20 Endometrial biopsy Date/Time: 04/15/2025 3:17 PM Performed by: Bennett Belle DO Authorized by: Bennett Belle DO Consent: Consent obtained: written Consent given by: patient Risks discussed: bleeding Alternatives discussed: alternative treatment Patient agrees, verbalizes understanding, and wants to proceed: yes Procedure explained and questions answered to patient or proxy's satisfaction: yes Indications: Indications: abnormal uterine bleeding Pre-procedure: Urine test: negative Procedure: A bimanual exam was performed: no Prepped with: none Tenaculum used: yes A local block was performed: no Local anesthetic: none Cervix dilated: no Number of passes: 1 Findings: Cervix: normal Specimen collected: specimen collected and sent to pathology Assessment/Plan EMBX: Patient was placed in dorsal lithotomy position with feet in stirrups. A sterile speculum was placed into the vagina and the cervix was visualized. The cervix was grasped with a single tooth tenaculum. The endometrial pipette was placed through the cervix into the uterus, endometrial curettage was performed and sampling was obtained, endometrial curettings were placed in formalin, and single tooth tenaculum was removed. Excellent hemostasis was assured. All instruments were removed from vagina. Pre Op: Patient is doing well but has complaints of bleeding and pelvic pain. Patient has tried hormone therapy in the past but all attempts to subside patients issues have failed. I have discussed conservative management vs. surgical management with the patient in detail and patient desires surgical management at this time. Patient will undergo Endometrial Ablation with Isa on 05/10/2025. Surgical consents were signed, mmc was reviewed, and patient is to proceed to [facility] OR. Follow Up: Patient is to follow up between 1-2 weeks post op to assess proper healing and recovery from procedure. Documented by Josefa San LPN on behalf of: Bennett Belle DO documented in this encounter Plan of Treatment DateTypeDepartmentCare Team (Latest Contact Info)Rkeqlmuylbk42/29/2025 2:30 PM ESTOffice Visit [facility] [address] [place] [address] Flora Quintanilla PA [address] [place] [address] documented as of this encounter Goals GoalPatient Goal TypeAssociated ProblemsRecent ProgressPatient-Stated?Author Reminders Care PlanOB RemindersNoOpen Scheduling, Backgrounddocumented as of this encounter Procedures Procedure NamePriorityDate/TimeAssociated DiagnosisCommentsPOCT , URINE Uxidqcp5904/15/2025 3:19 PM EST Menorrhagia with irregular cycle ENDOMETRIAL MCWDJNYwbvfug99/24/2025 3:17 PM EST Menorrhagia with irregular cycle documented in this encounter Results * POCT , urine manually resulted (04/15/2025 3:19 PM EST)ComponentValue Ref RangeTest MethodAnalysis TimePerformed AtPathologist SignaturePreg Test, UrNegativeNegativeSpecimen (Source)Anatomical Location / LateralityCollection Method / VolumeCollection TimeReceived WaaxJybty73/24/2025 3:19 PM EST Narrative Authorizing ProviderResult TypeResult StatusCoreeva Belle DOPOINT OF CARE TEST ENTER/EDIT ORDERABLESFinal Result * Endometrial biopsy (04/15/2025 3:17 PM EST) Narrative Jeanna Goodwin - 04/15/2025 3:17 PM EST Jeanna Goodwin 04/17/2025 10:54 AM Endometrial biopsy Date/Time: 04/15/2025 3:17 PM Performed by: Bennett Belle DO Authorized by: Bennett Belle DO ?? Consent: ??Consent obtained: written ??Consent given by: patient ??Risks discussed: bleeding ??Alternatives discussed: alternative treatment ??Patient agrees, verbalizes understanding, and wants to proceed: yes ?Procedure explained and questions answered to patient or proxy's satisfaction: yes ?? Indications: ??Indications: abnormal uterine bleeding ?? Pre-procedure: ??Urine test: negative ?? Procedure: ??A bimanual exam was performed: no ?Prepped with: none ??Tenaculum used: yes ?A local block was performed: no ?Local anesthetic: none ??Cervix dilated: no ?Number of passes: 1 Findings: ??Cervix: normal ?Specimen collected: specimen collected and sent to pathology ?? Authorizing ProviderResult TypeResult StatusCorey Yoshi [facility] ORDERABLESFinal Result documented in this encounter Visit Diagnoses Diagnosis Pre-op examination Menorrhagia with irregular cycle Abnormal uterine bleeding Unspecified disorder of menstruation and other abnormal bleeding from female genital tract Pelvic pain in female Unspecified symptom associated with female genital organs documented in this encounter Additional Health Concerns Active ProblemsNoted DateDiagnosed DateOB Xoceggumf57/01/2023 documented as of this encounter Care Teams Team MemberRelationshipSpecialtyStart DateEnd Date Daniel Landry MD [address] [place] [phone] [facility] Flora Quintanilla PA [address] [place] [address] [place], [place] [id number] PCP - [facility]08/21/2510 Eula Garcia DO [address] [id number] Referring PhysicianNeurology08/24/23 Julia Chen MD [address] [place] [address] Referring PhysicianFamily Medicine08/24/23documented as of this encounter
--- OUTSIDE RECORDS SUMMARY | 2025-04-22 12:34 | XMS_ITS | Clinical Summary ---
Author Organization [facility] Address [address] [place] [address] Phone Care Team Providers Care Delinquent Tax Collector Assistant Name Role Phone Unavailable Primary Care Provider Unavailabl e Social History Tobacco UseTypesPacks/DayYears UsedDateSmoking Tobacco: Never Assessed CommentsUnknownSex and Gender InformationValueDate RecordedSex Assigned at Not on fileLegal CvmRlwqlt79/26/2022 5:40 AM ESTGender IdentityNot on fileSexual OrientationNot on file Plan of Treatment Health MaintenanceDue DateLast DoneCommentsHIV Qnlrbrhfb1998Lipid Panel 1998Yearly Adult Cinseldb1998MMR Vaccines (1 of 1 - Standard series) 1999HPV Vaccines (1 - 3-dose series)2013Hepatitis C Screening 2016Hepatitis B Vaccines (1 of 3 - 19+ 3-dose series)2017Cervical Cancer Iezijnjvz37/15/2019HPV/Amotkm9105/06/2019Pap Smear2019DTaP/Tdap/Td Vaccines (1 - Tdap)2020Influenza Vaccine (#1)5COVID-19 Vaccine (1 - season)2025Zoster Vaccines (1 of 2)2048HIB VaccinesAged OutNo longer eligible based on patient's age to complete this topicHepatitis A VaccinesAged OutNo longer eligible based on patient's age to complete this topic IPV VaccinesAged OutNo longer eligible based on patient's age to complete this topicMeningococcal VaccineAged OutNo longer eligible based on patient's age to complete this topicPneumococcal Vaccine: Pediatrics and At-Risk Adult Patients Aged OutNo longer eligible based on patient's age to complete this topic Rotavirus VaccinesAged OutNo longer eligible based on patient's age to complete this topic Insurance MemberSubscriberPlan / Payer (Effective 2023-Present)Name:Carrie Bernstein Relation to Subscriber:SelfName:Carrie Bernstein Payer ID:[id number] (NAIC) Group ID:Not on file Type:Not on file Address: [place] [id number] MemberSubscriberPlan / Payer (Effective 2023-Present)Name:Carrie Bernstein Relation to Subscriber:SelfName:Carrie Bernstein Payer ID:[id number] (NAIC) Group ID:Not on file Type:Not on file Address: [place] [id number]
--- OUTSIDE RECORDS SUMMARY | 2025-04-22 12:34 | XMS_ITS | Clinical Summary ---
Author Organization [facility] Address [address] [place] [address] Care Team Providers Care Service Sprinkler Helper Name Role Phone Unavailable Primary Care Provider Unavailabl e Allergies Active AllergyReactionsCriticalityNoted JmspUjwyrlxeLwypldxBzqlpwb84/04/2024 Medications MedicationSigDispense QuantityRefillsLast FilledStart DateEnd DateStatus VYVANSE 30 mg capsule Take 1 capsule by mouth once daily.08/12/2023ctive ocrelizumab (OCREVUS INTRAVENOUS) Inject intravenously.Active Clindamycin Phosphate (CLEOCIN T) 1 % lotion Indications:Hidradenitis suppurativaApply twice daily as needed for flares 60 mL 11107/05/2023ctive LORazepam (ATIVAN) 0.5 mg Take 0.5 mg by mouth once daily as needed.10/24/2023ctive iv contrast (will be provided with radiology [...] the MR contrast administration guidelines link 1 each 5Active iv contrast (will be provided with radiology test) MRI CSP Inject, intravenously, once for 1 dose. No IV access, insert saline lock prior to the beginning of sedation, infusion, injection of imaging exam. Discontinue saline lock post exam. If Pt. hasa central line or IVAD, may access for administration according to line specific nursing protocol. Once exam is complete flush line and de-access according to line specific nursing protocol in the [facility] administration guidelines link. 1 each 5Active iv contrast (will be provided with radiology test) MRI TSP Inject, intravenously, once for 1 dose. No IV access, insert saline lock prior to the beginning of sedation, infusion, injection of imaging exam. Discontinue saline lock post exam. If Pt. hasa central line or IVAD, may access for administration according to line specific nursing protocol. Once exam is complete flush line and de-access according to line specific nursing protocol in the [facility] administration guidelines link. 1 each 5Active pregablin (LYRICA) 200 mg capsule Indications:Multiple sclerosis,Neuropathic painTake 1 capsule by mouth two times a day for 180 days. 60 capsule ctive nortriptyline (PAMELOR) 10 mg capsule Indications:Neuropathic painTake 2 capsules by mouth two times a day. 120 capsule ctive gabapentin (NEURONTIN) 100 mg capsule Take 300 mg by mouth three times a day./iscontinued baclofen 10 mg tablet Take 1 tablet by mouth three times a day. 270 tablet Expired Active Problems ProblemNoted DateDiagnosed DateProgressive multiple xlrctnsaf83/07/2024Obesity, Class II, BMI 35-39.90/4203ZNZR53/03/2024Neuropathic pain09/23/2023 Alteration in self-care jijpupk0109/23/2023Impaired paqyepqv19/03/2024t risk for falls09/23/2023Nicotine use disorder, F17.Transverse myelitis 09/20/2023Type 2 diabetes mellitus without /21/2016Vitreous floaters of both eyes09/11/2015 Resolved Problems ProblemNoted DateDiagnosed DateResolved DateVasovagal pdjdpzl2309/23/2023 09/26/2023 Encounters DateTypeDepartmentCare HjczGlvcpkflibb99/04/2025 [place] [address] Moriah Marcus, BRICK PICKER.OFFAL WORKER MRI lvyhpm23/05/2024 3:40 PM EDT - 03/23/2025 11:59 PM EDTHospital Encounter MRI [address] [id number] Multiple sclerosis [G35.D] Discharge Disposition: Home03/23/20253913Mclyuv55/30/2025 [place] [address] Provider, [facility] MRI Screening Questionnaire Completion Hdzptjfo78/05/2025 [place] [address] Provider, [facility] MRI Screening Questionnaire Completion Tmadriwl03/02/2025[facility] [address] [id number] Kyle Fierro MD Refill Requestfrom Last 3 Months Family History Medical HistoryRelationCommentsDiabetesFatherGlaucomaFatherMultiple SclerosisNo Family HistoryRelationStatusCommentsFather Social History Tobacco UseTypesPacks/DayYears UsedDateSmoking Tobacco: FormerCigarettes0.52 12/05/2019 - 12/04/2021mokeless Tobacco: Never Tobacco Cessation:Counseling Given: Not Answered Alcohol UseStandard Drinks/WeekCommentsYes0 (1 standard drink = 0.6 oz pure alcohol)occassionallyAHC UtilitiesAnswerDate RecordedIn the past 12 months has the [employer], gas, oil, or water [employer] threatened to shut off services in your home?No10/02/2023Social Connection and Isolation PanelAnswerDate RecordedIn a typical week, how many times do you talk on the phone with family, friends, or neighbors?More than three times a week10/02/2023How often do you get together with friends or relatives?Once a week10/02/2023How often do you attend mandaen or confucianism services?Never10/02/2023o you belong to any clubs or organizations such as mandaen groups, unions, fraternal or athletic groups, or school groups?No 10/02/2023How often do you attend meetings of the clubs or organizations you belong to?Never10/02/2023re you , , , , never , or living with a partner?Living with kuiawcv4610/02/2023UDIT-CAnswerDate RecordedQ1: How often do you have a drink containing alcohol?Monthly or less 10/02/2023Q2: How many drinks containing alcohol do you have on a typical day when you are drinking?1 or Q3: How often do you have six or more drinks on one occasion?Never10/02/2023Overall Financial Resource Strain (CARDIA) AnswerDate RecordedHow hard is it for you to pay for the very basics like food, housing, medical care, and heating?Not very hard10/02/2023HQ-2AnswerDate RecordedPHQ-2 xuzmp834[facility] of Occupational Health - Occupational Stress QuestionnaireAnswerDate RecordedDo you feel stress - tense, restless, nervous, or anxious, or unable to sleep at night because yourmind is troubled all the time - these days?Only a kxwgld7310/02/2023Exercise Vital Sign AnswerDate RecordedOn average, how many days per week do you engage in moderate to strenuous exercise (like a brisk walk)?5 days10/02/2023On average, how many minutes do you engage in exercise at this level?90 min10/02/2023Hunger Vital SignAnswerDate RecordedWithin the past 12 months, you worried that your food would run out before you got the money to buymore.Never true10/02/2023Within the past 12 months, the food you bought just didn't last and you didn't have money to get more.Never true10/02/2023RAPARE - TransportationAnswerDate RecordedIn the past 12 months, has lack of transportation kept you from medical appointments or from getting medications?No10/02/2023In the past 12 months, has lack of transportation kept you from meetings, work, or from getting things needed for daily living?No10/02/2023Housing Stability Vital SignAnswerDate RecordedIn the last 12 months, was there a time when you were not able to pay the mortgage or rent on time?No10/02/2023In the last 12 months, how many places have you lived?In the last 12 months, was there a time when you did not have a steady place to sleep or slept in ashelter (including now)?No 10/02/2023rea Deprivation IndexAnswerDate RecordedNational Score (1-100), lower number is lower vfqy067103/23/2025State Score (1-10), lower number is lower risk9 03/23/2025Data from: https://www.neighborhoodatlas.medicine.[facility].edu/. Last address used for iqdojhzrews[address]/23/2024CommentsNoSex and Gender InformationValueDate RecordedSex Assigned at BirthNot on fileLegal Sex Shjxye7808/07/2015 2:49 PM EDTGender IdentityNot on fileSexual OrientationNot on file Last Filed Vital Signs Vital SignReadingTime TakenCommentsBlood Amkgvfgq030/6808 4:30 PM EDT Kzrum81032 4:30 PM JXVAhjyysmxokw71 ??C (98.6 ??F)12/26/2024 4:30 PM EDT Respiratory Thco152509/27/2023 9:28 AM EDTOxygen Kjnudmqqca246%12/06/2023 12:15 PM EDTInhaled Oxygen Concentration--Nwdtsw73.5 kg (208 lb 5.4 oz)10/24/2023 2:01 PM USLKfnqkd704.6 cm (5' 4.02 )10/24/2023 2:01 PM EDTBody Mass Index35.74 10/24/2023 2:01 PM EDT Plan of Treatment DateTypeDepartmentCare Team (Latest Contact Info)Qyitsgcnvvi43/06/2026 8:00 AM ESTInfusion Center [facility] [address] [place] [id number] Multiple Hgkqbbfka28/11/2026 2:[address] [address] Moriah Marcus, BRICK PICKER.OFFAL WORKER [address] [place] [address] Follow upHealth MaintenanceDue DateLast DoneCommentsDiabetic Foot Exam2008 Urine Albumin:Creatinine Ratio2008Peds To Adult Transition Initial Avzplyrreg60/15/2010Peds To Adult Transition Annual Ecqutactbw88/15/2012nnual PCP Team Chronic Disease Visit2016Anxiety Avlhfbxlv62/15/2016Depression Sfuxjgggq55/15/2016LDL Xqqtfycmqmo63/15/2016Dilated Retinal Exam09/10/2016 09/11/2015, 09/11/2015Pneumococcal Vaccine (1 of 2 - PCV)2017Cervical Cancer Vsawisimb94/15/2912XuD9N27///11/2022Medicare Annual Wellness Visit12/21/2024ovid-19 Vaccine (1 - season)2025Influenza Vaccine (#1), 02/26/2014DTaP,Tdap,Td Vaccine (6 - Td or Tdap) 3106/07/2022, 04/15/2013, 09/30/2010, Additional history existsHPV WcwrrplIzuvpnjuk15/21/2015, 02/26/2014, 03/01/2012Hepatitis B VaccineCompleted 05/05/2015, 01/28/2014, 12/23/2013, Additional history existsHIV Screening Kfjeivhid74/30/2024Hepatitis C DanugnucdRmrhlovql07/13/2024 Procedures Procedure NamePriorityDate/TimeAssociated DiagnosisCommentsMRI THORACIC SPINE WO/W ANLJVUvoubav38/01/2025 5:14 PM EDT Multiple sclerosis Encounter for long-term (current) use of medications MRI CERVICAL SPINE WO/W WUISNEotzvkc57/01/2025 5:14 PM EDT Multiple sclerosis Encounter for long-term (current) use of medications MRI BRAIN WO/W HEDWMHisxvtg53/01/2025 5:14 PM EDT Multiple sclerosis Encounter for long-term (current) use of medications BRAIN & CERVICAL SPINE MRI DISCRETE GRIMHpxfyyn02/01/2025 5:13 PM EDT BRAIN & CERVICAL SPINE MRI DISCRETE MINNQnpfrqa45/01/2025 5:13 PM EDT HEPATITIS C ANTIBODY IA WITH FBGEFXGTBSMIYitnvwy80/13/2024 4:04 PM EDT Other chronic pain HIV 1/2 COMBO WITH REFLEX TO WVXHCGGLPIRWEDEMinisey51/30/2024 2:22 PM EDT from Last 3 Months or Most Recently Relevant to Health Maintenance Results * MRI THORACIC SPINE WO/W IVCON (03/23/2025 5:14 PM EDT)Anatomical Region LateralityModalityT-spineMagnetic ResonanceSpecimen (Source)Anatomical Location / LateralityCollection Method / VolumeCollection TimeReceived Time 03/23/2025 5:13 PM EDT Impressions 03/23/2025 9:04 PM EDT IMPRESSION: Mild interval improvement of previously seen demyelinating lesions in this thoracic cord. ??No new lesion or abnormal enhancement Anatomic Thoracic/Lumbar Variant: Assume the first normal thoracic rib is at the T1 level. Java Lead Architect: STEPHEN ?? Transcribe Date/Time: Mar ??2024 ??8:41P Dictated by : GERARDO HUMMEL MD This examination was interpreted and the report reviewed and electronically signed by: GERARDO HUMMEL MD on Mar ??2024 ??9:02PM ??EST Narrative 03/23/2025 9:04 PM EDT * * *Final Report* * * DATE OF EXAM: Mar ??2024 ??5:13PM ?? QBM ?? 0326 ??- ??MRI THORACIC SPINE WO/W IVCON ??/ PROCEDURE REASON: multiple diagnoses ? * * * * Physician Interpretation * * * * EXAMINATION: ??MRI THORACIC SPINE WO/W IVCON CLINICAL HISTORY: ??Multiple sclerosis Encounter for long-term (current) use of medications TECHNIQUE: ??Routine thoracic spine MR protocol with and without intravenous gadolinium. ?? MQ: ??MTSWO_3 COMPARISON: MRI dated 10/25/2023. RESULT: Counting reference: ??Craniocervical and lumbosacral junctions. ??For the purposes of this report, ??Assume the first normal thoracic rib is at the T1 level. Localizer images: ??No additional findings. Alignment: ??Alignment is anatomic. Cord: ??Redemonstration of cord signal abnormalities in the thoracic cord more prominently at T10-T11, mildly improved compared to prior study is slightly reduced prominence. ??No new lesion or abnormal enhancement. Bone marrow signal/fracture: ??No evidence of pathologic marrow infiltration. ??No evidence of prior fracture. Thoracic paraspinal soft tissues: ??The paraspinal soft tissues are within normal limits. Canal and foramina: ??The thoracic canal and foramina are patent. Procedure Note Provider, [facility] - 03/23/2025 * * *Final Report* * * DATE OF EXAM: Mar 23 2025 5:13PM QBM 0326 - MRI THORACIC SPINE WO/W IVCON / PROCEDURE REASON: multiple diagnoses * * * * Physician Interpretation * * * * EXAMINATION: MRI THORACIC SPINE WO/W IVCON CLINICAL HISTORY: Multiple sclerosis Encounter for long-term (current) use of medications TECHNIQUE: Routine thoracic spine MR protocol with and without intravenous gadolinium. MQ: MTSWO_3 COMPARISON: MRI dated 10/25/2023. RESULT: Counting reference: Craniocervical and lumbosacral junctions. For the purposes of this report, Assume the first normal thoracic rib is at the T1 level. Localizer images: No additional findings. Alignment: Alignment is anatomic. Cord: Redemonstration of cord signal abnormalities in the thoracic cord more prominently at T10-T11, mildly improved compared to prior study is slightly reduced prominence. No new lesion or abnormal enhancement. Bone marrow signal/fracture: No evidence of pathologic marrow infiltration. No evidence of prior fracture. Thoracic paraspinal soft tissues: The paraspinal soft tissues are within normal limits. Canal and foramina: The thoracic canal and foramina are patent. IMPRESSION IMPRESSION: Mild interval improvement of previously seen demyelinating lesions in this thoracic cord. No new lesion or abnormal enhancement Anatomic Thoracic/Lumbar Variant: Assume the first normal thoracic rib is at the T1 level. Java Lead Architect: STEPHEN Transcribe Date/Time: Mar 23 2025 8:41P Dictated by : GERARDO HUMMEL MD This examination was interpreted and the report reviewed and electronically signed by: GERARDO HUMMEL MD on Mar 23 2025 9:02PM EST Authorizing ProviderResult TypeResult StatusMoriah Marcus APRN.[facility] Final Result * MRI CERVICAL SPINE WO/W IVCON (03/23/2025 5:14 PM EDT)Anatomical Region LateralityModalityC-spineMagnetic ResonanceSpecimen (Source)Anatomical Location / LateralityCollection Method / VolumeCollection TimeReceived Time 03/23/2025 5:13 PM EDT Impressions 03/23/2025 8:55 PM EDT IMPRESSION: There is 1 single focus of pericallosal FLAIR signal abnormality in the RIGHT periventricular white matter image: 68 series: 7 without enhancement redemonstrated, unchanged. ?No new T2 lesions and no new enhancing lesions. ??No significant parenchymal volume loss. Other Significant Intracranial Findings: ??None Scattered intramedullary lesions compatible with the clinical history of multiple sclerosis. ??No new T2 intramedullary lesions and no new enhancing intramedullary lesions. ??No significant volume loss of the upper spinal cord for age. Other Significant Cervical Spine Findings: ??Small central disc protrusion with moderate canal stenosis and mild mass effect on spinal cord at C4-C5. Cervical Anatomic Variant: ??None. ??Assume 7 cervical vertebrae with counting from the craniocervical junction. Java Lead Architect: PSCKirstie ?? Transcribe Date/Time: Mar ??2024 ??8:40P Dictated by : GERARDO HUMMEL MD This examination was interpreted and the report reviewed and electronically signed by: GERARDO HUMMEL MD on Mar ??2024 ??8:52PM ??EST Narrative 03/23/2025 8:55 PM EDT * * *Final Report* * * DATE OF EXAM: Mar ??2024 ??5:13PM ?? QBM ?? 0298 ??- ??MRI CERVICAL SPINE WO/W IVCON ??/ PROCEDURE REASON: multiple diagnoses ? * * * * Physician Interpretation * * * * EXAMINATION: ?? MRI BRAIN WO/W IVCON, MRI CERVICAL SPINE WO/W IVCON HISTORY: Multiple sclerosis. ??Routine follow-up TECHNIQUE: Brain MRI with demyelinating disease protocol with and without gadolinium. Routine cervical spine protocol with and without gadolinium. MQ: ??MRBMSPlusWOW_3 Contrast: ??9.5 mL Elucirem IV COMPARISON: ??None RESULT: MR BRAIN: Parenchymal Findings: There is 1 single focus of pericallosal FLAIR signal abnormality in the RIGHT periventricular white matter image: 68 series: 7 without enhancement redemonstrated, unchanged. New T2 Lesions: ?? None Site(s) of New/Larger T2 Lesion(s): Not applicable Interval Improvement: ??None. New Enhancing Lesions: ??None T2 [place] of Disease: ??Mild. Parenchymal Volume Loss: None. Other Significant Findings: ??None. MR CERVICAL: Counting reference: ??Craniocervical junction. ?? Anatomic Variants: ??None. Alignment: ?? Alignment is anatomic. Craniocervical Junction: ?Craniocervical junction is normal. Cord Findings: ??Central T2 hyperintense cord signal at the level of C3-C4 and at C5-C6 redemonstrated not significantly changed. Cord T2 Plaque [place]: ??Mild New T2 Lesions: ??None Interval Cord Improvement: ??None New Cord Enhancing Lesions: ??None Cord Volume Loss: ??Normal morphology for age Bone marrow signal/fracture: ?? No evidence of pathologic marrow infiltration. ??No evidence of prior fracture. ??Mild multilevel disc height loss. Cervical soft tissues: ?? The paraspinal soft tissues are within normal limits. Cervical Canal and foramina: ?? Small disc protrusion with moderate canal stenosis at C4-C5 with mild mass effect at C4-C5. *Note: The definition of new T2 Lesions includes both new and enlarging plaques on T2-weighted FLAIR images (new lesions greater than or equal to 5mm3 or an increase in diameter of an existing lesion by greater than or equal to 2mm). Procedure Note Provider, [facility] - 03/23/2025 * * *Final Report* * * DATE OF EXAM: Mar 23 2025 5:13PM [facility] 0298 - MRI CERVICAL SPINE WO/W IVCON / PROCEDURE REASON: multiple diagnoses * * * * Physician Interpretation * * * * EXAMINATION: MRI BRAIN WO/W IVCON, MRI CERVICAL SPINE WO/W IVCON HISTORY: Multiple sclerosis. Routine follow-up TECHNIQUE: Brain MRI with demyelinating disease protocol with and without gadolinium. Routine cervical spine protocol with and without gadolinium. MQ: MRBMSPlusWOW_3 Contrast: 9.5 mL Elucirem IV COMPARISON: None RESULT: MR BRAIN: Parenchymal Findings: There is 1 single focus of pericallosal FLAIR signal abnormality in the RIGHT periventricular white matter image: 68 series: 7 without enhancement redemonstrated, unchanged. New T2 Lesions: None Site(s) of New/Larger T2 Lesion(s): Not applicable Interval Improvement: None. New Enhancing Lesions: None T2 [place] of Disease: Mild. Parenchymal Volume Loss: None. Other Significant Findings: None. MR CERVICAL: Counting reference: Craniocervical junction. Anatomic Variants:None. Alignment: Alignment is anatomic. Craniocervical Junction: Craniocervical junction is normal. Cord Findings: Central T2 hyperintense cord signal at the level of C3-C4 and at C5-C6 redemonstrated not significantly changed. Cord T2 Plaque [place]: Mild New T2 Lesions: None Interval Cord Improvement: None New Cord Enhancing Lesions: None Cord Volume Loss: Normal morphology for age Bone marrow signal/fracture: No evidence of pathologic marrow infiltration. No evidence of prior fracture. Mild multilevel disc height loss. Cervical soft tissues: The paraspinal soft tissues are within normal limits. Cervical Canal and foramina: Small disc protrusion with moderate canal stenosis at C4-C5 with mild mass effect at C4-C5. *Note: The definition of new T2 Lesions includes both new and enlarging plaques on T2-weighted FLAIR images (new lesions greater than or equal to 5mm3 or an increase in diameter of an existing lesion by greater than or equal to 2mm). IMPRESSION IMPRESSION: There is 1 single focus of pericallosal FLAIR signal abnormality in the RIGHT periventricular white matter image: 68 series: 7 without enhancement redemonstrated, unchanged. No new T2 lesions and no new enhancing lesions. No significant parenchymal volume loss. Other Significant Intracranial Findings: None Scattered intramedullary lesions compatible with the clinical history of multiple sclerosis. No new T2 intramedullary lesions and no new enhancing intramedullary lesions. No significant volume loss of the upper spinal cord for age. Other Significant Cervical Spine Findings: Small central disc protrusion with moderate canal stenosis and mild mass effect on spinal cord atC4-C5. Cervical Anatomic Variant: None. Assume 7 cervical vertebrae with counting from the craniocervical junction. Java Lead Architect: STEPHEN Transcribe Date/Time: Mar 23 2025 8:40P Dictated by : GERARDO HUMMEL MD This examination was interpreted and the report reviewed and electronically signed by: GERARDO HUMMEL MD on Mar 23 2025 8:52PM EST Authorizing ProviderResult TypeResult StatusMoriah Marcus APRN.[facility] Final Result * MRI BRAIN WO/W IVCON (03/23/2025 5:14 PM EDT)Anatomical RegionLaterality ModalityHeadMagnetic ResonanceSpecimen (Source)Anatomical Location / LateralityCollection Method / VolumeCollection TimeReceived Time03/23/2025 5:13 PM EDT Impressions 03/23/2025 8:55 PM EDT IMPRESSION: There is 1 single focus of pericallosal FLAIR signal abnormality in the RIGHT periventricular white matter image: 68 series: 7 without enhancement redemonstrated, unchanged. ?No new T2 lesions and no new enhancing lesions. ??No significant parenchymal volume loss. Other Significant Intracranial Findings: ??None Scattered intramedullary lesions compatible with the clinical history of multiple sclerosis. ??No new T2 intramedullary lesions and no new enhancing intramedullary lesions. ??No significant volume loss of the upper spinal cord for age. Other Significant Cervical Spine Findings: ??Small central disc protrusion with moderate canal stenosis and mild mass effect on spinal cord at C4-C5. Cervical Anatomic Variant: ??None. ??Assume 7 cervical vertebrae with counting from the craniocervical junction. Java Lead Architect: STEPHEN ?? Transcribe Date/Time: Mar ??2024 ??8:40P Dictated by : GERARDO HUMMEL MD This examination was interpreted and the report reviewed and electronically signed by: GERARDO HUMMEL MD on Mar ??2024 ??8:52PM ??EST Narrative 03/23/2025 8:55 PM EDT * * *Final Report* * * DATE OF EXAM: Mar ??2024 ??5:13PM ?? QBM ?? [id number] ??- ??MRI BRAIN WO/W IVCON ??/ PROCEDURE REASON: multiple diagnoses ? * * * * Physician Interpretation * * * * EXAMINATION: ?? MRI BRAIN WO/W IVCON, MRI CERVICAL SPINE WO/W IVCON HISTORY: Multiple sclerosis. ??Routine follow-up TECHNIQUE: Brain MRI with demyelinating disease protocol with and without gadolinium. Routine cervical spine protocol with and without gadolinium. MQ: ??MRBMSPlusWOW_3 Contrast: ??9.5 mL Elucirem IV COMPARISON: ??None RESULT: MR BRAIN: Parenchymal Findings: There is 1 single focus of pericallosal FLAIR signal abnormality in the RIGHT periventricular white matter image: 68 series: 7 without enhancement redemonstrated, unchanged. New T2 Lesions: ?? None Site(s) of New/Larger T2 Lesion(s): Not applicable Interval Improvement: ??None. New Enhancing Lesions: ??None T2 [place] of Disease: ??Mild. Parenchymal Volume Loss: None. Other Significant Findings: ??None. MR CERVICAL: Counting reference: ??Craniocervical junction. ?? Anatomic Variants: ??None. Alignment: ?? Alignment is anatomic. Craniocervical Junction: ?Craniocervical junction is normal. Cord Findings: ??Central T2 hyperintense cord signal at the level of C3-C4 and at C5-C6 redemonstrated not significantly changed. Cord T2 Plaque [place]: ??Mild New T2 Lesions: ??None Interval Cord Improvement: ??None New Cord Enhancing Lesions: ??None Cord Volume Loss: ??Normal morphology for age Bone marrow signal/fracture: ?? No evidence of pathologic marrow infiltration. ??No evidence of prior fracture. ??Mild multilevel disc height loss. Cervical soft tissues: ?? The paraspinal soft tissues are within normal limits. Cervical Canal and foramina: ?? Small disc protrusion with moderate canal stenosis at C4-C5 with mild mass effect at C4-C5. *Note: The definition of new T2 Lesions includes both new and enlarging plaques on T2-weighted FLAIR images (new lesions greater than or equal to 5mm3 or an increase in diameter of an existing lesion by greater than or equal to 2mm). Procedure Note Provider, [facility] - 03/23/2025 * * *Final Report* * * DATE OF EXAM: Mar 23 2025 5:13PM QBM 0295 - MRI BRAIN WO/W IVCON / PROCEDURE REASON: multiple diagnoses * * * * Physician Interpretation * * * * EXAMINATION: MRI BRAIN WO/W IVCON, MRI CERVICAL SPINE WO/W IVCON HISTORY: Multiple sclerosis. Routine follow-up TECHNIQUE: Brain MRI with demyelinating disease protocol with and without gadolinium. Routine cervical spine protocol with and without gadolinium. MQ: MRBMSPlusWOW_3 Contrast: 9.5 mL Elucirem IV COMPARISON: None RESULT: MR BRAIN: Parenchymal Findings: There is 1 single focus of pericallosal FLAIR signal abnormality in the RIGHT periventricular white matter image: 68 series: 7 without enhancement redemonstrated, unchanged. New T2 Lesions: None Site(s) of New/Larger T2 Lesion(s): Not applicable Interval Improvement: None. New Enhancing Lesions: None T2 [place] of Disease: Mild. Parenchymal Volume Loss: None. Other Significant Findings: None. MR CERVICAL: Counting reference: Craniocervical junction. Anatomic Variants:None. Alignment: Alignment is anatomic. Craniocervical Junction: Craniocervical junction is normal. Cord Findings: Central T2 hyperintense cord signal at the level of C3-C4 and at C5-C6 redemonstrated not significantly changed. Cord T2 Plaque [place]: Mild New T2 Lesions: None Interval Cord Improvement: None New Cord Enhancing Lesions: None Cord Volume Loss: Normal morphology for age Bone marrow signal/fracture: No evidence of pathologic marrow infiltration. No evidence of prior fracture. Mild multilevel disc height loss. Cervical soft tissues: The paraspinal soft tissues are within normal limits. Cervical Canal and foramina: Small disc protrusion with moderate canal stenosis at C4-C5 with mild mass effect at C4-C5. *Note: The definition of new T2 Lesions includes both new and enlarging plaques on T2-weighted FLAIR images (new lesions greater than or equal to 5mm3 or an increase in diameter of an existing lesion by greater than or equal to 2mm). IMPRESSION IMPRESSION: There is 1 single focus of pericallosal FLAIR signal abnormality in the RIGHT periventricular white matter image: 68 series: 7 without enhancement redemonstrated, unchanged. No new T2 lesions and no new enhancing lesions. No significant parenchymal volume loss. Other Significant Intracranial Findings: None Scattered intramedullary lesions compatible with the clinical history of multiple sclerosis. No new T2 intramedullary lesions and no new enhancing intramedullary lesions. No significant volume loss of the upper spinal cord for age. Other Significant Cervical Spine Findings: Small central disc protrusion with moderate canal stenosis and mild mass effect on spinal cord atC4-C5. Cervical Anatomic Variant: None. Assume 7 cervical vertebrae with counting from the craniocervical junction. Java Lead Architect: STEPHEN Transcribe Date/Time: Mar 23 2025 8:40P Dictated by : GERARDO HUMMEL MD This examination was interpreted and the report reviewed and electronically signed by: GERARDO HUMMEL MD on Mar 23 2025 8:52PM EST Authorizing ProviderResult TypeResult StatusJennifer Michelle Marcus BRICK PICKER.CNPI-PAMA Final Result * BRAIN & CERVICAL SPINE MRI DISCRETE DATA (03/23/2025 5:13 PM EDT)Component ValueRef RangeTest MethodAnalysis TimePerformed AtPathologist Signature Cervical Spine T2 [place] of DiseaseMildDIVISION OF RADIOLOGYCervical Spine New T2 LesionsNoneDIVISION OF RADIOLOGYCervical spine enhancing lesionsNone DIVISION OF RADIOLOGYBrain New T2 LesionsNone SiteDIVISION OF RADIOLOGYBrain Interval ImprovementNoneDIVISION OF RADIOLOGYBrain Enhancing LesionsNone DIVISION OF RADIOLOGYBrain T2 [place] of DiseaseMildDIVISION OF RADIOLOGYBrain Parenchymal Volume LossNoneDIVISION OF RADIOLOGYBrain Other Significant MRI FindingsNone.DIVISION OF RADIOLOGYAnatomical RegionLateralityModalityMagnetic ResonanceSpecimen (Source)Anatomical Location / LateralityCollection Method / VolumeCollection TimeReceived Time03/23/2025 5:13 PM EDT Narrative Authorizing ProviderResult TypeResult StatusCcf ProviderMRIFinal Result * BRAIN & CERVICAL SPINE MRI DISCRETE DATA (03/23/2025 5:13 PM EDT)Component ValueRef RangeTest MethodAnalysis TimePerformed AtPathologist Signature Cervical Spine T2 [place] of DiseaseMildDIVISION OF RADIOLOGYCervical Spine New T2 LesionsNoneDIVISION OF RADIOLOGYCervical spine enhancing lesionsNone DIVISION OF RADIOLOGYBrain New T2 LesionsNone SiteDIVISION OF RADIOLOGYBrain Interval ImprovementNoneDIVISION OF RADIOLOGYBrain Enhancing LesionsNone DIVISION OF RADIOLOGYBrain T2 [place] of DiseaseMildDIVISION OF RADIOLOGYBrain Parenchymal Volume LossNoneDIVISION OF RADIOLOGYBrain Other Significant MRI FindingsNone.DIVISION OF RADIOLOGYAnatomical RegionLateralityModalityMagnetic ResonanceSpecimen (Source)Anatomical Location / LateralityCollection Method / VolumeCollection TimeReceived Time03/23/2025 5:13 PM EDT Narrative Authorizing ProviderResult TypeResult StatusCcf ProviderMRIFinal Result * HEPATITIS C ANTIBODY IA WITH CONFIRMATION (11/03/2023 4:04 PM EDT)Component ValueRef RangeTest MethodAnalysis TimePerformed AtPathologist SignatureHep C Antibody ROYrpbtymjSpwzvcml75/14/2024 11:45 AM EDCENTERVILLE LABComment:The result suggests no evidence of active infection with Hepatitis C virus. Should recent infectionbe suspected, repeat testing may be considered 4-6 weeks after this draw.Specimen (Source)Anatomical Location / LateralityCollection Method / VolumeCollection TimeReceived TimeBloodBLOOD SPECIMEN / UnknownVenipuncture / Fpdssfp1111/03/2023 4:04 PM EDT11/03/2023 4:04 PM EDT Narrative Authorizing ProviderResult TypeResult StatusJustin Talia Vyas MDLABORATORY Final ResultPerforming OrganizationAddressCity/State/[facility] CodePhone Number [facility] [address] * HIV 1/2 COMBO WITH REFLEX TO DIFFERENTIATION (09/20/2023 2:22 PM EDT)Component ValueRef RangeTest MethodAnalysis TimePerformed AtPathologist SignatureHIV 12 Combo (Ag/Ab)JfhuapvwaonSpbborujiwf30/30/2024 7:20 PM [facility] LABHIV-1/2 AB (Confirmatory)09/20/2023 7:20 PM [facility] LABComment:Test not indicated.HIV Ywnfrbezpoiljy12/30/2024 7:20 PM [facility] LABComment: No evidence of HIV-1 or HIV-2 infection. Should recent infection be suspected, repeat testing may be considered 2-3 weeks after this draw. [place] Rev. Code 3701.243(E): This information has been disclosed to you from confidential records protected from disclosure by state law. ??You shall make no further disclosure of this information without the specific, written, and informed release of the individual to whom it pertains or as otherwise permitted by state law. A general authorization for the release of medical or other information is not sufficient for the purpose of the release of HIV test results or diagnoses. Specimen (Source)Anatomical Location / LateralityCollection Method / Volume Collection TimeReceived TimeBloodBLOOD SPECIMEN / UnknownVenipuncture / Unknown 09/20/2023 2:22 PM EDT09/20/2023 2:47 PM EDT Narrative Authorizing ProviderResult TypeResult StatusBedanita Boothe MDLABORATORYFinal ResultPerforming OrganizationAddressCity/State/ZIP CodePhone Number [facility] [address] [facility] [address] [place] [address], from Last 3 Months or Most Recently Relevant to Health Maintenance Insurance Advance Directives * Full Code (Latest Code Status on File) Date ActivatedDate InactivatedComments09/25/2023 3:17 AM09/27/2023 6:23 PMQuestion AnswerCommentsFull Code Order Discussed With:* Patient
--- OUTSIDE RECORDS SUMMARY | 2025-04-22 12:34 | XMS_ITS | Clinical Summary ---
Author Organization [employer] [facility] tem Address [id number] [place] [address] Care Team Providers Care Grain Sampler Name Role Phone April Julia Hastings APRN-ETHNIC STUDIES PROFESSOR Primary Care Provider Allergies No known active allergies Medications MedicationSigDispense QuantityRefillsLast FilledStart DateEnd DateStatus ibuprofen (MOTRIN) 800 mg tablet Take 1 tablet (800 mg total) by mouth every 6 (six) hours as needed for pain. Active acetaminophen (TYLENOL EXTRA STRENGTH) 500 mg tablet Take 2 tablets (1,000 mg total) by mouth every 6 (six) hours as needed for pain. 30 tablet 3Active Social History Tobacco UseTypesPacks/DayYears UsedDateSmoking Tobacco: NeverSmokeless Tobacco: Never Tobacco Cessation:Counseling Given: Not Answered Alcohol UseStandard Drinks/WeekCommentsNever0 (1 standard drink = 0.6 oz pure alcohol)CommentsNoSex and Gender InformationValueDate RecordedSex Assigned at BirthNot on fileLegal TrtOzfydp29/20/2023 12:13 AM ESTGender IdentityNot on fileSexual OrientationNot on file Last Filed Vital Signs Vital SignReadingTime TakenCommentsBlood Ipxgkjwi783/5804/11/2023 4:45 AM EST Arqbr114504/11/2023 4:45 AM VIQVyffpifsgjv62.8 ??C (98.3 ??F)04/11/2023 12:55 AM ESTRespiratory Uizs448506/11/2022 12:29 AM ESTOxygen Saturation--Inhaled Oxygen Concentration--Zvwlfp14.2 kg (190 lb)09/05/2023 7:18 AM EDTHeight--Body Mass Index-- Plan of Treatment Health MaintenanceDue DateLast DoneCommentsDepression Lqehxezay57/15/2010Tobacco Nlznhykwt11/15/2010dult BMI Ywheingzk52/15/2016Pap Smear2019Influenza Wbfngii85/01/335616/, 02/26/2014DTaP,Tdap and Td Vaccines (6 - Td or Tdap)3106/07/2022, 04/15/2013, 09/30/2010, Additional history exists Medical Devices Not on file Insurance * Guarantor: Carrie BernsteinAccount TypeRelation to PatientDate of BirthPhone Billing AddressPersonal/JjxpalQvuc2000 [address] [place] [address] Care Teams Team MemberRelationshipSpecialtyStart DateEnd Date Julia Chen APRN-ETHNIC STUDIES PROFESSOR [address] [place] [address] PCP - GeneralFamily Medicine08/22/23
--- OUTSIDE RECORDS SUMMARY | 2025-04-22 12:35 | XMS_ITS | Encounter Summary ---
Author Organization [facility] Address [address] [place] [address] Care Team Providers Care Operations And Maintenance Manager Name Role Phone Unavailable Primary Care Provider Unavailabl e Source Comments In the event this information is protected by the Federal Confidentiality of Alcohol and Drug AbusePatient Records regulations: The Federal rules restrict any use of the information to criminally investigate or prosecute any alcohol or drug abuse patient.[facility] Reason for Visit * ReasonCommentsMedication Problem Encounter Details DateTypeDepartmentCare Team (Latest Contact Info)Leqrqgemoyp46/29/2024[facility] [place] [address] [place] [address] Jai Ordoñez MD [address] [place] [address] Medication Problem Social History Tobacco UseTypesPacks/DayYears UsedDateSmoking Tobacco: FormerCigarettes0.52 12/05/2019 - 12/04/2021mokeless Tobacco: NeverAlcohol UseStandard Drinks/Week CommentsYes0 (1 standard drink = 0.6 oz pure alcohol)occassionallyAHC Utilities AnswerDate RecordedIn the past 12 months has the electric, gas, oil, or water company threatened to shut off services in your home?No10/02/2023Social Connection and Isolation PanelAnswerDate RecordedIn a typical week, how many times do you talk on the phone with family, friends, or neighbors?More than three times a week10/02/2023How often do you get together with friends or relatives?Once a week10/02/2023How often do you attend orthodox or voodoo services?Never10/02/2023o you belong to any clubs or organizations such as orthodox groups, unions, fraternal or athletic groups, or school groups?No 10/02/2023How often do you attend meetings of the clubs or organizations you belong to?Never10/02/2023re you , , , , never , or living with a partner?Living with snlvivx5010/02/2023UDIT-CAnswerDate RecordedQ1: How often do you have a [...] medical care, and heating?Not very hard10/02/2023HQ-2AnswerDate RecordedPHQ-2 phwus041[facility] [place] of Occupational Health - Occupational Stress QuestionnaireAnswerDate RecordedDo you feel stress - tense, restless, nervous, or anxious, or unable to sleep at night because yourmind is troubled all the time - these days?Only a nknzfj1710/02/2023Exercise Vital Sign AnswerDate RecordedOn average, how many [...] RecordedNational Score (1-100), lower number is lower lakk621903/23/2025State Score (1-10), lower number is lower risk9 03/23/2025Data from: https://www.neighborhoodatlas.[facility].edu/. Last address used for ndavlxzhyym[address]/23/2024CommentsNoSex and Gender InformationValueDate RecordedSex Assigned at BirthNot on fileLegal Sex Vlelad4508/07/2015 2:49 PM EDTGender IdentityNot on fileSexual OrientationNot on filedocumented as of this encounter Functional Status * Are you deaf or do you have serious difficulty hearing?AnswerDate of UdpvfzszthRzssxqZe53/07/2024 12:35 PM Chavo Davila RN * Are you blind or do you have serious difficulty seeing, even when wearing glasses?AnswerDate of XxuxmlpekpZdrnzbBs13/07/2024 12:35 PM Chavo Davila RN * Do you have serious difficulty walking or climbing stairs?AnswerDate of HfwbbjgrezZbmctqVfo47/07/2024 12:35 PM Chavo Davila RN * Do you have difficulty dressing or bathing?AnswerDate of AssessmentAuthorYes 09/27/2023 12:35 PM Chavo Davila RN * Because of a physical, mental, or emotional condition, do you have difficulty doing errands alone such as visiting a doctor's office or shopping?AnswerDate of GzinaovmeqZfxzhfHdb33/07/2024 12:35 PM Chavo Davila RN documented as of this encounter Mental Status * Because of a physical, mental, or emotional condition, do you have serious difficulty concentrating, remembering, or making decisions?AnswerEntry Date XgecsmTe75/07/2024 12:35 PM Chavo Davila RN documented in this encounter Miscellaneous Notes * Telephone Encounter - Jai Ordoñez MD - 04/23/2024 2:36 PM EST Thanks! I called the patient and ordered prescription as 200 mg BID, which is actually slightly less than currently prescribed total daily dose but patient was okay with this. * Telephone Encounter - Karmen Jon - 04/23/2024 1:22 PM EST Perico Call Name of caller : Carrie Bernstein Relationship to patient: Self Return call phone number : [phone] Reason for call : Other : Brief description of concern : The patient's insurance is requesting that you changed the medication to 200 mg in the morning and 200 mg in the night. This way there is no PA needed. * Telephone Encounter - Shanon Chiu HUC - 04/20/2024 1:00 PM EST Perico Call Name of caller : Carrie Relationship to patient: Self Return call phone number : [phone] Reason for call : Other : Brief description of concern : Patient advised Lyrica needs a PA Patient advised that they are worried about withdraw as they are almost out of medication and they would like call to discuss. Patonet advised they have called in regards to this several times. documented in this encounter Plan of Treatment DateTypeDepartmentCare Team (Latest Contact Info)Jcgyqhstesq07/06/2026 8:00 AM ESTInfusion Center Multiple Sclerosis [address] [place] [address] Multiple Awmwiqlzp01/11/2026 2:45 PM ESTOffice Visit [address] [address] Moriah Marcus, INSURANCE AGENCY SALES MANAGER.DIRECTOR CONSUMER [address] [facility] [address] [place] [address] Follow updocumented as of this encounter Visit Diagnoses Not on filedocumented in this encounter
--- OUTSIDE RECORDS SUMMARY | 2025-04-22 12:35 | XMS_ITS | Clinical Summary ---
Author Organization [facility] Address [address] [facility], [address] [place] [address] Care Team Providers Care Head Transfer Clerk Name Role Phone AprilReannaJulia S SUPERVISOR DAIRY SANITATION - FLUORESCENT LIGHTING MODEL MAKER Primary Care Provide r Allergies No known active allergies Medications MedicationSigDispense QuantityRefillsLast FilledStart DateEnd DateStatus ondansetron (ZOFRAN-ODT) 4 MG disintegrating tablet Take 1 tablet by mouth 3 times daily as needed for Nausea or Vomiting 15 tablet 04/05/2024ctive nortriptyline (PAMELOR) 10 MG capsule Take 2 capsules by mouth 2 times daily11/07/2023ctive nortriptyline (PAMELOR) 10 MG capsule Take 2 capsules by mouth 2 times daily for 2 days 8 capsule 05/23/2024tive Social History Tobacco UseTypesPacks/DayYears UsedDateSmoking Tobacco: Never Assessed Interpersonal Safety Domain Source: IP Abuse ScreeningAnswerDate Recorded Physical dviwoCddwiz97/01/2025Verbal hcwnzCnrugd62/01/2025Emotional abuseDenies 05/23/2024Financial qsixzSlzkjy41/01/2025Sexual axhjbKjsrpn15/01/2025 CommentsNoSex and Gender InformationValueDate RecordedSex Assigned at BirthNot on fileLegal RdhEzkdhu00/07/2024 10:47 PM EDTGender IdentityNot on fileSexual OrientationNot on file Last Filed Vital Signs Vital SignReadingTime TakenCommentsBlood Irrbnxqr084/66005/23/2024 11:23 AM EST Pkbuw715105/23/2024 11:23 AM BUCKhiafyqwwhs10.5 ??C (97.7 ??F)05/23/2024 11:23 AM ESTRespiratory Efiq392005/23/2024 11:23 AM ESTOxygen Kprcwfypua638%05/23/2024 11:23 AM ESTInhaled Oxygen Concentration--Cuoptz21.8 kg (220 lb)05/23/2024 11:23 AM JGZJsqyss794.6 cm (5' 4 )05/23/2024 11:23 AM ESTBody Mass Index37.76 05/23/2024 11:23 AM EST Plan of Treatment Health MaintenanceDue DateLast DoneCommentsDTaP/Tdap/Td vaccine (1 - Tdap) 2017Flu vaccine (#1)12/21/2024OVID-19 Vaccine ( - season) 2025Polio vaccineAged OutNo longer eligible based on patient's age to complete this topic Insurance * Guarantor: Carrie BernsteinAccount TypeRelation to PatientDate of BirthPhone Billing AddressPersonal/PstqrgTnnz2000 [address] [place] [address] Care Teams Team MemberRelationshipSpecialtyStart DateEnd Date Julia Chen, SUPERVISOR DAIRY SANITATION - FLUORESCENT LIGHTING MODEL MAKER [address] [place] [address] PCP - General05/23/24
--- OUTSIDE RECORDS SUMMARY | 2025-04-22 12:35 | XMS_ITS | Clinical Summary ---
Author Organization [facility] Address [address] [place] [address] Care Team Providers Care Machine Maintenance Repairer Name Role Phone Eula Garcia DO Unavailable Daniel Landry MD Primary Care Provider [phone] Julia Chen MD Unavailable [phone] Allergies Active AllergyReactionsCriticalityNoted DateCommentsCoconut (Cocos Nucifera) Xkhbkbo93/04/2024Coconut Flavoring Agent (Non-Screening)12/17/2022 Other Reaction(s): Unknown Medications MedicationSigDispense QuantityRefillsLast FilledStart DateEnd DateStatus nortriptyline (Pamelor) 10 MG capsule Take 20 mg by mouth in the morning and 20 mg in the evening.11/07/2023ctive Vyvanse 30 MG capsule Take 1 capsule by mouth in the morning.08/12/2023ctive hydrOXYzine HCl (Atarax) 50 MG tablet TAKE 1 TABLET BY MOUTH ONCE DAILY NEEDED FOR ANXIETY FOR UP TO 15 DAYS. 12/21/2023ctive OCRELIZUMAB IV Infuse into a venous catheterActive LORazepam (Ativan) 0.5 MG tablet PLEASE SEE ATTACHED FOR DETAILED PFAQSCWCSZ38/03/2024ctive pregabalin (Lyrica) 100 MG capsule 09/23/2023ctive valACYclovir (Valtrex) 1 g tablet Indications:Cold soreTake 1 tablet (1,000 mg) by mouth in the morning and 1 tablet (1,000 mg) before bedtime. Do all this for 10 days. 20 tablet 10/22/682653/01/2025Expired Active Problems ProblemNoted DateDiagnosed DateParesthesia of skin09/15/20230883Kqlqjfbvvc90/25/2024 Tension ovanwvpw28/25/2024Vitamin D ryetkhkpug16/25/2024 Encounters DateTypeDepartmentCare ZbskKbkubpepwxc62/24/2025 2:30 PM ESTProcedure Visit [facility] [address] [place] [address] Bennett Belle DO Pre-op examination; Menorrhagia with irregular cycle; Abnormal uterine bleeding; Pelvic pain in uhuojy5203/13/2025 1:50 PM EDTOffice Visit [facility] [address] [place] [address] Bennett Belle DO Menorrhagia with irregular cycle; Cold sore1amboo flowsheet [facility] [address] [place] [address] Bennett Belle DO 03/12/2025Travelfrom Last 3 Months Family History Medical HistoryRelationNameCommentsDiabetesFatherLamont Sherrellintermittant explosives doNeuropathyFatherLamont SherrellADD / ADHDMotherNancy KelleyRelation NameStatusCommentsBrother(12)FatherLamont SherrellAliveMotherNancy KelleyAlive Sister(13) Social History Tobacco UseTypesPacks/DayYears UsedDateSmoking Tobacco: FormerCigarettes 2016 - 01/01/2023Smokeless Tobacco: Never Tobacco Cessation:Counseling Given: Not Answered Comments:Was a pack a day smoker quit October 2022 Alcohol UseStandard Drinks/WeekCommentsNot Currently0 (1 standard drink = 0.6 oz pure alcohol)Maybe once a monthCommentsNoSex and Gender InformationValue Date RecordedSex Assigned at BirthNot on fileLegal JcwWytgtq83/15/2023 10:02 PM EDTGender IdentityNot on fileSexual OrientationNot on file Last Filed Vital Signs Vital SignReadingTime TakenCommentsBlood Dulfpnzx776/7211 2:49 PM EST Tbwvn228509/15/2023 8:40 AM EDTTemperature--Respiratory Nbzb683009/15/2023 8:40 AM EDTOxygen Iczxpqatxo748%09/15/2023 8:40 AM EDTInhaled Oxygen Concentration-- Nchjsw644 kg (222 lb)04/15/2025 2:49 PM IZEUofgwy333.6 cm (5' 4 )01/09/2024 1:49 PM EDTBody Mass Index38.11001/09/2024 1:49 PM EDT Plan of Treatment DateTypeDepartmentCare Team (Latest Contact Info)Qjkghriwyds23/29/2025 2:30 PM ESTOffice Visit [facility] [address] [place] [address] Flora Quintanilla PA [address] [place], [place] [id number] Health MaintenanceDue DateLast DoneCommentsMedicare Annual Wellness (AWV) /OVID-19 Vaccine ( season)2025Influenza Vaccine (#1)/, 02/26/2014Pneumococcal Vaccine: Pediatrics (0 to 5 Years) and At-Risk Patients (6 to 64 Years)Aged OutNo longer eligible based on patient's age to complete this topic Goals GoalPatient Goal TypeAssociated ProblemsRecent ProgressPatient-Stated?Author Reminders Care PlanOB RemindersNoOpen Scheduling, Background Procedures Procedure NamePriorityDate/TimeAssociated DiagnosisCommentsPOCT , URINE Nhrmbvs1504/15/2025 3:19 PM EST Menorrhagia with irregular cycle ENDOMETRIAL MHSUDSXxxxzgd84/24/2025 3:17 PM EST Menorrhagia with irregular cycle from Last 3 Months Results * POCT , urine manually resulted (04/15/2025 3:19 PM EST)ComponentValue Ref RangeTest MethodAnalysis TimePerformed AtPathologist SignaturePreg Test, UrNegativeNegativeSpecimen (Source)Anatomical Location / LateralityCollection Method / VolumeCollection TimeReceived FfxsYkvwu73/24/2025 3:19 PM EST Narrative Authorizing ProviderResult TypeResult StatusBennett Belle DOPOINT OF CARE TEST ENTER/EDIT ORDERABLESFinal [...] sent to pathology ?? Authorizing ProviderResult TypeResult StatusBennett Belle DOIN CLINIC/BEDSIDE ORDERABLESFinal Result from Last 3 Months Additional Health Concerns Active ProblemsNoted DateDiagnosed DateOB Kmbkcpcqq76/01/2023 Insurance Care Teams Team MemberRelationshipSpecialtyStart DateEnd Daniel Landry MD [facility] [place] [address] [phone] PCP - GeneralFamily Medicine08/24/23 Eula Garcia DO [address] [place], [place] [address] Referring PhysicianNeurology08/24/23 Julia Chen MD [facility] [place], [place] [phone] Referring PhysicianFamily Medicine08/24/23
--- OUTSIDE RECORDS SUMMARY | 2025-04-22 12:35 | XMS_ITS | Encounter Summary ---
Author Organization [facility] Address [address] [place] [address] Care Team Providers Care Retirement Officer Name Role Phone Unavailable Primary Care Provider Unavailabl e Source Comments In the event this information is protected by the Federal Confidentiality of Alcohol and Drug AbusePatient Records regulations: The Federal rules restrict any use of the information to criminally investigate or prosecute any alcohol or drug abuse patient.[facility] Reason for Visit * ReasonCommentsOrdersWheelchair Encounter Details DateTypeDepartmentCare Team (Latest Contact Info)Ycnkppomdnm52/20/2024[facility] [address] [phone] Kevin Holloway MD [address] [place] [address] Orders (Wheelchair ) Social History Tobacco UseTypesPacks/DayYears UsedDateSmoking Tobacco: FormerCigarettes0.52 12/05/2019 - 2Smokeless Tobacco: NeverAlcohol UseStandard Drinks/Week CommentsYes0 (1 standard drink = 0.6 oz pure alcohol)occassionallyAHC Utilities AnswerDate RecordedIn the past 12 months has the [employer], gas, oil, or water [employer] threatened to shut off services in your home?No10/02/2023Social Connection and Isolation PanelAnswerDate RecordedIn a typical week, how many times do you talk on the phone with family, friends, or neighbors?More than three times a week10/02/2023How often do you get together with friends or relatives?Once a week10/02/2023How often do you attend restorationist or islam services?Never10/02/2023o you belong to any clubs or organizations such as restorationist groups, unions, fraternal or athletic groups, or school groups?No 10/02/2023How often do you attend meetings of the clubs or organizations you belong to?Never10/02/2023re you , , , , never , or living with a partner?Living with krjbdiz8210/02/2023UDIT-CAnswerDate RecordedQ1: How often do you have a [...] medical care, and heating?Not very hard10/02/2023HQ-2AnswerDate RecordedPHQ-2 vmxjt525Finst. [facility] [place] of Occupational Health - Occupational Stress QuestionnaireAnswerDate RecordedDo you feel stress - tense, restless, nervous, or anxious, or unable to sleep at night because yourmind is troubled all the time - these days?Only a zmnxbc2210/02/2023Exercise Vital Sign AnswerDate RecordedOn average, how many [...] RecordedNational Score (1-100), lower number is lower cvgh660403/23/2025State Score (1-10), lower number is lower risk9 03/23/2025Data from: https://www.neighborhoodatlas.medicine.[facility].edu/. Last address used for ce[address]/23/[address]24CommentsNoSex and Gender InformationValueDate RecordedSex Assigned at BirthNot on fileLegal Sex Zlvtir6808/07/2015 2:49 PM EDTGender IdentityNot on fileSexual OrientationNot on filedocumented as of this encounter Functional Status * Are you deaf or do you have serious difficulty hearing?AnswerDate of TjkfvrgjwnJjzadnNy01/07/2024 12:35 PM Chavo Davila RN * Are you blind or do you have serious difficulty seeing, even when wearing glasses?AnswerDate of IbvbtzqdnoJdzgulZe11/07/2024 12:35 PM Chavo Davila RN * Do you have serious difficulty walking or climbing stairs?AnswerDate of MxauxaehchHtwctsEra42/07/2024 12:35 PM Chavo Davila RN * Do you have difficulty dressing or bathing?AnswerDate of AssessmentAuthorYes 09/27/2023 12:35 PM Chavo Davila RN * Because of a physical, mental, or emotional condition, do you have difficulty doing errands alone such as visiting a doctor's office or shopping?AnswerDate of TsfdudbvkvMysoncObl39/07/2024 12:35 PM Chavo Davila RN documented as of this encounter Mental Status * Because of a physical, mental, or emotional condition, do you have serious difficulty concentrating, remembering, or making decisions?AnswerEntry Date WxmevrTl05/07/2024 12:35 PM Chavo Davila RN documented in this encounter Miscellaneous Notes * Telephone Encounter - Christina Mckenna - 04/11/2024 11:40 AM EST Lawrence Call Name of caller : [facility] Relationship to patient: Return call phone number : [phone] Reason for call : received incomplete Medical Necessity Rx on 04/04/2024 for a Wheelchair; missing signatures and date (2nd Signature Required on form that is missing. ) Fax completed CMN to : [phone] documented in this encounter Plan of Treatment DateTypeDepartmentCare Team (Latest Contact Info)Iusbvahzvpo44/06/2026 8:00 AM ESTInfusion Center Multiple Sclerosis [address] [place], [place] [id number] Multiple Lfwehgpmn76/11/2026 2:45 PM ESTOffice Visit [place] [phone] Moriah Marcus, STEWARD/STEWARDESS LOUNGE.SEMICONDUCTOR WAFERS TESTER [address] [place] [address] Follow updocumented as of this encounter Visit Diagnoses Not on filedocumented in this encounter
--- OUTSIDE RECORDS SUMMARY | 2025-04-22 12:35 | XMS_ITS | Encounter Summary ---
Author Organization [facility] Address [address] [place] [address] Care Team Providers Care Tinsmith Apprentice Name Role Phone Unavailable Primary Care Provider Unavailabl e Source Comments In the event this information is protected by the Federal Confidentiality of Alcohol and Drug AbusePatient Records regulations: The Federal rules restrict any use of the information to criminally investigate or prosecute any alcohol or drug abuse patient.[facility] Reason for Visit * ReasonCommentsMedication Problem Encounter Details DateTypeDepartmentCare Team (Latest Contact Info)Hdjcyiaxhgp02/27/2024[facility] [address] [address] Jai Ordoñez MD [address] [place] [id number] Medication Problem Social History Tobacco UseTypesPacks/DayYears UsedDateSmoking [...] relatives?Once a week10/02/2023How often do you attend christian or presybeterian services?Never10/02/2023o you belong to any clubs or organizations such as christian groups, unions, fraternal or athletic groups, or school groups?No 10/02/2023How often do you attend meetings of the clubs or organizations you belong to?Never10/02/2023re you , , , , never , or living with a partner?Living with sxvstua8910/02/2023UDIT-CAnswerDate RecordedQ1: How often do you have a [...] medical care, and heating?Not very hard10/02/2023HQ-2AnswerDate RecordedPHQ-2 ohgjm476Fintimpanogos regional hospital [place] of Occupational Health - Occupational Stress QuestionnaireAnswerDate RecordedDo you feel stress - tense, restless, nervous, or anxious, or unable to sleep at night because yourmind is troubled all the time - these days?Only a sgixlb5010/02/2023Exercise Vital Sign AnswerDate RecordedOn average, how many [...] RecordedNational Score (1-100), lower number is lower aypu920703/23/2025State Score (1-10), lower number is lower risk9 03/23/2025Data from: https://www.neighborhoodatlas.[facility].edu/. Last address used for o[address]vk[address]/23/2024CommentsNoSex and Gender InformationValueDate RecordedSex Assigned at BirthNot on fileLegal Sex Ulcrem8808/07/2015 2:49 PM EDTGender IdentityNot on fileSexual OrientationNot on filedocumented as of this encounter Functional Status * Are you deaf or do you have serious difficulty hearing?AnswerDate of ZmsfdhdrhtPhdblcJt48/07/2024 12:35 PM Chavo Davila RN * Are you blind or do you have serious difficulty seeing, even when wearing glasses?AnswerDate of ShkgdjgsdxXlldeuUl84/07/2024 12:35 PM Chavo Davila RN * Do you have serious difficulty walking or climbing stairs?AnswerDate of WyoqpzhupjQtgteqNou69/07/2024 12:35 PM Chavo Davila RN * Do you have difficulty dressing or bathing?AnswerDate of AssessmentAuthorYes 09/27/2023 12:35 PM Chavo Davila RN * Because of a physical, mental, or emotional condition, do you have difficulty doing errands alone such as visiting a doctor's office or shopping?AnswerDate of MzfepblvkeKpimgvKfl00/07/2024 12:35 PM Chavo Davila RN documented as of this encounter Mental Status * Because of a physical, mental, or emotional condition, do you have serious difficulty concentrating, remembering, or making decisions?AnswerEntry Date SqrqodZo62/07/2024 12:35 PM Chavo Davila RN documented in this encounter Miscellaneous Notes * Telephone Encounter - Shanon Chiu [facility] - 04/18/2024 3:03 PM EST [place] Call Name of caller : Carrie Relationship to patient: Self Return call phone number : [phone] Reason for call : Other : Brief description of concern : Patient calling for refill on Baclofen advised refill has been sent patient worried they withdraw from medication if not sent away. Script sent HP documented in this encounter Plan of Treatment DateTypeDepartmentCare Team (Latest Contact Info)Acvrnyiuwvs84/06/2026 8:00 AM ESTInfusion Center Multiple Sclerosis [address] [place] [address] Multiple Ilsxomfvw02/11/2026 2:45 PM ESTOffice Visit [address] [address] Moriah Marcus, SHUTTLE FINAL INSPECTOR.IT COMPLIANCE ANALYST [address] [place] [address] Follow updocumented as of this encounter Visit Diagnoses Not on filedocumented in this encounter
--- OUTSIDE RECORDS SUMMARY | 2025-04-22 12:51 | XMS_ITS | CCD ---
Author Organization [facility] Care Team Providers Care Rehabilitation Attendant Name Role Phone ROBIN PINZON Unavailable Unavailable IMCA Unavailable Unavailable ROBIN PINZON Unavailable Unavailable ROSIBEL PLEITEZ Attending Unavailable DANGELO POWER Attending Unavailable NICK Andersen Primary Care Provider [phone] LAURO Garcia Emergency Provider [phone] NICK Mcguire Primary Care Provider [phone] DO Eula Garcia Attending Provider APRIL, JULIA Primary Care Unavailable EULA GARCIA Attending Unavailable EULA GARCIA Consulting Unavailable EULA GARCIA Admitting Unavailable JOSEFINA HORVATH Consulting Unavailable APRIL, JULIA Admitting Unavailable APRIL, JULIA Attending Unavailable APRIL, JULIA Consulting Unavailable APRIL, JULIA Primary Care Unavailable KATALINA BORJA Consulting Unavailable APRIL, JULIA Admitting Unavailable APRIL, JULIA Attending Unavailable APRIL, JLUIA Consulting Unavailable APRIL, JULIA Primary Care Unavailable JANINE, DR CHARLES Watkins Attending Unavailabl e JANINE, DR CHARLES Watkins Consulting Unavailabl e JANINE, DR CHARLES Watkins Admitting Unavailabl e APRIL, JULIA Primary Care Unavailable ANDRZEJ, DR SAMMI Cortez Consulting Unavailable QUINCY ., SUSANA BLEDSOE Consulting Unavailabl IVAN Higuera Consulting Unavailable APRIL, JULIA Admitting Unavailable APRIL, JULIA Attending Unavailable APRIL, JULIA Consulting Unavailable APRIL, JULIA Primary Care Unavailable APRIL, JULIA Admitting Unavailable APRIL, JULIA Attending Unavailable APRIL, JULIA Consulting Unavailable APRIL, JULIA Primary Care Unavailable LATIA SEBASTIAN Consulting Unavailable April, MOSAIC TILE MAKER-C Julia Isela Primary Care Provider LAURO Berman Attending Provider LAURO Berman Referring Provider CHELO BERMAN Referring Unavailabl e APRIL, JULIA S Primary Care Unavailable DO Eula Garcia Attending Provider Unavailable Primary Care Provider Unavailabl e April, Julia Isela Imelda Primary Care Unav ailable Chelo Berman Attending Unavailable Chelo Berman Admitting Unavailable Unknown COATER OPERATOR - MOSAIC TILE MAKER, Provider Primary Care Provide r Unavailable ONTANEDA, SONYA Referring Unavailable ONTANEDA, SONYA Referring Unavailable ONTANEDA, SONYA Referring Unavailable CHELO BERMAN Referring Unavailabl e APRIL, JULIA S Primary Care Unavailable APRIL, JULIA S Referring Unavailable APRIL, JULIA S Primary Care Unavailable APRIL, JULIA S Referring Unavailable APRIL, JULIA S Primary Care Unavailable Eula Garcia DO Unavailable Daniel Landry MD Primary Care Provider [phone] April BROUSSARD, Julia Unavailable DO Bennett Belle Attending Provider [phone] Chelo Berman Referring Unavailable Chelo Berman Attending Unavailable Chelo Berman Admitting Unavailable April, Julia Isela Primary Care Unavailable April, Julia Isela Primary Care Unavailable Eula Garcia Attending Unavailable Eula Garcia Admitting Unavailable Tiburcio Bass Attending Unavailable Tiburcio Bass Admitting Unavailable April, Julia Isela Primary Care Unavailable Bennett Belle Attending Unavailable Bennett Belle Admitting Unavailable Unknown MD, Provider Primary Care Provider Unava ilable April COATER OPERATOR - CUTTER OPERATOR HELPER, Julia S Primary Care Provide r DANIEL STANLEY Referring Unavail able UNKNOWN, PROVIDER Primary Care Unavailable AHMET MENESES Attending Unavailable UNKNOWN, PROVIDER Primary Care Unavailable TRUE PEDROZA Attending Unavailable APRIL, JULIA S Primary Care Unavailable DANIEL STANLEY Referring Unavail able UNKNOWN, PROVIDER Primary Care Unavailable DANIEL STANLEY Referring Unavail able UNKNOWN, PROVIDER Primary Care Unavailable DANIEL STANLEY Referring Unavail able UNKNOWN, PROVIDER Primary Care Unavailable UNKNOWN, PROVIDER Primary Care Unavailable DANIEL STANLEY Referring Unavail able Daniel Landry MD Primary Care Provider Eula Garcia DO Unavailable Daniel Landry MD Primary Care Provider [phone] Julia Mcguire MD Unavailable Flora Leal Unavailable BENNETT BELLE Attending Unavailable MORIAH MARCUS Attending Unavailable MORIAH MARCUS Referring Unavailable NAZANIN HANSEN Attending Unavailable ABBTO ROE Referring Unavailabl e ABBTO ROE Referring Unavailabl e Allergies Allergy ClassificationReported Allergen(s)Allergy TypeDate of OnsetReaction(s) Facility (20 sources)Coconut extract; Translations: [Coconut]Drug [id number] [facility] (7 sources)Coconut extractDrug [id number] Work Phone: (2 sources)Coconut FlavorAllergy to qfcddoign12-74-4150[facility] (5 sources)Coconut Flavoring Agent (Non-Screening)Allergy to [id number] [facility] Medications Current Medications MedicationDrug Class(es)DatesSig (Normalized)Sig (Original)baclofen 10 mg oral tablet (20 sources)gamma-Aminobutyric Acid-ergic AgonistStart: 05-23-2024 End: 67-27-7716friz 1 dose by mouth once10 mg, Oral, ONCE, 1 dose, On Tue05/23/24 at 1145Start: 04-18-2024 End: 67-38-1770koyg 1 tablet by mouth three times dailybaclofen 10 mg tablet Take 1 tablet by mouth three times a day. 270 tablet 1 09/27/2024 03/26/2025 A ctiveStart: 11-23-2023 End: 55-14-1569xskzdxmt (Lioresal) 10 MG tablet Take 10 mg by mouth in the morning and 10 mg at noon and 10 mg in the evening. 12/29/2023 03/28/2024 Active Start: 09-27-2023 End: 62-21-0498vyte 2.5 mg enteral route every twelve hours as neededbaclofen 5 mg tablet 0.5 tablets by ORAL/FEEDING TUBE route two times a day as needed. 0 /11/2023 DiscontinuedStart: 09-23-2023 End: 17-65-6276sjfd 1 tablet by mouth three times dailybaclofen 5 mg tablet Take 1 tablet by mouth three times a day. 90 tablet 2 09/27/2023 11/23/2023 Dis continuedcephalexin 500 mg oral capsule (8 sources)Cephalosporin AntibacterialStart: 05-23-2024 End: 02-10-8754jyhu 1 capsule by mouth twice dailycephALEXin (KEFLEX) 500 MG capsule Take 1 capsule by mouth 2 times daily for 7 days 14 capsule 05/23/2024 05/30/2024 ActiveStart: 05-23-2024 End: 83-14-4470brrr 1 dose by mouth nwsg715 mg, Oral, ONCE, 1 dose, On Tue05/23/24 at 1400, Antimicrobial Indications: Urinary Tract InfectionStart: 04-05-2024 End: 74-38-3706zczh 1 capsule by mouth four times dailycephALEXin (KEFLEX) 500 MG capsule Take 1 capsule by mouth 4 times daily for 20 days 20 capsule 03/2304/25/2024 ActiveStart: 02-06-2017 End: 75-64-8588cava 1 g by mouth twice dailyCephalexin (Keflex) 500 mg capsule Discontinued 1 GM PO Twice daily 28 February 06, 2017 12:00am February 11, 2017 10:02pmciprofloxacin 500 mg oral tablet (1 source)Quinolone AntimicrobialStart: 10-04-2024 End: 91-93-5291jmkw 1 tablet by mouth in the morningciprofloxacin (Cipro) 500 MG tablet Indications: Urinary Tract Infection Take 1 tablet (500 mg) by mouth in the morning and 1 tablet (500 mg) before bedtime. Do all this for 7 days. 14 tablet 10/04/2024 10/11/2024 Activeclindamycin 10 mg/ml topical lotion (20 sources)Lincosamide AntibacterialStart: 64-35-1586Otdxlcpaqxl Phosphate (CLEOCIN T) 1 % lotion Indications: Hidradenitis suppurativa Apply twice daily as needed for flares 60 mL 11 05/04/2024 Activedocusate sodium 100 mg oral capsule (3 sources)Start: 99-61-3972iuxh 100 mg by mouth once daily at bedtimeDocusate Sodium Active 100 MG PO Daily at bedtime April 07, 2023 1:00am HYDROmorphone hydrochloride 2 mg oral tablet (3 sources)Opioid AgonistStart: 27-29-0410yukf 1 tablet by mouth every six hours Hydromorphone (Dilaudid) 2 mg tablet Active 2 MG PO Q6H 09 12April 07, 2023 hydrOXYzine hydrochloride 50 mg oral tablet (20 sources)AntihistamineStart: 12-19-2023 End: 10-17-9062fcbb 1 tablet by mouth once daily as needed for anxiety hydrOXYzine HCl (Atarax) 50 MG tablet TAKE 1 TABLET BY MOUTH ONCE DAILY NEEDED FOR ANXIETY FOR UP TO 15 DAYS. 12/21/2023 ActiveStart: 11-17-2023 End: 24-19-4731iswr 1 tablet by mouth once daily as needed for anxiety hydrOXYzine HCl (ATARAX) 50 mg tablet Take 1 tablet by mouth once daily as needed for anxiety. 30 tablet 0 11/17/2023 12/17/2023 Active End: 56-14-4720lzmy 1 capsule by mouth twice dailyhydrOXYzine pamoate (VISTARIL) 50 mg capsule Take 50 mg by mouth twice daily. 0 09/20/2023 Discontinued ibuprofen 600 mg oral tablet (15 sources)Nonsteroidal Anti-inflammatory DrugStart: 94-62-0149dmri 600 mg by mouth every six hoursIbuprofen Active 600 MG PO Q6H 60 April 07, 2023 1:00amStart: 11-09-2018 End: 78-35-3857btjn 800 mg by mouth three times dailyIbuprofen Discontinued 800 MG PO Three times daily November 13, 2018 12:00am April 03, 2020 11:45pm Start: 05-27-2017 End: 42-48-5103vrid 1 tablet by mouth every six hours as neededibuprofen (MOTRIN) 800 mg tablet Take 1 tablet by mouth every 6 hours as needed for Pain or Fever. 21 tablet 0 05/27/2017 09/20/2023 Discontinuediv contrast (will be provided with radiology test) (20 sources)Start: 25-94-0757ozfdte 1 dose intravenously onceiv contrast (will be provided with radiology test) [...] MR contrast administration guidelines link 1 each 01/02/2025 ActiveStart: 75-21-6281ok contrast (will be provided with radiology test) [...] the MR contrast administration guidelines link. 1 each 0 01/02/2025 ActiveStart: 42-67-0680zttims 1 dose intravenously onceiv contrast (will be provided with radiology test) MRI TSP Inject, intravenously, once for 1 dose. No IV access, insert saline lock prior to the beginning of sedation, infusion, injection of imaging exam. Discontinue saline lock post exam. If Pt. has a central line or IVAD, may access for administration according to line specific nursing protocol. Once exam is complete flush line and de-access acc ording to line specific nursing protocol in the MR contrast administration guidelines link. 1 each 01/02/2025 ActiveStart: 12-01-2023 End: 03-62-8063vt contrast (will be provided with radiology test) [...] contrast administration guidelines link. 1 Each 12/01/2023 01/02/2025 DiscontinuedStart: 12-01-2023 End: 43-62-5864kvfsni 1 dose intravenously onceiv contrast (will be provided with radiology test) [...] contrast administration guidelines link. 1 Each 12/01/2023 01/02/2025 DiscontinuedStart: 12-01-2023 End: 72-73-7579neqsbl 1 dose intravenously onceiv contrast (will be provided with radiology test) Indications: Demyelinating disease of central nervous system (HCC) MRI Brain Inject, intravenously, once for 1 dose.No IV access, insert saline lockprior to beginning of sedation, infusion, injection of imaging exam.Discontinue saline lock post exam. If Pt. has a central line or IVAD, may access for administration according to line specific nursing protocol.Once exam is complete flush line and de-access according to line specific nursing protocol in the MR contrast administration guidelines link 1 Each 12/01/2023 01/02/2025 DiscontinuedStart: 51-49-1880gp contrast (will be provided with radiology test) [...] contrast administration guidelines link. 1 Each 12/01/2023 ActiveStart: 41-70-3140nuoxfc 1 dose intravenously onceiv contrast (will be provided with radiology test) Indications: Demyelinating disease of central nervous system (HCC) MRI Brain Inject, intravenously, once for 1 dose.No IV access, insert saline lockprior to beginning of sedation, infusion, injection of imaging exam.Discontinue saline lock post exam. If Pt. has a central line or IVAD, may access for administration according to line specific nursing protocol.Once exam is complete flush line and de-access according to line specific nursing protocol in the MR contrast administration guidelines link 1 Each 12/01/2023 Active Start: 42-03-4792sjsxuh 1 dose intravenously onceiv contrast (will be provided with radiology test) [...] contrast administration guidelines link. 1 Each 12/01/2023 ActiveStart: 96-17-9789rm contrast (will be provided with radiology test) [...] link. 1 Each 0 12/01/2023 Active Start: 07-45-6723jgvrzs 1 dose intravenously onceiv contrast (will be provided with radiology test) [...] administration guidelines link. 1 Each 0 12/01/2023 ActiveStart: 49-73-3398lgbttw 1 dose intravenously onceiv contrast (will be provided with radiology test) Indications: Demyelinating disease of central nervous system (HCC) MRI Brain Inject, intravenously, once for 1 dose.No IV access, insert saline lockprior to beginning of sedation, infusion, injection of imaging exam.Discontinue saline lock post exam. If Pt. has a central line or IVAD, may access for administration according to line specific nursing protocol.Once exam is complete flush line and de-access according to line specific nursing protocol in the MR contrast administration guidelines link 1 Each 0 12/01/2023 ActiveStart: 10-04-2023 End: 83-45-7846kgogma 1 dose intravenously onceiv contrast (will be provided with radiology test) [...] guidelines link 1 Each 0 10/04/2023 10/05/2023 ActiveStart: 10-04-2023 End: 85-07-0852yr contrast (will be provided with radiology test) [...] guidelines link. 1 Each 0 10/04/2023 10/05/2023 ActiveStart: 10-04-2023 End: 39-64-5789bizbns 1 dose intravenously onceiv contrast (will be provided with radiology test) [...] guidelines link. 1 Each 0 10/04/2023 10/05/2023 ActiveStart: 09-20-2023 End: 57-36-8407we contrast (will be provided with radiology test) CT Chest ABD/PEL-Inject, intravenously, once for1 dose.No IV access, insert saline lock prior to the beginning of sedation, infusion, injection of imaging exam. Discontinue saline lock post exam. If Pt. has a central line or IVAD, may access for administration according to line specific nursing protocol. Once exam is complete flush line and de-access according to line specific nursing protocol in the CT contrast administration guidelines link.1 Each 0 09/20/2023 09/20/2023 Discontinued (Course of therapy completed)LORazepam 0.5 mg oral tablet (17 sources)BenzodiazepineStart: 10-24-2023 End: 69-92-9586RHTcvxklm (Ativan) 0.5 MG tablet PLEASE SEE ATTACHED FOR DETAILED DIRECTIONS 10/24/2023 Activemetoclopramide 5 mg oral tablet (3 sources)Dopamine-2 Receptor AntagonistStart: 47-79-2101Ivvyisoklidqcj Hcl (Reglan) 5 mg Tablet Active MG TABLET April 06, 2023 1:00amnitrofurantoin, macrocrystals 25 mg / nitrofurantoin, monohydrate 75 mg oral capsule (3 sources)Nitrofuran AntibacterialStart: 12-15-2023 End: 11-08-8444tqcr 1 capsule by mouth twice dailynitrofurantoin monohydrate and macrocrystal (MACROBID) 100 mg capsule Take 1 capsule by mouth two times a day for 5 days. 10 capsule 0 12/21/2023 12/26/2023 Activenortriptyline 10 mg oral capsule (20 sources)Tricyclic AntidepressantStart: 21-38-6069bblg 1 dose by mouth once20 mg, Oral, ONCE, 1 dose, On Tue05/23/24 at 1145Start: 11-07-2023 End: 76-79-8915lhyg 2 capsules by mouth in the morningnortriptyline (Pamelor) 10 MG capsule Take 20 mg by mouth in the morning and 20 mg in the evening. 0 11/07/2023 ActiveStart: 09-27-2023 End: 49-81-4090sdsp 2 capsules by mouth once daily at bedtimenortriptyline (PAMELOR) 10 mg capsule Take 2 capsules by mouth daily at bedtime. 0 09/27/2023 11/07/2023 Discontinuedocrelizumab (OCREVUS INTRAVENOUS) (20 sources)ocrelizumab (OCREVUS INTRAVENOUS) Inject intravenously. Active ocrelizumab (OCREVUS INTRAVENOUS) Inject intravenously. 0 ActiveOCRELIZUMAB IV (9 sources)OCRELIZUMAB IV Infuse into a venous catheter Activeondansetron 4 mg disintegrating oral tablet (19 sources)Serotonin-3 Receptor AntagonistStart: 20-87-4627rros 1 tablet by mouth three times daily as needed for nauseaondansetron (ZOFRAN-ODT) 4 MG disintegrating tablet Take 1 tablet by mouth 3 times daily as needed for Nausea or Vomiting 15 tablet 04/05/2024 ActiveStart: 04-05-2024 End: mg, IntraVENous, ONCE, 1 dose, On Mar 04/05/24 at 1230Start: 23-74-2314dvie 4 mg by mouth every eight hours as needed4 mg, Oral, EVERY 8 HOURS PRN, Starting on Mar 04/05/24 at 1037, Until Discontinued, Nausea, Vomitin gStart: 06-28-2021 End: 49-27-4452aobo 4 mg by mouth every eight hoursOndansetron Hcl Discontinued 4 MG PO Q8H 9 3 June 28, 2021 1:00am April 06, 2023 5:10pmStart: 04-04-2020 End: 87-43-0558jwup 4 mg by mouth once dailyOndansetron Discontinued 4 MG PO Daily 7 4 April 04, 2020 1:00am September 27, 2020 10:04amStart: 01-21-2018 End: 32-61-3962mbjc 1 tablet by mouth every eight hoursOndansetron (Zofran Odt) 4 mg tablet,disintegrating Discontinued 4 MG PO Q8H January 21, 2018 12:00am May 18, 2018 7:47pmpregabalin 200 mg oral capsule (20 sources)Start: 10-24-2024 End: 43-01-8073kknh 1 capsule by mouth twice dailypregablin (LYRICA) 200 mg capsule Indications: Multiple sclerosis (HCC) , Neuropathic pain Take 1 capsule by mouth two times a day for 180 days. 60 capsule 5 01/22/2025 07/21/2025 Active Start: 04-23-2024 End: 43-22-5796vgen 1 capsule by mouth twice dailyPregabalin (LYRICA) 200 mg capsule Indications: Multiple sclerosis (HCC) , Neuropathic pain Take 1 capsule by mouth two times a day for 90 days. 60 capsule 2 07/24/2024 10/22/2024 DiscontinuedStart: 10-28-2023 End: 78-11-8970uxkbtnnpih (LYRICA) 50 mg capsule Indications: Multiple sclerosis (HCC) Please take 150 mg (3 capsules) in the morning, 100 mg (2 capsules) in the afternoon, and 150 mg (3 capsules) at bedtime. 240 capsule 5 04/18/2024 10/09/2024 ActiveStart: 10-28-2023 End: 06-47-2172xmjsuliifj (Lyrica) 50 MG capsule 50 mg 150 in the morning, 100 in the afternoon and 150 at night 10/28/2023 04/19/2024 ActiveStart: 09-27-2023 End: 25-78-2813mtop 1 capsule by mouth twice dailypregabalin (LYRICA) 150 mg capsule Indications: Transverse myelitis (HCC) Take 1 capsule by mouth twice daily for 90 days. 60 capsule 2 09/27/2023 10/28/2023 Discontinued (Course of therapy completed)Start: 09-23-2023 End: 76-55-0355qbhiqctdux (Lyrica) 100 MG capsule 09/23/2023 ActivePrenatal Cmjabcju-Hgb-Cx-Fa (3 sources)Start: 59-64-0882nmgg 1 tablet by mouth oncePrenatal Erxwajzh-Hjc-Fs-Fa Active TAB PO April 06, 2023 1:00amtriamcinolone acetonide 10 mg/ml injectable suspension (18 sources)CorticosteroidStart: 05-04-2024 End: 77-29-5200rduoeksazwjew acetonide 10 mg injection (KeNALog 10)Start: 05-04-2024 End: 29-67-009875 mg, INTRALESIONAL, EVERY 4 WEEKS, 4 doses, First dose on Tue05/04/24 at 1100, Last dose on Tue07/27/24 at 1100, 10 mg/mL for up to 1-2 mLs for hidradenitis suppurativavalACYclovir 1000 mg oral tablet (2 sources)Herpesvirus Nucleoside Analog DNA Polymerase Inhibitor, Herpes Simplex Virus Nucleoside Analog DNA Polymerase Inhibitor, Herpes Zoster Virus Nucleoside Analog DNA Polymerase InhibitorStart: 03-13-2025 End: 35-45-5400ucui 1 tablet by mouth in the morningvalACYclovir (Valtrex) 1 g tablet Indications: Cold sore Take 1 tablet (1,000 mg) by mouth in the morning and 1 tablet (1,000 mg) before bedtime. Do all this for 10 days. 20 tablet 03/13/2025 03/23/2025 Active Completed/Discontinued Medications MedicationDrug Class(es)DatesSig (Normalized)Sig (Original)acetaminophen 500 mg oral tablet (6 sources)Start: 06-19-2024 End: 99-65-6489sjbr 1 dose by mouth once, then take 4000 mg by mouth once daily 1,000 mg, ORAL, ONCE, 1 dose, On Tue06/19/24 at 0800, No more than 4000 mg of acetaminophen should be given per day (FROM ALL SOURCES)Start: 12-20-2023 End: 08-95-9271pocludnskfzaj 1,000 mg tab(s) (TYLENOL)Start: 12-06-2023 End: 49-21-5412rnkfzokduqpdr 1,000 mg tab(s) (TYLENOL)Start: 44-80-9629hqah 1000 mg by mouth every six hoursAcetaminophen Active 1000 MG PO Q6H April 07, 2023 1:00amacetaminophen 325 mg / HYDROcodone bitartrate 5 mg oral tablet (10 sources)Opioid AgonistStart: 02-12-2017 End: 25-41-4914xwyh 1 tablet by mouth every six hoursHydrocodone-Acetaminophen (Axis) 5-325 mg tablet Discontinued 1 TAB PO Q6H January 21, 2018 D ec2017 7:47pmcefTRIAXone (ROCEPHIN) 1,000 mg in sterile water 2.86 mL IM Injection (1 source)Start: 04-05-2024 End: 41,000 mg, IntraMUSCular, ONCE, 1 dose, On Mar 04/05/24 at 1200, Antimicrobial Indications: Urinary Tract Infection, 1 g vial - Add 2.1 mL of sterile water to make a concentration of 350 mg/mL. 500 mgvial - Add 1 mL of sterile water to make a concentration of 350 mg/mL.cholecalciferol 0.025 mg oral tablet (15 sources)Vitamin DStart: 09-27-2023 End: 75-89-1986twir 1 tablet by mouth once dailycholecalciferol (VITAMIN D3) 1,000 unit tab tablet 1 tablet by ORAL/FEEDING TUBE route once daily. 30 tablet 11 09/27/2023 10/28/2023 DiscontinuedcloNIDine hydrochloride 0.3 mg oral tablet (5 sources)Central alpha-2 Adrenergic AgonistStart: 02-06-2017 End: 27-49-6740aswq 0.3 mg by mouth once dailyClonidine Hcl Discontinued 0.3 MG PO Daily February 06, 2017 12:00am January 21, 2018 12:46pmdiazePAM 2 mg oral tablet (1 source)BenzodiazepineStart: 09-05-2023 End: 80-06-8917maebrWBH (Valium) 2 MG tablet Indications: Claustrophobia (CMS/HCC) Take 1 tablet (2 mg) by mouth 1(one) time in imaging for 1 dose 1 tab one hour prior to MRI and may repeat one time, must have class c driver 2 tablet 09/05/2023 01/09/2024 Discontinueddicyclomine hydrochloride 20 mg oral tablet (5 sources)AnticholinergicStart: 11-09-2018 End: 23-45-6146zuen 20 mg by mouth three times dailyDicyclomine Discontinued 20 MG PO Three times daily November 09, 2018 12:00am November 13, 2018 12:55am diphenhydrAMINE hydrochloride 25 mg oral capsule (5 sources)Histamine-1 Receptor AntagonistStart: 06-19-2024 End: 49-76-3035eszb 1 dose by mouth once50 mg, ORAL, ONCE, 1 dose, On Tue06/19/24 at 0800Start: 06-19-2024 End: 24-17-089004 mg, INTRAVENOUS, NEEDED, 1 dose, Starting on Tue06/19/24 at 0749, Until Tue06/19/24 at 0920, Administer per hypersensitivity/anaphylaxis grading in nursing communicationStart: 12-20-2023 End: 97-31-7708nibpmclrcwTINOJ 50 mg capsule (BENADRYL)Start: 12-06-2023 End: 01-71-0922ggnhjjssuoPIUMK 50 mg capsule (BENADRYL)Start: 12-06-2023 End: 46-30-6064dqzrpzmqjpIUBHW 50 mg injection (BENADRYL)doxycycline hyclate 100 mg oral capsule (5 sources)Tetracycline-class DrugStart: 03-19-2021 End: 54-36-1177lxok 100 mg by mouth twice dailyDoxycycline Hyclate Discontinued 100 MG PO Twice daily 14 March 19, 2021 12:00am June 28, 2021 1:44pm enteric contrast (will be provided with radiology test) (1 source)Start: 09-20-2023 End: 34-47-6174uurjfqv contrast (will be provided with radiology test) For CT CHESTABD/PEL W IVCON Routine order Administer, As Directed One Time Only, via Oral, Rectal, both Oral and Rectal, Enteric Tube, Stoma orIndwelling Catheter, Enteric Contrast as designated per enteric contrast guidelines 1 Each 0 2 024 09/20/2023 Discontinued (Course of therapy completed)escitalopram 20 mg oral tablet (10 sources)Serotonin Reuptake InhibitorStart: 01-30-2021 End: 88-36-6413gshz 20 mg by mouth once dailyEscitalopram Oxalate Discontinued 20 MG PO Daily January 30, 2021 12:00am March 19, 2021 2:13pmStart: 04-03-2020 End: 83-14-3655tkdm 2 tablets by mouth once dailyEscitalopram Oxalate (Lexapro) 10 mg Tablet Discontinued 20 MG PO Daily April 03, 2020 1:00am January 30, 2021 5:49pmethinyl estradiol 0.035 mg / norethindrone 1 mg oral tablet (5 sources)EstrogenStart: 01-21-2018 End: 54-56-1532Nszcdmluokuqy-Ethin Estradiol (Ortho-Novum) 1-35 mg-mcg tablet Discontinued 1 TAB PO Daily January 21, 2018 12:00am May 18, 2018 7:47pm Take 3 pills today, 2 tomorrow, then 1 each day until a week after the bleeding stops. Stop then for 5 days before starting a new pack of pills. fluconazole 150 mg oral tablet (1 source)Azole AntifungalStart: 04-05-2024 End: 50-94-9343wfcw 1 dose by mouth yswy227 mg, Oral, ONCE, 1 dose, On Mar 04/05/24 at 1200gabapentin 100 mg oral capsule (2 sources)Anti-epileptic AgentStart: 10-17-2022 End: 18-76-9124shrp 3 capsules by mouth in the morning, then take 3 capsules by mouth in the evening, then take 3 capsules by mouth at bedtimegabapentin (Neurontin) 100 MG capsule Take 300 mg by mouth in the morning and 300 mg in the eveningand 300 mg before bedtime. 08/31/2023 01/09/2024 DiscontinuedglipiZIDE 2.5 mg / metFORMIN hydrochloride 250 mg oral tablet (2 sources)Biguanide, Sulfonylurea End: 98-64-3130ljdp 1 tablet by mouth twice daily before mealtimeglipiZIDE- metFORMIN (METAGLIP) 2.5-250 mg per tablet Take 1 tablet by mouth twice daily before meals. 0 09/20/2023 Discontinuedhydrocortisone 100 mg injection (2 sources)CorticosteroidStart: 06-19-2024 End: 99-11-5565894 mg, INTRAVENOUS, NEEDED, 1 dose, Starting on Tue06/19/24 at 0749, Until Tue06/19/24 at 0920,Administer per hypersensitivity/anaphylaxis grading in nursing communicationStart: 12-06-2023 End: 48-97-1198wqmiuqarbnheyu sodium succinate (PF) 100 mg injection (Solu-CORTEF)lisdexamfetamine dimesylate 20 mg oral capsule (20 sources)Central Nervous System StimulantStart: 01-12-2024 End: 55-66-4727Qeuwwlm 20 MG capsule 01/12/2024 02/06/2024 Discontinued (Other) Start: 14-90-6012egyl 1 capsule by mouth in the morningVyvanse 30 MG capsule Take 1 capsule by mouth in the morning. 08/12/2023 Activemeclofenamate 100 mg oral capsule (10 sources)Start: 05-18-2018 End: 51-73-5585szdy 100 mg by mouth four times dailyMeclofenamate Discontinued 100 MG PO Four times daily May 18, 2018 1:00am September 22, 2018 10:02am Start: 01-21-2018 End: 52-36-7109zhzh 100 mg by mouth three times dailyMeclofenamate Discontinued 100 MG PO Three times daily January 21, 2018 3:41pm April 7:47pmmedroxyPROGESTERone acetate 10 mg oral tablet (5 sources)ProgestinStart: 02-06-2017 End: 60-64-4316waet 1 tablet by mouth once dailyMedroxyprogesterone (Provera) 10 mg tablet Discontinued 10 MG PO Daily 10 February 06, 2017 12:00am February 16, 2017 12:04ammefenamic acid 250 mg oral capsule (5 sources)Nonsteroidal Anti-inflammatory DrugStart: 02-06-2017 End: 54-92-4374pedh 250 mg by mouth every six hours at mealtimeMefenamic Acid Discontinued 250 MG PO Q6H 28 February 06, 2017 11:08pm February 13, 2017 12:02am administer with food or milkmetFORMIN hydrochloride 500 mg oral tablet (5 sources)BiguanideStart: 02-06-2017 End: 13-04-8370uwne 500 mg by mouth once dailyMetformin Discontinued 500 MG PO Daily February 06, 2017 12:00am May 18, 2018 7:47pmmethocarbamol 500 mg oral tablet (2 sources)Muscle RelaxantStart: 09-08-2023 End: 04-60-7082plsmkhmhdudwh (Robaxin) 500 MG tablet Indications: Muscle spasm 1/2-1 tablet daily 30 tablet 09/08/2023 01/09/2024 DiscontinuedStart: 09-08-2023 take 1 tablet by mouth twice dailymethocarbamol (ROBAXIN) 500 mg tablet Take 1 tablet by mouth two times a day. 0 09/08/2023 SuspendedmethylPREDNISolone 125 mg injection (8 sources)CorticosteroidStart: 06-19-2024 End: 60-46-5533620 mg, INTRAVENOUS, ONCE, 1 dose, On Tue06/19/24 at 0800Start: 12-20-2023 End: 35-19-8544bebirmDEFCBRRnbmqd sod succinate(PF) 100 mg injection (SOLU-Medrol)Start: 12-06-2023 End: 92-77-0201vtqqkyOUGBAEYiqygz sod succinate(PF) 100 mg injection (SOLU-Medrol)Start: 10-09-2022 End: 24-98-3234rdif 1 tablet by mouth onceMethylprednisolone (Medrol (Bunny)) 4 mg tablets,dose pack Discontinued 0 PO .COMPLEX October 09, 2022 12:00am April 06, 2023 5:10pm orally per package directionsnaproxen 500 mg oral tablet (10 sources)Nonsteroidal Anti-inflammatory DrugStart: 06-28-2021 End: 07-90-3528tsnm 500 mg by mouth twice dailyNaproxen Discontinued 500 MG PO Twice daily June 28, 2021 1:00am April 06, 2023 5:10pmStart: 09-22-2018 End: 84-21-3196izyh 500 mg by mouth twice daily at mealtimeNaproxen Discontinued 500 MG PO Twice daily September 22, 2018 12:00am October 28, 2018 8:16pm administer with food or milk10 ml ocrelizumab 30 mg/ml injection (3 sources)Start: 06-19-2024 End: 56-61-8511919 mg, INTRAVENOUS, ONCE, 1 dose, On Tue06/19/24 at 0800, Subsequent infusion. Start infusion at 100 mL/hour for 15 minutes, then increase to 200 mL/hour for 15 minutes, then increase to 250 mL/hourfor 30 minutes, then increase to 300 mL/hour for remainder of infusion. Maximum rate = 300mL/hour. A PPROXIMATE TOTAL VOLUME: 560 mL For 300 mg doses, administer one 300 mg/250 mL bag. For 600 mg doses, administer two 300 mg/250 mL bags. Administer with 0.2 micron filter. Refrigerate.Start: 12-20-2023 End: 31-92-8451kiarcepvxer (OCREVUS) in NaCl 0.9% Vial-Bag 300 mg 250 mLStart: 12-06-2023 End: 42-05-3046trxlyddrtbn (OCREVUS) in NaCl 0.9% Vial-Mate 300 mg 250 mL risperiDONE 1 mg oral tablet (7 sources)Atypical AntipsychoticStart: 02-06-2017 End: 98-68-4985nrha 1 tablet by mouth once dailyRisperidone (Risperdal) 1 mg Tablet Discontinued 1 MG PO Daily February 06, 2017 12:00am January 21, 2018 12:46pm End: 04-46-9161fcac 1 tablet by mouth once daily at bedtimerisperiDONE (RISPERDAL) 0.25 mg tablet Take 0.25 mg by mouth daily at bedtime. 0 09/20/2023 DiscontinuedtraZODone hydrochloride 100 mg oral tablet (2 sources)Serotonin Reuptake Inhibitor End: 78-19-3936camr 1 tablet by mouth once daily at bedtimetraZODone (DESYREL) 100 mg tablet Take 100 mg by mouth daily at bedtime. 0 09/20/2023 Discontinued Problems Active Problems Problem ClassificationProblemDateDocumented DateEpisodic/ChronicAbdominal pain (6 sources)Generalized abdominal pain; Translations: [Abdominal pain]Onset: 069328-14-3675PoxawgrcDclglfk disorders (2 sources)Anxiety; Translations: [Anxiety disorder, unspecified]10-24-2023 ChronicAttention-deficit, conduct, and disruptive behavior disorders (1 source)Attention-deficit hyperactivity disorder, unspecified type; Translations: [ADHD UNSPECIFIED TYPE]Onset: 09-22-1421DjbsypiActusljnh-deficit, conduct, and disruptive behavior disorders (20 sources)Attention deficit hyperactivity disorder; Translations: [Attention- deficit hyperactivity disorder, unspecified type]Onset: 886999-11-1167 ChronicChronic obstructive pulmonary disease and bronchiectasis (5 sources)Bronchitis; Translations: [Bronchitis, not specified as acute or chronic]57-14-2424HdppgmyvJzyznjwallemv and procreative management (2 sources)Sterilization requested; Translations: [Encounter for sterilization] 58-66-5724RkmmsroqHulvdhacwaktl disorders (9 sources)Stuttering; Translations: [Childhood onset fluency disorder]Onset: 164550-21-4460WledqewYueuoydi mellitus without complication (20 sources)Diabetes mellitus type 2 without retinopathy; Translations: [Type 2 diabetes mellitus without complications]Onset: 502880-77-2356Izjncsa Encephalitis (except that caused by tuberculosis or sexually transmitted disease) (1 source)Myelitis; Translations: [Myelitis, unspecified]39-84-3178Kjjhdeke Essential hypertension (2 sources)Essential (primary) hypertension; Translations: [Essential (primary) hypertension]Onset: 96-76-9142NmzsjkaPtfftxpvttwln symptoms and ill-defined conditions (3 sources)Delay when starting to pass urine; Translations: [Hesitancy of micturition]54-94-2443VdwumhkaCwqgqojp; including migraine (9 sources)Tension-type headache; Translations: [Tension-type headache, unspecified, not intractable]Onset: 607355-68-6325RafwfoeNetwrwrc; including migraine (1 source)Headache; including migraine; Translations: [HEADACHE UNSPECIFIED] Onset: 27-92-1115Qffigwspkxjcl and screening for infectious disease (5 sources)At risk of sexually transmitted infection ; Translations: [Contact with and (suspected) exposure toinfections with a predominantly sexual mode of transmission]08-43-7288LlhgywxiOdluugs and fatigue (1 source)Weakness; Translations: [Weakness]Onset: 50-59-7949ExbgyediWusvwsjhy disorders (7 sources)Dysmenorrhea; Translations: [Dysmenorrhea, unspecified]02-12-2017 ChronicMood disorders (1 source)Depressive disorder; Translations: [Depression, unspecified depression type]12-29-8703LlubmvfJgccpjgv sclerosis (20 sources)Multiple sclerosis; Translations: [Multiple sclerosis]Onset: 081742-82-0329PrntlxiVlwbiw and vomiting (7 sources)Nausea and vomiting; Translations: [Nausea with vomiting, unspecified]Onset: 435984-00-4703DuwgnszwQmarqvocymi deficiencies (9 sources)Vitamin D deficiency; Translations: [Vitamin D deficiency, unspecified]Onset: 268489-40-7659UualbomMwvzm aftercare (2 sources)Other detention (current) drug therapy; Translations: [OTH FRONT END TECHNICIAN CURRENT DRUG THERAPY]Onset: 64-04-7657SzjujszrQhvtu aftercare (1 source)Long-term current use of drug therapy; Translations: [Other detention (current) drug therapy]70-84-0862YspzcbaiXjplh bone disease and musculoskeletal deformities (1 source)Mass of musculoskeletal structure; Translations: [Other specified disorders of bone, other site]68-54-9847StdkmbzgPgrpr connective tissue disease (20 sources)Neuropathic pain; Translations: [Neuralgia and neuritis, unspecified]Onset: 082976-97-0079HhotxvnyQrhto connective tissue disease (1 source)Muscle weakness (generalized); Translations: [Muscle weakness (generalized)]Onset: 73-98-8102LosxgypoUymjl connective tissue disease (1 source)Other symptoms and signs involving the nervous system; Translations: [Other symptoms and signs involving the nervous system]Onset: 38-02-5159Ythqceue Other connective tissue disease (1 source)Spasticity; Translations: [Cramp and spasm]22-06-9446TftbavnyJniiy connective tissue disease (1 source)Cramp and spasm; Translations: [Spasticity]Onset: 87-67-5786Lvdugbxm Other eye disorders (20 sources)Bilateral vitreous floaters; Translations: [Other vitreous opacities, bilateral]Onset: 873072-02-5263AzooadkZccos eye disorders (1 source)Disorder of visual pathways; Translations: [Other disorders of optic nerve, not elsewhere classified, unspecified eye]82-52-1288GkfxgzmQgsoe female genital disorders (1 source)Abnormal uterine and vaginal bleeding, unspecified; Translations: [Abnormal uterine and vaginal bleeding, unspecified]Onset: 96-74-6977Gegyucv Other female genital disorders (5 sources)Abnormal uterine bleeding; Translations: [Other specified abnormal uterine and vaginal bleeding]07-05-3217PpbugtqUlhgu gastrointestinal disorders (1 source)Diarrhea; Translations: [Diarrhea, unspecified]32-70-3010BgqwxsviPlknx gastrointestinal disorders (1 source)Diarrhea, unspecified; Translations: [Diarrhea, unspecified]Onset: 27-28-5111NzqgupiaFgqgz nervous system disorders (2 sources)Spinal cord disease; Translations: [Disease of spinal cord, unspecified]73-81-6716HndrqzkYxkdj nervous system disorders (3 sources)Disease of spinal cord, unspecified; Translations: [Unspecified disease of spinal cord]00-79-3193IidasfdGuomw nervous system disorders (5 sources)Demyelinating disease of central nervous system; Translations: [Demyelinating disease of central nervous system, unspecified]91-45-2765Nmvdfrm Other nervous system disorders (1 source)Demyelinating disease of central nervous system, unspecified; Translations: [Demyelinating disease of central nervous system (HCC)]Onset: 55-05-2159AuvwkrjDwbug nervous system disorders (1 source)Chronic pain; Translations: [Other chronic pain]26-78-8782SsxndjmCvsbx nervous system disorders (5 sources)Numbness and tingling sensation of skin; Translations: [Anesthesia of skin]03-08-1983SklvppksXpqhs nervous system disorders (4 sources)Anesthesia of skin; Translations: [ANESTHESIA OF SKIN]Onset: 78-27-6944AwrfapyuDtaxq nervous system disorders (5 sources)Paresthesia of skin; Translations: [PARESTHESIA OF SKIN]Onset: 56-75-3240IwxpnbawCvdvn nervous system disorders (1 source)Noble's reflex positive; Translations: [Abnormal reflex]10-25-2023 EpisodicOther nervous system disorders (1 source)Other lack of coordination; Translations: [Other lack of coordination] Onset: 60-49-5113OltoiqwhAijen nervous system disorders (1 source)Unsteadiness on feet; Translations: [Unsteadiness on feet]Onset: 10-39-6895IttuokfgDozif nervous system disorders (1 source)Paralytic gait; Translations: [Paralytic gait]Onset: 10-21-2023 EpisodicOther nervous system disorders (1 source)Ataxia; Translations: [Ataxia, unspecified]37-40-6419KiwnlgrgXvmib nervous system disorders (1 source)Ataxia, unspecified; Translations: [Ataxia]Onset: 16-22-3014Miyjdgrl Other nutritional; endocrine; and metabolic disorders (20 sources)Obese class II; Translations: [Obesity, unspecified]Onset: 417920-77-5347RfyiwauBvryv screening for suspected conditions (not mental disorders or infectious disease) (3 sources)Abnormal findings on diagnostic imaging of other parts of musculoskeletal system; Translations: [Patient encounter status]Onset: 429671-53-0326SvilawpxFoffu skin disorders (1 source)Hidradenitis suppurativa; Translations: [Hidradenitis suppurativa] 40-38-4175KwfktwytGhxmjwe cyst (5 sources)Cyst of ovary; Translations: [Unspecified ovarian cyst, unspecified side]20-93-2547VnfjmncfVzkakacie (1 source)Paraplegia; Translations: [Paraplegia, unspecified]79-68-4647Yhcqmnm Residual codes; unclassified (1 source)Pain, unspecified; Translations: [Pain, unspecified]Onset: 08-22-2023 EpisodicResidual codes; unclassified (1 source)Other general symptoms and signs; Translations: [Other general symptoms and signs]Onset: 06-07-3815SdkrhyxtTgxpljfnlzm; intervertebral disc disorders; other back problems (14 sources)Backache; Translations: [Dorsalgia, unspecified]Onset: 10-07-2022 75-69-0666XjfribgqVoqrltfrsbt (5 sources)Complete miscarriage; Translations: [Complete or unspecified spontaneous without complication]08-01-6589XhmvbdubAeealebqv-related disorders (20 sources)Nicotine dependence; Translations: [Nicotine dependence, unspecified, uncomplicated]Onset: 431228-96-1797ElfdrleRljdrxiscrzr (1 source)Unknown / UNK(Unknown)Onset: 41-13-8994Nrjpsknsfjyg (3 sources)LOW BACK PAIN, UNSPECIFIED; Translations: [LOW BACK PAIN, UNSPECIFIED]Onset: 45-97-4079Dpyhghcrtewe (9 sources)OB RemindersOnset: 379626-48-4001Rxjcqzg tract infections (12 sources)Urinary tract infectious disease; Translations: [Urinary tract infection, site not specified]Onset: 678520-46-1878ElwapzulJoxxb infection (2 sources)Herpes labialis; Translations: [Herpesviral vesicular dermatitis] 11-11-7834Mwrrnusu Past or Other Problems Problem ClassificationProblemDateDocumented DateEpisodic/Chronic Administrative/social admission (20 sources)Impaired mobility; Translations: [Other reduced mobility]Onset: 793902-26-8719YecrtogbIydkrcihy of teeth and jaw (2 sources)Periapical abscess without sinus; Translations: [Periapical abscess without sinus]Onset: 17-24-6848JzenikjnZzbkg or threatened labor (4 sources)Premature labor; Translations: [ labor with delivery, unspecified trimester, not applicable or unspecified]Onset: EpisodicOther injuries and conditions due to external causes (20 sources)At risk for falls ; Translations: [History of falling]Onset: 080902-08-2022WguphikmWvfph nervous system disorders (2 sources)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; 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]Onset: 70-38-8272LnisucesYvhjd nervous system disorders (20 sources)Transverse myelopathy syndrome; 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]Onset: 09-20-2023 60-06-1509XvmmtzufSassk nervous system disorders (9 sources)Paresthesia; Translations: [Paresthesia of skin]Onset: 09-15-2023 45-25-6074KiujqlwmLqvzk and delivery including normal (1 source)Encounter for supervision of normal , unspecified, third trimester; Translations: [Encounter for supervision of normal , unspecified, third trimester]Onset: 57-15-2924PjgeqmjfPqsdswlw codes; unclassified (20 sources)Finding of activity of daily living; Translations: [Other general symptoms and signs]Onset: 100247-29-7633AbqpxfjrMorbvlb (20 sources)Vasovagal syncope; Translations: [Syncope and collapse]Onset: 09-23-2023 Resolved: 037559-02-6914CniaafdyResniexrnzhs (1 source)LOW BACK PAIN, UNSPECIFIED; Translations: [LOW BACK PAIN, UNSPECIFIED] Onset: 84-00-5348Cmilpdrcndnm (3 sources)Long-term current use of drug -84-2741 Results Test NameValueInterpretationReference RangeFacilityMRI BRAIN WO/W IVCONon 07-29-5580BPB BRAIN WO/W IVCON* * *Final Report* * * DATE OF EXAM: Mar 23 2025 5:13PM Q 0295 - MRI BRAIN WO/W IVCON / [...] Improvement: None. New Enhancing Lesions: None T2 [place] of Disease: Mild. Parenchymal Volume Loss: None. Other Significant Findings: None. MR CERVICAL: Counting reference: Craniocervical junction. Anatomic Variants: None. Alignment: Alignment is anatomic. Craniocervical Junction: Craniocervical junction is normal. Cord Findings: Central T2 hyperintense cord signal at the level of C3-C4 and at C5-C6 redemonstrated not significantly changed. Cord T2 [place]: Mild New T2 Lesions: None Interval Cord [...] by greater than or equal to 2mm). IMPRESSION: There is 1 single focus of [...] spinal cord at C4-C5. Cervical Anatomic Variant: None. Assume 7 cervical vertebrae with counting from the craniocervical junction. Second Rigger: PSCB Transcribe Date/Time: Mar 23 2025 8:40P Dictated by : GERARDO HUMMEL MD This examination was interpreted and the report reviewed and electronically signed by: GERARDO HUMMEL MD on Mar 23 2025 8:52PM EST [id number]. John of God Hospital CERVICAL SPINE WO/W IVCONon 26-27-8999UMT CERVICAL SPINE WO/W IVCON* * *Final Report* * * DATE OF EXAM: Mar 23 2025 5:13PM QBM 0298 - MRI CERVICAL SPINE WO/W IVCON [...] Improvement: None. New Enhancing Lesions: None T2 [place] of Disease: Mild. Parenchymal Volume Loss: None. Other Significant Findings: None. MR CERVICAL: Counting reference: Craniocervical junction. Anatomic Variants: None. Alignment: Alignment is anatomic. Craniocervical Junction: Craniocervical junction is normal. Cord Findings: Central T2 hyperintense cord signal at the level of C3-C4 and at C5-C6 redemonstrated not significantly changed. Cord T2 [place]: Mild New T2 Lesions: None Interval Cord [...] by greater than or equal to 2mm). IMPRESSION: There is 1 single focus of [...] spinal cord at C4-C5. Cervical Anatomic Variant: None. Assume 7 cervical vertebrae with counting from the craniocervical junction. Second Rigger: STEPHEN Transcribe Date/Time: Mar 23 2025 8:40P Dictated by : GERARDO HUMMEL MD This examination was interpreted and the report reviewed and electronically signed by: GERARDO HUMMEL MD on Mar 23 2025 8:52PM EST [id number]. John of God Hospital THORACIC SPINE WO/W IVCONon 75-30-7187GMH THORACIC SPINE WO/W IVCON* * *Final Report* * * DATE OF EXAM: Mar 23 2025 5:13PM [facility] - MRI THORACIC SPINE WO/W [...] The thoracic canal and foramina are patent. IMPRESSION: Mild interval improvement of previously seen demyelinating lesions in this thoracic cord. No new lesion or abnormal enhancement Anatomic Thoracic/Lumbar Variant: Assume the first normal thoracic rib is at the T1 level. 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 Last q6 month tx 12/26/2024 (cycle 3) Most recent MRI brain: 10/27/2023 (stable vs. 09/07/2023: 2 PV lesions) Most recent MRI cervical spine: - 10/25/2023 (non GdE C5/6 lesion, new vs. 08/22/2023) [...] serology result and date: None OCT: 09/20/2023 Serum: - 2023: AQP4 Ab negative, copper wnl, vitamin B6 wnl, vitamin E wnl, vitamin B12/MMA wnl, syphilis negaitve, HIV negative, Lyme negative, HTLV negative, CRP wnl, CDS1 negative Systemic imaging: - PET whole body 09/22/2023: few likely reactive hypermetabolic cervical LN but otherwise unremarkable CHIEF COMPLAINT: Follow-up on MS disease modifying therapy INTERVAL HISTORY Usual treating team: Amie/Tiago -> Amie/Angeline The patient is accompanied by spouse and toddler son. The patient was last seen 03/14/2024 by virtual visit, currently taking Ocrevus. Since the patient's last visit the patient reports overall feeling worse. Issues with current MS therapy: Tolerating medication without side effects. Since infusion 12/26/2024, developed acute pain left side of back. Return of squeezing hug feeling. Was previously entire chest, now mostly left side. Describes as muscle spasm, knot of tension that is pulling. Worse with reaching. Walking more difficult. She is very active, has a lot of pain at the end of the day. Feels like bottom of her spine is disconnecting from her tailbone. Relatively severe low back pain that is worse with weightbearing. Has been relying on her wheelchair less. Still needs this on longer days or after a lot of activity. Continued leg weakness and pain. If she is overheated, has more pain and fatigue. Relying on w/c less. Still needs this on longer days or after a lot of activity. Still has leg weakness and pain. Once she is overheated, has more pain and fatigue. Has episodes of severe cognitive fog when overheated. Occurs when bearing down, overheats at times with bearing down which triggers cognitive fog. Element of weakness with this, usually she cannot walk and needs her spouse to help her. Has fallen off the toilet when this happens. Occurs a few times per month. 6 times per month total, spouse thinks more. Similar feeling of cognitive fog and weakness when overheated. . Episodes last until she cools down, 5-10 min. Continues nortriptyline. Has significant side effects if she misses a dose. Continues 20 mg twice daily. Frequent UTIs until 2-3 months ago. Started using different femimine wash. Feels better using feminine wash. Was on ABX for awhile. Her symptoms of UTI include burning, pressure, and urgency, contacts [employer] [employer] [employer] when this occurs. Sometimes urine is test at other times she is just given antibiotics. On medication dispensation review, received prescription for ciprofloxacin x 7 days August and September 2024, then 30-day prescription which she keeps on hand that was given 09/2024. Has seen urology in the past for recurrent UTIs but recently canceled her appointment due to improved UTI frequency since changing feminine wash. Clindamycin for HS, no recent use. Uses hibicleanse. Intake room not completed as patient arrived late for appointment. SUBJECTIVE AND REVIEW OF SYSTEMS REVIEW OF SYSTEMS Refer to patient-entered data. Mood: Follows local psychiatry. Takes lorazepam 0.5mg PRN. Takes about twice weekly. Spasticity: Baclofen 10mg TID prescribed. Takes 10mg BID and 10mg PRN. Bladder: See HPI Bowel: Constipation, no incontinence. Pain related to today's visit:reviewed on nursing intake documentation See HPI Fatigue: See HPI Memory/Concentration: See HPI Neuro-Qol Functions (higher = better functioning) 03/14/2024 01/04/2024 -- Upper Extremity Domain T Score 33 33 Patient-reported 03/14/2024 01/04/2024 -- Lower Extrem (more content not included)...NormalTri[facility] on [id number] (NEMN) HANNACARRIE ([id number]) 2000 F Date Time Provider Department 12/31/24 MORIAH MARCUS During your visit today, we recorded the following information about you: Becky Negron PCNA 12/31/2024 11:40 AM Signed Perico Call Name of caller : Carrie Relationship to patient: Self Return call phone number : [phone] Reason for call : Symptoms : Brief description of symptoms : Severe back pain that spreads to left side of ribs, hurts to move left arm, severe pain when patient moves neck. When did symptoms start : 12/27 pt had infusion 12/26 Pepito Duarte, GERMÁN 12/31/2024 1:58 PM Signed I called patient. She has had Lhdavidittes sign since the beginning and this is not new, it is just much worse and not going away as fast . I offered her a next day appt and she wants to wait to see Moriah on 12/31, in-person at 1445. Provider aware of upcoming appt Imelda Miller 01/04/2025 1:32 PM Signed Please contact patient to schedule a virtual visit with Rae Ritter in 1 month and to move her June infusion and appointment to the same day vm was left Allergies As of Date: 12/31/2024 Noted Allergy Reaction COCONUT 01/25/2024 9 - Itching Date Reviewed: 12/26/2024 Reviewed by: Keeley Strickland, GERMÁN - Fully Assessed Reason for Visit: Appointment [186] Cmt: Please contact patient to schedule a virtual visit with Rae Ritter in 1 month and to move her June infusion and appointment to the same day vm was left Prescriptions as of 01/04/2025 - LORazepam (ATIVAN) 0.5 mg Take 0.5 mg by mouth once daily as needed. - iv contrast (will be provided with [...] the MR contrast administration guidelines link - iv contrast (will be provided with [...] the MR contrast administration guidelines link. - nortriptyline (PAMELOR) 10 mg capsule Take 2 capsules by mouth two times a day. - pregablin (LYRICA) 200 mg capsule Take 1 capsule by mouth two times a day for 90 days. - baclofen 10 mg tablet Take 1 tablet by mouth three times a day. - Clindamycin Phosphate (CLEOCIN T) 1 % lotion Apply twice daily as needed for flares - ocrelizumab (OCREVUS INTRAVENOUS) Inject intravenously. - VYVANSE 30 mg capsule Take 1 capsule by mouth once daily. - gabapentin (NEURONTIN) 100 mg capsule (Discontinued) Take 300 mg by mouth three times a day. 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] 09/20/2023 Nicotine use disorder, F17.2 [F17.200] 09/21/2023 Obesity, Class II, BMI 35-39.9 [E66.812] 09/23/2023 ADHD [F90.9] 09/23/2023 Neuropathic pain [M79.2] 09/23/2023 Vasovagal episode [R55] 09/23/2023 09/26/2023 Alteration in self-care ability [R68.89] 09/23/2023 Impaired mobility [Z74.09] 09/23/2023 At risk for falls [Z91.81] 09/23/2023 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] 10/28/2023 Encounter Status:Closed by IMELDA MILLER on 01/04/25NormalCOhio[facility] W Auto Differential panel (Bld)on 87-09-3002Kygbqooob (Bld) [#/Vol] 0.04 10*3/uLNormal<0.11CC[facility] on above:Order Comment: Specimen Type: BLOOD SPECIMENOrdering Facility: [facility] Address:[address] [place], [place] [address]Performed By: #### 15330-3 ####[facility] LABCLIA [id number] [place] [address] [place] AMERICABasophils/100 WBC (Bld)0.5 % NormalEast [facility] City Hospital on above:Order Comment: Specimen Type: BLOOD SPECIMENOrdering Facility: [facility] Address:[address] [place], [place] [address]Performed By: #### 38257-4 ####[facility] LABCLIA [id number] [place] [address] [place] AMERICADifferential cell count method Nom (Bld)AutoNormalCCleveland Clinic [facility] on above:Order Comment: Specimen Type: BLOOD SPECIMENOrdering Facility: [facility] Address:[address] [place], [place] [address]Performed By: #### 45328-5 ####[facility] LABCLIA [id number] [place] [address] [place] AMERICAEosinophils (Bld) [#/Vol]0.15 10*3/uLNormal<0.46[facility] on above:Order Comment: Specimen Type: BLOOD SPECIMENOrdering Facility: [facility] Address:[address] [place], [place] [address]Performed By: #### 83551-3 ####[facility] LABIA [id number] [place] [address] [place] Eosinophils/100 WBC (Bld)2.0 %NormalEast Liverpool City Hospital on above: Order Comment: Specimen Type: BLOOD SPECIMENOrdering Facility: [facility] Address:[address] [place], [place] [address]Performed By: #### 95629- 8 ####[facility] LABIA [id number] [place] [address] [place] AMERICAErythrocyte distribution width (RBC) [Ratio]14.7 %Xbfqcb61.5-15.0[facility] on above: Order Comment: Specimen Type: BLOOD SPECIMENOrdering Facility: [facility] Address:[address] [place], [place] [address]Performed By: #### 73822- 8 ####[facility] LABIA [id number] [place] [address] [place] AMERICAHematocrit (Bld) [Volume fraction]37.1 %Uiatph38.0-46.0[facility] on above:Order Comment: Specimen Type: BLOOD SPECIMENOrdering Facility: [facility] Address:[address] [place], [place] [address]Performed By: #### 17704- 8 ####[facility] LABIA [id number] [place] [address] [place] AMERICAHemoglobin (Bld) [Mass/Vol]11.9 g/ySIbpczn84.5-15.5CC[facility] on above:Order Comment: Specimen Type: BLOOD SPECIMENOrdering Facility: [facility] Address:[address] [place], [place] [address]Performed By: #### 28054-8 ####[facility] LABCLIA [id number] [address] [place] [address] [place] AMERICAImmature granulocytes (Bld) [#/Vol]10*3/uLNormal<0.10[facility] on above:Order Comment: Specimen Type: BLOOD SPECIMENOrdering Facility: [facility] Address:[address] [place], [place] [address]Performed By: #### 37041- 8 ####[facility] LABCLIA [id number] [address] [place] [address] [place] AMERICAImmature granulocytes/100 WBC (Bld)0.3 %NormalEast [facility] City Hospital on above:Order Comment: Specimen Type: BLOOD SPECIMENOrdering Facility: [facility] Address:[address] [place], [place] [address]Performed By: #### 88865-5 ####[facility] LABIA [id number] [address], [facility]95 [place] AMERICALymphocytes (Bld) [#/Vol]1.78 10*3/uLNormal1.00-4.00[facility] on above:Order Comment: Specimen Type: BLOOD SPECIMENOrdering Facility: [facility] Address:[address] [place], [place] [address]Performed By: #### 22952-6 ####[facility] LABCLIA [id number] [address] [place] [address] [place] AMERICALymphocytes/100 WBC (Bld)24.2 % NormalEast [facility] City Hospital on above:Order Comment: Specimen Type: BLOOD SPECIMENOrdering Facility: [facility] Address:[address] [place], [place] [address]Performed By: #### 34708-0 ####[facility] LABIA [id number] [address], [facility]95 [place] AMERICAMCH (RBC) [Entitic mass]26.8 kzKgjbay76.0-34.0[facility] on above:Order Comment: Specimen Type: BLOOD SPECIMENOrdering Facility: [facility] Address:[address] [place], [place] [address]Performed By: #### 88412-9 ####[facility] LABIA [id number] [place] [address] [place] MCHC (RBC) [Mass/Vol]32.1 g/mUXrjufr32.5-36.0[facility] on above:Order Comment: Specimen Type: BLOOD SPECIMENOrdering Facility: [facility] Address:[address] [place] [address] Performed By: #### 84043-1 ####[facility] LABIA [id number] [place] [address] [place] MCV (RBC) [Entitic vol]83.6 rTOhztys89.0-100.0[facility] on above:Order Comment: Specimen Type: BLOOD SPECIMENOrdering Facility: [facility] Address:[address] [place] [address] Performed By: #### 40583-2 ####[facility] LABIA [id number] [place] [address] [place] Monocytes (Bld) [#/Vol]0.48 10*3/uLNormal<0.87[facility] on above:Order Comment: Specimen Type: BLOOD SPECIMENOrdering Facility: [facility] Address:[address] [place] [address] Performed By: #### 14375-7 ####[facility] LABIA [id number] [place] [address] [place] Monocytes/100 WBC (Bld)6.5 %NormalEast [facility] City Hospital on above: Order Comment: Specimen Type: BLOOD SPECIMENOrdering Facility: [facility] Address:[address] [place], [place] [address]Performed By: #### 48639- 8 ####[facility] LABCLIA [id number] [place] [address] [place] AMERICANeutrophils (Bld) [#/Vol]4.89 10*3/uLNormal1.45-7.50[facility] on above:Order Comment: Specimen Type: BLOOD SPECIMENOrdering Facility: [facility] Address:[address] [place], [place] [address]Performed By: #### 48773-9 ####[facility] LABCLIA [id number] [place] [address] [place] AMERICANeutrophils/100 WBC (Bld)66.5 % NormalSt. Charles HospitalComment on above:Order Comment: Specimen Type: BLOOD SPECIMENOrdering Facility: [facility] Address:[address] [place], [place] [address]Performed By: #### 71092-4 ####[facility] LABIA [id number] [place] [address] [place] AMERICANucleated RBC (Bld) [#/Vol]10*3/uLNormal<0.01[facility] on above:Order Comment: Specimen Type: BLOOD SPECIMENOrdering Facility: [facility] Address:[address] [place], [place] [address]Performed By: #### 74030-7 ####[facility] LABCLIA [id number] [place] [address] [place] Nucleated RBC/100 WBC (Bld) [Ratio]0.0 /100 WBCNormalCUniversity [facility] Comment on above:Order Comment: Specimen Type: BLOOD SPECIMENOrdering Facility: [facility] Address:[address] [place] [address] Performed By: #### 22812-5 ####[facility] LABCLIA [id number] [place] [address] [place] Platelet mean volume (Bld) [Entitic vol]11.0 fLNormal9.0-12.7CCleveland Clinic [facility] on above:Order Comment: Specimen Type: BLOOD SPECIMENOrdering Facility: [facility] Address:[address] [place], [place] [address]Performed By: #### 04087-7 ####[facility] LABIA [id number] [place] [address] [place] Platelets (Bld) [#/Vol]304 10*3/aMHwzsnz680-553QfousrdfvEast [facility] Hospital on above:Order Comment: Specimen Type: BLOOD SPECIMENOrdering Facility: [facility] Address:[address] [place] [address] Performed By: #### 79844-8 ####[facility] LABIA [id number] [place] [address] [place] RBC (Bld) [#/Vol]4.44 10*6/uLNormal3.90-5.20[facility] on above:Order Comment: Specimen Type: BLOOD SPECIMENOrdering Facility: [facility] Address:[address] [place], [place] [address]Performed By: #### 83838-5 ####[facility] LABIA [id number] [place] [address] [place] AMERICAWBC (Bld) [#/Vol]7.36 10*3/uLNormal3.70-11.00[facility] on above:Order Comment: Specimen Type: BLOOD SPECIMENOrdering Facility: [facility] Address:[address] [place], [place] [address]Performed By: #### 47197-0 ####[facility] LABIA [id number] [place] [address] [place] TCGUFLMPU38 ABSOLUTE COUNTon 12-26-2024 CD3-CD19+ cells (Bld) [#/Vol]13 cells/iTJqy74-424CkcfoolaeSt. Charles Hospital Comment on above:Order Comment: Specimen Type: BLOOD SPECIMENOrdering Facility: [facility] Address:[address] [place] [address] Performed By: #### ABS19 ####[facility] LABCLIA [id number] [facility]ENTERK [id number] [place] [address] [place] AMERICACD3-CD19+ cells/100 cells (Bld)1 %Low5-22[facility] on above:Order Comment: Specimen Type: BLOOD SPECIMENOrdering Facility: [facility] Address:[address] [place], [place] [address]Performed By: #### ABS19 ####[facility] LABCLIA [id number] [facility]ITALD [facility]ALK [address] [address] [place] AMERICALymphocytes/100 WBC FC (Bld)Normal [facility] on above:Order Comment: Specimen Type: BLOOD SPECIMENOrdering Facility: [facility] Address:[address] [place], [place] [address]Performed By: #### ABS19 ####[facility] LABIA [id number] [place] [address] [place] AMERICAComprehensive metabolic 2000 panelon 97-94-1006Gdrfmnk [Mass/Vol]4.4 g/dLNormal3.9-4.9CC[facility] on above:Order Comment: Specimen Type: BLOOD SPECIMENOrdering Facility: [facility] Address:[address] [place], [place] [address]Performed By: #### 58416-6 ####[facility] LABIA [id number] [place] [address] [place] AMERICAALP [Catalytic activity/Vol]59 U/UNmrgkh27-242QkphipqxsEast [facility] on above:Order Comment: Specimen Type: BLOOD SPECIMENOrdering Facility: [facility] Address:[address] [place], [place] [address]Performed By: #### 03428-6 ####[facility] LABCLIA [id number] [address] [address] [place] AMERICAALT [Catalytic activity/Vol]14 U/LNormal7-38[facility] on above:Order Comment: Specimen Type: BLOOD SPECIMENOrdering Facility: [facility] Address:[address] [place], [place] [address]Result Comment: Results may be falsely increased due to interference from hemolysis. Suggest reorder as clinically indicated. Performed By: #### 97482-0 ####[facility] LABCLIA [id number] [place] [id number] [place] Anion gap [Moles/Vol]15 mmol/LNormal8-15[facility] on above:Order Comment: Specimen Type: BLOOD SPECIMENOrdering Facility: [facility] Address:[address] [place], [place] [address]Performed By: #### 70629-5 ####[facility] LABCLIA [id number] [place] [address] [place] AMERICAAST [Catalytic activity/Vol]32 U/QLzpais28-22XcriejficEast [facility] City Hospital on above:Order Comment: Specimen Type: BLOOD SPECIMENOrdering Facility: [facility] Address:[address] [place], [place] [address]Result Comment: Results may be falsely increased due to interference from hemolysis. Suggest reorder as clinically indicated.Performed By: #### 85124-0 ####[facility] LABCLIA [id number] [address] [address] [place] AMERICABilirubin [Mass/Vol]0.2 mg/dLNormal0.2-1.3CUniversity [facility]als [facility] Comment on above:Order Comment: Specimen Type: BLOOD SPECIMENOrdering Facility: [facility] Address:[address] [place] [address] Performed By: #### 89987-9 ####[facility] LABCLIA [id number] [place] [address] [place] Calcium [Mass/Vol]9.7 mg/dLNormal8.5-10.2CC[facility] Clinic [facility] on above:Order Comment: Specimen Type: BLOOD SPECIMENOrdering Facility: [facility] Address:[address] [place], [place] [address]Performed By: #### 42836-9 ####[facility] LABCLIA [id number] [place] [address] [place] AMERICAChloride [Moles/Vol] 103 mmol/VDzkryh50-503MbebonqrhEast [facility] Hospital on above:Order Comment: Specimen Type: BLOOD SPECIMENOrdering Facility: [facility] Address:[address] [place], [place] [address]Performed By: #### 01703-5 ####[facility] LABIA [id number] [place] [address] [place] AMERICACO2 [Moles/Vol]19 mmol/MQdr67-69 [facility] on above:Order Comment: Specimen Type: BLOOD SPECIMENOrdering Facility: [facility] Address:[address] [place], [place] [address]Performed By: #### 01627-9 ####[facility] LABIA [id number] [place] [address] [place] AMERICACreatinine [Mass/Vol]0.77 mg/dLNormal0.58-0.96[facility] Comment on above:Order Comment: Specimen Type: BLOOD SPECIMENOrdering Facility: [facility] Address:[address] [place] [address] Performed By: #### 88633-3 ####[facility] LABIA [id number] [place] [address] [place] eGFRcr SerPlBld CKD-EPI [id number] mL/min/1.73m???Normal>=60[facility] on above:Order Comment: Specimen Type: BLOOD SPECIMENOrdering Facility: [facility] Address:[address] [place], [place] [address]Cplmit Comment: Estimated Glomerular Filtration Rate (eGFR) is [...] accurately reflect actual GFR. Performed By: #### 64314-4 ####[facility] LABIA [id number] [place] [id number] [place] Glucose [Mass/Vol]121 mg/aDNowl03-49JdftqsxxdEast [facility] Hospital on above: Order Comment: Specimen Type: BLOOD SPECIMENOrdering Facility: [facility] Address:[address] [place], [place] [address]Result Comment: The [place] [employer] (ADA) provides guidance for cutoff values for fast ing glucose and random glucose. The ADA defines [...] Standards of Medical Care in Diabetes 2016, [place] [employer]. Diabetes Care. 2016.39(Suppl 1).Performed By: #### 72639-6 ####[facility] LABIA [id number] [place] [id number] [place] AMERICAPotassium [Moles/Vol]5.0 mmol/L Normal3.7-5.1CCleveland Clinic [facility] on above:Order Comment: Specimen Type: BLOOD SPECIMENOrdering Facility: [facility] Address:[address] [place] [id number] By: #### 29596-1 ####[facility] LABCLIA [id number] [place] [id number] [place] AMERICAProtein [Mass/Vol]7.5 g/dLNormal6.3-8.0[facility] on above:Order Comment: Specimen Type: BLOOD SPECIMENOrdering Facility: [facility] Address:[address] [place], [place] [address]Performed By: #### 34057-1 ####[facility] LABCLIA [id number] [place] [address] [place] Sodium [Moles/Vol]137 mmol/SPgtnjp166-643HsntkurlhEast [facility] Hospital on above:Order Comment: Specimen Type: BLOOD SPECIMENOrdering Facility: [facility] Address:[address] [place], [place] [address]Performed By: #### 77897-3 ####[facility] LABIA [id number] [place] [address] [place] AMERICAUrea nitrogen [Mass/Vol]12 mg/dLNormal7-21[facility] on above:Order Comment: Specimen Type: BLOOD SPECIMENOrdering Facility: [facility] Address:[address] [place], [place] [address]Performed By: #### 53249- 8 ####[facility] LABIA [id number] [place] [address] [place] AMERICAIgG SerPl-mCncon 03-36-5445CbL [Mass/Vol]940 mg/uCPllsvs973-3161QskxbeeyhEast [facility] on above: Order Comment: Specimen Type: BLOOD SPECIMENOrdering Facility: [facility] Address:[address] [place], [place] [address]Performed By: #### 2472- 9, 2465-3 ####[facility] LABCLIA [id number] [place] [address] [place] AMERICAIgM SerPl-mCncon 56-75-3479MaC [Mass/Vol]205 mg/gUOpmlzv92-238ZnazdackqEast [facility] on above:Order Comment: Specimen Type: BLOOD SPECIMENOrdering Facility: [facility] Address:[address] [place] [address] Performed By: #### 2472-9, 2465-3 ####[facility] LABCLIA [id number] [facility] HOSPITALSelwyn [place] [address] [place] CNPReema [id number] (NEMSMN) CARRIE BERNSTEIN ([id number]) 2000 F Date Time Provider Department 11/20/24 SONYA HOLLOWAY During your visit today, we recorded the following information about you: Dieter Joiner 11/20/2024 10:29 AM Signed Left voicemail regarding scheduling follow up appointment with Amie fellow on 12/19 infusion date. Scheduling number included for call back. Allergies As of Date: 11/20/2024 Noted Allergy Reaction COCONUT 01/25/2024 9 - Itching Date Reviewed: 06/19/2024 Reviewed by: Alma Rosa Reyes RN - Fully Assessed Reason for Visit: Appointment [186] Cmt: Left voicemail regarding scheduling follow up appointment with Amie fellow on 12/19 infusion date. Scheduling number included for call back. Prescriptions as of 11/20/2024 - pregablin (LYRICA) 200 mg capsule Take 1 capsule by mouth two times a day for 90 days. - baclofen 10 mg tablet Take 1 tablet by mouth three times a day. - nortriptyline (PAMELOR) 10 mg capsule Take 2 capsules by mouth two times a day. - Clindamycin Phosphate (CLEOCIN T) 1 % lotion Apply twice daily as needed for flares - ocrelizumab (OCREVUS INTRAVENOUS) Inject intravenously. - [...] the MR contrast administration guidelines link - VYVANSE 30 mg capsule Take 1 capsule by mouth once daily. - gabapentin (NEURONTIN) 100 mg capsule (Discontinued) Take 300 mg by mouth three times a day. 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] 09/20/2023 Nicotine use disorder, F17.2 [F17.200] 09/21/2023 Obesity, Class II, BMI 35-39.9 [E66.812] 09/23/2023 ADHD [F90.9] 09/23/2023 Neuropathic pain [M79.2] 09/23/2023 Vasovagal episode [R55] 09/23/2023 09/26/2023 Alteration in self-care ability [R68.89] 09/23/2023 Impaired mobility [Z74.09] 09/23/2023 At risk for falls [Z91.81] 09/23/2023 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] 10/28/2023 Encounter Status:Closed by DIETER JOINER on 11/20/24[facility] [id number] (NEMRMN) CARRIE BERNSTEIN ([id number]) 2000 F Date Time Provider Department 09/04/24 AMAURI GARCIA During your visit today, we recorded the following information about you: Amauri Garcia, Research Coordinator 09/04/2024 1:37 PM Signed IRB# [id number]: Ultra high-field (7 Autumn) MRI of the spinal cord in neurological diseases Sanitary Engineer: Jayjay Miramontes MD, PhD ( Pager: [phone]) Mountain Services Manager: Amauri Garcia ( Pager: [phone]) Left voicemail to see if patient was planning to attend today's apt or would like to cancel/reschedule. Amauri Garcia, Research Coordinator Allergies As of Date: 09/04/2024 Noted Allergy Reaction COCONUT 01/25/2024 9 - Itching Date Reviewed: 06/19/2024 Reviewed by: Alma Rosa Reyes, GERMÁN - Fully Assessed Reason for Visit: Research F/U [438] Prescriptions as of 09/04/2024 - Pregabalin (LYRICA) 200 mg capsule Take 1 capsule by mouth two times a day for 90 days. - baclofen 10 mg tablet Take 1 tablet by mouth three times a day. - nortriptyline (PAMELOR) 10 mg capsule Take 2 capsules by mouth two times a day. - Clindamycin Phosphate (CLEOCIN T) 1 % lotion Apply twice daily as needed for flares - ocrelizumab (OCREVUS INTRAVENOUS) Inject intravenously. - [...] the MR contrast administration guidelines link - VYVANSE 30 mg capsule Take 1 capsule by mouth once daily. - gabapentin (NEURONTIN) 100 mg capsule (Discontinued) Take 300 mg by mouth three times a day. 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] 09/20/2023 Nicotine use disorder, F17.2 [F17.200] 09/21/2023 Obesity, Class II, BMI 35-39.9 [E66.812] 09/23/2023 ADHD [F90.9] 09/23/2023 Neuropathic pain [M79.2] 09/23/2023 Vasovagal episode [R55] 09/23/2023 09/26/2023 Alteration in self-care ability [R68.89] 09/23/2023 Impaired mobility [Z74.09] 09/23/2023 At risk for falls [Z91.81] 09/23/2023 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] 10/28/2023 Encounter Status:Closed by AMAURI GARCIA on 09/04/24NoMercy Health Fairfield Hospitalon [id number] (NEMRMN) CARRIE BERNSTEIN ([id number]) 2000 F Date Time Provider Department 09/03/24 AMAURI GARCIA During your visit today, we recorded the following information about you: Amauri Garcia, Research Coordinator 09/03/2024 3:53 PM Signed IRB# [id number]: Ultra high-field (7 Autumn) MRI of the spinal cord in neurological diseases Sanitary Engineer: Jayjay Miramontes MD, PhD ( Pager: [phone]) Mountain Services Manager: Amauri Garcia ( Pager: [phone]) Left voicemail with 7T Spine study apt reminder (tomorrow, 09/04/2024 at 1:30p). Amauri Garcia, Research Coordinator Allergies As of Date: 09/03/2024 Noted Allergy Reaction COCONUT 01/25/2024 9 - Itching Date Reviewed: 06/19/2024 Reviewed by: Alma Rosa Reyes, GERMÁN - Fully Assessed Reason for Visit: Research F/U [188] Prescriptions as of 09/03/2024 - Pregabalin (LYRICA) 200 mg capsule Take 1 capsule by mouth two times a day for 90 days. - baclofen 10 mg tablet Take 1 tablet by mouth three times a day. - nortriptyline (PAMELOR) 10 mg capsule Take 2 capsules by mouth two times a day. - Clindamycin Phosphate (CLEOCIN T) 1 % lotion Apply twice daily as needed for flares - ocrelizumab (OCREVUS INTRAVENOUS) Inject intravenously. - [...] the MR contrast administration guidelines link - VYVANSE 30 mg capsule Take 1 capsule by mouth once daily. - gabapentin (NEURONTIN) 100 mg capsule (Discontinued) Take 300 mg by mouth three times a day. 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] 09/20/2023 Nicotine use disorder, F17.2 [F17.200] 09/21/2023 Obesity, Class II, BMI 35-39.9 [E66.812] 09/23/2023 ADHD [F90.9] 09/23/2023 Neuropathic pain [M79.2] 09/23/2023 Vasovagal episode [R55] 09/23/2023 09/26/2023 Alteration in self-care ability [R68.89] 09/23/2023 Impaired mobility [Z74.09] 09/23/2023 At risk for falls [Z91.81] 09/23/2023 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] 10/28/2023 Encounter Status:Closed by AMAURI GARCIA on 09/03/24NoCincinnati Shriners HospitalCNPNon [id number] (NEMRMN) CARRIE BERNSTEIN ([id number]) 2000 F Date Time Provider Department 07/27/24 AMAURI GARCIA During your visit today, we recorded the following information about you: Amauri Garcia, Research Coordinator 07/27/2024 2:42 PM Signed IRB# [id number]: Ultra high-field (7 Autumn) MRI of the spinal cord in neurological diseases Sanitary Engineer: Jayjay Miramontes MD, PhD ( Pager: [phone]) Mountain Services Manager: Amauri Garcia ( Pager: [phone]) Called patient to see if they would like to reschedule research apt. Patient agreeable to September 04 at 1:30pm. Amauri Garcia Research Coordinator Allergies As of Date: 07/27/2024 Noted Allergy Reaction COCONUT 01/25/2024 9 - Itching Date Reviewed: 06/19/2024 Reviewed by: Alma Rosa Reyes, RN - Fully Assessed Reason for Visit: Research F/U [778] Prescriptions as of 07/27/2024 - Pregabalin (LYRICA) 200 mg capsule Take 1 capsule by mouth two times a day for 90 days. - baclofen 10 mg tablet Take 1 tablet by mouth three times a day. - nortriptyline (PAMELOR) 10 mg capsule Take 2 capsules by mouth two times a day. - Clindamycin Phosphate (CLEOCIN T) 1 % lotion Apply twice daily as needed for flares - ocrelizumab (OCREVUS INTRAVENOUS) Inject intravenously. - [...] the MR contrast administration guidelines link - VYVANSE 30 mg capsule Take 1 capsule by mouth once daily. - gabapentin (NEURONTIN) 100 mg capsule (Discontinued) Take 300 mg by mouth three times a day. 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 John Medical CenterPNon [id number] (NEMRMN) CARRIE BERNSTEIN ([id number]) 2000 F Date Time Provider Department 07/24/24 AMAURI GARCIA During your visit today, we recorded the following information about you: Amauri Garcia, Research Coordinator 07/24/2024 10:03 AM Signed IRB# [id number]: Ultra high-field (7 Autumn) MRI of the spinal cord in neurological diseases Sanitary Engineer: Jayjay Miramontes MD, PhD ( Pager: [phone]) Mountain Services Manager: Amauri Garcia ( Pager: [phone]) Left voicemail for patient to call back if they'd like to reschedule 7T Spine Study apt. Amauri Garcia, Research Coordinator Allergies As of Date: 07/24/2024 Noted Allergy Reaction COCONUT 01/25/2024 9 - Itching Date Reviewed: 06/19/2024 Reviewed by: Alma Rosa Reyes, RN - Fully Assessed Reason for Visit: Research F/U [368] Prescriptions as of 07/24/2024 - baclofen 10 mg tablet Take 1 tablet by mouth three times a day. - nortriptyline (PAMELOR) 10 mg capsule Take 2 capsules by mouth two times a day. - Clindamycin Phosphate (CLEOCIN T) 1 % lotion Apply twice daily as needed for flares - Pregabalin (LYRICA) 200 mg capsule Take 1 capsule by mouth two times a day for 90 days. - ocrelizumab (OCREVUS INTRAVENOUS) Inject intravenously. - [...] the MR contrast administration guidelines link - VYVANSE 30 mg capsule Take 1 capsule by mouth once daily. - gabapentin (NEURONTIN) 100 mg capsule (Discontinued) Take 300 mg by mouth three times a day. 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] 09/20/2023 Nicotine use disorder, F17.2 [F17.200] 09/21/2023 Obesity, Class II, BMI 35-39.9 [E66.812] 09/23/2023 ADHD [F90.9] 09/23/2023 Neuropathic pain [M79.2] 09/23/2023 Vasovagal episode [R55] 09/23/2023 09/26/2023 Alteration in self-care ability [R68.89] 09/23/2023 Impaired mobility [Z74.09] 09/23/2023 At risk for falls [Z91.81] 09/23/2023 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] 10/28/2023 Encounter Status:Closed by AMAURI GARCIA on 07/24/24[facility] [id number] (NEMRMN) CARRIE BERNSTEIN ([id number]) 2000 F Date Time Provider Department 07/23/24 AMAURI GARCIA During your visit today, we recorded the following information about you: Amauri Garcia, Research Coordinator 07/23/2024 9:00 AM Signed IRB# [id number]: Ultra high-field (7 Autumn) MRI of the spinal cord in neurological diseases Sanitary Engineer: Jayjay Miramontes MD, PhD ( Pager: [phone]) Mountain Services Manager: Amauri Garcia ( Pager: [phone]) Patient called research line requesting to cancel today's appointment due to illness. Called patient back to see if they would like to reschedule. Patient requested call back tomorrow, 07/24/2024. CRC will call around 10:00am. Amauri Garcia, Research Coordinator Allergies As of Date: 07/23/2024 Noted Allergy Reaction COCONUT 01/25/2024 9 - Itching Date Reviewed: 06/19/2024 Reviewed by: Alma Rosa Reyes, RN - Fully Assessed Reason for Visit: Research F/U [778] Prescriptions as of 07/23/2024 - baclofen 10 mg tablet Take 1 tablet by mouth three times a day. - nortriptyline (PAMELOR) 10 mg capsule Take 2 capsules by mouth two times a day. - Clindamycin Phosphate (CLEOCIN T) 1 % lotion Apply twice daily as needed for flares - Pregabalin (LYRICA) 200 mg capsule Take 1 capsule by mouth two times a day for 90 days. - ocrelizumab (OCREVUS INTRAVENOUS) Inject intravenously. - [...] the MR contrast administration guidelines link - VYVANSE 30 mg capsule Take 1 capsule by mouth once daily. - gabapentin (NEURONTIN) 100 mg capsule (Discontinued) Take 300 mg by mouth three times a day. 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] 09/20/2023 Nicotine use disorder, F17.2 [F17.200] 09/21/2023 Obesity, Class II, BMI 35-39.9 [E66.812] 09/23/2023 ADHD [F90.9] 09/23/2023 Neuropathic pain [M79.2] 09/23/2023 Vasovagal episode [R55] 09/23/2023 09/26/2023 Alteration in self-care ability [R68.89] 09/23/2023 Impaired mobility [Z74.09] 09/23/2023 At risk for falls [Z91.81] 09/23/2023 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] 10/28/2023 Encounter Status:Closed by AMAURI GARCIA on 07/23/24[facility] HospitalPNon [id number] (TEETEERMYi) CARRIE BERNSTEIN ([id number]) 2000 F Date Time Provider Department 07/16/24 AMAURI GARCIA During your visit today, we recorded the following information about you: Amauri Garcia, Research Coordinator 07/16/2024 2:57 PM Signed IRB# [id number]: Ultra high-field (7 Autumn) MRI of the spinal cord in neurological diseases Sanitary Engineer: Jayjay Miramontes MD, PhD ( Pager: [phone]) Mountain Services Manager: Amauri Garcia ( Pager: [phone]) Called patient to see if they would like to reschedule their 7T Spine study apt. Patient agreeable to reschedule for 07/23/2024 at 1:30pm. Amauri Garcia, Research Coordinator Allergies As of Date: 07/16/2024 Noted Allergy Reaction COCONUT 01/25/2024 9 - Itching Date Reviewed: 06/19/2024 Reviewed by: Alma Rosa Reyes, GERMÁN - Fully Assessed Reason for Visit: Research F/U [598] Prescriptions as of 07/16/2024 - baclofen 10 mg tablet Take 1 tablet by mouth three times a day. - nortriptyline (PAMELOR) 10 mg capsule Take 2 capsules by mouth two times a day. - Clindamycin Phosphate (CLEOCIN T) 1 % lotion Apply twice daily as needed for flares - Pregabalin (LYRICA) 200 mg capsule Take 1 capsule by mouth two times a day for 90 days. - ocrelizumab (OCREVUS INTRAVENOUS) Inject intravenously. - [...] the MR contrast administration guidelines link - VYVANSE 30 mg capsule Take 1 capsule by mouth once daily. - gabapentin (NEURONTIN) 100 mg capsule (Discontinued) Take 300 mg by mouth three times a day. 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] 09/20/2023 Nicotine use disorder, F17.2 [F17.200] 09/21/2023 Obesity, Class II, BMI 35-39.9 [E66.812] 09/23/2023 ADHD [F90.9] 09/23/2023 Neuropathic pain [M79.2] 09/23/2023 Vasovagal episode [R55] 09/23/2023 09/26/2023 Alteration in self-care ability [R68.89] 09/23/2023 Impaired mobility [Z74.09] 09/23/2023 At risk for falls [Z91.81] 09/23/2023 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] 10/28/2023 Encounter Status:Closed by AMAURI GARCIA on 07/16/24[facility] CenterSharan [id number] (NEMRMN) CARRIE BERNSTEIN ([id number]) 2000 F Date Time Provider Department 07/11/24 AMAURI GARCIA During your visit today, we recorded the following information about you: Amauri Garcia, Research Coordinator 07/11/2024 1:42 PM Signed IRB# [id number]: Ultra high-field (7 Autumn) MRI of the spinal cord in neurological diseases Sanitary Engineer: Jayjay Miramontes MD, PhD ( Pager: [phone]) Mountain Services Manager: Amauri Garcia ( Pager: [phone]) Left voicemail for patient to return call and let research team know if she was on her way to research apt or needed to cancel/reschedule. Amauri Garcia, Research Coordinator Allergies As of Date: 07/11/2024 Noted Allergy Reaction COCONUT 01/25/2024 9 - Itching Date Reviewed: 06/19/2024 Reviewed by: Alma Rosa Reyes RN - Fully Assessed Reason for Visit: Research F/U [788] Prescriptions as of 07/11/2024 - baclofen 10 mg tablet Take 1 tablet by mouth three times a day. - nortriptyline (PAMELOR) 10 mg capsule Take 2 capsules by mouth two times a day. - Clindamycin Phosphate (CLEOCIN T) 1 % lotion Apply twice daily as needed for flares - Pregabalin (LYRICA) 200 mg capsule Take 1 capsule by mouth two times a day for 90 days. - ocrelizumab (OCREVUS INTRAVENOUS) Inject intravenously. - [...] the MR contrast administration guidelines link - VYVANSE 30 mg capsule Take 1 capsule by mouth once daily. - gabapentin (NEURONTIN) 100 mg capsule (Discontinued) Take 300 mg by mouth three times a day. 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] 09/20/2023 Nicotine use disorder, F17.2 [F17.200] 09/21/2023 Obesity, Class II, BMI 35-39.9 [E66.812] 09/23/2023 ADHD [F90.9] 09/23/2023 Neuropathic pain [M79.2] 09/23/2023 Vasovagal episode [R55] 09/23/2023 09/26/2023 Alteration in self-care ability [R68.89] 09/23/2023 Impaired mobility [Z74.09] 09/23/2023 At risk for falls [Z91.81] 09/23/2023 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] 10/28/2023 Encounter Status:Closed by AMAURI GARCIA on 07/11/24NoCincinnati Shriners HospitalRIPon [id number] (NEMARMENN) CARRIE BERNSTEIN ([id number]) 2000 F Date Time Provider Department 07/05/24 AMAURI GARCIA During your visit today, we recorded the following information about you: Amauri Garcia, Research Coordinator 07/05/2024 10:30 AM Signed IRB# [id number]: Ultra high-field (7 Autumn) MRI of the spinal cord in neurological diseases Sanitary Engineer: Jayjay Miramontes MD, PhD ( Pager: [phone]) Mountain Services Manager: Amauri Garcia ( Pager: [phone]) Called patient for apt reminder for 7T Spine study (tomorrow, 07/06/2024 at 12:30p). Patient requested to reschedule apt. Rescheduled for 07/11/2024 at 1:30pm. Amauri Garcia Research Coordinator Allergies As of Date: 07/05/2024 Noted Allergy Reaction COCONUT 01/25/2024 9 - Itching Date Reviewed: 06/19/2024 Reviewed by: Alma Rosa Reyes, RN - Fully Assessed Prescriptions as of 07/05/2024 - baclofen 10 mg tablet Take 1 tablet by mouth three times a day. - nortriptyline (PAMELOR) 10 mg capsule Take 2 capsules by mouth two times a day. - Clindamycin Phosphate (CLEOCIN T) 1 % lotion Apply twice daily as needed for flares - Pregabalin (LYRICA) 200 mg capsule Take 1 capsule by mouth two times a day for 90 days. - ocrelizumab (OCREVUS INTRAVENOUS) Inject intravenously. - [...] the MR contrast administration guidelines link - VYVANSE 30 mg capsule Take 1 capsule by mouth once daily. - gabapentin (NEURONTIN) 100 mg capsule (Discontinued) Take 300 mg by mouth three times a day. 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] 09/20/2023 Nicotine use disorder, F17.2 [F17.200] 09/21/2023 Obesity, Class II, BMI 35-39.9 [E66.812] 09/23/2023 ADHD [F90.9] 09/23/2023 Neuropathic pain [M79.2] 09/23/2023 Vasovagal episode [R55] 09/23/2023 09/26/2023 Alteration in self-care ability [R68.89] 09/23/2023 Impaired mobility [Z74.09] 09/23/2023 At risk for falls [Z91.81] 09/23/2023 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] 10/28/2023 Encounter Status:Closed by AMAURI GARCIA on 07/05/24NoCincinnati Shriners HospitalCD19 ABSOLUTE COUNTon [id number]-CD19+ cells (Bld) [#/Vol]21 cells/iGBiq93-098VlbkasuipEast [facility] Hospital on above:Order Comment: Specimen Type: BLOOD SPECIMENOrdering Facility: [facility] Address:[address] [place], [place] [address]Performed By: #### ABS19 ####[facility] LABCLIA [id number] [facility] [place] [address] [place] AMERICACD3-CD19+ cells/100 cells (Bld)1 % Low5-22[facility] on above:Order Comment: Specimen Type: BLOOD SPECIMENOrdering Facility: [facility] Address:[address] [place], [place] [address]Performed By: #### ABS19 ####[facility] LABCLIA [id number] [place] [address] [place] OF AMERICALymphocytes/100 WBC FC (Bld)NormalSt. Charles Hospital Comment on above:Order Comment: Specimen Type: BLOOD SPECIMENOrdering Facility: [facility] Address:[address] [place] [address] Performed By: #### ABS19 ####[facility] LABCLIA [id number] [place] [address] [place] AMERICAIMMUNOGLOBULIN Mike 76-71-2625EuX [Mass/Vol]867 mg/dL700 - 1600 mg/dLPromedica Toledo Hospital IMMUNOGLOBULIN Mon 94-67-4978ViB [Mass/Vol]210 mg/dL40 - 230 mg/dLPromedica Toledo HospitalIgG SerPl-mCncon 79-30-0776WpS [Mass/Vol]867 mg/uODegsdx992-6918JwzmrtwpzEast [facility] on above:Order Comment: Specimen Type: BLOOD SPECIMENOrdering Facility: [facility] Address:[address] [place], [place] [address]Performed By: #### 2472-9, 2465-3 ####[facility] LABCLIA [id number] [facility] [place] [id number] [place] OF AMERICAIgM SerPl-mCncon 95-26-1495XdA [Mass/Vol]210 mg/yNUqofxu43-201 St[facility] HospitalComment on above:Order Comment: Specimen Type: BLOOD SPECIMENOrdering Facility: [facility] Address:[address] [place], [place] [address]Performed By: #### 2472-9, 2465-3 ####[facility] LABCLIA [id number] [place] [address] [place] AMERICANo Panel Informationon 29-03-3068Xgcawfnigvunqy and review of laboratory resultsNormalCMetroHealth Parma Medical CenterCNPNon [id number] Telephone (CHAPIN) CARRIE BERNSTEIN ([id number]) 2000 F Date Time Provider Department 06/04/24 AMAURI GARCIA During your visit today, we recorded the following information about you: Amauri Garcia, Research Coordinator 06/04/2024 1:27 PM Signed IRB# [id number]: Ultra high-field (7 Autumn) MRI of the spinal cord in neurological diseases Sanitary Engineer: Jayjay Miramontes MD, PhD ( Pager: [phone]) Mountain Services Manager: Amauri Garcia ( Pager: [phone]) Called patient to reschedule research apt. Rescheduled for 07/06/2024 at 12:30pm. Amauri Garcia, Research Coordinator Allergies As of Date: 06/04/2024 Noted Allergy Reaction COCONUT 01/25/2024 9 - Itching Date Reviewed: 05/04/2024 Reviewed by: June Coreas RN - Fully Assessed Reason for Visit: Research F/U [778] Prescriptions as of 06/04/2024 - nortriptyline (PAMELOR) 10 mg capsule Take 2 capsules by mouth two times a day. - Clindamycin Phosphate (CLEOCIN T) 1 % lotion Apply twice daily as needed for flares - Pregabalin (LYRICA) 200 mg capsule Take 1 capsule by mouth two times a day for 90 days. - baclofen 10 mg tablet Take 1 [...] the MR contrast administration guidelines link - VYVANSE 30 mg capsule Take 1 capsule by mouth once daily. - gabapentin (NEURONTIN) 100 mg capsule (Discontinued) Take 300 mg by mouth three times a day. 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] 09/20/2023 Nicotine use disorder, F17.2 [F17.200] 09/21/2023 Obesity, Class II, BMI 35-39.9 [E66.812] 09/23/2023 ADHD [F90.9] 09/23/2023 Neuropathic pain [M79.2] 09/23/2023 Vasovagal episode [R55] 09/23/2023 09/26/2023 Alteration in self-care ability [R68.89] 09/23/2023 Impaired mobility [Z74.09] 09/23/2023 At risk for falls [Z91.81] 09/23/2023 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] 10/28/2023 Encounter Status:Closed by AMAURI GARCIA on 06/04/24[facility] [id number] (NEMRMN) CARRIE BERNSTEIN ([id number]) 2000 F Date Time Provider Department 05/31/24 AMAURI GARCIA During your visit today, we recorded the following information about you: Amauri Garcia, Research Coordinator 05/31/2024 2:36 PM Signed IRB# [id number]: Ultra high-field (7 Autumn) MRI of the spinal cord in neurological diseases Sanitary Engineer: Jayjay Miramontes MD, PhD ( Pager: [phone]) Mountain Services Manager: Amauri Garcia ( Pager: [phone]) Called patient back to reschedule visit, as EDSS rater is going to be on hospital service this day. Left voicemail requesting call back as soon as possible. Amauri Roser, Research Coordinator Allergies As of Date: 05/31/2024 Noted Allergy Reaction COCONUT 01/25/2024 9 - Itching Date Reviewed: 05/04/2024 Reviewed by: June Coreas RN - Fully Assessed Reason for Visit: Research F/U [778] Prescriptions as of 05/31/2024 - nortriptyline (PAMELOR) 10 mg capsule Take 2 capsules by mouth two times a day. - Clindamycin Phosphate (CLEOCIN T) 1 % lotion Apply twice daily as needed for flares - Pregabalin (LYRICA) 200 mg capsule Take 1 capsule by mouth two times a day for 90 days. - baclofen 10 mg tablet Take 1 [...] the MR contrast administration guidelines link - VYVANSE 30 mg capsule Take 1 capsule by mouth once daily. - gabapentin (NEURONTIN) 100 mg capsule (Discontinued) Take 300 mg by mouth three times a day. 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] 09/20/2023 Nicotine use disorder, F17.2 [F17.200] 09/21/2023 Obesity, Class II, BMI 35-39.9 [E66.812] 09/23/2023 ADHD [F90.9] 09/23/2023 Neuropathic pain [M79.2] 09/23/2023 Vasovagal episode [R55] 09/23/2023 09/26/2023 Alteration in self-care ability [R68.89] 09/23/2023 Impaired mobility [Z74.09] 09/23/2023 At risk for falls [Z91.81] 09/23/2023 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] 10/28/2023 Encounter Status:Closed by AMAURI GARCIA on 05/31/24NoCincinnati Shriners HospitalCNPNTelephone (NEMRMN) CARRIE BERNSTEIN ([id number]) 2000 F Date Time Provider Department 05/31/24 AMAURI GARCIA During your visit today, we recorded the following information about you: Amauri Garcia, Research Coordinator 05/31/2024 2:31 PM Addendum IRB# [id number]: Ultra high-field (7 Autumn) MRI of the spinal cord in neurological diseases Sanitary Engineer: Jayjay Miramontes MD, PhD ( Pager: [phone]) Mountain Services Manager: Amauri Garcia ( Pager: [phone]) Called patient regarding eligibility for 7T Spinal Cord study. Provided study information and answered study-related questions - MRI's will not be viewable to pt or their clinical team, a review of the images will be conducted and pt will be notified if there is a clinically significant finding, if no findings the pt will not hear from anyone post research scan, there will be about 50 patients with MS that participate. Patient interested in participating and scheduled visit for 06/13/2024 at 12:30pm. Amauri Garcia, Research Coordinator Allergies As of Date: 05/31/2024 Noted Allergy Reaction COCONUT 01/25/2024 9 - Itching Date Reviewed: 05/04/2024 Reviewed by: June Coreas RN - Fully Assessed Reason for Visit: Research F/U [858] Prescriptions as of 05/31/2024 - nortriptyline (PAMELOR) 10 mg capsule Take 2 capsules by mouth two times a day. - Clindamycin Phosphate (CLEOCIN T) 1 % lotion Apply twice daily as needed for flares - Pregabalin (LYRICA) 200 mg capsule Take 1 capsule by mouth two times a day for 90 days. - baclofen 10 mg tablet Take 1 [...] the MR contrast administration guidelines link - VYVANSE 30 mg capsule Take 1 capsule by mouth once daily. - gabapentin (NEURONTIN) 100 mg capsule (Discontinued) Take 300 mg by mouth three times a day. 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] 09/20/2023 Nicotine use disorder, F17.2 [F17.200] 09/21/2023 Obesity, Class II, BMI 35-39.9 [E66.812] 09/23/2023 ADHD [F90.9] 09/23/2023 Neuropathic pain [M79.2] 09/23/2023 Vasovagal episode [R55] 09/23/2023 09/26/2023 Alteration in self-care ability [R68.89] 09/23/2023 Impaired mobility [Z74.09] 09/23/2023 At risk for falls [Z91.81] 09/23/2023 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] 10/28/2023 Encounter Status:Closed by AMAURI GARCIA on 05/31/24No[facility] Lisa Christianson [id number],UrineSpecimen Description .CLEAN CATCH URINE Culture ESCHERICHIA COLI >100,000 CFU/ML Identification by MALDI-TOF Report Status FINAL 05/25/2024 SUSCEPTIBILITY Organism ESCHERICHIA COLI Method IVY Ampicillin >=32 RESISTANT Cefazolin <=4 SUSCEPTIBLE Cefazolin sensitivity results can be used to predict the effectiveness of oral cephalosporins (eg. Cephalexin) in uncomplicated Urinary Tract Infections due to E. coli, K. pneumoniae, and P. mirabilis Ceftriaxone <=0.25 SUSCEPTIBLE ESBL NEGATIVE Gentamicin <=1 SUSCEPTIBLE Levofloxacin >=8 RESISTANT Nitrofurantoin <=16 SUSCEPTIBLE Piperacillin/Tazobactam <=4 SUSCEPTIBLE Tobramycin <=1 SUSCEPTIBLE Trimethoprim/Sulfa <=20 SUSCEPTIBLESusceptibleMiami Valley HospitalComment on above:Performed By: #### CBC, BMP #### [facility] [address] [place] [id number] Gear Generator Set Up Operator: Vanda Quirosroscopic Urinalysison 19-13-4747Dcnnygqjpr cells LM.HPF (Urine sed) [#/Area]5 TO 10[facility] Health InstituteRBC LM.HPF (Urine sed) [#/Area]0 TO 2[facility] InstituteWBC LM.HPF (Urine sed) [#/Area]20 TO 50[facility] Health InstituteBon Secours Riverview Health InstituteUA w/Reflex Cultureon 07-92-4083Qmixzmdni, SemiQt,UrNegativeNormalNEGMiami Valley Hospital Comment on above:Performed By: #### CBC, BMP #### [facility] [address] [place] [address] 90708 Gear Generator Set Up Operator: Noelle Quiros, UrineNegativeNormalNEGMiami Valley HospitalComment on above:Performed By: #### CBC, BMP #### [facility] [address] [place] [address] 138[address] Gear Generator Set Up Operator: KOMAL Quiroslarity (U)ClearNormalCLEARMiami Valley HospitalComdetroit receiving hospital on above:Performed By: #### CBC, BMP #### [facility] [address] [place] [address] 61304 Gear Generator Set Up Operator: KOMAL Quirosolor (U)YellowNormalYELMerMultiCare Health Comment on above:Performed By: #### CBC, BMP #### [facility] [address] [place] [address] Gear Generator Set Up Operator: Charles He MDGlucose Ql (U)NegativeNormalNEGMerMultiCare HealthComment on above:Performed By: #### CBC, BMP #### [facility] [address] [place] [address] Gear Generator Set Up Operator: Charles He MDKetones Ql (U)TRACEAbnormalNEGMercy St. Michaels Medical CenterComment on above:Performed By: #### CBC, BMP #### [facility] [address] [facility] [place] [address] Gear Generator Set Up Operator: Charles He MDLeukocyte esterase Test strip Ql (U)SMALL AbnormalNEGMerMultiCare HealthComment on above:Performed By: #### CBC, BMP #### [facility] [address] [place] [address] Gear Generator Set Up Operator: Charles He MDNitrite,UrNegativeNormalNEGMiami Valley HospitalComment on above:Performed By: #### CBC, BMP #### [facility] [address] [place] [address] Gear Generator Set Up Operator: LIAM Quiros,Ur6.7Zqtzru7.0-8.0MerMultiCare Health Comment on above:Performed By: #### CBC, BMP #### [facility] [address] [place] [address] Gear Generator Set Up Operator: LIAM Quirosrotein Ql (U)NegativeNormalNEGMerMultiCare HealthComment on above:Performed By: #### CBC, BMP #### [facility] [address] [place] [address] Gear Generator Set Up Operator: Charles Neri, MDSpec. North English,Ur1.185Mqctdt7.005-1.030Miami Valley HospitalComment on above:Performed By: #### CBC, BMP #### [facility] [address] [facility] [place], [place] [id number] Gear Generator Set Up Operator: Charles He MDUrobilinogen,UrNormalNormal0.0-1.0Miami Valley HospitalComment on above:Performed By: #### CBC, BMP #### [facility] [address] [place] [address] Gear Generator Set Up Operator: Charles He MDUrinalysis with Reflex to Cultureon 05-23-2024 Bilirubin Ql (U)NegativeNEGATIVEBon Secours [facility] Clinic Foundationy HealthClarity (U)ClearClearBon SecLafourche, St. Charles and [facility] parishes HealthColor (U)YellowYellowBon SecLafourche, St. Charles and [facility] parishes HealthGlucose Test strip (U) [Mass/Vol]NegativeNEGATIVE mg/dLBon Secours Riverview Health InstituteHemoglobin Auto test strip Ql (U)NegativeNEGATIVEBon [facility]ours [facility] Foundationy HealthInterpretation and review of laboratory resultsAbnormalBon Secours [facility] Foundationy HealthKetones (U) [Mass/Vol]TRACEAbnormalNEGATIVE mg/dLBon [facility]ours [facility] HealthLeukocyte esterase Test strip Ql (U)SMALLAbnormalNEGATIVEBon Secours [facility] HealthNitrite Ql (U) NegativeNEGATIVEBon [facility]ours [facility] Foundationy HealthpH (U)6.0 [pH]5.0 - 8.0[facility]y HealthProtein (U) [Mass/Vol]NegativeNEGATIVE mg/dLBon Secours [facility] Health Specific gravity (U) [Rel density]1.0081.005 - 1.030Bon [facility] Urobilinogen Qn (U)Normal0.0 - 1.0 EU/dLBon Secours [facility] Clinic Foundationy HealthBon [facility] Foundationy HealthUrinalysis,Microon 31-89-9623Smvrfbmzxb cells LM Ql (Urine sed)5 TO 99Wbicpx7-3LcltyMiami Valley HospitalComment on above:Performed By: #### CBC, BMP #### [facility] [address] [facility]. [place], [place] [address] Gear Generator Set Up Operator: Lidia Quiros RBC's0 TO 9Hdceae1-9Yrojk St. Michaels Medical CenterComment on above:Performed By: #### CBC, BMP #### [facility] [address] [facility] [place], [place] [phone] Gear Generator Set Up Operator: Lidia Quiros WBC's20 TO 98Apjmbh6-7Jrxxu St[address] Michaels Medical CenterComment on above:Performed By: #### CBC, BMP #### [facility] [address] [facility] [place] [address] Gear Generator Set Up Operator: Taylor Quiros 59-63-5069GBBWJqxjvoiva (NEMRMN) CARRIE BERNSTEIN ([id number]) 2000 F Date Time Provider Department 05/21/24 AMAURI GARCIA During your visit today, we recorded the following information about you: Amauri Garcia, Research Coordinator 05/21/2024 11:30 AM Signed IRB# [id number]: Ultra high-field (7 Autumn) MRI of the spinal cord in neurological diseases Sanitary Engineer: Jayjay Miramontes MD, PhD ( Pager: [phone]) Mountain Services Manager: Amauri Garcia ( Pager: [phone]) Called patient regarding eligibility for 7T Spinal Cord study. Left voicemail with coordinator contact information for patient to call back if interested in learning about the study. Amauri Garcia, Research Coordinator Allergies As of Date: 05/21/2024 Noted Allergy Reaction COCONUT 01/25/2024 9 - Itching Date Reviewed: 05/04/2024 Reviewed by: June Coreas RN - Fully Assessed Reason for Visit: Research F/U [748] Prescriptions as of 05/21/2024 - Clindamycin Phosphate (CLEOCIN T) 1 % lotion Apply twice daily as needed for flares - Pregabalin (LYRICA) 200 mg capsule Take 1 capsule by mouth two times a day for 90 days. - baclofen 10 mg tablet Take 1 tablet by mouth three times a day. - nortriptyline (PAMELOR) 10 mg capsule Take 2 capsules by mouth two times a day. - ocrelizumab (OCREVUS INTRAVENOUS) [...] the MR contrast administration guidelines link - VYVANSE 30 mg capsule Take 1 capsule by mouth once daily. - gabapentin (NEURONTIN) 100 mg capsule (Discontinued) Take 300 mg by mouth three times a day. 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] 09/20/2023 Nicotine use disorder, F17.2 [F17.200] 09/21/2023 Obesity, Class II, BMI 35-39.9 [E66.812] 09/23/2023 ADHD [F90.9] 09/23/2023 Neuropathic pain [M79.2] 09/23/2023 Vasovagal episode [R55] 09/23/2023 09/26/2023 Alteration in self-care ability [R68.89] 09/23/2023 Impaired mobility [Z74.09] 09/23/2023 At risk for falls [Z91.81] 09/23/2023 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] 10/28/2023 Encounter Status:Closed by AMAURI GARCIA on 05/21/24[facility] [id number] Visit (DERMMN) CARRIE BERNSTEIN ([id number]) 2000 F Date Time Provider Department 05/04/24 9:20 AM NAZANIN HANSEN DERMMN During your visit today, we recorded the following information about you: Nazanin Hansen MD 05/04/2024 11:16 AM Signed Dermatology Clinic Visit May 04, 2024 New Patient Dermatology Problem List: # Hidradenitis suppurativa, mchugh I - BPO, clindamycin lotion, ILK injections q4-6 weeks as needed # Multiple sclerosis - on ocrelizumab # Trichotillomania (eyelashes) CC: LESION, SKIN Allergies AND Relevant PMH Reviewed Below: - Personal history of skin cancer: No - Family history of skin cancer: Negative - Personal history of skin problems: Psoriasis - Prior biopsies: No - Tanning bed use: No - Any blistering sunburns in the past? Yes, in childhood - Does patient use sunscreen/hat/protective clothing: Yes - History of organ transplant or immunosuppressants: Yes, why ocrevus - Personal history of seasonal allergies/hay fever/asthma/sinusitis: Negative - Does patient take antibiotics prior to routine dental work: No For females: Is the patient : No Is the patient trying to get : No Does the patient have regular menstrual periods: No: control method: Tubal Ligation All PMH/FSH above obtained by clinical staff has been reviewed and confirmed by me. History of Present Illness: Carrie Bernstein is a 23 year old female who presents with abscess : Lesion 1: - Location: buttocks and vaginal area - Duration: started in 7th grade, thought they were ingrown hairs. Will re-occur in the same areas. - Signs and symptoms: where old lesions had been, seems to be scars. Has gotten small lesions under the arms. Worsens when shaving - Current using: denies - Has tried in the past: denies - New lesions every month - Lesion in buttock is painful and has minimal drainage. Has been present for 2 months. - Lesion in vaginal area is not currently painful and has drainage. - Armpits have never been involved - Patient reports she has trichotillomania and picks at her eyelashes Drainage on scale of 1-10: 7-8 Pain on scale of 1-10: 8-9 Patient does not smoke. Hx of retinopathy as a teen, was briefly on metformin, but then discontinued For females: Flares with menstrual cycle: No ? Does not recall changes in severity with Currently trying to get ? No ? No Current control methods: salpingectomy Family history of HS or recurrent boils: Sister gets recurrent boils Review of Systems: Relevant ROS listed above Skin as per HPI Physical Exam: LMP 10/23/2023 Constitutional: Well appearing and in NAD Neuro: Alert, oriented x 3 Psych: Pleasant, cooperative and appropriate Skin: Examination of face, neck, abdomen, bilateral upper extremities and bilateral lower extremities, and genitalia was significant for: - R labia with hyperpigmented nodule with overlying scar - R inguinal fold with some scarring - L lower buttock with hyperpigmented nodule - Axillae clear The sensitive examination was discussed with the Patient or Patient's Authorized Road Tester. As applicable, any other physician, advance practice provider, medical student, or other health professional student that will be observing or involved in the sensitive examination for educational or training purposes was discussed with the Patient or Authorized Road Tester. The Patient or Authorized Road Tester has agreed to proceed with the sensitive examination. Impression/Plan: # Hidradenitis suppurativa, Mchugh stage I - Medical Complexity: chronic illness - not at treatment goal - Discussed the pathophysiology of HS and extensively explained the risks and benefits of various treatment options including systemic antibiotics, anti-inflammatory medications etc.. At this time, given limited disease, will recommend: - Start benzoyl peroxide 10% wash daily to affected areas - Start clindamycin 1% lotion twice daily to affected areas for flares - Discussed ILK injections, see procedure note below. Will continue q4-6 week injections with nurse visits as needed for flares - Check HgA1c Procedures: Derm Procedures: Intralesional Kenalog: Intralesional Kenalog (triamcinolone) injection: Patient was counseled on the possible side effects of injection: pain at site, infection, atrophy of skin, systemic absorption, hypopigmentation, loss of hair. Questions if any were addressed before proceeding with prep of the site with rubbing alcohol. Kenalog was injected with sterile syringe and 30 g needle. Patient tolerated well. Concentration: 10 mg/mL Site: L buttock Total volume injected: 0.1 mL Return to clinic in 3-4 months in resident CC Jana Gaviria MD Dermatology, PGY-2 The documentation for this note was completed (more content not included)... NormalSt. Charles HospitalHCG, ,Urineon 89-32-5248Ncgz HCG ( test) Ql (U)NegativeNormalNEGMercy St. Michaels Medical CenterComment on above: Result Comment: Specimens with hCG levels near the threshold of the test (25 mIU/mL) may give a negative or indeterminate result. In such cases, another test should be performed with a new specimen in 48-72 hours. If early is suspected clinically in this setting, correlation with quantitative serum b-hCG level is suggested.Performed By: #### LARRY, LUCIA, [facility] #### [facility] [address] [place], [place] [id number] Gear Generator Set Up Operator: Charles He MDMicroscopic Urinalysison 79-75-5718Qbctnggg LM Ql (Urine sed)MODERATEAbnormalNoneBon Secours Mercy HealthCrystals LM Nom (Urine sed)2 TO 5 TRIPLE PHOSPHATEAbnormalNone /HPFBon Secours Mercy HealthEpithelial cells LM.HPF (Urine sed) [#/Area]10 TO 20[facility] HealthRBC LM.HPF (Urine sed) [#/Area]2 TO 5[facility] HealthWBC LM.HPF (Urine sed) [#/Area]10 TO 20[facility] HealthYeast LM Ql (Urine sed)FEWAbnormalNone [facility] HealthNo Panel Informationon 93-26-9895Zpbrbbgqrtdyip and review of laboratory resultsAbnormalBon Secours Mercy HealthBon Secours Mercy HealthUrinalysison 80-41-6230Doiyyscky Ql (U)NegativeNEGATIVEBon Secours Mercy HealthClarity (U)SLIGHTLY CLOUDYAbnormalClearBon Secours Mercy HealthColor (U) YellowYellowBon Secours Mercy HealthGlucose Test strip (U) [Mass/Vol]Negative NEGATIVE mg/dLBon Secours Mercy HealthHemoglobin Auto test strip Ql (U)TRACE AbnormalNEGATIVEBon Secours Mercy HealthKetones (U) [Mass/Vol]3+AbnormalNEGATIVE mg/dLBon Secours Mercy HealthLeukocyte esterase Test strip Ql (U)MODAbnormal NEGATIVEBon Secours Mercy HealthNitrite Ql (U)NegativeNEGATIVEBon Secours Mercy HealthpH (U)7.0 [pH]5.0 - 8.0[facility] HealthProtein (U) [Mass/Vol]TRACE AbnormalNEGATIVE mg/dLBon Secours Mercy HealthSpecific gravity (U) [Rel density] 1.0201.005 - 1.030Bon [facility] Mercy HealthUrobilinogen Qn (U)Normal0.0 - 1.0 EU/dLBon Secours Mercy HealthUrinalysis, Routineon 75-24-1337Rkqxgpcvl, SemiQt,UrNegativeNormalNEGMercy St. [facility] Medical CenterComdetroit receiving hospital on above:Performed By: #### LUCIA JUAREZ [facility] #### [facility] [address] [place] [address] Gear Generator Set Up Operator: Noelle Quiros, UrineTRACEAbnormalNEGMerHarborview Medical Centerment on above:Performed By: #### LUCIA JUAREZ [facility] [place] #### [facility] [address] [place] [address] Gear Generator Set Up Operator: KOMAL Quiroslarity (U)SLIGHTLY CLOUDYAbnormalCLEARMercy Wayside Emergency Hospital on above:Performed By: #### LUICA JUAREZ [facility] #### [facility] [address] [place] [address] Gear Generator Set Up Operator: KOMAL Quirosolor (U)YellowNormalYELMerMultiCare Health Comment on above:Performed By: #### LUCIA JUAREZ [facility] #### [facility] [address] [place] [address] Gear Generator Set Up Operator: Charles He MDGlucose Ql (U)NegativeNormalNEGMercy Wayside Emergency Hospital on above:Performed By: #### LUCIA JUAREZ [facility] #### [facility] [address] [place] [address] Gear Generator Set Up Operator: Charles He MDKetones Ql (U)3+ mg/dLAbnormalNEGMercy St. [facility] Medical CenterComdetroit receiving hospital on above:Performed By: #### LUCIA JUAREZ [facility] [place] #### [facility] [address] [place] [address] Gear Generator Set Up Operator: Charles He MDLeukocyte esterase Test strip Ql (U)MODAbnormal NEGMercy Hawkeye HospitalComment on above:Performed By: #### LUCIA JUAREZ [facility] #### [facility] [address] [place] [address] Gear Generator Set Up Operator: Eva Quiros,UrNegativeNormalNEGPremier Health [facility] on above:Performed By: #### LUCIA JUAREZ [facility] #### [facility] [address] [place] [address] Gear Generator Set Up Operator: LIAM Quiros,Ur7.0Msibyl7.0-8.0[facility] Comment on above:Performed By: #### LUCIA JUAREZ [facility] #### [facility] [place] [address] Gear Generator Set Up Operator: Mony Quiros Ql (U)TRACEAbnormalNEGPremier Health [facility] on above:Performed By: #### LUCIA JUAREZ [facility] #### [facility] [address] [place] [address] Gear Generator Set Up Operator: Ausitn Quiros. North English,Ur1.928Apqdoy4.005-1.030[facility] on above:Performed By: #### LUCIA JUAREZ [facility] #### [facility] [address] [place] [address] Gear Generator Set Up Operator: Rajat Quirosgen,UrNormalNormal0.0-1.0[facility] on above:Performed By: #### LUCIA JUAREZ [facility] #### [facility] [address] [place] [address] Gear Generator Set Up Operator: Jesse Quirosalysis,Microon 23-75-2357WkisykytUDXNKHZT AbnormalNONEMeSeattle VA Medical CenterComment on above:Performed By: #### CBC, BMP #### [facility] [address] [place] [address] Gear Generator Set Up Operator: KOMAL Quirosrystals LM Nom (Urine sed)2 TO 5AbnormalNONE Miami Valley HospitalComment on above:Result Comment: TRIPLE PHOSPHATE Performed By: #### CBC, BMP #### [facility] [address] [place] [address] Gear Generator Set Up Operator: Charles He MDEpithelial cells LM Ql (Urine sed)10 TO 20 Normal0-5MerMultiCare HealthComment on above:Performed By: #### CBC, BMP #### [facility] [address] [place] [address] Gear Generator Set Up Operator: Lidia Quiros RBC's2 TO 3Ildfdo5-2Mkmgr [address] [facility] Medical CenterComment on above:Performed By: #### CBC, BMP #### [facility] [address] [place] [address] Gear Generator Set Up Operator: Lidia Quiros WBC's10 TO 26Jewzjp8-8Jzheb [address] [facility] Medical CenterComdetroit receiving hospital on above:Performed By: #### CBC, BMP #### [facility] [address] [place] [address] Gear Generator Set Up Operator: Charles He MDYeastFEWAbnNorwalk Memorial Hospital Comment on above:Performed By: #### CBC, BMP #### [facility] [address] [place] [address] Gear Generator Set Up Operator: Lidia Quiros Preg (Lab)on 73-82-2548OWR ( test) Ql (U)NegativeNEGATIVEBon Secours Mercy HealthComment on above:Specimens with hCG levels near the threshold of the test (25 mIU/mL) may give a negative or indeterminate result. In such cases, another test should be performed with a new specimen in 48-72 hours. If early is suspected clinically in this setting, correlation with quantitative serum b-hCG level is suggested. [facility] CBC WITH AUTO DIFFon 29-77-7582ZRYIDSGNI ABSOLUTE AUTO0.1NOMS HealthcareBasophils/100 WBC (Bld)0.7 %0.2 - 2.0 %NOMS [facility] Eosinophils/100 WBC (Bld)1.6 %0.9 - 7.0 %NOMMissouri Rehabilitation CenterErythrocyte distribution width (RBC) [Ratio]14.0 %11.0 - 15.0 %NOMMissouri Rehabilitation CenterHematocrit (Bld) [Volume fraction]39.0 %36.0 - 48.0 %[facility] Science CenterHemoglobin (Bld) [Mass/Vol]12.8 g/dL 12.0 - 16.0 g/dLSaint Louis University Health Science CenterIMMATURE GRANULOCYTES ABS AUTO0.01NOMS [facility] Immature granulocytes/100 WBC (Bld)0.1 %0.0 - 0.5 %NOMMissouri Rehabilitation CenterLYMPHOCYTES ABSOLUTE AUTO2.2NOMS [facility] HospitalLymphocytes/100 WBC (Bld)29.3 %20.5 - 60.0 %[facility] CenterMCH (RBC) [Entitic mass]28.3 pg26.7 - 34.0 pgNOMS [facility] Hospit[facility]wood Medical CenterHC (RBC) [Mass/Vol]32.8 g/dL29.9 - 35.2 g/dLSaint Luke's HospitalV (RBC) [Entitic vol]86.1 fL 81.0 - 99.0 fLNOCooper County Memorial HospitalMONOCYTES ABSOLUTE AUTO0.7NOMS [facility] Monocytes/100 WBC (Bld)9.1 %1.7 - 12.0 %NOMS [facility] HospitalNEUTROPHILS ABSOLUTE AUTO 4.4NOMS HealthcareNeutrophils/100 WBC (Bld)59.2 %43.0 - 75.0 %[facility] Platelet mean volume (Bld) [Entitic vol]10.1 fL9.5 - 13.5 fLNOCooper County Memorial HospitalTBH EO #0.1NOMS HealthcareTBH [id number] HealthcareTBH RBC4.53NOMS HealthcareTBH WBC 7.4NOMS HealthcareCLINISYNCNOMS HealthcareLon 79-09-1968QThzawvrf: [id number] Received: 03/05/24 Status: JOSE Chauhanroseanne Num: [id number] Spec Type: Surgical Subm Dr: Bennett Belle Tissues: A Fallopian Tube - Sterilization (JENA FAL TUBES) Procedures: HE/2, Gross/Micro L2 Age/ Patient Sex Location Account Attending Physician HannaCarrie N 23/F LABELL [id number] Bennett Belle SPEC NUM: [id number] RECD: 03/05/24 STATUS: JOSE BRANDT NUM: [id number] BEV: 03/02/[address]: Bennett Belle ENTERED: 03/05/[address] [facility] [address]: Maria Luisa,Gregg SPEC TYPE: Surgical DEPT: FAVIOLA ANDRE ENTERED BY: [id number] RECV BY: [id number] ORDERED: HE/2, Gross/Micro L2 ORDERED: HE/2, Gross/Micro L2 Pathological Diagnosis Bilateral fallopian tubes, bilateral tubal ligation: - Completely transected bilateral fallopian tubes with no significant histopathology. Clinical Information Request for sterilization Gross Description Specimen is received in formalin with the patient's name and bilateral fallopian tube and consists of two fimbriated fallopian tubes each measuring 6.5 cm in length with a diameter of 1.0 cm. The specimen is serially sectioned. Road Tester sections are submitted as follows: A1: first fallopian tube A2: second fallopian tube Microscopic Description Microscopic examination is performed. Specimen: [id number] Received: 03/05/24 Status: JOSE Brandt Num: [id number] Spec Type: Surgical Subm Dr: Bennett Belle Tissues: A Fallopian Tube - Sterilization (JENA FAL TUBES) Procedures: HE/2, Gross/Micro L2 Patient: Carrie Bernstein Yi [id number] (Continued) Specimen: [id number] Received: 03/05/24 (Continued) Signed (signature on file) Juan Willett MD 03/21/24 1600 Specimen: [id number] Received: 03/05/24 Status: JOSE Brandt Num: [id number] Spec Type: Surgical Subm Dr: Bennett Belle Tissues: A Fallopian Tube - Sterilization (JENA FAL TUBES) Procedures: Sarahi CARLISLE L2 Patient: Carrie Bernstein Yi [id number] (Continued) Specimen: [id number] Received: 03/05/24 (Continued) CPT Codes 72687 Specimen: [id number] Received: 03/05/24 Status: JOSE Brandt Num: [id number] Spec Type: Surgical Subm Dr: Bennett Belle Tissues: A Fallopian Tube - Sterilization (JENA FAL TUBES) Procedures: HE/2, Cleo/Alyce L2 Patient: Carrie Bernstein [id number] (Continued) Signed (signature on file) Juan Willett MD 03/21/24 [facility]NeenahNoAtrium Health Cleveland Physician GroupXR CHEST 2Von 59-61-8542[place]omB[place], [place] [address] XRay Report Signed Patient: CARRIE BERNSTEIN MR#: [id number] : 2000 Acct:[id number] Age/Sex: 23 / F ADM Date: 02/22/24 Loc: [facility] Attending Dr: Bennett Belle D.O. Ordering Physician: Bennett Belle D.O. Date of Service: 02/22/24 Procedure(s): XR chest 2V Accession Number(s): [id number] cc: JULIA MCGUIRE ; Bennett Belle D.O. [address] [address] Patient Name: CARRIE BERNSTEIN MRN: [id number] date: 2000 Sex: F Assigned Patient Location: [facility] Current Patient Location: [facility] Accession/Order Number: [id number] Exam Date: 02/22/2024 15:40 Report Date: 02/22/2024 16:24 At the request of: BENNETT BELLE Procedure: XR chest 2V EXAM: XR chest 2V HISTORY: Preop exam COMPARISON: None. TECHNIQUE: Upright PA and lateral chest x-ray FINDINGS: The heart is not enlarged and the vasculature is not distended. No acute infiltrate, effusion or pneumothorax is identified. The osseous structures are grossly intact. XR/XR chest 2V IMPRESSION: No acute infiltrate or evidence of cardiac decompensation. Electronically authenticated by: MARISOL MARIE Date: 02/22/2024 16:24 Dictated By: Marisol Marie M.D. Signed By: 02/22/241625 DD/ 23 TD/TT: Second Rigger:Magalys Merino MD - 02/22/2024 [place] [address] XRay Report Signed Patient: CARRIE BERNSTEIN MR#: [id number] : 2000 Acct:[id number] Age/Sex: 23 / F ADM Date: 02/22/24 Loc: [facility] Attending Dr: Bennett Belle D.O. Ordering Physician: Bennett Belle D.O. Date of Service: 02/22/24 Procedure(s): XR chest 2V Accession Number(s): [id number] cc: JULIA MCGUIRE ; Bennett Belle D.O. The [place] [address] Patient Name: CARRIE BERNSTEIN MRN: [id number] date: 2000 Sex: F Assigned Patient Location: [facility] Current Patient Location: [facility] Accession/Order Number: [id number] Exam Date: 02/22/2024 15:40 Report Date: 02/22/2024 16:24 At the request of: BENNETT BELLE Procedure: XR chest 2V EXAM: XR chest 2V HISTORY: Preop exam COMPARISON: None. TECHNIQUE: Upright PA and lateral chest x-ray FINDINGS: The heart is not enlarged and the vasculature is not distended. No acute infiltrate, effusion or pneumothorax is identified. The osseous structures are grossly intact. XR/XR chest 2V IMPRESSION: No acute infiltrate or evidence of cardiac decompensation. Electronically authenticated by: MARISOL MARIE Date: 02/22/2024 16:24 Dictated By: Marisol Marie M.D. Signed By: 02/22/241625 DD/ 23 TD/TT: Second Rigger: ABIMAEL HealthcareRadiology Study observation (narrative)NOM HealthcareXR CHEST 2V Ordered By: Radiologist Radiology on [id number] Healthcare Work Phone: URINALYSIS, REFLEX MICROSCOPICon [id number] Ql (U)NegativeNegativeChama ClinicClarity (Unsp spec)ClearClearCleveland ClinicColor (U)YellowYellowPromedica Toledo HospitalGlucose Test strip (U) [Mass/Vol] NegativeNegativePromedica Toledo HospitalHemoglobin Ql (U)NegativeNegativeChama ClinicInterpretation and review of laboratory resultsNormalCst. charles hospitaland Clinic Ketones Ql (U)NegativeNegativePromedica Toledo HospitalLeukocyte esterase Test strip Ql (U)NegativeNegativeChama ClinicNitrite Ql (U)NegativeNegativeChama ClinicpH (U)7.0 [pH]NINF - 8.5Cleveland ClinicProtein (U) [Mass/Vol]Negative NegativeCleveland Clinic Marymount Hospitalpecific gravity (U) [Rel density]1.0121.005 - 1.030 [facility] Toledo HospitalUrobilinogen Ql (U)0.2 EU/dL0.2-1.0 EU/dLPromedica Toledo HospitalThis test was developed and its performance characteristics determined by [facility]'s [facility] Pathology and Laboratory Medicine [place] ([facility]). It has not been cleared or approved by the FDA. [facility] is regulated under CLIA as qualified to perform high-complexity testing. Thistest is used for clinical purposes. It should not be regarded as investigational or for research. [facility] North HospitalIMMUNOGLOBULIN Mike 52-27-4099JgC [Mass/Vol]881 mg/dL700 - 1600 mg/dLPromedica Toledo HospitalIMMUNOGLOBULIN Mon 69-41-1098YeG [Mass/Vol] 239 mg/eRBtpz52 - 230 mg/dLPromedica Toledo HospitalIgG [Mass/Vol]on 12-06-2023 Interpretation and review of laboratory resultsNormalCst. charles hospitaland ClinicIgM [Mass/Vol]on 56-95-3493Dyysgilzntjitt and review of laboratory resultsAbnormal [facility]edo HospitalNo Panel Informationon 34-50-2226Hqxvlhwig ClinicMR Brain WO and W contrast Janeen 18-10-4628GROHOOQVNE: Normal MRI of the brain. No evidence of demyelinating disease. Transcribed Using Voice Recognition Transcribe Date/Time: Oct 25 2023 4:02P Dictated by: MARIO MALAGON MD This examination was interpreted and the report reviewed and electronically signed by: MARIO MALAGON MD on Oct 25 2023 4:05PM [facility] [place] [facility]* * *Final Report* * * DATE OF EXAM: Oct 25 2023 3:35PM [facility] 0295 - MRI BRAIN WO/W IVCON / [...] orbits and extracranial soft tissues are unremarkable. [facility] RADIOLOGYProvider, [facility] Imaging [place] - 10/25/2023 * * *Final Report* * * DATE OF EXAM: Oct 25 2023 3:35PM [facility] 0295 - MRI BRAIN WO/W IVCON / [...] MALAGON MD on Oct 25 2023 4:05PM [facility] Brain WO and W contrast IVOrdered By: Ccf Provider on [id number] ClinicMR Cervical spine WO and W contrast Janeen 10-25-2023* * *Final Report* * * DATE OF EXAM: Oct 25 2023 3:35PM [facility] 0298 - MRI CERVICAL SPINE WO/W IVCON [...] No substantial canal or foraminal stenosis identified. [facility] RADIOLOGYProvider, [facility] Imaging [place] - 10/25/2023 * * *Final Report* * * DATE OF EXAM: Oct 25 2023 3:35PM [facility] 0298 - MRI CERVICAL SPINE WO/W IVCON [...] MALAGON MD on Oct 25 2023 4:18PM [facility] Thoracic spine WO and W contrast Janeen 10-25-2023* * *Final Report* * * DATE OF EXAM: Oct 25 2023 3:35PM [facility] 0326 - MRI THORACIC SPINE WO/W IVCON [...] No substantial canal or foraminal stenosis identified. [facility] RADIOLOGYProvider, [facility] Imaging [place] - 10/25/2023 * * *Final Report* * * DATE OF EXAM: Oct 25 2023 3:35PM [facility] 0326 - MRI THORACIC SPINE WO/W IVCON [...] MD on Oct 25 2023 4:18PM EST [facility] BRAIN WO/W IVCONon [id number] BRAIN WO/W IVCON* * *Final Report* * * DATE OF EXAM: Oct 25 2023 3:35PM [facility] 0295 - MRI BRAIN WO/W IVCON / [...] MD on Oct 25 2023 4:05PM EST [id number]nce City HospitalI CERVICAL SPINE WO/W IVCONon 18-33-1582EPO CERVICAL SPINE WO/W IVCON* * *Final Report* * * DATE OF [...] MD on Oct 25 2023 4:18PM EST [id number] Health System THORACIC SPINE WO/W IVCONon 70-60-7273YVT THORACIC SPINE WO/W IVCON* * *Final Report* * * DATE OF EXAM: Oct 25 2023 3:35PM [facility] 0326 - MRI THORACIC SPINE WO/W IVCON [...] MD on Oct 25 2023 4:18PM EST [id number] Luke's [facility] Panel Informationon [id number]: Compared to most recent external facility MRI [...] MALAGON MD on Oct 25 2023 4:18PM [facility] [place] RADIOLOGYRadiology Study observation (narrative)[facility] Panel InformationOrdered By: Ccf Provider on [id number] County Hospital Metabolic Panelon 97-06-4759Tyecy gap [Moles/Vol]9 mmol/L9 - 17 mmol/LBON [facility]ETTER[facility]ALTH BEHAVIORAL MEDICAL CENTERCalcium [Mass/Vol]9.0 mg/dL8.6 - 10.4 mg/dLBON KETTER[facility]ALTH BEHAVIORAL MEDICAL CENTERChloride [Moles/Vol]103 mmol/L98 - 107 mmol/LBON KETTERING HEALTH BEHAVIORAL MEDICAL CENTERCO2 [Moles/Vol]27 mmol/L20 - 31 mmol/LBON [facility]ET[facility]ALTH BEHAVIORAL MEDICAL CENTERCreatinine [Mass/Vol] 0.9 mg/dL0.5 - 0.9 mg/dLBON KETTERING HEALTH BEHAVIORAL MEDICAL CENTEREst, Glom Filt Rate- PINFBON KETTERING HEALTH BEHAVIORAL MEDICAL CENTERComment on above: These results are not intended [...] therapy that affects renal tubular secretion. Glucose [Mass/Vol]136 mg/aBKnhp03 - 99 mg/dLBON [facility] Interpretation and review of laboratory resultsAbnormalRIVERSIDE SHORE MEMORIAL [facility]PITAL Potassium [Moles/Vol]4.2 mmol/L3.7 - 5.3 mmol/LBON [facility]ETTER[facility]ALTH BEHAVIORAL MEDICAL CENTERSodium [Moles/Vol]139 mmol/L135 - 144 mmol/LBON [facility]ET[facility]ALTH BEHAVIORAL MEDICAL CENTERUrea nitrogen [Mass/Vol]13 mg/dL6 - 20 mg/dLBON KETTERING HEALTH BEHAVIORAL MEDICAL CENTERUrea nitrogen/Creatinine [Mass ratio]14 mg/mg9 - 20B[facility]ALL RIVER HOSPITALBasic Metabolic Profon 14-64-8264Zmkma gap [Moles/Vol]9 mmol/LNormal9-17[facility] HospitalComment on above:Performed By: #### CBC, BMP #### [facility] [address] [place] [address] Gear Generator Set Up Operator: Charles He MDBUN/CRE Lpsma28Etdjua4-64JvztzMiami Valley HospitalComment on above:Performed By: #### CBC, BMP #### [facility] [address] [place] [address] Gear Generator Set Up Operator: KOMAL Quirosalcium [Mass/Vol]9.0 mg/dLNormal8.6-10.4[facility] HospitalComdetroit receiving hospital on above:Performed By: #### CBC, BMP #### [facility] [address] [place] [address] Gear Generator Set Up Operator: KOMAL Quiroshloride [Moles/Vol]103 mmol/WYstjhk41-179PkxyjMiami Valley HospitalComdetroit receiving hospital on above:Performed By: #### CBC, BMP #### [facility] [address] [place] [address] Gear Generator Set Up Operator: KOMAL QuirosO2 [Moles/Vol]27 mmol/NGgeyfq85-04AfdzuMiami Valley HospitalComdetroit receiving hospital on above:Performed By: #### CBC, BMP #### [facility] [address] [place] [address] Gear Generator Set Up Operator: KOMAL Quirosreatinine [Mass/Vol]0.9 mg/dLNormal0.5-0.9 [facility] on above:Performed By: #### CBC, BMP #### [facility] [address] [place] [address] Gear Generator Set Up Operator: Charles He MDGFR/1.73 sq M.predicted among non-blacks MDRD (S/P/Bld) [Vol rate/Area]mL/min/{1.73_m2}Normal>60[facility] HospitalComdetroit receiving hospital on above:Result Comment: These results are not intended for [...] or following therapy that affects renal tubular secretion.Performed By: #### CBC, BMP #### [facility] [address] [facility] [place] [address] Gear Generator Set Up Operator: Charles He MDGlucose [Mass/Vol]136 mg/hUSvsm25-85NellxPeaceHealthComment on above:Performed By: #### CBC, BMP #### [facility] [address] [place] [address] Gear Generator Set Up Operator: LIAM Quirosotassium [Moles/Vol]4.2 mmol/LNormal3.7-5.3 [facility] HospitalComdetroit receiving hospital on above:Performed By: #### CBC, BMP #### [facility] [address] [place] [address] Gear Generator Set Up Operator: LIZ Quirosodium [Moles/Vol]139 mmol/BEtwnuu754-842WytbrMiami Valley HospitalComdetroit receiving hospital on above:Performed By: #### CBC, BMP #### [facility] [address] [place] [address] Gear Generator Set Up Operator: Charles He MDUrea nitrogen [Mass/Vol]13 mg/dLNormal6-20[facility] HospitalComdetroit receiving hospital on above:Performed By: #### CBC, BMP #### [facility] [address] [place] [address] Gear Generator Set Up Operator: Tyler Quiros 33-73-4233Qjzstoqrqog distribution width (RBC) [Ratio]14.4 %11.8 - 14.4 %B[facility] BEHAVIORAL MEDICAL CENTERHematocrit (Bld) [Volume fraction]38.0 %36.3 - 47.1 %B[facility]IOR[facility] MEDICAL CENTERHemoglobin (Bld) [Mass/Vol] 11.8 g/dLLow11.9 - 15.1 g/dLBON KET[facility]ALTH BEHAVIORAL MEDICAL CENTERInterpretation and review of laboratory resultsAbnormalBON [facility] (RBC) [Entitic mass]28.1 pg25.2 - 33.5 pgCENTRA LYNCHBURG GENERAL HOSPITALHC (RBC) [Mass/Vol]31.1 g/dL28.4 - 34.8 g/dLBON SALEM CITY HOSPITALV (RBC) [Entitic vol]90.5 fL82.6 - 102.9 fL [facility]ORIAL HOSPITALNucleated RBC/100 WBC (Bld) [Ratio]0.0 %0.0 per 100 WBC [facility]ORIAL HOSPITALPlatelet mean volume (Bld) [Entitic vol]10.9 fL8.1 - 13.5 fLRIVERSIDE SHORE MEMORIAL HOSPITALPlatelets (Bld) [#/Vol]221 10*3/uLRIVERSIDE SHORE MEMORIAL HOSPITALRBC (Bld) [#/Vol]4.20 10*6/uL3.95 - 5.11 m/uLRIVERSIDE SHORE MEMORIAL HOSPITALWBC other (Bld) [#/Vol]6.6[facility] Erythrocyte distribution width (RBC) [Ratio]14.4 %Mfhqmv75.8-14.4[facility] [address] Michaels Medical CenterComment on above:Performed By: #### CBC, BMP #### [facility] [address] [place] [address] Gear Generator Set Up Operator: Charles He MDHematocrit (Bld) [Volume fraction]38.0 %Normal 36.3-47.1Mer[facility] Michaels Medical CenterComment on above:Performed By: #### CBC, BMP #### [facility] [address] [place] [address] Gear Generator Set Up Operator: Charles He MDHemoglobin (Bld) [Mass/Vol]11.8 g/dLLow 11.9-15.1[address] Michaels Medical CenterComment on above:Performed By: #### CBC, BMP #### [facility] [address] [facility] [place] [address] Gear Generator Set Up Operator: DANIEL QuirosCH (RBC) [Entitic mass]28.1 azNcjxoc71.2-33.5 [facility] HospitalComdetroit receiving hospital on above:Performed By: #### CBC, BMP #### [facility] [place] [address] Gear Generator Set Up Operator: BIRGIT QuirosC (RBC) [Mass/Vol]31.1 g/nVZykhrl65.4-34.8 [facility] HospitalComdetroit receiving hospital on above:Performed By: #### CBC, BMP #### [facility] [address] [place] [address]. [place] [address] Gear Generator Set Up Operator: DANIEL QuirosCV (RBC) [Entitic vol]90.5 rODsnjdp89.6-102.9 [facility] HospitalComdetroit receiving hospital on above:Performed By: #### CBC, BMP #### [facility] [address] [place] [address]. [place] [address] Gear Generator Set Up Operator: HEVER Quiros Automated0.0 per 100 WBCNormal0.0[facility] HospitalComdetroit receiving hospital on above:Performed By: #### CBC, BMP #### [facility] [address] [place] [address]. [place] [address] Gear Generator Set Up Operator: Gino Quiros mean volume (Bld) [Entitic vol]10.9 fL Normal8.1-13.5[facility] HospitalComdetroit receiving hospital on above:Performed By: #### CBC, BMP #### [facility] [address] [place] [address]. [place] [address] Gear Generator Set Up Operator: Orly Quirosteconsuelo (Bld) [#/Vol]221 10*3/dWUofotw551-665 [facility] HospitalComdetroit receiving hospital on above:Performed By: #### CBC, BMP #### [facility] [address] [place] [address] Gear Generator Set Up Operator: KRYSTLE Quiros (d) [#/Vol]4.20 10*6/uLNormal3.95-5.11 [facility] HospitalComdetroit receiving hospital on above:Performed By: #### CBC, BMP #### [facility] [address] [place] [address] Gear Generator Set Up Operator: HERMILO Quiros (selwyn) [#/Vol]6.6 10*3/uLNormal3.5-11.3MMorrow County Hospital on above:Performed By: #### CBC, BMP #### [facility] [facility] [place] [address] Gear Generator Set Up Operator: Marion Quiros Metabolic Profon 92-83-5451Xvetl gap [Moles/Vol]10 mmol/LNormal9-17[facility] HospitalComdetroit receiving hospital on above:Performed By: #### ELVIA, BMP #### [facility] [address] [facility] [place] [address] Gear Generator Set Up Operator: JODI QuirosN/CRE Cixuv20Buwgfu2-84Yzikr [address] Anne HospitalComdetroit receiving hospital on above:Performed By: #### CBC, BMP #### [facility] [address] [facility] [place] [address] Gear Generator Set Up Operator: KOMAL Quirosalcium [Mass/Vol]8.8 mg/dLNormal8.6-10.4[facility] on above:Performed By: #### CBC, BMP #### [facility] [address] [facility] [place] [address] Gear Generator Set Up Operator: KOMAL Quiroshloride [Moles/Vol]102 mmol/YEjxyob70-009YkiayMiami Valley HospitalComment on above:Performed By: #### CBC, BMP #### [facility] [address] [facility] [place] [address] Gear Generator Set Up Operator: KOMAL QuirosO2 [Moles/Vol]26 mmol/CGszrdu83-71SdodeMiami Valley HospitalComdetroit receiving hospital on above:Performed By: #### CBC, BMP #### [facility] [address] [facility] [place] [address] Gear Generator Set Up Operator: KOMAL Quirosreatinine [Mass/Vol]0.9 mg/dLNormal0.5-0.9 [facility] HospitalComdetroit receiving hospital on above:Performed By: #### ELVIA, BMP #### [facility] [address] [place] [address]. [place] [address] Gear Generator Set Up Operator: Charles He MDGFR/1.73 sq M.predicted among non-blacks MDRD (S/P/Bld) [Vol rate/Area]mL/min/{1.73_m2}Normal>60[facility] HospitalComdetroit receiving hospital on above:Result Comment: These results are not intended for [...] or following therapy that affects renal tubular secretion.Performed By: #### CBC, BMP #### [facility] [address] [facility] [place] [address] Gear Generator Set Up Operator: Charles He MDGlucose [Mass/Vol]170 mg/hOWvxv11-40Akquy St[address] [facility] Medical CenterComdetroit receiving hospital on above:Performed By: #### CBC, BMP #### [facility] [address] [facility] [place] [address] Gear Generator Set Up Operator: LIAM Quirosotassium [Moles/Vol]4.0 mmol/LNormal3.7-5.3 [facility] HospitalComment on above:Performed By: #### CBC, BMP #### [facility] [address] [place] [address] Gear Generator Set Up Operator: LIZ Quirosodium [Moles/Vol]138 mmol/JBhtcno243-151LisamMiami Valley HospitalComment on above:Performed By: #### CBC, BMP #### [facility] [address] [place] [address] Gear Generator Set Up Operator: Charles He MDUrea nitrogen [Mass/Vol]12 mg/dLNormal6-20[facility] HospitalComment on above:Performed By: #### CBC, BMP #### [facility] [address] [place] [address] Gear Generator Set Up Operator: Tyler Quiros 07-72-1635Vptojwuzytz distribution width (RBC) [Ratio]14.6 %High11.8-14.4MerMultiCare HealthComment on above: Performed By: #### CBC, BMP #### [facility] [address] [place] [address] Gear Generator Set Up Operator: Charles He MDHematocrit (Bld) [Volume fraction]40.3 %Normal 36.3-47.1Mer[facility] St[address] Michaels Medical CenterComment on above:Performed By: #### CBC, BMP #### [facility] [address] [place] [address] Gear Generator Set Up Operator: Charles He MDHemoglobin (Bld) [Mass/Vol]12.5 g/dLNormal 11.9-15.1[address] Michaels Medical CenterComment on above:Performed By: #### CBC, BMP #### [facility] [address] [place] [address] Gear Generator Set Up Operator: BIRGIT Quiros (RBC) [Entitic mass]27.8 odCuzkwi24.2-33.5 [facility] HospitalComdetroit receiving hospital on above:Performed By: #### CBC, BMP #### [facility] [address] [place] [address] Gear Generator Set Up Operator: BIRGTI QuirosC (RBC) [Mass/Vol]31.0 g/pCXyermc84.4-34.8 [facility] HospitalComdetroit receiving hospital on above:Performed By: #### CBC, BMP #### [facility] [address] [place] [address] Gear Generator Set Up Operator: MARY Quiros (RBC) [Entitic vol]89.8 wKPrcopq14.6-102.9 [facility] HospitalComdetroit receiving hospital on above:Performed By: #### ELVIA, BMP #### [facility] [address] [place] [address] Gear Generator Set Up Operator: FANNY QuirosBC Automated0.0 per 100 WBCNormal0.0[facility] HospitalComdetroit receiving hospital on above:Performed By: #### CBC, BMP #### [facility] [address] [place] [address] Gear Generator Set Up Operator: Gino Quiros mean volume (Bld) [Entitic vol]10.5 fL Normal8.1-13.5[facility] HospitalComdetroit receiving hospital on above:Performed By: #### CBC, BMP #### [facility] [address] [place] [address] Gear Generator Set Up Operator: Justina Quiros (Bld) [#/Vol]223 10*3/eELaytgw585-934 [facility] HospitalComment on above:Performed By: #### CBC, BMP #### [facility] [address] [facility] [place] [address] Gear Generator Set Up Operator: KRYSTLE Quiros (d) [#/Vol]4.49 10*6/uLNormal3.95-5.11 [facility] HospitalComment on above:Performed By: #### CBC, BMP #### [facility] [address] [facility] [place] [address] Gear Generator Set Up Operator: HERMILO Quiros (d) [#/Vol]6.7 10*3/uLNormal3.5-11.3Mcommunity regional medical centery [address] Michaels Medical CenterComment on above:Performed By: #### CBC, BMP #### [facility] [facility] [place] [address] Gear Generator Set Up Operator: Marion Quiros Metabolic Profon 69-46-3954Xzqzb gap [Moles/Vol]8 mmol/LLow9-17[facility] HospitalComment on above:Performed By: #### BMP, CBC #### [facility] [address] [place] [address]. [place] [address] Gear Generator Set Up Operator: TWAN Quiros/CRE Cfrid19Xind9-48CzcrpMiami Valley Hospital Comment on above:Performed By: #### BMP, CBC #### [facility] [place] [address] Gear Generator Set Up Operator: KOMAL Quirosalcium [Mass/Vol]9.0 mg/dLNormal8.6-10.4[facility] HospitalComment on above:Performed By: #### BMP, CBC #### [facility] [address] [place] [address] [place] [address] Gear Generator Set Up Operator: KOMAL Quiroshloride [Moles/Vol]106 mmol/YYarzdh92-967DltygPremier Health [facility] on above:Performed By: #### BMP, CBC #### [facility] [address] [facility] [place] [address] Gear Generator Set Up Operator: KOMAL QuirosO2 [Moles/Vol]26 mmol/KDawxqp61-16HixqiMiami Valley HospitalComdetroit receiving hospital on above:Performed By: #### BMP, CBC #### [facility] [address] [place] [address]. [place] [address] Gear Generator Set Up Operator: KOMAL Quirosreatinine [Mass/Vol]0.8 mg/dLNormal0.5-0.9 [facility] on above:Performed By: #### BMP, CBC #### [facility] [address] [place] [address]. [place] [address] Gear Generator Set Up Operator: Charles He MDGFR/1.73 sq M.predicted among non-blacks MDRD (S/P/Bld) [Vol rate/Area]mL/min/{1.73_m2}Normal>60[facility] HospitalComdetroit receiving hospital on above:Result Comment: These results are not intended for [...] or following therapy that affects renal tubular secretion.Performed By: #### BMP, CBC #### [facility] [address] [facility] [place] [address] Gear Generator Set Up Operator: Charles He MDGlucose [Mass/Vol]118 mg/qMRhjm55-41Vpcme St[address] [facility] Medical CenterComdetroit receiving hospital on above:Performed By: #### BMP, CBC #### [facility] [address] [place] [address] Gear Generator Set Up Operator: LIAM Quirosotassium [Moles/Vol]3.9 mmol/LNormal3.7-5.3 [facility] HospitalComdetroit receiving hospital on above:Performed By: #### BMP, CBC #### [facility] [address] [place] [address] Gear Generator Set Up Operator: LIZ Quirosodium [Moles/Vol]140 mmol/GJrkndj579-932AvlidMiami Valley HospitalComdetroit receiving hospital on above:Performed By: #### BMP, CBC #### [facility] [address] [place] [address] Gear Generator Set Up Operator: Charles He MDUrea nitrogen [Mass/Vol]17 mg/dLNormal6-20[facility] HospitalComment on above:Performed By: #### BMP, CBC #### [facility] [address] [place] [address] Gear Generator Set Up Operator: Tyler Quiros 86-69-6374Gphtlbazziq distribution width (RBC) [Ratio]14.7 %High11.8-14.4[facility] HospitalComdetroit receiving hospital on above: Performed By: #### BMP, CBC #### [facility] [address] [place] [address] Gear Generator Set Up Operator: Charles He MDHematocrit (Bld) [Volume fraction]39.6 %Normal 36.3-47.1MPeaceHealthComdetroit receiving hospital on above:Performed By: #### BMP, CBC #### [facility] [address] [place] [address] Gear Generator Set Up Operator: Charles He MDHemoglobin (Bld) [Mass/Vol]12.6 g/dLNormal 11.9-15.1MPeaceHealthComment on above:Performed By: #### BMP, CBC #### [facility] [address] [facility] [place] [address] Gear Generator Set Up Operator: DANIEL QuirosCH (RBC) [Entitic mass]27.8 zeDchdfp97.2-33.5 [facility] HospitalComdetroit receiving hospital on above:Performed By: #### BMP, CBC #### [facility] [address] [facility] [place] [address] Gear Generator Set Up Operator: BIRGIT QuirosC (RBC) [Mass/Vol]31.8 g/zOFjzzyw69.4-34.8 [facility] HospitalComdetroit receiving hospital on above:Performed By: #### BMP, CBC #### [facility] [address] [place] [address]. [place] [address] Gear Generator Set Up Operator: DANIEL QuirosCV (RBC) [Entitic vol]87.2 tDMgbcgo91.6-102.9 [facility] HospitalComdetroit receiving hospital on above:Performed By: #### BMP, CBC #### [facility] [address] [place] [address]. [place] [address] Gear Generator Set Up Operator: Cahrles He MDNRBC Automated0.0 per 100 WBCNormal0.0[facility] on above:Performed By: #### BMP, CBC #### [facility] [address] [place] [address]. [place] [address] Gear Generator Set Up Operator: Orly Quirostelet mean volume (Bld) [Entitic vol]10.7 fL Normal8.1-13.5[facility] HospitalComment on above:Performed By: #### BMP, CBC #### [facility] [address] [place] [address]. [place] [address] Gear Generator Set Up Operator: Orly Quirostelets (Bld) [#/Vol]226 10*3/kPOooabm819-520 [facility] on above:Performed By: #### BMP, CBC #### [facility] [address] [facility] [place] [address] Gear Generator Set Up Operator: HUDSON QuirosBC (Bld) [#/Vol]4.54 10*6/uLNormal3.95-5.11 [facility] on above:Performed By: #### BMP, CBC #### [facility] [address] [place] [address] Gear Generator Set Up Operator: JEFF QuirosBC (Bld) [#/Vol]6.4 10*3/uLNormal3.5-11.3[facility] on above:Performed By: #### BMP, CBC #### [facility] [place] [address] Gear Generator Set Up Operator: Tyler Quiros 43-57-3097Rmlvzxizlbt distribution width (RBC) [Ratio]14.8 %High11.8-14.4[facility] on above: Performed By: #### CBC, CP #### [facility] [address] [place] [address]. [place] [address] Gear Generator Set Up Operator: Charles He MDHematocrit (Bld) [Volume fraction]37.5 %Normal 36.3-47.1[facility]Com[facility] on above:Performed By: #### CBC, CP #### [facility] [place] [address] Gear Generator Set Up Operator: Charles He MDHemoglobin (Bld) [Mass/Vol]12.3 g/dLNormal 11.9-15.1MPeaceHealthComment on above:Performed By: #### CBC, CP #### [facility] [address] [facility] [place] [address] Gear Generator Set Up Operator: DANIEL QuirosCH (RBC) [Entitic mass]28.3 zvFrbbpb47.2-33.5 [facility] on above:Performed By: #### CBC, CP #### [facility] [address] [facility] [place] [address] Gear Generator Set Up Operator: BIRGIT QuirosC (RBC) [Mass/Vol]32.8 g/pSPwncyq59.4-34.8 [facility] on above:Performed By: #### CBC, CP #### [facility] [address] [place] [address]. [place] [address] Gear Generator Set Up Operator: DANIEL QuirosCV (RBC) [Entitic vol]86.2 rBCzhxkk95.6-102.9 [facility] on above:Performed By: #### CBC, CP #### [facility] [address] [place] [address]. [place] [address] Gear Generator Set Up Operator: FANNY QuirosBC Automated0.0 per 100 WBCNormal0.0[facility] on above:Performed By: #### CBC, CP #### [facility] [place] [address] Gear Generator Set Up Operator: Orly Quirostelet mean volume (Bld) [Entitic vol]10.4 fL Normal8.1-13.5[facility] on above:Performed By: #### CBC, CP #### [facility] [address] [place] [address]. [place] [address] Gear Generator Set Up Operator: Justina Quiros (d) [#/Vol]218 10*3/nXFunlqo354-365 [facility] on above:Performed By: #### CBC, CP #### [facility] [address] [place] [address] Gear Generator Set Up Operator: KRYSTLE Quiros (d) [#/Vol]4.35 10*6/uLNormal3.95-5.11 [facility] on above:Performed By: #### ELVIA, CP #### [facility] [address] [facility] [place] [address] Gear Generator Set Up Operator: HERMILO Quiros (d) [#/Vol]7.2 10*3/uLNormal3.5-11.3MPeaceHealthComment on above:Performed By: #### CBC, CP #### [facility] [address] [facility] [place] [address] Gear Generator Set Up Operator: KOMAL Quirosomp Metabolic Profon 71-66-3029Zcaibat [Mass/Vol]3.7 g/dLNormal3.5-5.2MPeaceHealthComdetroit receiving hospital on above:Performed By: #### CBC, CP #### [facility] [place] [address] Gear Generator Set Up Operator: Taisha Quiroskaline Phos63 U/TRnmxmf24-121RwfqxMiami Valley HospitalComdetroit receiving hospital on above:Performed By: #### CBC, CP #### [facility] [place] [address] Gear Generator Set Up Operator: Charles He MDALT [Catalytic activity/Vol]6 U/LNormal5-33 [facility] on above:Performed By: #### CBC, CP #### [facility] [address] [facility] [place] [address] Gear Generator Set Up Operator: Charles He MDAnion gap [Moles/Vol]8 mmol/LLow9-17MerMultiCare HealthComment on above:Performed By: #### CBC, CP #### [facility] [address] [place] [address]. [place] [address] Gear Generator Set Up Operator: Charles He MDAST [Catalytic activity/Vol]7 U/LNormal<32MerMultiCare HealthComment on above:Performed By: #### CBC, CP #### [facility] [address] [place] [address]. [place] [address] Gear Generator Set Up Operator: Charles He MDBilirubin [Mass/Vol]0.1 mg/dLLow0.3-1.2[facility]aels Medical CenterComment on above:Performed By: #### CBC, CP #### [facility] [address] [place] [address]. [place] [address] Gear Generator Set Up Operator: Charles He MDBUN/CRE Cfloi30Hhpj2-33MkpfaMiami Valley Hospital Comment on above:Performed By: #### CBC, CP #### [facility] [address] [place] [address]. [place] [address] Gear Generator Set Up Operator: KOMAL Quirosalcium [Mass/Vol]8.9 mg/dLNormal8.6-10.4MerMultiCare HealthComment on above:Performed By: #### CBC, CP #### [facility] [address] [place] [address]. [place] [address] Gear Generator Set Up Operator: KOMAL Quiroshloride [Moles/Vol]107 mmol/KMpmfnc08-475KffpnMultiCare HealthComment on above:Performed By: #### CBC, CP #### [facility] [address] [facility] [place] [address] Gear Generator Set Up Operator: KOMAL QuirosO2 [Moles/Vol]24 mmol/LItmcdm84-69NxulbMiami Valley HospitalComdetroit receiving hospital on above:Performed By: #### CBC, CP #### [facility] [address] [facility] [place] [address] Gear Generator Set Up Operator: KOMAL Quirosreatinine [Mass/Vol]0.8 mg/dLNormal0.5-0.9 [facility] on above:Performed By: #### ELVIA, ABELINO #### [facility] [address] [place] [address]. [place] [address] Gear Generator Set Up Operator: Charles He MDGFR/1.73 sq M.predicted among non-blacks MDRD (S/P/Bld) [Vol rate/Area]mL/min/{1.73_m2}Normal>60[facility]Com[facility] on above:Result Comment: These results are not intended for [...] or following therapy that affects renal tubular secretion.Performed By: #### CBC, CP #### [facility] [place] [address] Gear Generator Set Up Operator: Charles He MDGlucose [Mass/Vol]126 mg/sCBjmt87-60TsdmaPeaceHealthComdetroit receiving hospital on above:Performed By: #### CBC, CP #### [facility] [address] [facility] [place] [address] Gear Generator Set Up Operator: LIAM Quirosotassium [Moles/Vol]3.9 mmol/LNormal3.7-5.3 [facility] HospitalComment on above:Performed By: #### CBC, CP #### [facility] [address] [place] [address] Gear Generator Set Up Operator: LIAM Quirosrotein [Mass/Vol]6.5 g/dLNormal6.4-8.3Mcommunity regional [facility]ery [facility] CenterComdetroit receiving hospital on above:Performed By: #### CBC, CP #### [facility] [address] [place] [address] Gear Generator Set Up Operator: LIZ Quirosodium [Moles/Vol]139 mmol/KMxayjs142-510EnbhjMiami Valley HospitalComment on above:Performed By: #### CBC, CP #### [facility] [address] [place] [address] Gear Generator Set Up Operator: Charles He MDUrea nitrogen [Mass/Vol]22 mg/dLHigh6-20[facility] HospitalComment on above:Performed By: #### CBC, CP #### [facility] [address] [place] [address] Gear Generator Set Up Operator: Charles He MDNeuromyelitis Optica, IgGon 09-15-2023 Neuromyelitis Optica, IgG<1.6Fcsoho0.0-3.0[facility] Physician GroupComment on above:Result Comment: Negative: 0.0 - 3.0 Positive: >3.0 Performed at: - [facility] [id number] Gear Generator Set Up Operator: Bon Solis MD, Phone: [phone] PERFORMED BY: [address] [place] [address] PATHOLOGIST HEAD FILTER PRESS TENDER ANU RICK M.D.Performed By: #### NMO IGG #### [facility] ,Coding Summaryon 83-66-6363Sqhvuz SummaryHTMLBase 64 PxbetykmGGh8cLb+PGhlYWQ+SJ0CCPJeD90fdZGqjO1gB6OKIXiYPtfrQSTVPNuCPfXlgnSxGT0syRBx ZXJu [file] JyB (more content not included)...[facility] BRAIN W WO CONTon 25-15-7417IA BRAIN W WO CONTMR BRAIN W WO CONT MRI brain: HISTORY: [...] by Mckay Dickerson MD on 09/07/2023 12:54 [facility]NMari[facility] THORACIC SPINE W WO CONTon 77-27-7919QV THORACIC SPINE W WO CONTMR THORACIC SPINE W WO CONT History: [Acute [...] contrast demonstrate that the thoracic vertebra and discshave normal height and signal there is normal signal within the thoracic cord . There is no spinal stenosis, foraminal stenosis, large disc herniation, or evidence of cord impingement. There is no pathologic contrast enhancement within the thoracic spine or cord. Impression: [Unremarkable MR of thoracic spine without obvious signal abnormality or pathologic contrast enhancement.] Finalized by Brendon Daniels MD on 09/07/2023 5:28 PMNFayette [facility] Urineon 08-30-2023 UrineUrine Culture ordered as a result of parameters set on specific urine dip and urine microsopic results. Mixed skin, or urogenital willis. Clinically insignificantNormalMagruder Hospital Comment on above:Performed By: #### [id number], [id number], [id number] #### [facility] (DEFAULT) [address] [place] [address] 65858Gzhmgfoh Orderson 21-73-3282Oxmkkift Orders [id number]#1.00OTGTIFFPomerene Hospital.Auto Diff 1on 83-11-0830Bhxj Harvey %7 %Normal1-12[facility] HospitalComment on above: Performed By: #### [id number], 7999727, 07881508, 2885201 #### [facility] (DEFAULT) [address] [place] [address] 92738Hari Abs#0.0 r92Cuuyqu3.0-0.2MMercy Health Lorain HospitalComment on above:Performed By: #### [id number], 2149951, 59801134, 9514478 #### [facility] (DEFAULT) [address] [place] [address] 42010Aegigeqlo/100 WBC (Bld)0.0 %Low0.2-2.0[facility] Comment on above:Performed By: #### [id number], 9806978, 64156454, 0535230 #### [facility] (DEFAULT) [address] [place] [address] 37604Mpj Abs#0.0 d80Eoqetk5.0-0.4[facility] HospitalComment on above:Performed By: #### [id number], 5428193, 91487112, 0278006 #### [facility] (DEFAULT) [address] [place] [address] 11884Jpebxgehsgu/100 WBC (Bld)0.0 %Low0.9-4.0[facility] Comment on above:Performed By: #### [id number], 0240840, 26583883, 4379082 #### [facility] (DEFAULT) [address] [place] [address] 47709Wymdc Abs#2.3 d32Xwhoav9.3-2.9[facility]uder HospitalComment on above:Performed By: #### [id number], 7722789, 68827715, 3481751 #### [facility] (DEFAULT) [address] [place] [address] 84775Muoprfsodmo/100 WBC (Bld)17 %Pdbslj85-33Tfluheys Hospital Comment on above:Performed By: #### [id number], 2863650, 19579870, 6031605 #### [facility] (DEFAULT) [address] [place] [address] 37992Wmxl Abs#1.0 o84Cjrm6.0-0.8[facility] HospitalComment on above:Performed By: #### [id number], 2472477, 77305811, 6396112 #### [facility] (DEFAULT) [address] [place] [address] 67444Earb Abs#10.3 q16Hrpz9.5-9.2Mselect medical clevel[facility], avon HospitalComment on above:Performed By: #### [id number], 0089060, 46223525, 6154066 #### [facility] (DEFAULT) [address] [place] [address] 30022Xfkvwzvcsut/100 WBC (Bld)76 %Znyknu21-83Yjwacbzz Hospital Comment on above:Performed By: #### [id number], 7672386, 54495908, 1879770 #### [facility] (DEFAULT) [address] [place] [address] 39541VQV w/ Auto Diffon 47-41-0821Ycihbvzumfh distribution width (RBC) [Ratio]16.5 %High11.5-15.0[facility] HospitalComment on above: Performed By: #### [id number], 0408333, 03461771, 1415717 #### [facility] (DEFAULT[facility] [address] [place] [address] 92273Utanzzszlx (Bld) [Volume fraction]38.4 %Qdabci14.7-40.4 [facility] HospitalComment on above:Performed By: #### [id number], 3262429, 64372387, 4674447 #### [facility] (DEFAULT) [address] [place] [address] 62887Vyulgsdvlr (Bld) [Mass/Vol]12.6 g/gPIvxltg83.3-15.9 [facility] HospitalComment on above:Performed By: #### [id number], 4852456, 76482395, 3395774 #### [facility] (DEFAULT) [address] [place] [address] 25051Ibb Diff?AutoInvalid Interpretation CodeAultman Hospital Comment on above:Performed By: #### [id number], 0498712, 61513001, 4071026 #### [facility] (DEFAULT) [address] [place] [address] 87038KVO (RBC) [Entitic mass]27 znLdwdyd42-85Psacfhti Hospital Comment on above:Performed By: #### [id number], 4852721, 94664465, 5448156 #### [facility] (DEFAULT) [address] [place] [address] 55744ODKG (RBC) [Mass/Vol]33 g/kTGowkos79-89Bzmojrap Hospital Comment on above:Performed By: #### [id number], 0671747, 23526395, 5547214 #### [facility] (DEFAULT) [address] [place] [address] 01661FOY (RBC) [Entitic vol]82 jSKpjuav18-613Bxcwegop Hospital Comment on above:Performed By: #### [id number], 2096151, 88366892, 6883693 #### [facility] (DEFAULT) [address] [place] [address] 10499Esoinbdr201 m83Nguloz369-534Pxbbynqy HospitalComment on above:Performed By: #### [id number], 8384996, 84959929, 1156281 #### [facility] (DEFAULT) [address] [place] [address] 70726Qnukudei mean volume (Bld) [Entitic vol]8.2 fLNormal 6.3-10.2MMercy Health Lorain HospitalComment on above:Performed By: #### [id number], 6733452, 31705492, 7949873 #### [facility] (DEFAULT) [address] [place] [address] 16234RXJ5.66 d59Hwubhe2.70-5.30Maohiohealth grant medical center HospitalComment on above:Performed By: #### [id number], 0788544, 00749075, 1157473 #### [facility] (DEFAULT) [address] [place] [address] 59717QOB34.6 m46Riqh4.5-10.5[facility] HospitalComment on above: Performed By: #### [id number], 3916954, 57744008, 4303016 #### [facility] (DEFAULT) [address] [place] [address] 15693ONW Standardon 19-36-3249Fbndartpzr ChemNormal [facility] HospitalComment on above:Performed By: #### [id number], 7670319, 32556337, 1647938 #### [facility] (DEFAULT) [address] [place] [address] 21538pYAW Non AA>60Invalid Interpretation [facility] Comment on above:Performed By: #### [id number], 5474771, 92615684, 4501327 #### [facility] (DEFAULT) [address] [place] [address] 73685yXYK AA>60Invalid Interpretation [facility] Comment on above:Performed By: #### [id number], 0353614, 43590721, 1362999 #### [facility] (DEFAULT) [address] [place] [address] 62147Ehxpyvm [Mass/Vol]4.0 g/dLNormal3.5-5.0[facility] Comment on above:Performed By: #### [id number], 8208086, 14784107, 1514350 #### [facility] (DEFAULT) [address] [place] [address] 42283Fdpdhjx/Globulin [Mass ratio]1.1 {ratio}Low1.4-2.6Mselect medical clevel[facility], [facility] HospitalComment on above:Performed By: #### [id number], 4222698, 20334673, 3823233 #### [facility] (DEFAULT) [address] [place] [address] 15678Ybg Phos58 IU/IDashmz58-62Iywhfuer HospitalComment on above:Performed By: #### [id number], 6026744, 90050504, 3422319 #### [facility] (DEFAULT) [address] [place] [address] 28786ZFZ [Catalytic activity/Vol]17.0 U/FGjofwq49.0-54.0 [facility] HospitalComment on above:Performed By: #### [id number], 8628821, 51919076, 9377499 #### [facility] (DEFAULT) [address] [place] [address] 74114Aroiw gap [Moles/Vol]8.8 mmol/LNormal5.0-19.0[facility] HospitalComment on above:Performed By: #### [id number], 9855676, 85316677, 9715051 #### [facility] (DEFAULT) [address] [place] [address] 87106JEE [Catalytic activity/Vol]21 U/ZUdneyy56-79Qapagfso HospitalComment on above:Performed By: #### [id number], 0332135, 61503113, 0846225 #### [facility] (DEFAULT) [address] [place] [address] 73463Bein Total0.3 mg/dLNormal0.3-1.2Mselect medical [facility] HospitalComment on above:Performed By: #### [id number], 0121071, 63225504, 6739067 #### [facility] (DEFAULT) [address] [place] [address] 88217Hguixve [Mass/Vol]9.2 mg/dLNormal8.9-10.3Mselect [facility] Hospital Comment on above:Performed By: #### [id number], 6586842, 59909168, 6411120 #### [facility] (DEFAULT) [address] [place] [address] 23635Nhqfffif [Moles/Vol]106 mmol/NOujiho378-093Nhkpmfba HospitalComment on above:Performed By: #### [id number], 5585418, 97011038, 5545683 #### [facility] (DEFAULT) [address] [place] [address] 01264FU1 [Moles/Vol]27 mmol/XWltkzi87-48Dcewnlcu Hospital Comment on above:Performed By: #### [id number], 7424658, 16644705, 8064223 #### [facility] (DEFAULT) [address] [place] [address] 74439Miuaopixzx [Mass/Vol]0.91 mg/dLNormal0.60-1.30[facility] HospitalComment on above:Performed By: #### [id number], 2084779, 44932052, 2197338 #### [facility] (DEFAULT) [address] [place] [address] 21383Wxscpajk (S) [Mass/Vol]3.4 g/dLNormal1.5-4.3Mselect medical clevel[facility] HospitalComment on above:Performed By: #### [id number], 0016205, 63242113, 5661938 #### [facility] (DEFAULT) [address] [place] [address] 09426Cytjyxk [Mass/Vol]139.0 mg/kAVpmx88.0-118.0[facility] HospitalComment on above:Performed By: #### [id number], 9239305, 78128723, 7443470 #### [facility] (DEFAULT) [address] [place] [address] 57899Odchldqmkh902 mOsm/LInvalid Interpretation CodeOhiohealth O'Bleness Hospital HospitalComment on above:Performed By: #### [id number], 6500319, 83839029, 9772926 #### [facility] (DEFAULT) [address] [place] [address] 30182Pawkqviyq [Moles/Vol]3.8 mmol/LNormal3.6-5.1Mselect medical [facility] HospitalComment on above:Performed By: #### [id number], 3170360, 61945020, 5321748 #### [facility] (DEFAULT) [address] [place] [address] 33296Rnjghje [Mass/Vol]7.4 g/dLNormal6.5-8.1MMercy Health Lor[facility] Hospital Comment on above:Performed By: #### [id number], 9421585, 00969709, 0201697 #### [facility] (DEFAULT) [address] [place] [address] 40060Ygvfxp [Moles/Vol]138.0 mmol/SEhaico661.0-144.0[facility] HospitalComment on above:Performed By: #### [id number], 0005180, 06861331, 4915959 #### [facility] (DEFAULT) [address] [place] [address] 12020Ilgc nitrogen [Mass/Vol]20 mg/dLNormal8-26[facility] HospitalComment on above:Performed By: #### [id number], 2503234, 55548692, 9720486 #### [facility] (DEFAULT) [address] [place] [address] 44156Rlme nitrogen/Creatinine [Mass ratio]21.9 mg/mgHigh 4.6-16.2MMercy Health Lorain HospitalComment on above:Performed By: #### [id number], 1908583, 01943405, 4110798 #### [facility] (DEFAULT) [address] [place] [address] 22002Pwt Rateon 62-27-3346Bmd Rate5 mm/hrNormal0-20[facility] HospitalComment on above:Performed By: #### [id number], 7990839, 10594488, 0846439 #### [facility] (DEFAULT) [address] [place] [address] 46812UQ Pqdih5eu 70-94-9485QZ Bacteria3+[facility] Comment on above:Order Comment: Urinalysis Microscopic order added on by [employer] Expert Rules system.Performed By: #### [id number], 56952509, 9172630 #### [facility] (DEFAULT) [address] [place] [address] 56696SR Mucous1+NormalOhiohealth O'Bleness Hospital HospitalComment on above:Order Comment: Urinalysis Microscopic order added on by [employer] Expert Rules system. Performed By: #### [id number], 29693622, 1729393 #### [facility] (DEFAULT) [address] [place] [address] RBC5-10NoSelect Medical Specialty Hospital - CantonComment on above:Order Comment: Urinalysis Microscopic order added on by [employer] Expert Rules system. Performed By: #### [id number], 38358382, 3186284 #### [facility] (DEFAULT) [address] [place], [place] [address]UA Squam EpiModerateNoSt. Francis Hospital HospitalComment on above:Order Comment: Urinalysis Microscopic order added on by [employer] Expert Rules system.Performed By: #### [id number], 54327170, 9144401 #### [facility] (DEFAULT) [address] [place] [address] CNS19-24LkjbhpWevlbmye HospitalComment on above:Order Comment: Urinalysis Microscopic order added on by [employer] Expert Rules system. Performed By: #### [id number], 57483502, 2374187 #### [facility] (DEFAULT) [address] [place], [place] [address]UA w Culture if Ind Standardon 46-43-9871Tyazapnigp UA [facility] HospitalComment on above:Performed By: #### [id number], 61516603, 5806286 #### [facility] (DEFAULT) [address] [place], [place] [address]Color (U)YellowNoSelect Medical Specialty Hospital - CantonComment on above: Performed By: #### [id number], 28989208, 0293115 #### [facility] (DEFAULT) [address] [place], [place] [address]Culture?IndicatedInvalid Interpretation [facility] HospitalComment on above:Result Comment: Result created by rule GL_MAGR_ADD_UA_CULT Result created by rule GL_MAGR_ADD_UA_CULT Result created by rule GL_MAGR_ADD_UA_CULT1 Result created by rule GL_MAGR_ADD_UA_CULTPerformed By: #### [id number], 28522109, 3464942 #### [facility] (DEFAULT) [address] [place] [address] 93298Utawhln (U) [Mass/Vol]NegativeNormalOhiohealth O'Bleness Hospital Hospital Comment on above:Performed By: #### [id number], 15295415, 6949072 #### [facility] (DEFAULT) [address] [place] [address] 02855Pdcmipc Ql (U)TRACENormalOhiohealth O'Bleness Hospital HospitalComment on above:Performed By: #### [id number], 35539462, 0299730 #### [facility] (DEFAULT) [address] [place] [address] 13972Kmxfx?IndicatedInvalid Interpretation CodeOhiohealth O'Bleness Hospital HospitalComment on above:Result Comment: Result created by rule GL_MAGR_ADD_UA_MICROPerformed By: #### [id number], 72184477, 5415574 #### [facility] (DEFAULT) [address] [place] [address] 10342ML BilirubinNegativeNormalOhiohealth O'Bleness Hospital HospitalComment on above:Performed By: #### [id number], 05377303, 4562778 #### [facility] (DEFAULT) [address] [place] [address] 82483JG BloodNegativeNormalNEGATIVEOhiohealth O'Bleness Hospital HospitalComment on above:Performed By: #### [id number], [id number], [id number] #### [facility] (DEFAULT) [address] [place] [address] [id number] ClarityCLEARNormalCLEAROhiohealth O'Bleness Hospital HospitalComment on above:Performed By: #### [id number], [id number], [id number] #### [facility] (DEFAULT) [address] [place] [address] [id number] Leuk EstNegativeNormalNEGATIVEOhiohealth O'Bleness Hospital HospitalComment on above:Performed By: #### [id number], [id number], [id number] #### [facility] (DEFAULT) [address] [place] [address] [id number] NitriteNegativeNormalNEGATIVEOhiohealth O'Bleness Hospital HospitalComment on above:Performed By: #### [id number], [id number], [id number] #### [facility] (DEFAULT) [address] [place] [address] [id number] pH6.4Oyhtim4-6Pztygqqb HospitalComment on above: Performed By: #### [id number], [id number], [id number] #### [facility] (DEFAULT) [address] [place] [address] [id number] ProteinTRACEAbnormalNEGATIVEOhiohealth O'Bleness Hospital HospitalComment on above:Performed By: #### [id number], [id number], [id number] #### [facility] (DEFAULT) [address] [place] [address] [id number] Spec Grav1.175Wgnsen7.001-1.035[facility] HospitalComment on above:Performed By: #### [id number], [id number], [id number] #### [facility] (DEFAULT) [address] [place] [address] [id number] Urobilinogen0.2 mg/dLNormal0.2-1.0[facility] Hospital Comment on above:Performed By: #### [id number], [id number], [id number] #### [facility] (DEFAULT) [address] [place] [address] [id number] SourceClean CatchNormalOhiohealth O'Bleness Hospital HospitalComment on above:Performed By: #### [id number], [id number], [id number] #### [facility] (DEFAULT) [address] [place] [address] [id number] Note - Nurseon 37-28-4233Ggvcboig Note - Nurse Patient arrived with significant other at 0940 for outpatient IV Methylprednisolone infusion. IV access obtained per lodging house keeper, Etta RN, #20G to Right AC. Methylprednisolone infusion administered per orders, ran for 55 minutes. IV flushed and discontinued. Gauze dressing applied. Patient denied questions or needs. Patient discharged to home with already scheduled follow up. [Electronically Signed on: 08/27/2023 12:58 EDT] Erna Amezquita RN [Verified on: 08/27/2023 12:58 EDT] Erna Amezquita RNPomerene HospitalProvider Orderson 76-66-1612Ruutrzhs [id number]#1.00OTGTDelaware County HospitalMR CERVICAL SPINE W WO CONTon 85-12-1490MW CERVICAL SPINE W WO CONTMR CERVICAL SPINE W WO CONT MR CERVICAL SPINE W WO CONT 08/22/2023 9:21 AM INDICATION: Abnormal MRI, cervical spine, numbness and weakness COMPARISON: Cervical spine MRI 10/15/2022 TECHNIQUE: Multiplanar multisequence MR images of the cervical spine with and without contrast wereobtained. FINDINGS: NUMBERING/ALIGNMENT: There are 7 cervical type [...] exam, however size is overall slightly larger, withill-defined margins, measuring approximately 13 x 6 x [...] recommended to evaluate for additional lesions. CSF samplingmay also be helpful. THIS REPORT CONTAINS A [...] by Josefina Isaacs DO on 08/23/2023 11:22 AMNormalProMedica Trihealth Bethesda Butler HospitalComplete Blood Count Auto Diffon 93-54-3093Lroijjamc (Bld) [#/Vol]0.0 10*3/uLNormal0.0-0.2The [facility] Physician GroupComment on above:Result Comment: PERFORMED BY: [place] [address] PATHOLOGIST HEAD FILTER PRESS TENDER ANU RICK M.D.Performed By: #### CBC #### [facility] [address] [place] [address] USABasophils/100 WBC (Bld)0.1 %Normal.The [facility] Physician GroupComment on above:Performed By: #### CBC #### [place] [address] USAEosinophils (Bld) [#/Vol]0.0 10*3/uLNormal0.0-0.45The [facility] Physician GroupComment on above:Performed By: #### CBC #### [place] [address] USAEosinophils/100 WBC (Bld)0.1 %Normal.The [facility] Physician GroupComment on above:Performed By: #### CBC #### [place] [address] USAErythrocyte distribution width (RBC) [Ratio]12.8 %Normal 11.9-15.3The [facility] Physician GroupComment on above:Performed By: #### CBC #### [place] [address] USAHematocrit (Bld) [Volume fraction]27.3 %Significant change down34.0-46.4The [facility] Physician GroupComment on above:Performed By: #### CBC #### [place] [address] USAHemoglobin (Bld) [Mass/Vol]9.2 g/dLLow11.8-15.4The [facility] Physician GroupComment on above:Performed By: #### CBC #### [place] [address] USALymphocytes (Bld) [#/Vol]2.3 10*3/uLNormal1.00-4.8The [facility] Physician GroupComment on above:Performed By: #### CBC #### [place] [address] USALymphocytes/100 WBC (Bld)13.6 %Normal.The [facility] Physician GroupComment on above:Performed By: #### CBC #### [place] [address] USAMCH (RBC) [Entitic mass]30.5 faVkokzd92.7-34.3The [facility] Physician GroupComment on above:Performed By: #### CBC #### [place] [address] USAMCV (RBC) [Entitic vol]90.2 qKKpwqlf66-003Bgi [facility] Physician GroupComment on above:Performed By: #### CBC #### [facility] [address] [place] [address] USAMean Corpuscular HGB Conc33.8 g/fCSilhxp76.0-35.0The [facility] Physician GroupComment on above:Performed By: #### CBC #### [facility] [address] [place] [address] USAMonocytes (Bld) [#/Vol]1.4 10*3/uLHigh0.0-0.8The [facility] Physician GroupComment on above:Performed By: #### CBC #### [place] [address] USAMonocytes/100 WBC (Bld)8.3 %Normal.The [facility] Physician GroupComment on above:Performed By: #### CBC #### [place] [address] USANeutrophils (Bld) [#/Vol]13.2 10*3/uLHigh1.8-7.7The [facility] Physician GroupComment on above:Performed By: #### CBC #### [facility] [address] [place] [address] USANeutrophils/100 WBC (Bld)77.9 %Normal.The [facility] Physician GroupComment on above:Performed By: #### CBC #### [facility] [address] [place] [address] USANRBC%0.1 /100{WBC}Normal0-0.5The [facility] Comment on above:Performed By: #### CBC #### [facility] [address] [place] [address] USAPlatelet mean volume (Bld) [Entitic vol]7.9 fLNormal 6.3-10.7The [facility] Physician GroupComment on above:Performed By: #### CBC #### [place] [address] USAPlatelets (Bld) [#/Vol]234 10*3/oWTsdkdw271-516Ege [facility] Physician GroupComment on above:Performed By: #### CBC #### [place] [address] USARBC (Bld) [#/Vol]3.02 10*6/uLLow3.60-5.00The [facility] Physician GroupComment on above:Performed By: #### CBC #### [place] [address] USAWBC (Bld) [#/Vol]16.9 10*3/uLHigh3.8-11.6The [facility] Physician GroupComment on above:Performed By: #### CBC #### [place] [address] USAComplete Blood Count Auto Diffon 46-70-8618Ucgbhwaer (Bld) [#/Vol]0.0 10*3/uLNormal0.0-0.2The [facility] Physician GroupComment on above: Result Comment: PERFORMED BY: [place] [address] PATHOLOGIST HEAD FILTER PRESS TENDER ANU RICK M.D.Performed By: #### CBC #### [place] [address] USABasophils/100 WBC (Bld)0.3 %Normal.The [facility] Physician GroupComment on above:Performed By: #### CBC #### [place] [address] USAEosinophils (Bld) [#/Vol]0.0 10*3/uLNormal0.0-0.45The [facility] Physician GroupComment on above:Performed By: #### CBC #### [place] [address] USAEosinophils/100 WBC (Bld)0.4 %Normal.The [facility] Physician GroupComment on above:Performed By: #### CBC #### [place] [address] USAErythrocyte distribution width (RBC) [Ratio]12.9 %Normal 11.9-15.3The [facility] Physician GroupComment on above:Performed By: #### CBC #### [place] [address] USAHematocrit (Bld) [Volume fraction]38.4 %Bpjxeo96.0-46.4The [facility] Physician GroupComment on above:Performed By: #### CBC #### [place] [address] USAHemoglobin (Bld) [Mass/Vol]13.1 g/jMLiiugx68.8-15.4The [facility] Physician GroupComment on above:Performed By: #### CBC #### [place] [address] USALymphocytes (Bld) [#/Vol]2.7 10*3/uLNormal1.00-4.8The [facility] Physician GroupComment on above:Performed By: #### CBC #### [place] [address] USALymphocytes/100 WBC (Bld)24.7 %Normal.The [facility] Physician GroupComment on above:Performed By: #### CBC #### [place] [address] USAMCH (RBC) [Entitic mass]30.9 jkHtjokx54.7-34.3The [facility] Physician GroupComment on above:Performed By: #### CBC #### [place] [address] USAMCV (RBC) [Entitic vol]90.6 sGVdklbv31-532Cgh [facility] Physician GroupComment on above:Performed By: #### CBC #### [place] [address] USAMean Corpuscular HGB Conc34.1 g/gRUnnerr87.0-35.0The [facility] Physician GroupComment on above:Performed By: #### CBC #### [place] [address] USAMonocytes (Bld) [#/Vol]0.7 10*3/uLNormal0.0-0.8The [facility] Physician GroupComment on above:Performed By: #### CBC #### [facility] [address] [place] [address] USAMonocytes/100 WBC (Bld)6.1 %Normal.The [facility] Physician GroupComment on above:Performed By: #### CBC #### [facility] [address] [place] [address] USANeutrophils (Bld) [#/Vol]7.3 10*3/uLNormal1.8-7.7The [facility] Physician GroupComment on above:Performed By: #### CBC #### [facility] [address] [place] [address] USANeutrophils/100 WBC (Bld)68.5 %Normal.The [facility] Physician GroupComment on above:Performed By: #### CBC #### [facility] [address] [place] [address] USANRBC%0.0 /100{WBC}Normal0-0.5The [facility] Comment on above:Performed By: #### CBC #### [facility] [address] [place] [address] USAPlatelet mean volume (Bld) [Entitic vol]8.6 fLNormal 6.3-10.7The [facility] Physician GroupComment on above:Performed By: #### CBC #### [facility] [address] [place] [address] USAPlatelets (Bld) [#/Vol]256 10*3/dWMmqqvs159-062Cfj [facility] Physician GroupComment on above:Performed By: #### CBC #### [facility] [address] [place] [address] USARBC (Bld) [#/Vol]4.23 10*6/uLNormal3.60-5.00The [facility] Physician GroupComment on above:Performed By: #### CBC #### [facility] [address] [place] [address] USAWBC (Bld) [#/Vol]10.7 10*3/uLNormal3.8-11.6The [facility] Physician GroupComment on above:Performed By: #### CBC #### [facility] [address] [place] [address] USADipstick and Microscopicon 12-14-3309Ompzjyshbw (U)Turbid Critically abnormalClearThe [facility] Physician GroupComment on above:Order Comment: Name Collection Type:: Yan CatheterPerformed By: #### ADDONUAPLUS #### [place] [address] USABacteria,UrineNone SeenNormalNone SeenBayfront Health St. Petersburg Emergency Room Physician GroupComment on above:Order Comment: Name Collection Type:: Yan CatheterPerformed By: #### ADDONUAPLUS #### [place] [address] USABilirubin,UrineNegativeNormalNegativeBayfront Health St. Petersburg Emergency Room Physician GroupComment on above:Order Comment: Name Collection Type:: Yan CatheterPerformed By: #### ADDONUAPLUS #### [place] [address] USAColor (U)YellowNormalYellowThe [facility] Group Comment on above:Order Comment: Name Collection Type:: Yan CatheterPerformed By: #### ADDONUAPLUS #### [facility] [address] [place], [place] [id number] USAGlucose Ql (U)NormalNormalNormalThe [facility] Physician GroupComment on above:Order Comment: Name Collection Type:: Yan Catheter Performed By: #### ADDONUAPLUS #### [facility] [address] [place] [address] USAHyaline Casts,UrineNone SeenNormal0-1The [facility] Physician GroupComment on above:Order Comment: Name Collection Type:: Yan CatheterPerformed By: #### ADDONUAPLUS #### [facility] [address] [place], [place] [address] USAKetones Ql (U)2+HighNegativeBayfront Health St. Petersburg Emergency Room Physician Group Comment on above:Order Comment: Name Collection Type:: Yan CatheterPerformed By: #### ADDONUAPLUS #### [place] [address] USALeukocyte esterase Test strip Ql (U)NegativeNormalNegative The [facility] Physician GroupComment on above:Order Comment: Name Collection Type:: Yan CatheterPerformed By: #### ADDONUAPLUS #### [place] [address] USANitrite,UrineNegativeNormalNegativeThe [facility] Physician GroupComment on above:Order Comment: Name Collection Type:: Yan Catheter Performed By: #### ADDONUAPLUS #### [place] [address] USAOccult Blood,Urine2+HighNegativeThe [facility] Physician GroupComment on above:Order Comment: Name Collection Type:: Yan CatheterResult Comment: PERFORMED BY: [place] [address] PATHOLOGIST HEAD FILTER PRESS TENDER ANU RICK M.D.Performed By: #### ADDONUAPLUS #### [place] [address] USAOther Casts,UrineNone SeenNormalNone SeenThe [facility] Physician GroupComment on above:Order Comment: Name Collection Type:: Yan CatheterResult Comment: PERFORMED BY: [place] [address] PATHOLOGIST HEAD FILTER PRESS TENDER ANU RICK M.D.Performed By: #### ADDONUAPLUS #### [place] [address] USApH (U)6.0 [pH]Normal5.0-9.0The [facility] Comment on above:Order Comment: Name Collection Type:: Yan CatheterPerformed By: #### ADDONUAPLUS #### [place] [address] USAProtein (U) [Mass/Vol]30 mg/dLHighNegativeThe [facility] Physician GroupComment on above:Order Comment: Name Collection Type:: Yan CatheterPerformed By: #### ADDONUAPLUS #### [address] [place] [address] USARBC,Rvljy41-58Bnxn8-6Vro [facility] Physician GroupComment on above:Order Comment: Name Collection Type:: Yan CatheterPerformed By: #### ADDONUAPLUS #### [facility] [address] [place] [address] USARenal Epithelial Cells,UrineNone SeenNormal0-1The [facility] Physician GroupComment on above:Order Comment: Name Collection Type:: Yan CatheterPerformed By: #### ADDONUAPLUS #### [facility] [address] [place] [address] USASpecificy North English,Urine1.164Ygspka2.001-1.030The [facility] Physician GroupComment on above:Order Comment: Name Collection Type:: Yan CatheterPerformed By: #### ADDONUAPLUS #### [facility] [address] [place] [address] USASquamous Epithelial Cell,Bcaji44-27Qokz6-3Efn [facility] Physician GroupComment on above:Order Comment: Name Collection Type:: Yan CatheterPerformed By: #### ADDONUAPLUS #### [facility] [address] [place] [address] USAUrobilinogen,UrineNormalNormalNormalThe [facility] Physician GroupComment on above:Order Comment: Name Collection Type:: Yan CatheterPerformed By: #### ADDONUAPLUS #### [facility] [address] [place] [address] USAWBC,Cisrq3-3Cydeje2-4Tyg [facility] Physician GroupComment on above:Order Comment: Name Collection Type:: Yan CatheterPerformed By: #### ADDONUAPLUS #### [facility] [address] [place] [address] USALon 04-06-2023 Specimen: [id number] Received: 04/07/23 Status: JOSE Brandt Num: [id number] Spec Type: Surgical Subm Dr: Tiburcio Bass DO Tissues: A Placenta - 3rd Trimester (Greater than 28 weeks) (PLACENTA AND CORD) Procedures: HE/3, Gross/Micro L5 Age/ Patient Sex Location Account Attending Physician Carrie Bernstein 22/F 3S [id number] Tiburcio Bass DO SPEC NUM: [id number] RECD: 04/07/23 STATUS: JOSE BRANDT NUM: [id number] BEV: 04/06/[address] [facility] [address]: Tiburcio Bass DO ENTERED: 04/07/23 AYAD SMITH: ALLYN TYPE: Surgical DEPT: S ORDERED: HE/3, [...] g, 15.0 x 13.0 x 2.0 cm vega placenta with attached membranes and umbilical cord. The umbilical cord is 5.5 cm in length x 0.8 cm in diameter. The umbilical cord does not have a twist. The cut surfaces of the umbilical cord show three vessels. Specimen: [id number] Received: 04/07/23 Status: JOSE Brandt Num: [id number] Spec Type: Surgical Subm Dr: Tiburcio Bass DO Tissues: A Placenta - 3rd Trimester (Greater than 28 weeks) (PLACENTA AND CORD) Procedures: ED Gross/Alyce L5 Patient: HannaCarrie shelton Yi [id number] (Continued) Specimen: [id number] Received: 04/07/23 (Continued) Gross Description (Continued) Signed (signature on file) Bruce Riley MD 04/08/23 1439 Specimen: [id number] Received: 04/07/23 Status: JOSE Brandt Num: [id number] Spec Type: Surgical Subm Dr: Tiburcio Bass DO Tissues: A Placenta - 3rd Trimester (Greater than 28 weeks) (PLACENTA AND CORD) Procedures: HE/3, Gross/Micro L5 Patient: Carrie Bernstein [id number] (Continued) Specimen: [id number] Received: 04/07/23 (Continued) Gross Description (Continued) There [...] brown, homogenous, soft, spongy tissue without abnormality. Road Tester sections are submitted in three cassettes labeled as follows: A1 membrane roll and umbilical cord, A2 full-thickness transverse section of placenta, marginally, A3 full-thickness transverse section of placenta, centrally. Microscopic Description Microscopic examinations are performed CPT Codes 60961 Specimen: [id number] Received: 04/07/23 Status: JOSE Brandt Num: [id number] Spec Type: Surgical Subm Dr: Tiburcio Bass DO Tissues: A Placenta - 3rd T (more content not included)...NormalBayfront Health St. Petersburg Emergency Room Physician GroupOB Urine Drug Screen (NO THC)on 48-21-4165Hzbbpdjvwrv Screen,UrineNegativeNormalNegativeThe [facility] Physician GroupComment on above: Performed By: #### OBUDS #### [place] [address] USABarbiturate Screen,UrineNegativeNormalNegativeThe [facility] Physician GroupComment on above:Performed By: #### OBUDS #### [place] [address] USABenzodiazepines Screen,UrineNegativeNormalNegativeThe [facility] Physician GroupComment on above:Performed By: #### OBUDS #### [place] [address] USACocaine Screen,UrineNegativeNormalNegativeThe [facility] Physician GroupComment on above:Performed By: #### OBUDS #### [place] [address] USAOpiate Screen,UrineNegativeNormalNegativeThe [facility] Physician GroupComment on above:Performed By: #### OBUDS #### [place] [address] USAPhencyclidine Screen, UrineNegativeNormalNegativeThe [facility] GroupComment on above:Result Comment: These are unconfirmed results and should not be used for legal purposes. Drug Cut-Off Concentration: AMPH 1000 ng/mL PERRY 200 ng/mL EDITH 200 ng/mL COCM 300 ng/mL OP 300 ng/mL PCP 25 ng/mL PERFORMED BY: [place] [address] PATHOLOGIST HEAD FILTER PRESS TENDER ANU RICK M.D.Performed By: #### OBUDS #### [place] [address] USARPR w/rfx to Quant TP Abson 63-76-9016JTP, Rfx Quant RPR Non-ReactiveNormalNon ReactiveThe [facility] Physician [facility] RankinComment on above: Result Comment: Performed at: - [facility] [id number] Gear Generator Set Up Operator: Mckay Cifuentes PhD, Phone: [phone] PERFORMED BY: [place] [address] PATHOLOGIST HEAD FILTER PRESS TENDER ANU RICK M.D.Performed By: #### RPR W RFX #### [facility] ,Type and Screenon 25-70-2334VYT and Rh group Nom (Bld)Blood group O Rh(D) positiveNoNovant Health Rehabilitation Hospital Physician GroupCerebrospinal fluid eosinophil percentageOrdered By: Eula Garcia on 69-72-7775Fbzdidpzfes/100 WBC (CSF)0 %0-0 [facility] CampusCerebrospinal fluid lymphocyte percentage Ordered By: Eula Garcia on 21-09-8138Byfoomiuttc/Leukocytes Manual cnt (CSF) [Pure # fraction]97 %40-80[facility] CampusCerebrospinal fluid monocyte percentageOrdered By: Eula Garcia on 65-49-0525Asswwrhte/100 WBC (CSF)3 %15-45[facility] CampusCerebrospinal fluid neutrophil percentageOrdered By: Eula Garcia on 65-47-9690Bhepsfjmyir/100 WBC (CSF)0 %0-6 [facility] CampusCerebrospinal fluid post-centrifugation appearance determinationOrdered By: Eula Garcia on 18-82-5540Wecignhair (Spun CSF)ColorlessColorOhioHealth Pickerington Methodist HospitalCerebrospinal fluid sample tube volume measurementOrdered By: Eula Garcia on 38-19-1308Xeoozmod volume (CSF)11.9 mLKettering Health Main CampusColor CSFOrdered By: Eula Garcia on 18-09-9296Ojplw (CSF)ColorlessColorOhioHealth Pickerington Methodist HospitalGlucose [Mass/volume] in Cerebral spinal fluidOrdered By: Eula Garcia on 88-85-1981Udwruqq (CSF) [Mass/Vol]64 mg/bM60-27OkkbnwuurKettering Health Main CampusGram stain for investigation of transfusion reactionOrdered By: Eula Garcia on 99-98-2716Knmelyjuhnl observation Gram stain Nom (Unsp spec)[facility] CampusManual cerebrospinal fluid erythrocytes count (number/volume)Ordered By: Eula Garcia on 90-19-0615VYM Manual cnt (CSF) [#/Vol]0 /uLKettering Health Main CampusComment on above:The reference interval and other method performance specifications have not been established for this body fluid. The test result must be integrated into the clinical context for interpretation.No Panel InformationOrdered By: Eula Garcia on 44-32-9503FJZ AppearanceClearClearKettering Health Main CampusCSF Total Cells Wrnigfr737ZeirumzbdKettering Health Main CampusCSF Tube NumberTube number: 4 [facility] CampusNucleated cells [#/volume] in Cerebral spinal fluid by Manual countOrdered By: Eula Garcia on 87-44-0734Gnytzxrkd cells Manual cnt (CSF) [#/Vol]0.01 10*3/uL0-5FCoshocton Regional Medical CenterComment on above:Critical valueresult calledat 2116 on 12/09/22Protein [Mass/volume] in Cerebral spinal fluidOrdered By: Eula Garcia on 89-21-4853Lregslt (CSF) [Mass/Vol]21 mg/nE20-24DuyqnblesKettering Health Main CampusBlood mercury measurement (mass/volume)Ordered By: Eula Garcia on 27-60-3193Lwmekbz (Bld) [Mass/Vol]<1.0 ug/L0.0-14.9[facility] CampusComment on above: This test was developed and its performance characteristicsdetermined by [employer]. It has not been cleared orapproved by the Food and Drug Administration. Environmental Exposure: <15.0 OccupationalExposure: RISHABH - Inorganic Mercury: 15.0 Detection Limit = 1.0Performed at: [address] [id number] Director: Bon Solis MD, Phone: [phone] Borrelia burgdorferi Ab [Interpretation] in SerumOrdered By: Eula Garcia on 10-20-2022. burgdorferi Ab (S) [Interp]N/[facility] Borrelia burgdorferi IgG Ab [Presence] in Serum or Plasma by ImmunoassayOrdered By: Eula Garcia on 10-20-2022. burgdorferi IgG IA QlN/[facility] DaytonBorrelia burgdorferi IgG+IgM Ab [Presence] in Serum by Immunoassay Ordered By: Eula Garcia on 10-20-2022. burgdorferi IgG+IgM IA Ql (S)Negative NegativeKettering Health Main CampusComment on above:Lyme antibodies not detected. Reflex testing is notindicated.No laboratory evidence of infection wit h B. burgdorferi(Lyme disease). Negative results may occur in patientsrecently infected (less than or equal to 14 days) with B.burgdorferi. If recent infection is suspected, repeattesting on a new sample collected in 7 to 14 days isrecommended.Performed at: [address] [id number] Director: Mckay Cifuentes PhD, Phone: [phone] burgdorferi IgM Ab [Presence] in Serum or Plasma by ImmunoassayOrdered By: Eula Garcia on 10-20-2022. burgdorferi IgM IA [facility] DaytonCreatine kinase [Enzymatic activity/volume] in Serum or PlasmaOrdered By: Eula Garcia on 77-53-4195GR [Catalytic activity/Vol]88 U/D28-855QzrzhfavvKettering Health Main CampusFolate [Mass/volume] in Serum or PlasmaOrdered By: Eula Garcia on 78-84-6222Dyimmd [Mass/Vol]6.0 ng/mL>5.9[facility] CampusComment on above:Folate reference range: >5.9 ng/mlThe WHO technical consultation on folate and vitamin a82lbdhqoungcrj has determined that folate concentrations lessthan 4 ng/ml are considered deficient.Monocyte %Ordered By: Eula Garcia on 24-16-3778Babljpou %1 ug/L0-9[facility] Comment on above:This test was developed and its performance characteristicsdetermined by [employer]. It has not been cleared orapproved by the Food and Drug Administration. Detection Limit = 1No Panel InformationOrdered By: Eula Garcia on 03-95-6567Hhldi Blood Lead<1.0 ug/dL0.0-3.4FCoshocton Regional Medical CenterComment on above:Testing performed by Inductively coupled plasma/MassSpectrometry.This test was developed and its performance characteristicsdetermined by [employer]. It has not been cleared orapproved by the Food and Drug Administration. Environmental Exposure: WHO Recommendation <5.0 Occupational Exposure: OSHA Lead Std 40.0 RISHABH 30.0 Detection Limit = 1.0Vitamin B12 ser/plasOrdered By: Eula Garcia on 45-73-2185Xdfouzgbh (Vitamin B12) [Mass/Vol]260 pg/bI796-375LmllvyikmKettering Health Main CampusVitamin D+Metabolites [Mass/volume] in Serum or PlasmaOrdered By: Eula Garcia on 53-68-5255Sybomna D+Metabolites [Mass/Vol]20.2 ng/qZ35-144UmodjamnnKettering Health Main CampusComment on above:VITAMIN D STATUS 25(OH)VITAMIN D RANGE (ng/mL) Deficient <20 Insufficient 20 to <10Exsxxblnjh44 to 100Reference: Vince MF,Nicole NC, Lalito VILLAFUERTE, et al. Evaluation,treatment, and prevention of vitamin D deficiency; an Endocrine Society clinical practice guideline. JCEM. 2010; 96 (7):1911-30.MRI CSPINE WO W CONon 76-13-2916WHR CSPINE WO W CONEXAM: MRI of the cervical spine without and [...] Electronically authenticated by: JOSEFINA HORVATH Date: 2022-10-17 07:[address] [place], [place] [address]MRI BRAIN WO W CONon 51-02-8069CWY BRAIN WO W CONEXAMINATION: MRI BRAIN WO W CON HISTORY: Paresthesia acute weakness, [...] are clear. The flow voids of the [place] are visualized, implying that the vessels are patent. IMPRESSION: Negative for acute infarct or acute intracranial process. No focal lesions in the brain. No evidence for demyelinating process. Electronically authenticated by: KATALINA BORJA Date: 2022-10-12 14:08[facility] CenterActivated partial thromboplastin time (aPTT) in platelet poor plasma by coagulation aOrdered By: Tasneem Garcia on 07-07-1605dYKI Coag (PPP) [Time]31.7 s25.1-36.5FCoshocton Regional Medical CenterBasophils Auto (Bld) [#/Vol]Ordered By: Tasneem Garcia on 61-21-5833Efnzfaepy (Bld) [#/Vol]0.1 10*3/uL0.0-0.2FCoshocton Regional Medical CenterBasophils/100 WBC Auto (Bld) Ordered By: Tasneem Garcia on 36-21-1603Mznmhghga/100 WBC (Bld)0.7 %.[facility] CampusBilirubin Test strip Ql (U)Ordered By: Tasneem Garcia on 47-15-0869Nwxxvxdgm Ql (U)NegativeNegativeKettering Health Main CampusC reactive protein [Mass/volume] in Serum or PlasmaOrdered By: Tasneem Garcia on 32-21-3396KAS [Mass/Vol]< 0.5 mg/dL0.0-0.5FCoshocton Regional Medical Center Calcium [Mass/volume] in Serum or PlasmaOrdered By: Tasneem Garcia 10-45-7345Zgcwmpj [Mass/Vol]8.9 mg/dL8.6-10.3FCoshocton Regional Medical Center Carbon dioxide, total [Moles/volume] in Serum or PlasmaOrdered By: Tasneem Garcia on 48-76-7189QV3 [Moles/Vol]27.0 mmol/L21.0-31.0[facility] CampusChloride [Moles/volume] in Serum or PlasmaOrdered By: Tasneem Garcia on 12-60-9574Yeksgszp [Moles/Vol]107 mmol/C77-365KjiupkifvKettering Health Main CampusColor Auto (U)Ordered By: Tasneem Garcia on 88-37-3042Lvqgu (U) YellowYellowKettering Health Main CampusCreatinine [Mass/volume] in Serum or PlasmaOrdered By: Tasneem Garcia on 60-78-3022Egwbiiucxg [Mass/Vol]0.69 mg/dL0.60-1.20[facility] CampusEosinophils Auto (Bld) [#/Vol] Ordered By: Tasneem Garcia 22-53-5135Yinlvncuxzj (Bld) [#/Vol]0.4 10*3/uL 0.0-0.45[facility] CampusEosinophils/100 WBC Auto (Bld)Ordered By: Tasneem Garcia on 80-58-9021Qejytmauyvp/100 WBC (Bld)4.6 %.[facility] CampusErythrocyte distribution width Auto (RBC) [Ratio]Ordered By: Tasneem Garcia on 70-48-2852Kryfagjcozx distribution width (RBC) [Ratio] 14.5 %11.9-15.3FCoshocton Regional Medical CenterErythrocyte sedimentation rate by Photometric methodOrdered By: Tasneem Garcia on 97-58-2603FXX Photometric method (Bld) [Velocity]13 mm/hr0-19[facility] CampusGlucose [Mass/volume] in Serum or PlasmaOrdered By: Tasneem Garcia on 05-50-4336Ueysldq [Mass/Vol]110 mg/zD92-439CanopammwKettering Health Main CampusComment on above:ADA recommended reference rangeRandom Glucose Reference Range is dependent on time and content of last meal. Glucose of more than 200 mg/dL in a nonstressed, ambulatory subject supports the diagnosisof Diabetes Mellitus.HCG ( test) IA.rapid Ql (U)Ordered By: Tasneem Garcia on 61-84-7005ENZ ( test) Ql (U)NegativeKettering Health Main CampusHematocrit Auto (Bld) [Volume fraction]Ordered By: Tasneem Garcia on 08-49-3882Yajjxxtfss (Bld) [Volume fraction]40.7 %34.0-46.4FCoshocton Regional Medical CenterHemoglobin [Mass/volume] in BloodOrdered By: Tasneem Garcia on 51-27-7755Gsxsoiwcui (Bld) [Mass/Vol]13.5 g/dL11.8-15.4FCoshocton Regional Medical CenterKetones Auto test strip (U) [Mass/Vol]Ordered By: Tasneem Garcia on 78-31-2850Bqowxfk (U) [Mass/Vol]NegativeNegativeKettering Health Main CampusLaboratory - CoagulationOrdered By: Tasneem Garcia on 54-92-4972FY Coag (PPP) [Time]12.7 s 9.0-12.9[facility] CampusLeukocytes [#/volume] corrected for nucleated erythrocytes in Blood by Automated counOrdered By: Tasneem Garcia on 99-97-3060BWL corrected for nucl RBC Auto (Bld) [#/Vol]9.6 10*3/uL3.8-11.6 [facility] CampusLymphocytes Auto (Bld) [#/Vol]Ordered By: Tasneem Garcia on 81-42-5845Icjujohjttn (Bld) [#/Vol]3.2 10*3/uL1.00-4.8 [facility] CampusLymphocytes/100 WBC Auto (Bld)Ordered By: Tasneem Garcia on 08-13-9609Qimzuvldvem/100 WBC (Bld)33.1 %.[facility] Auto (RBC) [Entitic mass]Ordered By: Tasneem Garcia on 13-45-2232MIL (RBC) [Entitic mass]29.8 pg24.7-34.3FSt. John of God HospitalHC Auto (RBC) [Mass/Vol]Ordered By: Tasneem Garcia on 94-64-8303ODVR (RBC) [Mass/Vol]33.2 g/dL32.0-35.0[facility] CampusMCV Auto (RBC) [Entitic vol]Ordered By: Tasneem Garcia on 63-86-5110WVV (RBC) [Entitic vol]89.9 eZ51-359OwgjbfxhkKettering Health Main CampusMonocyte distribution width [Entitic volume] in Blood by AutomatedOrdered By: Tasneem Garcia on 10-09-2022 Monocyte distribution width Auto (Bld) [Entitic vol]17.76 %0.00-20.00[facility] CampusMonocytes Auto (Bld) [#/Vol]Ordered By: Tasneem Garcia on 19-87-8085Oxkdddutn (Bld) [#/Vol]0.5 10*3/uL0.0-0.8[facility] CampusMonocytes/100 WBC Auto (Bld)Ordered By: Tasneem Garcia on 10-09-2022 Monocytes/100 WBC (Bld)5.2 %.[facility] CampusNeutrophils Auto (Bld) [#/Vol]Ordered By: Tasneem Garcia on 78-70-0055Zjrifgrcvtx (Bld) [#/Vol] 5.4 10*3/uL1.8-7.7FCoshocton Regional Medical CenterNeutrophils/100 WBC Auto (Bld)Ordered By: Tasneem Garcia on 25-32-0830Pniulbgvokj/100 WBC (Bld)56.4 %. [facility] CampusNitrite Test strip Ql (U)Ordered By: Tasneem Garcia on 72-10-4952Avlmrhr Ql (U)NegativeNegativeKettering Health Main CampusNo Panel InformationOrdered By: Tasneem Garcia on 65-38-8139Htxbndyvz GFR (CKD-EPI)> 60.0 mL/MinKettering Health Main CampusPharmacy Creatinine Clearance (Dile968.27[facility] CampusNucleated erythrocytes [Presence] in Blood by Automated countOrdered By: Tasneem Garcia on 10-09-2022 Nucleated RBC Auto Ql (Bld)0.1 /100{WBC}0-0.5[facility] Platelet mean volume Auto (Bld) [Entitic vol]Ordered By: Tasneem Garcia on 60-18-3715Mshqqmud mean volume (Bld) [Entitic vol]7.8 fL6.3-10.7FCoshocton Regional Medical CenterPlatelet poor plasma international normalized ratio (INR) by coagulation assay (relatOrdered By: Tasneem Garcia on 47-70-4410WUG Coag (PPP) [Relative time]1.1 {INR}[facility] CampusComment on above: INR Therapeutic Range A) Pre- and Peroperative OAT started two weeks before surgery. NOT HIP SURGERY: 1.5 - 2.5 HIP SURGERY: 2 - 3B) Primary and secondary prevention of venous THROMBOSIS: 2 - 3C) Active venous thrombosis, pulmonary embolismand prevention of recurrent venous thrombosis: 2 - 3D) Prevention of arterial thromboembolismincluding patients with mechanical heart valves: 3 - 4.5 Platelets Auto (Bld) [#/Vol]Ordered By: Tasneem Garcia on 73-20-8034Bnjprnwif (Bld) [#/Vol]221 10*3/qY971-606EwomvoazgKettering Health Main CampusPotassium [Moles/volume] in Serum or PlasmaOrdered By: Tasneem Garcia on 10-09-2022 Potassium [Moles/Vol]4.0 mmol/L3.5-5.1FCoshocton Regional Medical CenterProtein Auto test strip (U) [Mass/Vol]Ordered By: Tasneem Garcia on 23-96-9349Qiegwuh (U) [Mass/Vol]NegativeNegativeKettering Health Main CampusRBC Auto (Bld) [#/Vol]Ordered By: Tasneem Garcia on 74-06-2513ICC (Bld) [#/Vol]4.53 10*6/uL 3.60-5.00Memorial Hospitalerum or plasma anion gap determinationOrdered By: Tasneem Garcia on 77-55-4646Qdbms gap [Moles/Vol]7.0 mmol/L6.0-15.0Memorial Hospitalodium [Moles/volume] in Serum or PlasmaOrdered By: Tasneem Garcia on 63-35-6689Tqwkca [Moles/Vol]137 mmol/L 136-145Memorial Hospitalpecific gravity Auto test strip (U) [Rel density]Ordered By: Tasneem Garcia on 27-88-7618Oajadveu gravity (U) [Rel density]1.0131.001-1.030[facility] CampusUrea nitrogen [Mass/volume] in Serum or PlasmaOrdered By: Tasneem Gacria on 56-95-7263Elvk nitrogen [Mass/Vol]11 mg/dL7-25[facility] CampusUrine clarity by refractometry automatedOrdered By: Tasneem Garcia on 99-50-6155Czfhbxo Refractometry automated (U)ClearClearFCoshocton Regional Medical CenterUrine glucose measurement by automated test strip (mass/volume)Ordered By: Tasneem Garcia on 58-44-3320Laqxdjd Auto test strip (U) [Mass/Vol]Normal mg/dLNoKindred Hospital LimaUrine hemoglobin detection by automated test stripOrdered By: Tasneem Garcia on 42-67-1052Forttnrxlj Auto test strip Ql (U) NegativeNegMagruder HospitalUrine leukocyte esterase detection by automated test stripOrdered By: Tasneem Garcia on 10-09-2022 Leukocyte esterase Auto test strip Ql (U)NegativeNegMagruder HospitalUrobilinogen Auto test strip (U) [Mass/Vol]Ordered By: Tasneem Garcia on 61-01-1395Vqryuuibetzv (U) [Mass/Vol]Normal mg/dLNoUK HealthcareWBC Auto (Bld) [#/Vol]Ordered By: Tasneem Garcia on 80-75-6603WXH (Bld) [#/Vol]9.6 10*3/uL3.8-11.6FCoshocton Regional Medical Center pH Auto test strip (U)Ordered By: Tasneem Garcia on 72-83-2297dD (U)7.5 [pH] 5.0-9.0[facility] CampusCBC AUTO DIFFon 37-34-2204FEME #0.0 103/ulNormal0.0-0.1The [facility] HospitalComment on above:Performed By: #### CBC ####[facility] [address] [place] [address]Dr. Yilan ChangBasophils/100 WBC (Bld)0.5 %Normal0.2-2.0The [facility] HospitalComment on above:Performed By: #### CBC ####[facility] Meqhwhixuj[address] [place], [place] [address]Dr.Yilan ChangEO #0.1 103/ulNormal0.0-0.7The [facility] HospitalComment on above:Performed By: #### CBC ####[facility] Btgnqcbwdj39[address] [place], [place] [address]Dr.Yilan ChangEosinophils/100 WBC (Bld)1.4 %Normal0.9-7.0The [facility] on above:Performed By: #### CBC ####[facility] Bfsyuzscnj20[address] [place], [place] [address]Dr.Yilan ChangErythrocyte distribution width (RBC) [Ratio]13.8 %Normal 11.0-15.0The [facility] HospitalComment on above:Performed By: #### CBC ####[facility] Cnqxvohivd[address] [place], [place] [address]Dr. Yilan ChangHematocrit (Bld) [Volume fraction]42.4 %Ipnjtg71.0-48.0The [facility] on above:Performed By: #### CBC ####[facility] Rwukbicuog6[address] [place], [place] [address]Dr.Yilan ChangHemoglobin (Bld) [Mass/Vol]14.4 g/iJBgclkz57.0-16.0The Cherrington Hospitalment on above: Performed By: #### CBC ####[facility] Zetksidupt55[address] [place], [place] [address]Dr.Yilan ChangIG #0.02 10e3/ulNormal0.00-0.03The [facility] HospitalComdetroit receiving hospital on above:Performed By: #### CBC ####[facility] Crqvsmxqgl124[address] [place], [place] [address]Dr.Yilan ChangIG %0.2 %Normal 0.0-0.5The [facility]isa HospitalComment on above:Performed By: #### CBC ####[facility] [address]eb[address] [place] [address]Dr.Harvinder RileyLYMPH #2.3 103/ulNormal1.2-3.8The [facility] HospitalComment on above:Performed By: #### CBC ####[facility] Zvvjjyheeq299[address] [place], [place] [address]Dr.Harvinder RileyLymphocytes/100 WBC (Bld)27.6 %Yovryo25.5-60.0The [facility] HospitalComment on above:Performed By: #### CBC ####[facility] Wchdyetwtl[address] [place], [place] [address]Dr.Harvinder RileyMANUAL DIFF REQ NONormalThe [facility] HospitalComment on above:Performed By: #### CBC ####[facility] Kvvmfovzhf6[address] [place], [place] [address]Dr. Harvinder RileySYDENHAM HOSPITAL (RBC) [Entitic mass]30.1 fsJygqow57.7-34.0[facility] Comment on above:Performed By: #### CBC ####[facility] Zuxuavffzd5769[address] [place], [place] [address]Dr.Harvinder RileyMCHC (RBC) [Mass/Vol]34.0 g/dL Bahdka35.9-35.2The [facility] HospitalComment on above:Performed By: #### CBC ####[facility] Doyioovkor77[address] [place], [place] [address]Dr. Harvinder RileyV (RBC) [Entitic vol]88.5 cPHbomwf55.0-99.0The [facility] Comment on above:Performed By: #### CBC ####[facility] Cvafmrucoa21[address] [place], [place] [address]Dr.Harvinder RileyMONO #0.4 103/ulNormal0.3-0.8 The [facility] HospitalComment on above:Performed By: #### CBC ####[facility] Zikrkljqws[address] [place], [place] [address]DrCarinHarvinder Osvaldo Monocytes/100 WBC (Bld)5.2 %Normal1.7-12.0The [facility] HospitalComment on above: Performed By: #### CBC ####[facility] Oisriwhjer25[address] [place], [place] [address]Dr.Harvinder RileyNEUT #5.4 103/ulNormal1.4-6.5The [facility] HospitalComment on above:Performed By: #### CBC ####[facility] Xwixhgohtn23[address] [place], [place] [address]Dr.Harvinder RileyNeutrophils/100 WBC (Bld)65.1 %Xthsev19.0-75.0The [facility] HospitalComment on above:Performed By: #### CBC ####[facility] Rgckrcfslc[address] [place], [place] [address]DrAshley RileyPlatelet mean volume (Bld) [Entitic vol]9.5 fLNormal9.5-13.5 The [facility] HospitalComment on above:Performed By: #### CBC ####[facility] Yrvzxizqrs3738[address] [place], [place] [address]Dr.Harvinder RileyPLT227 103/oiDavkvr837-365Lbt [facility] HospitalComment on above:Performed By: #### CBC ####[facility] Vnclzbievz7340[address] [place], [place] [address]Dr. Harvinder RileyRBC4.79 106/ulNormal4.20-5.40The [facility] HospitalComment on above: Performed By: #### CBC ####[facility] Ujdbtezgow230[address] [place], [place] [address]Dr.Harvinder RileyWBC8.3 103/ulNormal4.0-11.0The [facility] HospitalComment on above:Performed By: #### CBC ####[facility] Xcvhcaaurz18[address] [place], [place] [address]DrAshley RileyCRPon 53-42-5115OOJ [Mass/Vol]mg/LNormal<=1.0The [facility] HospitalComment on above: Performed By: #### CMP, CRP ####[facility] Srurcleaja8716[address] [place], [place] [address]Dr. Harvinder RileyCT HEAD WO CONon [id number] HEAD WO CONEXAMINATION: CT HEAD WO CON, 10/05/2022 2:25 PM [...] Electronically authenticated by: IVAN ABRAHAM Date: 2022-10-05 15:47NormTriHealth Bethesda North Hospitale [facility] HospitalMONOon 32-54-1425Egobcalau (Bld) [#/Vol]NegativeNormalNEGATIVE The [facility] HospitalComment on above:Performed By: #### MONO, PREG ####[facility] Nkoghzylmw8811[address] [place], [place] [address]Dr. Harvinder RileyPREG HCG QUALon 52-60-5330JZLLJHTYI, QUALNegativeNormalNEGATIVEBl[facility]ard [facility] Comment on above:Performed By: #### MONO, PREG ####[facility] Lbcdbbuxzk486[address] [place], [place] [address]Dr. Harvinder RileyPROF 14(COMP METB)on 39-37-8474Jbfhrmd [Mass/Vol]3.9 g/dLNormal3.4-5.0[facility] Comment on above:Performed By: #### CMP, CRP ####[facility] Acdovagrkw248[address] [place], [place] [address]Dr. Harvinder Riley Albumin/Globulin [Mass ratio]1.0 {ratio}NormalBlanchard Valley Health System Bluffton HospitalComment on above:Performed By: #### CMP, CRP ####[facility] Sgnhvagtsd1318[address] [place], [place] [address]Dr. Harvinder RileyALP [Catalytic activity/Vol]56 U/L Omovld39-380Sci [facility] HospitalComment on above:Performed By: #### CMP, CRP ####[facility] Pfmimqkbxd4850[address] [place], [place] [address]Dr. Yilan ChangALT [Catalytic activity/Vol]18 U/CHtexwn14-43Utk [facility] Comment on above:Performed By: #### CMP, CRP ####[facility] Ejfwvktvzo607[address] [place], [place] [address]Dr. Yilan ChangAnion gap [Moles/Vol]14.4 mmol/LNormalThe [facility] HospitalComment on above:Performed By: #### CMP, CRP ####[facility] Huyxsoizse2800[address] [place], [place] [address]Dr. Yilan ChangAST [Catalytic activity/Vol]16 U/ISlkiwr01-59Hra [facility] HospitalComment on above:Performed By: #### CMP, CRP ####[facility] Fwarffnbmc3[address] [place], [place] [address]Dr. Yilan Riley Bilirubin [Mass/Vol]0.3 mg/dLNormal0.2-1.0The [facility] HospitalComment on above: Performed By: #### CMP, CRP ####[facility] Rgrunklhvz6936[address] [place], [place] [address]Dr. Yilan ChangCalcium [Mass/Vol]8.8 mg/dLNormal 8.5-10.1The [facility] HospitalComment on above:Performed By: #### CMP, CRP ####[facility] Oafaykkrhx538[address] [place], [place] [address]Dr. Yilan ChangChloride [Moles/Vol]104 mmol/VRlygyj94-510Rrz [facility] Comment on above:Performed By: #### CMP, CRP ####[facility] Zcllcnchoi856[address] [place], [place] [address]Dr. Yilan ChangCO2 [Moles/Vol]25.4 mmol/KQmygzl89.0-32.0The [facility] HospitalComment on above: Performed By: #### CMP, CRP ####[facility] Leepxjfcad064[address] [place], [place] [address]Dr. Yilan ChangCreatinine [Mass/Vol]0.84 mg/dLNormal 0.55-1.02The [facility] HospitalComment on above:Performed By: #### CMP, CRP ####[facility] [address]ms[address]ov[address] [place] [address]Dr. Yilan ChangEGFR-AF TUVALUAN>60Normal>=60The [facility] HospitalComment on above: Performed By: #### CMP, CRP ####[facility] Jdmiqunzog60[address] [place], [place] [address]Dr. Yilan ChangEGFR-NON AF TUVALUAN>60Normal>=60The [facility] HospitalComment on above:Performed By: #### CMP, CRP ####[facility] Bkbhhgrmmd080[address] [place], [place] [address]Dr. Yilan Riley Globulin (S) [Mass/Vol]4.0 g/dLNormalThe [facility] HospitalComment on above: Performed By: #### CMP, CRP ####[facility] Bjgeqixdcb8897[address] [place], [place] [address]Dr. Yilan ChangGlucose [Mass/Vol]115 mg/dLCritically gopj00-555Nqk [facility] HospitalComment on above:Performed By: #### CMP, CRP ####[facility] Oifrtbxcaf[address] [place], [place] [address]Dr. Yilan ChangPotassium [Moles/Vol]3.8 mmol/LNormal3.5-5.1The [facility] Comment on above:Performed By: #### CMP, CRP ####[facility] Wrzbxyehwg[address] [place], [place] [address]Dr. Yilan ChangProtein [Mass/Vol]7.9 g/dLNormal6.4-8.2The [facility] HospitalComment on above:Performed By: #### CMP, CRP ####[facility] Ncwtzpwdtb16[address] [place], [place] [address]Dr. Yilan ChangSodium [Moles/Vol]140 mmol/RMkmrdn074-455Kfj [facility] HospitalComment on above:Performed By: #### CMP, CRP ####[facility] Armpknpjcd[address] [place], [place] [address]Dr. Yilan ChangUrea nitrogen [Mass/Vol]8.0 mg/dLNormal7.0-18.0The [facility] HospitalComment on above:Performed By: #### CMP, CRP ####[facility] [address] [place] [address]Dr. Harvinder RileyUrea nitrogen/Creatinine [Mass ratio] 9.5 mg/mgNormalThe [facility] HospitalComment on above:Performed By: #### CMP, CRP ####[facility] [address]ocrq[address] [place] [address]Dr. Harvinder ChangSED RATE WESTERGRENon 89-20-5984WCK RATE22 mm/hrCritically high<=20 The [facility] HospitalComment on above:Performed By: #### SEDR ####[facility] [address] [place] [address]Dr. Harvinder ChangTSHon 53-87-5093VEQ1.144 uIU/mLNormal0.358-3.740[facility] HospitalComment on above: Performed By: #### CBC #### [facility] [address] [place] [address] Dr. Harvinder HagerC AUTO DIFFon 04-96-5150RGLA #0.0 103/ulNormal0.0-0.1[facility] HospitalComment on above:Performed By: #### CBC #### [facility] [address] [place] [address] Dr. Harvinder RileyBasophils/100 WBC (Bld)0.3 %Normal0.2-2.0[facility] Comment on above:Performed By: #### CBC #### [facility] [address] [place] [address] Dr. Harvinder Martinez #0.2 103/ulNormal0.0-0.7The [facility] HospitalComdetroit receiving hospital on above: Performed By: #### CBC #### [facility] [address] [place] [address] Dr. Harvinder Eddyosinophils/100 WBC (Bld)2.8 %Normal0.9-7.0The [facility] Comment on above:Performed By: #### CBC #### [facility] [address] [place] [address] Dr. Harvinder Eddyrythrocyte distribution width (RBC) [Ratio]13.9 %Bqyjsc40.0-15.0 The [facility] HospitalComment on above:Performed By: #### CBC #### [facility] [address] [place] [address] Dr. Harvinder RileyHematocrit (Bld) [Volume fraction]42.0 %Hglopf41.0-48.0The [facility] HospitalComment on above:Performed By: #### CBC #### [facility] [address] [place] [address] Dr. Harvinder RileyHemoglobin (Bld) [Mass/Vol]13.8 g/rTNkwuot55.0-16.0The [facility] HospitalComment on above:Performed By: #### CBC #### [facility] [address] [place] [address] Dr. Harvinder Hull #0.02 10e3/ulNormal0.00-0.03The [facility] HospitalComment on above:Performed By: #### CBC #### [facility] [address] [place] [address] Dr. Harvinder Hull %0.3 %Normal0.0-0.5The [facility] HospitalComment on above: Performed By: #### CBC #### [facility] [address] [place] [address] Dr. Harvinder Tran #1.8 103/ulNormal1.2-3.8The [facility] HospitalComment on above:Performed By: #### CBC #### [facility] [address] [place] [address] Dr. Harvinder Regaladohocytes/100 WBC (Bld)25.1 %Eilrbk61.5-60.0The [facility] HospitalComment on above:Performed By: #### CBC #### [facility] [address] [place] [address] Dr. Harvinder ZhangUAL DIFF REQNONormalThe [facility] HospitalComment on above: Performed By: #### CBC #### [facility] [address] [place] [address] Dr. Harvinder Hernandez (RBC) [Entitic mass]29.6 cvRnvepr53.7-34.0The [facility] HospitalComment on above:Performed By: #### CBC #### [facility] [address] [place] [address] Dr. Harvinder Pickard (RBC) [Mass/Vol]32.9 g/zMMzdkym46.9-35.2The [facility] HospitalComment on above:Performed By: #### CBC #### [facility] [address] [place] [address] Dr. Harvinder Pickard (RBC) [Entitic vol]90.1 fZNtvzvg82.0-99.0The [facility] HospitalComment on above:Performed By: #### CBC #### [facility] [address] [place] [address] Dr. Harvinder Osborne #0.6 103/ulNormal0.3-0.8The [facility] HospitalComment on above:Performed By: #### CBC #### [facility] [address] [place] [address] Dr. Harvinder Dongocytes/100 WBC (Bld)8.2 %Normal1.7-12.0The [facility] Comment on above:Performed By: #### CBC #### [facility] [address] [place] [address] Dr. Harvinder Case #4.6 103/ulNormal1.4-6.5The [facility] HospitalComment on above:Performed By: #### CBC #### [facility] [address] [place] [address] Dr. Harvinder Laroseutrophils/100 WBC (Bld)63.3 %Lxgelj26.0-75.0The [facility] HospitalComment on above:Performed By: #### CBC #### [facility] [address] [place] [address] Dr. Harvinder Mahoney mean volume (Bld) [Entitic vol]9.7 fLNormal9.5-13.5The [facility] HospitalComment on above:Performed By: #### CBC #### [facility] Laboratory [address] [place] [address] Dr. Harvinder RileyPLT216 103/mzGtvgtx549-314Eus Cherrington Hospitalment on above: Performed By: #### CBC #### [facility] [address] [place] [address] Dr. Harvinder RileyRBC4.66 106/ulNormal4.20-5.40The [facility] HospitalComment on above:Performed By: #### CBC #### [facility] [address] [place] [address] Dr. Harvinder RileyWBC7.2 103/ulNormal4.0-11.0The [facility] HospitalComdetroit receiving hospital on above: Performed By: #### CBC #### [facility] [address] [place] [address] Dr. Harvinder Jane T3on 50-34-7522YFCZ T32.07 pg/mlLCritically low2.18-3.98The [facility] on above:Performed By: #### FT3, CMP, T4, TSH #### [facility] [address] [place] [address] Dr. Harvinder Montague 03-44-1824Tpzj [Mass/Vol]32.0 ug/dLCritically low 50.0-170.0The [facility] on above:Performed By: #### VITB12, IRON, VITAD #### [facility] [address] [place] [address] Dr. Harvinder Betancourt 14(COMP METB)on 33-70-1956Tlrksuy [Mass/Vol]3.7 g/dLNormal 3.4-5.0The [facility] on above:Performed By: #### FT3, CMP, T4, TSH #### [facility] [address] [place] [address] Dr. Harvinder RileyAlbumin/Globulin [Mass ratio]1.1 {ratio}NormalThe [facility] on above:Performed By: #### FT3, CMP, T4, TSH #### [facility] [address] [address] [address] Harvinder iRvero [Catalytic activity/Vol]58 U/RFcqbqd23-165Ntr [facility] HospitalComment on above:Performed By: #### FT3, CMP, T4, TSH #### [facility] [address] [address] [address] Harvinder Mcgee [Catalytic activity/Vol]13 U/LCritically dum17-79Jdd [facility] HospitalComment on above:Performed By: #### FT3, CMP, T4, TSH #### [facility] [address] [place] [address] Dr. Harvinder Small gap [Moles/Vol]11.6 mmol/LNormalThe [facility] Comment on above:Performed By: #### FT3, CMP, T4, TSH #### [facility] [address] [place] [address] Dr. Harvinder RileyAST [Catalytic activity/Vol]12 U/LCritically vgj63-83Mqq [facility] HospitalComment on above:Performed By: #### FT3, CMP, T4, TSH #### [facility] [address] [place] [address] Dr. Harvinder RileyBilirubin [Mass/Vol]0.1 mg/dLCritically low0.2-1.0The [facility] HospitalComment on above:Performed By: #### FT3, CMP, T4, TSH #### [facility] [address] [place] [address] Dr. Harvinder RileyCalcium [Mass/Vol]8.7 mg/dLNormal8.5-10.1[facility] Comment on above:Performed By: #### FT3, CMP, T4, TSH #### [facility] [address] [address] [address] Harvinder RileyChloride [Moles/Vol]106 mmol/TUhpyye27-377Bvl [facility] Comment on above:Performed By: #### FT3, CMP, T4, TSH #### [facility] [address] [address] [address] Harvinder RileyCO2 [Moles/Vol]27.9 mmol/VCjndfz15.0-32.0The [facility] Comment on above:Performed By: #### FT3, CMP, T4, TSH #### [facility] [address] [place] [address] Dr. Harvinder RileyCreatinine [Mass/Vol]0.87 mg/dLNormal0.55-1.02The [facility] HospitalComment on above:Performed By: #### FT3, CMP, T4, TSH #### [facility] [address] [address] [address] Harvinder EddyGFR-AF TUVALUAN>60Normal>=60The [facility] HospitalComment on above:Performed By: #### FT3, CMP, T4, TSH #### [facility] [address] [place] [address] Dr. Harvinder Navarro-NON AF TUVALUAN>60Normal>=60The [facility] HospitalComment on above:Performed By: #### FT3, CMP, T4, TSH #### [facility] [address] [place] [address] Dr. Harvinder RileyGlobulin (S) [Mass/Vol]3.4 g/dLNormalThe [facility] HospitalComment on above:Performed By: #### FT3, CMP, T4, TSH #### [facility] [address] [place] [address] Dr. Harvinder RileyGlucose [Mass/Vol]108 mg/dLCritically zlyy54-371Nth [facility] HospitalComment on above:Performed By: #### FT3, CMP, T4, TSH #### [facility] [address] [place] [address] Dr. Harvinder RileyPotassium [Moles/Vol]4.5 mmol/LNormal3.5-5.1The [facility] Comment on above:Performed By: #### FT3, CMP, T4, TSH #### [facility] [address] [place] [address] Dr. Harvinder RileyProtein [Mass/Vol]7.1 g/dLNormal6.4-8.2The [facility] Comment on above:Performed By: #### FT3, CMP, T4, TSH #### [facility] [address] [place] [address] Dr. Harvinder RileySodium [Moles/Vol]141 mmol/RFiuewc648-405Qzr [facility] Comment on above:Performed By: #### FT3, CMP, T4, TSH #### [facility] [address] [place] [address] Dr. Harvinder RileyUrea nitrogen [Mass/Vol]12.0 mg/dLNormal7.0-18.0The [facility] HospitalComment on above:Performed By: #### FT3, CMP, T4, TSH #### [facility] [address] [place] [address] Dr. Harvinder RileyUrea nitrogen/Creatinine [Mass ratio]13.8 mg/mgNormalThe [facility] HospitalComment on above:Performed By: #### FT3, CMP, T4, TSH #### [facility] [address] [place] [address] Dr. Harvinder RileyT4on 72-76-4834P1 [Mass/Vol]7.80 ug/dLNormal4.80-13.90The [facility] HospitalComment on above:Performed By: #### FT3, CMP, T4, TSH #### [facility] [address] [place] [address] Dr. Harvinder RileyTSHon 01-61-7554YQG9.959 uIU/mLNormal0.358-3.740The [facility] HospitalComment on above:Performed By: #### FT3, CMP, T4, TSH #### [facility] [address] [place] [address] Dr. Harvinder RileyVITAMIN B12on 54-52-3354Iiejszdhc (Vitamin B12) [Mass/Vol]325.0 pg/oBGmquok942.0-986.0The [facility] HospitalComment on above:Performed By: #### VITB12, IRON, VITAD #### [facility] [address] [place] [address] Dr. Harvinder RileyVITAMIN D 25 OHon 10-25-5323RFQ D 25-OH25.3 ng/mLNormalThe [facility] HospitalComment on above:Performed By: #### VITB12, IRON, VITAD #### [facility] [address] [place] [address] Dr. Harvinder MUJICA [facility] Geneva [facility] CenterComment on above: Result Comment: <20 ng/mL Vit D deficient 20 - <30 ng/mL Vit D insufficient 30 - 100 ng/mL Vit D sufficient >100 ng/mL Potential ToxicityPerformed By: #### VITB12, IRON, VITAD #### [facility] [address] [place] [address] Dr. Harvinder Stephen AUTO DIFFon 40-29-3475SPWX #0.0 103/ulNormal0.0-0.1The [facility] HospitalComment on above:Performed By: #### CBC ####[facility] [address] [place], [place] [address]DrAshley RileyBasophils/100 WBC (Bld)0.4 %Normal0.2-2.0The [facility] HospitalComment on above:Performed By: #### CBC ####[facility] Ophnoksctq[address] [place], [place] [address]DrAshley ChangEO #0.4 103/ulNormal0.0-0.7The [facility] HospitalComdetroit receiving hospital on above:Performed By: #### CBC ####[facility] Ydoxhrulzy[address] [place], [place] [address]DrAshley Eddyosinophils/100 WBC (Bld)3.8 %Normal 0.9-7.0The [facility] HospitalComment on above:Performed By: #### CBC ####[facility] Tubmggfdle[address] [place], [place] [address]DrAshley Riley Erythrocyte distribution width (RBC) [Ratio]14.1 %Wugopu32.0-15.0The [facility] HospitalComment on above:Performed By: #### CBC ####[facility] Fudmibvkxc198[address] [place], [place] [address]DrAshley RileyHematocrit (Bld) [Volume fraction]40.7 %Nimzxc54.0-48.0The [facility] HospitalComment on above:Performed By: #### CBC ####[facility] Xapiusxxtp[address] [place], [place] [address]Dr.Harvinder RileyHemoglobin (Bld) [Mass/Vol]13.2 g/dL Nnvmih84.0-16.0The [facility] HospitalComment on above:Performed By: #### CBC ####[facility] Huczxyfxlk[address] [place], [place] [address]Dr. Harvinder RileyIG #0.03 10e3/ulNormal0.00-0.03The [facility] HospitalComment on above: Performed By: #### CBC ####[facility] Ezshjpcakk02[address] [place], [place] [address]Dr.Harvinder RileyIG %0.3 %Normal0.0-0.5The [facility] HospitalComment on above:Performed By: #### CBC ####[facility] Ucpuvkxsma[address] [place], [place] [address]Dr.Harvinder RileyLYMPH #2.3 103/ulNormal1.2-3.8The [facility] HospitalComment on above:Performed By: #### CBC ####[facility] Qhwfgvfzds[address] [place], [place] [address]Dr. Harvinder RileyLymphocytes/100 WBC (Bld)25.2 %Cjewuh99.5-60.0The [facility] Comment on above:Performed By: #### CBC ####[facility] Uzgmxzvynq6[address] [place], [place] [address]Dr.Harvinder RileyMANUAL DIFF REQNONormalThe [facility] HospitalComment on above:Performed By: #### CBC ####[facility] Dabyxdxxmm850[address] [place], [place] [address]Dr.Harvinder RileySY[facility] (RBC) [Entitic mass]29.3 bvQvrxdp46.7-34.0The [facility] HospitalComment on above: Performed By: #### CBC ####[facility] Uodmnzjodk[address] [place], [place] [address]Dr.Harvinder RileyMCHC (RBC) [Mass/Vol]32.4 g/dLNormal 29.9-35.2The [facility] HospitalComment on above:Performed By: #### CBC ####[facility] Chlpgzwyzl[address] [place], [place] [address]Dr. Harvinder RileyMCV (RBC) [Entitic vol]90.4 oKWtbsvt50.0-99.0The [facility] Comment on above:Performed By: #### CBC ####[facility] Jaozaamfkm08[address] [place], [place] [address]Dr.Harvinder RileyMONO #0.6 103/ulNormal0.3-0.8 The [facility] HospitalComment on above:Performed By: #### CBC ####[facility] Exxokeoqlk[address] [place], [place] [address]Dr.Harvinder Riley Monocytes/100 WBC (Bld)5.9 %Normal1.7-12.0The [facility] HospitalComment on above: Performed By: #### CBC ####[facility] Jdclpeznkm47[address] [place], [place] [address]Dr.Harvinder RileyNEUT #6.0 103/ulNormal1.4-6.5The [facility] HospitalComment on above:Performed By: #### CBC ####[facility] Rwswubqcly[address] [place], [place] [address]Dr.Harvinder RileyNeutrophils/100 WBC (Bld)64.4 %Apvisj40.0-75.0The [facility] HospitalComment on above:Performed By: #### CBC ####[facility] Rkmrtldvjo[address] [place], [place] [address]Dr.Harvinder RileyPlatelet mean volume (Bld) [Entitic vol]9.3 fLCritically low 9.5-13.5The [facility] HospitalComment on above:Performed By: #### CBC ####[facility] Lsdrhmosgq[address] [place], [place] [address]Dr. Sandralan DzilmZYA524 103/jeTlttoo328-486Put [facility] HospitalComment on above: Performed By: #### CBC ####[facility] P[address] [place], [place] [address]Un.Harvinder ChangRBC4.50 106/ulNormal4.20-5.40The [facility] HospitalComment on above:Performed By: #### CBC ####[facility] [address] [address]Dr.Harvinder ChangWBC9.3 103/ul Normal4.0-11.0The [facility] HospitalComment on above:Performed By: #### CBC ####[facility] [address] [address]Dr. Harvinder ChangFREE THYROXINE INDEX T7on 94-83-4732AMJ1.08Ijsdki7.30-4.50The [facility] HospitalComment on above:Performed By: #### TSH, CMP, T7 ####[facility] Mpzdq[address]jqe[address] [place], [place]Dr. Harvinder RileyT3U 32.0 %Dzbrga67.0-39.0The [facility] HospitalComment on above:Performed By: #### TSH, CMP, T7 ####[facility] [address] [address]Dr. Harvinder ChangT4 [Mass/Vol]7.00 ug/dLNormal4.80-13.90The [facility] Comment on above:Performed By: #### TSH, CMP, T7 ####[facility] Jxbpmarbfw50[address] [place], [place]Dr. Harvinder RileyIRONon 73-26-2703Sscs [Mass/Vol]60.0 ug/jNOjthfq95.0-170.0The [facility] HospitalComment on above:Performed By: #### CBC #### [facility] [address] [place], [place] [address] Dr. Harvinder Betancourt 14(COMP METB)on 88-85-6635Qzdmgpq [Mass/Vol]3.7 g/dLNormal 3.4-5.0The [facility] HospitalComment on above:Performed By: #### TSH, CMP, T7 ####[facility] Nxndzbtaop[address] [place], [place] [address]Dr. Yilan ChangAlbumin/Globulin [Mass ratio]1.1 {ratio}NormalThe [facility] Comment on above:Performed By: #### TSH, CMP, T7 ####[facility] L[address]igkignew[address] [place], [place]Dr. Yilan ChangALP [Catalytic activity/Vol]54 U/NJqigna72-735Xhd [facility] HospitalComment on above:Performed By: #### TSH, CMP, T7 ####[facility] [address] [address]Dr. Yilan ChangALT [Catalytic activity/Vol]17 U/LNormal 14-59The [facility] HospitalComment on above:Performed By: #### TSH, CMP, T7 ####[facility] [address] [address]Dr. Yilan ChangAnion gap [Moles/Vol]12.1 mmol/LNormalThe [facility] HospitalComment on above:Performed By: #### TSH, CMP, T7 ####[facility] Iimywnnfjh[address] [place], [place] [address]Dr. Yilan ChangAST [Catalytic activity/Vol]16 U/L Jsueta17-97Evk [facility] HospitalComment on above:Performed By: #### TSH, CMP, T7 ####[facility] Oxikhcdglp5324 [place], [place]Dr. Yilan ChangBilirubin [Mass/Vol]0.3 mg/dLNormal0.2-1.0The [facility] Comment on above:Performed By: #### TSH, CMP, T7 ####[facility] Igorsaiptn[address] [place], [place] [address]Dr. Yilan ChangCalcium [Mass/Vol]8.8 mg/dLNormal8.5-10.1The [facility] HospitalComment on above:Performed By: #### TSH, CMP, T7 ####[facility] [address] [address]Dr. Yilan ChangChloride [Moles/Vol]104 mmol/LNormal 98-107The [facility] HospitalComment on above:Performed By: #### TSH, CMP, T7 ####[facility] Wstfvxganb77[address] [place], [place]Dr. Yilan ChangCO2 [Moles/Vol]26.0 mmol/HXyhwqt67.0-32.0The [facility] HospitalComment on above:Performed By: #### TSH, CMP, T7 ####[facility] Loixgtnvsb[address] [place], [place]Dr. Yilan ChangCreatinine [Mass/Vol]0.77 mg/dLNormal0.55-1.02The [facility] HospitalComment on above:Performed By: #### TSH, CMP, T7 ####[facility] Piwztzhqoe[address] [place], [place] [address]Cw. Yilan ChangEGFR-AF TUVALUAN>60Normal>=60The [facility] HospitalComment on above:Performed By: #### TSH, CMP, T7 ####[facility] Rsgpfrjeiq[address] [place], [place] [address]Dr. Yilan ChangEGFR-NON AF TUVALUAN>60Normal>=60 The [facility] HospitalComment on above:Performed By: #### TSH, CMP, T7 ####[facility] Wtqdxshf[address] [place], [place] [address]Dr. Yilan ChangGlobulin (S) [Mass/Vol]3.5 g/dLNormalThe [facility] HospitalComdetroit receiving hospital on above:Performed By: #### TSH, CMP, T7 ####[facility] Ldstadfuxt[address] [place], [place] [address]Dr. Yilan ChangGlucose [Mass/Vol]111 mg/dL Critically uffb06-270Xsb [facility] HospitalComment on above:Performed By: #### TSH, CMP, T7 ####[facility] Vetlzoexfr[address] [place] [address]Wu. Yilan ChangPotassium [Moles/Vol]4.1 mmol/LNormal3.5-5.1The [facility] HospitalComment on above:Performed By: #### TSH, CMP, T7 ####[facility] Tooxvcztwr[address] [place], [place] [address]Dr. Yilan ChangProtein [Mass/Vol]7.2 g/dLNormal6.4-8.2The [facility] HospitalComment on above:Performed By: #### TSH, CMP, T7 ####[facility] Eaivronodx[address] [place], [place]Dr. Yilan ChangSodium [Moles/Vol]138 mmol/LNormal 136-145The [facility] HospitalComment on above:Performed By: #### TSH, CMP, T7 ####[facility] Cafkmjullm35[address] [place], [place]Dr. Yilan ChangUrea nitrogen [Mass/Vol]14.0 mg/dLNormal7.0-18.0The [facility] Comment on above:Performed By: #### TSH, CMP, T7 ####[facility] Lyhkvgvyxu45[address] [place], [place]Dr. Yilan ChangUrea nitrogen/Creatinine [Mass ratio]18.2 mg/mgNormalThe [facility] HospitalComment on above:Performed By: #### TSH, CMP, T7 ####[facility] Wemwiywsgm57[address] [place], [place]Dr. Harvinder ChangTSHon 56-58-8615YJM1.909 uIU/mL Normal0.358-3.740The [facility] HospitalComment on above:Performed By: #### TSH, CMP, T7 ####[facility] [address] [address]Dr. Harvinder RileyVITAMIN B12on 02-70-7556Jmhtamaid (Vitamin B12) [Mass/Vol] 397.0 pg/kAWpsfuo168.0-986.0The [facility] HospitalComment on above:Performed By: #### CBC #### [facility] [address] [place] [address] Dr. Harvinder RileyVITAMIN D 25 OHon 18-55-2694ABW D 25-OH22.3 ng/mLNormalThe [facility] HospitalComment on above:Performed By: #### CBC #### [facility] [address] [place] [address] Dr. Harvinder Waldron [facility] CenterComment on above: Result Comment: <20 ng/mL Vit D deficient 20 - <30 ng/mL Vit D insufficient 30 - 100 ng/mL Vit D sufficient >100 ng/mL Potential ToxicityPerformed By: #### CBC #### [facility] [address] [address] [address] Harvinder RileyXR LSPINE 2_3 VIEWSon 54-89-0986GF LSPINE 2_3 VIEWSEXAM: XR LSPINE 2_3 VIEWS HISTORY: Low back pain COMPARISON: None. TECHNIQUE: 3 view study FINDINGS: Vertebral bodies and disc spaces are normal in height. There is a mild left convexity curve of the lower lumbar spine seen in frontal projection. IMPRESSION: Mild left convexity curve. No acute finding otherwise is identified. Electronically authenticated by: Lai SEBASTIAN Date: 2022-09-11 00:33[facility] CenterChlam/GC-DNA Amplifiedon 87-80-5866Vkpbb/GC-DNA AmplifiedTest performed at [facility] HospitalChlamydia trachomatis DNA NOT DETECTEDNeisseria gonorrhoeae DNA NOT DETECTEDReference range NOT DETECTEDMethod: Strand Displacement Amplification-BD ProbeTec AssayComment: A negative result does not precludeC.trachomatis or N. gonorrhoeae infection becauseresults are dependent on adequate specimen collection,absence of inhibitors, and sufficient DNA to be detected.[facility] HospitalComment on above:Performed By: #### CTGCA ####[address] [address]FW NOTEon 15-53-4269FG NOTEHNO ID: [id number] Author: Kayla Sanon (Tech) Service: Emergency Medicine Author Type: Oceanography Teacher Type: ED Notes Filed: 05/27/2017 10:24 PM Note Text: Urine specimen obtained and sent.[facility] NOTEHNO ID: [id number] Author: Tarun HuertaRn) GERMÁN Kaur Service: Emergency Medicine Author Type: Registered Nurse Type: ED Notes Filed: 05/27/2017 10:16 PM Note Text: Pelvic exam completed by the ER doctor with pelvic labs and urine collected/sent to lab.[facility] HospitalRapid Bact.Vaginosison 66-58-6466Rehqy Bact.Vaginosissee belowPulaski Memorial Hospital SystemComment on above:Result Comment: Negative for the presence of bacterial vaginosis. Performed By: #### RAPBV ####[facility] [address]Rapid Trichomonas Agon 60-49-0511Asmcu Trichomonas Agsee belowPulaski Memorial Hospital SystemComment on above:Result Comment: No Trichomonas antigen present or the antigen level is belowdetection limit of the assay (2500 organisms/mL).Performed By: #### RAPTR ####[address] [address]Urinalysis Routineon 11-03-0198Is Cells Urine2.4 /hpfNormal0.0-5.0[facility] SystemComment on above: Performed By: #### URIN2 ####[address] [address]Hyaline Cast1.1 /lpfHigh0.0-1.0[facility] SystemComment on above:Performed By: #### URIN2 ####[address] [address]Rkuas, bacteria in sedimentNONE [facility] SystemComment on above:Performed By: #### URIN2 ####[address] [address]Gbwmv, erythrocytes in sediment by area2.5 /[HPF]Normal0.0-5.0[facility] SystemComment on above:Performed By: #### URIN2 ####[address] [address]Kpjcv, leukocytes in sedmiment5.4 /[HPF]High0.0-5.0[facility] SystemComment on above:Performed By: #### URIN2 ####[address] [address] Bilirubin UrineNegativeNormalNegativeIndiana [facility] Hospital SystemComment on above:Performed By: #### URIN2 ####[address] [address]Pvbzvzvapr,UrineNegativeNormalNegativeIndiana [facility] Hospital SystemComment on above:Performed By: #### URIN2 ####[facility] [place], [place] [address]Lhtbtt UrineNegativeNormalNegative [facility] SystemComment on above:Performed By: #### URIN2 ####[facility] [place], [place] [address]Wwsofpmg Urine NegativeNormalNegativeIndiana [facility] Hospital SystemComment on above:Performed By: #### URIN2 ####[facility] [place], [place] [address]Qsuurdn UrineNegativeNormalNegativeIndiana [facility] Hospital SystemComment on above:Performed By: #### URIN2 ####[address] [address]Ofepk, appearanceCLOUDYNormLogansport Memorial Hospital System Comment on above:Performed By: #### URIN2 ####[address] [address]Bvfry, colorYELLOWNormalAkron Norton Community Hospital SystemComment on above:Performed By: #### URIN2 ####[address] [address]Hqxfi, glucose presenceNegative NormalNegativeIndiana [facility] Hospital SystemComment on above:Performed By: #### URIN2 ####[address] [address] Urine, pH6.0 [pH]Normal5.0-8.0[facility] SystemComment on above: Performed By: #### URIN2 ####[address] [address]Fjklougumasi,Ur0.2 EU/dLNormal0.0-1.0[facility] SystemComment on above:Performed By: #### URIN2 ####[address] [address]WHG (Leukocytes)NegativeNormal NegativeIndiana University Health Arnett Hospital SystemComment on above:Performed By: #### URIN2 ####[address] [address]Qngqq HCG, Qual.on 15-63-4746RFK.beta subunit ( test) Ql (U)NegativeNormal NegativeAdams County Regional Medical CenterComment on above:Performed By: #### HCGUR ####[facility] [place], [place] [address]Amhkrkzj [place], Ur1.557Sdcahy8.005-1.030[facility] Medical CenterComment on above: Performed By: #### HCGUR ####[address] [address]Mvjeozxfk By: #### URIN2 ####[address] [address]wi 35-80-201[address]PWJ ID: [id number]: Karmen GarrettService: Emergency MedicineAuthor Type: Physician AssistantType: ED Triage NotesFiled: 05/27/2017 6:26 PMNote Text:ED INTAKE NOTEPatient Name: CrystalMRN: [id number] Date: 05/27/17BRIEF HPI:Patient is a 17 y/o [...] of discharging the patient with dental pain, howevershestarted complaining of vaginal bleeding x 2 weeks using 1 superplustampon an hour and abdominal pain and cramping. Patient reports she isnauseous, but denies vomiting. She reports having two periods in the monthof April 'one in the beginning and one at the end . Due to the newsymptoms, blood work was ordered and she was sent to the waiting room towait for a room that is appropriate for [...] upright in exam chair withher coat on.Neuro: BYEMGi2Pxgj:Warm and dryINTAKE WORKUP:CBC, CMP, Lipase, UA, urine pregnancySIGNATURE: SUSANA Perez-CRRedington-[facility] Comprehensive Panelon 34-55-3083Okivcxkk phosphatase (ALP)61 U/IQvgjqp93-095 [facility] CenterComment on above:Performed By: #### P14 ####[address] [address]Cvehrjklo Ql (U)0.2 mg/dLNormal0.2-1.0[facility] CenterComment on above:Performed By: #### P14 ####[address] [address] Protein7.9 g/dLNormal6.4-8.2ACamden Clark Medical Center SystemComment on above: Performed By: #### P14 ####[address] [address]Dhuzvkc aminotransferase (ALT)14 U/OFifyvq30-41TivszAdams County Regional Medical CenterComment on above:Performed By: #### P14 ####[address] [address]Ojmrdjrji aminotransferase (AST)9 U/LNormal9-37[facility] CenterComment on above:Performed By: #### P14 ####[address] [address] Creatinine0.80 mg/dLNormal0.51-0.95[facility] CenterComment on above: Performed By: #### P14 ####[address] [address]Hkjspig8.9 g/dLNormal3.4-5.0[facility] Comment on above:Performed By: #### P14 ####[address] [address]Cpvbk gap4 mmol/LLow8-16[facility] SystemComment on above:Performed By: #### P14 ####[facility] [place], [place] [address]Lcuohze7.0 mg/dLNormal8.5-10.1ACamden Clark Medical Center SystemComment on above:Performed By: #### P14 ####[facility] [place], [place] [address]ZJ317 mmol/STxnmib04-45VpvtvIndiana University Health Arnett Hospital SystemComment on above:Performed By: #### P14 ####[facility] [place], [place] [address]Mokzhan mass conc96 mg/dL Czthfb51-43DpmwmIndiana University Health Arnett Hospital SystemComment on above:Performed By: #### P14 ####[address] [address]Bpvx zcxblpap91 mg/dLNormal7-18[facility] SystemComment on above:Performed By: #### P14 ####[facility] [place], [place] [address]Ktdkguku580 mmol/OSsyfzl27-727NcrfxIndiana University Health Arnett Hospital SystemComment on above: Performed By: #### P14 ####[facility] [place], [place] [address]Dqlkwtulc molar conc4.0 mmol/LNormal3.5-5.1ACamden Clark Medical Center SystemComment on above:Performed By: #### P14 ####[address] [address]Zxmyop938 mmol/FDuwwxj550-506BochwIndiana University Health Arnett Hospital SystemComment on above:Performed By: #### P14 ####[address] [address]CB PROV NOTEon [phone] PROV NOTEHNO ID: [id number]: LIZ Villanuevaervice: Emergency MedicineAuthor Type: PhysicianType: EDProvider NotesFiled: 08/16/2017 6:21 AMNote Text:ED Provider NotePatient Name: Carrie BernsteinMRN: [id number] DATE: 05/27/17HistoryPatient presents with:Facial Swelling: pt states that her wisdom te eth are coming in and she hasswelling to left side of face, able to handle secretions, no difficultyswallowing. Pt states that she is also having severe menstrual cramps.HPI Comments: Sunni presentsto the emergency room for evaluation ofmultiple complaints. She had been seen for left lower dentalpain, andsome facial swelling ?2 days. She was seen by the mid-level practitioner,and was about to be discharged with Motgovind and Carolina Daniel when she endorsedhaving abdominal pain, cramping ?2 weeks. She endorses bleeding, about 1tampon an hour. She states that she had 2 periods during April, hasbeen having pain since then. She has been in the past, which wasterminated. She has had a cho lecystectomy, but denies other surgeries inher abdomen. She [...] has nausea, without vomiting. Shedenies fevers, chills.History providedby: PatientPAST MEDICAL HISTORYDiagnosis Date- DepressionNo past surgical [...] of breath.Cardiovascular: Negative for chest pain and palpita tions.Gastrointestinal: Positive for abdominal pain, diarrhea and nausea.Negative for constipation and vomiting.Genitourinary: Positive for menstrual problem and vaginal bleeding.Negative for dysuria, frequency, vaginal discharge and vaginal pain.Musculoskeletal: Negative for back pain and neck pain .Skin: Negative for rash and wound.Neurological: Negative for syncope, weakness and numbness.Psychiatric/Behavioral: Negative for self-injury and suicidal ideas.Physical ExamBP 134/52 Pulse 85 Temp (Src) 98.4 (Oral) Resp 16 Ht 5' 4 (1.63m) Wt 180 lb (81.6kg) SpO2 100% LMP 05/27/2017 BMI 30.88 kg/(m2).Physical ExamConstitutional: She is oriented to person, place, and time. She appearswell-developed and well-nourished. No distress.HENT:Head: Normocephalic and atraumatic.Right Ear:External ear normal.Left Ear: External ear normal.Eyes: Pupils [...] is tenderness (diffuse abdominal pain). There is noguarding.Musculoskeletal: Normal range of motion. She exhibits no edema, tendernessor deformity.Neurological: She is alert and oriented to person, place, and time. Nocranial nerve deficit.Skin: Skin is warm and dry. No rash noted. She is not diaphoretic.Psychiatric: She has a normal mood and affect.Nursing note and vitals reviewed.Diagnostic TestingResu lts for orders placed or performed during the hospital encounter of05/27/17COMPREHENSIVE METABOLIC PANEL (AK,AV,EU,FV,HL,WILL,MM,SP)Result Value Ref Range Sodium 137 136 - 145 mEq/L Potassium 4.0 3.5 -5.1 mEq/L Chloride 107 98 - 107 mEq/L [...] Gap 4 (L) 8 - 16LIPASE BLOOD (MD,AV,,FV,HL,WILL,MM,SP)Result Value Ref Range Lipase 151 73 - 393 U/LCBC + AUTO DIFF (MD,AV,EU,FV,HL,WILL,MM,SP)Result Value Ref Range WBC 10.05 (H) 3.98 [...] 0.62 0.27 - 0.70 thou/cmm Eosinophil # 0.32(H) 0.00 - 0.31 thou/cmm Basophil # 0.04 0.01 - 0.08 thou/cmmURINALYSIS WITH MICROSCOPIC (MD,AV,EU,FV,HL,WILL,MM,SP)Result Value Ref Range Color YELLOW Urine Appearance CLOUDY Glucose, Urine NEGATIVE Negative mg/dL Ketones, Urine NEGATIVE Negative mg/dL Hemoglobin, Urine NEGATIVE Negative Protein, Urine NEGATIVE Negative mg/dL Nitrites Urine NEGATIVE Negative Bilirubin, Urine NEGATIVE Negative Specific [place], Ur 1.028 1.005 - 1.030 pH, Urine 6.0 5.0 - 8.0 Urobilinogen, Urine 0.2 0.0 - 1.0 EU/dLLeukocytes Esterase NEGATIVE Negative RBC, Urine 2.5 0.0 - 5.0 /hpf WBC, Urine 5.4 (H) 0.0 - 5.0 /hpf EP Cells Urine 2.4 0.0 - 5.0 /hpf Bacteria, Urine NONE None Hyaline Cast 1.1 (H) 0.0 - 1.0 /lpfHCG QUALITATIVE URINE (AK,AV,EU,FV,HL,WILL,MM,SP)Result Value Ref Range HCG Qualitative, Urine Negative Negative Specific [place], Ur 1.028 1.005 - 1.030MDRD GFRResult Value Ref Range eGFR >60 >60mL/min/1.66z4QELHHNG, BLOOD (POC)Result Value Ref Range GLUCOSE METER 97 70 - 99 mg/dLRAPID BACT VAGINOSIS (AK)Result Value Ref Range Rapid Bact.Vaginosis see belowTRICHOMONAS PREP (AK,AV,EU,FV,HL,WILL,MM,SP)Result Value Ref Range Rapid Trichomonas Ag see belowProceduresMedical Decision Making / ED CourseED CoursePatient presents to the emergency room for evaluation of multiplecomplaints, initially seen for dental pain, now endorsing diffuseabdominal cramping, vaginal bleeding. Concern is for dysmeno rrhea,dysfunctional uterine bleeding, threatened miscarriage. Physical examnotable for normal heartrate, no acute distress, diffuse abdominaltenderness without rebound, [...] leave, and was escorted outof the emergency department .Encounter Diagnosis ICD-10-CM1. Dental abscess K04.72. Generalized abdominal pain R10.843. Abnormal vaginal bleeding N93.9PlanThe Patient was DISCHARGED: Counseled patient regarding suspecteddiagnosis AND need for follow-up. Discharged home with verbal and writteninstructions. They were instructedto return as needed for persistent orworsening symptoms or any new concerns.Condition at time of disposition: stableSIGNATURE: Martine Trejo (Res) Dre, RUImwwvlfg01/06/18 2124AttendingNoteI evaluated the patient and personally participated in the turcios components. I agree with the resi dent's findings and plan as documented and havediscussed the case and management of the patient's care with the resident.I was personally present and supervised turcios portions of all procedures.17 yearold female presents with multiple complaints. Evaluated by [facility] for dental pain and was to be treated with abx and motrin forpossible abscess. WHen she became upset that she needed something strongerfor pain, she then relayed abd pain x2 weeks and vaginal bleeding. Noother GI symptoms, urinarysymptoms or vaginal discharge. abd pain isapparently 10/10 despite not wanting this complaint worked up duringevaluation of tooth pain initially.VS reviewedCVS: RRRLungs: CTABAbd: soft, ND, diffuse mi ld general TTP, no PSPt presents for evaluation of multiple complaints. Afebrile, nontoxic, HDstable. HCG neg, doubt ectopic. Pelvic exam and cultures performed w/osignificant findings. No significant leukocytosis, JUAN or transaminitis.DOubt vlad, appy, or pancreatitis. I find no indication for cassandra ging atthis time. Pt had to be escorted from ER after she became disruptive whentold she would not receive opiates. F/u to PCP. Symptoms that shouldprompt return to the Emergency Department were discussed and understandingverbalized. Discharged in stable condition.Signature: DANIEL Villanuevaate: 08/16/2017Time: 6:15 Jayna Pinzon MD08/16/17 0621M[facility]ocket Regional HospitalGlucose Meteron 04-05-9268Zsntugh mass conc97 mg/iRSddoev26-45KmmzeIndiana University Health Arnett Hospital SystemComment on above:Performed By: #### GLMET ####[address] [address]Torazjry/Diffon 31-55-3569Lvc Immature Grans0.05 thou/cmmNormal0.00-0.05[facility] SystemComment on above:Performed By: #### CBCD1 ####[address] [address]Xvq. Baso0.04 thou/cmmNormal0.01-0.08[facility] SystemComment on above:Performed By: #### CBCD1 ####[address] [address]Yun. Mono0.62 thou/cmmNormal 0.27-0.70[facility] CenterComment on above:Performed By: #### CBCD1 ####[address] [address]Fql. Neut 6.54 thou/cmmHigh1.56-6.13[facility] SystemComment on above:Performed By: #### CBCD1 ####[address] [address]Qlnqtxxgk/100 WBC Auto (Bld)0.4 %NormalAdams County Regional Medical CenterComment on above:Performed By: #### CBCD1 ####[address] [address]Vhgfipawupu5.32 thou/cmmHigh0.00-0.31[facility] Medical CenterComment on above:Performed By: #### CBCD1 ####[address] [address]Lbuqdhzmiaz/100 leukocytes 3.2 %NormalAdams County Regional Medical CenterComment on above:Performed By: #### CBCD1 ####[address] [address] Erythrocyte distribution width Auto Ratio (RBC)13.8 %Gcvrqj68.7-14.4[facility] SystemComment on above:Performed By: #### CBCD1 ####[facility] [place], [place] [address]Buqdrmmimunb (RBC)4.51 mil/cmmNormal3.93-5.22[facility] Medical CenterComment on above:Performed By: #### ELVIAD1 ####[facility] [place], [place] [address]Qvyuajsqin (HCT)39.4 %Tnlkrb33.1-44.9ACamden Clark Medical Center SystemComment on above:Performed By: #### CBCD1 ####[facility] [place], [place] [address]Tcmjapgegd mass conc (Bld)12.8 g/zHHkvgvt17.2-15.7AMaury Regional Medical Center, ColumbiaComment on above:Performed By: #### ELVIAD1 ####[address] [address]Ektowlgd Grans0.50 %Normal [facility] Medical CenterComment on above:Performed By: #### ELVIAD1 ####[address] [address]Rcidzqckced5.47 thou/cmmNormal1.18-3.74[facility] Medical CenterComment on above:Performed By: #### ELVIAD1 ####[address] [address]Yywbvxfpuxk/100 hjwqynebyo48.6 %NormalAdams County Regional Medical CenterComment on above:Performed By: #### CBCD1 ####[address] [address]WCK27.4 hcMurndd98.6-32.2AMaury Regional Medical Center, [place] Comment on above:Performed By: #### CBCD1 ####[address] [address]MPIT mass conc (RBC)32.5 %Znsgae81.6-34.8 [facility] CenterComment on above:Performed By: #### CBCD1 ####[address] [address]ZXR57.4 fLNormal 79.4-94.8[facility] [facility] SystemComment on above:Performed By: #### CBCD1 ####[facility] [place], [place] [address] Monocytes/100 leukocytes6.2 %NormalIndiana University Health Arnett Hospital SystemComment on above: Performed By: #### CBCD1 ####[facility] [place], [place] [address]Gecakyji mean volume (PMV)9.8 fLNormal9.4-12.3ACamden Clark Medical Center SystemComment on above:Performed By: #### CBCD1 ####[address] [address]Woxkrpeqx446 thou/cmm Qbfaxs202-165KuxrwIndiana University Health Arnett Hospital SystemComment on above:Performed By: #### CBCD1 ####[address] [address]NAQ SD43.8 viZdqabt04.4-46.3ACamden Clark Medical Center SystemComment on above:Performed By: #### CBCD1 ####[address] [address]Jxd Nawzwnfvca42.1 %NormalIndiana University Health Arnett Hospital SystemComment on above: Performed By: #### CBCD1 ####[address] [address]DKI (Leukocytes)10.05 thou/cmmHigh3.98-10.04[facility] Medical CenterComment on above:Performed By: #### CBCD1 ####[address] [address]Ghyadu Bloodon 05-27-2017 Lipase Nuasr183 U/KLgokxt61-244GmfbwIndiana University Health Arnett Hospital SystemComment on above: Performed By: #### LIP ####[address] [address]PFLL GFRon 81-90-1437pHHZ (non-black)mL/min/{1.73_m2} Normal>60mL/min/1.03n2GwnvhIndiana University Health Arnett Hospital SystemComment on above:Result Comment: If the patient is , multiply the result by 1.210. Performed By: #### GFR ####[address] [place] Avenue[place], [place] [address] Vital Signs Date TimeVital SignValuePerforming MhcnjrarhNonulept65-76-7369 14:09-0400Body mass index (BMI) [Ratio]37.42 kg/i9Twyef Yoshi DO Work Phone: [facility] CenterEcofdzawzo91-99-7018 14:09-0400Body yiyzcn69.88 kgCorey Yoshi DO Work Phone: [facility] CenterCwjxyxmowb68-35-5758 14:09-0400Diastolic blood mapyyjwb85 mm[Hg]Bennett Yoshi DO Work Phone: [facility] CenterZrhdsuutyp93-57-4976 14:09-0400Systolic blood xuxpphpi268 mm[Hg]Bennett Yoshi DO Work Phone: [facility] CenterPicjptedyy10-79-7541 12:35-0500Body temperature 97.81 [degF]Infusion 11 Work Phone: [facility]01-28-2025 12:35-0500Diastolic blood odhbzual65 mm[Hg]Infusion 11 Work Phone: [facility]01-28-2025 12:35-0500Heart rate98 /min Infusion 11 Work Phone: [facility]01-28-2025 12:35-0500Systolic blood ewbyimmn431 mm[Hg]Infusion 11 Work Phone: [facility]01-01-2025 11:23-0500Body ramizk584.6 cmTrue Pedroza MD Work Phone: [facility]01-01-2025 11:23-0500Body mass index (BMI) [Ratio]37.76 kg/m2True ePdroza MD Work Phone: [facility]01-01-2025 11:23-0500Body ectucvikxmo26.7 [degF]True Pedroza MD Work Phone: [facility]01-01-2025 11:23-0500Body biwxkd52.79 kgTrue Pedroza MD Work Phone: [facility]01-01-2025 11:23-0500Diastolic blood xnrauwdq94 mm[Hg]True Pedroza MD Work Phone: [facility]01-01-2025 11:23-0500Heart rate88 /Lizeth Pedroza MD Work Phone: [facility]01-01-2025 11:23-0500 Respiratory rate16 /Lizeth Pedroza MD Work Phone: [facility]01-01-2025 11:23-2228GjS3% (BldA) [Mass fraction]100 %True Pedroza MD Work Phone: [facility]01-01-2025 11:23-0500Systolic blood qmshfxri126 mm[Hg]True Pedroza MD Work Phone: [facility]11-14-2024 11:17-0500Diastolic blood xqynoazn30 mm[Hg]Ahmet Meneses MD Work Phone: [phone]11-14-2024 11:17-0500Heart rate60 /Tomi Meneses MD Work Phone: [phone]11-14-2024 11:17-0500 Respiratory rate13 /Tomi Meneses MD Work Phone: [phone]11-14-2024 11:17-6534JzB4% (BldA) [Mass fraction]100 %Ahmet Meneses MD Work Phone: [phone]11-14-2024 11:17-0500Systolic blood ytkwhluu507 mm[Hg]Ahmet Meneses MD Work Phone: [phone]11-14-2024 09:59-0500Body islaju501.6 cmAhmet Meneses MD Work Phone: [phone] [facility] HospitalGlokalise [facility] InstituteHmhgdp83-86-1524 09:59-0500Body mass index (BMI) [Ratio]37.76 kg/l0SuqhbmAhmet Meneses MD Work Phone: [facility]11-14-2024 09:59-0500Body avvwaekfwds67.2 [degF]Ahmet Meneses MD Work Phone: [facility]11-14-2024 09:59-0500Body cnqoom39.79 kgJolayne Meneses MD Work Phone: [facility]09-16-2024 14:49-0400Body mass index (BMI) [Ratio]37.39 kg/x6Kmqkp Yoshi DO Work Phone: [place] [address]Jxaljagfdc02-12-7892 14:49-0400Body jflxwu15.79 kgCorey Yoshi DO Work Phone: [facility] CenterVovdinzvxh57-83-4674 14:49-0400Diastolic blood ftukmuyc79 mm[Hg]Bennett Yoshi DO Work Phone: [place] [address]Ustsbmlhkz22-61-6895 14:49-0400Systolic blood ilhyxhpl521 mm[Hg]Bennett Yoshi DO Work Phone: [facility] CenterRotedzthkt28-09-7102 13:49-0400Body ulhofr045.6 cmCorey Yoshi DO Work Phone: [facility] CenterDzmzwhbbyy09-79-0007 13:49-0400Diastolic blood dvujlhes48 mm[Hg]Bennett Ysohi DO Work Phone: [place] [address]Cfmmenbcll90-65-5810 13:49-0400Systolic blood stguljgq771 mm[Hg]Bennett Yoshi DO Work Phone: [facility] CenterJchpbshowi81-63-6543 14:30-0400Body temperature 99.1 [degF]Infusion 9 Work Phone: [facility]07-30-2024 14:30-0400Diastolic blood jrncufxn69 mm[Hg]Infusion 9 Work Phone: [facility]07-30-2024 14:30-0400Heart rate91 /min Infusion 9 Work Phone: [facility]07-30-2024 14:30-0400Systolic blood dbbdxaqx817 mm[Hg]Infusion 9 Work Phone: [facility]07-16-2024 15:35-0400Body temperature 98.2 [degF]Infusion 5 Work Phone: [facility]07-16-2024 15:35-0400Diastolic blood wzsvytay04 mm[Hg]Infusion 5 Work Phone: [facility]07-16-2024 15:35-0400Heart jeii549 /minInfusion 5 Work Phone: [facility]07-16-2024 15:35-0400Systolic blood mm[Hg]Infusion 5 Work Phone: [facility]07-16-2024 12:15-7458NdA8% (BldA) [Mass fraction]100 %Infusion 5 Work Phone: [facility]06-03-2024 14:01-0400Body mpukct182.6 cmMegan Leblanc COATER OPERATOR.CUTTER OPERATOR HELPER Work Phone: [facility]06-03-2024 14:01-0400Body mass index (BMI) [Ratio]35.74 kg/g6Wukwa Leblanc COATER OPERATOR.CUTTER OPERATOR HELPER Work Phone: [facility]06-03-2024 14:01-0400Body qpzlep17.5 kgMegan Leblanc COATER OPERATOR.CUTTER OPERATOR HELPER Work Phone: [facility]04-30-2024 07:36-0400Body lpdnuf765.6 cmSonya Holloway MD Work Phone: c[facility] CenterNedapn29-88-0601 07:36-0400Body mass index (BMI) [Ratio]35.02 kg/u6UevnrfSonya Holloway MD Work Phone: [phone] Southeastern Medical CenterXqnseu63-36-6125 07:36-0400Body .53 kgDameaghan Holloway MD Work Phone: [place] Ptpkgf78-77-2587 07:36-0400Diastolic blood narddmaa04 mm[Hg]Sonya Holloway MD Work Phone: [place] Upfyqh16-47-6998 07:36-0400Heart rate94 /min Sonya Holloway MD Work Phone: [place] Lghpwx51-19-1016 07:36-0400Systolic blood pitxqmcu187 mm[Hg]Sonya Holloway MD Work Phone: [place] Bzpgfq84-28-8601 11:20-0400Diastolic blood ngximuyd77 mm[Hg]MOSAIC TILE MAKER-C Julia Mcguire Work Phone: [phone] [place], [place] [address]104-04-2024 11:20-0400 Heart rate61 /minNP-C Julia Gomezmer Work Phone: [phone] [place], [place] [address]104-04-2024 11:20-0400 Systolic blood eyawzksx643 mm[Hg]MOSAIC TILE MAKER-C Julia Gomezmer Work Phone: [phone] [place], [place] [address]-20-2023 17:04-0400 Heart rate65 /minNP-C Rosa M Mirlandey Work Phone: [phone]05-20-2023 16:59-0400 Diastolic blood naajnpmy26 mm[Hg]MOSAIC TILE MAKER-C Rosa M Luby Work Phone: [phone]05-20-2023 16:59-0400 Respiratory rate18 /minNP-C Rosa M Luby Work Phone: [phone])937-[address] [place], [place] [address]05-20-2023 16:59-0400 SaO2% (BldA) [Mass fraction]99 %MOSAIC TILE MAKER-C Rosa M Luby Work Phone: [phone] [place], [place] [address]05-20-2023 16:59-0400 Systolic blood jaendihe273 mm[Hg]MOSAIC TILE MAKER-C Rosa M Luby Work Phone: [phone]05-20-2023 14:58-0400 Body ghwasg197.56 cmNP-C Rosa M Luby Work Phone: [facility]05-20-2023 14:58-0400 Body hvxhoonjwxe19 [degF]MOSAIC TILE MAKER-C Rosa M Andersen Work Phone: [facility]05-20-2023 14:58-0400 Body atqmhz81 kgNP-C Rosa M Andersen Work Phone: [facility] Encounters Encounter DateEncounter TypeCare ProviderFacilityStart: 34-06-4929zavgxwvefmalana MARCUSFacility:[facility] Hospitaltart: 03-13-2025 End: 49-63-7132Fnvrgb flowsheetCorey Yoshi DO Work Phone: [facility] [place] OBGYNStart: 03-13-2025 End: 62-90-3411Qrpqer flowsheetCorey Yoshi DO Work Phone: [facility] [place] OBGYNStart: 03-13-2025 End: 13-34-4943clhijcicozNSTCL FAZIONot AvailableStart: 03-13-2025 End: 97-40-2186Avwwiz outpatient visit 15 minutesCorey Yoshi DO Work Phone: [facility] [place] OBGYNComment on above:Menorrhagia with irregular cycle; Cold soreStart: 01-22-2025 End: 01-96-0289CjeyayVdyDarryl Fierro MD Work Phone: [facility] CenterComment on above:Refill RequestStart: 01-02-2025 End: 39-21-7911uvffrjvmxfPXLJUNQQ SEDLAKFacility:[facility] Hospitaltart: 01-02-2025 End: 60-35-9345Vtjhibk encounter procedureMoriah Marcus APRN.CNP Work Phone: [facility] CenterComment on above:Multiple sclerosis (HCC) (Primary Dx); Encounter for long-term (current) use of medications; Spasticity; Ataxia; Mid back painStart: 12-31-2024 End: 67-09-2521Ikcyogmav encounterMoriah Marcus COATER OPERATOR.CUTTER OPERATOR HELPER Work Phone: mellen CenterComment on above:Appointment (Please contact patient to schedule a virtual visit with Rae Ritter in 1 month and to move her June infusion and appointment to the same day vm was left)Start: 12-26-2024 End: 90-68-3711bmqbcwzaycJODASC R ABBATEMARCOFacility:[facility] Start: 12-04-2024 End: 27-78-0761Bjmadd OnlyMoriah Marcus COATER OPERATOR.CUTTER OPERATOR HELPER Work Phone: [facility] CenterStart: 11-20-2024 End: 24-88-6297Mejoqsrry encounterSonya Holloway MD Work Phone: [facility] CenterComment on above:Appointment (Left voicemail regarding scheduling follow up appointment with Amie fellow on 12/19infusion date. Scheduling number included for call back.)Start: 10-24-2024 End: 26-77-4850VysxciUirmrxtz L Sedlak COATER OPERATOR.CUTTER OPERATOR HELPER Work Phone: [facility] CenterComment on above:Opened In ErrorStart: 10-22-2024 End: 54-93-7693TuerudXlllr Graham MD Work Phone: [facility] CenterComment on above:Refill RequestStart: 10-04-2024 End: 25-45-4717Ovmdcfram encounterMontsrodríguez AMEZCUA BCP OBStart: 09-27-2024 End: 94-97-2427WtrajdJayew Graham MD Work Phone: [facility] CenterComment on above:Refill RequestStart: 09-19-2024 End: 62-80-4201BhyivlBrfon Graham MD Work Phone: [facility] CenterComment on above:Refill RequestStart: 09-04-2024 End: 79-81-1848Bwoaqhgnr encounterAmauri Garcia Research CoordinatorJohn Paul Jones Hospital MSComment on above:Research F/UStart: 09-03-2024 End: 77-51-7092Lthnnbyxn encounterMegan Roser Research [facility] for MSComment on above:Research F/UStart: 07-27-2024 End: 81-45-1400Wwulonjyu encounterMegan Roser Research [facility] for MSComment on above:Research F/UStart: 07-24-2024 End: 29-30-0618Moksraysi encounterMegan Roser Research [facility] for MSComment on above:Research F/URefill RequestStart: 07-23-2024 End: 21-27-6379Tqgdfqhnb encounterMegan Roser Research [facility] for MSComment on above:Research F/UStart: 07-16-2024 End: 07-20-7678Ntcmlxfeh encounterMegan Roser Research [facility] for MSComment on above:Research F/UStart: 07-11-2024 End: 34-51-1658Bbcfttcos encounterMegan Roser Research [facility] for MSComment on above:Research F/UStart: 07-05-2024 End: 92-98-4417Snrmjbntt encounterMegan Roser Research [facility] for MSStart: 07-03-2024 End: 88-17-0844CebdxnBgbnh Graham MD Work Phone: [facility] CenterComment on above:Refill RequestStart: 06-19-2024 End: 74-28-8293odkpyoklpkEfvlwonf [place] [address] Work Phone: Multiple SclerosisComment on above:Progressive multiple sclerosis (HCC) (Primary Dx)Start: 06-06-2024 End: 63-15-9671Tuwmjw Mary Marcus 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 Work Phone: [facility] CenterStart: 06-04-2024 End: 17-08-1047Uscdkbfyt encounterMegan Roser Research [facility] for MSComment on above:Research F/UStart: 05-31-2024 End: 07-50-2345Oxkakcgll encounterMegan Roser Research [facility] for MSComment on above:Research F/UStart: 05-23-2024 End: 34-25-2304Unpkfyimj department patient visitTrue Pedroza MD Work Phone: [facility] Emergency DepartmentComment on above: Urinary tract infection without hematuria, site unspecified (Primary Dx); Encounter for medication refillStart: 05-22-2024 End: 36-99-9501JvvwhaJoace Graham MD Work Phone: [place] CenterComment on above:Refill RequestStart: 05-21-2024 End: 69-22-6988Noghwanvp encounterMecatherine Garcia [facility] MSComment on above:Research F/UStart: 05-07-2024 End: 67-68-7149cxpoduhdxsQhprv [facility] for [place] Comment on above:7T Spine StudyStart: 05-07-2024 End: 18-16-9250S-mail encounter from Blanca Garcia [facility] Hospitaltart: 05-04-2024 End: 11-52-7687zoyyzhcrplTGSUJ KABBURFacility:[facility] HospitalStart: 05-04-2024 End: 11-17-0587Cgwopk outpatient new 45 minutesNazanin Hansen MD Work Phone: DermatologyComment on above:Hidradenitis suppurativa (Primary Dx)Start: 04-18-2024 End: 66-70-1410FlwlqbTonvr Graham MD Work Phone: [place] CenterComment on above:Refill RequestStart: 04-17-2024 End: 79-90-7952VzmsddAcyboiHilario Holloway MD Work Phone: [facility] CenterComment on above:Refill RequestStart: 04-05-2024 End: 42-87-7666Hcckfbrlt department patient visitAhmet Meneses MD Work Phone: [facility] EDComment on above:Nausea and vomiting, unspecified vomiting type (Primary Dx); Acute cystitis with hematuria; Diarrhea, unspecified typeStart: 03-14-2024 End: 80-30-2917vxwrmgouykPnodwc Ontaneda MD Work Phone: mellen CenterComment on above:Multiple sclerosis (HCC) (Primary Dx)Start: 03-14-2024 End: 90-33-6190Nrbucvhyydpa consultation with Diane Holloway MD Work Phone: mellen CenterStart: 03-02-2024 End: 99-17-4562Cdetprlxg Result EncounterCorey Yoshi DO Work Phone: noms External Department UnsolicitedStart: 03-02-2024 End: 14-43-3213Ofbfllteh Result EncounterCorey Yoshi DO Work Phone: noms External Department UnsolicitedStart: 03-02-2024 End: 36-82-7486aocqdxsvcpHaeqj FazioFiK[facility] Work Phone: Start: 03-02-2024 End: 05-35-7223Ajbvojjx ReferredDO Bennett Yoshi Work Phone: [facility] Path Spec Maria Luisa HospStart: 02-29-2024 End: 40-54-3155fwudkrgunyBtcbr Dewitt-Foy MD Work Phone: UrologyStart: 02-22-2024 End: 33-50-0105Qrkrhptiy Result EncounterCorey Yoshi DO Work Phone: noms External Department UnsolicitedStart: 02-22-2024 End: 18-71-6778Snxdymepa Result EncounterCorey Yoshi DO Work Phone: noms External Department UnsolicitedStart: 02-13-2024 End: 88-78-5280IveefxCyffrjwsRoss Marcus APRN.CNP Work Phone: mellen CenterComment on above:Refill RequestStart: 02-06-2024 End: 59-94-6166Ffwchr outpatient visit 15 minutesCorey Yoshi DO Work Phone: NOGV BCP OBComment on above:Pre-op examination; Request for sterilizationStart: 02-06-2024 End: 86-41-3129Liahalhpjwhbd examination doneCorey Yoshi DO Work Phone: [facility] HealthcareStart: 02-06-2024 End: 22-10-9104Gpmuya flowsheetCorey Yoshi DO Work Phone: [facility] BCP OBStart: 02-06-2024 End: 35-02-8951Lmzqka flowsheetCorey Yoshi DO Work Phone: noms BCP OBStart: 01-25-2024 End: 23-61-4312wxzuejmxrrZvbeht Warminski COATER OPERATOR.CUTTER OPERATOR HELPER Work Phone: UrologyStart: 01-25-2024 End: 67-95-7933Pagsevf encounter procedureNeeru Sifuentes COATER OPERATOR.CUTTER OPERATOR HELPER Work Phone: UrologyComment on above:Urinary hesitancy (Primary Dx); Frequent UTIStart: 01-24-2024 End: 99-43-0826Leiazd OnlyJai Ordoñez MD Work Phone: mellen CenterComment on above:Attention deficit hyperactivity disorder (ADHD), unspecified ADHD type (Primary Dx); Depression, unspecified depression typeStart: 01-09-2024 End: 39-23-2602Oosscb outpatient visit 15 minutesCorey Yoshi DO Work Phone: noms [facility] OBComment on above:Sterilization consult Start: 01-07-2024 End: 79-53-2977Nxchgyupz encounterJai Ordoñez MD Work Phone: NeurologyComment on above:Appointment (Called to assist patient in scheduling pain, psychology, MRIs, and follow-up visit with Dr. Holloway (preferably a Tuesday afternoon and the same day as her MRI). LVM with phone numberto call when ready to schedule)Start: 01-04-2024 End: 12-76-8128spootcrxjkWnqmaiGilberto Holloway MD Work Phone: mellen CenterComment on above:Multiple sclerosis (HCC) (Primary Dx); Urinary retention; Paraplegia (HCC); Neuropathic pain; Recurrent UTIStart: 01-04-2024 End: 97-25-6857Bxbqokxwjnxz consultation with Diane Holloway MD Work Phone: mellen CenterStart: 58-97-0649EiscxtNlqkjqetRoss Marcus 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 Work Phone: [phone] CenterComment on above:Refill RequestStart: 62-28-0926NghlcxDkpga Amin MD Work Phone: [phone] CenterComment on above:Refill RequestStart: 12-20-2023 End: 31-25-8570yojcmhnxufJgohdhvi Perico Chair 9 Work Phone: Multiple SclerosisComment on above:Progressive multiple sclerosis (HCC) (Primary Dx)Start: 00-82-7784PwafghFesfm Toljan MD Work Phone: [phone] CenterComment on above:Refill RequestStart: 12-06-2023 End: 06-23-9541rvudidquvwOlrjvcwo [place] Chair 5 Work Phone: Multiple SclerosisComment on above:Progressive multiple sclerosis (HCC) (Primary Dx)Start: 69-06-0881BhakewKeiko Vyas MD Work Phone: mellen CenterComment on above:Demyelinating disease of central nervous system (HCC) (Primary Dx)Forms ([employer] form faxed back to [phone])Start: 40-42-5959KxechzGfysrxoh L Sedlak COATER OPERATOR.CUTTER OPERATOR HELPER Work Phone: [phone] CenterComment on above:Refill RequestStart: 11-21-2023 End: 83-41-1389nfiazipglzKTODIG S CRAMERProMedica Graham HospitalStart: 21-54-7375jgjaruddueBpnovc Ontaneda MD Work Phone: mellen CenterComment on above:Anxiety medicationStart: 84-18-5984KtarehRvkmu Amin MD Work Phone: mellen CenterComment on above:Refill RequestStart: 11-04-2023 End: 42-35-9305rcwyolsnxhAvogvzAllen Matamoros APRN.CNP Work Phone: mellen CenterComment on above:Multiple sclerosis (HCC) (Primary Dx)Start: 11-04-2023 End: 51-40-6366Vwmdpxaaiogj consultation with Sara Matamoros APRN.CNP Work Phone: mellen CenterStart: 94-05-3791Q-mail encounter from Clayton Purvis MD Work Phone: NeurologyStart: 47-16-8024Rqxynvc encounter procedure Kayleigh Purvis MD Work Phone: NeurologyComment on above:AppointmentStart: 10-28-2023 End: 51-63-8268ybfcxullciPskbj Amin MD Work Phone: mellen CenterComment on above:Multiple sclerosis (HCC) (Primary Dx); Other chronic pain; Progressive multiple sclerosis (HCC); Myelitis (HCC)Start: 10-28-2023 End: 66-39-4396Bvyurwsjsgul consultation with Aime Purvis MD Work Phone: mellen CenterStart: 11-09-8317Jbnsroifv encounterAmauri Leblanc APRN.CNP Work Phone: [facility] InstituteComment on above:Saxophone Teacher - OtherPatient Question (Patient is requesting to review recent MRI because she has questions about lesions)Start: 14-63-9801lwbmplktiwCIRNKC ONTANEDA Facility:[facility] Centertart: 10-25-2023 End: 69-88-6835Wwltctdjxc hospital visit by physicianMri [facility] (1.5t)RADIO MRI [facility] HEALTH SYSTEMComment on above:Demyelinating disease of central nervous system (HCC) [G37.9]Start: 10-24-2023 End: 67-03-3350Zwnoned encounter procedureAmauri Leblanc APRN.CNP Work Phone: spine InstituteComment on above:Myelopathy (HCC) (Primary Dx); Spinal cord lesion (HCC); Noble's reflexStart: 49-31-5806Iqdwgoajo encounterKayleigh Purvis MD Work Phone: mellen CenterComment on above:Patient Question (Need something for MRI's tomorrow)Start: 22-38-8275Ykqgntxry encounterAmauri Leblanc APRN.CNP Work Phone: spine InstituteComment on above:Saxophone Teacher - OtherStart: 10-21-2023 End: 45-07-2390afihfugwmjOEZIZY S [facility] HospitalStart: 83-01-6608Fzepmhnbh encounterSelfFormerly [facility] Brain Tumor CenterComment on above: Triage (Internal Referral)Start: 10-11-2023 End: 44-06-9937xagkzpmhvgQTATZSWEncompass Health Rehabilitation Hospital of Altoonatart: 10-07-2023 End: 36-00-9671ezgxlrdgjyOVQGCMGSeaview Hospitaltart: 10-07-2023 End: 68-34-4680Jculkawzqq hospital visit by physicianSaturnino MATTHEWS LaboratoryStart: 10-04-2023 End: 91-98-4181vgjfnvqsbhDvjga Amin MD Work Phone: mellen CenterComment on above:Visit todayDemyelinating disease of central nervous system (HCC) (Primary Dx); Spinal cord lesion (HCC)Start: 24-76-7529S-mail encounter from Clayton Purvis MD Work Phone: mellen CenterStart: 10-04-2023 End: 78-63-4265Fhzslkrpjmye consultation with Diane Holloway MD Work Phone: mellen CenterStart: 19-28-3558Wupommrot encounterKayleigh Purvis MD Work Phone: mellen CenterStart: 09-30-2023 End: 15-69-6512tcqmiamxfnNXOVNKHEmmanuel Guzmancy Hawkeye HospitalStart: 09-28-2023 End: 89-44-2893mecopfrzgvVSHMGQOG [facility] HospitalStart: 39-09-4641snszlwkfwxTma ProviderMedical RecordsComment on above:Questionnaire SubmissionStart: 59-94-8378D-mail encounter from [facility] ProviderMedical RecordsStart: 09-20-2023 End: 44-25-6585Rkbhgwn encounter procedureDameaghan Holloway MD Work Phone: mellen CenterComment on above:Myelopathy (HCC) (Primary Dx); Urinary hesitancy; Spinal cord lesion (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) Start: 09-62-2408Dishywmas encounterMoeliseo Purvis MD Work Phone: mellen CenterStart: 09-15-2023 End: 05-66-9602Dzijvbp encounter procedureNP-C Julia Mcguire Work Phone: [facility]-Lab Main Jbphh Work Phone: Start: 09-15-2023 End: 64-46-6469mknumivpifWL-C Julia Mcguire Work Phone: [facility] Work Phone: Start: 09-07-2023 End: 74-10-0996dwtizgqwtqFLNJSYPomerene Hospitaltart: 08-26-2023 End: 44-50-6983estvoteoioVejpow Isela Segura [facility] Start: 08-25-2023 End: 27-08-8185Mrkbjutfew RecurringNP-C Julia Mcguire Work Phone: [facility]-Infusion Therapy - O/P Work Phone: Start: 08-25-2023 End: 21-94-6791uqssorapndUV-C Julia Mcguire Work Phone: [facility] Work Phone: Start: 52-40-7601ldtdbbblpuAjuZovvem Hospital Ambulatory PPGStart: 08-22-2023 End: 30-41-5980xylynflnwgJYTQCBParkview Health Bryan Hospitaltart: 04-06-2023 End: 36-95-0365Hbgklxpscb and management of inpatientRichard Visci Facility:[facility] Hospitaltart: 12-09-2022 End: 87-14-3781snstsqjrteFO-C Rosa M Andersen Work Phone: [facility] Work Phone: Start: 12-09-2022 End: 57-74-5048Clxcfzb encounter procedureNP-Levar Andersen Work Phone: [facility] Main [facility] Work Phone: Start: 28-35-1235Cfznpnmhma RecurringNP-Levar Andersen Work Phone: [facility]-Physical Therapy [place] CreekStart: 10-20-2022 End: 06-66-8344klyibmeltmTG-Levar Andersen Work Phone: [facility] Work Phone: Start: 10-20-2022 End: 69-29-5058Lyavecn encounter procedureNP-Levar Andersen Work Phone: [facility] Main [facility] Work Phone: Start: 10-15-2022 End: 43-45-1264ogiwwkevfvQBZFFP CRAMERFacility:P8Koipa: 10-12-2022 End: 50-94-9659txjasxyfceRXQGQX CRAMERFacility:Z2Mobyn: 10-09-2022 End: 49-93-6334Crkmgfltw department patient visitNP-Levar Andersen Work Phone: [facility]-Emergency Room Work Phone: Start: 10-05-2022 End: 23-79-4871saztfxgcdoUT CHARLES G REINECKFacility:Z9Ptnqy: 10-04-2022 End: 05-15-9263bxvgrnsausBEGFRJ CRAMERFacility:N2Xytdd: 09-15-2022 End: 52-25-1961gghyiuiffgGXVEYM CRAMERFacility:H1Zgfjf: 09-10-2022 End: 96-75-5064biackqwonhERGGUB CRAMERFacility:S0Otycr: 29-74-7910Qcfiuyo encounter procedureSAtrium Health Huntersville AmbulatoryStart: 05-27-2017 End: 91-44-1862Mkzsnzber department patient visitBRIREDELL MEMORIAL HOSPITALANNIE [facility] MEDICAL CENTERFacility:[facility] Procedures DateProcedureProcedure DetailPerforming ClinicianStart: 44-58-8058Wjpcb of gammaglobulin iga igd igg igm Kraig Marcus COATER OPERATOR.CUTTER OPERATOR HELPER Work Phone: start: 53-04-9168Dpbrngzouj microscopic onlyMarcia Abdi Lebron COATER OPERATOR - CUTTER OPERATOR HELPER Work Phone: Start: 07-48-8021Ztyot dip stick/tablet rgnt auto w/o microscopyMarcia Abdi Lebron COATER OPERATOR - CUTTER OPERATOR HELPER Work Phone: Start: 59-22-8043Jsirgdikmm microscopic onlyAhmet Meneses MD Work Phone: Start: 71-44-3511Hnnvx dip stick/tablet rgnt auto w/o microscopyAhmet Meneses MD Work Phone: Start: 37-53-0425Ksi routine ecg w/least 12 lds w/i&r Ahmet Meneses MD Work Phone: Start: 69-79-1350URL CBC WITH AUTO DIFFCorey Yoshi DO Work Phone: Start: 08-45-3701DA CHEST 2VCorey Yoshi DO Work Phone: Start: 65-76-1130Rwmfq dip stick/tablet rgnt auto w/o microscopyBulk Order ProviderStart: 06-43-6062Nnwda of gammaglobulin iga igd igg igm Charly Vyas MD Work Phone: Start: 33-16-8991Dtr brain brain stem w/o w/contrast Kojo Purvis MD Work Phone: Start: 06-37-9349Ixkej metabolic panel calcium total Daniel Lee Stanley MD Work Phone: start: 32-88-8037Dezknkpn screenAngela GillmorComment on above:Result Comment: PERFORMED BY: [facility] [address] [place] [address] PATHOLOGIST HEAD FILTER PRESS TENDER ANU RICK M.D.Start: 59-21-3372Iuxxkbfdcnrfy of transfusion reactionNP-C Rosa M Andersen Work Phone: H/O: sectionStatus post primary low transverse sectionNP-C Julia Mcguire Work Phone: Plan of Treatment DateCare ActivityDetailAuthorStart: 45-90-3584Ifsnu microalbumin profile DTaP,Tdap,Td Vaccine (6 - Td or Tdap)[facility] Hospitaltart: 07-03-2025 End: 99-65-1826Vzfpbib encounter dbccogytw23/11/2026 2:45 PM EST Office Visit [facility] [address] [id number] Moriah Marcus, COATER OPERATOR.CUTTER OPERATOR HELPER [address] [place] [address] Follow upMaroa CenterComment on above:Follow upStart: 06-28-2025 End: 29-72-9869mdseuqhewm14/06/2026 8:00 AM EST Infusion Center Multiple Sclerosis [address] [address] Multiple Sclerosis Multiple SclerosisComment on above:Multiple SclerosisStart: 04-15-2025 End: 42-02-8437Jsfelty encounter /24/2025 2:30 PM EST Procedure Visit [facility] [address] [place] [address] [place] [address] Bennett Belle DO [facility] [place] [address] NOMDarling [place] OBGYNStart: 03-27-2025 End: 67-89-1401Kqpgpvanqnji / ancillary services /05/2025 8:30 AM EST Ancillary Procedure NOMDarling PANDAGYN [address] [place] [address] [facility] [place] OBGYNStart: 03-13-2025 End: 88-40-4612Jwmwokbcid A1c/Hemoglobin.total in BloodHemoglobin A1c Lab Routine Menorrhagia with irregular cycle Expected: 03/13/2025 (Approximate), Expires: 03/13/2026NOMS HealthcareComment on above:Expected: 03/13/2025 (Approximate), Expires: 03/13/2026Start: 03-13-2025 End: 15-34-2935OP PelvisUS Pelvis w/ TV Imaging Routine Menorrhagia with irregular cycle Expected: 03/13/2025, Expires: 09/11/2025NOGA HealthcareComment on above:Expected: 03/13/2025, Expires: 09/11/2025Start: 01-27-2025 End: 34-56-2839Cxrlywq encounter procedureMRI QComment on above:: MRI THORACIC SPINE WO/W IVCONStart: 76-49-2037YZTPU-19 Vaccine ( season)COVID-19 Vaccine ( season)[facility]OM[facility] HealthcareStart: 82-60-9488Txiciohud vaccinationCleveland Clinic Marymount Hospitaltart: 08-01-2025Medicare Annual Wellness Visit Medicare Annual Wellness VisitCleveland Clinic Marymount Hospitaltart: 12-19-2024 End: 11-46-8664tlaisrjpai20/30/2025 8:00 AM EDT Infusion Center Multiple Sclerosis [address] [place] [address] Multiple Sclerosis Multiple SclerosisComment on above:Multiple SclerosisStart: 09-04-2024 End: 96-30-0520Ihaannf encounter procedureHeart Center Of [facility] for MSComment on above: 7T Spine Study CRC7T Spine Study EDSSStart: 07-24-2024 End: 27-17-8470Gvyyhaj encounter bvdftowgn99/04/2025 10:40 AM EST Office Visit Dermatology [address] [phone] Jaan Gaviria MD [address] [place] [address] follow up for HSDermatologyComment on above:follow up for HS Start: 07-23-2024 End: 51-25-9924Husiemh encounter procedureMellen Center for MSComment on above: 7T Spine Study CRCT Spine Study EDSSStart: 07-11-2024 End: 84-35-7395Jcpdcat encounter procedureMellen Center for MSComment on above: 7T Spine Study CRCT Spine Study EDSSStart: 07-06-2024 End: 46-08-9788Tzrccgw encounter procedureMellen Center for MSComment on above: 7T Spine Study CRC7T Spine Study EDSSStart: 06-24-2024 End: 59-25-0647Fqmlwxc encounter procedureMRI QComment on above:Brain MRI w & w/o contrastthoracic spine MRI w/ & w/o contrastcervical spine MRI w & w/o contrastStart: 06-19-2024 End: 51-07-3121FF94 ABSOLUTE COUNTOhiohealth Marion General Hospital Work Phone: comment on above:Expected: 06/19/2024, Expires: 09/18/2024Start: 06-19-2024 End: 27-20-9188kyxpurrgty63/28/2025 8:00 AM EST Infusion Center Multiple Sclerosis [address] [place] [id number] Multiple Sclerosis Multiple SclerosisComment on above:Multiple SclerosisStart: 06-02-2024 End: 06-30-6555FT Brain WO and W contrast IVMRI BRAIN WO/W IVCON Radiology Routine Demyelinating disease of central nervous system (HCC) Expected: 06/02/2024 (Approximate), Expires: 12/30/2024leveland ClinicComment on above: Expected: 06/02/2024 (Approximate), Expires: 12/30/2024Start: 06-02-2024 End: 43-11-9538KP Cervical spine WO and W contrast IVMRI CERVICAL SPINE WO/W IVCON Radiology Routine Demyelinating disease of central nervous system (HCC) Expected: 06/02/2024 (Approximate), Expires: 12/30/2024[facility] Work Phone: Comment on above:Expected: 06/02/2024 (Approximate), Expires: 12/30/2024Start: 06-02-2024 End: 22-61-8883HV Thoracic spine WO and W contrast IVMRI THORACIC SPINE WO/W IVCON Radiology Routine Demyelinating disease of central nervous system (HCC) Expected: 06/02/2024 (Approximate), Expires: 12/30/2024[facility] CenterComment on above:Expected: 06/02/2024 (Approximate), Expires: 12/30/2024Start: 05-04-2024 End: 50-61-2402Seiszpcnxj A1c in BloodHEMOGLOBIN A1C Lab Routine Hidradenitis suppurativa Expected: 05/04/2024 (Approximate), Expires: 08/03/2024[facility] Work Phone: Comment on above:Expected: 05/04/2024 (Approximate), Expires: 08/03/2024Start: 03-14-2024 End: 51-47-8526vuhkuxyirf62/23/2024 12:00 PM EDT [facility] [address] [address] Sonya Holloway MD [address] [place] [address] [facility] HospitalComment on above:msStart: 02-29-2024 End: 79-93-7549Akgqqaq encounter uporrglnt31/09/2024 11:15 AM EDT Office Visit Urology [address] [address] Brianna Angel MD [address] [place] [address] Urinary hesitance per staff msgUrologyComment on above:Urinary hesitance per staff msgStart: 02-29-2024 End: 02-10-7660Kpdwinc evaluation of patient and foufde5502/29/2024 10:00 AM EDT Nurse Visit Urology [address] [address] Fluro urodynamics [facility] [place] [address] video urodynamicsUrologyComment on above:video urodynamicsStart: 02-06-2024 End: 54-74-3264Fshtbrn encounter slgiutkqn20/16/2024 2:10 PM EDT Consult [facility] OB [address] [place] [address] Bennett Belle, [address] [place] [address] [facility] BCP OBStart: 02-03-2024 End: 17-69-7267Oqttfij encounter qgoerlkvk18/13/2024 2:30 PM EDT Office Visit Urology [address] [address] Urol, Nurse [facility] [address] [place], [place] [id number] video urodynamicsUrologyComment on above:video urodynamicsStart: 01-25-2024 End: 71-83-6088Dxrxvqs encounter khvvjmuoe84/04/2024 1:00 PM EDT Office Visit Urology [address] [address] Neeru 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 [address] [place] [address] Urinary retentionUrologyComment on above:Urinary retentionStart: 75-71-9002Mewaw-19 Vaccine ()Covid-19 Vaccine ()[facility] Hospitaltart: 02-79-6549Yoqdg-19 Vaccine ( season) Covid-19 Vaccine ( season)[facility] Hospitaltart: 52-50-1509Lilxkzwnq vaccinationCleveland Clinic Marymount Hospitaltart: 01-04-2024 End: 88-42-7746Gepaur-up ecszdgrqk91/14/2024 11:00 AM EDT [address] [address] Sonya Holloway MD [address] [phone] Follow upMellen CenterComment on above:Follow upStart: 53-90-5165Tycxnatvj vaccinationRIVERSIDE SHORE MEMORIAL HOSPITALStart: 12-20-2023 End: 29-46-8870ifhchixbwg20/30/2024 10:30 AM EDT Infusion Center Multiple Sclerosis [address] [place] [address] ocrevusMultiple SclerosisComment on above:ocrevusStart: 12-06-2023 End: 39-92-3180hqtvtuelzu76/16/2024 10:30 AM EDT Infusion Center Multiple Sclerosis [address] [place] [address] ocrevusMultiple SclerosisComment on above:ocrevusStart: 11-30-2023 End: 77-33-7922Uzfzrm-up filxsmbgp47/10/2024 11:00 AM EDT [address] [address] Sonya Holloway MD [address] [phone] Follow upMellen CenterComment on above:Follow upStart: 11-16-2023 End: 61-48-6165Wgewhf-up evurknefb65/26/2024 7:25 AM EDT [address] [address] Sonya Holloway MD [address] [place] [place] [phone] Follow upMaroa CenterComment on above:Follow upStart: 10-28-2023 End: 97-93-5280SMZCR TB SCREENBLOOD TB SCREEN Lab Routine Other chronic pain Expected: 10/28/2023, Expires: 01/27/2024leveland ClinicComment on above: Expected: 10/28/2023, Expires: 01/27/2024Start: 10-28-2023 End: 16-57-1949FVU W Auto Differential panel - BloodCOMPLETE BLOOD COUNT AND DIFFERENTIAL Lab Routine Other chronic pain Expected: 10/28/2023, Expires: 01/27/2024leveland ClinicComment on above:Expected: 10/28/2023, Expires: 01/27/2024Start: 10-28-2023 End: 59-72-4592Tltozeh hepatitis differentiation between hepatitis B and C virus panel - Serum or PlasmaHEP REMOTE PANEL BL Lab Routine Other chronic pain Expected: 10/28/2023, Expires: 01/27/2024leveland ClinicComment on above: Expected: 10/28/2023, Expires: 01/27/2024Start: 10-28-2023 End: 93-61-3630Mevurzffsvvzn metabolic 2000 panel - Serum or PlasmaCOMPREHENSIVE METABOLIC PANEL Lab Routine Other chronic pain Expected: 10/28/2023, Expires: 01/27/2024leveland ClinicComment on above:Expected: 10/28/2023, Expires: 01/27/2024Start: 10-28-2023 End: 11-01-9036LQALEZFBOSNULDI,IGG,IGA,IGMIMMUNOGLOBULINS,IGG,IGA,IGM Lab Routine Other chronic pain Expected: 10/28/2023, Expires: 01/27/2024[facility] Work Phone: Comment on above:Expected: 10/28/2023, Expires: 01/27/2024Start: 10-28-2023 End: 19-44-4251IKE ANTIBODY & INDEX WITH REFLEXJCV ANTIBODY & INDEX WITH REFLEX Lab Routine Other chronic pain Expected: 10/28/2023, Expires: 01/27/2024 [facility] HospitalComment on above:Expected: 10/28/2023, Expires: 01/27/2024Start: 10-28-2023 End: 94-05-0757TFLDFCHMI ZOSTER IGGVARICELLA ZOSTER IGG Lab Routine Other chronic pain Expected: 10/28/2023, Expires: 01/27/2024[facility] ClinicComment on above:Expected: 10/28/2023, Expires: 01/27/2024Start: 10-28-2023 End: 57-77-1166Uotbis-up euxmqjsga83/07/2024 1:00 PM EDT [facility] [address] [address] Kayleigh Purvis MD [address] [place] [address] F ollow Up, MRI resultsHeart Center Of IndianaComment on above:Follow Up, MRI resultsStart: 10-25-2023 End: 73-96-7812Uytjgvk encounter fujvogcbd79/04/2024 2:40 PM EDT Appointment RADIO MRI [facility] [place] [address] MRI BRAIN WO/W IVCONRADIO MRI [facility] HOSPComment on above:MRI BRAIN WO/W IVCONStart: 10-25-2023 End: 48-28-6606Wijjzmd encounter procedureRADIO MRI [facility] HOSPComment on above:MRI THORACIC SPINE WO/W IVCONMRI CERVICAL SPINE WO/W IVCONStart: 10-24-2023 End: 88-47-7894Coorusq encounter wzpojveir67/03/2024 2:00 PM EDT Office Visit Spine [place] [address] [place] [address] Amauri Leblanc, COATER OPERATOR.CUTTER OPERATOR HELPER [address] [place] [address] Spinal LesionSringgold InstituteComment on above:Spinal LesionStart: 10-13-2023 End: 83-60-1359ntjoteeshk81/23/2024 2:40 PM EDT [facility] Internal Medicine [facility] [address] [place] [address] Julia Lombardo PA-C [address] [place], [place] [address] post-hospitalizationInterSpringhill Medical CenterComment on above:post-hospitalizationStart: 10-04-2023 End: 96-16-9947zqjrouqcfp94/14/2024 9:00 AM EDT [facility] [address] [address] Sonya Holloway MD [address] [place], [place] [id number] Myelopathy (HCC) [G95.9][facility] IndianaComment on above:Myelopathy (HCC) [G95.9] Start: 10-04-2023 End: 25-39-3587Emzxkei encounter nwhbnurvk89/14/2024 9:00 AM EDT Office Visit [address] [address] Sonya Holloway MD [address] [place], [place] [address] Myelopathy (HCC) [G95.9][facility] IndianaComment on above:Myelopathy (HCC) [G95.9]Start: 10-03-2023 End: 02-87-5402rezbqqixhh42/13/2024 1:40 PM EDT [facility] Internal [facility] [address] [place] [address] Julia Lombardo PA-C [address] [place], [place] [address] post-hospitalizationInterSpringhill Medical CenterComment on above:post-hospitalizationStart: 09-30-2023 End: 59-33-7422Jssrjpc encounter mxurpcvyb84/10/2024 2:30 PM EDT Office Visit Urology [address] [address] Les Benito PA [address] [address] Urinary hesitancyUrologyComment on above:Urinary hesitancy Start: 09-20-2023 End: 00-56-4732HZJQ NEUTRO CYTO ABANTI NEUTRO CYTO AB Lab Routine Myelopathy (HCC) Expected: 09/20/2023, Expires: 12/20/2023leveland ClinicComment on above: Expected: 09/20/2023, Expires: 12/20/2023Start: 09-20-2023 End: 73-83-4663Gfymnacj burgdorferi IgG and IgM panel - SerumLYME AB LATE >30 DAYS SYMPTOMS Lab Routine Myelopathy (HCC) Expected: 09/20/2023, Expires: leveland ClinicComment on above:Expected: 09/20/2023, Expires: 12/20/2023 Start: 09-20-2023 End: 12-20-2023 reactive protein [Mass/volume] in Serum or PlasmaC-REACTIVE PROTEIN Lab Routine Myelopathy ([facility]) Expected: 09/20/2023, Expires: 12/20/2023 [facility] HospitalComment on above:Expected: 09/20/2023, Expires: 12/20/2023Start: 09-20-2023 End: 50-50-0483YJQ DEMYELINATING DISEASE EVALUATION, SERUMCNS DEMYELINATING DISEASE EVALUATION, SERUM Lab Routine Myelopathy ([facility]) Expected: 09/20/2023, Expires: 12/20/2023[facility] Work Phone: comment on above:Expected: 09/20/2023, Expires: 12/20/2023Start: 09-20-2023 End: 74-15-6954Cmgymdqvp (Vitamin B12) [Mass/volume] in Serum or PlasmaVITAMIN B12 Lab Routine Myelopathy (HCC) Expected: 09/20/2023, Expires: 12/20/2023 [facility] HospitalComment on above:Expected: 09/20/2023, Expires: 12/20/2023Start: 09-20-2023 End: 94-16-7063Tkngrhqncpftq metabolic 2000 panel - Serum or PlasmaCOMPREHENSIVE METABOLIC PANEL Lab Routine Myelopathy ([facility]) Expected: 09/20/2023, Expires: 12/20/2023[facility] ClinicComment on above:Expected: 09/20/2023, Expires: 12/20/2023Start: 09-20-2023 End: 98-96-7791DSLRNJ BLOODCOPPER BLOOD Lab Routine Myelopathy ([facility]) Expected: 09/20/2023, Expires: 12/20/2023[facility] ClinicComment on above:Expected: 09/20/2023, Expires: 12/20/2023Start: 09-20-2023 End: 30-83-5539RIE double strand Ab [Units/volume] in Serum by ImmunoassayDNA AB DS + CONF BLD Lab Routine Myelopathy ([facility]) Expected: 09/20/2023, Expires: 12/20/2023[facility] ClinicComment on above:Expected: 09/20/2023, Expires: 12/20/2023Start: 09-20-2023 End: 08-15-4223Xkbmuzvbmjq sedimentation rateSEDIMENTATION RATE, WESTERGREN Lab Routine Myelopathy ([facility]) Expected: 09/20/2023, Expires: 12/20/2023[facility] ClinicComment on above:Expected: 09/20/2023, Expires: 12/20/2023Start: 09-20-2023 End: 34-47-5612Edxfkgwevcs nuclear Ab panel - SerumANTI KERRI ID Lab Routine Myelopathy ([facility]) Expected: 09/20/2023, Expires: 12/20/2023[facility] Comment on above:Expected: 09/20/2023, Expires: 12/20/2023Start: 09-20-2023 End: 89-48-9999UGU 1+2 Ab [Presence] in Serum or Plasma by ImmunoassayHIV 1/2 COMBO WITH REFLEX TO DIFFERENTIATION Lab Routine Myelopathy ([facility]) Expected: 09/20/2023, Expires: 12/20/2023[facility] ClinicComment on above:Expected: 09/20/2023, Expires: 12/20/2023Start: 09-20-2023 End: 39-29-7996Vnkdkmmbvuyc [Moles/volume] in Serum or PlasmaHOMOCYSTEINE Lab Routine Myelopathy ([facility]) Expected: 09/20/2023, Expires: 12/20/2023[facility] ClinicComment on above:Expected: 09/20/2023, Expires: 12/20/2023Start: 09-20-2023 End: 31-17-3248FDSN AB SCREENHTLV AB SCREEN Lab Routine Myelopathy ([facility]) Expected: 09/20/2023, Expires: 12/20/2023[facility] ClinicComment on above: Expected: 09/20/2023, Expires: 12/20/2023Start: 09-20-2023 End: 26-81-8518Mjjfjqocqfibog [Moles/volume] in Serum or PlasmaMETHYLMALONIC ACID Lab Routine Myelopathy ([facility]) Expected: 09/20/2023, Expires: 12/20/2023 [facility] HospitalComment on above:Expected: 09/20/2023, Expires: 12/20/2023Start: 09-20-2023 End: 34-68-8057Hqozkar Ab [Presence] in Serum by ImmunoassayANA PANEL BLOOD SCRN Lab Routine Myelopathy ([facility]) Expected: 09/20/2023, Expires: 12/20/2023[facility] ClinicComment on above:Expected: 09/20/2023, Expires: 12/20/2023Start: 09-20-2023 End: 71-55-3608QOAUNKXG TOTAL W/REFLEXSYPHILIS TOTAL W/REFLEX Lab Routine Myelopathy ([facility]) Expected: 09/20/2023, Expires: 12/20/2023[facility] Comment on above:Expected: 09/20/2023, Expires: 12/20/2023Start: 09-20-2023 End: 79-24-9323Ysnbikm encounter /30/2024 7:30 AM EDT Office Visit [address] [address] Sonya Holloway MD [address] [address] TM (Transverse Myelitis)[facility] Center [facility] IndianaComment on above:TM (Transverse Myelitis)Start: 96-46-0526GjlbhmxpuMemorial Hospitaltart: 06-29-2023 Hemoglobin A1c xrjnawpsyhbHuJ5QHgxggblyj ClinicStart: 06-12-1910Nyvfrrtfda Health ScreeningBehavioral Health ScreeningCleveland Clinic Marymount Hospitaltart: 01-21-2023 Covid-19 Vaccine ( season)Covid-19 Vaccine ( season) [facility]art: 35-64-2661Macyfmo CultureAerobic CultureMemorial Hospitaltart: 10-95-1316Tqvyixtuh CultureAnaerobic Culture [facility]: 91-02-2219Gugezhknijwvl fluid culture [facility]: 48-37-6009Jszaeghi burgdorferi DNA assay [facility]: 72-48-7891EquekxmyoMemorial Hospitaltart: 89-72-2484JugrxhzxwMemorial Hospitaltart: 2019 Screening for malignant neoplasm of cervixCleveland Clinic Marymount Hospitaltart: 2017 DTaP/Tdap/Td vaccine (1 - Tdap)DTaP/Tdap/Td vaccine (1 - Tdap)[facility]Start: 90-29-9819Kxjkdttyb B Vaccine (1 of 3 - 19+ 3-dose series)Hepatitis B Vaccine (1 of 3 - 19+ 3-dose series)[facility] Hospitaltart: 2017 Hepatitis B Vaccines (1 of 3 - 19+ 3-dose series)Hepatitis B Vaccines (1 of 3 - 19+ 3-dose series)[facility] CenterStart: 88-32-4551Azupjofzxask vaccination Pneumococcal Vaccine (1 of 2 - PCV)[facility]tart: 99-50-7822Cwyqw microalbumin profileDTaP,Tdap,Td Vaccine (1 - Tdap)[facility]tart: 69-60-3640Llyogvpb screeningDilated Retinal ExamCleveland Clinic Mary[facility] Hospitaltart: 50-82-2528Udvcyq PCP Team Chronic Disease VisitAnnual PCP Team Chronic Disease VisitCleveland Clinic Marymount Hospitaltart: 62-94-6915Fvgseao ScreeningAnxiety Screening [facility]tart: 67-15-3774Vukhhkfpky ScreeningDepression Screening [facility]tart: 03-89-8501Vkecpksgp B surface antibody levelLDL CholesterolCleveland Clinic Marymount Hospitaltart: 06-22-9583Cfvvsakfs C screeningHepatitis C ScreeningCleveland Clinic Mary[facility] Hospitaltart: 88-51-5751OJD screeningHIV ScreeningCleveland Clinic Marymount Hospitaltart: 81-85-8976MJJ Vaccine (1 - 3-dose series)HPV Vaccine (1 - 3-dose series)[facility]: 89-09-0689VCJ Vaccines (1 - 3-dose series)HPV Vaccines (1 - 3-dose series)[facility] HealthcareStart: 66-55-0892Riaf To Adult Transition Annual AssessmentPeds To Adult Transition Annual AssessmentCleveland Clinic Marymount Hospitaltart: 92-09-1767Eoolasz of varicella vaccinationVaricella Vaccines (1 of 2 - 13+ 2-dose series)[facility] HealthcareStart: 10-03-8564Sxen To Adult Transition Initial DiscussionPeds To Adult Transition Initial DiscussionPromedica Toledo Hospital Start: 45-30-0586Zxucmscz foot examinationDiabetic Foot ExamPromedica Toledo Hospital Start: 48-62-1210Uczgkzvir B screeningUrine Albumin:Creatinine RatioCleveland Clinic Marymount Hospitaltart: 27-61-2577VHnJ/Tdap/Td Vaccines (1 - Tdap)DTaP/Tdap/Td Vaccines (1 - Tdap)[facility] HealthcareStart: 83-34-0506Pujvzsnykmme vaccinationPneumococcal Vaccine (1 of 2 - PCV)[facility]art: 51-03-4206YQC Vaccines (1 of 1 - Standard series)MMR Vaccines (1 of 1 - Standard series)[facility] HealthcareStart: 94-17-8904OXKFD-19 Vaccine (#1)COVID-19 Vaccine (#1)[facility] Albumin [Mass/volume] in Cerebral spinal fluidKettering Health Main Campus Albumin [Mass/volume] in Serum or PlasmaK[facility] Albumin/Protein.total in Cerebral spinal fluid by ElectrophoresisKettering Health Main CampusAngiotensin converting enzyme [Enzymatic activity/volume] in Cerebral spinal fluidKettering Health Main CampusAquaporin 4 water channel IgG Ab [Units/volume] in Serum or Plasma by ImmunoassayKettering Health Main CampusArsenic measurementK[facility]tering Health Main CampusBeta globulin/Protein.total in Cerebral spinal fluid by ElectrophoresisKettering Health Main CampusBorrelia burgdorferi Ab [Interpretation] in Serum [facility] CampusBorrelia burgdorferi IgG Ab [Presence] in Serum or Plasma by ImmunoassayKettering Health Main CampusBorrelia burgdorferi IgG+IgM Ab [Presence] in Serum by ImmunoassayKet[facility] Health [facility] Campus Borrelia burgdorferi IgM Ab [Presence] in Serum or Plasma by Immunoassay [facility] CampusCerebrospinal fluid IgG ratio and IgG index [facility] End: 03-13-7779YO Abdomen and Pelvis W contrast IVCT ABD/PEL W IVCON Radiology Routine Myelopathy ([facility]) 1 Occurrences starting 09/20/2023 until 10/19/2024 [facility] HospitalComment on above:1 Occurrences starting 09/20/2023 until 10/19/2024 End: 46-05-2276US Chest W contrast IVCT CHEST W IVCON Radiology Routine Myelopathy (HCC) 1 Occurrences starting 09/20/2023 until 5COhioHealth Southeastern Medical CenterComment on above:1 Occurrences starting 09/20/2023 until 10/19/2024 End: 04-11-9243Wpginpx, UrineBon [facility] [email or web address] Work Phone: Comment on above:Once for 1 Occurrences starting 05/23/2024 until 05/23/2024EKG 12 LeadEKG 12 Lead ECG Routine 04/05/2024 9:53 AM [facility] CenterElectrophoresis: pqsoz-0-kibkecvoGnhedbiqcKettering Health Main CampusElectrophoresis: zwbqw-7-owoaqhmnLsyzvizecKettering Health [facility] Campus FLUROURODYNAMICS WITH EMGFLUROURODYNAMICS WITH EMG Procedures Routine Urinary hesitancy Ordered: 01/25/2024[facility] Work Phone: Comment on above:Ordered: 01/25/2024Gamma globulin/Protein.total in Cerebral spinal fluid by ElectrophoresisKettering Health Main CampusIgG [Mass/volume] in Cerebral spinal fluidKettering Health Main CampusIgG [Mass/volume] in Serum or PlasmaKettering Health Main CampusIgG clearance/Albumin clearance [Ratio] in Serum and CSFKettering Health Main CampusIg synthesis rate [Mass/time] in Serum and CSF by calculationKettering Health Main CampusLaboratory data interpretation [facility] CampusMercury [Mass/volume] in [facility] End: 19-25-7320UB Brain WO and W contrast IVMRI BRAIN WO/W IVCON Radiology Routine Demyelinating disease of central nervous system (HCC) 1 Occurrences starting 10/04/[address] [facility] Work Phone: comment on above:1 Occurrences starting 10/04/2023 until 11/02/2024 End: 78-35-3964TO Brain WO and W contrast IVMRI BRAIN WO/W IVCON Radiology Routine Multiple sclerosis (HCC) Encounter for long-term (current) use of medications 1 Occurrences starting 01/02/[address] [facility] Work Phone: comment on above:1 Occurrences starting 01/02/2025 until 02/01/2026 End: 20-59-1347AQ Cervical spine WO and W contrast IVMRI CERVICAL SPINE WO/W IVCON Radiology Routine Demyelinating disease of central nervous system (HCC) 1 Occurrences starting 10/04/2023 until 11/02/2024[facility] Medical CenterComment on above:1 Occurrences starting 10/04/2023 until 11/02/2024 End: 23-09-6337FS Cervical spine WO and W contrast IVMRI CERVICAL SPINE WO/W IVCON Radiology Routine Multiple sclerosis (HCC) Encounter for long-term (cu rrent) use of medications 1 Occurrences starting 01/02/2025 until 02/01/2026 [facility] HospitalComment on above:1 Occurrences starting 01/02/2025 until 02/01/2026 End: 69-96-1397TK Thoracic spine WO and W contrast IVMRI THORACIC SPINE WO/W IVCON Radiology Routine Demyelinating disease of central nervous system (HCC) 1 Occurrences starting 10/04/2023 until 11/02/2024[facility] Medical CenterComment on above:1 Occurrences starting 10/04/2023 until 11/02/2024 End: 46-42-9547OF Thoracic spine WO and W contrast IVMRI THORACIC SPINE WO/W IVCON Radiology Routine Multiple sclerosis (HCC) Encounter for long-term (cu rrent) use of medications 1 Occurrences starting 01/02/2025 until 02/01/2026 [facility] HospitalComment on above:1 Occurrences starting 01/02/2025 until 02/01/2026 End: 40-26-4640RSM NEURO INSTOCT NEURO INST OPHT Imaging Routine Myelopathy (HCC) 1 Occurrences starting 09/20/2023 until 5C[facility] ClinicComment on above:1 Occurrences starting 09/20/2023 until 03/13/2025Patient Education Paresthesia (DC)[facility] Work Phone: Patient referralWilson [facility] Work Phone: Protein [Mass/volume] in Cerebral spinal fluid [facility] CampusProtein fractions.oligoclonal bands.intrathecal [Presence] in Serum and CSFKettering Health Main CampusRF Guidance for injection of Lumbar spineIR LUMBAR PUNCTURE DIAGNOSTIC (MC) Radiology Routine Myelopathy (HCC) Ordered: 09/20/2023leveland ClinicComment on above:Ordered: 09/20/2023Thyrotropin [Units/volume] in Serum or PlasmaTSH Lab Routine Menorrhagia with irregular cycle Ordered: 03/13/2025[facility] Work Phone: comment on above:Ordered: 03/13/2025Transthyretin measurementKettering Health Main CampusURINALYSIS, REFLEX MICROSCOPIC URINALYSIS, REFLEX MICROSCOPIC Lab Routine Screening for genitourinary condition Ordered: 02/29/2024[facility] Work Phone: Comment on above:Ordered: 02/29/2024 End: 20-59-7110DF Thoracic spine AP and Lateral and SwimmersXR THORACIC GENERAL 3V AP/LAT/SWIMMERS Radiology Routine Mid back pain 1 Occurrences starting 2024 until 6C[facility] ClinicComment on above:1 Occurrences starting 01/02/2025 until 02/01/2026 Immunizations Immunization DateImmunizationNotesCare WaqsadndLukzugil42-45-9240ybfzirl toxoid, reduced diphtheria toxoid, and acellular pertussis vaccine, adsorbedNP-C Julia Mcguire Work Phone: [facility]10-21-2015influenza virus vaccine, unspecified formulationDaniel Ontaneda MD Work Phone: cOhioHealth [facility]heastern Medical Center Payers DatePayer CategoryPayerPolicy ID2025MedicareMEDICARE [id number] [id number] [id number] 2022Medicaid [id number] 2022Medicaid (Managed Care)[employer] Member Subscriber Plan / Payer (Effective 2021- Present) Name: Carrie Bernstein Relation to Subscriber: Self Name: Carrie Bernstein Payer ID: Not on file Group ID: Not on file Type: Not on file [facility] [place] [id number] [id number] 2.0.1.773720.3.57[id number] 2.0.1.108647.3.57[id number] 2.0.1.234154.3.57[id number] 2.16.840.1.381790.3.57[id number] 2.16.840.1.961620.3.57[id number] 2.16.840.1.125207.3.57[id number] 2.16.840.1.440575.3.57[id number] 2.16.840.1.447727.3.57[id number] 2.16.840.1.760598.3.57[id number] 2.840.1.418487.3.57[id number] 2.16.840.1.600133.3.57[id number] 2.16.840.1.697631.3.57[id number] 2.16840.1.207028.3.57[id number] 2.16.840.1.289380.3.57[id number] 2.16.840.1.334007.3.57[id number] 2.16.840.1.794777.3.57[id number] 2.16.840.1.486823.3.57[id number] 2.0.1.229747.3.57[id number] 2..840.1.661080.3.57[id number] 2..840.1.174264.3.57[id number] 2.0.1.473190.3.579.2.1259 [id number] 1960Self-[id number] [id number] 2.840.1.7[id number] 2.0.1.9[id number] 2.0.1.991824.3.579.2.531 [id number] 2.0.1.601849.3.579.2.531 Social History DateTypeDetailFacilityStart: 2016 End: 41-67-3172Qnmynmr smoking status NHISSmoker (finding)[facility]: 81-03-0273Yfc Assigned At BirthFeMetroHealth Parma Medical Centertart: 04-06-2023 End: 77-02-6950Wwpxape smoking status NHISEx-smoker (finding)[facility]: 11-19-2017 End: 09-31-2019Xfxaxml of tobacco useCleveland Clinic Marymount Hospitaltart: 50-92-1456Mvuoolw smoking status NHISSmokes tobacco dailyCleveland Clinic Marymount Hospitaltart: 2016 End: 54-84-3242Fskkjqf of tobacco useCigarette SmokerCleveland Clinic Marymount Hospitaltart: 09-11-2015 End: 73-41-3707Attvnnzufz smoked current (pack per day) - Reported0.5C[facility] ClinicStart: 09-11-2015 End: 80-78-7377Ibrblzw use and exposureSmokeless tobacco non-userCleveland Clinic Marymount Hospitaltart: 05-27-2017 End: 31-88-4998Dtihuoc intakeCurrent drinker of alcohol (finding)[facility]tart: 33-43-9227Sbrhhwz CommentoccassionallyCFirelands Regional Medical Centertart: 43-82-2528Jml Assigned At BirthNot on fileCleveland Clinic Marymount Hospitaltart: 08-07-2015 End: 92-85-6033Tqoil Depression Screening Kruxolopmf9Hbixiybxi ClinicHas the Emotient, gas, oil, or water company threatened to shut off services in your home in past 12MoNoClUniversity Hospitals [facility] Work Phone: (I/We) worried whether (my/our) food would run out before (I/we) got money to buy more.Never truePromedica Toledo HospitalAre you now , , , , never or living with a partner? Living with partnerPromedica Toledo HospitalHow often to you have a drink containing alcohol?Monthly or lessPromedica Toledo HospitalHow many standard drinks containing alcohol do you have on a typical day?1 or 2COhioHealth Southeastern Medical CenterHow often do you have 6 or more drinks on 1 occasion?NeverPromedica Toledo HospitalHow hard is it for you to pay for the very basics like food, housing, medical care, and heatingNot very hardPromedica Toledo HospitalDo you feel stress - tense, restless, nervous, or anxious, or unable to sleep at night because yourmind is troubled all the time - these days [OSQ]Only a littlePromedica Toledo HospitalTobabrookhaven hospital – [facility] smoking status NHISTobacco smoking consumption unknownBON SECOURS CHILLICOTHE VA MEDICAL CENTERStart: 02-06-2024 End: 27-42-5881Czbibeehj beverage intakeEx-drinker (finding)[facility] Healthcare Start: 58-95-8793Xaiebvn CommentWas a pack a day smoker quit October 2022[facility] HealthcareStart: 90-43-7337Arodhqg CommentMaybe once a monthNOGA Healthcare Goals DatePatient GoalDesired Activity/StatePersonal health goal Functional Status PcpbHafztkbdsrJujohgKshyjrqr04-03-6149Apl you deaf, or do you have serious difficulty hearingNo 09/27/2023 12:35 PM EDT Chavo Mayorga RN [facility] 14-71-8835Uvu you blind, or do you have serious difficulty seeing, even when wearing glassesNo 09/27/2023 12:35 PM EDT Chavo Mayorga RN [facility] 54-39-3964Yl you have serious difficulty walking or climbing stairsYes 09/27/2023 12:35 PM EDT Chavo Mayorga RN [facility]05-07-2024Do you have difficulty dressing or bathingYes 09/27/2023 12:35 PM EDT Chavo Mayorga RN [facility] Medical CenterMqnplq27-82-9002Hqtwkxz of a physical, mental, or emotional condition, do you have difficulty doing errands alone such as visiting a physician's office or shoppingYes 09/27/2023 12:35 PM EDT Chavo Mayorga RN Yes [facility] Mental Status AhedHzhieohbknKvxayxZowinaxw55-30-4746Bjgyljg of a physical, mental, or emotional condition, do you have serious difficulty concentrating, remembering, or making decisionsNo 09/27/2023 12:35 PM EDT Chavo Mayorga RN [facility] Clinical Notes 10-05-2022 to 03-23-2025 Note Date & UlfxYcqlBjhibajr29-41-9143 NoteHNO ID: [id number] Author: CHEYENNE VERONICA RN Service: Radiology Author Type: Registered Nurse Type: Progress Notes Filed: 03/23/2025 16:07 Note Text: Radiology Service Progress Note DATE OF SERVICE: March 23, 2025 TIME: 3:54 PM PATIENT WEIGHT: 208 LBS PATIENT IDENTITY VERIFICATION COMPLETED USING TWO (2) STANDARD IDENTIFIERS: Name and Date of confirmed by patient verbally and Name and Date of confirmed by identification band. FALL SCREENING: Has the patient had 2 falls in the last year or 1 fall with injury or currently using an Ambulatory Assistive Device (Walker, Cane, Wheelchair, Crutches, etc.)? Yes, Patient High Risk for Falls What interventions were put in place to prevent falls during this visit? Yellow Falls Risk Wristband Applied, Instructed Patient to Call for Help if Needed, Offered Assistance with Transfers/Clothing, Instructed Patient to Remain Seated (Not on Exam Table) Until Exam, Increased Observations by Caregivers, and Escorted to/from Restroom PATIENT GENDER DATA: Assigned female at . status: : No status: NO. ALLERGIES: Reviewed and unchanged CONTRAST ALLERGY: No EXAM: MRI - CONTRAST TYPE: GROUP II IV SITE: Ambulatory: A peripheral IV was started in the Left antecubital site with a Angio cath: 22 gauge. and A Saline lock was inserted per protocol IV SITE APPEARANCE: Clean,Dry and Intact SIGNATURE: Cheyenne Veronica RN PATIENT NAME: Carrie Bernstein DATE: March 23, 2025 TIME: 3:54 [facility]10-22-2025 History of Present illness Narrative* Alyssa Talavera, BALWINDER - 03/13/2025 1:50 PM EDT Reason for Appointment: Patient ID: Carrie Bernstein is a 24 y.o. female who presents for Discuss Ablation Patient presents today for Acute Visit. and Consult appointment. MEDICATIONS Current Outpatient Medications Medication Instructions hydrOXYzine HCl (Atarax) 50 MG tablet TAKE 1 TABLET BY MOUTH ONCE DAILY NEEDED FOR ANXIETY FOR UP TO 15 DAYS. LORazepam (Ativan) 0.5 MG tablet PLEASE SEE ATTACHED FOR DETAILED DIRECTIONS nortriptyline (PAMELOR) 20 mg, Oral, 2 times daily OCRELIZUMAB IV Intravenous pregabalin (Lyrica) 100 MG capsule valACYclovir (VALTREX) 1,000 mg, Oral, 2 times daily Vyvanse 30 MG capsule 1 capsule, Oral, [...] Dysmenorrhea Endometriosis H/O chlamydia infection Menorrhagia Miscarriage ([facility] 2019 Multiple sclerosis Numbness PTSD (post-traumatic stress disorder) HISTORY PAST MEDICAL HISTORY SOCIAL HISTORY Past Medical History: Diagnosis Date ADHD (attention deficit hyperactivity disorder) Anxiety Breast screening Received clinical breast exam but not referred for further evaluation based on their clinical breast exam. Depression Dysmenorrhea Endometriosis H/O chlamydia infection Menorrhagia Miscarriage ([facility] 2019 Multiple sclerosis Numbness PTSD (post-traumatic stress disorder) Vitamin D deficiency Social History Tobacco Use Smoking status: Former Current packs/day: 0.00 Types: Cigarettes Start date: 2016 Quit date: 01/01/2023 Years since quittin.1 Smokeless tobacco: Never Tobacco comments: Was a [...] Negative. Gastrointestinal: Negative. Genitourinary: Positive for menstrual problem. Musculoskeletal: Negative. Skin: Negative. Neurological: Negative. All other systems reviewed and are negative. Hematological: Negative. Endocrine: Negative. Allergic/Immunologic: Negative. OBJECTIVE Objective: Physical Exam Constitutional: Appearance: Normal appearance. She is well-developed. Cardiovascular: Rate and Rhythm: Normal rate and [...] nursing note reviewed. Exam conducted with a mat worker present. Vitals: Estimated body mass index is 37.42 kg/m as calculated from the following: Height as of 01/09/24: 5' 4 . Weight as of this encounter: 218 lb. BP: 120/70 No LMP recorded (within months). Assessment/Plan ICD-10-CM 1. Menorrhagia with irregular cycle N92.1 TSH Hemoglobin A1c US Pelvis w/ TV Hemoglobin A1c 2. Cold sore B00.1 valACYclovir (Valtrex) 1 g tablet Pt presents with complaints of menorrhagia. Pt desires surgical management, pt has tried and failedhormonal treatment. Pt given labs and ultrasound orders to have obtained. Pt to be scheduled for endometrial ablation. Pt to return for preop/embx. Documented by Alyssa Talavera LPN on behalf of: Bennett Belle DO documented in this encounterSaint Louis University Health Science [id number] Telephone encounter Note* Telephone Encounter - Moriah Marcus APRN.[facility] - 01/22/2025 11:45 AM EDT [facility] office visit: 01/02/2025 [facility] virtual visit: 03/14/2024 [facility] appt: 07/03/2025 Labs reviewed. ALT Date Value Ref Range Status 12/26/2024 14 7 - 38 U/L Final Comment: Results may be falsely increased due to interference from hemolysis. Suggest reorder as clinically indicated. AST Date Value Ref Range Status 12/26/2024 32 13 - 35 U/L Final Comment: Results may be falsely increased due to interference from hemolysis. Suggest reorder as clinically indicated. Creatinine Date Value Ref Range Status 12/26/2024 0.77 0.58 - 0.96 mg/dL Final 11/03/2023 0.87 0.58 - 0.96 mg/dL Final 09/26/2023 0.77 0.58 - 0.96 mg/dL Final 09/25/2023 0.80 0.58 - 0.96 mg/dL Final CrCl cannot be calculated (Unknown ideal weight.). [facility] website checked and validated. All prescriptions have been APPROPRIATELY filled. No suspiciousactivity was identified. 01/22/2025 by Moriah MARCUS APRN.CNP The following approved medication requests have been transmitted electronically. Requested Prescriptions Signed Prescriptions Disp Refills pregablin (LYRICA) 200 mg capsule 60 capsule 5 Sig: Take 1 capsule by mouth two times a day for 180 days. Authorizing Provider: MORIAH MARCUS nortriptyline (PAMELOR) 10 mg capsule 120 capsule 5 Sig: Take 2 capsules by mouth two times a day. Authorizing Provider: MORIAH MARCUS APRN.CNP [facility]09-02-2025 Miscellaneous Notes* Telephone Encounter - Moriah Marcus APRN.CNP - 01/22/2025 11:45 AM EDT [facility] office visit: 01/02/2025 [facility] virtual visit: 03/14/2024 [facility] appt: 07/03/2025 Labs reviewed. ALT Date Value Ref Range Status 12/26/2024 14 7 - 38 U/L Final Comment: Results may be falsely increased due to interference from hemolysis. Suggest reorder as clinically indicated. AST Date Value Ref Range Status 12/26/2024 32 13 - 35 U/L Final Comment: Results may be falsely increased due to interference from hemolysis. Suggest reorder as clinically indicated. Creatinine Date Value Ref Range Status 12/26/2024 0.77 0.58 - 0.96 mg/dL Final 11/03/2023 0.87 0.58 - 0.96 mg/dL Final 09/26/2023 0.77 0.58 - 0.96 mg/dL Final 09/25/2023 0.80 0.58 - 0.96 mg/dL Final CrCl cannot be calculated (Unknown ideal weight.). [facility] website checked and validated. All prescriptions have been APPROPRIATELY filled. No suspiciousactivity was identified. 01/22/2025 by Moriah MARCUS APRN.CNP The following approved medication requests have been transmitted electronically. Requested Prescriptions Signed Prescriptions Disp Refills pregablin (LYRICA) 200 mg capsule 60 capsule 5 Sig: Take 1 capsule by mouth two times a day for 180 days. Authorizing Provider: MORIAH MARCUS nortriptyline (PAMELOR) 10 mg capsule 120 capsule 5 Sig: Take 2 capsules by mouth two times a day. Authorizing Provider: MORIAH MARCUS APRN.CNP * Telephone Encounter - Leslee Sun - 01/22/2025 10:58 AM EDT Source : call from patient requesting refill. Delivery : e-script Requested Prescriptions Pending Prescriptions Disp Refills pregablin (LYRICA) 200 mg capsule 60 capsule 2 Sig: Take 1 capsule by mouth two times a day for 90 days. nortriptyline (PAMELOR) 10 mg capsule 120 capsule 2 Sig: Take 2 capsules by mouth two times a day. DX : Patient last seen 01/02/25 Next Appointment : I .... Previous request sent to incorrect pharmacy Leslee Brown documented in this encounterProm[facility] Telephone encounter Note * Telephone Encounter - Leslee Sun - 01/22/2025 10:58 AM EDT Source : call from patient requesting refill. Delivery : e-script Requested Prescriptions Pending Prescriptions Disp Refills pregablin (LYRICA) 200 mg capsule 60 capsule 2 Sig: Take 1 capsule by mouth two times a day for 90 days. nortriptyline (PAMELOR) 10 mg capsule 120 capsule 2 Sig: Take 2 capsules by mouth two times a day. DX : Patient last seen 01/02/25 Next Appointment : FYI .... Previous request sent to incorrect pharmacy Leslee Brown [facility]08-15-2025 Telephone encounter Note* Telephone Encounter - Imelda Miller - 01/04/2025 1:32 PM EDT Please contact patient to schedule a virtual visit with Rae Paezantwanquan in 1 month and to move her June infusion and appointment to the same day vm was left [facility]08-15-2025 Miscellaneous Notes* Telephone Encounter - Imelda Miller - 01/04/2025 1:32 PM EDT Please contact patient to schedule a virtual visit with Rae Paezantwanquan in 1 month and to move her June infusion and appointment to the same day vm was left * Telephone Encounter - Pepito Duarte RN - 12/31/2024 1:49 PM EDT I called patient. She has had Lhermitt[employer] sign since the beginning and this is not new, it is just much worse and not going away as fast . I offered her a next day appt and she wants to wait to see Moriah on 12/31, in-person at 1445. Provider aware of upcoming appt * Telephone Encounter - Becky Negron PCNA - 12/31/2024 11:34 AM EDT [place] Call Name of caller : Carrie Relationship to patient: Self Return call phone number : [phone] Reason for call : Symptoms : Brief description of symptoms : Severe back pain that spreads to left side of ribs, hurts to move left arm, severe pain when patient moves neck. When did symptoms start : 12/27 pt had infusion 12/26 documented in this encounterPromedica [facility]08-13-2025 Instructions* Patient Instructions* Moriah Marcus APRN.MEEK - 01/02/2025 3:29 PM EDT PLAN - Continue Ocrevus - Labwork to include: IgG, IgM with next infusion - MRI brain, cervical, and thoracic spine w/wo Gd - XR thoracic spine - Take baclofen 10mg three times daily - Try acetaminophen, ibuprofen, or naproxen for back pain x 2 weeks - Rollator Rx provided - Consider Aquatic PT once pain resolves documented in this encounterPromedica [facility]08-13-2025 History of Present illness Narrative* Moriah Marcus 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 - 01/02/2025 2:45 PM EDT Images from the original note were not included. [facility] MULTIPLE SCLEROSIS FOLLOWUP/ESTABLISHED PATIENT VISIT PRINCIPAL NEUROLOGIC DIAGNOSIS: Multiple Sclerosis DISEASE SUMMARY Date of onset: 08/2022 Date of diagnosis of MS: 10/2022 Disease course at onset: Progressive Current disease course: Progressive with relapses Previous disease therapies: - IVMP x3 days 08/2023 Current disease therapy: Ocrevus start 12/06/2023 & 12/20/2023. Last q6 month tx 12/26/2024 (cycle 3) Most recent MRI brain: 10/27/2023 (stable vs. 09/07/2023: 2 PV lesions) Most recent MRI cervical spine: - 10/25/2023 (non GdE C5/6 lesion, new vs. 08/22/2023) [...] serology result and date: None OCT: 09/20/2023 Serum: - 2023: AQP4 Ab negative, copper wnl, vitamin B6 wnl, vitamin E wnl, vitamin B12/MMA wnl, syphilis negaitve, HIV negative, Lyme negative, HTLV negative, CRP wnl, CDS1 negative Systemic imaging: - PET whole body 09/22/2023: few likely reactive hypermetabolic cervical LN but otherwise unremarkable CHIEF COMPLAINT: Follow-up on MS disease modifying therapy INTERVAL HISTORY Usual treating team: Amie/Tiago -> Amie/Angeline The patient is accompanied by spouse and toddler son. The patient was last seen 03/14/2024 by virtual visit, currently taking Ocrevus. Since the patient's last visit the patient reports overall feeling worse. Issues with current MS therapy: Tolerating medication without side effects. Since infusion 12/26/2024, developed acute pain left side of back. Return of squeezing hug feeling. Was previously entire chest, now mostly left side. Describes as muscle spasm, knot of tension that ispulling. Worse with reaching. Walking more difficult. She is very active, has a lot of pain at the end of the day. Feels like bottom of her spine is disconnecting from her tailbone. Relatively severe low back pain that is worse with weightbearing. Has been relying on her wheelchair less. Still needs this on longer days or after a lot of activity. Continued leg weakness and pain. If she is overheated, has more pain and fatigue. Relying on w/c less. Still needs this on longer days or after a lot of activity. Still has leg weakness and pain. Once she is overheated, has more pain and fatigue. Has episodes of severe cognitive fog when overheated. Occurs when bearing down, overheats at times with bearing down which triggers cognitive fog. Element of weakness with this, usually she cannot walk and needs her spouse to help her. Has fallen off the toilet when this happens. Occurs a few timesper month. 6 times per month total, spouse thinks more. Similar feeling of cognitive fog and weakness when overheated. . Episodes last until she cools down, 5-10 min. Continues nortriptyline. Has significant side effects if she misses a dose. Continues 20 mg twice daily. Frequent UTIs until 2-3 months ago. Started using different femimine wash. Feels better using feminine wash. Was on ABX for awhile. Her symptoms of UTI include burning, pressure, and urgency, contacts [employer] when this occurs. Sometimes urine is test at other times she is just given antibiotics. On medication dispensation review, received prescription for ciprofloxacin x 7 days August and September 2024, then 30-day prescription which she keeps on hand that was given 09/2024. Has seen urology in the past for recurrent UTIs but recently canceled her appointment due to improved UTI frequency since changingfeminine wash. Clindamycin for HS, no recent use. Uses hibicleanse. Intake room not completed as patient arrived late for appointment. SUBJECTIVE & REVIEW OF SYSTEMS REVIEW OF SYSTEMS Refer to patient-entered data. Mood: Follows local psychiatry. Takes lorazepam 0.5mg PRN. Takes about twice weekly. Spasticity: Baclofen 10mg TID prescribed. Takes 10mg BID and 10mg PRN. Bladder: See HPI Bowel: Constipation, no incontinence. Pain related to today's visit:reviewed on nursing intake documentation See HPI Fatigue: See HPI Memory/Concentration: See HPI Neuro-Qol Functions (higher = better functioning) 03/14/2024 01/04/2024 -- Upper Extremity Domain T Score 33 33 Patient-reported 03/14/2024 01/04/2024 -- Lower Extremity Domain T Score 34 33 Patient-reported 03/14/2024 01/04/2024 -- Cognitive Function Domain T Score 41 43 Patient-reported 03/14/2024 01/04/2024 -- Ability To Participate In Social Roles T Score 38 41 Patient-reported 03/14/2024 01/04/2024 -- Satisfaction With Social Roles T Score 42 43 Patient-reported Neuro-Qol Symptoms (higher = worse symptoms) 03/14/2024 01/04/2024 -- Sleep Domain T Score 62 62 Patient-reported 03/14/2024 01/04/2024 -- Fatigue Domain T Score 58 61 Patient-reported 03/14/2024 01/04/2024 -- Anxiety Domain T Score 58 56 Patient-reported 03/14/2024 01/04/2024 -- Depression Domain T Score 48 50 Patient-reported 03/14/2024 01/04/2024 -- Stigma Domain T Score 59 64 Patient-reported *NeuroQoL is a multi-domain patient-reported quality of life questionnaire PHQ-9 Flowsheet Row Distance Health from 01/04/2024 in [facility] Office Visit from 09/20/[address] [facility] PHQ-9 Score 7 5 *PHQ-9 is a questionnaire for depressive symptoms, with scores 0-4 indicating none, 5-9 mild, 10-14moderate, 15-19 moderately severe, and 20-27 severe symptoms. PROMIS-10 Flowsheet Row Distance Health from 01/04/2024 in [facility] Office Visit from 09/20/[address] [facility] Global Physical Health T Score 29.6 26.7 Global Mental Health T Score 41.1 38.8 0-10 Standard Pain Scale 2 2 *PROMIS-10 is a patient-reported quality of life measure, typically reported as physical and mentaldomains. Here scores are expressed as percentiles, where the lowest possible score is one, the highest possible score is 99, and 50 is average. PAST HISTORY was reviewed and updated PAST MEDICAL HISTORY Diagnosis Date ADHD (attention deficit hyperactivity disorder) Depression Endometriosis PAST SURGICAL HISTORY Procedure Laterality Date SECTION HX REMOVAL GALLBLADDER MEDICATIONS and ALLERGIES were reviewed and updated. SOCIAL HISTORY was reviewed and updated: Social History Tobacco Use Smoking status: Former Packs/day: 0.00 Years: 0.5 packs/day for 2.0 years (1.0 ttl pk-yrs) Types: Cigarettes Start date: 12/05/2019 Quit date: 12/04/2021 Years since quittin.0 Smokeless tobacco: Never No Data Recorded [facility] 10/23/2023 (Exact Date) EXAM General Appearance: well appearing, in no acute distress Mental status evaluation during the interview and examination showed normal level of consciousness,orientation, language, memory, praxis, and higher intellectual function Affect: Normal Visual acuity: OD 20/25 OS 20/20-1 Correction: With contacts Extraocular movements: full, without MONICA Facial movements: Intact bilaterally Speech: normal Shoulder shru/5 b/l Muscle tone: Right arm spasticity: None Right leg spasticity: Mild Left arm spasticity: None Left leg spasticity: Mild Muscle strength (#/5): Right Left Upper Extremity: Deltoids 5- 5- Biceps 4+ 4 Triceps 4+ 4 Electromedical Equipment Technician 3+ 3+ Dorsal interossei 4 4 Lower extremity: Iliopsoas 5- 5- Quadriceps 5- 5- Hamstrings 5 5 Tibialis anterior 5 5 Gastrocnemius 5 5 Coordination: Upper extremity dexterity and rapid movements: Normal bilaterally Finger-nose: mild dysmetria or incoordination are evident Standing balance: Impaired Standard gait: wide-based, ataxic, unsteady. Assistive device: independent BACK: Mid back exquisitely tender with palpation, L>R RESULTS Monitoring labs: CBC + Diff Component Value Date WBC 7.36 12/26/2024 HB 11.9 12/26/2024 HCT 37.1 12/26/2024 PLT 304 12/26/2024 ABSLYMPH 1.78 12/26/2024 CMP Component Value Date AST 32 12/26/2024 GLUC 121 (H) 12/26/2024 BUN 12 12/26/2024 CREAT 0.77 12/26/2024 NA 137 12/26/2024 K 5.0 12/26/2024 CHLOR 103 12/26/2024 ALT 14 12/26/2024 No results found for: VITD25 Vitamin B12 Date Value Ref Range Status 09/20/2023 495 232 - 1,245 pg/mL Final No results found for: TSH JCV Component Value Date JCV Index Value 0.34 (H) 11/03/2023 JCV Antibody INDETERMINATE (A) 11/03/2023 IgG Date Value Ref Range Status 12/26/2024 940 700 - 1,600 mg/dL Final IgM Date Value Ref Range Status 12/26/2024 205 40 - 230 mg/dL Final CD3-CD19+ B Cell # Date Value Ref Range Status 12/26/2024 13 (L) 75 - 660 cells/uL Final No results found for: [id number] , ENHANCINGLES , CERVICALNEW , SPINEENHACIN ASSESSMENT Carrie Bernstein is a 24 year old woman with Multiple Sclerosis. This is patient's first in person visit since initial consult 08/2023. Exam essentially stable with perhaps reduced hide tanner strength bilaterally. Subjectively patient worse with new onset of severe left sided, posterior pain that started just following her recent Ocrevus infusion 12/26/2024. She denies fall or injury but area of back where there is pain is exquisitely tender with even mild palpation. Patient was concerned this was MS hug but given reproducibility of the symptom, think MSK etiology more likely. Recommend x-ray thoracic spine but increase baclofen dose to 10 mg 3 times daily, this ishow it is prescribed but she often takes this less. Also advised trial of NSAID as needed for the next 2 weeks. Updated imaging warranted brain and spine, MRI of the brain and/or spinal cord is being ordered to evaluate for efficacy of multiple sclerosis (MS) disease modifying therapy. Disease activity in MS is often not immediately detectable on history or examination, but is sensitively identified on MRI. If identified, new or active MS lesions on MRI may represent suboptimal response to MS therapy, and would change medical management. Gait is unsteady, patient walking independently. Encouraged rollator use, prescription provided. Often has increased pain with activity. Recommend aquatic physical therapy once her current acute painresolves. Recommend continue Ocrevus. No hypogammaglobulinemia noted with most recent lab work, will continueto follow this with each infusion. Encourage patient to follow our offices at least every 6 months. We will ensure she is scheduled tosee us on the same day as her infusions so more frequent exams and follow-up can be done. PLAN - Continue Ocrevus - Labwork to include: IgG, IgM with next infusion - MRI brain, cervical, and thoracic spine w/wo Gd - XR thoracic spine - Take baclofen 10mg three times daily - Try acetaminophen, ibuprofen, or naproxen for back pain x 2 weeks - Rollator Rx provided - Consider Aquatic PT once pain resolves Patient Health Education Discussed at Visit: Risks and Common side effects of MS medications Follow-up: In 1 month at [place] with [facility] by virtual visit I spent a total of 50 minutes on the date of the service which included preparing to see the patient, [id number] patient care, completing clinical documentation, obtaining and/or reviewing separately obtained history, performing a medically appropriate examination, counseling and educating the pat ient/family/caregiver, ordering medications, tests, or procedures, and communicating results to thepatient/family/caregiver. Moriah Marcus APRN/MEEK [facility] for [facility] S[facility] documented in this encounterProm[facility]ica [facility]08-[facility]25 NoteHNO ID: [id number] Author: MORIAH MARCUS 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 Service: ? Author Type: Nurse Practitioner Type: Progress Notes Filed: 01/04/2025 13:16 Note Text: [facility] MULTIPLE SCLEROSIS FOLLOWUP/ESTABLISHED PATIENT VISIT PRINCIPAL NEUROLOGIC DIAGNOSIS: Multiple Sclerosis DISEASE SUMMARY Date of onset: 08/2022 Date of diagnosis of MS: 10/2022 Disease course at onset: Progressive Current disease course: Progressive with relapses Previous disease therapies: - IVMP x3 days 08/2023 Current disease therapy: Ocrevus start 12/06/2023 AND 12/20/2023. Last q6 month tx 12/26/2024 (cycle 3) Most recent MRI brain: 10/27/2023 (stable vs. 09/07/2023: 2 PV lesions) Most recent MRI cervical spine: - 10/25/2023 (non GdE C5/6 lesion, new vs. 08/22/2023) [...] serology result and date: None OCT: 09/20/2023 Serum: - 2023: AQP4 Ab negative, copper wnl, vitamin B6 wnl, vitamin E wnl, vitamin B12/MMA wnl, syphilis negaitve, HIV negative, Lyme negative, HTLV negative, CRP wnl, CDS1 negative Systemic imaging: - PET whole body 09/22/2023: few likely reactive hypermetabolic cervical LN but otherwise unremarkable CHIEF COMPLAINT: Follow-up on MS disease modifying therapy INTERVAL HISTORY Usual treating team: Amie/Tiago -> Amie/Angeline The patient is accompanied by spouse and toddler son. The patient was last seen 03/14/2024 by virtual visit, currently taking Ocrevus. Since the patient's last visit the patient reports overall feeling worse. Issues with current MS therapy: Tolerating medication without side effects. Since infusion 12/26/2024, developed acute pain left side of back. Return of squeezing hug feeling. Was previously entire chest, now mostly left side. Describes as muscle spasm, knot of tension that is pulling. Worse with reaching. Walking more difficult. She is very active, has a lot of pain at the end of the day. Feels like bottom of her spine is disconnecting from her tailbone. Relatively severe low back pain that is worse with weightbearing. Has been relying on her wheelchair less. Still needs this on longer days or after a lot of activity. Continued leg weakness and pain. If she is overheated, has more pain and fatigue. Relying on w/c less. Still needs this on longer days or after a lot of activity. Still has leg weakness and pain. Once she is overheated, has more pain and fatigue. Has episodes of severe cognitive fog when overheated. Occurs when bearing down, overheats at times with bearing down which triggers cognitive fog. Element of weakness with this, usually she cannot walk and needs her spouse to help her. Has fallen off the toilet when this happens. Occurs a few times per month. 6 times per month total, spouse thinks more. Similar feeling of cognitive fog and weakness when overheated. . Episodes last until she cools down, 5-10 min. Continues nortriptyline. Has significant side effects if she misses a dose. Continues 20 mg twice daily. Frequent UTIs until 2-3 months ago. Started using different femimine wash. Feels better using feminine wash. Was on ABX for awhile. Her symptoms of UTI include burning, pressure, and urgency, contacts [employer] when this occurs. Sometimes urine is test at other times she is just given antibiotics. On medication dispensation review, received prescription for ciprofloxacin x 7 days August and September 2024, then 30-day prescription which she keeps on hand that was given 09/2024. Has seen urology in the past for recurrent UTIs but recently canceled her appointment due to improved UTI frequency since changing feminine wash. Clindamycin for HS, no recent use. Uses hibicleanse. Intake room not completed as patient arrived late for appointment. SUBJECTIVE AND REVIEW OF SYSTEMS REVIEW OF SYSTEMS Refer to patient-entered data. Mood: Follows local psychiatry. Takes lorazepam 0.5mg PRN. Takes about twice weekly. Spasticity: Baclofen 10mg TID prescribed. Takes 10mg BID and 10mg PRN. Bladder: See HPI Bowel: Constipation, no incontinence. Pain related to today's visit:reviewed on nursing intake documentation See HPI Fatigue: See HPI Memory/Concentration: See HPI Neuro-Qol Functions (higher = better functioning) 03/14/2024 01/04/2024 -- Upper Extremity Domain T Score 33 33 Patient-reported 03/14/2024 01/04/2024 -- Lower Extremity Domain T Score 34 33 Patient-reported 03/14/2024 01/04/2024 -- Cognitive Function Domain T Score 41 43 Patient-reported 03/14/2024 01/04/2024 -- Ability To Participate In Soc (more content not included)...[facility]08-11-2025 Telephone encounter Note* Telephone Encounter - Pepito Duarte RN - 12/31/2024 1:49 PM EDT I called patient. She has had [employer] sign since the beginning and this is not new, it is just much worse and not going away as fast . I offered her a next day appt and she wants to wait to see Moriah on 12/31, in-person at 1445. Provider aware of upcoming appt [facility]08-11-2025 Telephone encounter Note* Telephone Encounter - Becky Negron PCNA - 12/31/2024 11:34 AM EDT [place] Call Name of caller : Carrie Relationship to patient: Self Return call phone number : [phone] Reason for call : Symptoms : Brief description of symptoms : Severe back pain that spreads to left side of ribs, hurts to move left arm, severe pain when patient moves neck. When did symptoms start : 12/27 pt had infusion 12/26 [facility]07-15-2025 NoteHNO ID: [id number] Author: MORIAH MARCUS APRN.CNP Service: ? Author Type: Nurse Practitioner Type: Progress Notes Filed: 12/04/2024 08:17 Note Text: Last [facility] office visit: 09/20/2023 [facility] virtual visit: 03/14/2024 [facility] appt: Visit date not found No results found for: [id number] , ENHANCINGLES , CERVICALNEW , SPINEENHACIN IgG Date Value Ref Range Status 06/19/2024 867 700 - 1,600 mg/dL Final IgM Date Value Ref Range Status 06/19/2024 210 40 - 230 mg/dL Final CD3-CD19+ B Cell # Date Value Ref Range Status 06/19/2024 21 (L) 75 - 660 cells/uL Final Creatinine Date Value Ref Range Status 11/03/2023 0.87 0.58 - 0.96 mg/dL Final 09/26/2023 0.77 0.58 - 0.96 mg/dL Final 09/25/2023 0.80 0.58 - 0.96 mg/dL Final 09/24/2023 0.87 0.58 - 0.96 mg/dL Final CrCl cannot be calculated (Patient's most recent lab result is older than the maximum 180 days allowed.). ALT Date Value Ref Range Status 11/03/2023 9 7 - 38 U/L Final AST Date Value Ref Range Status 11/03/2023 12 (L) 13 - 35 U/L Final WBC Date Value Ref Range Status 11/03/2023 6.46 3.70 - 11.00 k/uL Final Abs Lymph Date Value Ref Range Status 11/03/2023 2.27 1.00 - 4.00 k/uL Final [facility] History of Present illness Narrative* Moriah Marcus APRN.CNP - 12/04/2024 8:17 AM EDT Last [facility] office visit: 09/20/2023 [facility] virtual visit: 03/14/2024 [facility] appt: Visit date not found No results found for: [id number] , ENHANCINGLES , CERVICALNEW , SPINEENHACIN IgG Date Value Ref Range Status 06/19/2024 867 700 - 1,600 mg/dL Final IgM Date Value Ref Range Status 06/19/2024 210 40 - 230 mg/dL Final CD3-CD19+ B Cell # Date Value Ref Range Status 06/19/2024 21 (L) 75 - 660 cells/uL Final Creatinine Date Value Ref Range Status 11/03/2023 0.87 0.58 - 0.96 mg/dL Final 09/26/2023 0.77 0.58 - 0.96 mg/dL Final 09/25/2023 0.80 0.58 - 0.96 mg/dL Final 09/24/2023 0.87 0.58 - 0.96 mg/dL Final CrCl cannot be calculated (Patient's most recent lab result is older than the maximum 180 days allowed.). ALT Date Value Ref Range Status 11/03/2023 9 7 - 38 U/L Final AST Date Value Ref Range Status 11/03/2023 12 (L) 13 - 35 U/L Final WBC Date Value Ref Range Status 11/03/2023 6.46 3.70 - 11.00 k/uL Final Abs Lymph Date Value Ref Range Status 11/03/2023 2.27 1.00 - 4.00 k/uL Final Moriah MARCUS 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 documented in this encounterPromedica [facility]07-01-2025 Telephone encounter Note * Telephone Encounter - Dieter Joiner - 11/20/2024 10:28 AM EDT Left voicemail regarding scheduling follow up appointment with Oswaldoa fellow on 12/19 infusion date. Scheduling number included for call back. [facility]07-01-2025 Miscellaneous Notes* Telephone Encounter - Dieter Joiner - 11/20/2024 10:28 AM EDT Left voicemail regarding scheduling follow up appointment with Ontnyasiaa fellow on 12/19 infusion date. Scheduling number included for call back. documented in this encounterPromedica [facility]edo Hospital06-02-2025 Telephone encounter Note * Telephone Encounter - Leslee Sun - 10/22/2024 11:36 AM EDT Source : call from patient requesting refill. Delivery : e-script Requested Prescriptions Pending Prescriptions Disp Refills pregablin (LYRICA) 200 mg capsule 60 capsule 2 Sig: Take 1 capsule by mouth two times a day for 90 days. DX : Patient last seen 03/14/24 Next Appointment : Leslee Brown [facility]06-02-2025 Miscellaneous Notes* Telephone Encounter - Leslee Sun - 10/22/2024 11:36 AM EDT Source : call from patient requesting refill. Delivery : e-script Requested Prescriptions Pending Prescriptions Disp Refills pregablin (LYRICA) 200 mg capsule 60 capsule 2 Sig: Take 1 capsule by mouth two times a day for 90 days. DX : Patient last seen 03/14/24 Next Appointment : Leslee Brown documented in this encounterPromedica [facility]edo Hospital05-15-2025 Telephone encounter Note * Telephone Encounter - Liz Rashid MA - 10/04/2024 12:51 PM EDT Hi, my name is Carrie Xierell. I am a patient of Dr. Belle. I have recurring UTI's because of my MS and I have another 1 at the moment. So I was wondering if I could get treatment for that, but I was also wondering if it is possible to do something like prophylactic so that I can reduce the number that is happening. I have an appointment with our urologist soon, but I just want to keep it on the right track until then if you can call me back my numbers [phone]. Thank you. Rx sent to [facility] in [place]. Pt not yet schedule for Urology appt. Please advise regarding prophylactic treatment for UTI's due to MS [facility] [id number] Miscellaneous Notes* Telephone Encounter - Liz Rashid MA - 10/04/2024 12:51 PM EDT Hi, my name is Carrie Bernstein. I am a patient of Dr. Belle. I have recurring UTI's because of my MS and I have another 1 at the moment. So I was wondering if I could get treatment for that, but I was also wondering if it is possible to do something like prophylactic so that I can reduce the number that is happening. I have an appointment with our urologist soon, but I just want to keep it on the right track until then if you can call me back my numbers [phone]. Thank you. Rx sent to [facility] in [place]. Pt not yet schedule for Urology appt. Please advise regarding prophylactic treatment for UTI's due to MS documented in this encounterSaint Louis [facility] Health Science [id number] Telephone encounter Note* Telephone Encounter - Shanon Chiu HUC - 09/27/2024 12:01 PM EDT Source : call from patient requesting refill. Delivery : e-script Requested Prescriptions Pending Prescriptions Disp Refills baclofen 10 mg tablet 90 tablet 1 Sig: Take 1 tablet by mouth three times a day. DX : Patient last seen 03/14/2024 Next Appointment : INA Khalil [facility]05-08-2025 Miscellaneous Notes* Telephone Encounter - Shanon Chiu HUC - 09/27/2024 12:01 PM EDT Source : call from patient requesting refill. Delivery : e-script Requested Prescriptions Pending Prescriptions Disp Refills baclofen 10 mg tablet 90 tablet 1 Sig: Take 1 tablet by mouth three times a day. DX : Patient last seen 03/14/2024 Next Appointment : INA Khalil documented in this encounterPromedica [facility]edo Hospital04-30-2025 Telephone encounter Note * Telephone Encounter - Leslee Sun - 09/19/2024 10:26 AM EDT Source : fax from pharmacy requesting refill. Delivery : e-script Requested Prescriptions Pending Prescriptions Disp Refills nortriptyline (PAMELOR) 10 mg capsule 120 capsule 2 Sig: Take 2 capsules by mouth two times a day. DX : Patient last seen 03/14/24 Next Appointment : Leslee Brown [facility]04-30-2025 Miscellaneous Notes* Telephone Encounter - Leslee Sun - 09/19/2024 10:26 AM EDT Source : fax from pharmacy requesting refill. Delivery : e-script Requested Prescriptions Pending Prescriptions Disp Refills nortriptyline (PAMELOR) 10 mg capsule 120 capsule 2 Sig: Take 2 capsules by mouth two times a day. DX : Patient last seen 03/14/24 Next Appointment : Leslee Brown documented in this encounterPromedica [facility]edo Hospital04-15-2025 Telephone encounter Note * Telephone Encounter - Amauri Garcia, Research Coordinator - 09/04/2024 1:36 PM EDT IRB# [id number]: Ultra high-field (7 Autumn) MRI of the spinal cord in neurological diseases Sanitary Engineer: Jayjay Miramontes MD, PhD ( Pager: [phone]) Mountain Services Manager: Amauri Garcia ( Pager: [phone]) Left voicemail to see if patient was planning to attend today's apt or would like to cancel/reschedule. Amauri Garcia Research Coordinator [facility]04-15-2025 Miscellaneous Notes* Telephone Encounter - Amauri Garcia Research Coordinator - 09/04/2024 1:36 PM EDT IRB# [id number]: Ultra high-field (7 Autumn) MRI of the spinal cord in neurological diseases Sanitary Engineer: Jayjay Miramontes MD, PhD ( Pager: [phone]) Mountain Services Manager: Amauri Garcia ( Pager: [phone]) Left voicemail to see if patient was planning to attend today's apt or would like to cancel/reschedule. Amauri Garcia Research Coordinator documented in this encounterPromedica Toledo Hospital04-14-2025 Telephone encounter Note * Telephone Encounter - Amauri Garcia Research Coordinator - 09/03/2024 3:52 PM EDT IRB# [id number]: Ultra high-field (7 Autumn) MRI of the spinal cord in neurological diseases Sanitary Engineer: Jayjay Miramontes MD, PhD ( Pager: [phone]) Mountain Services Manager: Amauri Garcia ( Pager: [phone]) Left voicemail with 7T Spine study apt reminder (tomorrow, 09/04/2024 at 1:30p). Amauri Garcia Research Coordinator [facility]04-14-2025 Miscellaneous Notes* Telephone Encounter - Amauri Garcia Research Coordinator - 09/03/2024 3:52 PM EDT IRB# [id number]: Ultra high-field (7 Autumn) MRI of the spinal cord in neurological diseases Sanitary Engineer: Jayjay Miramontes MD, PhD ( Pager: [phone]) Mountain Services Manager: Amauri aGrcia ( Pager: [phone]) Left voicemail with 7T Spine study apt reminder (tomorrow, 09/04/2024 at 1:30p). Amauri Garcia Research Coordinator documented in this encounterPromedica Toledo Hospital03-07-2025 Telephone encounter Note * Telephone Encounter - Amauri Garcia Research Coordinator - 07/27/2024 2:41 PM EST IRB# [id number]: Ultra high-field (7 Autumn) MRI of the spinal cord in neurological diseases Sanitary Engineer: Jayjay Miramontes MD, PhD ( Pager: [phone]) Mountain Services Manager: Amauri Garcia ( Pager: [phone]) Called patient to see if they would like to reschedule research apt. Patient agreeable to September 04 at 1:30pm. Amauri Garcia Research Coordinator [facility]03-07-2025 Miscellaneous Notes* Telephone Encounter - Amauri Garcia Research Coordinator - 07/27/2024 2:41 PM EST IRB# [id number]: Ultra high-field (7 Autumn) MRI of the spinal cord in neurological diseases Sanitary Engineer: Jayjay Miramontes MD, PhD ( Pager: [phone]) Mountain Services Manager: Amauri Garcia ( Pager: [phone]) Called patient to see if they would like to reschedule research apt. Patient agreeable to September 04 at 1:30pm. Amauri Garcia Research Coordinator documented in this encounterPromedica Toledo Hospital03-04-2025 Telephone encounter Note * Telephone Encounter - Shanon Chiu HUC - 07/24/2024 11:33 AM EST Source : call from patient requesting refill. Delivery : e-script Requested Prescriptions Pending Prescriptions Disp Refills Pregabalin (LYRICA) 200 mg capsule 60 capsule 2 Sig: Take 1 capsule by mouth two times a day for 90 days. DX : Patient last seen 03/14/2024 Next Appointment : INA Khalil [facility]03-04-2025 Miscellaneous Notes* Telephone Encounter - Shanon Chiu HUC - 07/24/2024 11:33 AM EST Source : call from patient requesting refill. Delivery : e-script Requested Prescriptions Pending Prescriptions Disp Refills Pregabalin (LYRICA) 200 mg capsule 60 capsule 2 Sig: Take 1 capsule by mouth two times a day for 90 days. DX : Patient last seen 03/14/2024 Next Appointment : INA Khalil documented in this encounterPromedica Toledo Hospital03-04-2025 Telephone encounter Note * Telephone Encounter - Amauri Garcia Research Coordinator - 07/24/2024 10:01 AM EST IRB# [id number]: Ultra high-field (7 Autumn) MRI of the spinal cord in neurological diseases Sanitary Engineer: Jayjay Miramontes MD, PhD ( Pager: [phone]) Mountain Services Manager: Amauri Garcia ( Pager: [phone]) Left voicemail for patient to call back if they'd like to reschedule 7T Spine Study apt. Amauri Garcia Research Coordinator [facility]03-04-2025 Miscellaneous Notes* Telephone Encounter - Amauri Garcia Research Coordinator - 07/24/2024 10:01 AM EST IRB# [id number]: Ultra high-field (7 Autumn) MRI of the spinal cord in neurological diseases Sanitary Engineer: Jayjay Miramontes MD, PhD ( Pager: [phone]) Mountain Services Manager: Amauri Garcia ( Pager: [phone]) Left voicemail for patient to call back if they'd like to reschedule 7T Spine Study apt. Amauri Garcia Research Coordinator documented in this encounterPromedica Toledo Hospital03-03-2025 Telephone encounter Note * Telephone Encounter - Amauri Garcia Research Coordinator - 07/23/2024 8:59 AM EST IRB# [id number]: Ultra high-field (7 Autumn) MRI of the spinal cord in neurological diseases Sanitary Engineer: Jayjay Miramontes MD, PhD ( Pager: [phone]) Mountain Services Manager: Amauri Garcia ( Pager: [phone]) Patient called research line requesting to cancel today's appointment due to illness. Called patient back to see if they would like to reschedule. Patient requested call back tomorrow, 07/24/2024. CRC will call around 10:00am. Amauri Garcia Research Coordinator [facility]03-03-2025 Miscellaneous Notes* Telephone Encounter - Amauri Garcia Research Coordinator - 07/23/2024 8:59 AM EST IRB# [id number]: Ultra high-field (7 Autumn) MRI of the spinal cord in neurological diseases Sanitary Engineer: Jayjay Miramontes MD, PhD ( Pager: [phone]) Mountain Services Manager: Amauri Garcia ( Pager: [phone]) Patient called research line requesting to cancel today's appointment due to illness. Called patient back to see if they would like to reschedule. Patient requested call back tomorrow, 07/24/2024. CRC will call around 10:00am. Amauri Garcia Research Coordinator documented in this encounterPromedica Toledo Hospital02-24-2025 Telephone encounter Note * Telephone Encounter - Amauri Garcia Research Coordinator - 07/16/2024 2:56 PM EST IRB# [id number]: Ultra high-field (7 Autumn) MRI of the spinal cord in neurological diseases Sanitary Engineer: Jayjay Miramontes MD, PhD ( Pager: [phone]) Mountain Services Manager: Amauri Garcia ( Pager: [phone]) Called patient to see if they would like to reschedule their 7T Spine study apt. Patient agreeable to reschedule for 07/23/2024 at 1:30pm. Amauri Garcia Research Coordinator [facility]02-24-[facility]25 Miscellaneous Notes* Telephone Encounter - Amauri Garcia Research Coordinator - 07/16/2024 2:56 PM EST IRB# [id number]: Ultra high-field (7 Autumn) MRI of the spinal cord in neurological diseases Sanitary Engineer: Jayjay Miramontes MD, PhD ( Pager: [phone]) Mountain Services Manager: Amauri Garcia ( Pager: [phone]) Called patient to see if they would like to reschedule their 7T Spine study apt. Patient agreeable to reschedule for 07/23/2024 at 1:30pm. Amauri Garcia Research Coordinator documented in this encounterPromedica Toledo Hospital02-19-2025 Telephone encounter Note * Telephone Encounter - Amauri Garcia Research Coordinator - 07/11/2024 1:42 PM EST IRB# [id number]: Ultra high-field (7 Autumn) MRI of the spinal cord in neurological diseases Sanitary Engineer: Jayjay Miramontes MD, PhD ( Pager: [phone]) Mountain Services Manager: Amauri Garcia ( Pager: [phone]) Left voicemail for patient to return call and let research team know if she was on her way to research apt or needed to cancel/reschedule. Amauri Garcia Research Coordinator [facility]02-19-2025 Miscellaneous Notes* Telephone Encounter - Amauri Garcia Research Coordinator - 07/11/2024 1:42 PM EST IRB# [id number]: Ultra high-field (7 Autumn) MRI of the spinal cord in neurological diseases Sanitary Engineer: Jayjay Miramontes MD, PhD ( Pager: [phone]) Mountain Services Manager: Amauri Garcia ( Pager: [phone]) Left voicemail for patient to return call and let research team know if she was on her way to research apt or needed to cancel/reschedule. Amauri Garcia Research Coordinator documented in this encounterPromedica Toledo Hospital02-13-2025 Telephone encounter Note * Telephone Encounter - Amauri Garcia Research Coordinator - 07/05/2024 10:29 AM EST IRB# [id number]: Ultra high-field (7 Autumn) MRI of the spinal cord in neurological diseases Sanitary Engineer: Jayjay Miramontes MD, PhD ( Pager: [phone]) Mountain Services Manager: Amauri Garcia ( Pager: [phone]) Called patient for apt reminder for 7T Spine study (tomorrow, 07/06/2024 at 12:30p). Patient requested to reschedule apt. Rescheduled for 07/11/2024 at 1:30pm. Amauri Garcia Research Coordinator [facility]02-13-2025 Miscellaneous Notes* Telephone Encounter - Amauri Garcia Research Coordinator - 07/05/2024 10:29 AM EST IRB# [id number]: Ultra high-field (7 Autumn) MRI of the spinal cord in neurological diseases Sanitary Engineer: Jayjay Miramontes MD, PhD ( Pager: [phone]) Mountain Services Manager: Amauri Garcia ( Pager: [phone]) Called patient for apt reminder for 7T Spine study (tomorrow, 07/06/2024 at 12:30p). Patient requested to reschedule apt. Rescheduled for 07/11/2024 at 1:30pm. Amauri Garcia Research Coordinator documented in this encounterPromedica Toledo Hospital02-11-2025 Telephone encounter Note * Telephone Encounter - Leslee Sun - 07/03/2024 10:14 AM EST Source : call from patient requesting refill. Delivery : e-script Requested Prescriptions Pending Prescriptions Disp Refills baclofen 10 mg tablet 90 tablet 1 Sig: Take 1 tablet by mouth three times a day. DX : Patient last seen 03/14/24 Next Appointment : Lselee Brown [facility]02-11-2025 Miscellaneous Notes* Telephone Encounter - Leslee Sun - 07/03/2024 10:14 AM EST Source : call from patient requesting refill. Delivery : e-script Requested Prescriptions Pending Prescriptions Disp Refills baclofen 10 mg tablet 90 tablet 1 Sig: Take 1 tablet by mouth three times a day. DX : Patient last seen 03/14/24 Next Appointment : Leslee Brown documented in this encounterPromedica Toledo Hospital01-28-2025 NoteHNO ID: [id number] Author: ALMA ROSA REYES RN Service: ? Author Type: Registered Nurse Type: Progress Notes Filed: 06/19/2024 14:32 Note Text: 0915 - patient reports severe throat and neck itching and throat irritation. She states that she has had this happen during her infusion before and they had to stop her infusion. Infusion stopped and hypersensitivity medications administered. After a 30 minute observation, patient reports that the itching had subsided. Ocrevus infusion restated, will continue to monitor. Alma Rosa Reyes RN June 19, 2024 9:50 [facility]01-28-2025 History of Present illness Narrative* Alma Rosa Reyes RN - 06/19/2024 9:25 AM EST 0915 - patient reports severe throat and neck itching and throat irritation. She states that she has had this happen during her infusion before and they had to stop her infusion. Infusion stopped andhypersensitivity medications administered. After a 30 minute observation, patient reports that the itching had subsided. Ocrevus infusion restated, will continue to monitor. Alma Rosa Reyes RN June 19, 2024 9:50 AM documented in this encounterPromedica Toledo Hospital01-15-2025 NoteHNO ID: [id number] Author: MORIAH MARCUS APRN.CNP Service: ? Author Type: Nurse Practitioner Type: Progress Notes Filed: 06/06/2024 09:48 Note Text: [facility] office visit: 09/20/2023 [facility] virtual visit: 03/14/2024 [facility] appt: Visit date not found No results found for: [id number] , ENHANCINGLES , CERVICALNEW , SPINEENHACIN IgG Date Value Ref Range Status 12/06/2023 881 700 - 1,600 mg/dL Final IgM Date Value Ref Range Status 12/06/2023 239 (H) 40 - 230 mg/dL Final No results found for: [id number] Creatinine Date Value Ref Range Status 11/03/2023 0.87 0.58 - 0.96 mg/dL Final 09/26/2023 0.77 0.58 - 0.96 mg/dL Final 09/25/2023 0.80 0.58 - 0.96 mg/dL Final 09/24/2023 0.87 0.58 - 0.96 mg/dL Final CrCl cannot be calculated (Patient's most recent lab result is older than the maximum 180 days allowed.). ALT Date Value Ref Range Status 11/03/2023 9 7 - 38 U/L Final AST Date Value Ref Range Status 11/03/2023 12 (L) 13 - 35 U/L Final WBC Date Value Ref Range Status 11/03/2023 6.46 3.70 - 11.00 k/uL Final Abs Lymph Date Value Ref Range Status 11/03/2023 2.27 1.00 - 4.00 k/uL Final Moriah MARCUS APRN.MEEKSt. [facility] Hospital01-15-2025 History of Present illness Narrative* Moriah Marcus 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 - 06/06/2024 9:47 AM EST [facility] office visit: 09/20/2023 [facility] virtual visit: 03/14/2024 [facility] appt: Visit date not found No results found for: [id number] , ENHANCINGLES , CERVICALNEW , SPINEENHACIN IgG Date Value Ref Range Status 12/06/2023 881 700 - 1,600 mg/dL Final IgM Date Value Ref Range Status 12/06/2023 239 (H) 40 - 230 mg/dL Final No results found for: [id number] Creatinine Date Value Ref Range Status 11/03/2023 0.87 0.58 - 0.96 mg/dL Final 09/26/2023 0.77 0.58 - 0.96 mg/dL Final 09/25/2023 0.80 0.58 - 0.96 mg/dL Final 09/24/2023 0.87 0.58 - 0.96 mg/dL Final CrCl cannot be calculated (Patient's most recent lab result is older than the maximum 180 days allowed.). ALT Date Value Ref Range Status 11/03/2023 9 7 - 38 U/L Final AST Date Value Ref Range Status 11/03/2023 12 (L) 13 - 35 U/L Final WBC Date Value Ref Range Status 11/03/2023 6.46 3.70 - 11.00 k/uL Final Abs Lymph Date Value Ref Range Status 11/03/2023 2.27 1.00 - 4.00 k/uL Final Moriah MARCUS 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 documented in this encounterPromedica Toledo Hospital01-13-2025 Telephone encounter Note * Telephone Encounter - Amauri Garcia, Research Coordinator - 06/04/2024 1:26 PM EST IRB# [id number]: Ultra high-field (7 Autumn) MRI of the spinal cord in neurological diseases Sanitary Engineer: Jayjay Miramontes MD, PhD ( Pager: [phone]) Mountain Services Manager: Amauri Garcia ( Pager: [phone]) Called patient to reschedule research apt. Rescheduled for 07/06/2024 at 12:30pm. Amauri Garcia Research Coordinator [facility]01-13-2025 Miscellaneous Notes* Telephone Encounter - Amauri Garcia Research Coordinator - 06/04/2024 1:26 PM EST IRB# [id number]: Ultra high-field (7 Autumn) MRI of the spinal cord in neurological diseases Sanitary Engineer: Jayjay Miramontes MD, PhD ( Pager: [phone]) Mountain Services Manager: Amauri Garcia ( Pager: [phone]) Called patient to reschedule research apt. Rescheduled for 07/06/2024 at 12:30pm. Amauri Garcia Research Coordinator documented in this encounterPromedica Toledo Hospital01-09-2025 Telephone encounter Note * Telephone Encounter - Amauri Garcia Research Coordinator - 05/31/2024 2:35 PM EST IRB# [id number]: Ultra high-field (7 Autumn) MRI of the spinal cord in neurological diseases Sanitary Engineer: Jayjay Miramontes MD, PhD ( Pager: [phone]) Mountain Services Manager: Amauri Garcia ( Pager: [phone]) Called patient back to reschedule visit, as EDSS rater is going to be on hospital service this day.Left voicemail requesting call back as soon as possible. Amauri Garcia Research Coordinator [facility]01-09-2025 Miscellaneous Notes* Telephone Encounter - Amauri Garcia Research Coordinator - 05/31/2024 2:35 PM EST IRB# [id number]: Ultra high-field (7 Autumn) MRI of the spinal cord in neurological diseases Sanitary Engineer: Jayjay Miramontes MD, PhD ( Pager: [phone]) Mountain Services Manager: Amauri Garcia ( Pager: [phone]) Called patient back to reschedule visit, as EDSS rater is going to be on hospital service this day.Left voicemail requesting call back as soon as possible. Mauriiso Summers Coordinator documented in this encounterPromedica Toledo Hospital01-09-2025 Telephone encounter Note * Telephone Encounter - Amauri Garcia Research Coordinator - 05/31/2024 2:29 PM EST IRB# [id number]: Ultra high-field (7 Autumn) MRI of the spinal cord in neurological diseases Sanitary Engineer: Jayjay Miramontes MD, PhD ( Pager: [phone]) Mountain Services Manager: Amauri Garcia ( Pager: [phone]) Called patient regarding eligibility for 7T Spinal Cord study. Provided study information and answered study-related questions - MRI's will not be viewable to pt or their clinical team, a review of the images will be conducted and pt will be notified if there is a clinically significant finding, ifno findings the pt will not hear from anyone post research scan, there will be about 50 patients with MS that participate. Patient interested in participating and scheduled visit for 06/13/2024 at 12:30pm. Amauri Garcia Research Sabiha [facility]01-09-2025 Miscellaneous Notes* Telephone Encounter - Amauri Garcia Research Coordinator - 05/31/2024 2:29 PM EST IRB# [id number]: Ultra high-field (7 Autumn) MRI of the spinal cord in neurological diseases Sanitary Engineer: Jayjay Miramontes MD, PhD ( Pager: [phone]) Mountain Services Manager: Amauri Garcia ( Pager: [phone]) Called patient regarding eligibility for 7T Spinal Cord study. Provided study information and answered study-related questions - MRI's will not be viewable to pt or their clinical team, a review of the images will be conducted and pt will be notified if there is a clinically significant finding, ifno findings the pt will not hear from anyone post research scan, there will be about 50 patients with MS that participate. Patient interested in participating and scheduled visit for 06/13/2024 at 12:30pm. Amauri Garcia Research Coordinator documented in this encounterPromedica [facility]25 Hospital Discharge instructions* Discharge Instructions* Leta Lebron APRN - CUTTER OPERATOR HELPER - 05/23/2024 1:58 PM EST Take antibiotics as directed until complete. Resume your home medications as discussed. Please follow-up with family doctor and neurology as needed. * Attachments The following attachments cannot be sent through Care Everywhere. * Medication Refill (Jordanian) * UTI (Urinary Tract Infection): Female (Jordanian) documented in this encounterBon [facility] Tele[facility] encounter Note* Telephone Encounter - Karmen Jon - 05/22/2024 4:45 PM EST Ge Escudero! The patient is requesting that this medication be sent to [facility] Maria Luisa. Per the patient, she is completely out, and the last time she was out, she was hospitalized. Her contact number: [phone] [facility] Work Phone: [phone] Miscellaneous Notes* Telephone Encounter - Karmen Jon - 05/22/2024 4:[address] Escudero! The patient is requesting that this medication be sent to [facility]. Per the patient, she is completely out, and the last time she was out, she was hospitalized. Her contact number: [phone] * Telephone Encounter - Karmen Jon - 05/22/2024 9:18 AM EST Source : call from patient requesting refill. Delivery : e-script Requested Prescriptions Pending Prescriptions Disp Refills nortriptyline (PAMELOR) 10 mg capsule 120 capsule 2 Sig: Take 2 capsules by mouth two times a day. DX : Patient last seen 03-14-24 Next Appointment : Karmen Jon documented in this encounterPromedica Toledo Hospital12-31-2024 Telephone encounter Note * Telephone Encounter - Karmen Jon - 05/22/2024 9:18 AM EST Source : call from patient requesting refill. Delivery : e-script Requested Prescriptions Pending Prescriptions Disp Refills nortriptyline (PAMELOR) 10 mg capsule 120 capsule 2 Sig: Take 2 capsules by mouth two times a day. DX : Patient last seen 03-14-24 Next Appointment : Karmen Jon [facility]12-30-2024 Telephone encounter Note* Telephone Encounter - Amauri Garcia Research Coordinator - 05/21/2024 11:30 AM EST IRB# [id number]: Ultra high-field (7 Autumn) MRI of the spinal cord in neurological diseases Sanitary Engineer: Jayjay Miramontes MD, PhD ( Pager: [phone]) Mountain Services Manager: Amauri Garcia ( Pager: [phone]) Called patient regarding eligibility for 7T Spinal Cord study. Left voicemail with coordinator contact information for patient to call back if interested in learning about the study. Amauri Garcia Research Coordinator [facility]12-30-2024 Miscellaneous Notes* Telephone Encounter - Amauri Garcia Research Coordinator - 05/21/2024 11:30 AM EST IRB# [id number]: Ultra high-field (7 Autumn) MRI of the spinal cord in neurological diseases Sanitary Engineer: Jayjay Miramontes MD, PhD ( Pager: [phone]) Mountain Services Manager: Amauri Garcia ( Pager: [phone]) Called patient regarding eligibility for 7T Spinal Cord study. Left voicemail with coordinator contact information for patient to call back if interested in learning about the study. Amauri Garcia Research Coordinator documented in this encounterPromedica Toledo Hospital12-16-2024 Telephone encounter Note * Telephone Encounter - Amauri Garcia Research Coordinator - 05/07/2024 1:42 PM EST IRB# [id number]: Ultra high-field (7 Autumn) MRI of the spinal cord in neurological diseases Sanitary Engineer: Jayjay Miramontes MD, PhD ( Pager: [phone]) Mountain Services Manager: Amauri Garcia ( Pager: [phone]) Sent MyChart message to patient regarding eligibility for 7T Spinal Cord study. Consent forms attached for patient to reference study information. Will follow up in about a week to see if patient is interested in participating and scheduling a research visit. Amauri Garcia Research Coordinator [facility]12-16-2024 Miscellaneous Notes* Telephone Encounter - Amauri Garcia Research Coordinator - 05/07/2024 1:42 PM EST IRB# [id number]: Ultra high-field (7 Autumn) MRI of the spinal cord in neurological diseases Sanitary Engineer: Jayjay Miramontes MD, PhD ( Pager: [phone]) Mountain Services Manager: Amauri Garcia ( Pager: [phone]) Sent MyChart message to patient regarding eligibility for 7T Spinal Cord study. Consent forms attached for patient to reference study information. Will follow up in about a week to see if patient is interested in participating and scheduling a research visit. Amauri Garcia Research Coordinator documented in this encounterPromedica Toledo Hospital12-13-2024 Instructions* Patient Instructions* Jana Gaviria MD - 05/04/2024 10:30 AM EST - Please get your labs drawn HIDRADENITIS SUPPURATIVA PATIENT INSTRUCTIONS Overview Hidradenitis suppurativa is a chronic condition of the sweat glands. The sweat glands become clogged due to a variety of reasons, leading to enlargement (dilatation) of the ducts behind them. This dilatation predisposes the area to inflammation and infection by a variety of bacteria. Those with hidradenitis suppurativa typically have multiple large, red bumps on the buttocks, breasts, groin, and armpits. The bumps gradually get larger and drain pus. After multiple bouts of this cycle of plugging, enlargement, and drainage, there may be scarring. While there is no cure for hidradenitis suppurativa, you can work with your doctor to treat existing lesions and prevent new ones. Who?s At Risk Hidradenitis suppurativa usually starts soon after puberty and continues into adult life. It is more common in women and in Americans. Hair removal from shaving or using depilatories, deodorants, and irritation from anything rubbing against the affected area can worsen the condition. Hidradenitis suppurativa is often associated with smoking, obesity, and increased hormones. Additionally, it often runs in families. Signs & Symptoms The groin and armpits have high concentrations of sweat glands, which is why these areas are most severely affected by hidradenitis suppurativa. There may also be lesions between the buttocks or under the breasts due to the friction from skin rubbing together, which is why people who are obese are more predisposed to this disease. The lesions of hidradenitis suppurativa are firm tender, red bumps with extensive scar and sinus tracking under the surface of the skin. Often, you will see a pair of blackheads within one lesion, and the lesions may drain pus. Hidradenitis suppurativa lesions are rarely seen on the trunk of the body or on the scalp or legs. Some people may experience only one or few lesions, while others may have severe disease, affectingmany areas. Increasing hormones and excessive perspiration can cause more lesions. Self-Care Guidelines Make sure to wash any red, draining area(s) of hidradenitis suppurativa with an antibacterial soap,and then apply antibiotic ointment and clean bandages. If there is a large amount of drainage, change the gauze pads and dressings often. Warm compresses and ibuprofen can help reduce the swelling. Avoid tight-fitting clothing to prevent further irritation. Weight loss may decrease lesions by decreasing skin folds and, thus, friction on the skin. Smoking should be avoided. Treatments Your doctor may prescribe a topical antibiotic solution for mild areas or a long course of oral antibiotics to treat more severe areas. You may be given an injection of steroids into the deep, painful hidradenitis suppurativa lesions. If excessive hormones are thought to be the problem in a woman, she may be prescribed hormonal therapy. Other systemic medications may be used for severe cases. Surgical removal is often the ideal treatment for severe cases of hidradenitis suppurativa that continue to come back. For additional information, check out the HS Foundation website: http://www.hs-foundation.org/ +++++++++++++++++++++++++++++++++++++++++++++++++++++++++++ YOUR TREATMENT REGIMEN: Wear loose clothing to avoid friction with skin Keep skin clean to reduce odor. Wash all open wounds daily in the shower with soap and water Supplies needed: Start benzoyl peroxide wash: Purchase 4-10% benzoyl peroxide wash over the counter (usually found in the acne aisle). Wash all areas that are ever involved with HS daily in the shower. Rinse thoroughly because it can bleach towels / fabrics. Start clindamycin 1% lotion Apply thin layer twice daily to all areas that are involved with HS. If you get flares in the future, you can return for steroid injections to affected areas every 4-6 weeks. documented in this encounterPromedica [facility]edo Hospital12-13-2024 History of Present illness Narrative* Nazanin Hansen MD - 05/04/2024 9:20 AM EST Dermatology Clinic Visit May 04, 2024 New Patient Dermatology Problem List: # Hidradenitis suppurativa, mchuhg I - BPO, clindamycin lotion, ILK injections q4-6 weeks as needed # Multiple sclerosis - on ocrelizumab # Trichotillomania (eyelashes) CC: LESION, SKIN Allergies & Relevant PMH Reviewed Below: - Personal history of skin cancer: No - Family history of skin cancer: Negative - Personal history of skin problems: Psoriasis - Prior biopsies: No - Tanning bed use: No - Any blistering sunburns in the past? Yes, in childhood - Does patient use sunscreen/hat/protective clothing: Yes - History of organ transplant or immunosuppressants: Yes, why ocrevus - Personal history of seasonal allergies/hay fever/asthma/sinusitis: Negative - Does patient take antibiotics prior to routine dental work: No For females: Is the patient : No Is the patient trying to get : No Does the patient have regular menstrual periods: No: control method: Tubal Ligation All PMH/FSH above obtained by clinical staff has been reviewed and confirmed by me. History of Present Illness: Carrie Bernstein is a 23 year old female who presents with abscess : Lesion 1: - Location: buttocks and vaginal area - Duration: started in 7th grade, thought they were ingrown hairs. Will re-occur in the same areas. - Signs and symptoms: where old lesions had been, seems to be scars. Has gotten small lesions underthe arms. Worsens when shaving - Current using: denies - Has tried in the past: denies - New lesions every month - Lesion in buttock is painful and has minimal drainage. Has been present for 2 months. - Lesion in vaginal area is not currently painful and has drainage. - Armpits have never been involved - Patient reports she has trichotillomania and picks at her eyelashes Drainage on scale of 1-10: 7-8 Pain on scale of 1-10: 8-9 Patient does not smoke. Hx of retinopathy as a teen, was briefly on metformin, but then discontinued For females: Flares with menstrual cycle: No ? Does not recall changes in severity with Currently trying to get ? No ? No Current control methods: salpingectomy Family history of HS or recurrent boils: Sister gets recurrent boils Review of Systems: Relevant ROS listed above Skin as per HPI Physical Exam: LMP 10/23/2023 Constitutional: Well appearing and in NAD Neuro: Alert, oriented x 3 Psych: Pleasant, cooperative and appropriate Skin: Examination of face, neck, abdomen, bilateral upper extremities and bilateral lower extremities, and genitalia was significant for: - R labia with hyperpigmented nodule with overlying scar - R inguinal fold with some scarring - L lower buttock with hyperpigmented nodule - Axillae clear The sensitive examination was discussed with the Patient or Patient's Authorized Road Tester. Asapplicable, any other physician, advance practice provider, medical student, or other health professional student that will be observing or involved in the sensitive examination for educational or training purposes was discussed with the Patient or Authorized Road Tester. The Patient or Authorized Road Tester has agreed to proceed with the sensitive examination. Impression/Plan: # Hidradenitis suppurativa, Mchugh stage I - Medical Complexity: chronic illness - not at treatment goal - Discussed the pathophysiology of HS and extensively explained the risks and benefits of various treatment options including systemic antibiotics, anti- inflammatory medications etc.. At this time, given limited disease, will recommend: - Start benzoyl peroxide 10% wash daily to affected areas - Start clindamycin 1% lotion twice daily to affected areas for flares - Discussed ILK injections, see procedure note below. Will continue q4-6 week injections with nursevisits as needed for flares - Check HgA1c Procedures: Derm Procedures: Intralesional Kenalog: Intralesional Kenalog (triamcinolone) injection: Patient was counseled on the possible side effectsof injection: pain at site, infection, atrophy of skin, systemic absorption, hypopigmentation, lossof hair. Questions if any were addressed before proceeding with prep of the site with rubbing alcohol. Kenalog was injected with sterile syringe and 30 g needle. Patient tolerated well. Concentration: 10 mg/mL Site: L buttock Total volume injected: 0.1 mL Return to clinic in 3-4 months in resident CC Jana Gaviria MD Dermatology, PGY-2 The documentation for this note was completed by June Coreas RN acting as scribe for Nazanin Hansen MD. May 04, 2024 9:50 AM. Attending Note I agree with the ROS, and Past Histories independently gathered by the clinical client support analyst and the remaining scribed note accurately describes my personal service to the patient. I evaluated the patient and personally participated in the turcios components of this encounter. I agree with the resident/fellow's findings and plan as documented and have discussed the case and management of the patient's care with the resident/fellow. The note was annotated by me as needed to reflect my direct input. I assisted during turcios portions of any procedure which was performed by the resident/fellow under mydirect supervision. Signature: Nazanin Hansen MD Date: 05/04/2024 Time: 11:13 AM documented in this encounterPromedica Toledo Hospital12-13-2024 NoteHNO ID: [id number] Author: NAZANIN HANSEN MD Service: ? Author Type: Physician Type: Progress Notes Filed: 05/04/2024 11:16 Note Text: Dermatology Clinic Visit May 04, 2024 New Patient Dermatology Problem List: # Hidradenitis suppurativa, mchugh I - BPO, clindamycin lotion, ILK injections q4-6 weeks as needed # Multiple sclerosis - on ocrelizumab # Trichotillomania (eyelashes) CC: LESION, SKIN Allergies AND Relevant PMH Reviewed Below: - Personal history of skin cancer: No - Family history of skin cancer: Negative - Personal history of skin problems: Psoriasis - Prior biopsies: No - Tanning bed use: No - Any blistering sunburns in the past? Yes, in childhood - Does patient use sunscreen/hat/protective clothing: Yes - History of organ transplant or immunosuppressants: Yes, why ocrevus - Personal history of seasonal allergies/hay fever/asthma/sinusitis: Negative - Does patient take antibiotics prior to routine dental work: No For females: Is the patient : No Is the patient trying to get : No Does the patient have regular menstrual periods: No: control method: Tubal Ligation All PMH/FSH above obtained by clinical staff has been reviewed and confirmed by me. History of Present Illness: Carrie Bernstein is a 23 year old female who presents with abscess : Lesion 1: - Location: buttocks and vaginal area - Duration: started in 7th grade, thought they were ingrown hairs. Will re-occur in the same areas. - Signs and symptoms: where old lesions had been, seems to be scars. Has gotten small lesions under the arms. Worsens when shaving - Current using: denies - Has tried in the past: denies - New lesions every month - Lesion in buttock is painful and has minimal drainage. Has been present for 2 months. - Lesion in vaginal area is not currently painful and has drainage. - Armpits have never been involved - Patient reports she has trichotillomania and picks at her eyelashes Drainage on scale of 1-10: 7-8 Pain on scale of 1-10: 8-9 Patient does not smoke. Hx of retinopathy as a teen, was briefly on metformin, but then discontinued For females: Flares with menstrual cycle: No ? Does not recall changes in severity with Currently trying to get ? No ? No Current control methods: salpingectomy Family history of HS or recurrent boils: Sister gets recurrent boils Review of Systems: Relevant ROS listed above Skin as per HPI Physical Exam: LMP 10/23/2023 Constitutional: Well appearing and in NAD Neuro: Alert, oriented x 3 Psych: Pleasant, cooperative and appropriate Skin: Examination of face, neck, abdomen, bilateral upper extremities and bilateral lower extremities, and genitalia was significant for: - R labia with hyperpigmented nodule with overlying scar - R inguinal fold with some scarring - L lower buttock with hyperpigmented nodule - Axillae clear The sensitive examination was discussed with the Patient or Patient's Authorized Road Tester. As applicable, any other physician, advance practice provider, medical student, or other health professional student that will be observing or involved in the sensitive examination for educational or training purposes was discussed with the Patient or Authorized Road Tester. The Patient or Authorized Road Tester has agreed to proceed with the sensitive examination. Impression/Plan: # Hidradenitis suppurativa, Mchugh stage I - Medical Complexity: chronic illness - not at treatment goal - Discussed the pathophysiology of HS and extensively explained the risks and benefits of various treatment options including systemic antibiotics, anti-inflammatory medications etc.. At this time, given limited disease, will recommend: - Start benzoyl peroxide 10% wash daily to affected areas - Start clindamycin 1% lotion twice daily to affected areas for flares - Discussed ILK injections, see procedure note below. Will continue q4-6 week injections with nurse visits as needed for flares - Check HgA1c Procedures: Derm Procedures: Intralesional Kenalog: Intralesional Kenalog (triamcinolone) injection: Patient was counseled on the possible side effects of injection: pain at site, infection, atrophy of skin, systemic absorption, hypopigmentation, loss of hair. Questions if any were addressed before proceeding with prep of the site with rubbing alcohol. Kenalog was injected with sterile syringe and 30 g needle. Patient tolerated well. Concentration: 10 mg/mL Site: L buttock Total volume injected: 0.1 mL Return to clinic in 3-4 months in resident CC Jana Gaviria MD Dermatology, PGY-2 The documentation for this note was completed by June Coreas RN acting as scribe for Nazanin Hansen MD. May 04, 2024 9:50 AM. Attending Note I agree with the ROS, and Past Histories independently gathered by the clinical supp (more content not included)...[facility]11-27-2024 Telephone encounter Note* Telephone Encounter - Shanon Chiu HUC - 04/18/2024 3:06 PM EST Patient is out of meds and worried about withdraw. [facility]11-27-2024 Miscellaneous Notes* Telephone Encounter - Shanon Chiu HUC - 04/18/2024 3:06 PM EST Patient is out of meds and worried about withdraw. * Telephone Encounter - Leslee Sun - 04/18/2024 2:44 PM EST Source : call from patient requesting refill. Delivery : e-script Requested Prescriptions Pending Prescriptions Disp Refills pregabalin (LYRICA) 50 mg capsule 240 capsule 5 Sig: Please take 150 mg (3 capsules) in the morning, 100 mg (2 capsules) in the afternoon, and 150 mg (3 capsules) at bedtime. DX : Patient last seen 03/14/24 Next Appointment : FYI... requested PA thru [facility] says Electronic prior authorization not required for [facility]. If requesting a quantity above allowable limits, Leslee Brown documented in this encounterPromedica [facility]edo Hospital11-27-2024 Telephone encounter Note * Telephone Encounter - Leslee Sun - 04/18/2024 2:44 PM EST Source : call from patient requesting refill. Delivery : e-script Requested Prescriptions Pending Prescriptions Disp Refills pregabalin (LYRICA) 50 mg capsule 240 capsule 5 Sig: Please take 150 mg (3 capsules) in the morning, 100 mg (2 capsules) in the afternoon, and 150 mg (3 capsules) at bedtime. DX : Patient last seen 03/14/24 Next Appointment : JEANETTE.Carin. requested SUSA[facility] Estradameddarling says Electronic prior authorization not required for [facility]. If requesting a quantity above allowable limits, Leslee Brown [facility]11-26-2024 Telephone encounter Note* Telephone Encounter - Shanon Chiu HUC - 04/17/2024 3:29 PM EST Source :call from patient requesting refill. Delivery : e-script Requested Prescriptions Pending Prescriptions Disp Refills baclofen 10 mg tablet 90 tablet 1 Sig: Take 1 tablet by mouth three times a day. DX : Patient last seen 03/14/2024 Next Appointment : INA Khaill [facility]11-26-2024 Miscellaneous Notes* Telephone Encounter - Shanon Chiu HUC - 04/17/2024 3:29 PM EST Source :call from patient requesting refill. Delivery : e-script Requested Prescriptions Pending Prescriptions Disp Refills baclofen 10 mg tablet 90 tablet 1 Sig: Take 1 tablet by mouth three times a day. DX : Patient last seen 03/14/2024 Next Appointment : INA Khalil documented in this encounterPromedica Toledo Hospital11-14-2024 Hospital Discharge instructions* Discharge Instructions* Ahmet Meneses MD - 04/05/2024 12:33 PM EST Return to this emergency room immediately if your symptoms persist, worsen or if new ones form. Make sure you follow-up with your primary care doctor within the next 1-2 business days. * Attachments The following attachments cannot be sent through Care Everywhere. * UTI (Urinary Tract Infection): Female (Jordanian) documented in this encounterBon [facility] History of Present illness Narrative* Sonya Holloway MD - 03/14/2024 12:12 PM EDT Images from the original note were not included. [facility] FOLLOWUP/ESTABLISHED VIRTUAL PATIENT VISIT I have communicated my name and active licensure. The patient's identity and physical location wereverified at the time of this visit. Either the patient or their legal automobile rental representative has been informed of the risks and benefits of -- and alternatives to -- treatment through a remote evaluation andconsents to proceed with the evaluation remotely. PRINCIPAL NEUROLOGIC DIAGNOSIS: Multiple Sclerosis DISEASE SUMMARY Date of onset: August 2022 Date of diagnosis of MS: October 2022 Disease course at onset: Progressive Current disease course: Progressive with relapses Previous disease therapies: - IVMP x3 days (August 23-09/2023) Current disease therapy: Ocrevus (11/2023-present) Most recent MRI brain: 10/27/2023 (stable vs. [...] Patient consented to proceed with virtual visit. She feels her mobility and sense of heaviness in her extremities has improved, which she attributes to the colder weather. However, she also feels she is now more sensitive to increases in body temperature with transient worsening of symptoms. Feels her pain is a bit worse. Denies infections. Continues to have aching pain that hermosillo as it radiates outward from the center of her body, more frequent/severe in her upper back and BUE, but depends on what specific activities she is engaged in at the time. Taking pregabalin 150 mg, 100 mg (sometimes misses), 150 mg, nortriptyline 20 mg BID, baclofen 10 mg TID. Her pain seems to be adequately controlled on this regimen for now. Doing a combination of light seated and standing cardio. Reports difficulty losing weight after having gained a significant amount after her last . There was a concern for urinary retention at the last visit and saw urology but these symptoms had improved by then. She is supposed to have urodynamic testing but has not yet completed yet. She still has urinary urgency. She has follow-up with urology scheduled. Usual treating team: Oswaldoa/Fellow The patient is accompanied by none. The patient was last seen 01/04/24, currently taking Ocrevus. Since the patient's last visit the patient reports overall feeling improved. Issues with current therapy: Tolerating medication without side effects. Neuro-QoL Functions (higher=better functioning) Flowsheet Row Appointment from [facility]14/2024 [facility] from 01/04/[address] [facility] from 10/28/2023 in [facility] Upper Extremity Domain T Score 33 33 -- Lower Extremity Domain T Score 34 33 31 Cognitive Function Domain T Score 41 43 40 Positive Affect Well Being T Score -- -- -- Ability To Participate In Social Roles T Score 38 41 40 Satisfaction With Social Roles T Score 42 43 39 Neuro-QoL Symptoms (higher=worse symptoms) Flowsheet Row Appointment from 03/14/2024 in [facility] from 01/04/[address] [facility] from 10/28/2023 in [facility] Sleep Domain T Score 62 62 -- Fatigue Domain T Score 58 61 61 Anxiety Domain T Score 58 56 61 Depression Domain T Score 48 50 53 Stigma Domain T Score 59 64 -- Emotional Behavior Dyscontrol T Score -- -- -- has a past medical history of ADHD (attention deficit hyperactivity disorder), Depression, and Endometriosis. has a current medication list which includes the following prescription(s): nortriptyline, baclofen, ocrelizumab, iv contrast, iv contrast, iv contrast, pregabalin, vyvanse, and [DISCONTINUED] gabapentin. EXAM: [facility] 10/23/2023 (Exact Date) General Appearance: well appearing, in no acute distress Mental status evaluation during the interview and examination showed normal level of consciousness,orientation, language, memory, praxis, and higher intellectual function [...] 11/03/2023 ALT 9 11/03/2023 MRI Results No results found for: GLZONWGOO2IV , ENHANCINGLES , CERVICALNEW , SPINEENHACIN ASSESSMENT/PLAN: Carrie Bernstein is a 23 year old female with multiple sclerosis with somewhat atypical presentation of recurrent and progressive myelitis with minimal burden of supratentorial lesions. She is currently maintained on Ocrevus since November 2023, which she is tolerating well and clinically she reports some symptomatic improvement compared to prior to initiation of Ocrevus. Will continue this and repeat MRI brain, c and t-spine to ensure radiographic stability. PLAN: -Continue ocrelizumab every 6 months -Repeat labs at next infusion -Repeat MRI brain, c and t-spine with/without prior to or same day as next infusion in May -Continue baclofen, nortriptyline and pregabalin as prescribed -Follow-up with urology as planned -Follow-up with [facility] after repeat MRI in about 3 months No orders found for this visit on 03/14/24. Jai Ordoñez MD Neuroimmunology Fellow, PGY 5 [facility] Multiple Sclerosis [facility] STAFF PHYSICIAN NOTE OF PERSONAL INVOLVEMENT IN CARE I have reviewed the progress note obtained and documented by the fellow and I personally participated in the turcios components. I have discussed the case and management of the patient's care. The following comments revise or confirm relevant turcios components of their note. IMPRESSION: This is a 23 year old female with spinal cord predominant multiple sclerosis. She is now on ocrelizumab and is tolerating medication. She feels like symptoms have improved and is doing quite well. Discussed that pain is still an issue and medications for that may be associated with weight gain. Continue with increasing exercise and dietary modifications for that, which she is already doing. All questions answered. SIGNATURE: Sonya Holloway MD PhD DATE of SERVICE: March 14, 2024 documented in this encounterPromedica Toledo [facility]09-23-2024 Telephone encounter Note * Telephone Encounter - Karmen Jon - 02/13/2024 1:06 PM EDT Source : call from patient requesting refill. Delivery : e-script Requested Prescriptions Pending Prescriptions Disp Refills nortriptyline (PAMELOR) 10 mg capsule 120 capsule 2 Sig: Take 2 capsules by mouth two times a day. DX : Patient last seen 11-04-23 Next Appointment : Karmen Jon [facility] Work Phone: [phone] Miscellaneous Notes* Telephone Encounter - Karmen Jon - 02/13/2024 1:06 PM EDT Source : call from patient requesting refill. Delivery : e-script Requested Prescriptions Pending Prescriptions Disp Refills nortriptyline (PAMELOR) 10 mg capsule 120 capsule 2 Sig: Take 2 capsules by mouth two times a day. DX : Patient last seen 11-04-23 Next Appointment : Karmen Jon documented in this encounterPromedica Toledo Hospital09-16-2024 History of Present illness Narrative* Jeanna Goodwin - 02/06/2024 2:10 PM EDT Reason for Appointment: Patient ID: Carrie Bernstein is a 23 y.o. female who presents for Pre-op Visit Patient presents today for Pre Op appointment. Patient is scheduled to undergo Da Jodi assisted Bilateral Laparoscopic Salpingectomy on 03/02/[address] Belle at [facility]. MEDICATIONS Current Outpatient Medications Medication Instructions baclofen (LIORESAL) 10 mg, Oral, 3 times daily hydrOXYzine HCl (Atarax) 50 MG tablet TAKE 1 TABLET BY MOUTH ONCE DAILY NEEDED FOR ANXIETY FOR UP TO 15 DAYS. LORazepam (Ativan) 0.5 MG tablet PLEASE SEE ATTACHED FOR DETAILED DIRECTIONS nortriptyline (PAMELOR) 20 mg, Oral, 2 times daily OCRELIZUMAB IV Intravenous pregabalin (Lyrica) 100 MG capsule pregabalin (LYRICA) 50 mg, 150 in the morning, 100 in the afternoon and 150 at night Vyvanse 20 MG capsule Vyvanse 30 MG capsule 1 capsule, Oral, Daily RT ALLERGIES Allergies Allergen Reactions Coconut (Cocos Nucifera) Itching Coconut Flavor Other Reaction(s): Unknown PROBLEMS Active Ambulatory Problems Diagnosis Date Noted Paresthesia of skin 09/15/2023 Stuttering 09/15/2023 Tension headache 09/15/2023 Vitamin D deficiency 09/15/2023 Resolved Ambulatory Problems Diagnosis Date Noted No Resolved Ambulatory Problems Past Medical History: Diagnosis Date ADHD (attention deficit hyperactivity disorder) ([facility] Anxiety Breast screening Depression ([facility]) Dysmenorrhea Endometriosis H/O chlamydia infection Menorrhagia Miscarriage 2019 Multiple sclerosis ([facility]) Numbness PTSD (post-traumatic stress disorder) ([facility] HISTORY PAST MEDICAL HISTORY SOCIAL HISTORY Past Medical History: Diagnosis Date ADHD (attention deficit hyperactivity disorder) ([facility]) Anxiety Breast screening Received clinical breast exam but not referred for further evaluation based on their clinical breast exam. Depression ([facility]) Dysmenorrhea Endometriosis H/O chlamydia infection Menorrhagia Miscarriage 2019 Multiple sclerosis ([facility]) Numbness PTSD (post-traumatic stress disorder) [place] Vitamin D deficiency Social History Tobacco Use Smoking status: Former Current packs/day: 0.00 Types: Cigarettes Start date: 2016 Quit date: 01/01/2023 Years since quittin.0 Smokeless tobacco: Never Tobacco comments: Was a [...] Date ADENOIDECTOMY SECTION, LOW TRANSVERSE 03/2015 CHOLECYSTECTOMY 2015 DILATION AND CURETTAGE OF UTERUS HYSTEROSCOPY 07/21/2021 Hysteroscopy Dilation and Curettage with Laparoscopic Cauterization of Endometriosis Implants and Left Ovarian Cystotomy OTHER SURGICAL HISTORY 2012 b/l tubes OTHER SURGICAL HISTORY laparoscopy for endometriosis PAP SMEAR 2019 TONSILLECTOMY REVIEW OF SYSTEMS Review of Systems: Review of Systems Constitutional: Negative. HENT: Negative. Eyes: Negative. Respiratory: Negative. Cardiovascular: Negative. Gastrointestinal: Negative. Genitourinary: Negative. Musculoskeletal: Negative. Skin: Negative. Neurological: Negative. All other systems reviewed and are negative. Hematological: Negative. Endocrine: Negative. Allergic/Immunologic: Negative. OBJECTIVE Objective: Physical Exam Constitutional: Appearance: Normal appearance. She is well-developed. Cardiovascular: Rate and Rhythm: Normal rate and [...] nursing note reviewed. Exam conducted with a mat worker present. Vitals: Estimated body mass index is 35.02 kg/m as calculated from the following: Height as of 01/09/24: 5' 4 . Weight as of 09/15/23: 204 lb. BP: Patient's last menstrual period was 12/15/2023. ASSESSMENT & PLAN ICD-10-CM 1. Pre-op examination Z01.818 2. Request for sterilization Z30.2 Pre Op: Patient is doing well but has desire for sterilization. I have discussed conservative management vs. surgical management with the patient in detail and patient desires surgical management at this time. Patient has voiced understanding that a Bilateral Salpingectomy is considered to be permanent and patient will undergo Da Jodi assisted Bilateral Laparoscopic Salpingectomy on 03/02/2024. Surgicalconsents were signed, mmc was reviewed, and patient is to proceed to [facility] OR. Follow Up: Patient is to follow up between 1-2 weeks post op to assess proper healing and recovery from procedure. Documented by Josefa San LPN on behalf of: Bennett Belle DO documented in this encounterSaint Louis University Health Science [id number] Instructions* Patient Instructions* Neeru Sifuentes APRN.MEEK - 01/25/2024 2:03 PM EDT We discussed risk factors for recurrent UTI in females and rationale for lifestyle modifications/management including increased fluid intake (2-3 L/day), pre and post coital voiding if applicable, maintaining good bowel regimen, maintaining good hygiene practices (wipe front to back; wearing cottonunderwear, avoiding tight fitting, non-breathable material), use of Probiotics and D-Mannose Recommend over the counter probiotics and D-Mannose (2,000 mg/day) for UTI prevention Will coordinate urodynamics testing with follow up visit for further evaluation documented in this encounterPromedica Toledo Hospital09-04-2024 Nurse Note* Ryan Chatman OCCA - 01/25/2024 1:21 PM EDT Post Void Residual done on patient with 36 cc residual volume remaining. notified. AGATA Molina [facility]09-04-2024 Nurse Note* Ryan Chatman OCCA - 01/25/2024 1:21 PM EDT Post Void Residual done on patient with 36 cc residual volume remaining. notified. AGATA Molina documented in this encounterPromedica Toledo Hospital09-04-2024 History of Present illness Narrative* Neeru Sifuentes 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 - 01/25/2024 1:00 PM EDT Chief Complaint: urinary hesitancy HPI: Carrie Bernstein is a 23 year old female with history of ADHD, depression, endometriosis, multiple sclerosis (diagnosed October 2022) who presents for evaluation of urinary hesitancy and frequent UTI's. Reports having 2-3 UTI's in the past 5-6 months- she feels like UTI's seem to correlate with recentimmunosuppression Rx for MS. Typical UTI symptoms include [...] hygiene practices (wipe front to back; wearing cottonunderwear, avoiding tight fitting, non-breathable material), use of Probiotics and D-Mannose PVR today is 36 Discussed rationale for further evaluation with video UDS Plan -Lifestyle modifications as discussed -Recommend daily probiotics and D-Mannose for UTI prevention -Encourage she check urine culture at onset of UTI symptoms -Refer to Dr. Radha Barillas with video UDS scheduled prior Neeru Sifuentes APRN.CNP documented in this encounterPromedica Toledo Hospital08-19-2024 History of Present illness Narrative* Josefa San LPN - 01/09/2024 1:40 PM EDT Reason for Appointment: Patient ID: Carrie Bernstein is a 23 y.o. female who presents for Contraception Patient presents today for Consult appointment. MEDICATIONS Current Outpatient Medications Medication Instructions baclofen (LIORESAL) 10 mg, Oral, 3 times daily hydrOXYzine HCl (Atarax) 50 MG tablet TAKE 1 TABLET BY MOUTH ONCE DAILY NEEDED FOR ANXIETY FOR UP TO 15 DAYS. nortriptyline (PAMELOR) 20 mg, Oral, 2 times daily OCRELIZUMAB IV Intravenous pregabalin (LYRICA) 50 mg, 150 in the morning, 100 in the afternoon and 150 at night Vyvanse 30 MG capsule 1 capsule, Oral, Daily RT ALLERGIES Allergies Allergen Reactions Coconut Flavor Other Reaction(s): Unknown PROBLEMS Active Ambulatory Problems Diagnosis Date Noted Paresthesia of skin 09/15/2023 Stuttering 09/15/2023 Tension headache 09/15/2023 Vitamin D deficiency 09/15/2023 Resolved Ambulatory Problems Diagnosis Date Noted No Resolved Ambulatory Problems Past Medical History: Diagnosis Date ADHD (attention deficit hyperactivity disorder) ([facility]) Anxiety Breast screening Depression ([facility]) Dysmenorrhea Endometriosis H/O chlamydia infection Menorrhagia Miscarriage 2019 Multiple sclerosis ([facility]) Numbness PTSD (post-traumatic stress disorder) ([facility]) HISTORY PAST MEDICAL HISTORY SOCIAL HISTORY Past Medical History: Diagnosis Date ADHD (attention deficit hyperactivity disorder) ([facility]) Anxiety Breast screening Received clinical breast exam but not referred for further evaluation based on their clinical breast exam. Depression ([facility]) Dysmenorrhea Endometriosis H/O chlamydia infection Menorrhagia Miscarriage 2019 Multiple sclerosis ([facility]) Numbness PTSD (post-traumatic stress disorder) ([facility]) Vitamin D deficiency Social History Tobacco Use Smoking status: Former Current packs/day: 0.00 Types: Cigarettes Start date: 2016 Quit date: 01/01/2023 Years since quittin.0 Smokeless tobacco: Never Tobacco comments: Was a [...] and Left Ovarian Cystotomy OTHER SURGICAL HISTORY 2012 b/l tubes OTHER SURGICAL HISTORY laparoscopy for endometriosis PAP SMEAR 2019 TONSILLECTOMY REVIEW OF SYSTEMS Review of Systems: Review of Systems All other systems reviewed and are negative. OBJECTIVE Objective: Physical Exam Constitutional: Appearance: Normal appearance. She is well-developed. Cardiovascular: Rate and Rhythm: Normal rate and [...] nursing note reviewed. Exam conducted with a mat worker present. Vitals: Estimated body mass index is 35.02 kg/m as calculated from the following: Height as of this encounter: 5' 4 . Weight as of 09/15/23: 204 lb. BP: 118/74 Patient's last menstrual period was 12/15/2023. ASSESSMENT & PLAN Patient presents to office today to discuss sterilization. Patient desires to have bilateral tubal ligation. Patient to setup surgery date with appointment scheduler prior to leaving office today. All options discussed and patient still desires to proceed to OR. Documented by Josefa San LPN on behalf of: Bennett Belle DO documented in this encounterSaint Louis University Health Science [id number] Telephone encounter Note* Telephone Encounter - Tommy Banda - 01/07/2024 9:56 AM EDT Called to assist patient in scheduling pain, psychology, MRIs, and follow-up visit with Dr. Holloway (preferably a Tuesday afternoon and the same day as her MRI). LVM with phone number to call whenready to schedule [facility]08-17-2024 Miscellaneous Notes* Telephone Encounter - Tommy Banda - 01/07/2024 9:56 AM EDT Called to assist patient in scheduling pain, psychology, MRIs, and follow-up visit with Dr. Holloway (preferably a Tuesday afternoon and the same day as her MRI). LVM with phone number to call whenready to schedule documented in this encounterPromedica Toledo Hospital08-14-2024 History of Present illness Narrative* Sonya Holloway MD - 01/04/2024 11:16 AM EDT Images from the original note were not included. [facility] FOLLOWUP/ESTABLISHED VIRTUAL PATIENT VISIT PRINCIPAL NEUROLOGIC DIAGNOSIS: [...] getting headaches 2-3 times/week. These are pressure-like, retro- orbital, sometimes shooting down the back of her neck. Has not been taking medicine for it. Usually resolves after sleeping. Associatedphotophobia but no phonophobia or nausea. She has [...] effects: headache. Neuro-QoL Functions (higher=better functioning) Flowsheet [facility] [...] 39 32 Neuro-QoL Symptoms (higher=worse symptoms) Flowsheet [facility] [...] interview and examination showed normal level of consciousness,orientation, language, memory, praxis, and higher intellectual function [...] and thoracic cord lesions without enhancement. ASSESSMENT/PLAN: Carrie Bernstein is a 23 year old female [...] licensure. The patient's identity and physical location wereverified at the time of this visit. Either the patient or their legal automobile rental representative has been informed of the risks and benefits of -- and alternatives to -- treatment through a remote evaluation andconsents to proceed with the evaluation remotely. Jai Ordoñez MD Neuroimmunology Fellow, PGY 5 [facility] Multiple Sclerosis [facility] STAFF PHYSICIAN NOTE OF PERSONAL INVOLVEMENT [...] a spinal form of multiple sclerosis (OCB+, [id number]: Negative). We have started ocrelizumab and she has been clinically stable.We will plan on a repeat MRI of the brain and spinal cord in April of 2024. Agree with referral to urology and will likely need urodynamic testing. All questions answered. Follow-up in person withMRI studies. SIGNATURE: Sonya Holloway MD PhD DATE of SERVICE: January 05, 2024 ' documented in this encounterPromedica Toledo Hospital08-07-2024 Telephone encounter Note * Telephone Encounter - Leslee Sun - 12/28/2023 4:55 PM EDT Source : mychart from patient requesting refill. Delivery : e-script Requested Prescriptions Pending Prescriptions Disp Refills baclofen 10 mg tablet 90 tablet 2 Sig: Take 1 tablet by mouth three times a day. DX : Patient last seen 11/04/23 Next Appointment : Leslee Brown [facility]08-07-2024 Miscellaneous Notes* Telephone Encounter - Leslee Sun - 12/28/2023 4:55 PM EDT Source : mychart from patient requesting refill. Delivery : e-script Requested Prescriptions Pending Prescriptions Disp Refills baclofen 10 mg tablet 90 tablet 2 Sig: Take 1 tablet by mouth three times a day. DX : Patient last seen 11/04/23 Next Appointment : Leslee Brown documented in this encounterPromedica Toledo Hospital07-31-2024 Telephone encounter Note * Telephone Encounter - Kyaleigh Purvis MD - 12/21/2023 5:15 PM EDT Called [place] [facility] and confirmed previous prescriptions for Macrobid and Atarax have not been picked up. Advised to cancel as I will be sending scripts to [facility] pharmacy now. Kayleigh Purvis MD Neuroimmunology Staff [facility]07-31-2024 Miscellaneous Notes* Telephone Encounter - Kayleigh Purvis MD - 12/21/2023 5:15 PM EDT Called [place] [facility] and confirmed previous prescriptions for Macrobid and Atarax have not been picked up. Advised to cancel as I will be sending scripts to [facility] pharmacy now. Kayleigh Purvis MD Neuroimmunology Staff * Telephone Encounter - Rosalva Bunch RN - 12/21/2023 4:59 PM EDT This RN called and spoke to patient at Dr. Purvis's request. She states that both the Atarax and Macrobid prescriptions were sent to [facility] however, she is no longer in [place]. She states she needs both Rxs re escribed to [facility] on [address] In [place] were she is currently. Please review and process accordingly. * Telephone Encounter - Leslee Sun - 12/21/2023 12:37 PM EDT Source : call from patient requesting refill. [...] 100 mg She switched her pharmacy to [facility] Leslee Brown documented in this encounterPromedica Toledo Hospital07-31-2024 Telephone encounter Note * Telephone Encounter - Rosalva Bunch RN - 12/21/2023 4:59 PM EDT This RN called and spoke to patient at Dr. Purvis's request. She states that both the Atarax and Macrobid prescriptions were sent to [facility] however, she is no longer in [place]. She states she needs both Rxs re escribed to [facility] on [address] In [place] were she is currently. Please review and process accordingly. [facility]07-31-[facility] Telephone encounter Note* Telephone Encounter - Leslee Sun - 12/21/2023 12:37 PM EDT Source : call from patient requesting refill. [...] 100 mg She switched her pharmacy to [facility] Leslee Brown [facility]07-29-2024 Telephone encounter Note* Telephone Encounter - Leslee Sun - 12/19/2023 10:41 AM EDT Source : mychart from patient requesting refill. Delivery : e-script Requested Prescriptions Pending Prescriptions Disp Refills hydrOXYzine HCl (ATARAX) 50 mg tablet 30 tablet 0 Sig: Take 1 tablet by mouth once daily as needed for anxiety. DX : Patient last seen 11/04/23 Next Appointment : pantera Brown [facility]07-29-2024 Miscellaneous Notes* Telephone Encounter - Leslee Sun - 12/19/2023 10:41 AM EDT Source : mychart from patient requesting refill. Delivery : e-script Requested Prescriptions Pending Prescriptions Disp Refills hydrOXYzine HCl (ATARAX) 50 mg tablet 30 tablet 0 Sig: Take 1 tablet by mouth once daily as needed for anxiety. DX : Patient last seen 11/04/23 Next Appointment : pantera rBown documented in this encounterPromedica Toledo Hospital07-16-2024 History of Present illness Narrative* Abigail Sethi RN - 12/06/2023 3:44 PM EDT Patient seen for first dose Ocrevus infusion [...] reassessment and vitals were stable. assessed patient atbedside. Recommended restart of infusion. Patient was agreeable. Patient was monitored and tolerated remainder of infusion well. Patient was discharged in stable condition. documented in this encounterPromedica Toledo Hospital07-11-2024 History of Present illness Narrative* Leslee Sun - 12/01/2023 3:02 PM EDT [employer] form faxed back to [phone] documented in this encounterPromedica Toledo Hospital07-03-2024 Telephone encounter Note * Telephone Encounter - Moriah Marcus APRN.CNP - 11/23/2023 1:55 PM EDT Per previous notes, patient was discharged from hospital on baclofen 5 mg 3 times daily. Her officevisit 10/28/2023 note mentions she was discharged from acute rehab with baclofen 10 mg 3 times daily.On medication review, unable to see this is acute rehab records not included in her chart. The following approved medication requests have been transmitted electronically. Requested Prescriptions Signed Prescriptions Disp Refills baclofen 10 mg tablet 90 tablet 2 Sig: Take 1 tablet by mouth three times a day. Authorizing Provider: MORIAH MARCUS APRN.CNP [facility]07-03-2024 Miscellaneous Notes* Telephone Encounter - Moriah Marcus APRN.CNP - 11/23/2023 1:55 PM EDT Per previous notes, patient was discharged from hospital on baclofen 5 mg 3 times daily. Her officevisit 10/28/2023 note mentions she was discharged from acute rehab with baclofen 10 mg 3 times daily.On medication review, unable to see this is acute rehab records not included in her chart. The following approved medication requests have been transmitted electronically. Requested Prescriptions Signed Prescriptions Disp Refills baclofen 10 mg tablet 90 tablet 2 Sig: Take 1 tablet by mouth three times a day. Authorizing Provider: MORIAH MARCUS APRN.CNP * Telephone Encounter - Karmen Jon - 11/23/2023 1:11 PM EDT Patient states that the prescription is supposed to be 10 mg and not 5 mg. Source : call from patient requesting refill. Delivery : e-script Requested Prescriptions Pending Prescriptions Disp Refills baclofen 5 mg tablet 90 tablet 2 Sig: Take 1 tablet by mouth three times a day. DX : Patient last seen 11-04-2023 Next Appointment : 01-04-2024 Karmen Jon documented in this encounterProm[facility] Telephone encounter Note * Telephone Encounter - Karmen Jon - 11/23/2023 1:11 PM EDT Patient states that the prescription is supposed to be 10 mg and not 5 mg. Source : call from patient requesting refill. Delivery : e-script Requested Prescriptions Pending Prescriptions Disp Refills baclofen 5 mg tablet 90 tablet 2 Sig: Take 1 tablet by mouth three times a day. DX : Patient last seen 11-04-2023 Next Appointment : 01-04-2024 Karmen Jon [facility] Work Phone: [phone] Telephone encounter Note* Telephone Encounter - Carmen Wong DO - 11/07/2023 3:23 PM EDT Patient reports taking 2 tablets (20mg) BID for the past few months. [facility]06-17-2024 Miscellaneous Notes* Telephone Encounter - Carmen Wong DO - 11/07/2023 3:23 PM EDT Patient reports taking 2 tablets (20mg) BID for the past few months. * Telephone Encounter - Leslee Sun - 11/07/2023 2:05 PM EDT Source : call from patient requesting refill. Delivery : e-script Requested Prescriptions Pending Prescriptions Disp Refills nortriptyline (PAMELOR) 10 mg capsule Sig: Take 2 capsules by mouth daily at bedtime. DX : Patient last seen 11/04/23 Next Appointment : pantera REID---Pt says that there may be a dosage issue Leslee Ramses Brown documented in this encounterPromedica [facility]06-17-[facility]24 Telephone encounter Note * Telephone Encounter - Leslee Sun - 11/07/2023 2:05 PM EDT Source : call from patient requesting refill. Delivery : e-script Requested Prescriptions Pending Prescriptions Disp Refills nortriptyline (PAMELOR) 10 mg capsule Sig: Take 2 capsules by mouth daily at bedtime. DX : Patient last seen 11/04/23 Next Appointment : pantera REID---Pt says that there may be a dosage issue Leslee Brown [facility]06-14-2024 Instructions* Patient Instructions* Perri Matamoros 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 - 11/04/2023 3:30 PM EDT [facility] points from today's shared medical visit: The entire process from deciding to start infusion therapy to receiving the infusion typically takes 6-8 weeks. Your [facility] providers, our infusion team, and the pharmacy [...] and malignancies Please plan to have a class c driver for your first few infusions until you are able to determine how you feel after the infusions [employer] (Ocrevus, Rituxan) and [employer] (Ruxience) and [employer] (Briumvi) have excellent financial assistance and co-pay assistance programs. Make sure that you have filled out the patient consent portion of the start form so that they can contact you about these programs. [employer] assistance: Pfizer assistance: [employer]: [phone] Infusions are billed through your MEDICAL insurance benefit, not your pharmacy or drug plan. It is important to understand your deductible and out of pocket costs with your insurance plan. These drugcompanies (as above) help subsidize yearly out of pocket costs. Our financial counselor can give more specific information about your plan and costs: [phone] You may receive a denial from your insurance. In most situations, we have already been notified of this. We will work on an appeal and will also contact the medication companies to see if you qualifyfor medication coverage through them instead of insurance. [...] you to schedule your first infusion dates. Weoffer infusions at [facility], and [place] Please confirm with your primary treatment team, but typically we ask that you stop your current MSmedication about 1-2 weeks prior to your infusion Talk with your PCP regarding any vaccines you may need. We recommend that you do not get any vaccines 2 weeks prior to your infusion and at least 4 weeks after an infusion. NO LIVE VACCINES WHILE ON THESE MEDICATIONS There are support groups available through our [facility] team. Many of the groups [...] gender roles, masculinity, receive emotional support, and navigateresources with peers. Meets of the month 4pm-5pm Caregiver Support Group: Targeting persons in a caregiving role to any neurological condition. Caregivers are able to participate with or without spouse, partner, siblings, adult children, and parents to share concerns, experiences, and resources with other group members. Meets every of the months 4pm-5pm documented in this encounterPromedica [facility]06-14-2024 History of Present illness Narrative* Perri Matamoros APRN.CNP - 11/04/2023 3:15 PM EDT Images from the original note were not [...] licensure. The patient's identity and physical location wereverified at the time of this visit. Either the patient or their legal automobile rental representative has been informed of the risks and benefits of -- and alternatives to -- treatment through a remote evaluation andconsents to proceed with the evaluation remotely. INTERVAL HISTORY: Patient last seen 10/28/23, with diagnosis of Multiple Sclerosis. Currently reports questions regarding multiple sclerosis B cell deleting therapies. Visit conducted over [employer]. They consented to proceed with shared medical [...] interview and examination showed normal level of consciousness,orientation, language, memory, praxis, and higher intellectual function Affect: Normal ASSESSMENT/PLAN: Carrie Bernstein is a 23 year old with [...] prognosis, treatment options, and coordination of care. Perri Matamoros 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 documented in this encounterPromedica Toledo Hospital06-07-2024 History of Present illness Narrative* To Vyas MD - 10/28/2023 1:00 PM EDT Images from the original note were not included. [facility] FOLLOWUP/ESTABLISHED VIRTUAL PATIENT VISIT PRINCIPAL NEUROLOGIC DIAGNOSIS: [...] [facility] . [facility] She denies major side effects related to [...] interview and examination showed normal level of consciousness,language, memory, praxis, and higher intellectual function Affect: [...] disease [on personal review there is right PVlesion and a smaller left PV lesion also [...] within the thoracic spinal cord, most pronounced andcentrally spanning T10-T11. These findings are concerning for [...] had improvement in symptoms with but has hadrecurrence of subacute progressive symptoms post- starting around [...] 2023 without improvement. She was admitted to hospitalfor expedited workup and was discharged to [place] in early September 2023 although she has noticed mild improvement she remains requiring wheelchair/walker. Her neurological examination has previously evidenceof LABOR STANDARDS DIRECTOR injury (in addition to possibly non-organic overlay symptoms). Follow up imaging in October 2023 showed new non-GdE cervical and thoracic cord lesions. Overall, taken together the etiology of progressive and recurrent myelitis at this time is most likely related to autoimmune and inflammatory et iology. Although some atypical features and diagnostic ambiguity [...] person in about 1 month. [facility] on 10/28/23 IMMUNOGLOBULINS,IGG,IGA,IGM COMPLETE BLOOD COUNT AND DIFFERENTIAL COMPREHENSIVE METABOLIC PANEL HEP REMOTE PANEL BL VARICELLA ZOSTER IGG JCV ANTIBODY & INDEX WITH REFLEX BLOOD TB SCREEN CONSULT TO CENTER FOR PAIN RECOVERY (CHRONIC PAIN) Seen with Dr. Vyas. Kayleigh Purvis MD Neuroimmunology Fellow [facility] Multiple Sclerosis NEUROLOGY STAFF ADDENDUM I have [...] which included preparing to see the patient, [id number] patient care, completing clinical documentation, obtaining and/or reviewing separately obtained history and counseling and educating the patient/family/caregiver. I have communicated my name and active licensure. The patient's identity and physical location [[place]]were verified at the time of this visit. Either the patient or their legal automobile rental representative has been informed of the risks and benefits of -- and alternatives to -- treatment through a remote evaluation and consents to proceed with the evaluation remotely. To Vyas MD Staff, Department of Neurology [facility] Multiple Sclerosis documented in this encounterPromedica [facility]edo Hospital06-06-2024 Miscellaneous Notes* Telephone Encounter - Kayleigh Purvis MD - 10/27/2023 11:25 AM EDT Called patient and verified by name and . Discussed neuroimaging demonstrating new non-GdE cervical and thoracic cord lesions. Clinically patient has remained stable since discharge from rehab and remains predominantly requiring wheelchair/walker. Taken together with other results, this likely represents spectrum of relapsing demyelinatingdisorders requiring long-term immunotherapy. Will schedule patient for add-on visit tomorrow pm virtually to discuss further. Kayleigh Purvis MD Neuroimmunology Fellow documented in this encounterPromedica Toledo Hospital06-06-2024 Telephone encounter Note * Telephone Encounter - Moriah Marcus APRN.CNP - 10/27/2023 1:00 PM EDT Addressed by fellow in different encounter. Moriah MARCUS APRN.CNP [facility] Work Phone: 1([phone]) 958-385206-06-2024 Miscellaneous Notes* Telephone Encounter - Moriah Marcus APRN.CNP - 10/27/2023 1:00 PM EDT Addressed by fellow in different encounter. Moriah MARCUS APRN.CNP * Telephone Encounter - Leslee Sun - 10/27/2023 10:16 AM EDT [place] Call Name of caller : Carrie Relationship to patient: Self Return call phone number : [phone] Reason for call : Patient is requesting to review recent MRI because she has questions about lesions documented in this encounterPromedica Toledo Hospital06-06-2024 Telephone encounter Note * Telephone Encounter - Kayleigh Purvis MD - 10/27/2023 11:25 AM EDT Called patient and verified by name and . Discussed neuroimaging demonstrating new non-GdE cervical and thoracic cord lesions. Clinically patient has remained stable since discharge from rehab and remains predominantly requiring wheelchair/walker. Taken together with other results, this likely represents spectrum of relapsing demyelinatingdisorders requiring long-term immunotherapy. Will schedule patient for add-on visit tomorrow pm virtually to discuss further. Kayleigh Purvis MD Neuroimmunology Fellow [facility]06-06-2024 Telephone encounter Note* Telephone Encounter - Leslee Sun - 10/27/2023 10:16 AM EDT [facility] Call Name of caller : Carrie Relationship to patient: Self Return call phone number : [phone] Reason for call : Patient is requesting to review recent MRI because she has questions about lesions [facility]06-06-2024 Telephone encounter Note* Telephone Encounter - Amauri Leblanc APRN.CNP - 10/27/2023 8:36 AM EDT Patient contacted regarding results of tumor board [...] continued imaging to neurology at this time. [facility] Work Phone: [phone] 479-741606-06-2024 Miscellaneous Notes* Telephone Encounter - Amauri Leblanc APRN.CNP - 10/27/2023 8:36 AM EDT Patient contacted regarding results of tumor board [...] neurology at this time. documented in this encounterPromedica Tol[facility] Hospital06-03-2024 Telephone encounter Note * Telephone Encounter - Kayleigh Purvis MD - 10/24/2023 4:43 PM EDT Called patient and confirmed name and . Patient would like medication for anxiety related to MRI. She is not sure what but previously takenany medications was not great. Per PDMP review patient has history of diazepam dispense. Patient does not take any other benzodiazepines regularly or as needed. Will order 0.5 mg of lorazepam to be taken 30 -60 minutes prior to MRI ([facility] on [address] at #[phone]). Advised her not to drive on the day of taking. Patient also denies possibility of . Kayleigh Purvis MD Neuroimmunology Fellow [facility] Miscellaneous Notes* Telephone Encounter - Kayleigh Purvis MD - 10/24/2023 4:43 PM EDT Called patient and confirmed name and . Patient would like medication for anxiety related to MRI. She is not sure what but previously takenany medications was not great. Per PDMP review patient has history of diazepam dispense. Patient does not take any other benzodiazepines regularly or as needed. Will order 0.5 mg of lorazepam to be taken 30 -60 minutes prior to MRI ([facility] on [address] at #[phone]). Advised her not to drive on the day of taking. Patient also denies possibility of . Kayleigh Purvis MD Neuroimmunology Fellow * Telephone Encounter - Genesis Evans - 10/24/2023 4:05 PM EDT [place] Call Name of caller : Carrie Bernstein Relationship to patient: Self Return call phone number : [phone] Reason for call : Other : Brief description of concern : Patient is calling and having MRI's done tomorrow and she forgot to ask you for something for the MRI's. She needs something called into the [facility] [phone]. If any questions, please call her. Please let her know once done. documented in this encounterPromedica [facility] Hospital06-03-2024 Telephone encounter Note * Telephone Encounter - Genesis Evans - 10/24/2023 4:05 PM EDT [place] Call Name of caller : Carrie Bernstein Relationship to patient: Self Return call phone number : [phone] Reason for call : Other : Brief description of concern : Patient is calling and having MRI's done tomorrow and she forgot to ask you for something for the MRI's. She needs something called into the [facility] [phone]. If any questions, please call her. Please let her know once done. [facility] Work Phone: 1(725) 580-376006-03-2024 History of Present illness Narrative* Amauri Leblanc 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 - 10/24/2023 2:00 PM EDT [facility] Neck Pain - Chronic (> 12 weeks) Initial Exam SUBJECTIVE HISTORY OF PRESENT ILLNESS: Carrie Bernstein is a 23 year old female who presents with a chief complaint of low back, neck, arm, and leg pain and is seen in consultation requested by Dr. Sonya Holloway for an opinion regardingmyelopathy . My final recommendations will be communicated [...] she went to the emergency department at [facility] where she was advised to see a neurologist. She then went to [facility] where she had continuation and worsening of symptoms and had a CT of brain and was once again referred to see a neurologist. She then established with Dr. Garcia at [facility]. She states initially she was diagnosed [...] and symptoms in July 2023. She states thatafter experienced an increase in pain for 3 weeks she was attempting to cut her dinner and the painintensified and she began having sensations that her [...] and was referred to a second. At [facility]. She has recently been seen and evaluated by Dr. Holloway. After her initial evaluation with Dr. Holloway she was admitted to the hospital 09/20/2023 through 09/27/2023. During admission lumbar puncture and laboratory studies were completed. At discharge she went to a rehab facility from 09/27/2023 through 10/04/2023. She reports that she has been in a wheelchair due to difficulty with balance andambulation since 09/27/2023. She has recently followed up with Dr. Holloway where a referral to neuro- oncology was placed. At time of today's appointment [...] Gabapentin Physical Therapy: Restart[place]/02[place]202320[place] [facility] [place]: Dr Emanuel - Neurology - [...] contrast demonstrate that the thoracic vertebra and discshave normal height and signal there is normal [...] acute infarct or acute intracranial process. No focallesions in the brain. No evidence for demyelinating process. ASSESSMENT/PLAN Spinal cord lesion (hcc) Myelopathy (hcc) (primary encounter diagnosis) Noble's reflex Carrie Bernstein is a 23 year old female [...] her brain, cervical, and thoracic spine completed tomorrowafternoon 09/24/2023. She is encouraged to complete imaging. [...] treatment plan Imaging Ordered: None SIGNATURE: Amauri Leblanc APRN.CNP PATIENT NAME: Carrie Bernstein DATE: October 24, 2023 TIME: 1:59 PM documented in this encounterPromedica Tol[facility] Hospital05-31-2024 Telephone encounter Note * Telephone Encounter - Amauri Leblanc APRN.CNP - 10/21/2023 3:54 PM EDT Provider called and spoke with patient regarding upcoming appointment. She was verified by name andbirthdate at time of call. At time of call patient states that she thought that she was being evaluated by spine surgery and also a neurology oncologist. She states that she believes that there has been some confusion with thescheduling process. I informed patient that I have reached out to the spine scheduling team to assist with spine surgery consultation. At this time keep will keep patient on my schedule, if we do not hear from the spinescheduling team by Tuesday will change patient's appointment to a virtual appointment to assist withobtaining proper consultations. Patient was agreeable to this plan. [facility] Work Phone: [phone] Miscellaneous Notes* Telephone Encounter - Amauri Leblanc APRN.CNP - 10/21/2023 3:54 PM EDT Provider called and spoke with patient regarding upcoming appointment. She was verified by name andbirthdate at time of call. At time of call patient states that she thought that she was being evaluated by spine surgery and also a neurology oncologist. She states that she believes that there has been some confusion with thescheduling process. I informed patient that I have reached out to the spine scheduling team to assist with spine surgery consultation. At this time keep will keep patient on my schedule, if we do not hear from the spinescheduling team by Tuesday will change patient's appointment to a virtual appointment to assist withobtaining proper consultations. Patient was agreeable to this plan. documented in this encounterPromedica Toledo Hospital05-28-2024 Telephone encounter Note * Telephone Encounter - Uzma Gonzalez APRN.CNP - 10/18/2023 12:52 PM EDT Please send to surgical spine for triage: Referring: Sonya Holloway MD Dx: Cervical spine lesion (with radiographic growth) Patient: Carrie Bernstein Address: Carrie Bernstein [id number] [address] [place] [address] Per Triage: Carrie Bernstein is a 23 year old female with ADHD, depression and history of relapsing cervical myelopathy. She presented from [facility] for relapsing generalized weakness after , pain,and ascending sensory changes. She presented in 08/2022 with subacute myelopathy with imaging demonstrating a lesion in her C-spine. These symptoms improved during and in 08/2023 started to have pain and ascending numbnessand weakness. She was treated with 3 days of IV steroids without improvement. Repeat MRI C spine now with findings concerning for an expansile lesion in the same location as previously non- expansile lesion which is most concerning for demyelinating [...] helpful. Uzma Gonzalez APRN.MEEK October 18, 2023 [facility]-28[facility]2024 Miscellaneous Notes* Telephone Encounter - Uzma Gonzalez APRN.MEEK - 10/18/2023 12:52 PM EDT Please send to surgical spine for triage: Referring: Sonya Holloway MD Dx: Cervical spine lesion (with radiographic growth) Patient: Carrie Bernstein Address: Carrie Bernstein [id number] [address] [place] [address] Per Triage: Carrie Bernstein is a 23 year old female with ADHD, depression and history of relapsing cervical myelopathy. She presented from [facility] for relapsing generalized weakness after , pain,and ascending sensory changes. She presented in 08/2022 with subacute myelopathy with imaging demonstrating a lesion in her C-spine. These symptoms improved during and in 08/2023 started to have pain and ascending numbnessand weakness. She was treated with 3 days of IV steroids without improvement. Repeat MRI C spine now with findings concerning for an expansile lesion in the same location as previously non- expansile lesion which is most concerning for demyelinating [...] sampling may also be helpful. Uzma Gonzalez 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 October 18, 2023 * Telephone Encounter - Katty Cunha R - 10/18/2023 10:13 AM EDT Patient Info Patient Name Sex Carrie Barragan ([id number]) Female 2000 Order Information Date and Time Department Ordering Authorizing 10/04/2023 4:50 PM [facility] Kayleigh Alvarado Daniel Order Providers Authorizing Provider Encounter Provider Sonya Holloway MD Ontaneda, Daniel, MD Future Order [...] 10/24/23 2:00 PM - 45 min Amauri Leblanc 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 Spine Med [facility] Priority and Order Details Priority Class Routine Radha Internal Referral Order History Outpatient Date/Time Action Taken User Additional Information 10/04/23 1650 Sign Kayleigh Purvis MD documented in this encounterPromedica Toledo Hospital05-28-2024 Telephone encounter Note * Telephone Encounter - Katty Cunha R - 10/18/2023 10:13 AM EDT Patient Info Patient Name Sex Carrie Barragan ([id number]) Female 2000 Order Information Date and Time Department Ordering Authorizing 10/04/2023 4:50 PM [facility] Emergency Department Kayleigh Alvarado Daniel Order Providers Authorizing Provider Encounter Provider Sonya Holloway MD Ontaneda, Daniel, MD Future Order [...] 10/24/23 2:00 PM - 45 min Amauri Leblanc 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 Spine Med [facility] Priority and Order Details Priority Class Routine Radha Internal Referral Order History Outpatient Date/Time Action Taken User Additional Information 10/04/23 1650 Sign Kayleigh Purvis MD [facility]05-14-2024 History of Present illness Narrative* Sonya Holloway MD - 10/04/2023 9:00 AM EDT Images from the original note were not included. [facility] FOLLOWUP/ESTABLISHED VIRTUAL PATIENT VISIT PRINCIPAL NEUROLOGIC DIAGNOSIS: [...] pregabalin, baclofen, vyvanse, and [DISCONTINUED] gabapentin. EXAM: [facility] 05/27/2017 Telephone visit. RESULTS: CBC + Diff [...] had improvement in symptoms with but has hadrecurrence of subacute progressive symptoms post- starting around July 2023 with MRI demonstrating expansion in the size of the previously noted lesion again without GdE. The remainder of neuroimaging has been unremarkable. CSF workup has demonstrated lymphocytic pleocytosis and elevated IgGindex and presence of OCBs. Systemic imaging has been unremarkable. She has been treated again with3 days of IVMP in August 2023 without improvement. Her neurological examination has evidence of LABOR STANDARDS DIRECTOR injury (in addition to possibly non-organic overlay symptoms). She was admitted to hospital for expedited workup and was discharged to [place] in early September 2023 although she has [...] also possible. Given the sparse evidence for activeand ongoing LABOR STANDARDS DIRECTOR inflammation, we would hold off on additional immunotherapy and will instead continue with close surveillance as outlined below. PLAN: - Neuro-oncology evaluation. - Repeat neuroimaging in about 3 months or sooner pending neuro-oncology evaluation (ordered with demyelinating protocol but could be adjusted pending above). - Follow up in 3 months after above. [facility] on 10/04/23 MRI BRAIN WO/W IVCON MRI CERVICAL SPINE WO/W IVCON MRI THORACIC SPINE WO/W IVCON Seen with Dr. Holloway. I have communicated my name and active licensure. The patient's identity and physical location [[place]were verified at the time of this visit. Either the patient or their legal automobile rental representative has been informed of the risks and benefits of -- and alternatives to -- treatment through a remote evaluation and consents to proceed with the evaluation remotely. Kayleigh Purvis MD Neuroimmunology Fellow [facility] STAFF PHYSICIAN NOTE OF PERSONAL INVOLVEMENT [...] clinical symptoms closely. All questions answered. SIGNATURE: Sonya Holloway MD PhD DATE of SERVICE: October 04, 2023 [facility] Telephone encounter Note * Telephone Encounter - Kayleigh Purvis MD - 09/30/2023 2:03 PM EDT Called patient and verified by name and [...] the weekend and we will discuss our monitoringplan with her on upcoming appointment (most likely serial radiological monitoring and also referralto neuro-oncology). Future Appointments Date Time Provider Department Center 10/03/2023 1:40 PM Julia Lombardo PA-C [facility] 10/04/2023 9:00 AM [facility] Patient agreeable with the above. Kayleigh Purvis MD Neuroimmunology Fellow [facility] Work Phone: 1(856) 706-786405-10-2024 Miscellaneous Notes* Telephone Encounter - Kayleigh Purvis MD - 09/30/2023 2:03 PM EDT Called patient and verified by name and [...] the weekend and we will discuss our monitoringplan with her on upcoming appointment (most likely serial radiological monitoring and also referralto neuro-oncology). Future Appointments Date Time Provider Department Center 10/03/2023 1:40 PM Julia Lombardo PA-C [facility] 10/04/2023 9:00 AM Sonya Holloway MD [facility] U [facility] Patient agreeable with the above. Kayleigh Purvis MD Neuroimmunology Fellow documented in this encounterPromedica [facility]04-30-2024 Nurse Note* Nay Hoyos MA - 09/20/2023 10:17 AM EDT OCT test completed. Abdirahman Hoyos MA September 20, 2023 10:17 AM [facility]04-30[facility] Nurse Note* Nay Hoyos MA - 09/20/2023 10:17 AM EDT OCT test completed. Abdirahman Hoyos MA September 20, 2023 10:17 AM documented in this encounterPromedica [facility]04-30-2024 Instructions* Patient Instructions* Kayleigh Purvis MD - 09/20/2023 8:53 AM EDT We would recommend proceeding with blood tests and an eye test called OCT today. We will arrange for admission to the hospital. We would like to see you after the above to discuss the results. documented in this encounterPromedica [facility]04-30-2024 History of Present illness Narrative* Sonya Holloway MD - 09/20/2023 7:30 AM EDT Images from the original note were not included. [facility] NEW PATIENT EVALUATION/CONSULTATION Referral source: Eula Garcia DO [address] [place] [address] Also followed by: No care teamcenter consultant to display PRINCIPAL NEUROLOGIC DIAGNOSIS: Myelopathy DISEASE [...] was also experiencing a feeling of squeezing inher abdomen and was seen in the ER [...] results showing possibly expanded cord lesion which didnot help significantly. During this period her pain [...] list which includes the following prescription(s): vyvanse, methocarbamol,iv contrast, enteric contrast, and [DISCONTINUED] gabapentin. Social [...] the arms and legs was performed including rvkma-jf-imprn, rapid-alternating, and fine movements. Rapid movements were [...] almost the entire cord. No thoracic cord lesions.No GdE. Per OSH report, in comparison to 10/15/2022 lesions similar in appearance but slightly larger and further expansion. Previous MRI from 2022 done at [place]. ASSESSMENT: 23 year old right handed female with relevant PMHx ADHD and depression presenting for second opinion regarding myelopathy. She had onset of neurological symptoms around August 2022 progressively and subacutely consistent with myelopathy and found to have a C2/3 non-enhancing lesion (although index im aging not available for personal review) and treated with Medrol dose-pack without improvement. Shehad improvement in symptoms with but has had recurrence of subacute progressive symptoms post- starting around July 2023 with MRI demonstrating expansion in the size of the previously noted lesion again without GdE. The remainder of neuroimaging has been unremarkable. Limited previous CSF workup has demonstrated lymphocytic pleocytosis and elevated IgG index. She has been treatedagain with 3 days of IVMP in August 2023 without improvement and she currently thinks has been having ongoing progressive symptoms. Her neurological examination today has evidence of LABOR STANDARDS DIRECTOR injury (in add ition to possibly non-organic overlay symptoms). Overall, the etiology of myelopathy at this time remains unclear with broad differentials but possibility of neoplastic etiology is raised given the increase in size, the expansile appearance of the lesion, and lack of response to IVMP. However, other causes including inflammatory, infectious, and nutritional need to be evaluated further. Given thediagnostic ambiguity, progression of symptoms/disability, and patient's preference, we will proceedwith direct admission to the neurology service for expedited workup and evaluation. PLAN: - OCT testing today. - Serum testing as outlined below. - Direct admit to general neurology service - discussed with Dr. Osullivan. - CSF testing (routine, infectious, inflammatory including MAC1, cytology). - CT C/A/P w/wo. - Physical therapy and occupational therapy evaluation. - Obtain prior MRI from [facility]. - Adjust neuropathic and muscle relaxant medications during hospitalization. - Urology referral and neuro-oncology evaluation. - Follow up with us after the above. Office Visit on 09/20/23 CT ABD/PEL W IVCON CT CHEST W IVCON IR LUMBAR PUNCTURE DIAGNOSTIC (MC) LABOR STANDARDS DIRECTOR DEMYELINATING DISEASE EVALUATION, SERUM MISC SEND OUT [...] OCT NEURO INST Seen with Dr. Holloway. Kayleigh Purvis MD Neuroimmunology Fellow [facility] STAFF PHYSIC[facility] NOTE OF PERSONAL INVOLVEMENT [...] Given ongoing worsening and suspicion of possible LABOR STANDARDS DIRECTOR malignancy we will admit to hospital. Will need a repeat CSF examination, CT CAP and if negative PET scan. OCT today at [place], and screening blood tests as above. IF above work-up negative would consider consult to neuro-oncology. Appreciate assistance from neurology general team. SIGNATURE: Sonya Holloway MD PhD DATE of SERVICE: September 20, 2023 documented in this encounterPromedica [facility]04-26-2024 Telephone encounter Note * Telephone Encounter - Kayleigh Purvis MD - 09/16/2023 1:45 PM EDT Was able to connect and push over neuroimaging from this year. Was advised prior neuroimaging from 2022 was done at [facility]. Unable to connect electronically to confirm. Kayleigh Purvis MD Neuroimmunology Fellow [facility] Work Phone: 1(544) 455-485304-26-2024 Miscellaneous Notes* Telephone Encounter - Kayleigh Purvis MD - 09/16/2023 1:45 PM EDT Was able to connect and push over neuroimaging from this year. Was advised prior neuroimaging from 2022 was done at [facility]. Unable to connect electronically to confirm. Kayleigh Purvis MD Neuroimmunology Fellow * Telephone Encounter - Kayleigh Purvis MD - 09/16/2023 1:16 PM EDT Attempted to call [facility] [place] several times to obtain OSH images for upcoming appointment but unable to reach. Future Appointments Date Time Provider Department Center 09/20/2023 7:30 AM Sonya Holloway MD [facility] Kayleigh Purvis MD Neuroimmunology Fellow documented in this encounterPromed[facility]04-26-2024 Telephone encounter Note * Telephone Encounter - Kayleigh Purvis MD - 09/16/2023 1:16 PM EDT Attempted to call [facility] [place] several times to obtain OSH images for upcoming appointment but unable to reach. Future Appointments Date Time Provider Department [place] 09/20/2023 7:30 AM Sonya Holloway MD [facility] Kayleigh Purvis MD Neuroimmunology Fellow [facility]05-16-2023 NotePROCEDURE: CT CSPINE WO CON, CT LSPINE WO [...] Electronically authenticated by: SAMMI DONNELLY Date: 2022-10-05 15:55[facility]05-16-2023 NotePROCEDURE: CT CSPINE WO CON, CT LSPINE WO [...] Electronically authenticated by: SAMMI DONNELLY Date: 2022-10-05 15:55[facility] noteNo assessment information availableWilson Street [facility] Work Phone: Evaluation note* Diagnosis Myelopathy (HCC)- Primary Unspecified disease of spinal cord Urinary hesitancy Spinal cord lesion (HCC) Unspecified disease of spinal cord [facility] Diagnosis Demyelinating disease of central nervous system (HCC)- Primary Demyelinating disease of central nervous system, unspecified Spinal cord lesion (HCC) Unspecified disease of spinal cord documented [facility] this encounter [facility]* Diagnosis Mass of spine [M89.8X8]- Primary documented [facility] this [facility]* Diagnosis Anxiety- Primary Anxiety state, unspecified Multiple sclerosis (HCC) Multiple sclerosis documented [facility]* Diagnosis Myelopathy (HCC)- Primary Unspecified disease of spinal cord Spinal cord lesion (HCC) Unspecified disease of spinal cord Noble's reflex Abnormal reflex documented [facility]* Diagnosis Demyelinating disease of central nervous system (HCC) Demyelinating disease of central nervous system, unspecified [facility]* Diagnosis Multiple sclerosis (HCC)- Primary Multiple sclerosis Other chronic pain Progressive multiple sclerosis (HCC) Myelitis (HCC) Unspecified cause of encephalitis, myelitis, and encephalomyelitis documented [facility]* Diagnosis Multiple sclerosis (HCC)- Primary Multiple sclerosis documented in this encounter [facility] note* Diagnosis Anxiety- Primary Anxiety state, unspecified [facility]* Diagnosis Demyelinating disease of central nervous system (HCC)- Primary Demyelinating disease of central nervous system, unspecified documented in this encounter [facility] note* Diagnosis Progressive multiple sclerosis (HCC)- Primary [facility]* Diagnosis Progressive multiple sclerosis (HCC)- Primary [facility]* Diagnosis Multiple sclerosis (HCC)- Primary Multiple sclerosis Urinary retention Retention of urine, unspecified Paraplegia (HCC) Paraplegia Neuropathic pain Neuralgia, neuritis, and radiculitis, unspecified Recurrent UTI Urinary tract infection, site not specified [facility]* Diagnosis Attention deficit hyperactivity disorder (ADHD), unspecified ADHD type- Primary Depression, unspecified depression type documented in this encounter [facility] note* Diagnosis Urinary hesitancy- Primary Frequent UTI Urinary tract infection, site not specified documented in this encounter [facility] note* Diagnosis Screening for genitourinary condition Screening for other and unspecified genitourinary condition [facility]* Diagnosis Multiple sclerosis (HCC)- Primary Multiple sclerosis [facility]* Diagnosis Nausea and vomiting, unspecified vomiting type- Primary Acute cystitis with hematuria Acute cystitis Diarrhea, unspecified type documented in this encounter [facility] note* Diagnosis Multiple sclerosis (HCC) Multiple sclerosis [facility]* Diagnosis Pre-op examination Request for sterilization [facility] Diagnosis Hidradenitis suppurativa- Primary Hidradenitis documented in this encounter [facility]* Diagnosis Sterilization consult Other general counseling and advice for contraceptive management [facility]* Diagnosis 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 note* Diagnosis Multiple sclerosis (HCC) Multiple sclerosis Neuropathic pain Neuralgia, neuritis, and radiculitis, unspecified documented in this encounter [facility] note* Diagnosis Neuropathic pain Neuralgia, neuritis, and radiculitis, unspecified documented in this encounter [facility] note* Diagnosis Acute cystitis without hematuria [facility]* Diagnosis Multiple sclerosis (HCC) Multiple sclerosis Neuropathic pain Neuralgia, neuritis, and radiculitis, unspecified documented in this encounter [facility] note* Diagnosis Multiple sclerosis (HCC) Multiple sclerosis Neuropathic pain Neuralgia, neuritis, and radiculitis, unspecified documented in this encounter [facility] note* Diagnosis Multiple sclerosis (HCC)- Primary Multiple sclerosis Encounter for long-term (current) use of medications Encounter for long-term (current) use of other medications Spasticity Abnormal involuntary movements Ataxia Lack of coordination Mid back pain Backache, unspecified documented in this encounter [facility] note* Diagnosis Multiple sclerosis (HCC) Multiple sclerosis Neuropathic pain Neuralgia, neuritis, and radiculitis, unspecified documented in this encounter [facility] note* Diagnosis Menorrhagia with irregular cycle Cold sore Herpes simplex without mention of complication documented [facility] this [facility] (n[facility] Outpatient Procedure (Routine) - New RequestSpecialtyDiagnoses / ProceduresReferred By ContactReferred To [facility] Diagnoses Urinary hesitancy Procedures FLUROURODYNAMICS WITH EMG EMG STDS ANAL/URTL SPHNCTR OTH/THN NDL Neeur Sifuentes APRN.CNP [address] [place] [address] [place] [id number] Referral IDStatusReasonStart DateExpiration DateVisits RequestedVisits [id number] Request Auto-Generated Referral / [facility] Summary Purpose Family History No Family History Records Found Relationship Condition Age at Onset Recorded Date/T vladislav father Type 2 diabetes mellitus Unknown Advance Directives No Advanced Directives Records Found Advance Directive Response Recorded Date/ Time Advance Directives No January 10:58pm Date ActivatedDate InactivatedComments09/25/2023 3:17 AM09/27/2023 6:23 PMQuestion AnswerCommentsFull Code Order Discussed With:* Patient Date ActivatedDate InactivatedComments09/25/2023 3:17 AM09/27/2023 6:23 PMQuestion AnswerCommentsFull Code Order Discussed With:* Patient Chief Complaint and Reason for Visit Chief Complaint numbness all over amisha dy headache r20.0 E55.9 Chief Complaint numbness all over amisha dy headache r20.0 E55.9 Back/Spine labs Chief Complaint not listed Chief Complaint not listed G37.3 R53.1 Chief Complaint Unknown Reason for Referral SpecialtyDiagnoses / ProceduresReferred By ContactReferred To ContactNeurology / MULTIPLE SCLEROSIS Diagnoses Myelopathy (HCC) Spinal cord lesion (HCC) Procedures CONSULT TO NEUROLOGY OFFICE/OUTPATIENT [facility] 60 MINUTES Sonya Holloway MD [address] [place] [address] Sonya Holloway MD [address] [place] [address] Referral IDStatusReasonStart DateExpiration DateVisits RequestedVisits [id number] PCP Requested Referral /[id number] / ProceduresReferred By ContactReferred To ContactUrology Diagnoses Urinary hesitancy Procedures CONSULT TO UROLOGY OFFICE/OUTPATIENT [facility] 60 MINUTES Sonya Holloway MD [address] [place] [address] Referral IDStatusReasonStart DateExpiration DateVisits RequestedVisits [id number] PCP Requested Referral [id number] / ProceduresReferred By ContactReferred To ContactCT IMAGING Diagnoses Myelopathy (HCC) Procedures CT CHEST W IVCON DIAGNOSTIC COMPUTED TOMOGRAPHY THORAX W/CONTRAST Sonya Holloway MD [address] [facility] [place] [address] [address] [facility] [place] [address] Referral IDStatusReasonStart DateExpiration DateVisits RequestedVisits [id number] Review Auto-Generated Referral [id number] / ProceduresReferred By ContactReferred To ContactCT IMAGING Diagnoses Myelopathy (HCC) Procedures CT ABD/PEL W IVCON CT ABD & PELVIS W/CONTRAST Sonya Holloway MD [address] [facility] [place] [address] [facility] [place] [address] Referral IDStatusReasonStart DateExpiration DateVisits RequestedVisits [id number] Review Auto-Generated Referral [id number] / ProceduresReferred By ContactReferred To ContactNeurology Diagnoses Spinal cord lesion (HCC) Procedures CONSULT TO NEUROLOGY OFFICE/OUTPATIENT [facility] 60 MINUTES Sonya Holloway MD [address] [place] [address] Referral IDStatusReasonStart DateExpiration DateVisits RequestedVisits [id number] PCP Requested Referral [id number] / ProceduresReferred By ContactReferred To ContactMR IMAGING Diagnoses Demyelinating disease of central nervous system (HCC) Procedures MRI THORACIC SPINE WO/W IVCON MRI SPINAL CANAL THORACIC W/O & W/CONTR MATRL Sonya Holloway MD [address] [facility] [place] [place] [address] [facility] [place] [address] Referral IDStatusReasonStart DateExpiration DateVisits RequestedVisits [id number] Review Auto-Generated Referral [id number] / ProceduresReferred By ContactReferred To Contact IMAGING Diagnoses Demyelinating disease of central nervous system (HCC) Procedures MRI CERVICAL SPINE WO/W IVCON MRI SPINAL CANAL CERVICAL W/O & W/CONTR MATRL Sonya Holloway MD [address] [place] [address] [facility] [place] [address] Referral IDStatusReasonStart DateExpiration DateVisits RequestedVisits [id number] Review Auto-Generated Referral [id number] / ProceduresReferred By ContactReferred To [facility] Diagnoses Demyelinating disease of central nervous system (HCC) Procedures MRI BRAIN WO/W IVCON MRI BRAIN BRAIN STEM W/O W/CONTRAST MATERIAL Sonya Holloway MD [address] [place] [address] [facility] [place] [address] Referral IDStatusReasonStart DateExpiration DateVisits RequestedVisits [id number] Review Auto-Generated Referral 1Referral IDStatusReasonStart DateExpiration DateVisits RequestedVisits [id number] Auto-Generated Referral 1Referral IDStatusReasonStart DateExpiration DateVisits RequestedVisits [id number] Auto-Generated Referral 1Referral IDStatusReasonStart DateExpiration DateVisits RequestedVisits [id number] Auto-Generated Referral [id number] / ProceduresReferred By ContactReferred To [facility] Diagnoses Other chronic pain Procedures CONSULT TO [facility] (CHRONIC PAIN) OFFICE/OUTPATIENT [facility] 60 MINUTES To Vyas MD [address] [place] [address] Referral IDStatusReasonStart DateExpiration DateVisits RequestedVisits [id number] Review PCP Requested Referral [id number] / ProceduresReferred By ContactReferred To ContactPsychology Diagnoses Multiple sclerosis (HCC) Procedures CONSULT TO PSYCHOLOGY OFFICE/OUTPATIENT [facility] 60 MINUTES Perri Matamoros 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 [address] [place] [address] Referral IDStatusReasonStart DateExpiration DateVisits RequestedVisits [id number] Review PCP Requested Referral /[id number] / ProceduresReferred By ContactReferred To ContactMR IMAGING Diagnoses Demyelinating disease of central nervous system (HCC) Procedures MRI BRAIN WO/W IVCON MRI BRAIN BRAIN STEM W/O W/CONTRAST MATERIAL To Vyas MD [address] [place] [address] [facility] [place] [address] Referral IDStatusReasonCoweta DateExpiration DateVisits RequestedVisits [id number] Request Auto-Generated Referral [id number] / ProceduresReferred By ContactReferred To ContactMR IMAGING Diagnoses Demyelinating disease of central nervous system (HCC) Procedures MRI THORACIC SPINE WO/W IVCON MRI SPINAL CANAL THORACIC W/O & W/CONTR JAROCHOL To Vyas MD [address] [place] [address] [facility] [place] [address] Referral IDStatusReasonStart DateExpiration DateVisits RequestedVisits [id number] Request Auto-Generated Referral [id number] / ProceduresReferred By ContactReferred To ContactMR IMAGING Diagnoses Demyelinating disease of central nervous system (HCC) Procedures MRI CERVICAL SPINE WO/W IVCON MRI SPINAL CANAL CERVICAL W/O & W/CONTR To Ruiz MD [address] [place] [address] Imaging [place] [address] Referral IDStatusReasonCoweta DateExpiration DateVisits RequestedVisits [id number] Request Auto-Generated Referral /[id number] / ProceduresReferred By ContactReferred To ContactUrology Diagnoses Urinary retention Recurrent UTI Procedures CONSULT TO UROLOGY OFFICE/OUTPATIENT [facility] 60 MINUTES Sonya Holloway MD [address] [facility] [place] [address] Referral IDStatusReasonStart DateExpiration DateVisits RequestedVisits [id number] PCP Requested Referral /[id number] / ProceduresReferred By ContactReferred To Contact Diagnoses Attention deficit hyperactivity disorder (ADHD), unspecified ADHD type Depression, unspecified depression type Procedures CONSULT TO PSYCHIATRY OFFICE/OUTPATIENT [facility] 60 MINUTES Sonya Holloway MD [address] [facility] [place] [address] Referral IDStatusReasonCoweta DateExpiration DateVisits RequestedVisits [id number] Review PCP Requested Referral / Additional Source Comments INFORMATION SOURCE (unrecogn ized section and content) DATE CREATED AUTHOR 11/10/2017 [facility] DATE CREATED AUTHOR AUTHOR'S ORGANIZ ATION 11/11/2017 [facility] DATE CREATED AUTHOR AUTHOR'S ORGANIZ ATION 07/27/2019 [facility] DATE CREATED AUTHOR AUTHOR'S ORGANIZ ATION 11/01/2022 [facility] DATE CREATED AUTHOR AUTHOR'S ORGANIZ ATION 08/23/2023 [facility] DATE CREATED AUTHOR AUTHOR'S ORGANIZ ATION 09/08/2023 [facility] DATE CREATED AUTHOR AUTHOR'S ORGANIZ ATION 09/29/2023 [facility] DATE CREATED AUTHOR AUTHOR'S ORGANIZ ATION 10/26/2023 [facility] DATE CREATED AUTHOR AUTHOR'S ORGANIZ ATION 12/24/2023 [facility] DATE CREATED AUTHOR AUTHOR'S ORGANIZ ATION 03/23/2024 [facility] DATE CREATED AUTHOR AUTHOR'S ORGANIZ ATION 06/01/2024 [facility] DATE CREATED AUTHOR AUTHOR'S ORGANIZ ATION 03/15/2025 [facility] DATE CREATED AUTHOR AUTHOR'S ORGANIZ ATION 03/24/2025 [facility] Care Teams (unrecognized sec tion and content) Team Status: Active Member Role Status Dates Julia Mcguire , MOSAIC TILE MAKER-C Primary Care Provider Active Team Status: Inactive Member Role Status Dates Rosa M Andersen [employer]KER-C Primary Care Provider Active Chadwick Mckeon ProviderActive Team Status: Inactive Member Role Status Dates Julia Mcguire , MOSAIC TILE MAKER-C Primary Care Provider Active Marques Reddy ProviderActive Team Status: Active Member Role Status Dates Julia Mcguire [employer]AIC TILE MAKER-C Primary Care Provider Active Marques Reddy ProviderActive Team Status: Inactive Member Role Status Dates Julia Mcguire [employer]AIC TILE MAKER-C Primary Care Provider Active Start: August 25, 2023 End: August 24bernie Berman , HUNTERNAttending Provider, Referring ProviderActiveStart: August 25, 2023 End: August 25, 2023 Team Status: Inactive Member Role Status Dates Julia Mcguire , MOSAIC TILE MAKER-C Primary Care Provider Active Start: September 15, 2023 End: September 15, 2023Eula Garcia DOAttending ProviderActiveStart: September 15, 2023 End: September 15, 2023Team MemberRelationshipSpecialtyStart DateEnd Date Unknown, Provider, COATER OPERATOR - MOSAIC TILE MAKER PCP - General09/27/23Team MemberRelationshipSpecialtyStart DateEnd Date Daniel Landry MD [address] [facility] [place] [address] [facility]/23 Eula Garcia DO [address] [place] [address] Referring PhysicianNeurology08/24/23 Julia Mcguire MD [address] [place] [id number] Referring PhysicianFamily Medicine08/24/23 Team Status: Inactive Member Role Status Dates Bennett Belle DO Attending Provider Active Start : March 02, 2024 End: March 02, 2024Team MemberRelationshipSpecialtyStart DateEnd Date Unknown, Provider, PCP - General09/27/23Team MemberRelationshipSpecialtyStart DateEnd Date Daniel Landry MD [address] [place] [phone] PCP - GeneralFamily Medicine08/24/23 Eula Garcia DO [address] [place] [id number] Referring PhysicianNeurology08/24/23 Julia Mcguier MD [address] [place] [address] Referring PhysicianFamily Medicine08/24/23Team MemberRelationshipSpecialtyStart DateEnd Date Daniel Landry MD [address] [place] [phone] PCP - GeneralFamily Medicine08/24/23 Eula Garcia DO [address] [place] [address] Referring PhysicianNeurology08/24/23 Julia Mcguire MD [address] [place] [phone] Referring PhysicianFamily Medicine08/24/23Team MemberRelationshipSpecialtyStart DateEnd Date Julia Mcguire S, COATER OPERATOR - CUTTER OPERATOR HELPER [address] [place] [address] [place] [address] PCP - [facility]05/23/24Te MemberRelationshipSpecialtyStart DateEnd Date Daniel Landry MD [address] [place] [address] [facility] - [facility]/24/23 Eula Garcia DO [address] [place] [address] Referring PhysicianNeurology08/24/23 Julia Mcguire MD [address] [place], [place] [address], [place] [address] Referring Physicianmi Medicine08/24/23Team MemberRelationshipSpecialtyStart DateEnd Date Daniel Landry MD [address] [place] [address] [facility] - [facility]/24/23 Flora Quintanilla PA [address] [place] [address] [place] [address] PCP - [facility]08/21/2510 Eula Garica DO [address] [place] [address] Referring PhysicianNeurology08/24/23 Julia Mcguire MD [address] [place], [place] [address], [place] [address] Referring Physicianmily Medicine08/24/23Team MemberRelationshipSpecialtyStart End Daniel Landry MD [address] [place] [address] PCP - [facility]08/24/23 Flora Quintanilla PA [address] [place] [address] [place] [address] PCP - [facility]08/21/2510 Eula Garcia DO [address] [place] [address] Referring PhysicianOhuroswedish [facility]08/24/23 Julia Mcguire MD [facility] [place] [address] Referring [facility]08/24/23Team MemberRelationshipSpecialtyStlookout End Daniel Landry MD [address] [place] [address] PCP - [facility]08/24/23 Flora Quintanilla PA [address] [place] [address] [address] [place], [facility]08/21/2510 Eula Garcia DO [address] [place] [address] Referring PhysicianOhuroswedish medical center [facility]08/24/23 Julia Mcguire MD [address] [place] [address] Referring PhysicianUpson [facility] Medical Center08/24/23 Goals (unrecognized section and content) Goals may [...] or prosecute any alcohol or drug abuse patient.[facility] HospitalIn the event this information is protected by the Federal Confidentiality of Alcohol and Drug Abuse Patient Records regulations: The Federal rules restrict any use of the information to criminally investigate or prosecute any alcohol or drug abuse patient.[facility] HospitalIn the event this information is protected by the Federal Confidentiality of Alcohol and Drug Abuse Patient Records regulations: The Federal rules restrict any use of the information to criminally investigate or prosecute any alcohol or drug abuse patient.[facility] HospitalIn the event this information is protected by the Federal Confidentiality of Alcohol and Drug Abuse Patient Records regulations: The Federal rules restrict any use of the information to criminally investigate or prosecute any alcohol or drug abuse patient.[facility] HospitalIn the event this information is protected by the Federal Confidentiality of Alcohol and Drug Abuse Patient Records regulations: The Federal rules restrict any use of the information to criminally investigate or prosecute any alcohol or drug abuse patient.[facility] HospitalIn the event this information is protected by the Federal Confidentiality of Alcohol and Drug Abuse Patient Records regulations: The Federal rules restrict any use of the information to criminally investigate or prosecute any alcohol or drug abuse patient.[facility] HospitalIn the event this information is protected by the Federal Confidentiality of Alcohol and Drug Abuse Patient Records regulations: The Federal rules restrict any use of the information to criminally investigate or prosecute any alcohol or drug abuse patient.[facility] HospitalIn the event this information is protected by the Federal Confidentiality of Alcohol and Drug Abuse Patient Records regulations: The Federal rules restrict any use of the information to criminally investigate or prosecute any alcohol or drug abuse patient.[facility] HospitalIn the event this information is protected by the Federal Confidentiality of Alcohol and Drug Abuse Patient Records regulations: The Federal rules restrict any use of the information to criminally investigate or prosecute any alcohol or drug abuse patient.[facility] HospitalIn the event this information is protected by the Federal Confidentiality of Alcohol and Drug Abuse Patient Records regulations: The Federal rules restrict any use of the information to criminally investigate or prosecute any alcohol or drug abuse patient.[facility] HospitalIn the event this information is protected by the Federal Confidentiality of Alcohol and Drug Abuse Patient Records regulations: The Federal rules restrict any use of the information to criminally investigate or prosecute any alcohol or drug abuse patient.[facility] HospitalIn the event this information is protected by the Federal Confidentiality of Alcohol and Drug Abuse Patient Records regulations: The Federal rules restrict any use of the information to criminally investigate or prosecute any alcohol or drug abuse patient.[facility] HospitalIn the event this information is protected by the Federal Confidentiality of Alcohol and Drug Abuse Patient Records regulations: The Federal rules restrict any use of the information to criminally investigate or prosecute any alcohol or drug abuse patient.[facility] HospitalIn the event this information is protected by the Federal Confidentiality of Alcohol and Drug Abuse Patient Records regulations: The Federal rules restrict any use of the information to criminally investigate or prosecute any alcohol or drug abuse patient.[facility] HospitalIn the event this information is protected by the Federal Confidentiality of Alcohol and Drug Abuse Patient Records regulations: The Federal rules restrict any use of the information to criminally investigate or prosecute any alcohol or drug abuse patient.[facility] HospitalIn the event this information is protected by the Federal Confidentiality of Alcohol and Drug Abuse Patient Records regulations: The Federal rules restrict any use of the information to criminally investigate or prosecute any alcohol or drug abuse patient.[facility] HospitalIn the event this information is protected by the Federal Confidentiality of Alcohol and Drug Abuse Patient Records regulations: The Federal rules restrict any use of the information to criminally investigate or prosecute any alcohol or drug abuse patient.[facility] HospitalIn the event this information is protected by the Federal Confidentiality of Alcohol and Drug Abuse Patient Records regulations: The Federal rules restrict any use of the information to criminally investigate or prosecute any alcohol or drug abuse patient.[facility] HospitalIn the event this information is protected by the Federal Confidentiality of Alcohol and Drug Abuse Patient Records regulations: The Federal rules restrict any use of the information to criminally investigate or prosecute any alcohol or drug abuse patient.[facility] HospitalIn the event this information is protected by the Federal Confidentiality of Alcohol and Drug Abuse Patient Records regulations: The Federal rules restrict any use of the information to criminally investigate or prosecute any alcohol or drug abuse patient.[facility] HospitalIn the event this information is protected by the Federal Confidentiality of Alcohol and Drug Abuse Patient Records regulations: The Federal rules restrict any use of the information to criminally investigate or prosecute any alcohol or drug abuse patient.[facility] HospitalIn the event this information is protected by the Federal Confidentiality of Alcohol and Drug Abuse Patient Records regulations: The Federal rules restrict any use of the information to criminally investigate or prosecute any alcohol or drug abuse patient.[facility] HospitalIn the event this information is protected by the Federal Confidentiality of Alcohol and Drug Abuse Patient Records regulations: The Federal rules restrict any use of the information to criminally investigate or prosecute any alcohol or drug abuse patient.[facility] HospitalIn the event this information is protected by the Federal Confidentiality of Alcohol and Drug Abuse Patient Records regulations: The Federal rules restrict any use of the information to criminally investigate or prosecute any alcohol or drug abuse patient.[facility] HospitalIn the event this information is protected by the Federal Confidentiality of Alcohol and Drug Abuse Patient Records regulations: The Federal rules restrict any use of the information to criminally investigate or prosecute any alcohol or drug abuse patient.[facility] HospitalIn the event this information is protected by the Federal Confidentiality of Alcohol and Drug Abuse Patient Records regulations: The Federal rules restrict any use of the information to criminally investigate or prosecute any alcohol or drug abuse patient.[facility] HospitalIn the event this information is protected by the Federal Confidentiality of Alcohol and Drug Abuse Patient Records regulations: The Federal rules restrict any use of the information to criminally investigate or prosecute any alcohol or drug abuse patient.[facility] HospitalIn the event this information is protected by the Federal Confidentiality of Alcohol and Drug Abuse Patient Records regulations: The Federal rules restrict any use of the information to criminally investigate or prosecute any alcohol or drug abuse patient.[facility] HospitalIn the event this information is protected by the Federal Confidentiality of Alcohol and Drug Abuse Patient Records regulations: The Federal rules restrict any use of the information to criminally investigate or prosecute any alcohol or drug abuse patient.[facility] HospitalIn the event this information is protected by the Federal Confidentiality of Alcohol and Drug Abuse Patient Records regulations: The Federal rules restrict any use of the information to criminally investigate or prosecute any alcohol or drug abuse patient.[facility] HospitalIn the event this information is protected by the Federal Confidentiality of Alcohol and Drug Abuse Patient Records regulations: The Federal rules restrict any use of the information to criminally investigate or prosecute any alcohol or drug abuse patient.[facility] HospitalIn the event this information is protected by the Federal Confidentiality of Alcohol and Drug Abuse Patient Records regulations: The Federal rules restrict any use of the information to criminally investigate or prosecute any alcohol or drug abuse patient.[facility] HospitalIn the event this information is protected by the Federal Confidentiality of Alcohol and Drug Abuse Patient Records regulations: The Federal rules restrict any use of the information to criminally investigate or prosecute any alcohol or drug abuse patient.[facility] HospitalIn the event this information is protected by the Federal Confidentiality of Alcohol and Drug Abuse Patient Records regulations: The Federal rules restrict any use of the information to criminally investigate or prosecute any alcohol or drug abuse patient.[facility] HospitalIn the event this information is protected by the Federal Confidentiality of Alcohol and Drug Abuse Patient Records regulations: The Federal rules restrict any use of the information to criminally investigate or prosecute any alcohol or drug abuse patient.[facility] HospitalIn the event this information is protected by the Federal Confidentiality of Alcohol and Drug Abuse Patient Records regulations: The Federal rules restrict any use of the information to criminally investigate or prosecute any alcohol or drug abuse patient.[facility] HospitalIn the event this information is protected by the Federal Confidentiality of Alcohol and Drug Abuse Patient Records regulations: The Federal rules restrict any use of the information to criminally investigate or prosecute any alcohol or drug abuse patient.[facility] HospitalIn the event this information is protected by the Federal Confidentiality of Alcohol and Drug Abuse Patient Records regulations: The Federal rules restrict any use of the information to criminally investigate or prosecute any alcohol or drug abuse patient.[facility] HospitalIn the event this information is protected by the Federal Confidentiality of Alcohol and Drug Abuse Patient Records regulations: The Federal rules restrict any use of the information to criminally investigate or prosecute any alcohol or drug abuse patient.[facility] HospitalIn the event this information is protected by the Federal Confidentiality of Alcohol and Drug Abuse Patient Records regulations: The Federal rules restrict any use of the information to criminally investigate or prosecute any alcohol or drug abuse patient.[facility] HospitalIn the event this information is protected by the Federal Confidentiality of Alcohol and Drug Abuse Patient Records regulations: The Federal rules restrict any use of the information to criminally investigate or prosecute any alcohol or drug abuse patient.[facility] HospitalIn the event this information is protected by the Federal Confidentiality of Alcohol and Drug Abuse Patient Records regulations: The Federal rules restrict any use of the information to criminally investigate or prosecute any alcohol or drug abuse patient.[facility] HospitalIn the event this information is protected by the Federal Confidentiality of Alcohol and Drug Abuse Patient Records regulations: The Federal rules restrict any use of the information to criminally investigate or prosecute any alcohol or drug abuse patient.[facility] HospitalIn the event this information is protected by the Federal Confidentiality of Alcohol and Drug Abuse Patient Records regulations: The Federal rules restrict any use of the information to criminally investigate or prosecute any alcohol or drug abuse patient.[facility] HospitalIn the event this information is protected by the Federal Confidentiality of Alcohol and Drug Abuse Patient Records regulations: The Federal rules restrict any use of the information to criminally investigate or prosecute any alcohol or drug abuse patient.[facility] HospitalIn the event this information is protected by the Federal Confidentiality of Alcohol and Drug Abuse Patient Records regulations: The Federal rules restrict any use of the information to criminally investigate or prosecute any alcohol or drug abuse patient.[facility] HospitalIn the event this information is protected by the Federal Confidentiality of Alcohol and Drug Abuse Patient Records regulations: The Federal rules restrict any use of the information to criminally investigate or prosecute any alcohol or drug abuse patient.[facility] HospitalIn the event this information is protected by the Federal Confidentiality of Alcohol and Drug Abuse Patient Records regulations: The Federal rules restrict any use of the information to criminally investigate or prosecute any alcohol or drug abuse patient.[facility] HospitalIn the event this information is protected by the Federal Confidentiality of Alcohol and Drug Abuse Patient Records regulations: The Federal rules restrict any use of the information to criminally investigate or prosecute any alcohol or drug abuse patient.[facility] HospitalIn the event this information is protected by the Federal Confidentiality of Alcohol and Drug Abuse Patient Records regulations: The Federal rules restrict any use of the information to criminally investigate or prosecute any alcohol or drug abuse patient.[facility] HospitalIn the event this information is protected by the Federal Confidentiality of Alcohol and Drug Abuse Patient Records regulations: The Federal rules restrict any use of the information to criminally investigate or prosecute any alcohol or drug abuse patient.[facility] HospitalIn the event this information is protected by the Federal Confidentiality of Alcohol and Drug Abuse Patient Records regulations: The Federal rules restrict any use of the information to criminally investigate or prosecute any alcohol or drug abuse patient.[facility] HospitalIn the event this information is protected by the Federal Confidentiality of Alcohol and Drug Abuse Patient Records regulations: The Federal rules restrict any use of the information to criminally investigate or prosecute any alcohol or drug abuse patient.[facility] HospitalIn the event this information is protected by the Federal Confidentiality of Alcohol and Drug Abuse Patient Records regulations: The Federal rules restrict any use of the information to criminally investigate or prosecute any alcohol or drug abuse patient.[facility] HospitalIn the event this information is protected by the Federal Confidentiality of Alcohol and Drug Abuse Patient Records regulations: The Federal rules restrict any use of the information to criminally investigate or prosecute any alcohol or drug abuse patient.[facility] HospitalIn the event this information is protected by the Federal Confidentiality of Alcohol and Drug Abuse Patient Records regulations: The Federal rules restrict any use of the information to criminally investigate or prosecute any alcohol or drug abuse patient.[facility] HospitalIn the event this information is protected by the Federal Confidentiality of Alcohol and Drug Abuse Patient Records regulations: The Federal rules restrict any use of the information to criminally investigate or prosecute any alcohol or drug abuse patient.[facility] HospitalIn the event this information is protected by the Federal Confidentiality of Alcohol and Drug Abuse Patient Records regulations: The Federal rules restrict any use of the information to criminally investigate or prosecute any alcohol or drug abuse patient.[facility] HospitalIn the event this information is protected by the Federal Confidentiality of Alcohol and Drug Abuse Patient Records regulations: The Federal rules restrict any use of the information to criminally investigate or prosecute any alcohol or drug abuse patient.[facility] HospitalIn the event this information is protected by the Federal Confidentiality of Alcohol and Drug Abuse Patient Records regulations: The Federal rules restrict any use of the information to criminally investigate or prosecute any alcohol or drug abuse patient.[facility] HospitalIn the event this information is protected by the Federal Confidentiality of Alcohol and Drug Abuse Patient Records regulations: The Federal rules restrict any use of the information to criminally investigate or prosecute any alcohol or drug abuse patient.[facility] HospitalIn the event this information is protected by the Federal Confidentiality of Alcohol and Drug Abuse Patient Records regulations: The Federal rules restrict any use of the information to criminally investigate or prosecute any alcohol or drug abuse patient.[facility] HospitalIn the event this information is protected by the Federal Confidentiality of Alcohol and Drug Abuse Patient Records regulations: The Federal rules restrict any use of the information to criminally investigate or prosecute any alcohol or drug abuse patient.[facility] HospitalIn the event this information is protected by the Federal Confidentiality of Alcohol and Drug Abuse Patient Records regulations: The Federal rules restrict any use of the information to criminally investigate or prosecute any alcohol or drug abuse patient.[facility] HospitalIn the event this information is protected by the Federal Confidentiality of Alcohol and Drug Abuse Patient Records regulations: The Federal rules restrict any use of the information to criminally investigate or prosecute any alcohol or drug abuse patient.[facility] HospitalIn the event this information is protected by the Federal Confidentiality of Alcohol and Drug Abuse Patient Records regulations: The Federal rules restrict any use of the information to criminally investigate or prosecute any alcohol or drug abuse patient.[facility] HospitalIn the event this information is protected by the Federal Confidentiality of Alcohol and Drug Abuse Patient Records regulations: The Federal rules restrict any use of the information to criminally investigate or prosecute any alcohol or drug abuse patient.[facility] HospitalIn the event this information is protected by the Federal Confidentiality of Alcohol and Drug Abuse Patient Records regulations: The Federal rules restrict any use of the information to criminally investigate or prosecute any alcohol or drug abuse patient.[facility] Reason for Visit (unrecogniz ed section and content) ReasonCommentsInfusionOcrevusSpecialtyDiagnoses / ProceduresReferred By Contact Referred To Contact Diagnoses Progressive multiple sclerosis (HCC) Procedures INJECTION, OCRELIZUMAB, 1 MG To Vyas MD [address] [place] [address] Neur [facility] [address] [place] [id number] Referral IDStatusReasonStlookout DateExpiration DateVisits RequestedVisits [id number]/7/20241/244332IfgyokShizxgqgEue Patient EvaluationSpecialtyDiagnoses / ProceduresReferred By ContactReferred To Contact Neurology / MULTIPLE SCLEROSIS Diagnoses Myelopathy (HCC) Spinal cord lesion (HCC) Procedures CONSULT TO NEUROLOGY OFFICE/OUTPATIENT [facility] 60 MINUTES Sonya Holloway MD [address] [place] [address] Sonya Holloway MD [address] [place] [address] Referral IDStatusReasonStlookout DateExpiration DateVisits RequestedVisits [id number] PCP Requested Referral /[id number]l Patient Follow-UpReasonComments TriageInternal ReferralReasonCommentsCare Coordinator - OtherReasonComments Patient QuestionNeed something for MRI's tomorrowReasonCommentsNeck Pain SpecialtyDiagnoses / ProceduresReferred By ContactReferred To ContactNeurology Diagnoses Spinal cord lesion (HCC) Procedures CONSULT TO NEUROLOGY OFFICE/OUTPATIENT [facility] 60 MINUTES Sonya Holloway MD [address] [place] [address] Referral IDStatusReasonStlookout DateExpiration DateVisits RequestedVisits [id number] PCP Requested Referral [id number] / ProceduresReferred By ContactReferred To ContactMR IMAGING Diagnoses Demyelinating disease of central nervous system (HCC) Procedures MRI BRAIN WO/W IVCON MRI BRAIN BRAIN STEM W/O W/CONTRAST MATERIAL Sonya Holloway MD [address] [place] [address] [facility] [place] [address] Referral IDStatusReasonStart DateExpiration DateVisits RequestedVisits [id number] Auto-Generated Referral [id number] / ProceduresReferred By ContactReferred To Contact IMAGING Diagnoses Demyelinating disease of central nervous system (HCC) Procedures MRI CERVICAL SPINE WO/W IVCON MRI SPINAL CANAL CERVICAL W/O & W/CONTR Sonya Diaz MD [address] [place] [address] [facility] [place] [address] Referral IDStatusReasonStart DateExpiration DateVisits RequestedVisits [id number] Auto-Generated Referral [id number] / ProceduresReferred By ContactReferred To Contact IMAGING Diagnoses Demyelinating disease of central nervous system (HCC) Procedures MRI THORACIC SPINE WO/W IVCON MRI SPINAL CANAL THORACIC W/O & W/CONTR Sonya Diaz MD [address] [place] [address] [facility] [place] [address] Referral IDStatusReasonStart DateExpiration DateVisits RequestedVisits [id number] Auto-Generated Referral [id number] QuestionPatient is requesting to review recent MRI because she has questions about lesionsReasonComments Established Patient Follow-UpReasonCommentsEstablished Patient Bruddz-BgG-ulop SMAReasonOnset DateCommentsRefill Muxnfrx09/17/2024ReasonOnset DateComments Refill Vycuzku10/03/2024ReasonCommentsFormsFirst energy form faxed back to [phone]nlssSgnzf DateCommentsRefill Request 4ReasonOnset DateCommentsRefill Damwuac62/31/2024ReasonOnset Date CommentsRefill Ntkyajw92/07/2024ReasonCommentsAppointmentCalled to assist patient in scheduling pain, psychology, MRIs, and follow-up visit with Dr. Holloway (preferably a Tuesday afternoon and the same day as her MRI). LVM with phone number to call whenready to scheduleReasonCommentsConsultSpecialty Diagnoses / ProceduresReferred By ContactReferred To ContactUrology Diagnoses Urinary retention Recurrent UTI Procedures CONSULT TO UROLOGY OFFICE/OUTPATIENT [facility] 60 MINUTES Sonya Holloway MD [address] [place] [address] Referral IDStatusReasonStart DateExpiration DateVisits RequestedVisits [id number] PCP Requested Referral /[id number] DateCommentsRefill Ktrmncl0102/13/2024eason CommentsEstablished Patient Follow-UpReasonCommentsFatigueNauseaVomitingPt states fell asleep last night before taking her nighttime medication. Pt states vomiting and nausea since 0700 this morning.ReasonOnset DateCommentsRefill Zmeotak8004/17/2024easonOnset DateCommentsRefill Zauyhdm08/27/2024ReasonComments Pre-op VisitReasonCommentsLESION, SKINReasonCommentsContraceptionReasonComments Research F/UReasonOnset DateCommentsRefill Evnhxmh7605/22/2024easonComments Extremity WeaknessReports hx of MS, missed doses of medications due to pharmacy being closedReferral IDStatusReasonStart DateExpiration DateVisits Requested Visits [id number]/7/20241/727842IgitquYeeoc DateComments Refill Wktkowi9507/03/2024ReasonOnset DateCommentsRefill Xaymswq9007/24/2024Reason Onset DateCommentsRefill Guewmya4709/19/2024ReasonOnset DateCommentsRefill Request 09/27/2024ReasonOnset DateCommentsRefill Klqgmql4810/22/2024ReasonOnset Date CommentsOpened In Error10/24/2024ReasonCommentsAppointmentLeft voicemail regarding scheduling follow up appointment with Amie fellow on 12/19 infusion date. Scheduling number included for call back.ReasonCommentsAppointmentPlease contact patient to schedule a virtual visit with Rae Ritter in 1 month and to move her June infusion and appointment to the same day vm was leftReason Onset DateCommentsRefill Bakzbta2101/22/2025ReasonCommentsDiscuss Ablation Ordered Prescriptions (unrec ognized section and content) PrescriptionSigDispensedRefillsStart DateEnd Date ondansetron (ZOFRAN-ODT) 4 MG disintegrating tablet Take 1 tablet by mouth 3 times daily as needed for Nausea or Vomiting 15 tablet 04/05/2024 cephALEXin (KEFLEX) 500 MG capsule Take 1 capsule by mouth 4 times daily for 20 days 20 capsule /rescriptionSigDispensedRefillsStart DateEnd Date nortriptyline (PAMELOR) 10 MG capsule Take 2 capsules by mouth 2 times daily for 2 days 8 capsule /07/2024 cephALEXin (KEFLEX) 500 MG capsule Take 1 capsule by mouth 2 times daily for 7 days 14 capsule baclofen (LIORESAL) 10 MG tablet Take 1 tablet by mouth 3 times daily for 2 days 6 tablet Scheduled Active and Recently Administ ered Medications (unrecognized section and content) Medication Order/ cefTRIAXone (ROCEPHIN) 1,000 mg in sterile water 2.86 mL IM Injection (COMPLETED) 1,000 mg, IntraMUSCular, ONCE, 1 dose, On Mar 04/05/24 at 1200, Antimicrobial Indications: Urinary Tract Infection, 1 g vial - Add 2.1 mL of sterile water to make a concentration of 350 mg/mL. 500 mgvial - Add 1 mL of sterile water to make a concentration of 350 mg/mL. * 1218 (Given - Provider: Radha Brooks, GERMÁN) fluconazole (DIFLUCAN) tablet 150 mg (COMPLETED) 150 mg, Oral, ONCE, 1 dose, On Mar 04/05/24 at 1200 * 1218 (Given - Provider: Radha Brooks, GERMÁN) ondansetron (ZOFRAN) injection 4 mg (COMPLETED) 4 mg, IntraVENous, ONCE, 1 dose, On Mar 04/05/24 at 1230 * 1240 (Given - Provider: Radha Brooks RN) Medication Order//[id number]/ ondansetron (ZOFRAN-ODT) disintegrating tablet 4 mg 4 mg, Oral, EVERY 8 HOURS PRN, Starting on Mar 04/05/24 at 1037, Until Discontinued, Nausea, Vomiting * 1101 (Given - Provider: Radha Brooks RN) Medication Order// baclofen (LIORESAL) tablet 10 mg (COMPLETED) 10 mg, Oral, ONCE, 1 dose, On Tue05/23/24 at 1145 * 1156 (Given - Provider: Indiana Kemp RN) cephALEXin (KEFLEX) capsule 500 mg (COMPLETED) 500 mg, Oral, ONCE, 1 dose, On Tue05/23/24 at 1400, Antimicrobial Indications: Urinary Tract Infection * 1400 (Given - Provider: Indiana Kemp, GERMÁN) nortriptyline (PAMELOR) capsule 20 mg (COMPLETED) 20 mg, Oral, ONCE, 1 dose, On Tue05/23/24 at 1145 * 1156 (Given - Provider: [place] Kemp RN) FOR RECORDS PERTAINING TO PATIENTS WHO ARE [...] BE BASED ON THE PRIMARY CLINICAL RECORDS. [employer] [facility]. provides no warranty or guarantee of the accuracy or completeness of information in this document.
== END 2025-04-15 12:31 | disposition home or self-care (01) ==
LOC: LAB 12:30
PROVIDERS: PCP Nurse Practitioner Family; Visit Provider Obstetrics & Gynecology
DX: N92.1 Excessive and frequent menstruation with irregular cycle (principal)
CPT/HCPCS: 88305

== ENCOUNTER 2025-05-06 12:42 | Outpatient (OUT) | payer MEDICARE, MEDICAID, SELFPAY ==
--- NOTE | 2025-05-06 13:26 | XR_ITS ---
The [address] [address] Patient Name: LADI FERREIRA MRN: [id number] date: 2000 Sex: F Assigned Patient Location: [facility] Current Patient Location: [facility] Accession/Order Number: [id number] Exam Date: 05/06/2025 13:20 Report Date: 05/06/2025 13:49 At the request of: MARY WILKS DO Procedure: XR chest 2V PA AND LATERAL CHEST: CLINICAL HISTORY: Preoperative clearance. Tobacco use. COMPARISON: 02/22/2024 There is no focal parenchymal consolidation, effusion or pneumothorax. The cardiac, hilar and mediastinal silhouettes are within normal limits. There is no vascular congestion. The visualized bony thorax is intact. There is continued thoracolumbar dextroscoliotic curvature. XR/XR chest 2V IMPRESSION: NO ACUTE CARDIOPULMONARY ABNORMALITY. Impression dictated by: Alyssa Irvin M.D. 05/06/2025 1:49 PM Dictation Location: [place] [address] Electronically authenticated by: [id number] Y Date: 05/06/2025 13:49
== END 2025-05-06 12:43 | disposition home or self-care (01) ==
LOC: PST 12:47
PROVIDERS: PCP Nurse Practitioner Family; Visit Provider Obstetrics & Gynecology
DX: Z01.810 Encounter for preprocedural cardiovascular examination (principal); N92.0 Excessive and frequent menstruation with regular cycle; N93.9 Abnormal uterine and vaginal bleeding, unspecified; R10.20 Pelvic and perineal pain unspecified side
CPT/HCPCS: 71046

== ENCOUNTER 2025-05-10 08:22 | Day surgery (SDC) | payer MEDICARE, MEDICAID, SELFPAY ==
[2025-05-06 13:19] VITALS: BP 110/74; PULSE 100; TEMP 36.5; O2SAT 100; BMI 38.2
--- OUTSIDE RECORDS SUMMARY | 2025-05-10 08:25 | XMS_ITS | Clinical Summary ---
Author Organization [facility] tem Address [facility] [id number] [address] [place] [address] Care Team Providers Care Proposal Lead Writer Name Role Phone April Julia Hastings APRN-RESEARCH DEVELOPMENT MANAGER Primary Care Provider Allergies No known active [...] InformationValueDate RecordedSex Assigned at BirthNot on fileLegal FlsXefwpo09/20/2023 12:13 AM ESTGender IdentityNot on fileSexual OrientationNot on file Last Filed Vital Signs Vital SignReadingTime TakenCommentsBlood Qknqeeup926/5804/11/2023 4:45 AM EST Hkglr977604/11/2023 4:45 AM DKXCgdlqluxwta90.8 ??C (98.3 ??F)04/11/2023 12:55 AM ESTRespiratory Aokq909106/11/2022 12:29 AM ESTOxygen Saturation--Inhaled Oxygen Concentration--Adbtrg14.2 kg (190 lb)09/05/2023 7:18 AM EDTHeight--Body Mass Index-- Plan of Treatment Health MaintenanceDue DateLast DoneCommentsDepression Vahmdpyac09/15/2010Tobacco Tmqrumagk21/15/2010dult BMI Crldadwkp69/15/2016Pap Smear2019Influenza Tpxmxbn51/01/400447/, 02/26/2014DTaP,Tdap and Td Vaccines (6 - Td or Tdap)3106/07/2022, 04/15/2013, 09/30/2010, Additional history exists Medical Devices Not on file Insurance * Guarantor: Carrie BernsteinAccount TypeRelation to PatientDate of BirthPhone Billing AddressPersonal/EqeswgRwlx2000 [address] [place] [address] Care Teams Team MemberRelationshipSpecialtyStart DateEnd Date Julia Chen APRN-RESEARCH DEVELOPMENT MANAGER [address] [place] [address] PCP - GeneralFamily Medicine08/22/23
--- OUTSIDE RECORDS SUMMARY | 2025-05-10 08:25 | XMS_ITS | Patient Health Record ---
Author Organization [facility] [place] Address [address] [place] [address] Care Team Providers Care Grocery Clerk Marking Name Role Phone Julia Chen Primary Care Provider Allergies No Known Allergies Results Component Value Reference Range Notes XR chest 2V Reviewed date:2025 03:26:16 PM Interpretation: Performing Lab: Notes/Report: Source Facility: [place] [address] XRay Report Signed Patient: LADI BERNSTEIN MR#: [id number] : 2000 Acct:[id number] Age/Sex: 25 / F ADM Date: 05/06/25 Loc: PST Attending Dr: Mary Belle D.O. Ordering Physician: Mary Belle D.O. Date of Service: 05/06/25 Procedure(s): XR chest 2V Accession Number(s): [id number] cc: JULIA CHEN ; Mary Belle D.O. [place] [id number] Patient Name: LADI BERNSTEIN MRN: [id number] date: 2000 Sex: F Assigned Patient Location: SURGOUT Current Patient Location: SURGOUT Accession/Order Number: [id number] Exam Date: 2025 13:20 Report Date: 2025 13:49 At the request of: MARY BELLE DO Procedure: XR chest 2V PA AND LATERAL CHEST: CLINICAL HISTORY: Preoperative clearance. Tobacco use. COMPARISON: 02/22/2024 There is no focal parenchymal consolidation, effusion or pneumothorax. The cardiac, hilar and mediastinal silhouettes are within normal limits. There is no vascular congestion. The visualized bony thorax is intact. There is continued thoracolumbar dextroscoliotic curvature. XR/XR chest 2V IMPRESSION: NO ACUTE CARDIOPULMONARY ABNORMALITY. Impression dictated by: Alyssa Irvin M.D. 2025 1:49 PM Dictation Location: [place] [address] Electronically authenticated by: [id number] Y Date: 2025 13:49 Dictated By: Alyssa Irvin M.D. Signed By: 05/06/25 1351 DD/ 1349 TD/TT: Offset Printing Pressmen: Reason For Referral No Information Medications Medication SIG (Take, Route, Frequency, Duration) Notes Start Date End Date Status Nortriptyline HCl 10 MG 1 capsule Orally BID ActiveOcrevus 300 MG/10ML1 injection every 6 months IntravenousActiveBaclofen 10 MG1 tablet as needed Orally TIDActiveVyvanse 20 MG1 capsule in the morning Orally Once a day; Duration: 30 days4ActivehydrOXYzine HCl 50 MG1 tablet as needed Orally Once a dayActiveLyrica 100 MG 1 capsule Orally Once a day Along with the 150mg ActiveLyrica 150 MG 1 capsule Orally BID Along with 100mg capsule ActiveDiflucan 100 MG1 tablet Orally daily; Duration: 10 days5Active Social History Tobacco Use: Social History Observation Description Date Details (start date - stop date) Former Smoker 05/23/2013 - 10/21/2022 Tobacco Use/Smoking Question Answer Notes Patient is a former smoker When did you start smoking?05/23/2013When did you stop smoking?10/21/2022How long has it been since you last smoked?6-12 monthsAdditional Findings: Tobacco Pvq-AqyjFq-iypxsuqs cigarette smoker (10-19/day)Alcohol Screen (Audit-C) Question Answer Notes Did you have a drink containing alcohol in the p ast year? Yes How often did you have 6 or more drinks on one occasion in the past year?Monthly or less (1 point)How many drinks did you have on a typical day when you were drinking in the past year?1 or 2 drinks (0 point)How often did you have a drink containing alcohol in the past year?Never (0 point)Ctynrn5LjzogmozaepbqoEcfuzixy AUDIT-C (Standard) Question Answer Notes Did you have a drink containing alcohol in the p ast year? 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)Active confirmedProblemSpinal stenosis in cervical region (89094659)Spinal stenosis, cervical region (M48.02)ActiveconfirmedProblemSciatica (94278727)Lumbago with sciatica, right side (M54.41)ActiveconfirmedProblemSciatica (29294232)Lumbago with sciatica, left side (M54.42)ActiveconfirmedProblemParesthesia (finding) (68542429)Paresthesia of skin (R20.2)ActiveconfirmedProblemAnxiety (75295900) Anxiety (F41.9)ActiveconfirmedProblemEndometriosis (088919834)Endometriosis (N80.9)ActiveconfirmedProblemCannabis abuse (95020868)Marijuana use (F12.10) ActiveconfirmedProblemAttention deficit hyperactivity disorder (212815985)ADHD (F90.9)Activeconfirmed Encounters Encounter Location Date Provider Diagnosis [facility] [address] [facility] [place] [address] 08/24/2024 Julia Chen Plan Of Treatment Pending Test Test Name Order Date CMP (COMPLETE METABOLIC PANEL) 3 IRON, TOTAL 09/13/2022 CBC WITH DIFF (EXP 03/2025) 09/13/2022 MRI Brain w/wo contrast * 10/04/2022 RHEUMATOID PANEL 10/04/2022 THYROID PANEL (T4/TSH/FREE T3) 3 Insurance Providers Payer Name Payer Address Payer Phone Subscriber Number Group Number Insured Name Patient Relationship to Insured Coverage Start Date Coverage End Date [employer] [place] [employer] [address] [place] [address] [id number] Ariella Bernsteinelf - patient is the insured Medical (General) History Medical History History ICD Code Anxiety F41.9 Marijuana use F12.10 Overweight E66.3 ADHD F90.9 Endometriosis N80.9 Surgical History Surgery Date(Month/Year) Tonsilectomy Ear TubesCESAREAN UHYHYVDO00/15/2023LaproscopyGallbladderHospitalization History Reason Date(Month/Year) MS Transverse MyelitisChild Birth03/20[birth year]
--- OUTSIDE RECORDS SUMMARY | 2025-05-10 08:25 | XMS_ITS | Clinical Summary ---
Author Organization [facility] Address [address] [place] [address] Phone Care Team Providers Care Germ Drier Name Role Phone Unavailable Primary Care Provider Unavailabl e Social History Tobacco UseTypesPacks/DayYears UsedDateSmoking Tobacco: Never Assessed CommentsUnknownSex and Gender InformationValueDate RecordedSex Assigned at Not on fileLegal BsyZhputw69/26/2022 5:40 AM ESTGender IdentityNot on fileSexual OrientationNot on file Plan of Treatment Health MaintenanceDue DateLast DoneCommentsHIV Drciszogs1998Lipid Panel 2000Yearly Adult Tetwkpca1998MMR Vaccines (1 of 1 - Standard series) 1999Hepatitis C Jkuhidtzm77/15/2016Hepatitis B Vaccines (1 of 3 - 19+ 3- dose series)2017Cervical Cancer Cvhjjfjbd03/15/2019HPV/Pcmndn7505/06/2019Pap Smear2019DTaP/Tdap/Td Vaccines (1 - Tdap)2020COVID-19 Vaccine (1 - season)2025Influenza Vaccine (#1)2025HPV Vaccines (1 - 3- dose standard series)2025Zoster Vaccines (1 of 2)2048HIB Vaccines Aged OutNo longer eligible based on patient's age to complete this topic Hepatitis A VaccinesAged OutNo longer eligible based on patient's age to complete this topicIPV VaccinesAged OutNo longer eligible based on patient's age to complete this topicMeningococcal VaccineAged OutNo longer eligible based on patient's age to complete this topicPneumococcal Vaccine: Pediatrics and At-Risk Adult PatientsAged OutNo longer eligible based on patient's age to complete this topicRotavirus VaccinesAged OutNo longer eligible based on patient's age to complete this topic Insurance * Guarantor: Carrie Bernstein TypeRelation to PatientDate of PhoneBilling AddressPersonal/NkwstvQfzv2000 [address] [place] [address]
--- OUTSIDE RECORDS SUMMARY | 2025-05-10 08:25 | XMS_ITS | Encounter Summary ---
Author Organization [facility] Address [address] [place] [address] Care Team Providers Care Aircraft Machinist Name Role Phone Eula Garcia DO Unavailable [phone] Dainel Landry MD Primary Care Provider [phone] Julia Chen MD Unavailable [phone] Encounter Details DateTypeDepartmentCare Team (Latest Contact Info)Zsrucsqvqnu38/15/2025linisync Result Encounter [facility] External Department Unsolicited Mary Belle DO [address] [address] Social History Tobacco UseTypesPacks/DayYears UsedDateSmoking Tobacco: FormerCigarettes 2016 - 01/01/2023Smokeless Tobacco: Never Comments:Was a pack a day sm oker quit October 2022 Alcohol UseStandard Drinks/WeekCommentsNot Currently0 (1 standard drink = 0.6 oz pure alcohol)Maybe once a monthCommentsNoSex and Gender InformationValue Date RecordedSex Assigned at BirthNot on fileLegal AbsYlguzq93/15/2023 10:02 PM EDTGender IdentityNot on fileSexual OrientationNot on filedocumented as of this encounter Plan of Treatment DateTypeDepartmentCare Team (Latest Contact Info)Jucppiniqwn59/29/2025 2:30 PM ESTOffice Visit [facility] [place]BL[place] [address] [address] Flora Quintanilla PA [address] [place] [address] [place] [address] documented as of this encounter Goals GoalPatient Goal TypeAssociated ProblemsRecent ProgressPatient-Stated?Author Reminders Care PlanOB RemindersNoOpen Scheduling, Backgrounddocumented as of this encounter Procedures Procedure NamePriorityDate/TimeAssociated DiagnosisCommentsXR CHEST 2V107/07/2024 1:49 PM EST documented in this encounter Results * XR CHEST 2V (2025 1:49 PM EST)Anatomical RegionLateralityModalityOther Specimen (Source)Anatomical Location / LateralityCollection Method / Volume Collection TimeReceived Time2025 1:49 PM EST Narrative 2025 1:51 PM EST [facility] ?[address] ? [place] [address] ?XRay Report ? Signed ? Patient: CARRIE BERNSTEIN Yi ?MR#: [id number] ?? : 2000 ?Acct:[id number] ?? Age/Sex: 25 / F ?ADM Date: 05/06/25 ?? Loc: PST ? Attending Dr: Mary Belle D.O. ? Ordering Physician: Mary Belle D.O. ?? Date of Service: 05/06/25 ?? Procedure(s): XR chest 2V ?? Accession Number(s): [id number] ? cc: JULIA CHEN ; Mary Belle D.O. ? [facility] ? [address] ? [place] [address] ? Patient Name: ?? CARRIE BERNSTEIN ? MRN: [facility]:[id number] ? date: 2000 ?Sex: F ?? Assigned Patient Location: SURGOUT ?? Current Patient Location: SURGOUT ?? Accession/Order Number: [id number] ?? Exam Date: 2025 ??13:20 ?Report Date: 2025 ??13:49 ? At the request of: ?? MARY ??YOSHI ??DO ? Procedure: ??XR chest 2V ? PA AND LATERAL CHEST: ? CLINICAL HISTORY: Preoperative clearance. ??Tobacco use. ? COMPARISON: 02/22/2024 ? There is no focal parenchymal consolidation, effusion or pneumothorax. ?? The ?? cardiac, hilar and mediastinal silhouettes are within normal limits. ?? There ?? is no vascular congestion. ?? The visualized bony thorax is intact. ?? There is ?? continued thoracolumbar dextroscoliotic curvature. ? XR/XR chest 2V ?? IMPRESSION: ? NO ACUTE CARDIOPULMONARY ABNORMALITY. ? Impression dictated by: Alyssa Irvin M.D. ??2025 1:49 PM ? Dictation Location: RADIO-PC-30 ? Electronically authenticated by: [id number] ??Y ?? Date: 2025 ??13:49 ? Dictated By: ?Alyssa Irvin M.D. ? Signed By: ?05/06/25 1351 ? DD/ 1349 ? TD/TT: ? Char Filter Tank Tender: Procedure Note Radiology, Radiologist, - [address] [place] [address] XRay Report Signed Patient: CARRIE BERNSTEIN NMR#: [id number] : 2000Acct:[id number] Age/Sex: 25 / FADM Date: 05/06/25 Loc: PST Attending Dr: Mary Belle D.O. Ordering Physician: Mary eBlle D.O. Date of Service: 05/06/25 Procedure(s): XR chest 2V Accession Number(s): [id number] cc: JULIA CHEN ; Mary Belle D.O. The [place] [id number] Patient Name: CARRIE BERNSTEIN MRN: [id number] date: 2000 Sex: F Assigned Patient Location: [facility] Current Patient Location: [facility] Accession/Order Number: [id number] Exam Date: 2025 13:20 Report Date: 2025 13:49 At the request of: MARY BELLE DO Procedure: XR chest 2V PA AND LATERAL CHEST: CLINICAL HISTORY: Preoperative clearance. Tobacco use. COMPARISON: 02/22/2024 There is no focal parenchymal consolidation, effusion or pneumothorax.The cardiac, hilar and mediastinal silhouettes are within normal limits.There is no vascular congestion. The visualized bony thorax is intact. Thereis continued thoracolumbar dextroscoliotic curvature. XR/XR chest 2V IMPRESSION: NO ACUTE CARDIOPULMONARY ABNORMALITY. Impression dictated by: Alyssa Irvin M.D. 2025 1:49 PM Dictation Location: [place] [address] Electronically authenticated by: [id number] Y Date: 3:49 Dictated By: Alyssa Irvin M.D. Signed By:05/06/25 1351 DD/ 1349 TD/TT: Char Filter Tank Tender: Authorizing ProviderResult TypeResult StatusCorey Yoshi DOCLINISYNC IMAGINGFinal Result documented in this encounter Visit Diagnoses Not on filedocumented in this encounter Additional Health Concerns Active ProblemsNoted DateDiagnosed DateOB Zfoihtqeq14/01/2023 documented as of this encounter Care Teams Team MemberRelationshipSpecialtyStart DateEnd Date Daniel Landry MD [address] [place] [phone] PCP - GeneralFamily Medicine08/24/23 Eula Garcia DO [address] [place] [address] Referring PhysicianNeurology08/24/23 Julia Chen MD [address] [place] [address] [phone] Referring PhysicianFamily Medicine08/24/23documented as of this encounter
--- OUTSIDE RECORDS SUMMARY | 2025-05-10 08:25 | XMS_ITS | Clinical Summary ---
Author Organization [facility] Address [address] [place] [address] Care Team Providers Care Mat Cutter Name Role Phone Unavailable Primary Care Provider Unavailabl e Allergies Active AllergyReactionsCriticalityNoted SfwpDkuixricUexglivDteqgmk14/04/2024 Medications MedicationSigDispense QuantityRefillsLast FilledStart DateEnd DateStatus VYVANSE [...] to line specific nursing protocol in the [facility] administration guidelines link. 1 each 5Active iv [...] to line specific nursing protocol in the [facility] administration guidelines link. 1 each 5Active pregablin (LYRICA) 200 mg capsule Indications:Multiple sclerosis,Neuropathic painTake 1 capsule by mouth two times a day for 180 days. 60 capsule ctive nortriptyline (PAMELOR) 10 mg capsule Indications:Neuropathic painTake 2 capsules by mouth two times a day. 120 capsule ctive gabapentin (NEURONTIN) 100 mg capsule Take 300 mg by mouth three times a day./iscontinued Active Problems ProblemNoted DateDiagnosed DateProgressive multiple mcfymdqbk93/07/2024Obesity, Class II, BMI 35-39.9009/23/20236602WLNP38/03/2024Neuropathic pain09/23/2023 Alteration in self-care rbsnfyx9409/23/2023Impaired bisyflpy70/03/2024t risk for falls09/23/2023Nicotine use disorder, F17.Transverse myelitis 09/20/2023Type 2 diabetes mellitus without juxsdnlhygp91/21/2016Vitreous floaters of both eyes09/11/2015 Resolved Problems ProblemNoted DateDiagnosed DateResolved DateVasovagal dkwjooe5209/23/2023 09/26/2023 Encounters DateTypeDepartmentCare AfcuLrcvazygsin32/04/2025 Patient [facility] [address] [address] Moriah Marcus, DIRECTOR MONEY.PRIVATE BRANCH EXCHANGE REPAIRER MRI vbyntr8503/23/2025 3:40 PM EDT - 03/23/2025 11:59 PM EDTHospital Encounter MRI Q [address] [address] Multiple sclerosis [G35.D] Discharge Disposition: Home03/23/20254258Euspza00/30/2025 [place] [address] Provider, [facility] MRI Screening Questionnaire Completion Requiredfrom Last 3 Months Family History Medical HistoryRelationCommentsDiabetesFatherGlaucomaFatherMultiple SclerosisNo Family HistoryRelationStatusCommentsFather Social History Tobacco UseTypesPacks/DayYears UsedDateSmoking Tobacco: FormerCigarettes0.52 12/05/2019 - 12/04/2021mokeless Tobacco: Never Tobacco Cessation:Counseling Given: Not Answered Alcohol UseStandard Drinks/WeekCommentsYes0 (1 standard drink = 0.6 oz pure alcohol)occassionallyAHC UtilitiesAnswerDate RecordedIn the past 12 months has the [employer], gas, oil, or water [employer] threatened to shut off services in your home?No10/02/2023Social Connection and Isolation PanelAnswerDate RecordedIn a typical week, how many times do you talk on the phone with family, friends, or neighbors?More than three times a week10/02/2023How often do you get together with friends or relatives?Once a week10/02/2023How often do you attend methodist or sikh services?Never10/02/2023o you belong to any clubs or organizations such as methodist groups, unions, fraternal or athletic groups, or school groups?No 10/02/2023How often do you attend meetings of the clubs or organizations you belong to?Never10/02/2023re you , , , , never , or living with a partner?Living with pazufjx3510/02/2023UDIT-CAnswerDate RecordedQ1: How often do you have a [...] medical care, and heating?Not very hard10/02/2023HQ-2AnswerDate RecordedPHQ-2 uzmok702Finmoab regional hospital [place] of Occupational Health - Occupational Stress QuestionnaireAnswerDate RecordedDo you feel stress - tense, restless, nervous, or anxious, or unable to sleep at night because yourmind is troubled all the time - these days?Only a wedpnf4110/02/2023Exercise Vital Sign AnswerDate RecordedOn average, how many [...] RecordedNational Score (1-100), lower number is lower tgxk327203/23/2025State Score (1-10), lower number is lower risk9 03/23/2025Data from: https://www.neighborhoodatlas.medicine.[facility].edu/. Last address used for [address]/23/2024CommentsNoSex and Gender InformationValueDate RecordedSex Assigned at BirthNot on fileLegal Sex Luxekf2108/07/2015 2:49 PM EDTGender IdentityNot on fileSexual OrientationNot on file Last Filed Vital Signs Vital SignReadingTime TakenCommentsBlood Xtzjjlrx149/6808 4:30 PM EDT Oxyvu02428 4:30 PM XQLDtfvebhqmky75 ??C (98.6 ??F)12/26/2024 4:30 PM EDT Respiratory Mhrd432109/27/2023 9:28 AM EDTOxygen Vultmpryta209%12/06/2023 12:15 PM EDTInhaled Oxygen Concentration--Syukre66.5 kg (208 lb 5.4 oz)10/24/2023 2:01 PM ZFAZysxgh606.6 cm (5' 4.02 )10/24/2023 2:01 PM EDTBody Mass Index35.74 10/24/2023 2:01 PM EDT Plan of Treatment DateTypeDepartmentCare Team (Latest Contact Info)Jiqrcyizvdk24/06/2026 8:00 AM ESTInfusion Center Multiple Sclerosis [address] [place] [address] Multiple Wnqdwqeim02/11/2026 2:45 PM ESTOffice Visit [place] [phone] Moriah Marcus, DIRECTOR MONEY.PRIVATE BRANCH EXCHANGE REPAIRER [address] [place] [phone] Follow upHealth MaintenanceDue DateLast DoneCommentsDiabetic Foot Exam2008 Urine Albumin:Creatinine Ratio2008nnual PCP Team Chronic Disease Visit 2016Anxiety Hrhfcrizh18/15/2016Depression Djkfoonxx58/15/2016LDL Tujgejvhhet58/15/2016Dilated Retinal Exam, 09/11/2015 Pneumococcal Vaccine (1 of 2 - PCV)2017Cervical Cancer Detjbqamu59/15/2019 KvW0V07/11/2022Medicare Annual Wellness Visit12/21/2024ovid-19 Vaccine ( season)2025Influenza Vaccine (#1)2025 03/12/2015, 02/26/2014DTaP,Tdap,Td Vaccine (6 - Td or Tdap)3106/07/2022, 04/15/2013, 09/30/2010, Additional history existsHPV VaccineCompleted 09/10/2014, 02/26/2014, 03/01/2012Hepatitis B FgsmnbbJqcsxwjgo44/14/2015, 01/28/2014, 12/23/2013, Additional history existsHIV ScreeningCompleted 09/20/2023Hepatitis C AiarmdiekIinbmxrar69/13/2024 Procedures Procedure NamePriorityDate/TimeAssociated DiagnosisCommentsMRI THORACIC SPINE WO/W QKYGVKuklkty58/01/2025 5:14 PM EDT Multiple sclerosis Encounter for long-term (current) use of medications MRI CERVICAL SPINE WO/W OKDLQTrjzxya85/01/2025 5:14 PM EDT Multiple sclerosis Encounter for long-term (current) use of medications MRI BRAIN WO/W SJXWBIzlcdqk41/01/2025 5:14 PM EDT Multiple sclerosis Encounter for long-term (current) use of medications BRAIN & CERVICAL SPINE MRI DISCRETE YNKZZfcpuil90/01/2025 5:13 PM EDT BRAIN & CERVICAL SPINE MRI DISCRETE XKEXSnwuijg84/01/2025 5:13 PM EDT HEPATITIS C ANTIBODY IA WITH JUGXZKAMQLWRSfyvhqp13/13/2024 4:04 PM EDT Other chronic pain HIV 1/2 COMBO WITH REFLEX TO OXSEYVQARHQUQRCXkoiubn82/30/2024 2:22 PM EDT from Last 3 Months [...] thoracic rib is at the T1 level. Port Patrol Officer: PSCB ?? Transcribe Date/Time: Mar ??2024 ??8:41P Dictated [...] and foramina are patent. Procedure Note Provider, [facility] [place] - 03/23/2025 * * *Final Report* * * DATE OF EXAM: Mar 23 2025 5:13PM Q 0326 - MRI THORACIC SPINE WO/W IVCON [...] thoracic rib is at the T1 level. Port Patrol Officer: STEPHEN Transcribe Date/Time: Mar 23 2025 8:41P Dictated by : GERARDO HUMMEL MD This examination was interpreted and the report reviewed and electronically signed by: GERARDO HUMMEL MD on Mar 23 2025 9:02PM EST Authorizing ProviderResult TypeResult StatusJennifer L Angeline DIRECTOR MONEY.CNPMRI-PAMA Final Result * MRI CERVICAL SPINE WO/W [...] vertebrae with counting from the craniocervical junction. Port Patrol Officer: PSCB ?? Transcribe Date/Time: Mar ??2024 ??8:40P Dictated [...] Improvement: ??None. New Enhancing Lesions: ??None T2 Dorris of Disease: ??Mild. Parenchymal Volume Loss: None. Other Significant Findings: ??None. MR CERVICAL: Counting reference: ??Craniocervical junction. ?? Anatomic Variants: ??None. Alignment: ?? Alignment is anatomic. Craniocervical Junction: ?Craniocervical junction is normal. Cord Findings: ??Central T2 hyperintense cord signal at the level of C3-C4 and at C5-C6 redemonstrated not significantly changed. Cord T2 Plaque Dorris: ??Mild New T2 Lesions: ??None Interval Cord [...] or equal to 2mm). Procedure Note Provider, [facility] - 03/23/2025 * * *Final Report* * * DATE OF EXAM: Mar 23 2025 5:13PM Q 0298 - MRI CERVICAL SPINE WO/W IVCON [...] Improvement: None. New Enhancing Lesions: None T2 Dorris of Disease: Mild. Parenchymal Volume Loss: None. Other Significant Findings: None. MR CERVICAL: Counting reference: Craniocervical junction. Anatomic Variants:None. Alignment: Alignment is anatomic. Craniocervical Junction: Craniocervical junction is normal. Cord Findings: Central T2 hyperintense cord signal at the level of C3-C4 and at C5-C6 redemonstrated not significantly changed. Cord T2 Plaque Dorris: Mild New T2 Lesions: None Interval Cord [...] vertebrae with counting from the craniocervical junction. Port Patrol Officer: PSCB Transcribe Date/Time: Mar 23 2025 8:40P Dictated by : GERARDO HUMMEL MD This examination was interpreted and the report reviewed and electronically signed by: GERARDO HUMMEL MD on Mar 23 2025 8:52PM EST Authorizing ProviderResult TypeResult StatusJenndaniel Marcus APRN.[facility]ITALA Final Result * MRI BRAIN WO/W IVCON [...] vertebrae with counting from the craniocervical junction. Port Patrol Officer: PSCB ?? Transcribe Date/Time: Mar ??2024 ??8:40P Dictated [...] Improvement: ??None. New Enhancing Lesions: ??None T2 Dorris of Disease: ??Mild. Parenchymal Volume Loss: None. Other Significant Findings: ??None. MR CERVICAL: Counting reference: ??Craniocervical junction. ?? Anatomic Variants: ??None. Alignment: ?? Alignment is anatomic. Craniocervical Junction: ?Craniocervical junction is normal. Cord Findings: ??Central T2 hyperintense cord signal at the level of C3-C4 and at C5-C6 redemonstrated not significantly changed. Cord T2 Plaque Dorris: ??Mild New T2 Lesions: ??None Interval Cord [...] or equal to 2mm). Procedure Note Provider, [facility] - 03/23/2025 * * *Final Report* * [...] Improvement: None. New Enhancing Lesions: None T2 Dorris of Disease: Mild. Parenchymal Volume Loss: None. Other Significant Findings: None. MR CERVICAL: Counting reference: Craniocervical junction. Anatomic Variants:None. Alignment: Alignment is anatomic. Craniocervical Junction: Craniocervical junction is normal. Cord Findings: Central T2 hyperintense cord signal at the level of C3-C4 and at C5-C6 redemonstrated not significantly changed. Cord T2 Plaque Dorris: Mild New T2 Lesions: None Interval Cord [...] vertebrae with counting from the craniocervical junction. Port Patrol Officer: PSCB Transcribe Date/Time: Mar 23 2025 8:40P Dictated by : GERARDO HUMMEL MD This examination was interpreted and the report reviewed and electronically signed by: GERARDO HUMMEL MD on Mar 23 2025 8:52PM EST Authorizing ProviderResult TypeResult StatusJenndaniel Marcus APRN.[facility] Final Result * BRAIN & CERVICAL SPINE MRI DISCRETE DATA (03/23/2025 5:13 PM EDT)Component ValueRef RangeTest MethodAnalysis TimePerformed AtPathologist Signature Cervical Spine T2 Dorris of DiseaseMildDIVISION OF RADIOLOGYCervical Spine New T2 LesionsNoneDIVISION OF RADIOLOGYCervical spine enhancing lesionsNone DIVISION OF RADIOLOGYBrain New T2 LesionsNone SiteDIVISION OF RADIOLOGYBrain Interval ImprovementNoneDIVISION OF RADIOLOGYBrain Enhancing LesionsNone DIVISION OF RADIOLOGYBrain T2 Dorris of DiseaseMildDIVISION OF RADIOLOGYBrain Parenchymal Volume LossNoneDIVISION OF RADIOLOGYBrain Other Significant MRI FindingsNone.DIVISION OF RADIOLOGYAnatomical RegionLateralityModalityMagnetic ResonanceSpecimen (Source)Anatomical Location / LateralityCollection Method / VolumeCollection TimeReceived Time03/23/2025 5:13 PM EDT Narrative Authorizing ProviderResult TypeResult StatusCcf ProviderMRIFinal Result * BRAIN & CERVICAL SPINE MRI DISCRETE DATA (03/23/2025 5:13 PM EDT)Component ValueRef RangeTest MethodAnalysis TimePerformed AtPathologist Signature Cervical Spine T2 Dorris of DiseaseMildDIVISION OF RADIOLOGYCervical Spine New T2 LesionsNoneDIVISION OF RADIOLOGYCervical spine enhancing lesionsNone DIVISION OF RADIOLOGYBrain New T2 LesionsNone SiteDIVISION OF RADIOLOGYBrain Interval ImprovementNoneDIVISION OF RADIOLOGYBrain Enhancing LesionsNone DIVISION OF RADIOLOGYBrain T2 Dorris of DiseaseMildDIVISION OF RADIOLOGYBrain Parenchymal Volume LossNoneDIVISION OF RADIOLOGYBrain Other Significant MRI FindingsNone.DIVISION OF RADIOLOGYAnatomical RegionLateralityModalityMagnetic ResonanceSpecimen (Source)Anatomical Location / LateralityCollection Method / VolumeCollection TimeReceived Time03/23/2025 5:13 PM EDT Narrative Authorizing ProviderResult TypeResult StatusCcf ProviderMRIFinal Result * HEPATITIS C ANTIBODY IA WITH CONFIRMATION (11/03/2023 4:04 PM EDT)Component ValueRef RangeTest MethodAnalysis TimePerformed AtPathologist SignatureHep C Antibody OJFmiiqlroWyjztlxs61/14/2024 11:45 AM EDTCPARKVIEW HEALTH LABComment:The result suggests no evidence of active infection with Hepatitis C virus. Should recent infectionbe suspected, repeat testing may be considered 4-6 weeks after this draw.Specimen (Source)Anatomical Location / LateralityCollection Method / VolumeCollection TimeReceived TimeBloodBLOOD SPECIMEN / UnknownVenipuncture / Jomiftl1911/03/2023 4:04 PM EDT11/03/2023 4:04 PM EDT Narrative Authorizing ProviderResult TypeResult StatusJustin Talia Vyas MDLABORATORY Final ResultPerforming OrganizationAddressCity/State/ZIP CodePhone Number [facility] [address] [place] [address], * HIV 1/2 COMBO WITH REFLEX TO DIFFERENTIATION (09/20/2023 2:22 PM EDT)Component ValueRef RangeTest MethodAnalysis TimePerformed AtPathologist SignatureHIV 12 Combo (Ag/Ab)KbqhnklonekWttoxeqylfa47/30/2024 7:20 PM EDTCPARKVIEW HEALTH LABHIV-1/2 AB (Confirmatory)09/20/2023 7:20 PM EDTOGUS VA MEDICAL [facility]ENTER LABComment:Test not indicated.HIV Hcxwzearycspik14/30/2024 7:20 PM [facility] LABComment: No evidence of HIV-1 or HIV-2 infection. Should recent infection be suspected, repeat testing may be considered 2-3 weeks after this draw. [place] Rev. Code 3701.243(E): This information has been [...] StatusBedanita Boothe MDLABORATORYFinal ResultPerforming OrganizationAddressCity/State/ZIP CodePhone Number [facility] [address] [address] [place] [phone], from Last 3 Months or Most Recently Relevant to Health Maintenance Insurance Advance Directives * Full Code (Latest Code Status on File) Date ActivatedDate InactivatedComments09/25/2023 3:17 AM09/27/2023 6:23 PMQuestion AnswerCommentsFull Code Order Discussed With:* Patient
--- OUTSIDE RECORDS SUMMARY | 2025-05-10 08:25 | XMS_ITS | Clinical Summary ---
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 Name Role Phone Eula Garcia DO Unavailable [phone] Daniel Landry MD Primary Care Provider [phone] Julia Chen MD Unavailable [phone] Allergies Active AllergyReactionsCriticalityNoted DateCommentsCoconut (Cocos Nucifera) Hwgirnc5401/25/2024oconut Flavoring Agent (Non-Screening)12/17/2022 Other Reaction(s): Unknown Medications [...] MG tablet PLEASE SEE ATTACHED FOR DETAILED TMDWGSYTYC25/03/2024ctive pregabalin (Lyrica) 100 MG capsule 09/23/2023ctive Active Problems ProblemNoted DateDiagnosed DateParesthesia of skin09/15/20232743Bayngdutis55/25/2024 Tension aoxhgzvt46/25/2024Vitamin D kljvuzwddr47/25/2024 Encounters DateTypeDepartmentCare TxywTqtxeprtumn72/15/2025linisync Result Encounter [facility] External Department Unsolicited Mary Belle DO 04/15/2025 2:30 PM ESTProcedure Visit [facility] [address] [place] [address] [place] [address] Mary Belle DO Pre-op examination; Menorrhagia with irregular cycle; Abnormal uterine bleeding; Pelvic pain in bovqjj4803/13/2025 1:50 PM EDTOffice Visit [facility] [address] [place] [address] [place] [address] Mary Belle DO Menorrhagia with irregular cycle; Cold sore1amboo flowsheet [facility] [address] [place] [address] [place] [address] Mary Belle DO 03/12/2025Travelfrom Last 3 Months Family [...] Date RecordedSex Assigned at BirthNot on fileLegal PplUkicnh69/15/2023 10:02 PM EDTGender IdentityNot on fileSexual OrientationNot on file Last Filed Vital Signs Vital SignReadingTime TakenCommentsBlood Ujpnnfdo262/7211 2:49 PM EST Sudry404009/15/2023 8:40 AM EDTTemperature--Respiratory Xwrj644409/15/2023 8:40 AM EDTOxygen Dmaczybori888%09/15/2023 8:40 AM EDTInhaled Oxygen Concentration-- Zqkdyi408 kg (222 lb)04/15/2025 2:49 PM SLXUsndcd519.6 cm (5' 4 )01/09/2024 1:49 PM EDTBody Mass Index38.11001/09/2024 1:49 PM EDT Plan of Treatment DateTypeDepartmentCare Team (Latest Contact Info)Mrurqimzome43/29/2025 2:30 PM ESTOffice Visit [facility] [address] [place] [address] Flora Quintanilla PA [address] [place] [address] Health MaintenanceDue DateLast DoneCommentsMedicare Annual Wellness (AWV) /OVID-19 Vaccine ( season)2025Influenza Vaccine (#1)/, 02/26/2014Pneumococcal Vaccine: Pediatrics (0 to 5 Years) and At-Risk Patients (6 to 64 Years)Aged OutNo longer eligible based on patient's age to complete this topic Goals GoalPatient Goal TypeAssociated ProblemsRecent ProgressPatient-Stated?Author Reminders Care PlanOB RemindersNoOpen Scheduling, Background Procedures Procedure NamePriorityDate/TimeAssociated DiagnosisCommentsXR CHEST 2V107/07/2024 1:49 PM EST POCT , QDNZPAqvprgy62/24/2025 3:19 PM EST Menorrhagia with irregular cycle ENDOMETRIAL ABKVSGTziyyvt57/24/2025 3:17 PM EST Menorrhagia with irregular cycle from Last 3 Months Results * XR CHEST 2V (2025 1:49 PM EST)Anatomical RegionLateralityModalityOther Specimen (Source)Anatomical Location / LateralityCollection Method / Volume Collection TimeReceived Time2025 1:49 PM EST Narrative 2025 1:51 PM EST [facility] ?[address] ? [place] [address] ?XRay Report ? Signed ? Patient: HANNA,CARRIE N ?MR#: [id number] ?? : 2000 ?Acct:[id number] ?? Age/Sex: 25 / F ?ADM Date: 12/15/25 ?? Loc: PST ? Attending Dr: Mary Belle D.O. ? Ordering Physician: Mary Belle D.O. ?? Date of Service: 05/06/25 ?? Procedure(s): XR chest 2V ?? Accession Number(s): [id number] ? cc: JULIA CHEN ; Mary Belle D.O. ? [facility] ? [address] ? [place] [address] ? Patient Name: ?? CARRIE BERNSTEIN ? MRN: [facility]:[id number] ? date: 2000 ?Sex: F ?? Assigned Patient Location: SURGOUT ?? Current Patient Location: SURGOUT ?? Accession/Order Number: [id number] ?? Exam Date: 2025 ??13:20 ?Report Date: [...] Dictation Location: RADIO-PC-30 ? Electronically authenticated by: [id number] ??Y ?? Date: 2025 ??13:49 ? Dictated By: ?Alyssa Irvin M.D. ? Signed By: ?05/06/25 1351 ? DD/ 1349 ? TD/TT: ? Rn Perinatal: Procedure Note Radiology, Radiologist, MD - 2025 [facility] [address] [place] [address] XRay Report Signed Patient: CARRIE BERNSTEIN NMR#: [id number] : 2000Acct:[id number] Age/Sex: 25 / FADM Date: 05/06/25 Loc: PST Attending Dr: Mary Belle D.O. Ordering Physician: Mary Belle D.O. Date of Service: 05/06/25 Procedure(s): XR chest 2V Accession Number(s): [id number] cc: JULIA CHEN ; Mary Belle D.O. The [address] [address] Patient Name: CARRIE BERNSTEIN MRN: [id number] date: 2000 Sex: F Assigned Patient Location: [facility] Current Patient Location: [facility] Accession/Order Number: [id number] Exam Date: 2025 13:20 Report Date: 2025 [...] Irvin M.D. 2025 1:49 PM Dictation Location: [place] [address] Electronically authenticated by: [id number] Y Date: 3:49 Dictated By: Alyssa Irvin M.D. Signed By:05/06/25 1351 DD/ 1349 TD/TT: Rn Perinatal: Authorizing ProviderResult TypeResult StatusCorey Yoshi DOCLINISYNC IMAGINGFinal Result * POCT , urine manually resulted (04/15/2025 3:19 PM EST)ComponentValue Ref RangeTest MethodAnalysis TimePerformed AtPathologist SignaturePreg Test, UrNegativeNegativeSpecimen (Source)Anatomical Location / LateralityCollection Method / VolumeCollection TimeReceived IwvjGfefl05/24/2025 3:19 PM EST Narrative Authorizing ProviderResult TypeResult StatusMary Belle DOPOINT OF CARE TEST ENTER/EDIT ORDERABLESFinal Result * Endometrial biopsy (04/15/2025 3:17 PM EST) Narrative Jeanna Goodwin - 04/15/2025 3:17 PM EST Jeanna Goodwin 04/17/2025 10:54 AM Endometrial biopsy Date/Time: 04/15/2025 3:17 PM Performed by: Mary Belle DO Authorized by: Mary Belle DO ?? Consent: ??Consent obtained: written [...] sent to pathology ?? Authorizing ProviderResult TypeResult StatusCoreeva Belle DOIN CLINIC/BEDSIDE ORDERABLESFinal Result from Last 3 Months Additional Health Concerns Active ProblemsNoted DateDiagnosed DateOB Ploxsrtwr88/01/2023 Insurance Care Teams Team MemberRelationshipSpecialtyStart Date Daniel Landry MD [address] [place] [phone] PCP - GeneralFamily Medicine08/24/23 Eula Garcia DO [address] [place], [place] [phone] Referring PhysicianNeurology08/24/23 Julia Chen MD [address] [place] [address] [phone] Referring PhysicianFamily Medicine08/24/23
[2025-05-10 08:30] LABS: Hematocrit 33.4 % (36.0-48.0); Hemoglobin 10.5 g/dL (12.0-16.0); Immature Granulocytes Abs Auto 0.02 10^3/uL (0.00-0.03); Immature Granulocytes Pct Auto 0.2 % (0.0-0.5); Lymphocytes Absolute Auto 2.0 10^3/uL (1.2-3.8); Mean Corpuscular HGB Conc 31.4 g/dL (29.9-35.2); Mean Corpuscular Hemoglobin 24.5 pg (26.7-34.0); Mean Corpuscular Volume 78.0 fL (81.0-99.0); Platelet Count 298 10^3/uL (150-450); Red Blood Count 4.28 10^6/uL (4.20-5.40); White Blood Count 8.2 10^3/uL (4.0-11.0)
[2025-05-10 08:32] VITALS: BP 125/73; PULSE 93; TEMP 36.6; O2SAT 99; BMI 38.0
--- NOTE | 2025-05-10 10:17 | PM.ONB ---
Brief Operative Note Date of procedure: 05/10/25 Pre-op diagnosis general: menorrhagia Post-op diagnosis: same as pre-op Procedure: NAME OF PROCEDURE: [ ] Isa endometrial ablation with hysteroscopy. PROCEDURE: The patient was taken back to the OR where she was prepped and draped in the normal sterile fashion after being placed in the dorsal lithotomy position, after being placed under general anesthesia without difficulty.? A weighted speculum was placed into the vagina. The anterior lip was grasped with a single tooth tenaculum. The patient was then sounded to approximated 8cm. The patient?s cervix was gently dilated using hegardilators. The hysteroscope was passed through the cervix into the uterus where both ostia were seen. No gross evidence of polyps, fibroids or malignancy. The cervical length was noted to be 4 cm. The total cavity length is 4cm.? The Isa ablation apparatus was set to approximately 4cm in length. This was placed through the cervix and into the uterus. After the seal was tested, at that time the total ablation of 120 seconds was performed with the Isa withoutdifficulty. All instruments were removed from the vagina. Excellent hemostasis noted.? Sponge and lap count correct times 2.? Patient taken to recovery in stable condition. Anesthesia: MAC Surgeon: Bennett Belle Estimated blood loss (mL): 5 Pathology: none sent Condition: stable Disposition: PACU
[2025-05-10 10:45] VITALS: BP 109/56; PULSE 71; TEMP 36.4; O2SAT 96
[2025-05-10 11:00] VITALS: BP 112/65; PULSE 66; O2SAT 96
[2025-05-10 11:15] VITALS: BP 133/94; PULSE 70; O2SAT 100
== END 2025-05-10 11:25 | disposition home or self-care (01) ==
LOC: SURGOUT 08:22
PROVIDERS: PCP Nurse Practitioner Family; Visit Provider Obstetrics & Gynecology
PROC: (CPT 952; principal; 2025-05-10 09:25)
DX: N92.1 Excessive and frequent menstruation with irregular cycle (principal); N93.9 Abnormal uterine and vaginal bleeding, unspecified; R10.20 Pelvic and perineal pain unspecified side; Z90.49 Acquired absence of other specified parts of digestive tract; F17.290 Nicotine dependence, other tobacco product, uncomplicated; K21.9 Gastro-esophageal reflux disease without esophagitis; F41.9 Anxiety disorder, unspecified; F32.A Depression, unspecified; F43.10 Post-traumatic stress disorder, unspecified
CPT/HCPCS: 58563; 36415; 84702; 85025; J1885; J2250; J2405; J2704; J3010

== ENCOUNTER 2025-05-12 14:50 | Emergency (ER) | payer MEDICARE, MEDICAID, SELFPAY ==
--- OUTSIDE RECORDS SUMMARY | 2020-07-21 02:46 | XMS_ITS | Continuity of Care Document ---
Author Organization [facility] Address [address] [place] [address] Phone Care Team Providers Care Machine Stamper Name Role Phone Adama WHCNP WHCNP, Josefa Unavailable Unavaila ble Allergies, Adverse Reactions, Alerts Substance Reaction Status Criticality No Known Allergies Active No Inform ation Medications Medication Instructions Dosage Effective Dates (start - stop) Status Comments Macrobid 100 mg capsule take 1 capsule by oral route every 12 hours with food 100 MG - Active Lexapro 20 mg tablet take 1 tablet by or al route every day 20 MG - Active naproxen 500 mg tablet,delayed release take 1 tablet by oral route 2 times every day with food 500 MG - Active Problems Condition Type Effective Dates (start - stop) Clini lula Status Comments No Known Problems Procedures Procedure Date URINALYSIS NONAUTO W/O SCOPE OFFICE/OUTPATIENT VISIT, EST URINE TEST PREV VISIT, EST, AGE 18-39 PREV VISIT, EST, AGE 18-39 URINE TEST OFFICE/OUTPATIENT VISIT, EST URINE TEST URINALYSIS NONAUTO W/O SCOPE URINE TEST URINE TEST URINE TEST URINALYSIS NONAUTO W/O SCOPE URINE TEST URINE TEST REMOVE DRUG IMPLANT DEVICE PREV VISIT, NEW, AGE 18-39 Advance Directives Directive Yes / No Effective Date File Name No Information Encounters Encounter Description Practice Location Reason(s) For Visit Diagnoses Date Provider Providers Copied on Encounter [facility], [address] [place], [place], [id number] , [place] tel: [phone] [facility] No Information Jul-0 1 [facility] Josefa. [address] [place], [place], [id number] , [place]. tel: [phone] OFFICE/OUTPA TIENT VISIT, EST [facility], [address] [place] [address], [id number] , [place] tel: [phone] [facility] urinary symptoms (chief complaint) Body mass index [BMI] 37.0-37.9, adultDysuria- STD liefstyle codeScreen for STD (sexually transmitted disease) 1 [facility] Josefa. [address] [place] [address], [id number] , [place]. tel: [phone] PREV VISIT, EST, AGE 18-39 [facility], [address] [place] [address], [id number] , [place] tel: [phone] [facility] annual exam (chief complaint) Body mass index (BMI) 34.0-34.9, adultEncntr for nascar driver exam (general) (routine) w/o abn findingsPregnancy test negativeScreen for STD (sexually transmitted disease)Pelvic pain in female- STD liefstyle code 9 [facility] Josefa. [address] [place] [address], [id number] , [place]. tel: [phone] OFFICE/OUTPA TIENT VISIT, EST [facility], [address] [place] [address], [id number] , [place] tel: [phone] [facility] a1c (chief complaint) Type 2 diabetes mellitus without complication, without long-term current use of insulinMiscarriage 9 [facility] Major. [address] [place], [place], [id number] , [place]. tel: [phone] [facility], [address] [place], [place], [id number] , [place] tel:+ [phone] [facility] est care/stoma ch issues (chief complaint) Body mass index (BMI) 34.0-34.9, adultNauseaType 2 diabetes mellitus without complication, without long-term current use of insulinHx of cholecystectomyEstabl ishing care with new doctor, encounter forAnnual physical exam 9 [facility] Major. [address] [place], [place], [id number] , [place]. tel: [phone] [facility], [address] [place] [address], [id number] , [place] tel: [phone] [facility] Nexplanon removal (chief complaint) Body mass index (BMI) 34.0-34.9, adultEncounter for surveillance of other contraceptives 9 [facility] Josefa. [address] [place] [address], [id number] , [place]. tel: [phone] PREV VISIT, NEW, AGE 18-39 [facility], [address] [place], [place], [id number] , [place] tel: [phone] [facility] annual exam (chief complaint) Encntr for nascar driver exam (general) (routine) w/o abn findingsChlamydial infectionIrregular periodsPregnancy test negative 9 [facility] Josefa. [address] [place] [address], [id number] , [place]. tel:+ [phone] Family History Family Member Type Diagnosis Age At Onset Father Problem (finding) Mental illness Sister Problem (finding) Alive and well Father Problem (finding) Diabetes mellitus Brother Problem (finding) Alive and well Sister Problem (finding) asthma Mother Problem Mental illness Father Problem (finding) Alive and well Mother Problem depression Brother Problem Mental illness Father Problem (finding) depression Brother Problem (finding) attention deficit hyper activity disorder Payers Payer name Insurance type Covered alliance party ID Rosalinda arambula(s) Medicaid [facility] [id number] Social History Type Description Quantity Date Captured Comments Alcohol Use Details Unknown Caffeine Use Details Unknown Tobacco Use Status Smoking Status No Information Sex Female Sexual Orientation Straight or heterosexual May Gender Identity Female Chief Complaint And Reason For Visit No Information Reason For Referral Reason For Referral No Information Plan Of Treatment Date Type Action Status Goal Lipid panel. Due on due Goal Foot exam. Due on due Goal Dental exam. Due on due Goal Hemoglobin A1C. Due on due Goal Urine microalbumin. Due on due Goal Dilated eye exam. Due on Jul due Goal Pneumococcal vaccine. Due on due Goal Hemoglobin A1C. Due on due Goal Dental exam. Due on due Goal Dilated eye exam. Due on Jun due Goal Pneumococcal vaccine. Due on due Goal Lipid panel. Due on due Goal Urine microalbumin. Due on due Goal Foot exam. Due on due Goal Dietary management education , guidance, and counseling completed Goal Dietary management education , guidance, and counseling completed Goal Tobacco cessation counseling completed Goal Tobacco cessation counseling completed Goal Dietary management education , guidance, and counseling completed Goal Tobacco cessation counseling completed Goal Dietary management education , guidance, and counseling completed Goal Tobacco cessation counseling completed Goal Tobacco cessation counseling completed Referral Ordered: US EXAM, PELVIC, COMPLETE Appointment date/timeframe: 11/09/2018 ordered History Of Present Illness Encounter Date Complaint History Of Yazmin greene Illness urinary symptoms Reports some mi ld dysuria around time of menses. Would like screening for STDs today. annual exam Currently pregna nt: no. : 1. Parity: : 1. Patient is not contemplating . The patient states she uses none for control. Last LMP was 10/28/2018. Her menses is regular with normal flow with a frequency of every 28 days. Negative for dysmenorrhea and menorrhagia. Negative for: breast discharge, breast lump(s), breast pain and breast self exam.Negative for Hormone replacement therapy. The patient does use tobacco. Tobacco cessation has been discussed. She does not drink alcohol. Additional information: Patient is here for annual exam. States she is trying for and had 3-4 positive home tests and then started having positive bleeding and went to ER for miscarriage. Is here to follow up miscarriage and c./o lower left abdominal discomfort for the last week.. a1c Pt is here for a 1c. Last reading July 2018 6.2. Pt just suffered a miscarriage on Tuesday so her and her partner are very sad today. I set her up with Josefa for this Tuesday. NDiltsCMANoted above. Patient reports miscarriage on tuesday, she thought she was likely 5-6 weeks . Appt scheduled with Carol Ann Galan for tuesday. Patient reports bleeding stopped yesterday. She is reporting LLQ pain radiating to lower back. HAs tried ibuprofen with some relief. JHackerFARHAN est care/stomach issues Pt here today to establish are. pt states for the past 4-5 days she has had a very poor appetite. She states she usually has a very good appetite. She states she has been cramping in lower stomach and towards the top. Pt states she has low back pain as well. pt states she has been very nauseous and tired. Pt has no burning with urination. Pt states she has not tried anything OTC for this. pt states she also has been having headaches. She stated those started when her stomach issues started, pt states they come and go. Pt does not do anything specific to resolve it.Pt states she is a current every day Marijuana smoker, smoking about 3/4 times a day. Pt also wants test with urine sample. Mayur BRITT Nexplanon removal annual exam Currently pregna nt: no. The patient states she uses Nexplanon for control. Last LMP was 05/04/2018. The patient does use tobacco. Tobacco cessation has been discussed. She does drink alcohol. Additional information: patient is here for annual exam. States she has the nexplanon and was to have it removed 1 1/2 years ago. States she has had the Nexplanon since age 14yr. Used to not have a menses and now has BTB often. States she has been bleeding daily since May 04. Changing a tampon every hour often. Currently today bleeding has slowed down. Was Dx with chlamydia 05/18/18 was given a Rx for zithromax but has not picked it up. Would like to be treated today. Is willing to go on OCPs until Nexplanon is removed then plans to come off BC and desires a in the near future.. Functional Status Date Functional Assessmen t No Information Instructions Date Instruction Additional Infor sindhu Urine culture sent t o lab. Patient to call in 1 week for resultPatient's last Hgb A1c was 6.1. recommend follow up with PCP for evaluation to restart medication. Patient states understanding and will call to schedule follow up appt. Related to Dysuria Cervical cultures se nt to lab. Patient to call in 1 week for results Related to Screen for STD (sexually transmitted disease) Dietary management e ducation, guidance, and counseling Related to Body mass index [BMI] 37.0-37.9, adult Giving encouragement to exercise Related to Body mass index [BMI] 37.0-37.9, adult Discussed possible o varian cyst. Will order sonogram for further evaluation. Received ER report and her quant HCG level was 0.6. Informed patient that Im not sure she was and could have had a false positive home test. Recommend Motrin 800mg PRN discomfort . Did not recommend suppression of ovulation at this time due to desire for . Patient states understanding. Related to Pelvic pain in female Cervical cultures se nt to lab. Patient to call in 1 week for results Related to Screen for STD (sexually transmitted disease) Encouraged monthly B SE. Recommend calcium 1000mg QD. Encouraged good dietary intake and exercise. Laboratory specimens sent to lab. 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 Dietary management e ducation, guidance, and counseling Related to Body mass index (BMI) 34.0-34.9, adult Giving encouragement to exercise Related to Body mass index (BMI) 34.0-34.9, adult Dietary management e ducation, guidance, and counseling Related to Body mass index (BMI) 34.0-34.9, adult Giving encouragement to exercise Related to Body mass index (BMI) 34.0-34.9, adult Dietary management e ducation, guidance, and counseling Related to Body mass index (BMI) 34.0-34.9, adult Giving encouragement to exercise Related to Body mass index (BMI) 34.0-34.9, adult Discussed irregular menses in detail Will use OCPS to regulate menses until Nexplanon is removed. Then at that time she desires a . test negative today. Encouraged to start Sprintec today. Take 1 pill po QD at HS. If misses a pill take it as soon as she remembers and if she misses two pills take two pills one day and two pills the next day. Encouraged condoms for back up BC and to prevent STDs. Related to Irregular periods Zithromax 1gm given from stock supply today Related to Chlamydial infection Encouraged monthly B SE. Recommend calcium 1000mg QD. Encouraged good dietary intake and exercise. RTC 2 months for KIMBERLY. Discussed positive chlamydia and need for partner to be treated. Appt made with MILAD for boyfriend. 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
[2025-05-12 14:57] VITALS: BP 148/78; PULSE 108; TEMP 37.4; O2SAT 100; BMI 37.8
[2025-05-12] MEDS: FLUORESCEIN SODIUM 1 MG STRIP OP (15:12)
--- OUTSIDE RECORDS SUMMARY | 2025-05-12 15:14 | XMS_ITS | Clinical Summary ---
Author Organization [facility] Address [address] [place] [address] Care Team Providers Care Wood Handler Name Role Phone Unavailable Primary Care Provider Unavailabl e Allergies Active AllergyReactionsCriticalityNoted QwjuDgnwlwpkRivgzjsNcbbnkj02/04/2024 Medications MedicationSigDispense QuantityRefillsLast FilledStart DateEnd DateStatus VYVANSE [...] to line specific nursing protocol in the [facility] administration guidelines link. 1 each 5Active iv [...] to line specific nursing protocol in the [facility] administration guidelines link. 1 each 5Active pregablin [...] day./iscontinued Active Problems ProblemNoted DateDiagnosed DateProgressive multiple uwjncuucn72/07/2024Obesity, Class II, BMI 35-39.9009/23/20235779YUBO32/03/2024Neuropathic pain09/23/2023 Alteration in self-care nesqczx1609/23/2023Impaired fdzglgli73/03/2024t risk for falls09/23/2023Nicotine use disorder, F17.Transverse myelitis 09/20/2023Type 2 diabetes mellitus without rdnwvscubzs78/21/2016Vitreous floaters of both eyes09/11/2015 Resolved Problems ProblemNoted DateDiagnosed DateResolved DateVasovagal msanohx2109/23/2023 09/26/2023 Encounters DateTypeDepartmentCare JelaSstckpmbzsu30/04/2025 Patient [facility] [place] [address] [address] Moriah Marcus, MEAT CUTTER APPRENTICE.SCALEMAN MRI kthlfr7803/23/2025 3:40 PM EDT - 03/23/2025 11:59 PM EDTHospital Encounter MRI [place] [address] [address] Multiple sclerosis [G35.D] Discharge Disposition: Home03/23/20255370Rzjcsd51/30/[address] [place] [address] Provider, [facility] Screening Questionnaire Completion Requiredfrom Last 3 Months Family History Medical HistoryRelationCommentsDiabetesFatherGlaucomaFatherMultiple SclerosisNo Family HistoryRelationStatusCommentsFather Social History Tobacco UseTypesPacks/DayYears UsedDateSmoking Tobacco: FormerCigarettes0.52 12/05/2019 - 12/04/2021mokeless Tobacco: Never Tobacco Cessation:Counseling Given: Not Answered Alcohol UseStandard Drinks/WeekCommentsYes0 (1 standard drink = 0.6 oz pure alcohol)occassionallyAHC UtilitiesAnswerDate RecordedIn the past 12 months has the [employer], gas, oil, or water [employer] threatened to shut off services in your home?No10/02/2023Social Connection and Isolation PanelAnswerDate RecordedIn a typical week, how many times do you talk on the phone with family, friends, or neighbors?More than three times a week10/02/2023How often do you get together with friends or relatives?Once a week10/02/2023How often do you attend worship or yarsani services?Never10/02/2023o you belong to any clubs or organizations such as worship groups, unions, fraternal or athletic groups, or school groups?No 10/02/2023How often do you attend meetings of the clubs or organizations you belong to?Never10/02/2023re you , , , , never , or living with a partner?Living with gqyzvqa3510/02/2023UDIT-CAnswerDate RecordedQ1: How often do you have a [...] medical care, and heating?Not very hard10/02/2023HQ-2AnswerDate RecordedPHQ-2 lfxvq187[facility] - Occupational Stress QuestionnaireAnswerDate RecordedDo you feel stress - tense, restless, nervous, or anxious, or unable to sleep at night because yourmind is troubled all the time - these days?Only a emiwyz6710/02/2023Exercise Vital Sign AnswerDate RecordedOn average, how many [...] RecordedNational Score (1-100), lower number is lower jubb629603/23/2025State Score (1-10), lower number is lower risk9 03/23/2025Data from: https://www.neighborhoodatlas.medicine.[facility].edu/. Last address used for wkfuknevhke[address]/23/2024CommentsNoSex and Gender InformationValueDate RecordedSex Assigned at BirthNot on fileLegal Sex Fwfyey1908/07/2015 2:49 PM EDTGender IdentityNot on fileSexual OrientationNot on file Last Filed Vital Signs Vital SignReadingTime TakenCommentsBlood Wmbrsrgw623/6808 4:30 PM EDT Oppmn86949 4:30 PM WNHSydxczyfxbt91 ??C (98.6 ??F)12/26/2024 4:30 PM EDT Respiratory Ntuf817309/27/2023 9:28 AM EDTOxygen Jjigjfzyxn058%12/06/2023 12:15 PM EDTInhaled Oxygen Concentration--Ipnrgc34.5 kg (208 lb 5.4 oz)10/24/2023 2:01 PM XHIJqyykp925.6 cm (5' 4.02 )10/24/2023 2:01 PM EDTBody Mass Index35.74 10/24/2023 2:01 PM EDT Plan of Treatment DateTypeDepartmentCare Team (Latest Contact Info)Gdpghqgstug44/06/2026 8:00 AM ESTInfusion Center Multiple Sclerosis [address] [place] [address] Multiple Bepytaxxm56/11/2026 2:45 PM ESTOffice Visit [place] [phone] Moriah Marcus, MEAT CUTTER APPRENTICE.SCALEMAN [address] [place] [phone] Follow upHealth MaintenanceDue DateLast DoneCommentsDiabetic Foot Exam2008 Urine Albumin:Creatinine Ratio2008nnual PCP Team Chronic Disease Visit 2016Anxiety Gaqrnnldo86/15/2016Depression Aeqhomagw92/15/2016LDL Kfcjngcjmcz10/15/2016Dilated Retinal Exam, 09/11/2015 Pneumococcal Vaccine (1 of 2 - PCV)2017Cervical Cancer Ixiazjnvm30/15/2019 JlT5L37/11/2022Medicare Annual Wellness Visit12/21/2024ovid-19 Vaccine ( season)2025Influenza Vaccine (#1)2025 03/12/2015, 02/26/2014DTaP,Tdap,Td Vaccine (6 - Td or Tdap)3106/07/2022, 04/15/2013, 09/30/2010, Additional history existsHPV VaccineCompleted 09/10/2014, 02/26/2014, 03/01/2012Hepatitis B ZpihhehLjcufezqx91/14/2015, 01/28/2014, 12/23/2013, Additional history existsHIV ScreeningCompleted 09/20/2023Hepatitis C OobprslxuVuoqyjzbc82/13/2024 Procedures Procedure NamePriorityDate/TimeAssociated DiagnosisCommentsMRI THORACIC SPINE WO/W IKLWOFzmgnbk36/01/2025 5:14 PM EDT Multiple sclerosis Encounter for long-term (current) use of medications MRI CERVICAL SPINE WO/W BJTQZJpfmvxr72/01/2025 5:14 PM EDT Multiple sclerosis Encounter for long-term (current) use of medications MRI BRAIN WO/W VYXNKYlvzach21/01/2025 5:14 PM EDT Multiple sclerosis Encounter for long-term (current) use of medications BRAIN & CERVICAL SPINE MRI DISCRETE TQFDBjpvuso82/01/2025 5:13 PM EDT BRAIN & CERVICAL SPINE MRI DISCRETE RSRPZpcakvv79/01/2025 5:13 PM EDT HEPATITIS C ANTIBODY IA WITH TXGAADSQCQCVRijdtbc55/13/2024 4:04 PM EDT Other chronic pain HIV 1/2 COMBO WITH REFLEX TO SDRRKQTSRLDBZOBBtkpagb20/30/2024 2:22 PM EDT from Last 3 Months [...] thoracic rib is at the T1 level. Grain Operator: PSCB ?? Transcribe Date/Time: Mar ??2024 ??8:41P [...] are patent. Procedure Note Provider, [facility] - 03/23/2025 * * *Final Report* * [...] thoracic rib is at the T1 level. Grain Operator: STEPHEN Transcribe Date/Time: Mar 23 2025 8:41P Dictated by : GERARDO HUMMEL MD This examination was interpreted and the report reviewed and electronically signed by: GERARDO HUMMEL MD on Mar 23 2025 9:02PM EST Authorizing ProviderResult TypeResult StatusJennifer L Angeline MEAT CUTTER APPRENTICE.CNPMRI-PAMA Final Result * MRI CERVICAL SPINE WO/W [...] vertebrae with counting from the craniocervical junction. Grain Operator: PSCB ?? Transcribe Date/Time: Mar ??2024 ??8:40P [...] Improvement: ??None. New Enhancing Lesions: ??None T2 [place] of Disease: ??Mild. Parenchymal Volume Loss: None. Other Significant Findings: ??None. MR CERVICAL: Counting reference: ??Craniocervical junction. ?? Anatomic Variants: ??None. Alignment: ?? Alignment is anatomic. Craniocervical Junction: ?Craniocervical junction is normal. Cord Findings: ??Central T2 hyperintense cord signal at the level of C3-C4 and at C5-C6 redemonstrated not significantly changed. Cord T2 Plaque [place]: ??Mild New T2 Lesions: ??None Interval Cord [...] equal to 2mm). Procedure Note Provider, [facility] - 03/23/2025 * * *Final Report* * [...] Improvement: None. New Enhancing Lesions: None T2 [place] of Disease: Mild. Parenchymal Volume Loss: None. Other Significant Findings: None. MR CERVICAL: Counting reference: Craniocervical junction. Anatomic Variants:None. Alignment: Alignment is anatomic. Craniocervical Junction: Craniocervical junction is normal. Cord Findings: Central T2 hyperintense cord signal at the level of C3-C4 and at C5-C6 redemonstrated not significantly changed. Cord T2 Plaque [place]: Mild New T2 Lesions: None Interval Cord [...] vertebrae with counting from the craniocervical junction. Grain Operator: PSCB Transcribe Date/Time: Mar 23 2025 8:40P Dictated by : GERARDO HUMMEL MD This examination was interpreted and the report reviewed and electronically signed by: GERARDO HUMMEL MD on Mar 23 2025 8:52PM EST Authorizing ProviderResult TypeResult StatusJenndaniel Marcus APRN.[facility] Final Result * MRI BRAIN WO/W IVCON [...] vertebrae with counting from the craniocervical junction. Grain Operator: PSCB ?? Transcribe Date/Time: Mar ??2024 ??8:40P [...] Improvement: ??None. New Enhancing Lesions: ??None T2 [place] of Disease: ??Mild. Parenchymal Volume Loss: None. Other Significant Findings: ??None. MR CERVICAL: Counting reference: ??Craniocervical junction. ?? Anatomic Variants: ??None. Alignment: ?? Alignment is anatomic. Craniocervical Junction: ?Craniocervical junction is normal. Cord Findings: ??Central T2 hyperintense cord signal at the level of C3-C4 and at C5-C6 redemonstrated not significantly changed. Cord T2 [place]aque [place]: ??Mild New T2 Lesions: ??None Interval Cord [...] equal to 2mm). Procedure Note Provider, [facility] - 03/23/2025 * * *Final Report* * [...] Improvement: None. New Enhancing Lesions: None T2 [place] of Disease: Mild. Parenchymal Volume Loss: None. Other Significant Findings: None. MR CERVICAL: Counting reference: Craniocervical junction. Anatomic Variants:None. Alignment: Alignment is anatomic. Craniocervical Junction: Craniocervical junction is normal. Cord Findings: Central T2 hyperintense cord signal at the level of C3-C4 and at C5-C6 redemonstrated not significantly changed. Cord T2 Plaque [place]: Mild New T2 Lesions: None Interval Cord [...] vertebrae with counting from the craniocervical junction. Grain Operator: PSCB Transcribe Date/Time: Mar 23 2025 8:40P Dictated by : GERARDO HUMMEL MD This examination was interpreted and the report reviewed and electronically signed by: GERARDO HUMMEL MD on Mar 23 2025 8:52PM EST Authorizing ProviderResult TypeResult StatusJenndaniel Marcus APRN.[facility] Final Result * BRAIN & CERVICAL SPINE MRI DISCRETE DATA (03/23/2025 5:13 PM EDT)Component ValueRef RangeTest MethodAnalysis TimePerformed AtPathologist Signature Cervical Spine T2 [place] of DiseaseMildDIVISION OF RADIOLOGYCervical Spine New T2 LesionsNoneDIVISION OF RADIOLOGYCervical spine enhancing lesionsNone DIVISION OF RADIOLOGYBrain New T2 LesionsNone SiteDIVISION OF RADIOLOGYBrain Interval ImprovementNoneDIVISION OF RADIOLOGYBrain Enhancing LesionsNone DIVISION OF RADIOLOGYBrain T2 [place] of DiseaseMildDIVISION OF RADIOLOGYBrain Parenchymal Volume LossNoneDIVISION OF RADIOLOGYBrain Other Significant MRI FindingsNone.DIVISION OF RADIOLOGYAnatomical RegionLateralityModalityMagnetic ResonanceSpecimen (Source)Anatomical Location / LateralityCollection Method / VolumeCollection TimeReceived Time03/23/2025 5:13 PM EDT Narrative Authorizing ProviderResult TypeResult StatusCcf ProviderMRIFinal Result * BRAIN & CERVICAL SPINE MRI DISCRETE DATA (03/23/2025 5:13 PM EDT)Component ValueRef RangeTest MethodAnalysis TimePerformed AtPathologist Signature Cervical Spine T2 [place] of DiseaseMildDIVISION OF RADIOLOGYCervical Spine New T2 LesionsNoneDIVISION OF RADIOLOGYCervical spine enhancing lesionsNone DIVISION OF RADIOLOGYBrain New T2 LesionsNone SiteDIVISION OF RADIOLOGYBrain Interval ImprovementNoneDIVISION OF RADIOLOGYBrain Enhancing LesionsNone DIVISION OF RADIOLOGYBrain T2 [place] of DiseaseMildDIVISION OF RADIOLOGYBrain Parenchymal Volume LossNoneDIVISION OF RADIOLOGYBrain Other Significant MRI FindingsNone.DIVISION OF RADIOLOGYAnatomical RegionLateralityModalityMagnetic ResonanceSpecimen (Source)Anatomical Location / LateralityCollection Method / VolumeCollection TimeReceived Time03/23/2025 5:13 PM EDT Narrative Authorizing ProviderResult TypeResult StatusCcf ProviderMRIFinal Result * HEPATITIS C ANTIBODY IA WITH CONFIRMATION (11/03/2023 4:04 PM EDT)Component ValueRef RangeTest MethodAnalysis TimePerformed AtPathologist SignatureHep C Antibody IKTwftbtfwRwqxnyvx89/14/2024 11:45 AM EDTCBARNEY CHILDREN'S MEDICAL [facility] LABComment:The result suggests no evidence of active infection with Hepatitis C virus. Should recent infectionbe suspected, repeat testing may be considered 4-6 weeks after this draw.Specimen (Source)Anatomical Location / LateralityCollection Method / VolumeCollection TimeReceived TimeBloodBLOOD SPECIMEN / UnknownVenipuncture / Kbjpchv5511/03/2023 4:04 PM EDT11/03/2023 4:04 PM EDT Narrative Authorizing ProviderResult TypeResult StatusJustin Talia Vyas MDLABORATORY Final ResultPerforming OrganizationAddressCity/State/ZIP CodePhone Number [facility] [address] [place] [address], * HIV 1/2 COMBO WITH REFLEX TO DIFFERENTIATION (09/20/2023 2:22 PM EDT)Component ValueRef RangeTest MethodAnalysis TimePerformed AtPathologist SignatureHIV 12 Combo (Ag/Ab)SpecjqgsndqUlxivbfmufq54/30/2024 7:20 PM EDTCBARNEY CHILDREN'S MEDICAL CENTER LABHIV-1/2 AB (Confirmatory)09/20/2023 7:20 PM EDMEM[facility] LABComment:Test not indicated.HIV Pjveohepbstuhl41/30/2024 7:20 PM [facility] LABComment: No evidence of HIV-1 or HIV-2 infection. Should recent infection be suspected, repeat testing may be considered 2-3 weeks after this draw. [place] Rev. Code 3701.243(E): This information has been [...] StatusBedanita Boothe MDLABORATORYFinal ResultPerforming OrganizationAddressCity/State/ZIP CodePhone Number [facility] [address] [facility] [address] [place] [phone], from Last 3 Months or Most Recently Relevant to Health Maintenance Insurance Advance Directives * Full Code (Latest Code Status on File) Date ActivatedDate InactivatedComments09/25/2023 3:17 AM09/27/2023 6:23 PMQuestion AnswerCommentsFull Code Order Discussed With:* Patient
--- OUTSIDE RECORDS SUMMARY | 2025-05-12 15:14 | XMS_ITS | Clinical Summary ---
Author Organization [employer] [facility] tem Address [id number] [address] [place] [address] Care Team Providers Care Letter Of Credit Document Examiner Name Role Phone April Julia Hastings APRN-SUPERVISOR DATA PROCESSING Primary Care Provider Allergies No known active [...] InformationValueDate RecordedSex Assigned at BirthNot on fileLegal WsvDgdhcr54/20/2023 12:13 AM ESTGender IdentityNot on fileSexual OrientationNot on file Last Filed Vital Signs Vital SignReadingTime TakenCommentsBlood Cqiadxoj939/5804/11/2023 4:45 AM EST Vqbqi759704/11/2023 4:45 AM QTWGidueidpteh68.8 ??C (98.3 ??F)04/11/2023 12:55 AM ESTRespiratory Jegc566706/11/2022 12:29 AM ESTOxygen Saturation--Inhaled Oxygen Concentration--Hwnmun71.2 kg (190 lb)09/05/2023 7:18 AM EDTHeight--Body Mass Index-- Plan of Treatment Health MaintenanceDue DateLast DoneCommentsDepression Cebnbztij41/15/2010Tobacco Mmwdstnqs83/15/2010dult BMI Cywuwlyjs10/15/2016Pap Smear2019Influenza Fmsxhuf90/01/802183/, 02/26/2014DTaP,Tdap and Td Vaccines (6 - Td or Tdap)3106/07/2022, 04/15/2013, 09/30/2010, Additional history exists Medical Devices Not on file Insurance * Guarantor: Carrie BernsteinAccount TypeRelation to PatientDate of BirthPhone Billing AddressPersonal/CimzubPlwi2000 [address] [place] [address] Care Teams Team MemberRelationshipSpecialtyStart DateEnd Date Julia Chen APRN-SUPERVISOR DATA PROCESSING [address] [place] [address] PCP - GeneralFamily Medicine08/22/23
--- OUTSIDE RECORDS SUMMARY | 2025-05-12 15:15 | XMS_ITS | Encounter Summary ---
Author Organization [facility] Address [address] [place] [address] Care Team Providers Care Weight Checker Name Role Phone Eula Garcia DO Unavailable [phone] Daniel Landry MD Primary Care Provider [phone] Julia Chen MD Unavailable [phone] Encounter Details DateTypeDepartmentCare Team (Latest Contact Info)Igmmqwzcqks35/19/2025linisync Result Encounter [facility] External Department Unsolicited Bennett Belle DO [address] [facility] [place] [address] Social History Tobacco UseTypesPacks/DayYears UsedDateSmoking Tobacco: FormerCigarettes 2016 - 01/01/2023Smokeless Tobacco: Never Comments:Was a pack a day sm oker quit October 2022 Alcohol UseStandard Drinks/WeekCommentsNot Currently0 (1 standard drink = 0.6 oz pure alcohol)Maybe once a monthCommentsNoSex and Gender InformationValue Date RecordedSex Assigned at BirthNot on fileLegal SjeFoabpr41/15/2023 10:02 PM EDTGender IdentityNot on fileSexual OrientationNot on filedocumented as of this encounter Plan of Treatment DateTypeDepartmentCare Team (Latest Contact Info)Pivkzttyski62/29/2025 2:30 PM ESTOffice Visit [facility] Maria Luisa OBLILY [address] [facility] [place] [address] Flora Quintanilla PA [address] [place] [address] [place] [address] documented as of this encounter Goals GoalPatient Goal TypeAssociated ProblemsRecent ProgressPatient-Stated?Author Reminders Care PlanOB RemindersNoOpen Scheduling, Backgrounddocumented as of this encounter Procedures Procedure NamePriorityDate/TimeAssociated DiagnosisCommentsTBH PREG QUANT HCG Mdsleun4705/10/2025 8:27 AM EST ALL CBC WITH AUTO ZZTIGbdiixj40/19/2025 8:27 AM EST documented in this encounter Results * TBH PREG QUANT HCG (05/10/2025 8:27 AM EST)ComponentValueRef RangeTest Method Analysis TimePerformed AtPathologist SignatureHCG QUANTITATIVE<1mIU/mLTBH Comment: 5-50 ? 0.2-1 WEEK 50-500 ? 1-2 WEEKS 100-5,000 ?2-3 WEEKS 500-10,000 ? 3-4 WEEKS 1,000-50,000 ?? 4-5 WEEKS 10,000-100,000 5-6 WEEKS 15,000-200,000 6-8 WEEKS 10,000-100,000 2-3 MONTHS Specimen (Source)Anatomical Location / LateralityCollection Method / Volume Collection TimeReceived Time05/10/2025 8:27 AM EST05/10/2025 8:27 AM EST Narrative [facility] - 05/10/2025 8:50 AM EST Authorizing ProviderResult TypeResult StatusCorey Yoshi DOCLINISYNCFinal Result Performing OrganizationAddressCity/State/ZIP CodePhone Number CLINISYNC [facility] * (ABNORMAL) ALL CBC WITH AUTO DIFF (05/10/2025 8:27 AM EST)ComponentValueRef RangeTest MethodAnalysis TimePerformed AtPathologist SignatureTBH WBC8.24.0 - 11.0 10 3/uLTBHTBH RBC4.284.20 - 5.40 10 6/uLTBHTBH HGB10.5(L)12.0 - 16.0 g/dL TBHTBH HCT33.4(L)36.0 - 48.0 %TBHTBH MCV78.0(L)81.0 - 99.0 fLTBHTBH MCH24.5(L) 26.7 - 34.0 pgTBHTBH MCHC31.429.9 - 35.2 g/dLTBHTBH RDW15.4(H)11.0 - 15.0 %TBH TBH JEO089963 - 450 10 3/uLTBHTBH MPV9.79.5 - 13.5 fLTBHNEUTROPHILS PERCENT AUTO60.643.0 - 75.0 %TBHLYMPHOCYTES PERCENT AUTO24.620.5 - 60.0 %TBHMONOCYTES PERCENT AUTO11.91.7 - 12.0 %TBHTBH EO %2.20.9 - 7.0 %TBHBASOPHILS PERCENT AUTO 0.50.2 - 2.0 %TBHIMMATURE GRANULOCYTES PCT AUTO0.20.0 - 0.5 %TBHNEUTROPHILS ABSOLUTE AUTO5.01.4 - 6.5 10 3/uLTBHLYMPHOCYTES ABSOLUTE AUTO2.01.2 - 3.8 10 3/uLTBHMONOCYTES ABSOLUTE AUTO1.0(H)0.3 - 0.8 10 3/uLTBHTBH EO #0.20.0 - 0.7 10 3/uLTBHBASOPHILS ABSOLUTE AUTO0.00.0 - 0.1 10 3/uLTBHIMMATURE GRANULOCYTES ABS AUTO0.020.00 - 0.03 10 3/uLTBHSpecimen (Source)Anatomical Location / LateralityCollection Method / VolumeCollection TimeReceived Time05/10/2025 8:27 AM EST05/10/2025 8:27 AM EST Narrative [facility] - 05/10/2025 8:30 AM EST Authorizing ProviderResult TypeResult StatusCorey Yoshi DOCLINISYNCFinal Result Performing OrganizationAddressCity/State/ZIP CodePhone Number [facility] documented in this encounter Visit Diagnoses Not on filedocumented in this encounter Additional Health Concerns Active ProblemsNoted DateDiagnosed DateOB Qcpyfogxy14/01/2023 documented as of this encounter Care Teams Team MemberRelationshipSpecialtyStart DateEnd Date Daniel Landry MD [facility] [place] [address] PCP - GeneralFamily Medicine08/24/23 Eula Garcia DO [address] [place], [place] [id number] Referring PhysicianNeurology08/24/23 Julia Chen MD [address] [place] [address] Referring PhysicianFamily Medicine08/24/23documented as of this encounter
--- OUTSIDE RECORDS SUMMARY | 2025-05-12 15:15 | XMS_ITS | Clinical Summary ---
Author Organization [facility] Address [address] [facility] [place] [address] Care Team Providers Care Spiral Winding Machine Helper Name Role Phone Pcp, No Primary Care Provider [phone] Allergies No known active allergies Medications MedicationSigDispense QuantityRefillsLast FilledStart DateEnd DateStatus baclofen (LIORESAL) 10 MG tablet TAKE 1 TABLET BY MOUTH THREE TIMES DAILYActive Vyvanse 40 mg capsule TAKE 1 CAPSULE BY MOUTH EVERY EAXUCOT91/23/2025Active lorazepam (ATIVAN) 0.5 MG tablet TAKE 1 TABLET BY MOUTH DAILY NEEDEDActive nortriptyline (PAMELOR) 10 MG capsule TAKE 2 CAPSULES BY MOUTH TWICE DAILYActive pregabalin (LYRICA) 200 MG capsule TAKE 1 CAPSULE BY MOUTH TWICE DAILYActive Social History Tobacco UseTypesPacks/DayYears UsedDateSmoking Tobacco: NeverSmokeless Tobacco: Never Tobacco Cessation:Counseling Given: Yes CommentsNoSex and Gender InformationValueDate RecordedSex Assigned at BirthNot on fileLegal XdpUstjgk37/06/2021 10:34 AM EDTGender IdentityNot on file Sexual OrientationNot on file Plan of Treatment Not on file Medical Devices Not on file Insurance Advance Directives TypeDate RecordedPatient RepresentativeExplanationAdvance Directives and Living Will09/25/2020 10:40 AM Care Teams Team MemberRelationshipSpecialtyStart DateEnd Date Pcp, No PCP - GeneralFamily Medicine12/23/24
--- OUTSIDE RECORDS SUMMARY | 2025-05-12 15:15 | XMS_ITS | Clinical Summary ---
Author Organization [facility] Address [address], [address] [place] [address] Care Team Providers Care Roving Hauler Name Role Phone Reanna Chenmarcos Hastings [employer] - POT LINING SUPERVISOR Primary Care Provide r Allergies No known [...] Domain Source: IP Abuse ScreeningAnswerDate Recorded Physical hgmcxDdbwvh86/01/2025Verbal amxjgUgyvjk93/01/2025Emotional abuseDenies 05/23/2024Financial cmnyaPfhffs55/01/2025Sexual jlyuhMdpkuu18/01/2025 CommentsNoSex and Gender InformationValueDate RecordedSex Assigned at BirthNot on fileLegal UoeTqwnrd19/07/2024 10:47 PM EDTGender IdentityNot on fileSexual OrientationNot on file Last Filed Vital Signs Vital SignReadingTime TakenCommentsBlood Beswbsae498/66005/23/2024 11:23 AM EST Kxtbf124505/23/2024 11:23 AM RUEFnmnjoojsdn87.5 ??C (97.7 ??F)05/23/2024 11:23 AM ESTRespiratory Uety315805/23/2024 11:23 AM ESTOxygen Fjiokmvtld986%05/23/2024 11:23 AM ESTInhaled Oxygen Concentration--Wghqyj46.8 kg (220 lb)05/23/2024 11:23 AM KRVBwwsjc070.6 cm (5' 4 )05/23/2024 11:23 AM ESTBody Mass Index37.76 05/23/2024 11:23 AM EST Plan of Treatment Health MaintenanceDue DateLast DoneCommentsDTaP/Tdap/Td vaccine (1 - Tdap) 2017Flu vaccine (#1)12/21/2024OVID-19 Vaccine ( - season) 2025Polio vaccineAged OutNo longer eligible based on patient's age to complete this topic Insurance * Guarantor: Carrie BernsteinAccount TypeRelation to PatientDate of BirthPhone Billing AddressPersonal/VfxrjiPlvt2000 [address] [place] [address] Care Teams Team MemberRelationshipSpecialtyStart DateEnd Date Julia Chen, [employer] P[employer] LINING SUPERVISOR [address] [place] [address] PCP - General05/23/24
--- OUTSIDE RECORDS SUMMARY | 2025-05-12 15:15 | XMS_ITS | Patient Health Record ---
Author Organization [facility] [place] Address [address] [place] [address] Care Team Providers Care Biomass Plant Manager Name Role Phone Julia Chen Primary Care Provider Allergies No Known Allergies Results Component Value Reference Range Notes XR chest 2V Reviewed date:2025 03:26:16 PM Interpretation: Performing Lab: Notes/Report: Source Facility: [place] [address] XRay Report Signed Patient: LADI BERNSTEIN MR#: [id number] : 2000 Acct:[id number] Age/Sex: 25 / F ADM Date: 05/06/25 Loc: PST Attending Dr: Mary Belle D.O. Ordering Physician: Mary Belle D.O. Date of Service: 05/06/25 Procedure(s): XR chest 2V Accession Number(s): [id number] cc: JULIA CHEN ; Mary Belle D.O. [place] [id number] Patient Name: LADI BERNSTEIN MRN: [id number] date: 2000 Sex: F Assigned Patient Location: SURGOUT Current Patient Location: SURGOUT Accession/Order Number: [id number] Exam Date: 2025 13:20 Report Date: 2025 13:49 At the request of: MAYR BELLE DO Procedure: XR chest 2V PA [...] Irvin M.D. 2025 1:49 PM Dictation Location: [place] [address] Electronically authenticated by: [id number] Y Date: 2025 13:49 Dictated By: Alyssa Irvin M.D. Signed By: 05/06/25 1351 DD/ 1349 TD/TT: Infantry Officer: CBC AUTO DIFF Reviewed date:05/10/2025 09:05:31 AM Interpretation: Performing Lab: Notes/Report: [facility] , White Blood Count 8.2 4.0-11.0 10 3/uL Red Blood Count4.284.20-5.40 10 6/gSJxwztvziby67.512.0-16.0 g/mDZqaclgxedl46.4 36.0-48.0 %Mean Corpuscular Ihykjm89.081.0-99.0 fLMean Corpuscular Hemoglobin 24.526.7-34.0 pgMean Corpuscular HGB Conc31.429.9-35.2 g/dLRed Cell Distribution Width15.411.0-15.0 %Platelet Fnzrg889824-390 10 3/uLMean Platelet Volume9.79.5- 13.5 fLNeutrophils Percent Auto60.643.0-75.0 %Lymphocytes Percent Auto24.620.5- 60.0 %Monocytes Percent Auto11.91.7-12.0 %Eosinophils Percent Auto2.20.9-7.0 % Basophils Percent Auto0.50.2-2.0 %Immature Granulocytes Pct Auto0.20.0-0.5 % Neutrophils Absolute Auto5.01.4-6.5 10 3/uLLymphocytes Absolute Auto2.01.2-3.8 10 3/uLMonocytes Absolute Auto1.00.3-0.8 10 3/uLEosinophils Absolute Auto0.20.0- 0.7 10 3/uLBasophils Absolute Auto0.00.0-0.1 10 3/uLImmature Granulocytes Abs Auto0.020.00-0.03 10 3/uLPerforming Lab:see noteML - [facility] LB PREG QUANT HCG Reviewed date:05/10/2025 09:05:31 AM Interpretation: Performing Lab: Notes/Report: [facility] ,HCG Quantitative<1 5-50 0.2-1 WEEK 50-500 1-2 WEEKS 100-5,000 2-3 WEEKS 500-10,000 3-4 WEEKS 1,000-50,000 4-5 WEEKS 10,000-100,000 5-6 WEEKS 15,000-200,000 6-8 WEEKS 10,000-100,000 2-3 MONTHS Performing Lab:see noteML - [facility] LB Reason For Referral No Information Medications Medication [...] since you last smoked?6-12 monthsAdditional Findings: Tobacco Tvn-TwurFk-sdhndfem cigarette smoker (10-19/day)Alcohol Screen (Audit-C) Question Answer [...] containing alcohol in the past year?Never (0 point)Dmyjjg8CuxqtndhbvcqedAgighzvb AUDIT-C (Standard) Question Answer Notes Did you have a drink containing alcohol in the p ast year? 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)Active confirmedProblemSpinal stenosis in cervical region (24748376)Spinal stenosis, cervical region (M48.02)ActiveconfirmedProblemSciatica (84609966)Lumbago with sciatica, right side (M54.41)ActiveconfirmedProblemSciatica (73489671)Lumbago with sciatica, left side (M54.42)ActiveconfirmedProblemParesthesia (finding) (93476527)Paresthesia of skin (R20.2)ActiveconfirmedProblemAnxiety (55288210) Anxiety (F41.9)ActiveconfirmedProblemEndometriosis (201294423)Endometriosis (N80.9)ActiveconfirmedProblemCannabis abuse (69092170)Marijuana use (F12.10) ActiveconfirmedProblemAttention deficit hyperactivity disorder (995192864)ADHD (F90.9)Activeconfirmed Encounters Encounter Location Date Provider Diagnosis [facility] [address] [place] [address] 08/24/2024 Julia Chen Plan Of Treatment Pending [...] End Date [employer] [place] [address] SHIV [place]QUEZ [id number] Ariella Bernsteinelf - patient is the insured Medical (General) History Medical History History ICD Code Anxiety F41.9 Marijuana use F12.10 Overweight E66.3 ADHD F90.9 Endometriosis N80.9 Surgical History Surgery Date(Month/Year) Tonsilectomy Ear TubesCESAREAN HFZVHTLP64/15/2023LaproscopyGallbladderHospitalization History Reason Date(Month/Year) MS Transverse MyelitisChild Birth03/2023
--- OUTSIDE RECORDS SUMMARY | 2025-05-12 15:15 | XMS_ITS | Clinical Summary ---
Author Organization [facility] Address [address] [place] [address] Phone Care Team Providers Care Trimming Operator Name Role Phone Unavailable Primary Care Provider Unavailabl e Social History Tobacco UseTypesPacks/DayYears UsedDateSmoking Tobacco: Never Assessed CommentsUnknownSex and Gender InformationValueDate RecordedSex Assigned at Not on fileLegal BvpHgddzi26/26/2022 5:40 AM ESTGender IdentityNot on fileSexual OrientationNot on file Plan of Treatment Health MaintenanceDue DateLast DoneCommentsHIV Bgewifnyb1998Lipid Panel 2000Yearly Adult Onjhjjeq1998MMR Vaccines (1 of 1 - Standard series) 1999Hepatitis C Bioiagxir57/15/2016Hepatitis B Vaccines (1 of 3 - 19+ 3- dose series)2017Cervical Cancer Badxnvsdn89/15/2019HPV/Mskrkw3905/06/2019Pap Smear2019DTaP/Tdap/Td Vaccines (1 - Tdap)2020COVID-19 Vaccine (1 [...] Carrie Bernstein TypeRelation to PatientDate of PhoneBilling AddressPersonal/OkilrxWbhb2000 [address] [place] [address]
--- OUTSIDE RECORDS SUMMARY | 2025-05-12 15:15 | XMS_ITS | Encounter Summary ---
Author Organization [facility] Address [address] [place] [address] Care Team Providers Care Modern Dancer Name Role Phone Eula Garcia DO Unavailable [phone] Daniel Landry MD Primary Care Provider [phone] Julia Chen MD Unavailable [phone] Encounter Details DateTypeDepartmentCare Team (Latest Contact Info)Nyzvetmjvtq87/15/2025linisync Result Encounter [facility] External Department Unsolicited Mary Belle DO [address] [facility] [place] [address] Social History Tobacco UseTypesPacks/DayYears UsedDateSmoking Tobacco: FormerCigarettes 2016 - 01/01/2023Smokeless Tobacco: Never Comments:Was a pack a day sm oker quit October 2022 Alcohol UseStandard Drinks/WeekCommentsNot Currently0 (1 standard drink = 0.6 oz pure alcohol)Maybe once a monthCommentsNoSex and Gender InformationValue Date RecordedSex Assigned at BirthNot on fileLegal OgrGxlqdr13/15/2023 10:02 PM EDTGender IdentityNot on fileSexual OrientationNot on filedocumented as of this encounter Plan of Treatment DateTypeDepartmentCare Team (Latest Contact Info)Yyzecsvmwvn65/29/2025 2:30 PM ESTOffice Visit [facility] Maria Luisa OBLILY [address] [place] [address] Flora Quintanilla PA [address] [place] [address] [place] [address] documented as of this encounter Goals GoalPatient [...] EST Narrative 2025 1:51 PM EST [facility] ?[address] ? [place] [address] ?XRay Report ? Signed ? Patient: CARRIE BERNSTEIN Yi ?MR#: [id number] ?? : 2000 ?Acct:[id number] ?? Age/Sex: 25 / F ?ADM Date: 05/06/25 ?? Loc: PST ? Attending Dr: Mary Belle D.O. ? Ordering Physician: Mary Belle D.O. ?? Date of Service: 05/06/25 ?? Procedure(s): XR chest 2V ?? Accession Number(s): [id number] ? cc: JULIA CHEN ; Mary Belle D.O. ? [facility] ? [address] ? [place] [address] ? Patient Name: ?? CARRIE BERNSTEIN ? MRN: [facility]:[id number] ? date: 2000 ?Sex: F ?? Assigned Patient Location: SURGOUT ?? Current Patient Location: SURGOUT ?? Accession/Order Number: [id number] ?? Exam Date: 2025 ??13:20 ?Report Date: [...] Dictation Location: RADIO-PC-30 ? Electronically authenticated by: [id number] ??Y ?? Date: 2025 ??13:49 ? Dictated By: ?Alyssa Irvin M.D. ? Signed By: ?05/06/25 1351 ? DD/ 1349 ? TD/TT: ? Dehydrogenation Operator Head: Procedure Note Radiology, Radiologist, - [address] [place] [address] XRay Report Signed Patient: CARRIE BERNSTEIN NMR#: [id number] : 2000Acct:[id number] Age/Sex: 25 / FADM Date: 05/06/25 Loc: PST Attending Dr: Mary Belle D.O. Ordering Physician: Mary Belle D.O. Date of Service: 05/06/25 Procedure(s): XR chest 2V Accession Number(s): [id number] cc: JULIA CHEN ; Mary Belle D.O. The [place] [id number] Patient Name: CARRIE BERNSTEIN MRN: [id number]:[id number] date: 2000 Sex: F Assigned Patient Location: [facility] Current Patient Location: [facility] Accession/Order Number: [id number] Exam Date: 2025 13:20 Report Date: 2025 [...] Irvin M.D. 2025 1:49 PM Dictation Location: [place] [address] Electronically authenticated by: [id number] Y Date: 3:49 Dictated By: Alyssa Irvin M.D. Signed By:05/06/25 1351 DD/ 1349 TD/TT: Dehydrogenation Operator Head: Authorizing ProviderResult TypeResult StatusCorey Yoshi DOCLINISYNC IMAGINGFinal Result documented in this encounter Visit Diagnoses Not on filedocumented in this encounter Additional Health Concerns Active ProblemsNoted DateDiagnosed DateOB Rdaefxhik75/01/2023 documented as of this encounter Care Teams Team MemberRelationshipSpecialtyStart DateEnd Date Daniel Landry MD [address] [place] [address] PCP - GeneralFamily Medicine08/24/23 Eula Garcia DO [address] [place] [address] Referring PhysicianNeurology08/24/23 Julia Chen MD [address] [place] [phone] Referring PhysicianFamily Medicine08/24/23documented as of this encounter
--- OUTSIDE RECORDS SUMMARY | 2025-05-12 15:15 | XMS_ITS | Clinical Summary ---
Author Organization [facility] Address [address] [place] [address] Care Team Providers Care Food Service Hotel Runner Name Role Phone Eula Garcia DO Unavailable [phone] Daniel Landry MD Primary Care Provider [phone] Julia Chen MD Unavailable [phone] Allergies Active AllergyReactionsCriticalityNoted DateCommentsCoconut (Cocos Nucifera) Pwoikhy6101/25/2024oconut Flavoring Agent (Non-Screening)12/17/2022 Other Reaction(s): Unknown Medications [...] MG tablet PLEASE SEE ATTACHED FOR DETAILED RZEAKURQFP53/03/2024ctive pregabalin (Lyrica) 100 MG capsule 09/23/2023ctive Active Problems ProblemNoted DateDiagnosed DateParesthesia of skin09/15/20234098Ekftmpgsgy27/25/2024 Tension xxoeziyx93/25/2024Vitamin D bzugutgngz26/25/2024 Encounters DateTypeDepartmentCare TxucJlrwsqandys61/19/2025linisync Result Encounter [facility] External Department Unsolicited Mary Belle, DO 2025linisync Result Encounter [facility] External [facility] Unsolicited Mary Belle, DO 04/15/2025 2:30 PM ESTProcedure Visit [facility] [address] [place] [id number] Mary Belle, Pre-op examination; Menorrhagia with irregular cycle; Abnormal uterine bleeding; Pelvic pain in okxsyw5403/13/2025 1:50 PM EDTOffice Visit [facility] TREJO [address] [place] [address] Mary Belle, Menorrhagia with irregular cycle; Cold sore1amboo flowsheet [facility] OBL[facility] [address] [place] [phone] Mary Belle, DO 03/12/2025Travelfrom Last 3 Months Family History [...] Date RecordedSex Assigned at BirthNot on fileLegal RzcKitzpb00/15/2023 10:02 PM EDTGender IdentityNot on fileSexual OrientationNot on file Last Filed Vital Signs Vital SignReadingTime TakenCommentsBlood Kuamgqdm053/7211 2:49 PM EST Vlwiz932009/15/2023 8:40 AM EDTTemperature--Respiratory Khvg071409/15/2023 8:40 AM EDTOxygen Ezxpurselb566%09/15/2023 8:40 AM EDTInhaled Oxygen Concentration-- Inhqgr702 kg (222 lb)04/15/2025 2:49 PM WWGHmvafi690.6 cm (5' 4 )01/09/2024 1:49 PM EDTBody Mass Index38.11001/09/2024 1:49 PM EDT Plan of Treatment DateTypeDepartmentCare Team (Latest Contact Info)Rgfmpcsrfqy42/29/2025 2:30 PM ESTOffice Visit [facility] OBGYN [address] [place] [phone] Flora Quintanilla PA [address] [place], [place] [id number] Health MaintenanceDue DateLast DoneCommentsMedicare Annual Wellness (AWV) OVID-19 Vaccine ( season)2025Influenza Vaccine (#1)/, 02/26/2014Pneumococcal Vaccine: Pediatrics (0 to 5 Years) and At-Risk Patients (6 to 64 Years)Aged OutNo longer eligible based on patient's age to complete this topic Goals GoalPatient Goal TypeAssociated ProblemsRecent ProgressPatient-Stated?Author Reminders Care PlanOB RemindersNoOpen Scheduling, Background Procedures Procedure NamePriorityDate/TimeAssociated DiagnosisCommentsTBH PREG QUANT HCG Wmfjbyx9905/10/2025 8:27 AM EST ALL CBC WITH AUTO OHPKOnbzldg10/19/2025 8:27 AM EST XR CHEST 2V107/07/2024 1:49 PM EST POCT , DYMOZTkyeonf13/24/2025 3:19 PM EST Menorrhagia with irregular cycle ENDOMETRIAL YGCPQIXbkolej84/24/2025 3:17 PM EST Menorrhagia with irregular cycle from Last 3 Months Results * [facility] PREG QUANT HCG (05/10/2025 [...] DOCLINISYNCFinal Result Performing OrganizationAddressCity/State/ZIP CodePhone Number CLINISYNC TB * (ABNORMAL) ALL CBC WITH AUTO DIFF (05/10/2025 8:27 AM EST)ComponentValueRef RangeTest MethodAnalysis TimePerformed AtPathologist SignatureTBH WBC8.24.0 - 11.0 10 3/uLTBHTBH RBC4.284.20 - 5.40 10 6/uLTBHTBH HGB10.5(L)12.0 - 16.0 g/dL TBHTBH HCT33.4(L)36.0 - 48.0 %TBHTBH MCV78.0(L)81.0 - 99.0 fLTBHTBH MCH24.5(L) 26.7 - 34.0 pgTBHTBH MCHC31.429.9 - 35.2 g/dLTBHTBH RDW15.4(H)11.0 - 15.0 %TBH TBH JMA328706 - 450 10 3/uLTBHTBH MPV9.79.5 - 13.5 [...] Yoshi DOCLINISYNCFinal Result Performing OrganizationAddressCity/State/ZIP CodePhone Number CLINAZRANC TBH * XR CHEST 2V (2025 1:49 PM EST)Anatomical RegionLateralityModalityOther Specimen (Source)Anatomical Location / LateralityCollection Method / Volume Collection TimeReceived Time2025 1:49 PM EST Narrative 2025 1:51 PM EST [facility] ?[address] ? [place] [address] ?XRay Report ? Signed ? Patient: CARRIE BERNSTEIN ?MR#: [id number] ?? : 2000 ?Acct:[id number] ?? Age/Sex: 25 / F ?ADM Date: 05/06/25 ?? Loc: PST ? Attending Dr: Mary Belle D.O. ? Ordering Physician: Mary Belle D.O. ?? Date of Service: 05/06/25 ?? Procedure(s): XR chest 2V ?? Accession Number(s): [id number] ? cc: JULIA CHEN ; Mary Belle D.O. ? [facility] ? [address] ? [place] [address] ? Patient Name: ?? CARRIE BERNSTEIN ? MRN: [facility]:[id number] ? date: 2000 ?Sex: F ?? Assigned Patient Location: SURGOUT ?? Current Patient Location: SURGOUT ?? Accession/Order Number: [id number] ?? Exam Date: 2025 ??13:20 ?Report Date: [...] Dictation Location: RADIO-PC-30 ? Electronically authenticated by: [id number] ??Y ?? Date: 2025 ??13:49 ? Dictated By: ?Alyssa Irvin M.D. ? Signed By: ?05/06/25 1351 ? DD/ 1349 ? TD/TT: ? Flat Spring Assembler: Procedure Note Radiology, Radiologist, MD - [address] [place] [address] XRay Report Signed Patient: CARRIE BERNSTEIN [facility]#: [id number] : 2000Acct:[id number] Age/Sex: 25 / FADM Date: 05/06/25 Loc: PST Attending Dr: Mary Belle D.O. Ordering Physician: Mary Belle D.O. Date of Service: 05/06/25 Procedure(s): XR chest 2V Accession Number(s): [id number] cc: JULIA CHEN ; Mary Belle D.O. The [place] [id number] Patient Name: CARRIE BERNSTEIN MRN: [facility]:[id number] date: 2000 Sex: F [facility] Accession/Order Number: [id number] Exam Date: 2025 13:20 Report Date: 2025 [...] Irvin M.D. 2025 1:49 PM Dictation Location: [place] [address] Electronically authenticated by: [id number] Y Date: 3:49 Dictated By: Alyssa Irvin M.D. Signed By:05/06/25 1351 DD/ 1349 TD/TT: Flat Spring Assembler: Authorizing ProviderResult TypeResult StatusCorey Yoshi DOCLINISYNC IMAGINGFinal Result * POCT , urine manually resulted (04/15/2025 3:19 PM EST)ComponentValue Ref RangeTest MethodAnalysis TimePerformed AtPathologist SignaturePreg Test, UrNegativeNegativeSpecimen (Source)Anatomical Location / LateralityCollection Method / VolumeCollection TimeReceived QwswSyxag16/24/2025 3:19 PM EST Narrative Authorizing ProviderResult TypeResult [...] Additional Health Concerns Active ProblemsNoted DateDiagnosed DateOB Dmqrzlorw72/01/2023 Insurance * Guarantor: Carrie Bernsteincofeliz TypeRelation to PatientDate of PhoneBilling AddressPersonal/LwfjgyQify2000 [facility] [place] [address] Care Teams Team MemberRelationshipSpecialtyStart DateEnd Daniel Landry MD [facility] [place] [address] PCP - GeneralFamily Medicine08/24/23 Eula Garcia DO [address] [place], [place] [id number] Referring PhysicianNeurology08/24/23 Julia Chen MD [address] [place] [address] Referring PhysicianS[facility]ulding [facility] Medicine08/24/23
--- NOTE | 2025-05-12 15:37 | ED.EYEPROB1 ---
HPI - Eye Problem General Chief complaint: Eye Problems Stated complaint: R EYE PAIN Time Seen by Provider: 05/12/25 15:04 Source: patient Mode of arrival: walk-in History of Present Illness HPI Narrative: Patient is a 25-year-old female presents to the ER with concerns of bilateral eye irritation. Patient states she noticed some swelling and discomfort on Tuesday. She admits to having a outpatient surgery and was told that they had to put tape over her eyes. She denied any severe pain at that time concerning for corneal abrasion. She has had slow but progressive swelling of her right eyelid that is painful on the upper side and the spouse noted that there was a small bump on the inside of the eyelid. She does not think there was any foreign body or injury. She does admit to wearing contacts too long. Patient states she does not have glasses at home and has been wearing month-long contacts for approximately 3 to 4 months. She notes that this morning that there was some slight drainage in both eyes and crusting upon awakening. She also had a recent upper respiratory infection that was mild in the preceding week that has since resolved. Patient states her main concern is that she has MS and is on autoimmune suppressive medication that can make infections worse if they are bacterial. Patient denies any loss of vision but states without her contacts she is legally blind. And cannot even do a visual acuity. She denies any loss of vision. Location: Reports right eye (Only the right upper eyelid is painful) and both eyes Eye Symptoms: Reports redness and discharge Place: Reports home Severity: mild Associated symptoms: Reports none Treatments Prior to Arrival: Reports none Related Data Home Medications ?Medication ?Instructions ?Recorded ?Confirmed baclofen 10 mg tablet 10 mg PO Q12H 02/22/24 05/10/25 lorazepam 0.5 mg tablet (Ativan) 0.5 mg PO DAILY 02/22/24 05/10/25 nortriptyline 10 mg capsule 10 mg PO Q12H 02/22/24 05/10/25 ocrelizumab 30 mg/mL intravenous 300 mg IV .m8pzhori 02/22/24 05/06/25 solution lisdexamfetamine 40 mg capsule 40 mg PO DAILY 05/06/25 05/10/25 pregabalin 200 mg capsule 200 mg PO BID 05/06/25 05/10/25 trazodone 50 mg tablet 50 mg PO QPM 05/06/25 05/10/25 Previous Rx's ?Medication ?Instructions ?Recorded erythromycin 5 mg/gram (0.5 %) eye 0.5 inch ophthalmic (eye) Q6H #3.5 05/12/25 ointment grams Allergies Allergy/AdvReac Type Severity Reaction Status Date / Time coconut Allergy throat Verified 05/06/25 13:04 itching Review of Systems ROS Constitutional Denies: fever or chills Eyes Reports: eye discomfort and eye discharge; Denies: blurry vision, blind spots, dry eyes or seeing flashes Cardiovascular Denies: chest pain or palpitations Respiratory Denies: shortness of breath or cough Gastrointestinal Denies: abdominal pain, nausea or vomiting Musculoskeletal Denies: back pain, neck pain or extremity pain Integumentary/Breast Denies: rash, itching, redness or skin pain Psychiatric Denies: anxiety [facility] Medical History (Updated 05/12/25 @ 15:39 by SUSANA Enciso) Pelvic pain ?R10.20 - Pelvic and perineal pain unspecified side (ICD-10) Abnormal uterine bleeding (AUB) ?N93.9 - Abnormal uterine and vaginal bleeding, unspecified (ICD-10) Anemia ?D64.9 - Anemia, unspecified (ICD-10) Panic attacks ?F41.0 - Panic disorder [episodic paroxysmal anxiety] (ICD-10) Muscle spasm ?M62.838 - Other muscle spasm (ICD-10) Generalized pain ?R52 - Pain, unspecified (ICD-10) Weakness ?R53.1 - Weakness (ICD-10) Migraine ?G43.909 - Migraine, unspecified, not intractable, without status migrainosus (ICD-10) Heartburn ?R12 - Heartburn (ICD-10) Status post hysteroscopy ?Z98.890 - Other specified postprocedural states (ICD-10) PTSD (post-traumatic stress disorder) ?F43.10 - Post-traumatic stress disorder, unspecified (ICD-10) Multiple sclerosis (10/2023) ?G35 - Multiple sclerosis (ICD-10) Menorrhagia ?N92.0 - Excessive and frequent menstruation with regular cycle (ICD-10) Chlamydia ?A74.9 - Chlamydial infection, unspecified (ICD-10) Endometriosis ?N80.9 - Endometriosis, unspecified (ICD-10) Dysmenorrhea ?N94.6 - Dysmenorrhea, unspecified (ICD-10) Depression ?F32.A - Depression, unspecified (ICD-10) Anxiety ?F41.9 - Anxiety disorder, unspecified (ICD-10) ADHD ?F90.9 - Attention-deficit hyperactivity disorder, unspecified type (ICD-10) Vitamin D deficiency ?E55.9 - Vitamin D deficiency, unspecified (ICD-10) Tension headache ?G44.209 - Tension-type headache, unspecified, not intractable (ICD-10) Stuttering ?F80.81 - Childhood onset fluency disorder (ICD-10) Paresthesia of skin ?R20.2 - Paresthesia of skin (ICD-10) Request for sterilization ?Z30.2 - Encounter for sterilization (ICD-10) Surgical History (Updated 05/01/25 @ 13:26 by Carrie Stovall RN) H/O adenoidectomy ?Z90.89 - Acquired absence of other organs (ICD-10) History of salpingectomy (03/02/24) ?Z90.79 - Acquired absence of other genital organ(s) (ICD-10) Hx of tonsillectomy ?Z90.89 - Acquired absence of other organs (ICD-10) H/O myringotomy ?Z98.890 - Other specified postprocedural states (ICD-10) H/O laparoscopy ?Z98.890 - Other specified postprocedural states (ICD-10) H/O dilation and curettage ?Z98.890 - Other specified postprocedural states (ICD-10) History of cholecystectomy ?Z90.49 - Acquired absence of other specified parts of digestive tract (ICD-10) H/O section ?Z98.891 - History of uterine scar from previous surgery (ICD-10) Family History (Updated 05/01/25 @ 13:27 by Carrie Stovall RN) Other ADD (attention deficit disorder) Family history of diabetes mellitus Neuropathy Social History (Updated 05/06/25 @ 13:08 by Chelo Palmer NP) Within the past year, how often did you have a drink containing alcohol: never Score interpretation: A score less than 3 is consistent with normal alcohol consumption. 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 General: The patient appears well and in no apparent distress. Patient is resting comfortably on cart. Skin: Warm, dry, no pallor noted. Head: Normocephalic, atraumatic. Eye: Normal extraocular motion, pupils were equal round and reactive to light, the patient had no pain with extraocular motion. The patient had fluorescein dye was instilled in the right eye, patient still has her contact in the left eye and initially declined fluorescein in the left as her pain is mainly in the right, we had a discussion of removal of contact even though this in what is helping her see currently. However after further discussion of concerns of possible damage to her eye with continued contact use she did remove the contact from left eye. . The patient had exam with guzman lamp with no corneal abrasion. There was evidence or minimal conjunctival injection right eye medial aspect. . The patient's eyelid was everted and swept with no evidence of foreign body. + hordelum on inner upper lid medialy with minimal swelling, but tenderness present. No swelling of lower lid. No evidence of . No corneal ulcerations were seen. No evidence of preseptal cellulitis or orbital cellulitis. Ears, Nose, Mouth, and Throat: oral mucosa is moist Respiratory: Patient is in no distress Neurological: Alert and oriented x4, normal speech Psychiatric: Cooperative Constitutional Vital Signs, click to edit/add: Last Vital Signs Temp 99.3 F 05/12/25 14:57 Pulse 108 H 05/12/25 14:57 Resp 18 05/12/25 14:57 BP 148/78 H 05/12/25 14:57 Pulse Ox 100 05/12/25 14:57 Course Vital Signs Vital signs: Vital Signs Temperature 99.3 F 05/12/25 14:57 Pulse Rate 108 H 05/12/25 14:57 Respiratory Rate 18 05/12/25 14:57 Blood Pressure 148/78 H 05/12/25 14:57 Pulse Oximetry 100 05/12/25 14:57 Temperature 99.3 F 05/12/25 14:57 Pulse Rate 108 H 05/12/25 14:57 Respiratory Rate 18 05/12/25 14:57 Blood Pressure 148/78 H 05/12/25 14:57 Pulse Oximetry 100 05/12/25 14:57 MDM - Eye Problem MDM Narrative Medical decision making narrative: Patient presents with bilateral eye irritation however the pain is mostly in the right upper eyelid with evidence of stye. We discussed multiple factors for her eye irritation including recent upper respiratory infection outpatient surgery with the possibility for foreign body or corneal abrasion. Given that she has auto immune suppressed with medication we will treat her with other erythromycin until she is able to get into see her eye doctor for reevaluation. We discussed the importance of not overusing contacts with the possibility for corneal injury. We discussed the need to do warm compresses to the right upper lid for treatment of her stye. Should his symptoms worsen or new symptoms develop she will return to the ER for reevaluation. Patient verbalized understanding and had no other concerns or questions. She will not be driving as her vision is significantly compromised and she is unable to perform a visual acuity without correction. Patient verbalized a plan to contact her eye doctors office tomorrow. The patient is to followup with eye healthcare prof tomorrow. and primary care physician in next 2-3 days or to return to the emergency department should any of the signs or symptoms worsen or new symptoms develop. Patient had questions answered. The patient agrees with the following Diagnosis and Treatment plan and the patient will be discharged home. Differential Diagnosis Differential diagnosis: Likely corneal abrasion, conjunctivitis and corneal ulcer Discharge Plan Discharge Chief Complaint: Eye Problems Clinical Impression: Conjunctivitis Hordeolum Qualifiers: Hordeolum type: unspecified type Laterality: right Eyelid: upper Qualified Code(s): H00.011 - Hordeolum externum right upper eyelid Patient Disposition: Home, Self-Care Time of Disposition Decision: 15:43 Condition: Good Prescriptions / Home Meds: New erythromycin 5 mg/gram (0.5 %) ointment 0.5 inch ophthalmic (eye) Q6H Qty: 3.5 1RF No Action lisdexamfetamine 40 mg capsule 40 mg PO DAILY pregabalin 200 mg capsule 200 mg PO BID trazodone 50 mg tablet 50 mg PO QPM baclofen 10 mg tablet 10 mg PO Q12H lorazepam [Ativan] 0.5 mg tablet 0.5 mg PO DAILY nortriptyline 10 mg capsule 10 mg PO Q12H ocrelizumab 30 mg/mL solution 300 mg IV .a7yhgjcz Print Language: Setswana Instructions: Stye (ED), Conjunctivitis (ED) Additional Instructions: Call your Eye doctor for appt tomorrow for recheck [phone] ( [address] [place] [address]) Referrals: ARCELIA MCGUIRE [Primary Care Provider, Family Practice] - 1 week
[2025-05-12] MEDS: ERYTHROMYCIN OP OINT 0.5% 1 GM TUBE EYE-BOTH (15:58)
== END 2025-05-12 16:02 | disposition home or self-care (01) ==
PROVIDERS: Emergency Provider Emergency Medicine; PCP Nurse Practitioner Family
DX: H10.9 Unspecified conjunctivitis (principal); H00.011 Hordeolum externum right upper eyelid; G35.D Multiple sclerosis, unspecified; Z87.891 Personal history of nicotine dependence
CPT/HCPCS: 99283